=== PATIENT | female | born 1975 | race Caucasian/White ===

== ENCOUNTER 2017-09-03 23:42 | Emergency (ER) | payer BC, MEDICAID, OTHER ==
[2017-09-04] MEDS ORDERED: ACETAMINOPHEN 325 MG TABLET PO ONE (01:44)
[2017-09-04] MEDS ORDERED: CLINDAMYCIN HCL 150 MG CAPSULE PO ONE (01:44)
[2017-09-04] MEDS ORDERED: DEXAMETHASONE SOD PHOS INJ 10 MG/1 ML VIAL IV ONE (01:44)
--- NOTE | 2017-09-04 01:46 | ER Document Report ---
ED General - General Chief Complaint: Neck Swelling Stated Complaint: DIFFICULTY BREATHING Time Seen by Provider: 09/04/17 00:54 Notes: Patient is a 42-year-old female without chronic medical conditions who presents with complaints of 24 hours of neck pain and swelling. The patient reports redness and swelling to the right side of her face that has moved down into her neck. She notes a dull, throbbing, constant pain associated with the swelling. Nothing improves or worsens this discomfort. She denies a history of similar symptoms in the past. She states she believes it is coming from an infected upper posterior right molar. She denies any fever or constitutional symptoms. She states that all subjectively she feels she is having shortness of breath she admits that she has not had any labored breathing and has still been able to tolerate fluids and saliva. She has not seen her general doctor regarding today's concerns. - Related Data Allergies/Adverse Reactions: ethyl alcohol Allergy (Severe, Verified 09/03/17 23:48) Cephalosporins Allergy (Verified 09/03/17 23:48) ciprofloxacin [From Cipro] Allergy (Verified 09/03/17 23:48) fluticasone [From Flonase] Allergy (Verified 09/03/17 23:48) latex Allergy (Verified 09/03/17 23:48) Penicillins Allergy (Verified 09/03/17 23:48) Past Medical History - General Information source: Patient - Social History Smoking Status: Current Every Day Smoker Frequency of alcohol use: None Drug Abuse: None Lives with: Spouse/Significant other Family History: Reviewed & Not Pertinent Review of Systems - Review of Systems Notes: Constitutional: Negative for fever. HENT: Positive for facial pain and neck pain Eyes: Negative for visual changes. Cardiovascular: Negative for chest pain. Respiratory: Negative for shortness of breath. Gastrointestinal: Negative for abdominal pain, vomiting or diarrhea. Genitourinary: Negative for dysuria. Musculoskeletal: Negative for back pain. Skin: Negative for rash. Neurological: Negative for headaches, weakness or numbness. 10 point ROS negative except as marked above and in HPI. Physical Exam - Vital signs Vitals: Temp Pulse Resp BP Pulse Ox 98.9 F 92 22 H 145/87 H 100 09/03/17 23:46 09/03/17 23:46 09/03/17 23:46 09/03/17 23:46 09/03/17 23:46 Interpretation: Hypertensive Notes: PHYSICAL EXAMINATION: GENERAL: Well-appearing, well-nourished and in no acute distress. HEAD: Atraumatic, normocephalic. EYES: Pupils equal round and reactive to light, extraocular movements intact, sclera anicteric, conjunctiva are normal. ENT: nares patent, oropharynx clear without exudates. Moist mucous membranes. NECK: Normal range of motion, supple without lymphadenopathy LUNGS: Breath sounds clear to auscultation bilaterally and equal. No wheezes rales or rhonchi. HEART: Regular rate and rhythm without murmurs ABDOMEN: Soft, nontender, normoactive bowel sounds. No guarding, no rebound. No masses appreciated. EXTREMITIES: Normal range of motion, no pitting or edema. No cyanosis. NEUROLOGICAL: No focal neurological deficits. Moves all extremities spontaneously and on command. PSYCH: Normal mood, normal affect. SKIN: Warm, Dry, normal turgor, mild erythema over the right maxillary sinus region as well as over the right lower mandible Course - Re-evaluation Re-evalutation: 09/04/17 01:44 Patient presents with complaints of neck swelling with associated difficulty swallowing for the past 24 hours. The patient however appears in no distress, vitals within normal limits, quite loquacious on examination and without any apparent difficulty in speaking or breathing. Although the patient states she is having difficult to swallowing she is handling her oral secretions without any difficulty. He does have some mild redness over the right maxillary sinus as well as some mild swelling to the right side of the face. The patient reports that there is significant neck swelling although this appears to be more consistent with soft tissue subcutaneous fat. No stridor or wheezing on exam. History appears most consistent with a likely dental infection with associated facial cellulitis. However given the patient's reported symptoms will proceed with CT of the neck to further clarify. 09/04/17 04:28 CT abdomen soft tissue the neck unremarkable without any evidence of deep soft tissue infection or abscess. Patient has remained hemodynamically within normal limits. Had an anxiety reaction after receiving clindamycin stating that she believes she was having allergic reaction even though she only received the medication to minutes prior. The patient has no symptoms of an acute allergic reaction. She will be discharged home on clindamycin. At this time will discharge with return precautions and follow-up recommendations. Verbal discharge instructions given a the bedside and opportunity for questions given. Medication warnings reviewed. Patient is in agreement with this plan and has verbalized understanding of return precautions and the need for primary care follow-up in the next 24-72 hours. - Vital Signs Vital signs: Temp Pulse Resp BP Pulse Ox 98.9 F 92 12 123/78 97 09/03/17 23:46 09/03/17 23:46 09/04/17 03:40 09/04/17 03:40 09/04/17 03:40 - Laboratory Result Diagrams: 09/04/17 01:05 09/04/17 01:05 Laboratory results interpreted by me: 09/04/17 01:05 RDW 14.1 H - Diagnostic Test Radiology reviewed: Reports reviewed Discharge - Discharge Clinical Impression: Facial cellulitis, Neck discomfort Condition: Good Disposition: HOME, SELF-CARE Additional Instructions: The rash is likely due to infection of your skin. You need to take the antibiotics as prescribed. Do not stop even if the rash goes away until you have completed all the antibiotics. You should also return if you develop fevers with temperature greater than 101, persistent vomiting, worsening pain, or have any other symptoms that are concerning to you. The CT scan of your neck is normal and does not show any evidence of airway narrowing or a deep space infection. Prescriptions: Clindamycin HCl 300 mg PO TID #30 capsule
[2017-09-04 01:53] LABS: ABSOLUTE BASOPHILS # (AUTO) 0.1 10^3/uL (0.0-0.2); ABSOLUTE EOSINOPHILS # (AUTO) 0.4 10^3/uL (0.0-0.6); ABSOLUTE LYMPHOCYTES (AUTO) 2.5 10^3/uL (0.5-4.7); ABSOLUTE MONOCYTES (AUTO) 0.8 10^3/uL (0.1-1.4); ABSOLUTE NEUT (AUTO) 4.4 10^3/uL (1.7-8.2); BASOPHILS % (AUTO) 0.8 % (0-2); EOSINOPHILS % (AUTO) 5.3 % (0-6); HEMATOCRIT 37.4 % (36.0-47.0); HEMOGLOBIN 12.6 g/dL (12.0-15.5); LYMPHOCYTES % (AUTO) 30.8 % (13-45); MEAN CORPUSCULAR HEMOGLOBIN 30.3 pg (27.0-33.4); MEAN CORPUSCULAR HGB CONC 33.8 g/dL (32.0-36.0); MEAN CORPUSCULAR VOLUME 90 fl (80-97); MONOCYTES % (AUTO) 9.9 % (3-13); PLATELET COUNT 272 10^3/uL (150-450); RED BLOOD COUNT 4.17 10^6/uL (3.72-5.28); RED CELL DISTRIBUTION WIDTH 14.1 % (11.5-14.0); SEGMENTED NEUTROPHILS % (AUTO) 53.2 % (42-78); TOTAL CELLS COUNTED % (AUTO) 100 %; WHITE BLOOD COUNT 8.2 10^3/uL (4.0-10.5)
[2017-09-04 02:02] LABS: ANION GAP 13 (5-19); BLOOD UREA NITROGEN 11 mg/dL (7-20); CARBON DIOXIDE 25 mmol/L (22-30); CHLORIDE 106 mmol/L (98-107); GLUCOSE 88 mg/dL (75-110); POTASSIUM 4.1 mmol/L (3.6-5.0); SODIUM 143.5 mmol/L (137-145)
[2017-09-04] MEDS ORDERED: LORAZEPAM INJ 2 MG/1 ML VIAL IV ONE (02:27)
--- NOTE | 2017-09-04 04:18 | RADIOLOGY REPORT (SQ) ---
EXAM DESCRIPTION: CT NECK CHEST WITH IV CONTRAST COMPLETED DATE/TME: 09/04/2017 01:44 CLINICAL HISTORY: 42 years, Female, Evaluate neck swelling, difficulty swallowing COMPARISON: None. TECHNIQUE: Axial CT images of the neck were obtained after administration of IV contrast. Sagittal and coronal reformats were performed. DLP 606 Images stored on PACS. All CT scanners at this facility use dose modulation, iterative reconstruction, and/or weight based dosing when appropriate to reduce radiation dose to as low as reasonably achievable (ALARA). [facility]: Dose Right [facility]: CareDose [facility]: Dose Right [facility]: Teradose 4D [facility]: TrillTip LIMITATIONS: None. FINDINGS: There is no concerning asymmetry along the aerodigestive tract. No cervical lymphadenopathy. Glands: Thyroid: Unremarkable. Submandibular: Unremarkable. Parotid: Unremarkable. [place] tonsils: Unremarkable. Parapharyngeal fat: No displacement. Epiglottis: Unremarkable. Catering Chef space: Unremarkable. Prevertebral space: No edema. Vascular structures: Unremarkable. Bones: Unremarkable. IMPRESSION: Unremarkable CT of the neck TECHNICAL DOCUMENTATION: Quality ID # [id number]: Final reports with documentation of one or more dose reduction techniques (e.g., Automated exposure control, adjustment of the mA and/or kV according to patient size, use of iterative reconstruction technique) 2010 [employer]- All Rights Reserved
[2017-09-04 05:45] VITALS: BP 104/70
== END 2017-09-04 05:46 | disposition home or self-care (01) ==
LOC: EDBD → ER 23:42
DX: L03.211 Cellulitis of face (principal); M54.2 Cervicalgia; F17.200 Nicotine dependence, unspecified, uncomplicated; R13.10 Dysphagia, unspecified; F41.1 Generalized anxiety disorder; R03.0 Elevated blood-pressure reading, without diagnosis of hypertension
CPT/HCPCS: 99284; 96374; 36415; 85025; 80048; 70491; J2060

== ENCOUNTER 2017-09-05 01:56 | Emergency (ER) | payer SELFPAY ==
[2017-09-05] MEDS ORDERED: DIPHENHYDRAMINE HCL 50 MG CAPSULE PO ONE (03:25)
[2017-09-05] MEDS ORDERED: IBUPROFEN 600 MG TABLET PO ONE (03:25)
--- NOTE | 2017-09-05 03:38 | ER Document Report ---
ED General - General Chief Complaint: Allergic Reaction Stated Complaint: SWELLING IN THROAT Time Seen by Provider: 09/05/17 03:12 Notes: The patient is a 42-year-old female who presents with a scratchy throat. She was started on clindamycin for a mild facial cellulitis yesterday after she had a negative CAT scan for abscesses yesterday. She is also having some lymph node swelling. She denies difficulty swallowing, hives, nausea, vomiting or back pain or neck pain. TRAVEL OUTSIDE OF THE [place] IN LAST 30 DAYS: No - Related Data Allergies/Adverse Reactions: ethyl alcohol Allergy (Severe, Verified 09/03/17 23:48) Cephalosporins Allergy (Verified 09/03/17 23:48) ciprofloxacin [From Cipro] Allergy (Verified 09/03/17 23:48) fluticasone [From Flonase] Allergy (Verified 09/03/17 23:48) latex Allergy (Verified 09/03/17 23:48) Penicillins Allergy (Verified 09/03/17 23:48) Past Medical History - General Information source: Patient - Social History Smoking Status: Current Every Day Smoker Family History: Reviewed & Not Pertinent - Past Medical History Cardiac Medical History: Reports: Hx Heart Attack - 2010, Hx Hypertension Pulmonary Medical History: Reports: Hx COPD Neurological Medical History: Reports: Hx Migraine, Hx Seizures Renal/ Medical History: Denies: Hx Peritoneal Dialysis Past Surgical History: Reports: Hx Hysterectomy, Hx Nose Surgery, Hx Tubal Ligation Review of Systems - Review of Systems Notes: REVIEW OF SYSTEMS: CONSTITUTIONAL: -fevers, -chills EENT: -eye pain, -difficulty swallowing, -nasal congestion CARDIOVASCULAR: -chest pain, -syncope. RESPIRATORY: -cough, -SOB GASTROINTESTINAL: -abdominal pain, -nausea, -vomiting, -diarrhea GENITOURINARY: -dysuria, -hematuria MUSCULOSKELETAL: -back pain, -neck pain SKIN: -rash or skin lesions. HEMATOLOGIC: -easy bruising or bleeding. LYMPHATIC: -swollen, enlarged glands. NEUROLOGICAL: -altered mental status or loss of consciousness, -headache, - neurologic symptoms PSYCHIATRIC: -anxiety, -depression. ALL OTHER SYSTEMS REVIEWED AND NEGATIVE. Physical Exam - Vital signs Vitals: Temp Pulse Resp BP Pulse Ox 98.4 F 91 20 141/84 H 97 09/05/17 01:59 09/05/17 01:59 09/05/17 01:59 09/05/17 01:59 09/05/17 01:59 - Notes Notes: PHYSICAL EXAMINATION: GENERAL: Well-appearing, well-nourished and in no acute distress. HEAD: Atraumatic, normocephalic. EYES: Pupils equal round and reactive to light, extraocular movements intact, sclera anicteric, conjunctiva are normal. ENT: nares patent, oropharynx clear without exudates. Moist mucous membranes. NECK: Normal range of motion, supple with B/L anterior cervical lymphadenopathy LUNGS: Breath sounds clear to auscultation bilaterally and equal. No wheezes rales or rhonchi. HEART: Regular rate and rhythm without murmurs ABDOMEN: Soft, nontender, normoactive bowel sounds. No guarding, no rebound. No masses appreciated. EXTREMITIES: Normal range of motion, no pitting or edema. No cyanosis. NEUROLOGICAL: Cranial nerves grossly intact. Normal speech, normal gait. Normal sensory and motor exams. PSYCH: Normal mood, normal affect. SKIN: Warm, Dry, normal turgor, no rashes or lesions noted. Course - Re-evaluation Re-evalutation: Patient appears well and has absolutely no signs of airway involvement. She also has no signs of anaphylaxis at this time. Instructed her to continue her clindamycin, use Motrin for her lymphadenopathy and Benadryl for any itchiness. - Vital Signs Vital signs: Temp Pulse Resp BP Pulse Ox 97.7 F 86 16 126/83 H 97 09/05/17 05:02 09/05/17 05:02 09/05/17 05:02 09/05/17 05:02 09/05/17 05:02 Discharge - Discharge Clinical Impression: Lymphadenopathy of head and neck Condition: Stable Disposition: HOME, SELF-CARE Additional Instructions: Continue the clindamycin. You may take Motrin every 6 hours for any pain and Benadryl every 6 hours for any itchiness. Forms: Smoking Cessation Education, Elevated Blood Pressure
[2017-09-05 05:09] VITALS: BP 126/83
== END 2017-09-05 05:02 | disposition home or self-care (01) ==
LOC: ER 01:56
DX: L03.211 Cellulitis of face (principal); R59.0 Localized enlarged lymph nodes; R09.89 Other specified symptoms and signs involving the circulatory and respiratory systems; I10 Essential (primary) hypertension; J44.9 Chronic obstructive pulmonary disease, unspecified; F17.200 Nicotine dependence, unspecified, uncomplicated; Z88.1 Allergy status to other antibiotic agents; Z88.8 Allergy status to other drugs, medicaments and biological substances; Z91.040 Latex allergy status; Z88.0 Allergy status to penicillin
CPT/HCPCS: 99283

== ENCOUNTER 2017-10-05 22:00 | Emergency (ER) | payer SELFPAY ==
[2017-10-05] MEDS ORDERED: ASPIRIN 81 MG TABLET, CHEWABLE PO ONE (23:08)
--- NOTE | 2017-10-05 23:14 | ER Document Report ---
ED Medical Screen (RME) - General Chief Complaint: General Weakness Stated Complaint: SYNCOPE Time Seen by Provider: 10/05/17 23:06 Mode of Arrival: Medic Information source: Patient Notes: Patient is a 42-year-old female who presents with chief complaint of near syncope. Patient reports she was out shopping with her son when she felt very dizzy and nearly passed out. Patient reports she currently has shortness of breath, chest pain, dizziness and left arm pain/spasms. Patient reports that she had a negative treadmill stress test done last month at [facility], unknown if she had an echocardiogram done. Patient is alert, oriented and nontoxic in appearance. Skin is warm and dry, nondiaphoretic. Patient's vital signs are stable other than mild tachycardia noted on arrival, heart rate was 113. Patient reports history of hypertension. Patient also reports that over the last 6 weeks she has had a lot of GI issues , states she is being worked up by her primary care provider and is currently being treated for a urinary tract infection. I have greeted and performed a rapid initial assessment of this patient. A comprehensive ED assessment and evaluation of the patient, analysis of test results and completion of the medical decision making process will be conducted by additional ED providers. Dictation of this chart was performed using voice recognition software; therefore, there may be some unintended grammatical errors. TRAVEL OUTSIDE OF THE [place] IN LAST 30 DAYS: No - Related Data Allergies/Adverse Reactions: ethyl alcohol Allergy (Severe, Verified 09/03/17 23:48) Cephalosporins Allergy (Verified 09/03/17 23:48) ciprofloxacin [From Cipro] Allergy (Verified 09/03/17 23:48) fluticasone [From Flonase] Allergy (Verified 09/03/17 23:48) latex Allergy (Verified 09/03/17 23:48) Penicillins Allergy (Verified 09/03/17 23:48) Past Medical History - Past Medical History Cardiac Medical History: Reports: Hx Heart Attack - 2010, Hx Hypertension Pulmonary Medical History: Reports: Hx COPD Neurological Medical History: Reports: Hx Migraine, Hx Seizures Renal/ Medical History: Denies: Hx Peritoneal Dialysis Past Surgical History: Reports: Hx Hysterectomy, Hx Nose Surgery, Hx Tubal Ligation Physical Exam - Vital signs Vitals: Temp Pulse Resp BP Pulse Ox 98.5 F 113 H 18 132/81 H 99 10/05/17 22:11 10/05/17 22:11 10/05/17 22:11 10/05/17 22:11 10/05/17 22:11 Course - Vital Signs Vital signs: Temp Pulse Resp BP Pulse Ox 98.5 F 113 H 18 132/81 H 99 10/05/17 22:11 10/05/17 22:11 10/05/17 22:11 10/05/17 22:11 10/05/17 22:11
[2017-10-05 23:25] LABS: ABSOLUTE EOSINOPHILS # (AUTO) 0.3 10^3/uL (0.0-0.6); ABSOLUTE LYMPHOCYTES (AUTO) 3.9 10^3/uL (0.5-4.7); ABSOLUTE MONOCYTES (AUTO) 1.2 10^3/uL (0.1-1.4); ABSOLUTE NEUT (AUTO) 10.7 10^3/uL (1.7-8.2); BASOPHILS % (AUTO) 0.3 % (0-2); EOSINOPHILS % (AUTO) 2.1 % (0-6); HEMATOCRIT 41.5 % (36.0-47.0); LYMPHOCYTES % (AUTO) 23.9 % (13-45); MEAN CORPUSCULAR HGB CONC 33.7 g/dL (32.0-36.0); MEAN CORPUSCULAR VOLUME 89 fl (80-97); MONOCYTES % (AUTO) 7.5 % (3-13); PLATELET COUNT 294 10^3/uL (150-450); RED BLOOD COUNT 4.67 10^6/uL (3.72-5.28); RED CELL DISTRIBUTION WIDTH 14.2 % (11.5-14.0); SEGMENTED NEUTROPHILS % (AUTO) 66.2 % (42-78); TOTAL CELLS COUNTED % (AUTO) 100 %; WHITE BLOOD COUNT 16.2 10^3/uL (4.0-10.5)
[2017-10-05 23:36] LABS: ALANINE AMINOTRANSFERASE 23 U/L (9-52); ALBUMIN 4.6 g/dL (3.5-5.0); ALKALINE PHOSPHATASE 74 U/L (38-126); ANION GAP 14 (5-19); ASPARTATE AMINO TRANSFERASE 17 U/L (14-36); BILIRUBIN,DIRECT 0.2 mg/dL (0.0-0.4); BILIRUBIN,TOTAL 0.4 mg/dL (0.2-1.3); BLOOD UREA NITROGEN 9 mg/dL (7-20); CALCIUM 10.2 mg/dL (8.4-10.2); CARBON DIOXIDE 25 mmol/L (22-30); CHLORIDE 104 mmol/L (98-107); CREATINE KINASE 46 U/L (30-135); GLUCOSE 79 mg/dL (75-110); POTASSIUM 3.8 mmol/L (3.6-5.0); SODIUM 143.2 mmol/L (137-145); TOTAL PROTEIN 7.9 g/dL (6.3-8.2)
--- NOTE | 2017-10-05 23:36 | RADIOLOGY REPORT (SQ) ---
EXAM DESCRIPTION: XR CHEST 1 VIEW COMPLETED DATE/TME: 10/05/2017 23:08 CLINICAL HISTORY: chest pain COMPARISON: None. FINDINGS: Single frontal view of the chest. The cardiomediastinal silhouette has normal size and contour. No consolidation, pneumothorax, or pleural effusion. No displaced rib fractures identified. Upper abdominal soft tissues are unremarkable. IMPRESSION: 1. No acute pulmonary process identified.
[2017-10-05 23:49] LABS: CREATINE KINASE MB < 0.22 ng/mL (<4.55); TROPONIN I < 0.012 ng/mL
[2017-10-06] MEDS ORDERED: NORMAL SALINE 500 ML IV ONE (02:26)
--- NOTE | 2017-10-06 02:27 | ER Document Report ---
ED General - General Chief Complaint: General Weakness Stated Complaint: SYNCOPE Time Seen by Provider: 10/05/17 23:06 Mode of Arrival: Medic Notes: Patient is a 42-year-old female presents with complaint of a near syncopal episode. Patient said she had a very long day. She says that she was undergone allergy testing for Macrobid. She has multiple allergies and she was recently diagnosed with UTI and therefore they wanted to test her to make sure she was not allergic to Macrobid before starting her on it. Patient said she was exhausted from this but she had to take her son shopping therefore she took her son to the mall. They went into [employer]. She says she went back outside into the heat and humidity to smoke a cigarette and start feeling lightheaded and dizzy and therefore sat down in a chair. She did not pass out became near to passing out. No shortness of breath. No chest tightness. She did have a stress test in the last month. She also complains of intermittent crampy abdominal pain which she has had now for over a month. She is followed by her primary care doctor is referred to Dr. Hyman. She said the referral has not yet gone through. She says that she has not yet had a ultrasound of her gallbladder. Pain is worse when she eats. Pain seems to be helps some with Tums. She currently feels well after receiving IV fluids by the paramedics. Paramedics wrote no notes the patient was orthostatic when they arrived. No recent fevers. TRAVEL OUTSIDE OF THE [place] IN LAST 30 DAYS: No - Related Data Allergies/Adverse Reactions: ethyl alcohol Allergy (Severe, Verified 09/03/17 23:48) Cephalosporins Allergy (Verified 09/03/17 23:48) ciprofloxacin [From Cipro] Allergy (Verified 09/03/17 23:48) fluticasone [From Flonase] Allergy (Verified 09/03/17 23:48) latex Allergy (Verified 09/03/17 23:48) Penicillins Allergy (Verified 09/03/17 23:48) Past Medical History - General Information source: Patient - Social History Smoking Status: Unknown if Ever Smoked Frequency of alcohol use: None Drug Abuse: None Family History: Reviewed & Not Pertinent Patient has suicidal ideation: No Patient has homicidal ideation: No - Past Medical History Cardiac Medical History: Reports: Hx Heart Attack - 2010, Hx Hypertension Pulmonary Medical History: Reports: Hx COPD Neurological Medical History: Reports: Hx Migraine, Hx Seizures Renal/ Medical History: Denies: Hx Peritoneal Dialysis Past Surgical History: Reports: Hx Hysterectomy, Hx Nose Surgery, Hx Tubal Ligation Review of Systems - Review of Systems Notes: My Normal Review Basic REVIEW OF SYSTEMS: CONSTITUTIONAL : Denies fever, chills, or sweats. Denies recent illness. EENT: Denies eye, ear, throat, or mouth pain or symptoms. Denies nasal or sinus congestion. CARDIOVASCULAR: Mild chest tightness RESPIRATORY: Denies cough, cold, or chest congestion. Denies shortness of breath, difficulty breathing, or wheezing. GASTROINTESTINAL: Chronic intermittent crampy abdominal pain. Some nausea. No vomiting. GENITOURINARY: Denies difficulty urinating, painful urination, burning, frequency, or blood in urine. MUSCULOSKELETAL: Denies neck or back pain or joint pain or swelling. SKIN: Denies rash or skin lesions. NEUROLOGICAL: Denies altered mental status. Near syncope. Denies headache. Denies weakness or paralysis or loss of use of either side. Denies problems with gait or speech. Denies sensory or motor loss. ALL OTHER SYSTEMS REVIEWED AND NEGATIVE. Physical Exam - Vital signs Vitals: Temp Pulse Resp BP Pulse Ox 98.5 F 113 H 18 132/81 H 99 10/05/17 22:11 10/05/17 22:11 10/05/17 22:11 10/05/17 22:11 10/05/17 22:11 - Notes Notes: General Appearance: Well nourished, alert, cooperative, no acute distress, no obvious discomfort. Pain. Vitals: reviewed, See vital signs table. Head: no swelling or tenderness to the head Eyes: PERRL, EOMI, Conjuctiva clear Mouth: No decreasd moisture Throat: No tonsillar inflammation, No airway obstruction, No lymphadenopathy Neck: Supple, no neck tenderness, No thyromegaly Lungs: No wheezing, No rales, No rhonci, No accessory muscle use, good air exchange bilaterally. Heart: Normal rate, Regular rythm, No murmur, no rub Abdomen: Normal BS, soft, No rigidity, mild diffuse tenderness to palpation., No guarding, no rebound, no abdominal masses, no organomegaly Extremities: strength 5/5 in all extremities, good pulses in all extremities, no swelling or tenderness in the extremities, no edema. Skin: warm, dry, appropriate color, no rash Neuro: speech clear, oriented x 3, normal affect, responds appropriately to questions. Renal nerves II through XII are intact. Distal sensation intact. Patient moves all extremities without difficulty. Course - Re-evaluation Re-evalutation: 10/06/17 04:27 Patient looks very well on exam. Pressure is okay. Her heart rate is normal. She received IV fluids. Her abdominal exam is benign. I did obtain ultrasound she says it hurts every time she eats but her pain is been doing some better since she switched to a nonfatty non-fried food diet. Ultrasound showed some gallstones. There is no evidence of cholecystitis or inflammation of the gallbladder and therefore I do not think she needs surgical evaluation today however will refer her to the surgery clinic for further evaluation to determine whether or not removal of her gallbladder will help affect her recurring abdominal pain. Also given referral to Dr. Hope when she says the referral from her primary care doctor does not seem to be going through appropriately. Encourage her to drink lots of fluids. I told her she does not take the Macrobid as her urinalysis is negative. Return to ER if she has any further concerns, worsening abdominal pain, vomiting, fevers, or feels unwell. Dictation of this chart was performed using voice recognition software; therefore, there may be some unintended grammatical errors. - Vital Signs Vital signs: Temp Pulse Resp BP Pulse Ox 98.5 F 113 H 18 132/81 H 97 10/05/17 22:11 10/05/17 22:11 10/05/17 22:11 10/05/17 22:11 10/06/17 02:46 - Laboratory Result Diagrams: 10/05/17 21:45 10/05/17 21:45 Laboratory results interpreted by me: 10/05/17 10/06/17 21:45 02:50 WBC 16.2 H RDW 14.2 H Absolute Neutrophils 10.7 H Urine Protein 30 H - EKG Interpretation by Me Additional EKG results interpreted by me: 10/06/17 02:27 EKG is reviewed and interpreted by me. EKG shows sinus rhythm with rate of [address] segment elevation or depression. No ischemic T wave inversions. MT interval, QRS duration, QTc intervals are within normal range. No old EKG available for comparison. Discharge - Discharge Clinical Impression: Near syncope, Gallstones Abdominal pain Qualifiers: Abdominal location: generalized Qualified Code(s): R10.84 - Generalized abdominal pain Condition: Good Disposition: HOME, SELF-CARE Additional Instructions: Please call Dr. Hope's office and inform them that you were seen in the ER and are being referred there from the ER. Please take Tums as directed on the bottle. Please follow up with the surgery clinic (Dr. Vasquez) for evaluation of your gallstones as these could potentially be contributing to your recurrent abdominal pain. Please return to the ER immediately if you have recurrent passing out episodes, vomiting, fevers, or worsening pain. Forms: Return to Work Referrals: HERMINIA HOPE MD [ACTIVE STAFF] - Follow up in 3-5 days JASIEL VASQUEZ MD [ACTIVE STAFF] - Follow up in 3-5 days MANAN AGUILA MD [Primary Care Provider] - 10/08/17
[2017-10-06 03:14] LABS: APPEARANCE,URINE CLEAR; BILIRUBIN,URINE NEGATIVE (NEGATIVE); COLOR,URINE YELLOW; GLUCOSE, URINE NEGATIVE (NEGATIVE); KETONES,URINE NEGATIVE (NEGATIVE); LEUKOCYTE ESTERASE,URINE NEGATIVE (NEGATIVE); NITRITE,URINE NEGATIVE (NEGATIVE); PROTEIN,URINE 30 mg/dL (NEGATIVE); URINE SPECIFIC GRAVITY 1.004; UROBILINOGEN,URINE NEGATIVE mg/dL (<2.0)
--- NOTE | 2017-10-06 04:01 | RADIOLOGY REPORT (SQ) ---
CLINICAL DATA: 42-year-old female with right upper quadrant pain. TECHNICAL DATA: Limited sonographic imaging of the right upper quadrant was performed on 10/06/2017 at 3:07 AM. Comparison: None. FINDINGS: The liver is mildly enlarged and measures 18 cm in greatest sagittal dimension. The liver demonstrates normal echogenicity. No focal hepatic abnormalities are identified. Doppler imaging reveals patency of the portal vein and normal hepatopedal flow. The gallbladder is well distended and contains a large shadowing echogenic focus consistent with a gallstone. This measures approximately 4.2 x 2.9 x 1.5 cm. There are additional smaller echogenic foci within the gallbladder lumen. The gallbladder wall measures 2 to 3 mm in diameter. No sonographic Vásquez sign was detected by the technologist. There is no evidence of biliary ductal dilatation. The common bile duct measures 5 mm in diameter. The right kidney is normal in size, shape and echogenicity without hydronephrosis or definite nephrolithiasis. The right kidney measures 11.6 cm in length.. There is no evidence of free fluid in the abdomen. The pancreas is grossly normal in size, shape and echogenicity. The visualized aorta is normal in caliber and contour. The distal aorta is not well visualized on this examination. IMPRESSION: 1. Cholelithiasis without evidence of biliary ductal dilatation, gallbladder wall thickening or sonographic Vásquez sign. 2. Mild hepatomegaly.
[2017-10-06 04:25] VITALS: BP 100/66
--- NOTE | 2017-10-06 08:42 | EKG REPORT ---
SEVERITY:- NORMAL ECG - SINUS RHYTHM : Confirmed by: Tomasz Mir 06-Oct-2017 08:41:41
== END 2017-10-06 04:30 | disposition home or self-care (01) ==
LOC: ER 22:00
DX: K85.10 Biliary acute pancreatitis without necrosis or infection (principal); R10.84 Generalized abdominal pain; R53.1 Weakness; R55 Syncope and collapse; R42 Dizziness and giddiness; R07.9 Chest pain, unspecified; R11.0 Nausea; F17.210 Nicotine dependence, cigarettes, uncomplicated; I25.2 Old myocardial infarction; I10 Essential (primary) hypertension; J44.9 Chronic obstructive pulmonary disease, unspecified
CPT/HCPCS: 93005; 99284; 96360; 51701; 36415; 82553; 82550; 85025; 80053; 81001; 84484; 71045; 76705; 93976; 93010; J7040

== ENCOUNTER 2017-10-18 22:33 | Emergency (ER) | payer OTHER ==
[2017-10-18] MEDS ORDERED: ONDANSETRON HCL INJ/PF 4 MG/2 ML SDV IV ONE (23:20)
[2017-10-18] MEDS ORDERED: NORMAL SALINE 1000 ML 1,000 ML IV ONE (23:20)
--- NOTE | 2017-10-18 23:23 | ER Document Report ---
ED General - General Mode of Arrival: Ambulatory Information source: Patient TRAVEL OUTSIDE OF THE [place] IN LAST 30 DAYS: No <ANNAMARIE DE LA ROSA - Last Filed: 10/19/17 01:41> <SITA OLVERA - Last Filed: 10/19/17 02:31> - General Chief Complaint: Nausea Stated Complaint: DIZZINESS,NAUSEA Time Seen by Provider: 10/18/17 22:56 Notes: Patient is a 42 year old female with a history of [place] presenting to the emergency department complaining of a 2 month history of multiple symptoms including nausea, abdominal pain, abdominal swelling, constipation, headache, heart palpitations and dizziness. Patient states she was recently diagnosed with gallstones on 10/05/2017 and feels her abdominal pain and swelling are due to the gallstones. She describes her abdominal pain as a waxing and waning that is stabbing and increasing in severity. She mentions the pain is exacerbated with solids and liquids, further stating she feels some of the food she consumes will become stuck around her diaphragm. She states she feels she becomes dizzy after she has been standing for approximately 10 minutes and attributes this to her blood pressure dropping. She then states her heart rate would jump from 50 bpm to 125 bpm. Patient denies any fevers. Patient mentions completely changing her diet after since the onset of her abdominal pain onset approximately 2 months ago. She also mentions starting her menstrual cycle 2 days ago further stating she normally has lower abdominal pain with her periods due to endometriosis. She further mentions having a full cardiac workup including a negative cardiac stress test in August due to having similar symptoms. She also states she has a consult with Dr. Vasquez tomorrow morning. (ANNAMARIE DE LA ROSA) - Related Data Allergies/Adverse Reactions: ethyl alcohol Allergy (Severe, Verified 09/03/17 23:48) Cephalosporins Allergy (Verified 09/03/17 23:48) ciprofloxacin [From Cipro] Allergy (Verified 09/03/17 23:48) fluticasone [From Flonase] Allergy (Verified 09/03/17 23:48) latex Allergy (Verified 09/03/17 23:48) Penicillins Allergy (Verified 09/03/17 23:48) Past Medical History - General Information source: Patient - Social History Smoking Status: Current Every Day Smoker Cigarette use (# per day): Yes Chew tobacco use (# tins/day): No Smoking Education Provided: No Frequency of alcohol use: Occasional Family History: Reviewed & Not Pertinent Patient has suicidal ideation: No Patient has homicidal ideation: No - Past Medical History Cardiac Medical History: Reports: Hx Heart Attack - 2010, Hx Hypertension Pulmonary Medical History: Reports: Hx COPD Neurological Medical History: Reports: Hx Migraine, Hx Seizures Past Surgical History: Reports: Hx Gynecologic Surgery, Hx Hysterectomy, Hx Nose Surgery, Hx Tubal Ligation <ANNAMARIE DE LA ROSA - Last Filed: 10/19/17 01:41> Review of Systems - Review of Systems Constitutional: No symptoms reported EENT: No symptoms reported Cardiovascular: See HPI, Palpitations, Dizziness Respiratory: No symptoms reported Gastrointestinal: See HPI, Abdominal pain, Nausea, Constipation Genitourinary: No symptoms reported Female Genitourinary: See HPI, Last menstrual period Musculoskeletal: No symptoms reported Skin: No symptoms reported Hematologic/Lymphatic: No symptoms reported Neurological/Psychological: See HPI, Headaches -: Yes All other systems reviewed and negative <ANNAMARIE DE LA ROSA - Last Filed: 10/19/17 01:41> Physical Exam <ANNAMARIE DE LA ROSA - Last Filed: 10/19/17 01:41> <SITA OLVERA - Last Filed: 10/19/17 02:31> - Vital signs Vitals: Temp Pulse Resp BP Pulse Ox 97.8 F 92 17 129/98 H 97 10/18/17 22:38 10/18/17 22:38 10/18/17 22:38 10/18/17 22:38 10/18/17 22:38 - Notes Notes: GENERAL: Alert, interacts well. No acute distress. HEAD: Normocephalic, atraumatic. EYES: Pupils equal, round, and reactive to light. Extraocular movements intact. ENT: Oral mucosa moist, tongue midline. NECK: Full range of motion. Supple. Trachea midline. LUNGS: Clear to auscultation bilaterally, no wheezes, rales, or rhonchi. No respiratory distress. HEART: Mildly tachycardic. No murmurs, gallops, or rubs. ABDOMEN: Soft, tender to palpation to the RLQ and RUQ. Non-distended. Bowel sounds present in all 4 quadrants. EXTREMITIES: Moves all 4 extremities spontaneously. NEUROLOGICAL: Alert and oriented x3. Normal speech. PSYCH: Normal affect, normal mood. SKIN: Warm, dry, normal turgor. No rashes or lesions noted. (ANNAMARIE DE LA ROSA) Course - Laboratory Result Diagrams: 10/18/17 23:39 10/18/17 23:39 <ANNAMARIE DE LA ROSA - Last Filed: 10/19/17 01:41> - Laboratory Result Diagrams: 10/18/17 23:39 10/18/17 23:39 <SITA OLVERA - Last Filed: 10/19/17 02:31> - Re-evaluation Re-evalutation: 10/19/17 00:15 Abdominal exam was repeated after she urinated, patient has no further right lower quadrant tenderness to palpation. Doubt appendicitis given the fact that the pain resolved after urinating. 10/19/17 01:29 CBC unremarkable, CMP grossly unremarkable, lipase normal, test negative, urinalysis shows small blood and small leukocyte esterase but she has no urinary symptoms, patient is also on her menstrual period so I suspect this is contamination. Will be sent for culture. test is negative. Right upper quadrant limited ultrasound shows mildly enlarged liver, no ascites , large 4.2 cm shadowing gallstone, no gallbladder wall thickening or pericholecystic fluid, small amount of gallbladder sludge, no biliary ductal dilation, no evidence of acute cholecystitis. Patient is feeling better, patient had concerns that she was becoming tachycardic and bradycardic as well as hypotensive however she has been on the monitor through the majority of her stay and she has had no lability to her blood pressure or heart rate. Patient has been able to ambulate to the bathroom without difficulty. Patient has a follow-up appointment with Dr. Vasquez later today, she will be discharged to home. She was offered the possibility of consulting with surgery now for possible elective cholecystectomy in the morning. Patient states she would rather do outpatient follow-up. Patient will be discharged to home. States she already has some hydrocodone at home. (SITA OLVERA) - Vital Signs Vital signs: Temp Pulse Resp BP Pulse Ox 98.5 F 92 12 139/87 H 98 10/19/17 01:51 10/18/17 22:38 10/19/17 01:51 10/19/17 01:51 10/19/17 01:51 - Laboratory Laboratory results interpreted by me: 10/18/17 10/18/17 23:39 23:39 Calcium 10.6 H Urine Blood SMALL H Ur Leukocyte Esterase SMALL H Discharge <ANNAMARIE DE LA ROSA - Last Filed: 10/19/17 01:41> <SITA OLVERA - Last Filed: 10/19/17 02:31> - Discharge Clinical Impression: RUQ abdominal pain, Nausea Cholelithiasis Qualifiers: Cholelithiasis location: gallbladder Cholecystitis presence: without cholecystitis Biliary obstruction: without biliary obstruction Qualified Code(s) : K80.20 - Calculus of gallbladder without cholecystitis without obstruction Condition: Stable Disposition: HOME, SELF-CARE Additional Instructions: Today we found a large 4.2 cm gallstone. There is no evidence of blockage or infection. Please keep your follow-up appointment with Dr. Vasquez later today. Please return for vomiting, fever or any new or concerning symptoms. If you are having pain you may take one of your hydrocodone that you already have at home. Referrals: MANAN AGUILA MD [Primary Care Provider] - Follow up as needed JASIEL VASQUEZ MD [ACTIVE STAFF] - 10/19/17 Scribe Attestation: 10/19/17 01:50 I personally performed the services described in the documentation, reviewed and edited the documentation which was dictated to the scribe in my presence, and it accurately records my words and actions. (SITA OLVERA) Scribe Documentation - Scribe Written by Scribe:: Mita Palma, 10/18/2017 23:57 acting as scribe for :: Nitesh <ANNAMARIE DE LA ROSA - Last Filed: 10/19/17 01:41>
[2017-10-18 23:49] LABS: ABSOLUTE BASOPHILS # (AUTO) 0.1 10^3/uL (0.0-0.2); ABSOLUTE EOSINOPHILS # (AUTO) 0.5 10^3/uL (0.0-0.6); ABSOLUTE LYMPHOCYTES (AUTO) 3.1 10^3/uL (0.5-4.7); ABSOLUTE MONOCYTES (AUTO) 0.6 10^3/uL (0.1-1.4); ABSOLUTE NEUT (AUTO) 4.5 10^3/uL (1.7-8.2); BASOPHILS % (AUTO) 0.8 % (0-2); EOSINOPHILS % (AUTO) 5.7 % (0-6); HEMATOCRIT 41.6 % (36.0-47.0); HEMOGLOBIN 14.3 g/dL (12.0-15.5); LYMPHOCYTES % (AUTO) 35.2 % (13-45); MEAN CORPUSCULAR HEMOGLOBIN 30.2 pg (27.0-33.4); MEAN CORPUSCULAR HGB CONC 34.3 g/dL (32.0-36.0); MEAN CORPUSCULAR VOLUME 88 fl (80-97); MONOCYTES % (AUTO) 6.7 % (3-13); PLATELET COUNT 261 10^3/uL (150-450); RED BLOOD COUNT 4.74 10^6/uL (3.72-5.28); SEGMENTED NEUTROPHILS % (AUTO) 51.6 % (42-78); TOTAL CELLS COUNTED % (AUTO) 100 %; WHITE BLOOD COUNT 8.8 10^3/uL (4.0-10.5)
[2017-10-18 23:56] LABS: APPEARANCE,URINE CLEAR; BILIRUBIN,URINE NEGATIVE (NEGATIVE); COLOR,URINE COLORLESS; GLUCOSE, URINE NEGATIVE (NEGATIVE); KETONES,URINE NEGATIVE (NEGATIVE); LEUKOCYTE ESTERASE,URINE SMALL (NEGATIVE); NITRITE,URINE NEGATIVE (NEGATIVE); PROTEIN,URINE NEGATIVE (NEGATIVE); URINE SPECIFIC GRAVITY 1.002; UROBILINOGEN,URINE NEGATIVE mg/dL (<2.0)
[2017-10-19 00:11] LABS: ALANINE AMINOTRANSFERASE 23 U/L (9-52); ALBUMIN 4.6 g/dL (3.5-5.0); ALKALINE PHOSPHATASE 74 U/L (38-126); ANION GAP 12 (5-19); ASPARTATE AMINO TRANSFERASE 17 U/L (14-36); BILIRUBIN,DIRECT 0.3 mg/dL (0.0-0.4); BILIRUBIN,TOTAL 0.3 mg/dL (0.2-1.3); BLOOD UREA NITROGEN 7 mg/dL (7-20); CALCIUM 10.6 mg/dL (8.4-10.2); CARBON DIOXIDE 27 mmol/L (22-30); CHLORIDE 105 mmol/L (98-107); GLUCOSE 87 mg/dL (75-110); LIPASE 140.9 U/L (23-300); POTASSIUM 3.7 mmol/L (3.6-5.0); SODIUM 144.2 mmol/L (137-145); TOTAL PROTEIN 7.9 g/dL (6.3-8.2)
--- NOTE | 2017-10-19 00:47 | RADIOLOGY REPORT (SQ) ---
US ABDOMEN LIMITED HISTORY: RUQ pain, h/o gallstones COMPARISON: None. TECHNIQUE: Grayscale and color Doppler imaging of the right upper quadrant was performed. FINDINGS: Liver is mildly enlarged, measuring 17.7 cm. Normal liver echogenicity. No perihepatic ascites is seen. Large 4.2 cm shadowing gallstone. No gallbladder wall thickening or pericholecystic fluid. Small amount of gallbladder sludge. Common bile duct measures 3 mm. No intrahepatic biliary ductal dilatation. Visualized pancreas is unremarkable. Right kidney measures 11.4 cm in length, without hydronephrosis. Visualized portions of the IVC and aorta are patent. IMPRESSION: Cholelithiasis without evidence of acute cholecystitis.
[2017-10-19 01:54] VITALS: BP 139/87
== END 2017-10-19 01:54 | disposition home or self-care (01) ==
LOC: ER 22:33
DX: K80.20 Calculus of gallbladder without cholecystitis without obstruction (principal); R10.11 Right upper quadrant pain; R11.0 Nausea; R42 Dizziness and giddiness; I25.2 Old myocardial infarction; R19.00 Intra-abdominal and pelvic swelling, mass and lump, unspecified site; K59.00 Constipation, unspecified; R51 Headache; R00.2 Palpitations; F17.210 Nicotine dependence, cigarettes, uncomplicated; I10 Essential (primary) hypertension; J44.9 Chronic obstructive pulmonary disease, unspecified
CPT/HCPCS: 99284; 96360; 36415; 87086; 83690; 84703; 85025; 87088; 80053; 81001; 87186; 76705; J7030

== ENCOUNTER 2017-11-03 23:13 | Emergency (ER) | payer OTHER ==
--- NOTE | 2017-11-03 23:26 | ER Document Report ---
ED General - General Stated Complaint: ABDOMINAL PAIN Time Seen by Provider: 11/03/17 23:21 TRAVEL OUTSIDE OF THE [place] IN LAST 30 DAYS: No - HPI Notes: 42-year-old female with multiple complaints. Her chief complaint seems to be that her blood pressure shot up. She was noting she was having some headache and noted some knots on the back of her head. She noticed her blood pressure was increasing and she became increasingly worried and developed chest tightness some breathing difficulty diffuse numbness and tingling and dizziness. She also has been having problems with abdominal pain supposed to have her gallbladder out next week. She states this was a little bit worse today. No specific fever cough or cold symptoms. No visual change. She reports a history of myocardial infarction treated with 3 nitroglycerin and Ativan but never had to have a heart catheterization. Apparently she had a follow-up stress test that showed no significant abnormalities as well. She had been on metoprolol but stopped the metoprolol in the past as she did not like the way it made her feel. - Related Data Allergies/Adverse Reactions: Cephalosporins Allergy (Severe, Verified 11/03/17 23:34) RASH ciprofloxacin [From Cipro] Allergy (Severe, Verified 11/03/17 23:34) RASH ethyl alcohol Allergy (Severe, Verified 11/03/17 23:34) Shortness of Breath fluticasone [From Flonase] Allergy (Severe, Verified 11/03/17 23:34) Shortness of Breath latex Allergy (Severe, Verified 11/03/17 23:34) RASH Penicillins Allergy (Severe, Verified 11/03/17 23:34) Migraine pantoprazole [From Protonix] Allergy (Verified 11/03/17 23:34) IV dye Allergy (Uncoded 11/03/17 23:47) Past Medical History - Social History Smoking Status: Former Smoker Family History: Reviewed & Not Pertinent - Past Medical History Cardiac Medical History: Reports: Hx Heart Attack - 2010, Hx Hypertension - hx not current Denies: Hx Coronary Artery Disease Pulmonary Medical History: Reports: Hx Asthma, Hx COPD - INHALERS Denies: Hx Bronchitis, Hx Pneumonia Neurological Medical History: Reports: Hx Migraine, Hx Seizures - NO MEDS-LAST 2013-not current. Denies: Hx Cerebrovascular Accident Renal/ Medical History: Denies: Hx Peritoneal Dialysis Musculoskeletal Medical History: Denies Hx Arthritis Past Surgical History: Reports: Hx Gynecologic Surgery, Hx Hysterectomy, Hx Nose Surgery, Hx Tubal Ligation - Immunizations Hx Diphtheria, Pertussis, Tetanus Vaccination: No Review of Systems - Review of Systems -: Yes All other systems reviewed and negative Physical Exam - Vital signs Vitals: Pulse Ox 100 11/03/17 23:19 - Notes Notes: GENERAL: VS as per nursing doc. Well-appearing, well-nourished and in no acute distress. HEAD: Atraumatic, normocephalic. EYES: Pupils equal round and reactive to light, extraocular movements intact, sclera anicteric, no conjunctival injection or discharge. ENT: Nares patent, oropharynx clear without exudates, moist mucous membranes. Patient has a small palpable nodule that is erythematous in the right occipital region. There are a few occipital nodes otherwise appear nontender. I do not see any lesions in the hair region itself. NECK: Normal range of motion, supple without lymphadenopathy. LUNGS: Breath sounds clear to auscultation bilaterally and equal. No wheezes rales or rhonchi. HEART: Regular rate and rhythm without murmurs. ABDOMEN: Soft, generalized abdominal tenderness, normoactive bowel sounds. No guarding, no rebound. No masses appreciated. No [place] sign. BACK: No CVA tenderness. EXTREMITIES: Normal range of motion, no calf tenderness, no edema. NEUROLOGICAL: Cranial nerves grossly intact. Normal speech. Normal sensory and motor exams. No gross cerebellar abnormalities. PSYCH: Normal mood, normal affect. SKIN: Warm, dry, normal turgor, no lesions noted. Course - Re-evaluation Re-evalutation: 11/04/17 01:[address] 11/03/17 23:22 IMPRESSION: No acute intracranial abnormality. Chest X-Ray 11/03/17 23:23 IMPRESSION: No acute abnormality is identified. I reviewed findings with the patient. She just generally feels bad at this point complaining of more of her gallbladder pain than anything. She reports she can take Percocet so I will give her one while she is here as we wait for a repeat cardiac enzyme. Her prior [place] history is confusing as she never even had a heart catheterization. 11/04/17 02:48 The patient complained with multiple rotating complaints but none seemed more significant now. She was very appreciative of the Percocet because she said her gallbladder pain had flared up. She does have some Vicodin at home she states she will use and will talk to Dr. Vasquez tomorrow. Her blood pressure has improved and currently is 126/82. She states she can take clindamycin and is a full prescription at home but she has to take Benadryl with it. Due to her significant allergies I suggested she watched a small little area on the right posterior neck and watch and make sure she does not develop an abscess in that region. She is comfortable with discharge and will get follow-up. - Vital Signs Vital signs: Temp Pulse Resp BP Pulse Ox 98 F 20 135/90 H 100 11/03/17 23:20 11/03/17 23:30 11/03/17 23:20 11/03/17 23:20 - Laboratory Result Diagrams: 11/03/17 23:40 11/04/17 00:05 Laboratory results interpreted by me: 11/03/17 11/03/17 11/04/17 23:40 23:52 00:05 RDW 14.3 H Chloride 108 H Ur Leukocyte Esterase LARGE H - Diagnostic Test Radiology reviewed: Reports reviewed - EKG Interpretation by Me EKG shows normal: Sinus rhythm - First-degree AV block, normal ST segments. Normal QRS. Normal intervals. No clear ischemia. Discharge - Discharge Clinical Impression: Chest pain, Posterior cervical adenopathy, Paresthesia, Dysfunctional gallbladder, Abdominal pain Condition: Good Disposition: HOME, SELF-CARE Additional Instructions: Please follow-up with your primary care physician. Contact them tomorrow as well as Dr. Vasquez as you have been having the increasing abdominal discomfort. Return for emergency or concern. Referrals: MANAN AGUILA MD [Primary Care Provider] - Follow up as needed
[2017-11-03 23:45] VITALS: BP 135/90
[2017-11-03 23:57] LABS: ABSOLUTE BASOPHILS # (AUTO) 0.1 10^3/uL (0.0-0.2); ABSOLUTE EOSINOPHILS # (AUTO) 0.5 10^3/uL (0.0-0.6); ABSOLUTE LYMPHOCYTES (AUTO) 2.3 10^3/uL (0.5-4.7); ABSOLUTE MONOCYTES (AUTO) 0.7 10^3/uL (0.1-1.4); BASOPHILS % (AUTO) 0.7 % (0-2); EOSINOPHILS % (AUTO) 5.2 % (0-6); HEMATOCRIT 37.6 % (36.0-47.0); HEMOGLOBIN 12.8 g/dL (12.0-15.5); LYMPHOCYTES % (AUTO) 24.3 % (13-45); MEAN CORPUSCULAR HEMOGLOBIN 29.6 pg (27.0-33.4); MEAN CORPUSCULAR VOLUME 87 fl (80-97); PLATELET COUNT 276 10^3/uL (150-450); RED BLOOD COUNT 4.31 10^6/uL (3.72-5.28); RED CELL DISTRIBUTION WIDTH 14.3 % (11.5-14.0); SEGMENTED NEUTROPHILS % (AUTO) 62.8 % (42-78); TOTAL CELLS COUNTED % (AUTO) 100 %; WHITE BLOOD COUNT 9.5 10^3/uL (4.0-10.5)
--- NOTE | 2017-11-03 23:57 | RADIOLOGY REPORT (SQ) ---
EXAM DESCRIPTION: CT HEAD WITHOUT IV CONTRAST COMPLETED DATE/TME: 11/03/2017 23:22 CLINICAL HISTORY: 42 years, Female, [place] COMPARISON: None. TECHNIQUE: Images stored on PACS. All CT scanners at this facility use dose modulation, iterative reconstruction, and/or weight based dosing when appropriate to reduce radiation dose to as low as reasonably achievable (ALARA). [facility]: Dose Right [facility]: CareDose [facility]: Dose Right [facility]: Teradose 4D [facility]: Smart Technologies LIMITATIONS: None. FINDINGS: EXAM DESCRIPTION: CLINICAL HISTORY: [place] COMPARISON: None Available TECHNIQUE: Contiguous axial CT images of the head were obtained. Coronal and sagittal reconstructions were created from the axial data. This exam was performed according to our departmental dose-optimization program, which includes automated exposure control, adjustment of the mA and/or kV according to patient size and/or use of iterative reconstruction technique. FINDINGS: There is mild paranasal sinus mucosal thickening. There is no evidence of acute mass, mass effect, midline shift or hemorrhage. The ventricles and extra-axial CSF spaces are unremarkable. The brain parenchyma appears normal for the patient's age. No acute abnormalities of the bones is seen. IMPRESSION: No acute intracranial abnormality.
--- NOTE | 2017-11-04 00:03 | RADIOLOGY REPORT (SQ) ---
EXAM DESCRIPTION: Chest single view COMPLETED DATE/TME: 11/03/2017 23:23 CLINICAL HISTORY: 42 years Female [place] COMPARISON: None. FINDINGS: The cardiomediastinal silhouette appears unremarkable. No consolidating infiltrates or pleural effusions. No pneumothorax. IMPRESSION: No acute abnormality is identified.
[2017-11-04 00:20] LABS: APPEARANCE,URINE CLEAR; BILIRUBIN,URINE NEGATIVE (NEGATIVE); COLOR,URINE STRAW; GLUCOSE, URINE NEGATIVE (NEGATIVE); KETONES,URINE NEGATIVE (NEGATIVE); LEUKOCYTE ESTERASE,URINE LARGE (NEGATIVE); NITRITE,URINE NEGATIVE (NEGATIVE); PROTEIN,URINE NEGATIVE (NEGATIVE); URINE SPECIFIC GRAVITY 1.002; UROBILINOGEN,URINE NEGATIVE mg/dL (<2.0)
[2017-11-04 00:28] LABS: ALANINE AMINOTRANSFERASE 21 U/L (9-52); ALBUMIN 3.8 g/dL (3.5-5.0); ALKALINE PHOSPHATASE 64 U/L (38-126); ANION GAP 9 (5-19); ASPARTATE AMINO TRANSFERASE 15 U/L (14-36); BILIRUBIN,DIRECT 0.2 mg/dL (0.0-0.4); BILIRUBIN,TOTAL 0.2 mg/dL (0.2-1.3); BLOOD UREA NITROGEN 8 mg/dL (7-20); CALCIUM 10.2 mg/dL (8.4-10.2); CARBON DIOXIDE 23 mmol/L (22-30); CHLORIDE 108 mmol/L (98-107); GLUCOSE 110 mg/dL (75-110); LIPASE 115.3 U/L (23-300); POTASSIUM 3.9 mmol/L (3.6-5.0); SODIUM 140.4 mmol/L (137-145); TOTAL PROTEIN 6.6 g/dL (6.3-8.2)
[2017-11-04] MEDS ORDERED: OXYCODONE-ACETAMINOPHEN 5-325 MG TABLET PO ONE (01:09)
--- NOTE | 2017-11-04 13:48 | EKG REPORT ---
SEVERITY:- ABNORMAL ECG - SINUS RHYTHM FIRST DEGREE AV BLOCK : Confirmed by: Nicole Rodriguez MD 04-Nov-2017 13:46:46
== END 2017-11-04 03:12 | disposition home or self-care (01) ==
LOC: ER 23:13
DX: R07.9 Chest pain, unspecified (principal); R59.9 Enlarged lymph nodes, unspecified; R20.2 Paresthesia of skin; K82.8 Other specified diseases of gallbladder; R10.9 Unspecified abdominal pain; Z87.891 Personal history of nicotine dependence
CPT/HCPCS: 36415; 70450; 71045; 80053; 81001; 81025; 83690; 84484; 85025; 87086; 87088; 87186; 93005; 93010; 99285

== ENCOUNTER 2017-11-10 07:27 | Day surgery (SDC) | payer OTHER ==
[2017-11-05 09:34] LABS: HEMATOCRIT 39.6 % (36.0-47.0); HEMOGLOBIN 13.3 g/dL (12.0-15.5); MEAN CORPUSCULAR HEMOGLOBIN 29.6 pg (27.0-33.4); MEAN CORPUSCULAR HGB CONC 33.5 g/dL (32.0-36.0); MEAN CORPUSCULAR VOLUME 88 fl (80-97); PLATELET COUNT 253 10^3/uL (150-450); RED BLOOD COUNT 4.49 10^6/uL (3.72-5.28); WHITE BLOOD COUNT 8.9 10^3/uL (4.0-10.5)
[2017-11-05 09:54] LABS: ALANINE AMINOTRANSFERASE 25 U/L (9-52); ALBUMIN 4.4 g/dL (3.5-5.0); ALKALINE PHOSPHATASE 57 U/L (38-126); AMYLASE 47 U/L (30-110); ANION GAP 8 (5-19); ASPARTATE AMINO TRANSFERASE 16 U/L (14-36); BILIRUBIN,DIRECT 0.4 mg/dL (0.0-0.4); BILIRUBIN,TOTAL 0.5 mg/dL (0.2-1.3); BLOOD UREA NITROGEN 6 mg/dL (7-20); CALCIUM 10.2 mg/dL (8.4-10.2); CARBON DIOXIDE 26 mmol/L (22-30); CHLORIDE 106 mmol/L (98-107); GLUCOSE 94 mg/dL (75-110); POTASSIUM 4.5 mmol/L (3.6-5.0); SODIUM 139.7 mmol/L (137-145); TOTAL PROTEIN 7.6 g/dL (6.3-8.2)
--- NOTE | 2017-11-06 12:43 | EKG REPORT ---
SEVERITY:- OTHERWISE NORMAL ECG - SINUS RHYTHM ATRIAL PREMATURE COMPLEX : Confirmed by: Nicole Rodriguez MD 06-Nov-2017 12:42:01
[~2017-11-10 07:27] MED LIST: ACETAMINOPHEN 325 MG TABLET PO PRN; BUPIVACAINE HCL 0.5 % INJ/PF 30 ML SDV ONE; LACTATED RINGERS 1000 ML IV PRN
[2017-11-10] MEDS ORDERED: CLINDAMYCIN 600 MG/D5W RTU 600 MG/50 ML RTUPB IV ONE (09:02)
[2017-11-10] MEDS ORDERED: FENTANYL CITRATE INJ/PF 100 MCG/2 ML AMPUL ONE (09:31)
[2017-11-10] MEDS ORDERED: DEXAMETHASONE SOD PHOSPHATE INJ 4 MG/1 ML VIAL ONE (09:31)
[2017-11-10] MEDS ORDERED: ONDANSETRON HCL INJ/PF 4 MG/2 ML SDV ONE ×2 (09:31→11:31)
[2017-11-10] MEDS ORDERED: KETOROLAC TROMETHAMINE 60 MG/2 ML SDV ONE (09:31)
[2017-11-10] MEDS ORDERED: MIDAZOLAM 2 MG/2 ML INJ ONE (09:31)
[2017-11-10] MEDS ORDERED: PROPOFOL INJ 200 MG/20 ML VIAL IV ONE (09:32)
[2017-11-10] MEDS ORDERED: OXYCODONE-ACETAMINOPHEN 5-325 MG TABLET PO PRN ×2 (10:23)
[2017-11-10] MEDS ORDERED: PROMETHAZINE HCL INJ 25 MG/1 ML VIAL IV PRN ×2 (10:23)
[2017-11-10] MEDS ORDERED: FENTANYL CITRATE INJ/PF 100 MCG/2 ML AMPUL IV PRN ×3 (10:23)
[2017-11-10] MEDS ORDERED: ONDANSETRON HCL INJ/PF 4 MG/2 ML SDV IV PRN (10:23)
[2017-11-10] MEDS ORDERED: DIPHENHYDRAMINE HCL 50 MG/ML VIAL IV PRN (10:23)
[2017-11-10] MEDS ORDERED: MORPHINE SULFATE 10 MG/ML INJ IV PRN (10:23)
[2017-11-10] MEDS ORDERED: MEPERIDINE HCL/PF INJ 25 MG/1 ML DISP.SYRIN IV PRN (10:23)
[2017-11-10] MEDS ORDERED: HYDROMORPHONE HCL INJ/PF 2 MG/ML AMPULE ONE (10:32)
[2017-11-10] MEDS ORDERED: NEOSTIGMINE METHYLSULFATE 10 MG/10 ML VIAL ONE (10:38)
[2017-11-10] MEDS ORDERED: SUCCINYLCHOLINE CHLORIDE INJ 200 MG/10 ML VIAL ONE (10:38)
[2017-11-10] MEDS ORDERED: GLYCOPYRROLATE 1 MG/5 ML SYRINGE ONE (10:38)
--- NOTE | 2017-11-10 10:47 | Discharge Summary ---
Discharge Summary (SDC) - Discharge Final Diagnosis: acute cholecystitis with cholelithiasis Date of Surgery: 11/10/17 Discharge Date: 11/10/17 Condition: Stable Treatment or Instructions: [facility] [address] [place] [id number] Discharge Instructions: Laparoscopic Surgery 1. General Information: a. DO NOT DRIVE a car or operate dangerous machinery for 3-4 days or while taking narcotic pain pills. b. DO NOT consume alcohol, tranquilizers, sleeping medications or any non- prescribed medications for 24 hours unless approved by your doctor or as long as taking narcotic prescription medications. c. DO NOT make important decisions or sign any important papers for the first 24 hours after surgery. d. When discharged home the same day of surgery have a responsible person with you for the first night. 2. Activity Restrictions: 4 weeks. a. NO heavy lifting, straining abdominal muscles, bending over a lot, yard work, house work, or sports for [address] for 3-4 day. c. It is fine to go for walks, up and down steps, ride in a car. d. Elevate your head when sleeping/resting. 3. Treatment: a. You may shower 24 hours after surgery, no baths or swimming for 2 weeks. Remove band-aids or dressings before shower but leave paper strips (steri-strips ) on the skin to fall off on their own. If still on at postoperative visit they will be removed then. b. Drainage of fluid or blood is not unusual from an incision. If occurs, you can clean with peroxide and cotton ball daily and cover with dry gauze until the wound seals. c. If a lot of bleeding occurs, you can hold pressure with a gauze or cloth over the site for 10 minutes and it will usually stop. If bleeding continues you will need to call for possible evaluation in office or emergency room. 4. Medications: a. ___Toradol__ may be taken for pain as needed, one tablet every 6 hours. b. You should resume all normal medications unless a change is specified by your doctors. 5. Diet: Begin with clear liquids and may progress to your normal diet if not nauseated. No high fat, high protein foods the day of surgery. 6. The following may occur after laparoscopic surgery: a. Shoulder or upper back ache from retained gas that should resolve in 1-2 days b. Soreness and bruising at incision sites will resolve with time. c. Scrotal swelling (labia in women) and bruising is often seen after hernia surgery. d. Sore throat e. Fatigue may last days to weeks. f. Difficulty urinating may occur and may need to come into emergency room for urinary catheter placement. 7. Notify Physician If: a. Worsening or pain not improved with pain medication b. Persistent nausea and vomiting c. Fever above 101 d. Persistent bleeding or swelling at operative site e. Unable to urinate and uncomfortable bladder 6-8 hours after surgery 8..Follow Up Care: a. Schedule a follow up appointment with your doctor for 2 weeks. In the event of any postoperative problems or questions or you may call the office during business hours or the On-Call physician evenings and weekends at [facility]. [facility] I understand the instructions for my postoperative care as described above and a copy has been given to me. Patient/Significant Other Witness Date Prescriptions: Ketorolac Tromethamine [Toradol 10 mg Tablet] 10 mg PO Q6HP PRN #20 tablet PRN Reason: Referrals: SUDHAKAR GRIFFITH PA-C [Primary Care Provider] - Discharge Diet: Other (Comments) - small bland diets Discharge Activity: No Lifting Over 10 Pounds, No Lifting/Push/Pulling, Walk Frequently Report the Following to Your Physician Immediately: Nausea, Vomiting, Increase in Pain, Fever over 101 Degrees, Unusual Bleeding, Redness, Swelling, Warmth, Drainage-Foul Smelling
--- NOTE | 2017-11-10 10:50 | Operative Report ---
Operative Report DATE OF SURGERY: 11/10/17 PREOPERATIVE DIAGNOSIS: Symptomatic cholelithiasis with cholecystitis POSTOPERATIVE DIAGNOSIS: Same OPERATION: Laparoscopic cholecystectomy SURGEON: JASIEL LUQUE CURB BUILDER: ERIC CARL ANESTHESIA: GA TISSUE REMOVED OR ALTERED: 1 gallbladder with stone COMPLICATIONS: None ESTIMATED BLOOD LOSS: Scant INTRAOPERATIVE FINDINGS: See below PROCEDURE: After obtaining informed consent, the patient was taken to the operating room. General Anesthesia was induced; the arms were extended, and the abdomen was exposed, and prepped and draped in a sterile fashion. Instrumentation was set up for laparoscopic cholecystectomy. Surgical plan and surgical timeout were conducted. A vertical incision was made above the umbilicus, and a verres needle was inserted uneventfully into the peritoneal cavity. Pneumoperitoneum was established. The verres needle was removed and a 5 mm trocar was inserted and a 5 mm flexible laparoscope was inserted. Visualization of the peritoneal cavity confirmed safe uneventful entry. Under direct visualization 3 additional 5 mm ports were established, one in the subxiphoid position and second in the subcostal position. Visualization of the hepatobiliary anatomy revealed no anatomic variations. A grasper was placed on the fundus of the gallbladder and the gallbladder is elevated over the right surface of the liver; a second grasper was used to grasp the infundibulum of the gallbladder. The neck of the gallbladder and junction with the cystic duct was dissected out. The Cystic artery, along with the node of Calot was in its usual location medial and cephalad to the cystic duct. The cystic artery was surrounded with a right angle clamp, clipped twice proximally and divided with laparoscopic scissors. We now opened the triangle of Calot by dividing the peritoneal reflection on both the medial and lateral sides of the cystic duct infundibular junction. The critical view was obtained. We now milked the cystic duct of any possible stones, clipped the cystic duct approximately 2 times once distally and divided with scissors. The gallbladder was now removed from the undersurface of the liver using hook cautery dissection. Graspers were repositioned and the gallbladder was removed uneventfully from the abdominal cavity through the super umbilical port site incision after stretching the fascia to deliver the large gallstone in the gallbladder. The specimen was examined, then passed off to pathology for permanent analysis. We returned to the peritoneal cavity check for bleeding, and evidence of bile leak, and there was none. We Confirmed satisfactory placement of clips on cystic duct and cystic artery were secured . At this point we felt the operation was complete. The subcutaneous tissue was then anesthetized with quarter percent Marcaine Sponge and needle counts are correct. All ports removed under direct visualization pneumoperitoneum evacuated, and 5 mm port wounds closed with 3-0 Vicryl suture, and the supraumbilical fascial defect was closed with 0 Vicryl times 2 and 3-0 Vicryl, benzoin and Steri-Strips. The patient was extubated, and taken to the recovery room in stable condition. The physician intellectual property legal assistant, Ms. Rai, provided assistance during this case by: Assisting and port insertion, retracting tissue, instillation of local anesthesia and closure of skin incisions.
[2017-11-10] MEDS ORDERED: OXYCODONE-ACETAMINOPHEN 5-325 MG TABLET ONE (11:51)
[2017-11-10 13:51] VITALS: BP 126/79
[2017-11-11] MEDS ORDERED: DIPHENHYDRAMINE HCL 50 MG/ML VIAL ONE (06:43)
== END 2017-11-10 13:05 | disposition home or self-care (01) ==
LOC: OROUT 07:27
PROVIDERS: ATTEND Surgery
DX: K80.10 Calculus of gallbladder with chronic cholecystitis without obstruction (principal); J44.9 Chronic obstructive pulmonary disease, unspecified; F17.210 Nicotine dependence, cigarettes, uncomplicated; I25.2 Old myocardial infarction; Z88.0 Allergy status to penicillin; Z88.8 Allergy status to other drugs, medicaments and biological substances; Z88.1 Allergy status to other antibiotic agents; Z91.040 Latex allergy status; Z79.51 Long term (current) use of inhaled steroids; Z85.42 Personal history of malignant neoplasm of other parts of uterus; Z91.041 Radiographic dye allergy status
CPT/HCPCS: 93005; 36415; 82150; 85027; 81025; 80076; 80048; 88304 ×2; 93010; 47562; J2250; J3490 ×2; J1100; J1885; J3010; J1170; J0330; J2405; J2704; 790

== ENCOUNTER 2017-11-15 23:04 | Emergency (ER) | payer OTHER ==
[2017-11-16] MEDS ORDERED: NORMAL SALINE 1000 ML 1,000 ML IV ONE (03:31)
[2017-11-16] MEDS ORDERED: KETOROLAC TROMETHAMINE INJ/PF 30 MG/1 ML SDV IV ONE (03:31)
--- NOTE | 2017-11-16 03:33 | ER Document Report ---
ED GI/ - General Chief Complaint: Abdominal Pain Stated Complaint: POST SURGICAL PAIN Time Seen by Provider: 11/16/17 03:21 Notes: Patient is a 42-year-old female that comes to the emergency department for chief complaint of abdominal pain and swelling, she also complains of nausea. Patient is status post cholecystectomy by Dr. Vasquez on 11/10/2017, she states that she has been doing well except that she has not been moving her bowels well , she states her bowel movements have consisted of "malt ball candies" (hard and round) for the past 3 days. She denies fever or chills. She is able to eat but states that when she ate this evening she became nauseated and this prompted her to come to the emergency department. TRAVEL OUTSIDE OF THE [place] IN LAST 30 DAYS: No - Related Data Allergies/Adverse Reactions: Cephalosporins Allergy (Severe, Verified 11/10/17 08:04) Throat itching and swelling ciprofloxacin [From Cipro] Allergy (Severe, Verified 11/10/17 08:04) Blistering in mouth and throat ethyl alcohol Allergy (Severe, Verified 11/10/17 08:04) Shortness of Breath, cough, difficulty breathing fluticasone [From Flonase] Allergy (Severe, Verified 11/10/17 08:04) Migraine, nose bleed latex Allergy (Severe, Verified 11/10/17 08:04) RASH Penicillins Allergy (Severe, Verified 11/10/17 08:04) Throat swelling, difficulty breathing cephalexin [From Keflex] Allergy (Verified 11/10/17 08:04) Throat swelling, difficulty breathing pantoprazole [From Protonix] Allergy (Verified 11/10/17 08:04) Lymphedema in face and neck aspirin Adverse Reaction (Verified 11/10/17 08:04) N&V Sulfa (Sulfonamide Antibiotics) Adverse Reaction (Verified 11/10/17 08:04) See Comments IV dye Allergy (Uncoded 11/10/17 08:04) arrhythmia Past Medical History - General Information source: Patient - Social History Smoking Status: Current Every Day Smoker Chew tobacco use (# tins/day): No Frequency of alcohol use: Rare Drug Abuse: None Lives with: Family Family History: Reviewed & Not Pertinent Patient has suicidal ideation: No Patient has homicidal ideation: No - Past Medical History Cardiac Medical History: Reports: Hx Heart Attack - 2009, Hx Hypertension - HX OF Denies: Hx Coronary Artery Disease Pulmonary Medical History: Reports: Hx Asthma, Hx COPD - INHALERS Denies: Hx Bronchitis, Hx Pneumonia Neurological Medical History: Reports: Hx Migraine, Hx Seizures - NO MEDS - LAST 2013 - NOT CURRENT. Denies: Hx Cerebrovascular Accident Renal/ Medical History: Denies: Hx Peritoneal Dialysis Musculoskeletal Medical History: Denies Hx Arthritis Past Surgical History: Reports: Hx Gynecologic Surgery, Hx Hysterectomy, Hx Nose Surgery, Hx Tubal Ligation - Immunizations Hx Diphtheria, Pertussis, Tetanus Vaccination: No Review of Systems - Review of Systems Constitutional: No symptoms reported EENT: No symptoms reported Cardiovascular: No symptoms reported Respiratory: No symptoms reported Gastrointestinal: See HPI Genitourinary: No symptoms reported Female Genitourinary: No symptoms reported Musculoskeletal: No symptoms reported Skin: No symptoms reported Hematologic/Lymphatic: No symptoms reported Neurological/Psychological: No symptoms reported Physical Exam - Vital signs Vitals: Temp Pulse BP Pulse Ox 98.2 F 97 139/83 H 99 11/15/17 23:15 11/15/17 23:15 11/15/17 23:15 11/15/17 23:15 - Notes Notes: GENERAL: Alert, interacts well. No acute distress. HEAD: Normocephalic, atraumatic. EYES: Pupils equal, round, and reactive to light. Extraocular movements intact. ENT: Oral mucosa moist, tongue midline. NECK: Full range of motion. Supple. Trachea midline. LUNGS: Clear to auscultation bilaterally, no wheezes, rales, or rhonchi. No respiratory distress. HEART: Regular rate and rhythm. No murmur ABDOMEN: Soft abdomen, minimal tenderness, no guarding or rigidity, no overt distention. Abdominal wounds in the upper abdomen and at the umbilicus with good healing, no noted tenderness, or induration. Unremarkable otherwise. EXTREMITIES: Moves all 4 extremities spontaneously. No edema, normal radial and dorsalis pedis pulses bilaterally. No cyanosis. BACK: no cervical, thoracic, lumbar midline tenderness. No saddle anesthesia, normal distal neurovascular exam. NEUROLOGICAL: Alert and oriented x3. Normal speech. [cranial nerves II through XII grossly intact]. PSYCH: Normal affect, normal mood. SKIN: Warm, dry, normal turgor. No rashes or lesions noted. Course - Re-evaluation Re-evalutation: Patient is alert and well-appearing. Vital signs unremarkable. Abdominal postop wounds are normal and do not appear infected, abdomen is actually soft and benign. CBC, chemistry unremarkable. Urine indicates infection. Acute abdominal series indicates constipation without any acute findings. Called and spoke with Dr. Vasquez, patient's surgeon, discussed presentation, workup, evaluation. Patient will be treated for urinary tract infection, placed on stool softener, perform close follow-up, and will be given detailed return precautions. Dr. Vasquez voices agreement with this plan. I discussed this in detail with patient, she states satisfaction and agreement. Placed on doxycycline because of her many allergies, culture placed. - Vital Signs Vital signs: Temp Pulse Resp BP Pulse Ox 98 F 67 18 125/84 100 11/16/17 07:12 11/16/17 07:12 11/16/17 07:12 11/16/17 07:12 11/16/17 07:12 - Laboratory Result Diagrams: 11/16/17 03:55 11/16/17 03:55 Laboratory results interpreted by me: 11/16/17 11/16/17 11/16/17 03:55 03:55 03:55 RDW 14.9 H Calcium 10.4 H Direct Bilirubin 0.5 H Urine Blood MODERATE H Ur Leukocyte Esterase LARGE H Discharge - Discharge Clinical Impression: Post-op pain Abdominal pain Qualifiers: Abdominal location: generalized Qualified Code(s): R10.84 - Generalized abdominal pain Condition: Stable Disposition: HOME, SELF-CARE Additional Instructions: Your imaging shows retained stool (constipation), no other concerning a normality. Your laboratory workup is normal except for urinary tract infection. We are starting you on doxycycline antibiotic, also take the Colace stool softener, he can also take [id number] medications such as Metamucil or MiraLAX as a stool softener. I spoke with Dr. Vasquez, surgery flat ironer tonight. Follow-up closely with him in the office. Return if you worsen including vomiting, fever 100.4 or greater, severe abdominal pain or swelling, or any other concerning or worsening symptoms. Prescriptions: Docusate Sodium [Colace 100 mg Capsule] 100 mg PO ASDIR PRN #30 capsule PRN Reason: Doxycycline Hyclate 100 mg PO BID #14 capsule Referrals: SUDHAKAR GRIFFITH PA-C [Primary Care Provider] - Follow up as needed
[2017-11-16] MEDS ORDERED: ONDANSETRON HCL INJ/PF 4 MG/2 ML SDV IV ONE (03:59)
[2017-11-16 04:10] LABS: ABSOLUTE BASOPHILS # (AUTO) 0.1 10^3/uL (0.0-0.2); ABSOLUTE EOSINOPHILS # (AUTO) 0.5 10^3/uL (0.0-0.6); ABSOLUTE LYMPHOCYTES (AUTO) 3.2 10^3/uL (0.5-4.7); ABSOLUTE MONOCYTES (AUTO) 0.7 10^3/uL (0.1-1.4); ABSOLUTE NEUT (AUTO) 5.8 10^3/uL (1.7-8.2); EOSINOPHILS % (AUTO) 5.2 % (0-6); HEMATOCRIT 40.6 % (36.0-47.0); HEMOGLOBIN 13.8 g/dL (12.0-15.5); LYMPHOCYTES % (AUTO) 30.8 % (13-45); MEAN CORPUSCULAR HEMOGLOBIN 30.3 pg (27.0-33.4); MEAN CORPUSCULAR VOLUME 89 fl (80-97); MONOCYTES % (AUTO) 6.6 % (3-13); PLATELET COUNT 280 10^3/uL (150-450); RED BLOOD COUNT 4.56 10^6/uL (3.72-5.28); RED CELL DISTRIBUTION WIDTH 14.9 % (11.5-14.0); SEGMENTED NEUTROPHILS % (AUTO) 56.4 % (42-78); TOTAL CELLS COUNTED % (AUTO) 100 %; WHITE BLOOD COUNT 10.4 10^3/uL (4.0-10.5)
[2017-11-16 04:25] LABS: ALANINE AMINOTRANSFERASE 29 U/L (9-52); ALBUMIN 4.6 g/dL (3.5-5.0); ALKALINE PHOSPHATASE 74 U/L (38-126); ANION GAP 10 (5-19); ASPARTATE AMINO TRANSFERASE 19 U/L (14-36); BILIRUBIN,DIRECT 0.5 mg/dL (0.0-0.4); BILIRUBIN,TOTAL 0.6 mg/dL (0.2-1.3); BLOOD UREA NITROGEN 7 mg/dL (7-20); CALCIUM 10.4 mg/dL (8.4-10.2); CARBON DIOXIDE 26 mmol/L (22-30); CHLORIDE 105 mmol/L (98-107); GLUCOSE 81 mg/dL (75-110); POTASSIUM 4.3 mmol/L (3.6-5.0); SODIUM 140.8 mmol/L (137-145); TOTAL PROTEIN 7.8 g/dL (6.3-8.2)
[2017-11-16 04:57] LABS: APPEARANCE,URINE CLOUDY; BILIRUBIN,URINE NEGATIVE (NEGATIVE); COLOR,URINE YELLOW; GLUCOSE, URINE NEGATIVE (NEGATIVE); KETONES,URINE NEGATIVE (NEGATIVE); LEUKOCYTE ESTERASE,URINE LARGE (NEGATIVE); NITRITE,URINE NEGATIVE (NEGATIVE); PROTEIN,URINE NEGATIVE (NEGATIVE); URINE SPECIFIC GRAVITY 1.011; UROBILINOGEN,URINE NEGATIVE mg/dL (<2.0)
--- NOTE | 2017-11-16 05:40 | RADIOLOGY REPORT (SQ) ---
CLINICAL DATA: 42-year-old female TECHNICAL DATA: Three x-ray images of the chest and abdomen were performed including a PA radiograph of the chest as well as supine and upright views of the abdomen. Comparison: Prior chest x-ray performed on 11/03/2017. FINDINGS: The lungs are well expanded. The cardiac silhouette is within normal limits. There is no focal consolidation, pleural effusion or pneumothorax. The costophrenic sulci are clear. The bowel gas pattern is nonspecific and nonobstructive. There is no evidence of free air or significant air-fluid levels. No pathologic abdominal calcifications are identified. No focal soft tissue abnormalities are seen. There are surgical clips in the right upper quadrant. IMPRESSION: 1. No evidence of acute intrathoracic disease.. 2. Nonspecific nonobstructive bowel gas pattern.
[2017-11-16] MEDS ORDERED: DOXYCYCLINE HYCLATE 100 MG TABLET PO ONE (06:09)
[2017-11-16 07:13] VITALS: BP 125/84
== END 2017-11-16 07:13 | disposition home or self-care (01) ==
LOC: ER 23:04
DX: G89.18 Other acute postprocedural pain (principal); R10.84 Generalized abdominal pain; N39.0 Urinary tract infection, site not specified; R11.0 Nausea; R19.4 Change in bowel habit; F17.200 Nicotine dependence, unspecified, uncomplicated; I10 Essential (primary) hypertension; J44.9 Chronic obstructive pulmonary disease, unspecified; Z90.49 Acquired absence of other specified parts of digestive tract; Z88.1 Allergy status to other antibiotic agents; Z88.8 Allergy status to other drugs, medicaments and biological substances; Z91.040 Latex allergy status; Z88.0 Allergy status to penicillin; Z91.041 Radiographic dye allergy status
CPT/HCPCS: 99284; 96361; 96374; 96375; 36415; 87086; 83690; 85025; 81025; 87088; 80053; 81001; 87186; 74022; J1885; J2405

== ENCOUNTER 2017-11-18 20:48 | Emergency (ER) | payer OTHER ==
[2017-11-18 21:07] VITALS: BP 130/83
[2017-11-18] MEDS ORDERED: PROMETHAZINE HCL 25 MG TABLET PO ONE (21:45)
--- NOTE | 2017-11-18 21:46 | ER Document Report ---
ED Medical Screen (RME) - General Chief Complaint: Chest Pain Stated Complaint: BLOOD PRESSURE ISSUE Time Seen by Provider: 11/18/17 21:44 Notes: 42-year-old female with complaints of abdominal pain, bloating, nausea, belching , and constipation after surgery on 11/10/[address] Vasquez. Seen here by me , diagnosed with urinary tract infection and constipation, has already seen Dr. Vasquez in the office since that time and was continued on current medications , she does report that she is having hard bowel movements, denies vomiting, denies fever, denies chest pain. TRAVEL OUTSIDE OF THE [place] IN LAST 30 DAYS: No - Related Data Allergies/Adverse Reactions: Cephalosporins Allergy (Severe, Verified 11/10/17 08:04) Throat itching and swelling ciprofloxacin [From Cipro] Allergy (Severe, Verified 11/10/17 08:04) Blistering in mouth and throat ethyl alcohol Allergy (Severe, Verified 11/10/17 08:04) Shortness of Breath, cough, difficulty breathing fluticasone [From Flonase] Allergy (Severe, Verified 11/10/17 08:04) Migraine, nose bleed latex Allergy (Severe, Verified 11/10/17 08:04) RASH Penicillins Allergy (Severe, Verified 11/10/17 08:04) Throat swelling, difficulty breathing cephalexin [From Keflex] Allergy (Verified 11/10/17 08:04) Throat swelling, difficulty breathing pantoprazole [From Protonix] Allergy (Verified 11/10/17 08:04) Lymphedema in face and neck aspirin Adverse Reaction (Verified 11/10/17 08:04) N&V Sulfa (Sulfonamide Antibiotics) Adverse Reaction (Verified 11/10/17 08:04) See Comments IV dye Allergy (Uncoded 11/10/17 08:04) arrhythmia Past Medical History - Past Medical History Cardiac Medical History: Reports: Hx Heart Attack - 2009, Hx Hypertension - HX OF Denies: Hx Coronary Artery Disease Pulmonary Medical History: Reports: Hx Asthma, Hx COPD - INHALERS Denies: Hx Bronchitis, Hx Pneumonia Neurological Medical History: Reports: Hx Migraine, Hx Seizures - NO MEDS - LAST 2013 - NOT CURRENT. Denies: Hx Cerebrovascular Accident Renal/ Medical History: Denies: Hx Peritoneal Dialysis Musculoskeltal Medical History: Denies Hx Arthritis Past Surgical History: Reports: Hx Gynecologic Surgery, Hx Hysterectomy, Hx Nose Surgery, Hx Tubal Ligation - Immunizations Hx Diphtheria, Pertussis, Tetanus Vaccination: No History of Influenza Vaccine for 11/2016 - 04/2017 Season: No Physical Exam - Vital signs Vitals: Temp Pulse Resp BP Pulse Ox 98.4 F 93 16 130/83 H 98 11/18/17 21:05 11/18/17 21:05 11/18/17 21:05 11/18/17 21:05 11/18/17 21:05 - Abdominal Tenderness: Tender - Tenderness with wincing in the general upper abdomen, lower abdomen nontender, exam limited by sitting position Course - Vital Signs Vital signs: Temp Pulse Resp BP Pulse Ox 98.4 F 93 16 130/83 H 98 11/18/17 21:05 11/18/17 21:05 11/18/17 21:05 11/18/17 21:05 11/18/17 21:05 Doctor's Discharge - Discharge Referrals: SUDHAKAR GRIFFITH PA-C [Primary Care Provider] - Follow up as needed
[2017-11-18 22:24] LABS: APPEARANCE,URINE CLEAR; BILIRUBIN,URINE NEGATIVE (NEGATIVE); COLOR,URINE STRAW; GLUCOSE, URINE NEGATIVE (NEGATIVE); KETONES,URINE NEGATIVE (NEGATIVE); LEUKOCYTE ESTERASE,URINE MODERATE (NEGATIVE); NITRITE,URINE NEGATIVE (NEGATIVE); PROTEIN,URINE NEGATIVE (NEGATIVE); URINE SPECIFIC GRAVITY 1.002; UROBILINOGEN,URINE NEGATIVE mg/dL (<2.0)
[2017-11-18 22:30] LABS: ABSOLUTE BASOPHILS # (AUTO) 0.1 10^3/uL (0.0-0.2); ABSOLUTE EOSINOPHILS # (AUTO) 0.5 10^3/uL (0.0-0.6); ABSOLUTE LYMPHOCYTES (AUTO) 2.6 10^3/uL (0.5-4.7); ABSOLUTE MONOCYTES (AUTO) 0.6 10^3/uL (0.1-1.4); ABSOLUTE NEUT (AUTO) 5.4 10^3/uL (1.7-8.2); BASOPHILS % (AUTO) 0.9 % (0-2); EOSINOPHILS % (AUTO) 5.2 % (0-6); HEMATOCRIT 36.6 % (36.0-47.0); HEMOGLOBIN 12.5 g/dL (12.0-15.5); LYMPHOCYTES % (AUTO) 28.5 % (13-45); MEAN CORPUSCULAR VOLUME 88 fl (80-97); MONOCYTES % (AUTO) 6.6 % (3-13); PLATELET COUNT 287 10^3/uL (150-450); RED BLOOD COUNT 4.16 10^6/uL (3.72-5.28); RED CELL DISTRIBUTION WIDTH 14.4 % (11.5-14.0); SEGMENTED NEUTROPHILS % (AUTO) 58.8 % (42-78); TOTAL CELLS COUNTED % (AUTO) 100 %; WHITE BLOOD COUNT 9.3 10^3/uL (4.0-10.5)
[2017-11-18 23:01] LABS: ALANINE AMINOTRANSFERASE 21 U/L (9-52); ALBUMIN 4.2 g/dL (3.5-5.0); ALKALINE PHOSPHATASE 74 U/L (38-126); ANION GAP 11 (5-19); ASPARTATE AMINO TRANSFERASE 14 U/L (14-36); BILIRUBIN,DIRECT 0.4 mg/dL (0.0-0.4); BILIRUBIN,TOTAL 0.4 mg/dL (0.2-1.3); BLOOD UREA NITROGEN 4 mg/dL (7-20); CARBON DIOXIDE 21 mmol/L (22-30); CHLORIDE 109 mmol/L (98-107); GLUCOSE 86 mg/dL (75-110); LIPASE 106.8 U/L (23-300); POTASSIUM 4.3 mmol/L (3.6-5.0); SODIUM 140.5 mmol/L (137-145); TOTAL PROTEIN 7.2 g/dL (6.3-8.2)
--- NOTE | 2017-11-18 23:15 | ER Document Report ---
ED General - General Mode of Arrival: Medic Information source: Patient TRAVEL OUTSIDE OF THE [place] IN LAST 30 DAYS: No <ANNAMARIE DE LA ROSA - Last Filed: 11/18/17 23:39> <KRISHNABERE Dirk - Last Filed: 11/19/17 22:01> - General Chief Complaint: Chest Pain Stated Complaint: BLOOD PRESSURE ISSUE Time Seen by Provider: 11/18/17 21:44 Notes: Patient is a 42 year old female with a history of SD presents to the emergency department complaining of multiple symptoms including abdominal pain and bloating, constipation, irregular blood pressure, headache and chest pain. Patient states she had a cholecystectomy performed by Dr. Vasquez on 11/10/2017 and followed up with him today regarding her symptoms. She states she was told to continue her regular medications including Colace, MiraLAX and Toradol. Patient states she discontinued taking Toradol due to the way it was making her feel and took her first dose of Miralax today. She states taking the MiraLAX caused her some chest discomfort, headache and intermittent elevated blood pressure. She states she had 1 bowel movement today and describes her stool as "pellet" like. Patient presented to the emergency department on 11/16/2017 complaining of similar symptoms and was diagnosed with constipation and a UTI and subsequently prescribed Colace and Doxycycline. (ANNAMARIE DE LA ROSA) - Related Data Allergies/Adverse Reactions: Cephalosporins Allergy (Severe, Verified 11/10/17 08:04) Throat itching and swelling ciprofloxacin [From Cipro] Allergy (Severe, Verified 11/10/17 08:04) Blistering in mouth and throat ethyl alcohol Allergy (Severe, Verified 11/10/17 08:04) Shortness of Breath, cough, difficulty breathing fluticasone [From Flonase] Allergy (Severe, Verified 11/10/17 08:04) Migraine, nose bleed latex Allergy (Severe, Verified 11/10/17 08:04) RASH Penicillins Allergy (Severe, Verified 11/10/17 08:04) Throat swelling, difficulty breathing cephalexin [From Keflex] Allergy (Verified 11/10/17 08:04) Throat swelling, difficulty breathing pantoprazole [From Protonix] Allergy (Verified 11/10/17 08:04) Lymphedema in face and neck aspirin Adverse Reaction (Verified 11/10/17 08:04) N&V Sulfa (Sulfonamide Antibiotics) Adverse Reaction (Verified 11/10/17 08:04) See Comments IV dye Allergy (Uncoded 11/10/17 08:04) arrhythmia Past Medical History - General Information source: Patient - Social History Smoking Status: Current Every Day Smoker Frequency of alcohol use: None Family History: Reviewed & Not Pertinent Patient has suicidal ideation: No Patient has homicidal ideation: No - Past Medical History Cardiac Medical History: Reports: Hx Heart Attack - 2010, Hx Hypertension - HX OF Pulmonary Medical History: Reports: Hx Asthma, Hx COPD - INHALERS Neurological Medical History: Reports: Hx Migraine, Hx Seizures - NO MEDS - LAST 2013 - NOT CURRENT Past Surgical History: Reports: Hx Gynecologic Surgery, Hx Hysterectomy, Hx Nose Surgery, Hx Tubal Ligation - Immunizations Hx Diphtheria, Pertussis, Tetanus Vaccination: No <ANNAMARIE DE LA ROSA - Last Filed: 11/18/17 23:39> Review of Systems - Review of Systems Constitutional: No symptoms reported EENT: No symptoms reported Cardiovascular: See HPI, Chest pain Respiratory: No symptoms reported Gastrointestinal: See HPI, Abdominal pain, Constipation Genitourinary: No symptoms reported Female Genitourinary: No symptoms reported Musculoskeletal: No symptoms reported Skin: No symptoms reported Hematologic/Lymphatic: No symptoms reported Neurological/Psychological: See HPI, Headaches -: Yes All other systems reviewed and negative <ANNAMARIE DE LA ROSA - Last Filed: 11/18/17 23:39> Physical Exam <ANNAMARIE DE LA ROSA - Last Filed: 11/18/17 23:39> <BERE KELLER - Last Filed: 11/19/17 22:01> - Vital signs Vitals: Temp Pulse Resp BP Pulse Ox 98.4 F 93 16 130/83 H 98 11/18/17 21:05 11/18/17 21:05 11/18/17 21:05 11/18/17 21:05 11/18/17 21:05 - Notes Notes: GENERAL: Alert, pleasant, interacts well. No acute distress. HEAD: Normocephalic, atraumatic. EYES: Pupils equal, round, and reactive to light. Extraocular movements intact. ENT: Oral mucosa moist, tongue midline. NECK: Full range of motion. Supple. Trachea midline. LUNGS: Clear to auscultation bilaterally, no wheezes, rales, or rhonchi. No respiratory distress. HEART: Regular rate and rhythm. No murmurs, gallops, or rubs. ABDOMEN: Soft, mild diffuse tenderness to palpation. Non-distended. Bowel sounds present in all 4 quadrants. EXTREMITIES: Moves all 4 extremities spontaneously. No cyanosis. NEUROLOGICAL: Alert and oriented x3. Normal speech. PSYCH: Normal affect, normal mood. SKIN: Warm, dry, normal turgor. No rashes or lesions noted. (ANNAMARIE DE LA ROSA) Course - Laboratory Result Diagrams: 11/18/17 20:10 11/18/17 20:10 <ANNAMARIE DE LA ROSA - Last Filed: 11/18/17 23:39> - Laboratory Result Diagrams: 11/18/17 20:10 11/18/17 20:10 <BERE KELLER - Last Filed: 11/19/17 22:01> - Re-evaluation Re-evalutation: 11/18/17 23:45 Patient's labs within normal limits are nonsignificant resting comfortably in the emergency department blood pressure is normalized with no intervention. She states that she was concern for diastolic going to 111. Patient's primary complaint is constipation. She been taking narcotics after her gallbladder surgery She was here 2 days ago for similar complaints and states that she is only had 1 -2 bowel movements that are hard. Discussed continue use Colace and will add glycerin suppositories. Will also provide Reglan for nausea medications as this may help with her constipation as well. Advised to drink 7- 8 glasses of water a day 11/18/17 23:47 11/18/17 23:57 Time of discharge patient states she is allergic to multiple medications stool not provide Reglan prescription at this time due to her concern. (BERE KELLER) - Vital Signs Vital signs: Temp Pulse Resp BP Pulse Ox 97.6 F 93 16 130/83 H 98 11/19/17 00:00 11/18/17 21:05 11/18/17 21:05 11/18/17 21:05 11/18/17 21:05 - Laboratory Laboratory results interpreted by me: 11/18/17 11/18/17 11/18/17 20:10 20:10 21:50 RDW 14.4 H Chloride 109 H Carbon Dioxide 21 L BUN 4 L Ur Leukocyte Esterase MODERATE H Discharge <ANNAMARIE DE LA ROSA - Last Filed: 11/18/17 23:39> <BERE KELLER - Last Filed: 11/19/17 22:01> - Discharge Clinical Impression: Constipation Qualifiers: Constipation type: unspecified constipation type Qualified Code(s): K59.00 - Constipation, unspecified Condition: Good Disposition: HOME, SELF-CARE Instructions: Constipation ([facility]) Prescriptions: Glycerin 1 each RC DAILY PRN #7 supp.rect PRN Reason: Metoclopramide HCl [Reglan 10 mg Tablet] 1 tab PO ASDIR PRN #20 tablet PRN Reason: Referrals: SUDHAKAR GRIFFITH PA-C [Primary Care Provider] - Follow up as needed Scribe Attestation: 11/19/17 22:01 I personally performed the services described in the documentation, reviewed and edited the documentation which was dictated to the scribe in my presence, and it accurately records my words and actions. (BERE KELLER) Scribe Documentation - Scribe Written by Marye:: Mita Palma, 11/18/2017 23:42 acting as scribe for :: Krishna <ANNAMARIE DE LA ROSA - Last Filed: 11/18/17 23:39>
--- NOTE | 2017-11-19 10:13 | EKG REPORT ---
SEVERITY:- BORDERLINE ECG - SINUS RHYTHM ATRIAL PREMATURE COMPLEX BORDERLINE INFERIOR Q WAVES : Confirmed by: Tomasz Mir 19-Nov-2017 10:13:21
== END 2017-11-19 00:33 | disposition home or self-care (01) ==
LOC: ER 20:48
DX: K59.00 Constipation, unspecified (principal); R07.9 Chest pain, unspecified; F17.200 Nicotine dependence, unspecified, uncomplicated; I10 Essential (primary) hypertension; I25.2 Old myocardial infarction; Z90.710 Acquired absence of both cervix and uterus; Z91.040 Latex allergy status; Z88.0 Allergy status to penicillin; Z88.6 Allergy status to analgesic agent; Z88.2 Allergy status to sulfonamides; Z88.3 Allergy status to other anti-infective agents
CPT/HCPCS: 36415; 80053; 81001; 81025; 83690; 85025; 93005; 93010; 99284

== ENCOUNTER 2017-12-05 12:28 | Emergency (ER) | payer SELFPAY ==
[2017-12-05] MEDS ORDERED: DEXAMETHASONE SOD PHOS INJ 10 MG/1 ML VIAL IV ONE (12:48)
[2017-12-05] MEDS ORDERED: DIPHENHYDRAMINE HCL 50 MG/ML VIAL IV ONE (12:49)
--- NOTE | 2017-12-05 12:56 | ER Document Report ---
ED Medical Screen (RME) - General Chief Complaint: Shortness Of Breath Stated Complaint: SHORTNESS OF BREATH,THROAT SWELLING Time Seen by Provider: 12/05/17 12:36 Mode of Arrival: Ambulatory Information source: Patient TRAVEL OUTSIDE OF THE [place] IN LAST 30 DAYS: No - HPI Patient complains to provider of: Throat swelling Onset: Other - 42-year-old woman with a bizarre past medical history significant for goiter hypothyroidism among a myriad of other complaints who presents for evaluation of a sensation of her throat feeling tight. She is followed for her goiters in the outpatient setting and is due to have a visit in the coming days but felt as if her throat became more tight today. Has multiple allergies to many medications. Did not take anything new this morning. - Related Data Allergies/Adverse Reactions: Cephalosporins Allergy (Severe, Verified 11/10/17 08:04) Throat itching and swelling ciprofloxacin [From Cipro] Allergy (Severe, Verified 11/10/17 08:04) Blistering in mouth and throat ethyl alcohol Allergy (Severe, Verified 11/10/17 08:04) Shortness of Breath, cough, difficulty breathing fluticasone [From Flonase] Allergy (Severe, Verified 11/10/17 08:04) Migraine, nose bleed latex Allergy (Severe, Verified 11/10/17 08:04) RASH Penicillins Allergy (Severe, Verified 11/10/17 08:04) Throat swelling, difficulty breathing cephalexin [From Keflex] Allergy (Verified 11/10/17 08:04) Throat swelling, difficulty breathing pantoprazole [From Protonix] Allergy (Verified 11/10/17 08:04) Lymphedema in face and neck aspirin Adverse Reaction (Verified 11/10/17 08:04) N&V Sulfa (Sulfonamide Antibiotics) Adverse Reaction (Verified 11/10/17 08:04) See Comments IV dye Allergy (Uncoded 11/10/17 08:04) arrhythmia Past Medical History - Past Medical History Cardiac Medical History: Reports: Hx Heart Attack - 2010, Hx Hypertension - HX OF Denies: Hx Coronary Artery Disease Pulmonary Medical History: Reports: Hx Asthma, Hx COPD - INHALERS Denies: Hx Bronchitis, Hx Pneumonia Neurological Medical History: Reports: Hx Migraine, Hx Seizures - NO MEDS - LAST 2013 - NOT CURRENT. Denies: Hx Cerebrovascular Accident Renal/ Medical History: Denies: Hx Peritoneal Dialysis Musculoskeltal Medical History: Denies Hx Arthritis Past Surgical History: Reports: Hx Gynecologic Surgery, Hx Hysterectomy, Hx Nose Surgery, Hx Tubal Ligation - Immunizations Hx Diphtheria, Pertussis, Tetanus Vaccination: No History of Influenza Vaccine for 11/2016 - 04/2017 Season: No Physical Exam - Vital signs Vitals: Temp Pulse Resp BP Pulse Ox 98.2 F 86 20 133/83 H 99 12/05/17 12:32 12/05/17 12:32 12/05/17 12:32 12/05/17 12:32 12/05/17 12:32 Course - Re-evaluation Re-evalutation: 42-year-old with a complex and confusing past medical history. Says that her throat feels tight or she does have a history of a goiter. We will administer Decadron for possible throat swelling as well as diphenhydramine. We will obtain an x-ray of the neck. 12/05/17 13:52 I have greeted and performed a rapid initial assessment of this patient. A comprehensive ED assessment and evaluation of the patient, analysis of test results and completion of the medical decision making process will be conducted by additional ED providers - Vital Signs Vital signs: Temp Pulse Resp BP Pulse Ox 98.2 F 86 20 133/83 H 99 12/05/17 12:32 12/05/17 12:32 12/05/17 12:32 12/05/17 12:32 12/05/17 12:32 - Laboratory Result Diagrams: 12/05/17 12:57 12/05/17 12:57 Laboratory results interpreted by me: 12/05/17 12/05/17 12:57 12:57 RDW 14.7 H Chloride 108 H Doctor's Discharge - Discharge Referrals: SUDHAKAR GRIFFITH PA-C [Primary Care Provider] - Follow up as needed
[2017-12-05] MEDS ORDERED: DIPHENHYDRAMINE HCL 50 MG CAPSULE PO ONE (13:12)
[2017-12-05 13:23] LABS: ABSOLUTE BASOPHILS # (AUTO) 0.1 10^3/uL (0.0-0.2); ABSOLUTE EOSINOPHILS # (AUTO) 0.5 10^3/uL (0.0-0.6); ABSOLUTE LYMPHOCYTES (AUTO) 2.3 10^3/uL (0.5-4.7); ABSOLUTE MONOCYTES (AUTO) 0.5 10^3/uL (0.1-1.4); ABSOLUTE NEUT (AUTO) 7.1 10^3/uL (1.7-8.2); BASOPHILS % (AUTO) 0.9 % (0-2); HEMATOCRIT 40.4 % (36.0-47.0); HEMOGLOBIN 13.3 g/dL (12.0-15.5); LYMPHOCYTES % (AUTO) 22.2 % (13-45); MEAN CORPUSCULAR HEMOGLOBIN 29.1 pg (27.0-33.4); MEAN CORPUSCULAR VOLUME 88 fl (80-97); MONOCYTES % (AUTO) 4.4 % (3-13); PLATELET COUNT 257 10^3/uL (150-450); RED BLOOD COUNT 4.59 10^6/uL (3.72-5.28); RED CELL DISTRIBUTION WIDTH 14.7 % (11.5-14.0); SEGMENTED NEUTROPHILS % (AUTO) 67.5 % (42-78); TOTAL CELLS COUNTED % (AUTO) 100 %; WHITE BLOOD COUNT 10.5 10^3/uL (4.0-10.5)
[2017-12-05 13:42] LABS: ALANINE AMINOTRANSFERASE 13 U/L (9-52); ALBUMIN 4.5 g/dL (3.5-5.0); ALKALINE PHOSPHATASE 69 U/L (38-126); ANION GAP 9 (5-19); ASPARTATE AMINO TRANSFERASE 16 U/L (14-36); BILIRUBIN,DIRECT 0.3 mg/dL (0.0-0.4); BILIRUBIN,TOTAL 0.4 mg/dL (0.2-1.3); BLOOD UREA NITROGEN 7 mg/dL (7-20); CARBON DIOXIDE 23 mmol/L (22-30); CHLORIDE 108 mmol/L (98-107); GLUCOSE 91 mg/dL (75-110); POTASSIUM 4.4 mmol/L (3.6-5.0); SODIUM 140.4 mmol/L (137-145); TOTAL PROTEIN 7.6 g/dL (6.3-8.2)
--- NOTE | 2017-12-05 13:47 | ER Document Report ---
ED General - General Chief Complaint: Shortness Of Breath Stated Complaint: SHORTNESS OF BREATH,THROAT SWELLING Time Seen by Provider: 12/05/17 12:36 Mode of Arrival: Ambulatory Information source: Patient, [facility] Records Notes: 42-year-old female with COPD, hypertension, coronary artery disease, migraine headaches, recent diagnosis of thyroid goiter with multiple nodules presents with complaint of difficulty swallowing, shortness of breath that occurred just prior to arrival. TRAVEL OUTSIDE OF THE [place] IN LAST 30 DAYS: No - HPI Onset: Just prior to arrival Onset/Duration: Gradual, Worse Quality of pain: No pain Associated symptoms: Shortness of breath, Sore throat. denies: Chest pain, Nonproductive cough, Productive cough, Fever, Hoarseness, Hurts to breath, Nausea, Vomiting, Sweating Exacerbated by: Denies Relieved by: Denies Similar symptoms previously: No Recently seen / treated by doctor: Yes - Related Data Allergies/Adverse Reactions: Cephalosporins Allergy (Severe, Verified 11/10/17 08:04) Throat itching and swelling ciprofloxacin [From Cipro] Allergy (Severe, Verified 11/10/17 08:04) Blistering in mouth and throat ethyl alcohol Allergy (Severe, Verified 11/10/17 08:04) Shortness of Breath, cough, difficulty breathing fluticasone [From Flonase] Allergy (Severe, Verified 11/10/17 08:04) Migraine, nose bleed latex Allergy (Severe, Verified 11/10/17 08:04) RASH Penicillins Allergy (Severe, Verified 11/10/17 08:04) Throat swelling, difficulty breathing cephalexin [From Keflex] Allergy (Verified 11/10/17 08:04) Throat swelling, difficulty breathing pantoprazole [From Protonix] Allergy (Verified 11/10/17 08:04) Lymphedema in face and neck aspirin Adverse Reaction (Verified 11/10/17 08:04) N&V Sulfa (Sulfonamide Antibiotics) Adverse Reaction (Verified 11/10/17 08:04) See Comments IV dye Allergy (Uncoded 11/10/17 08:04) arrhythmia Past Medical History - General Information source: Patient - Social History Smoking Status: Current Every Day Smoker Cigarette use (# per day): Yes - 10 Smoking Education Provided: Yes - Smoking cessation counseling was provided for 4 minutes at the bedside Frequency of alcohol use: None Drug Abuse: None Lives with: Spouse/Significant other Family History: Reviewed & Not Pertinent Patient has suicidal ideation: No Patient has homicidal ideation: No - Past Medical History Cardiac Medical History: Reports: Hx Heart Attack - 2010, Hx Hypertension - HX OF Denies: Hx Coronary Artery Disease Pulmonary Medical History: Reports: Hx Asthma, Hx COPD - INHALERS Denies: Hx Bronchitis, Hx Pneumonia Neurological Medical History: Reports: Hx Migraine, Hx Seizures - NO MEDS - LAST 2013 - NOT CURRENT. Denies: Hx Cerebrovascular Accident Renal/ Medical History: Denies: Hx Peritoneal Dialysis Musculoskeletal Medical History: Denies Hx Arthritis Past Surgical History: Reports: Hx Gynecologic Surgery, Hx Hysterectomy, Hx Nose Surgery, Hx Tubal Ligation - Immunizations Hx Diphtheria, Pertussis, Tetanus Vaccination: No Review of Systems - Review of Systems Notes: REVIEW OF SYSTEMS: CONSTITUTIONAL : Denies fever, chills, or sweats. Denies recent illness. Denies weight loss, recent hospitalizations. EENT: Denies visual changes, eye pain. Denies oral lesions. CARDIOVASCULAR: Denies chest pain. Denies palpitations. Denies lower extremity edema. RESPIRATORY: Denies cough. wheezing. GASTROINTESTINAL: Denies abdominal pain or distention. Denies nausea, vomiting , or diarrhea. Denies blood in vomitus, stools, or per rectum. Denies black, tarry stools. Denies constipation. GENITOURINARY: Denies difficulty urinating, painful urination, frequency, blood in urine, or vaginal discharge. MUSCULOSKELETAL: Denies back or neck pain or stiffness. Denies joint pain or swelling. SKIN: Denies rash, lesions or sores. HEMATOLOGIC : Denies easy bruising or bleeding. LYMPHATIC: Denies swollen glands. NEUROLOGICAL: Denies confusion or altered mental status. Denies loss of consciousness. Denies dizziness or lightheadedness. Denies headache. Denies weakness or paralysis. Denies problems difficulty with ambulation, slurred speech. Denies sensory loss, numbness, or tingling. Denies seizures. PSYCHIATRIC: Denies anxiety or stress. Denies depression, suicidal ideation, or homicidal ideation. Denies visual or auditory hallucinations. Physical Exam - Vital signs Vitals: Temp Pulse Resp BP Pulse Ox 98.2 F 86 20 133/83 H 99 12/05/17 12:32 12/05/17 12:32 12/05/17 12:32 12/05/17 12:32 12/05/17 12:32 - Notes Notes: PHYSICAL EXAMINATION: GENERAL: Well-appearing, well-nourished and in no acute distress. HEAD: Atraumatic, normocephalic. EYES: Pupils equal round and reactive to light, extraocular movements intact, conjunctiva are normal. ENT: Nares patent, oropharynx clear without exudates. Moist mucous membranes. NECK: Normal range of motion, supple without lymphadenopathy enlarged thyroid. No stridor. Airway patent. Handling secretions. LUNGS: Breath sounds clear to auscultation bilaterally and equal. No wheezes rales or rhonchi. HEART: Regular rate and rhythm without murmurs ABDOMEN: Soft, nontender, nondistended abdomen. No guarding, no rebound. No masses appreciated. Female : deferred Musculoskeletal: Normal range of motion, no pitting or edema. No cyanosis. NEUROLOGICAL: Cranial nerves grossly intact. Normal speech, normal gait. Normal sensory, motor exams PSYCH: Normal mood, normal affect. SKIN: Warm, Dry, normal turgor, no rashes or lesions noted. Course - Re-evaluation Re-evalutation: Laboratory 12/05/17 12/05/17 12/05/17 12:57 12:57 12:57 WBC 10.5 RBC 4.59 Hgb 13.3 Hct 40.4 MCV 88 MCH 29.1 MCHC 33.0 RDW 14.7 H Plt Count 257 Seg Neutrophils % 67.5 Lymphocytes % 22.2 Monocytes % 4.4 Eosinophils % 5.0 Basophils % 0.9 Absolute Neutrophils 7.1 Absolute Lymphocytes 2.3 Absolute Monocytes 0.5 Absolute Eosinophils 0.5 Absolute Basophils 0.1 Sodium 140.4 Potassium 4.4 Chloride 108 H Carbon Dioxide 23 Anion Gap 9 BUN 7 Creatinine 0.67 Est GFR ( Amer) > 60 Est GFR (Non-Af Amer) > 60 Glucose 91 Calcium 10.0 Total Bilirubin 0.4 Direct Bilirubin 0.3 Neonat Total Bilirubin Not Reportable Neonat Direct Bilirubin Not Reportable Neonat Indirect Bili Not Reportable AST 16 ALT 13 Alkaline Phosphatase 69 Total Protein 7.6 Albumin 4.5 TSH 0.31 L Free T4 0.96 Soft Tissue Neck X-Ray 12/05/17 12:53 IMPRESSION: No radiographic evidence of airway compromise. 12/05/17 14:51 42-year-old female with recent diagnosis of goiter, thyroid nodule presents with sensation of inability to swallow, difficulty breathing. Upon exam patient has normal vital signs. She is tolerating fluids. She did receive Benadryl, dexamethasone and Ativan during her ED course. On reevaluation she is resting comfortably, patient was reassured that she had airway compromise CBC is without leukocytosis or anemia. CMP shows no remarkable electrolyte abnormalities. Normal LFTs. Free T4 within normal limits. TSH is mildly low. Patient is feeling better. She does have an upcoming appointment with her team leader regarding her recently diagnosed goiter with nodules. She does have a scheduled appointment with her surgeon Dr. Vasquez regarding biopsy, possible surgery. Patient is very anxious and has gone through multiple medical challenges recently. Patient was evaluated and treated as appropriate for the patient's presenting symptoms and complaint, with consideration of any critical or life threatening conditions that may be associated with their obtained history and exam as noted above. All results were discussed with patient. Patient provided the opportunity to ask questions, and express concerns. Patient was educated on treatments based on their presumed diagnosis as noted above. At this time we will discharge the patient with return precautions and follow-up recommendations. Verbal discharge instructions given a the bedside. Medication warnings reviewed. Patient is in agreement with this plan and has verbalized understanding of return precautions. After careful consideration I feel that that patient can be safely discharged from the emergency department, they were advised to followup with a primary care physician in 2-3 days. Dictation on this chart was performed using voice recognition software and may result in unintended grammatical, spelling, syntax or errors. 12/05/17 14:52 12/07/17 11:45 12/07/17 11:47 - Vital Signs Vital signs: Temp Pulse Resp BP Pulse Ox 98.0 F 72 16 114/72 96 12/05/17 15:10 12/05/17 15:10 12/05/17 15:10 12/05/17 15:10 12/05/17 15:10 - Laboratory Result Diagrams: 12/05/17 12:57 12/05/17 12:57 Laboratory results interpreted by me: 12/05/17 12/05/17 12/05/17 12:57 12:57 12:57 RDW 14.7 H Chloride 108 H TSH 0.31 L - Diagnostic Test Radiology reviewed: Image reviewed, Reports reviewed Discharge - Discharge Clinical Impression: Thyroid goiter, Anxiety about health, Elevated blood pressure reading, Globus pharyngeus Dysphagia Qualifiers: Dysphagia type: other dysphagia Qualified Code(s): R13.19 - Other dysphagia Condition: Good Disposition: HOME, SELF-CARE Instructions: Anxiety ([facility]), Dysphagia ([facility]) Additional Instructions: Your exam and imaging today did not show any evidence of airway compromise. Please keep your already scheduled appointment with your team leader. Please return to the emergency department with any concerns. Follow up with your [id number] hours for further care or return to the ED IMMEDIATELY if symptoms worsen or you have any concerns. If you cannot afford to follow up with your primary care physician a list of low cost clinics have been provided at the end of your discharge papers as well. Most prescribed medications have multiple side effects. The safest thing to do is when filling your prescription speak to your pharmacist regarding possible interactions with your normal home medications and over the counter medications such as Ibuprofen, Tylenol, Benadryl. If you experience any symptoms that cause you discomfort or concern you should discontinue the medication immediately and return to the emergency room or call your primary care physician. Prescriptions: Hydroxyzine Pamoate [Vistaril 25 mg Capsule] 25 mg PO Q8H #15 capsule Referrals: SUDHAKAR GRIFFITH PA-C [Primary Care Provider] - Follow up as needed
--- NOTE | 2017-12-05 13:47 | RADIOLOGY REPORT (SQ) ---
EXAM DESCRIPTION: SOFT TISSUE NECK COMPLETED DATE/TIME: 12/05/2017 1:29 pm REASON FOR STUDY: concern for narrowing from goiter COMPARISON: CT neck soft tissue 09/04/2017 NUMBER OF VIEWS: Two views. TECHNIQUE: AP and lateral radiographic image of the soft tissues of the neck. LIMITATIONS: None. FINDINGS: EPIGLOTTIS: Normal. Contour normal. Aryepiglottic folds normal. PREVERTEBRAL SOFT TISSUES: Normal. No soft tissue swelling. SUBGLOTTIC AREA: Normal. No narrowing. RETROPHARYNGEAL SPACE: Normal. No soft tissue masses. BONES: Mild degenerative changes are present. LUNG APICES: Normal. OTHER: No radiopaque foreign body. No other significant finding. IMPRESSION: No radiographic evidence of airway compromise. TECHNICAL DOCUMENTATION: JOB ID: [id number] [employer]- All Rights Reserved Reading location - IP/workstation name: [email or web address]
[2017-12-05 14:08] LABS: FREE T4 (FREE THYROXINE) 0.96 ng/dL (0.78-2.19)
[2017-12-05] MEDS ORDERED: LORAZEPAM INJ 2 MG/1 ML VIAL IV ONE (14:13)
[2017-12-05 14:22] LABS: THYROID STIMULATING HORMONE 0.31 uIU/mL (0.47-4.68)
[2017-12-05 15:10] VITALS: BP 114/72
== END 2017-12-05 15:10 | disposition home or self-care (01) ==
LOC: ER 12:28
DX: E04.9 Nontoxic goiter, unspecified (principal); F41.9 Anxiety disorder, unspecified; F45.8 Other somatoform disorders; R06.02 Shortness of breath; J02.9 Acute pharyngitis, unspecified; J44.9 Chronic obstructive pulmonary disease, unspecified; I10 Essential (primary) hypertension; I25.10 Atherosclerotic heart disease of native coronary artery without angina pectoris; R51 Headache; F17.210 Nicotine dependence, cigarettes, uncomplicated
CPT/HCPCS: 99285; 96374; 96375; 36415; 84439; 84443; 85025; 80053; 70360; J2060; J1100

== ENCOUNTER 2017-12-17 21:26 | Emergency (ER) | payer SELFPAY ==
[2017-12-17] MEDS ORDERED: DICYCLOMINE HCL INJ 20 MG/2 ML AMPULE IM ONE (23:45)
[2017-12-17] MEDS ORDERED: NORMAL SALINE 1000 ML 1,000 ML IV ONE (23:51)
--- NOTE | 2017-12-17 23:56 | ER Document Report ---
ED General - General Chief Complaint: Abdominal Pain Stated Complaint: ABDOMINAL PAIN Time Seen by Provider: 12/17/17 23:39 Notes: Patient is a 42-year-old female presents with complaint of abdominal pain. Some nausea. No vomiting. No fevers. Last bowel movement was on 3 PM today and was normal. After the bowel movements start having constant dull ache pain in center abdomen followed by intermittent sharp pains. As well she is brought to the ER. No blood in her stool. She had a cholecystectomy a few weeks ago. The only other abdominal surgery includes tubal ligation. She is allergic to multiple medications including Ibuprofen, multiple antibiotics, and aspirin. She says she is allergic to full dose aspirin but not baby aspirin. She says she is allergic to aspirin but she is allergic to sulfa medications" aspirin is a sulfa medication". She says she has Zofran prescribed to her. She says it makes her constipated so she did not take it again today. She says since her cholecystectomy she has been unable to pass gas even though she has had multiple bowel movements. TRAVEL OUTSIDE OF THE [place] IN LAST 30 DAYS: No - Related Data Allergies/Adverse Reactions: Cephalosporins Allergy (Severe, Verified 12/17/17 23:38) Throat itching and swelling ciprofloxacin [From Cipro] Allergy (Severe, Verified 12/17/17 23:38) Blistering in mouth and throat ethyl alcohol Allergy (Severe, Verified 12/17/17 23:38) Shortness of Breath, cough, difficulty breathing fluticasone [From Flonase] Allergy (Severe, Verified 12/17/17 23:38) Migraine, nose bleed latex Allergy (Severe, Verified 12/17/17 23:38) RASH Penicillins Allergy (Severe, Verified 12/17/17 23:38) Throat swelling, difficulty breathing cephalexin [From Keflex] Allergy (Verified 12/17/17 23:38) Throat swelling, difficulty breathing fluoxetine [From Prozac] Allergy (Verified 12/17/17 23:38) pantoprazole [From Protonix] Allergy (Verified 12/17/17 23:38) Lymphedema in face and neck aspirin Adverse Reaction (Verified 12/17/17 23:38) N&V Sulfa (Sulfonamide Antibiotics) Adverse Reaction (Verified 12/17/17 23:38) See Comments IV dye Allergy (Uncoded 12/17/17 23:38) arrhythmia Past Medical History - Social History Smoking Status: Never Smoker Frequency of alcohol use: None Drug Abuse: None Family History: Reviewed & Not Pertinent - Past Medical History Cardiac Medical History: Reports: Hx Heart Attack - 2010, Hx Hypertension - HX OF Denies: Hx Coronary Artery Disease Pulmonary Medical History: Reports: Hx Asthma, Hx COPD - INHALERS Denies: Hx Bronchitis, Hx Pneumonia Neurological Medical History: Reports: Hx Migraine, Hx Seizures - NO MEDS - LAST 2013 - NOT CURRENT. Denies: Hx Cerebrovascular Accident Renal/ Medical History: Denies: Hx Peritoneal Dialysis Musculoskeletal Medical History: Denies Hx Arthritis Past Surgical History: Reports: Hx Gynecologic Surgery, Hx Hysterectomy, Hx Nose Surgery, Hx Tubal Ligation - Immunizations Hx Diphtheria, Pertussis, Tetanus Vaccination: No Review of Systems - Review of Systems Notes: My Normal Review Basic REVIEW OF SYSTEMS: CONSTITUTIONAL : Denies fever, chills, or sweats. Denies recent illness. EENT: Denies eye, ear, throat, or mouth pain or symptoms. Denies nasal or sinus congestion. RESPIRATORY: Denies cough, cold, or chest congestion. Denies shortness of breath, difficulty breathing, or wheezing. GASTROINTESTINAL: Abdominal pain. GENITOURINARY: Denies difficulty urinating, painful urination, burning, frequency, or blood in urine. FEMALE GENITOURINARY: Denies vaginal bleeding, abnormal or irregular periods. MUSCULOSKELETAL: Denies neck or back pain or joint pain or swelling. SKIN: Denies rash or skin lesions. NEUROLOGICAL: Denies altered mental status or loss of consciousness. Denies headache. Denies weakness or paralysis or loss of use of either side. Denies problems with gait or speech. Denies sensory or motor loss. ALL OTHER SYSTEMS REVIEWED AND NEGATIVE. Physical Exam - Vital signs Vitals: Temp Pulse Resp BP Pulse Ox 98.2 F 112 H 16 135/87 H 98 12/17/17 21:35 12/17/17 21:35 12/17/17 21:35 12/17/17 21:35 12/17/17 21:35 - Notes Notes: General Appearance: Well nourished, alert, cooperative, no acute distress, no obvious discomfort. Vitals: reviewed, See vital signs table. Eyes: PERRL, EOMI, Conjuctiva clear Mouth: No decreasd moisture Lungs: No wheezing, No rales, No rhonci, No accessory muscle use, good air exchange bilaterally. Heart: Normal rate, Regular rythm, No murmur, no rub Abdomen: Normal BS, soft, No rigidity, mild diffuse abdominal tenderness to palpation notes worse over the periumbilical area and left side of the abdomen. Extremities: strength 5/5 in all extremities, good pulses in all extremities, no swelling or tenderness in the extremities, no edema. Skin: warm, dry, appropriate color, no rash Neuro: speech clear, oriented x 3, normal affect, responds appropriately to questions. Course - Re-evaluation Re-evalutation: 12/18/17 06:20 Urinalysis does show evidence of urinary tract infection. I suspect most patient's pain is probably related to her constipation. She has a large stool burden on x-ray. She is has a history of recurrent constipation and says his pain does feel similar to what she had the past. I did talk about MiraLAX with the patient that she does not like taking MiraLAX. She says usually does well fleets enemas and the Colace and therefore she will do this at home. I encouraged her return to ER if she has vomiting, worsening pain, fevers, or feels unwell. She is to follow-up with her doctor this coming week. Patient agrees with plan and will be discharged home. Dictation of this chart was performed using voice recognition software; therefore, there may be some unintended grammatical errors. - Vital Signs Vital signs: Temp Pulse Resp BP Pulse Ox 97.7 F 72 18 123/76 97 12/18/17 02:40 12/18/17 02:40 12/18/17 02:40 12/18/17 02:40 12/18/17 02:40 - Laboratory Result Diagrams: 12/18/17 00:00 12/18/17 00:00 Laboratory results interpreted by me: 12/18/17 12/18/17 12/18/17 00:00 00:00 00:00 WBC 13.2 H RDW 14.6 H Absolute Neutrophils 8.5 H Absolute Eosinophils 0.7 H BUN 5 L Calcium 10.5 H Urine Protein 30 H Urine Blood MODERATE H Ur Leukocyte Esterase LARGE H Discharge - Discharge Clinical Impression: Abdominal pain Qualifiers: Abdominal location: unspecified location Qualified Code(s): R10.9 - Unspecified abdominal pain UTI (urinary tract infection) Qualifiers: Urinary tract infection type: site unspecified Hematuria presence: without hematuria Qualified Code(s): N39.0 - Urinary tract infection, site not specified Condition: Good Disposition: HOME, SELF-CARE Additional Instructions: Please take your Colace and do the fleets enemas at home. Please take the antibiotic as prescribed. Please return to the ER immediately if you develop fevers, vomiting, or worsening pain. Follow up with your doctor on Wednesday for reevaluation. Prescriptions: Docusate Sodium [Colace 100 mg Capsule] 100 mg PO BID #20 capsule Nitrofurantoin Monohyd/M-Cryst [Macrobid 100 mg Capsule] 100 mg PO BID #10 capsule Referrals: SUDHAKAR GRIFFITH PA-C [Primary Care Provider] - 12/20/17
[2017-12-18 00:31] LABS: ABSOLUTE BASOPHILS # (AUTO) 0.1 10^3/uL (0.0-0.2); ABSOLUTE EOSINOPHILS # (AUTO) 0.7 10^3/uL (0.0-0.6); ABSOLUTE LYMPHOCYTES (AUTO) 3.2 10^3/uL (0.5-4.7); ABSOLUTE MONOCYTES (AUTO) 0.8 10^3/uL (0.1-1.4); ABSOLUTE NEUT (AUTO) 8.5 10^3/uL (1.7-8.2); BASOPHILS % (AUTO) 0.6 % (0-2); EOSINOPHILS % (AUTO) 4.9 % (0-6); HEMATOCRIT 40.3 % (36.0-47.0); HEMOGLOBIN 13.9 g/dL (12.0-15.5); LYMPHOCYTES % (AUTO) 24.2 % (13-45); MEAN CORPUSCULAR HEMOGLOBIN 30.4 pg (27.0-33.4); MEAN CORPUSCULAR HGB CONC 34.4 g/dL (32.0-36.0); MEAN CORPUSCULAR VOLUME 88 fl (80-97); MONOCYTES % (AUTO) 6.3 % (3-13); PLATELET COUNT 269 10^3/uL (150-450); RED BLOOD COUNT 4.57 10^6/uL (3.72-5.28); RED CELL DISTRIBUTION WIDTH 14.6 % (11.5-14.0); TOTAL CELLS COUNTED % (AUTO) 100 %; WHITE BLOOD COUNT 13.2 10^3/uL (4.0-10.5)
[2017-12-18 01:03] LABS: APPEARANCE,URINE SLIGHTLY-CLOUDY; BILIRUBIN,URINE NEGATIVE (NEGATIVE); COLOR,URINE STRAW; GLUCOSE, URINE NEGATIVE (NEGATIVE); KETONES,URINE NEGATIVE (NEGATIVE); LEUKOCYTE ESTERASE,URINE LARGE (NEGATIVE); NITRITE,URINE NEGATIVE (NEGATIVE); PROTEIN,URINE 30 mg/dL (NEGATIVE); URINE SPECIFIC GRAVITY 1.004; UROBILINOGEN,URINE NEGATIVE mg/dL (<2.0)
--- NOTE | 2017-12-18 01:25 | RADIOLOGY REPORT (SQ) ---
EXAM DESCRIPTION: XR ABDOMEN SUPINE AND ERECT WITH CHEST (ABD ACUTE SERIES) COMPLETED DATE/TME: 12/17/2017 23:49 CLINICAL HISTORY: 42 years, Female, abdominal pain COMPARISON: None. NUMBER OF VIEWS: 3 TECHNIQUE: Upright chest with supine and erect views of the abdomen LIMITATIONS: None. FINDINGS: The heart size is normal. Lungs are clear. No pneumothorax. No free air under the hemidiaphragms. The bowel gas pattern is nonspecific. Abundant stool in the colon. No free air. IMPRESSION: Negative chest. Abundant stool in the colon 2010 [employer]- All Rights Reserved
[2017-12-18 01:31] LABS: ALANINE AMINOTRANSFERASE 16 U/L (9-52); ALBUMIN 4.5 g/dL (3.5-5.0); ALKALINE PHOSPHATASE 84 U/L (38-126); ANION GAP 13 (5-19); ASPARTATE AMINO TRANSFERASE 24 U/L (14-36); BILIRUBIN,DIRECT 0.1 mg/dL (0.0-0.4); BILIRUBIN,TOTAL 0.5 mg/dL (0.2-1.3); BLOOD UREA NITROGEN 5 mg/dL (7-20); CALCIUM 10.5 mg/dL (8.4-10.2); CARBON DIOXIDE 27 mmol/L (22-30); CHLORIDE 102 mmol/L (98-107); GLUCOSE 96 mg/dL (75-110); POTASSIUM 3.9 mmol/L (3.6-5.0); SODIUM 141.6 mmol/L (137-145); TOTAL PROTEIN 7.9 g/dL (6.3-8.2)
[2017-12-18] MEDS ORDERED: NITROFURANTOIN MONOHYD/M-CRYST 100 MG CAPSULE PO ONE (02:17)
[2017-12-18 02:41] VITALS: BP 123/76
== END 2017-12-18 02:39 | disposition home or self-care (01) ==
LOC: ER 21:26
DX: N39.0 Urinary tract infection, site not specified (principal); R10.9 Unspecified abdominal pain; R11.0 Nausea; I10 Essential (primary) hypertension; J44.9 Chronic obstructive pulmonary disease, unspecified
CPT/HCPCS: 99284; 96372; 96360; 96361; 36415; 83690; 84703; 85025; 80053; 81001; 74022; J0500; J7030; J8499

== ENCOUNTER 2017-12-21 17:18 | Emergency (ER) | payer OTHER ==
--- NOTE | 2017-12-21 17:52 | ER Document Report ---
ED Medical Screen (RME) - General Chief Complaint: Breathing Difficulty Stated Complaint: CHEST TIGHTNESS,NAUSEA Time Seen by Provider: 12/21/17 17:44 Mode of Arrival: Ambulatory Information source: Patient Notes: 42-year-old female presents emergency department with complaints of chest pain and shortness of breath. She states that her symptoms started today. She describes her chest pain as a tight sensation across the anterior chest. She denies any alleviating or exacerbating factors. It has been constant since this morning. Patient states that she is also feeling shortness of breath. She states that she did have some wheezing earlier. Patient denies any history of DVT, PE. Patient states that she does have bilateral calf swelling and pain. Patient states that she had her gallbladder removed in October. Patient has had fever, chills, rhinorrhea, dry cough. I have greeted and performed a rapid initial assessment of this patient. A comprehensive ED assessment and evaluation of the patient, analysis of test results and completion of the medical decision making process will be conducted by additional ED providers. PHYSICAL EXAMINATION: GENERAL: Well-appearing, well-nourished and in no acute distress. HEAD: Atraumatic, normocephalic. EYES: Pupils equal round extraocular movements intact, conjunctiva are normal. ENT: Nares patent NECK: Normal range of motion LUNGS: No respiratory distress Musculoskeletal: Normal range of motion NEUROLOGICAL: Normal speech, normal gait. PSYCH: Normal mood, normal affect. SKIN: Warm, Dry, normal turgor, no rashes or lesions noted. TRAVEL OUTSIDE OF THE [place] IN LAST 30 DAYS: No - Related Data Allergies/Adverse Reactions: Cephalosporins Allergy (Severe, Verified 12/17/17 23:38) Throat itching and swelling ciprofloxacin [From Cipro] Allergy (Severe, Verified 12/17/17 23:38) Blistering in mouth and throat ethyl alcohol Allergy (Severe, Verified 12/17/17 23:38) Shortness of Breath, cough, difficulty breathing fluticasone [From Flonase] Allergy (Severe, Verified 12/17/17 23:38) Migraine, nose bleed latex Allergy (Severe, Verified 12/17/17 23:38) RASH Penicillins Allergy (Severe, Verified 12/17/17 23:38) Throat swelling, difficulty breathing cephalexin [From Keflex] Allergy (Verified 12/17/17 23:38) Throat swelling, difficulty breathing fluoxetine [From Prozac] Allergy (Verified 12/17/17 23:38) pantoprazole [From Protonix] Allergy (Verified 12/17/17 23:38) Lymphedema in face and neck aspirin Adverse Reaction (Verified 12/17/17 23:38) N&V Sulfa (Sulfonamide Antibiotics) Adverse Reaction (Verified 12/17/17 23:38) See Comments IV dye Allergy (Uncoded 12/17/17 23:38) arrhythmia Past Medical History - Past Medical History Cardiac Medical History: Reports: Hx Heart Attack - 2009, Hx Hypertension - HX OF Denies: Hx Coronary Artery Disease Pulmonary Medical History: Reports: Hx Asthma, Hx COPD - INHALERS Denies: Hx Bronchitis, Hx Pneumonia Neurological Medical History: Reports: Hx Migraine, Hx Seizures - NO MEDS - LAST 2013 - NOT CURRENT. Denies: Hx Cerebrovascular Accident Renal/ Medical History: Denies: Hx Peritoneal Dialysis Musculoskeltal Medical History: Denies Hx Arthritis Past Surgical History: Reports: Hx Cholecystectomy, Hx Gynecologic Surgery, Hx Hysterectomy, Hx Nose Surgery, Hx Tubal Ligation - Immunizations Hx Diphtheria, Pertussis, Tetanus Vaccination: No History of Influenza Vaccine for 11/2016 - 04/2017 Season: No Physical Exam - Vital signs Vitals: Temp Pulse Resp BP Pulse Ox 98.5 F 101 H 16 142/87 H 98 12/21/17 17:32 12/21/17 17:32 12/21/17 17:32 12/21/17 17:32 12/21/17 17:32 Course - Vital Signs Vital signs: Temp Pulse Resp BP Pulse Ox 98.5 F 101 H 16 142/87 H 98 12/21/17 17:32 12/21/17 17:32 12/21/17 17:32 12/21/17 17:32 12/21/17 17:32 Doctor's Discharge - Discharge Referrals: SUDHAKAR GRIFFITH PA-C [Primary Care Provider] - Follow up as needed
--- NOTE | 2017-12-21 18:17 | RADIOLOGY REPORT (SQ) ---
EXAM DESCRIPTION: CHEST SINGLE VIEW COMPLETED DATE/TIME: 12/21/2017 6:01 pm REASON FOR STUDY: chest pain COMPARISON: None. EXAM PARAMETERS: NUMBER OF VIEWS: One view. TECHNIQUE: Single frontal radiographic view of the chest acquired. RADIATION DOSE: NA LIMITATIONS: None. FINDINGS: LUNGS AND PLEURA: No opacities, masses or pneumothorax. No pleural effusion. MEDIASTINUM AND HILAR STRUCTURES: No masses. Contour normal. HEART AND VASCULAR STRUCTURES: Heart normal in size. Normal vasculature. BONES: No acute findings. HARDWARE: None in the chest. OTHER: No other significant finding. IMPRESSION: NO ACUTE RADIOGRAPHIC FINDING IN THE CHEST. TECHNICAL DOCUMENTATION: JOB ID: [id number] [employer]- All Rights Reserved Reading location - IP/workstation name: [email or web address]
[2017-12-21 18:38] LABS: ABSOLUTE BASOPHILS # (AUTO) 0.1 10^3/uL (0.0-0.2); ABSOLUTE EOSINOPHILS # (AUTO) 0.8 10^3/uL (0.0-0.6); ABSOLUTE LYMPHOCYTES (AUTO) 1.8 10^3/uL (0.5-4.7); ABSOLUTE MONOCYTES (AUTO) 0.7 10^3/uL (0.1-1.4); ABSOLUTE NEUT (AUTO) 6.6 10^3/uL (1.7-8.2); BASOPHILS % (AUTO) 0.7 % (0-2); EOSINOPHILS % (AUTO) 7.7 % (0-6); HEMATOCRIT 38.9 % (36.0-47.0); HEMOGLOBIN 13.3 g/dL (12.0-15.5); LYMPHOCYTES % (AUTO) 17.7 % (13-45); MEAN CORPUSCULAR HGB CONC 34.3 g/dL (32.0-36.0); MEAN CORPUSCULAR VOLUME 87 fl (80-97); MONOCYTES % (AUTO) 7.3 % (3-13); PLATELET COUNT 292 10^3/uL (150-450); RED BLOOD COUNT 4.45 10^6/uL (3.72-5.28); RED CELL DISTRIBUTION WIDTH 14.5 % (11.5-14.0); SEGMENTED NEUTROPHILS % (AUTO) 66.6 % (42-78); TOTAL CELLS COUNTED % (AUTO) 100 %
[2017-12-21 18:52] LABS: A TYPE INFLUENZA AG NEGATIVE (NEGATIVE); B INFLUENZA AG NEGATIVE (NEGATIVE)
[2017-12-21 18:58] LABS: ALANINE AMINOTRANSFERASE 14 U/L (9-52); ALBUMIN 4.4 g/dL (3.5-5.0); ALKALINE PHOSPHATASE 79 U/L (38-126); ANION GAP 14 (5-19); ASPARTATE AMINO TRANSFERASE 14 U/L (14-36); BILIRUBIN,DIRECT 0.2 mg/dL (0.0-0.4); BILIRUBIN,TOTAL 0.3 mg/dL (0.2-1.3); BLOOD UREA NITROGEN 8 mg/dL (7-20); CALCIUM 11.2 mg/dL (8.4-10.2); CARBON DIOXIDE 27 mmol/L (22-30); CHLORIDE 104 mmol/L (98-107); CREATINE KINASE 31 U/L (30-135); GLUCOSE 94 mg/dL (75-110); SODIUM 144.5 mmol/L (137-145); TOTAL PROTEIN 7.4 g/dL (6.3-8.2)
[2017-12-21 19:11] LABS: CREATINE KINASE MB < 0.22 ng/mL (<4.55); TROPONIN I < 0.012 ng/mL
[2017-12-21] MEDS ORDERED: DEXAMETHASONE 4 MG TABLET PO ONE ×3 (20:06→20:48)
--- NOTE | 2017-12-21 20:39 | RADIOLOGY REPORT (SQ) ---
EXAM DESCRIPTION: SOFT TISSUE NECK COMPLETED DATE/TIME: 12/21/2017 8:25 pm REASON FOR STUDY: sob COMPARISON: None. NUMBER OF VIEWS: Two views. TECHNIQUE: AP and lateral radiographic image of the soft tissues of the neck. LIMITATIONS: None. FINDINGS: EPIGLOTTIS: Normal. Contour normal. Aryepiglottic folds normal. PREVERTEBRAL SOFT TISSUES: Normal. No soft tissue swelling. SUBGLOTTIC AREA: Normal. No narrowing. RETROPHARYNGEAL SPACE: Normal. No soft tissue masses. BONES: No significant findings. LUNG APICES: Normal. OTHER: No radiopaque foreign body. No other significant finding. IMPRESSION: NEGATIVE STUDY OF THE SOFT TISSUES OF THE NECK. TECHNICAL DOCUMENTATION: JOB ID: [id number] [employer]- All Rights Reserved Reading location - IP/workstation name: [email or web address]
--- NOTE | 2017-12-21 23:13 | RADIOLOGY REPORT (SQ) ---
PROCEDURE: Ultrasound of the bilateral lower extremity deep venous system CLINICAL HISTORY and INDICATION: Bilateral calf pain COMPARISON: None. TECHNIQUE: COMPLETED DATE/TME: 12/21/2017 17:51 Spicer scale imaging with duplex interrogation of the bilateral lower extremity venous system was performed and multiple static images were obtained. FINDINGS: Utilizing compression and augmentation, there is no deep venous thrombus in the bilateral common femoral, superficial femoral or popliteal veins. The bilateral profunda femoris, posterior tibial and deep peroneal veins are patent and compressible. . The bilateral greater saphenous vein at the saphenofemoral junction is patent and compressible. There is no visualization of any subcutaneous fluid collections in either lower extremity. There is no visualization of any fluid collections in the right and left popliteal fossa. There is no evidence of reactive or pathological lymphadenopathy in the evaluated bilateral lower extremities. IMPRESSION: No deep venous thrombosis of the right and the left lower extremity. Location of Interpretation: [id number]
--- NOTE | 2017-12-21 23:31 | ER Document Report ---
ED General - General Chief Complaint: Breathing Difficulty Stated Complaint: CHEST TIGHTNESS,NAUSEA Time Seen by Provider: 12/21/17 17:44 Mode of Arrival: Ambulatory Notes: Patient is a 42-year-old female presenting to the emergency department complaining of shortness of breath and chest tightness intermittent for the last couple of days. Patient states she has a history of a thyroid goiter and at times feels as though her throat is very tight. Patient states she suffers from anxiety and feels very anxious about her upcoming visit with endocrinology and the phlebologist this . Patient states she was here a few days ago diagnosed with urinary tract infection and constipation and placed on Macrobid and Colace. Patient states she has been reading online that Macrobid and Tums and Colace together can affect your thyroid which also concerned her. Patient also states she is allergic to multiple medications and wants to make sure that Macrobid is the correct medication she should be taking for her urinary tract infection. Patient is also stating the bilateral lower extremities are "more swollen than normal." Past medical history: Hypothyroid, goiter, constipation Medications: Colace, Toradol, Zofran, Macrobid, [id number] Tums Allergies: IV contrast, penicillin, Keflex, latex, Cipro, erythromycin, pantoprazole Surgical history: Cholecystectomy 11/10/2017 Patient does admit to everyday cigarette smoking, denies illicit drug use, denies EtOH use. TRAVEL OUTSIDE OF THE [place] IN LAST 30 DAYS: No - Related Data Allergies/Adverse Reactions: Cephalosporins Allergy (Severe, Verified 12/17/17 23:38) Throat itching and swelling ciprofloxacin [From Cipro] Allergy (Severe, Verified 12/17/17 23:38) Blistering in mouth and throat ethyl alcohol Allergy (Severe, Verified 12/17/17 23:38) Shortness of Breath, cough, difficulty breathing fluticasone [From Flonase] Allergy (Severe, Verified 12/17/17 23:38) Migraine, nose bleed latex Allergy (Severe, Verified 12/17/17 23:38) RASH Penicillins Allergy (Severe, Verified 12/17/17 23:38) Throat swelling, difficulty breathing cephalexin [From Keflex] Allergy (Verified 12/17/17 23:38) Throat swelling, difficulty breathing fluoxetine [From Prozac] Allergy (Verified 12/17/17 23:38) pantoprazole [From Protonix] Allergy (Verified 12/17/17 23:38) Lymphedema in face and neck aspirin Adverse Reaction (Verified 12/17/17 23:38) N&V Sulfa (Sulfonamide Antibiotics) Adverse Reaction (Verified 12/17/17 23:38) See Comments IV dye Allergy (Uncoded 12/17/17 23:38) arrhythmia Past Medical History - General Information source: Patient - Social History Smoking Status: Current Every Day Smoker Chew tobacco use (# tins/day): No Frequency of alcohol use: None Drug Abuse: None Family History: Reviewed & Not Pertinent Patient has suicidal ideation: No Patient has homicidal ideation: No - Past Medical History Cardiac Medical History: Reports: Hx Heart Attack - 2009, Hx Hypertension - HX OF Denies: Hx Coronary Artery Disease Pulmonary Medical History: Reports: Hx Asthma, Hx COPD - INHALERS Denies: Hx Bronchitis, Hx Pneumonia Neurological Medical History: Reports: Hx Migraine, Hx Seizures - NO MEDS - LAST 2013 - NOT CURRENT. Denies: Hx Cerebrovascular Accident Renal/ Medical History: Denies: Hx Peritoneal Dialysis Musculoskeletal Medical History: Denies Hx Arthritis Past Surgical History: Reports: Hx Cholecystectomy, Hx Gynecologic Surgery, Hx Hysterectomy, Hx Nose Surgery, Hx Tubal Ligation - Immunizations Hx Diphtheria, Pertussis, Tetanus Vaccination: No Physical Exam - Vital signs Vitals: Temp Pulse Resp BP Pulse Ox 98.5 F 101 H 16 142/87 H 98 12/21/17 17:32 12/21/17 17:32 12/21/17 17:32 12/21/17 17:32 12/21/17 17:32 - Notes Notes: GENERAL: Alert, interacts well. No acute distress. HEAD: Normocephalic, atraumatic. EYES: Pupils equal, round, and reactive to light. Extraocular movements intact. ENT: Oral mucosa moist, tongue midline. No lymphadenopathy appreciated. Swelling noted to thyroid region, patient able to swallow and p.o. fluids with no issues. NECK: Full range of motion. Supple. Trachea midline. LUNGS: Clear to auscultation bilaterally, no wheezes, rales, or rhonchi. No respiratory distress. HEART: Regular rate and rhythm. No murmur ABDOMEN: Soft, non-tender. Non-distended. Bowel sounds present in all 4 quadrants. EXTREMITIES: Moves all 4 extremities spontaneously. Minor nonpitting edema bilateral lower extremities, normal radial and dorsalis pedis pulses bilaterally. No cyanosis. BACK: no cervical, thoracic, lumbar midline tenderness. No saddle anesthesia, normal distal neurovascular exam. NEUROLOGICAL: Alert and oriented x3. Normal speech. cranial nerves II through XII grossly intact. PSYCH: Normal affect, normal mood. SKIN: Warm, dry, normal turgor. No rashes or lesions noted. Course - Re-evaluation Re-evalutation: In reviewing past charts patient has been here previously for same complaints. Patient states that when we gave her dexamethasone the swelling in her throat felt better and she stated she overall felt better. Patient is requesting that we give her dexamethasone again this visit. Reviewed urine culture results that show Macrobid is susceptible discussed with the patient need to continue to take antibiotics as prescribed. 12/21/17 23:27 Venous Doppler revealed no signs of DVT. No signs of leukocytosis, no electrolyte abnormalities, repeat troponin negative. After medication administration in the emergency department patient states her throat no longer feels tight. Patient also denies any chest pain or shortness of breath. Patient states she has an appointment with her sales mgr on which she will make sure to keep the appointment. Close return per precautions discussed. 12/21/17 23:30 Patient's current heart rate 75, blood pressure 118/62 SPO2 is 97% room air. - Vital Signs Vital signs: Temp Pulse Resp BP Pulse Ox 98.5 F 101 H 19 118/62 98 12/21/17 17:32 12/21/17 17:32 12/21/17 23:01 12/21/17 23:01 12/21/17 23:01 - Laboratory Result Diagrams: 12/21/17 18:23 12/21/17 18:23 Laboratory results interpreted by me: 12/21/17 12/21/17 18:23 18:23 RDW 14.5 H Eosinophils % 7.7 H Absolute Eosinophils 0.8 H Calcium 11.2 H Discharge - Discharge Clinical Impression: Pain in throat and chest, Anxiety Chest pain Qualifiers: Chest pain type: unspecified Qualified Code(s): R07.9 - Chest pain, unspecified Condition: Stable Disposition: HOME, SELF-CARE Instructions: Anxiety ([facility]), Chest Pain of Unclear Cause ([facility]) Additional Instructions: You have been seen and treated in the emergency department for shortness of breath, anxiety, discomfort in your throat. You should continue to take prescription medications as prescribed. Please do not cancel your appointment with your sales mgr on . Please also follow-up with your primary care provider in the next 24-48 hours. Please return to the emergency room for any other concerning symptoms. Referrals: SUDHAKAR GRIFFITH PA-C [Primary Care Provider] - Follow up as needed
[2017-12-21 23:43] VITALS: BP 118/62
--- NOTE | 2017-12-22 07:55 | EKG REPORT ---
SEVERITY:- BORDERLINE ECG - SINUS RHYTHM BORDERLINE INFERIOR Q WAVES : Confirmed by: Sergio Mueller MD 22-Dec-2017 07:54:05
== END 2017-12-21 23:30 | disposition home or self-care (01) ==
LOC: ER 17:18
DX: R07.9 Chest pain, unspecified (principal); R07.0 Pain in throat; F41.9 Anxiety disorder, unspecified; R06.02 Shortness of breath; Z79.899 Other long term (current) drug therapy; F17.200 Nicotine dependence, unspecified, uncomplicated; I10 Essential (primary) hypertension; J44.9 Chronic obstructive pulmonary disease, unspecified
CPT/HCPCS: 36415; 70360; 71045; 80053; 82550; 82553; 84484; 85025; 87804; 93005; 93010; 93970; 99285

== ENCOUNTER 2018-01-02 20:32 | Emergency (ER) | payer OTHER ==
[2018-01-02 21:23] LABS: ABSOLUTE BASOPHILS # (AUTO) 0.1 10^3/uL (0.0-0.2); ABSOLUTE EOSINOPHILS # (AUTO) 0.6 10^3/uL (0.0-0.6); ABSOLUTE MONOCYTES (AUTO) 0.7 10^3/uL (0.1-1.4); ABSOLUTE NEUT (AUTO) 6.9 10^3/uL (1.7-8.2); BASOPHILS % (AUTO) 0.9 % (0-2); EOSINOPHILS % (AUTO) 4.9 % (0-6); HEMATOCRIT 38.2 % (36.0-47.0); HEMOGLOBIN 12.9 g/dL (12.0-15.5); LYMPHOCYTES % (AUTO) 26.7 % (13-45); MEAN CORPUSCULAR HEMOGLOBIN 29.7 pg (27.0-33.4); MEAN CORPUSCULAR HGB CONC 33.8 g/dL (32.0-36.0); MEAN CORPUSCULAR VOLUME 88 fl (80-97); MONOCYTES % (AUTO) 6.2 % (3-13); PLATELET COUNT 312 10^3/uL (150-450); RED BLOOD COUNT 4.34 10^6/uL (3.72-5.28); RED CELL DISTRIBUTION WIDTH 15.1 % (11.5-14.0); SEGMENTED NEUTROPHILS % (AUTO) 61.3 % (42-78); TOTAL CELLS COUNTED % (AUTO) 100 %; WHITE BLOOD COUNT 11.2 10^3/uL (4.0-10.5)
[2018-01-02 21:33] LABS: ALANINE AMINOTRANSFERASE 18 U/L (9-52); ALBUMIN 4.3 g/dL (3.5-5.0); ALKALINE PHOSPHATASE 78 U/L (38-126); ANION GAP 11 (5-19); ASPARTATE AMINO TRANSFERASE 14 U/L (14-36); BILIRUBIN,DIRECT 0.3 mg/dL (0.0-0.4); BILIRUBIN,TOTAL 0.3 mg/dL (0.2-1.3); BLOOD UREA NITROGEN 11 mg/dL (7-20); CALCIUM 9.6 mg/dL (8.4-10.2); CARBON DIOXIDE 24 mmol/L (22-30); CHLORIDE 107 mmol/L (98-107); CREATINE KINASE 62 U/L (30-135); GLUCOSE 94 mg/dL (75-110); POTASSIUM 4.2 mmol/L (3.6-5.0); SODIUM 142.2 mmol/L (137-145); TOTAL PROTEIN 7.2 g/dL (6.3-8.2)
[2018-01-02 21:46] LABS: CREATINE KINASE MB < 0.22 ng/mL (<4.55); TROPONIN I < 0.012 ng/mL
--- NOTE | 2018-01-02 21:46 | RADIOLOGY REPORT (SQ) ---
EXAM DESCRIPTION: XR CHEST 1 VIEW COMPLETED DATE/TME: 01/02/2018 21:07 CLINICAL HISTORY: 42 years, Female, chest pain COMPARISON: 12/21/2017 NUMBER OF VIEWS: One TECHNIQUE: AP LIMITATIONS: None. FINDINGS: Cardiomediastinal silhouette is within normal limits. No lung consolidate. No pleural effusion. No pneumothorax. No acute osseous finding. IMPRESSION: No acute chest finding. 2010 [employer]- All Rights Reserved
[2018-01-02] MEDS ORDERED: HALOPERIDOL 5 MG TABLET PO ONE (22:03)
[2018-01-02] MEDS ORDERED: DIAZEPAM INJ 10 MG/2 ML DISP.SYRIN IV ONE ×2 (23:03→23:05)
[2018-01-02] MEDS ORDERED: SERTRALINE HCL 50 MG TABLET PO ONE (23:29)
--- NOTE | 2018-01-02 23:37 | ER Document Report ---
ED General - General Chief Complaint: Chest Pain Stated Complaint: CHEST PAIN Time Seen by Provider: 01/02/18 21:16 Notes: Patient is a 42-year old female with a past medical history of depression and anxiety, prior cholecystectomy, who presents with a multitude of concerns. The patient is a very pleasant but difficult historian. During my assessment she relates concerns ranging from throat swelling to chest pain, shortness of breath , asking if we can obtain x-rays of her intestines to ensure that they are normal. She is also stating that she has a known diagnosis of hypothyroidism but is not on any medication for this diagnosis and has had normal thyroid studies as recently as November 2017. Her significant other at the bedside relates that the patient does have significant anxiety. Patient states that she does think about her health almost continuously all day every day and has done so for at least the past several months. She has continue to follow with multiple subspecialists as an outpatient including her primary care doctor and an cone winder. Nothing is necessary to do a different about her symptoms tonight that prompted a visit to the emergency department. Nothing seems to improve or worsen her symptoms. TRAVEL OUTSIDE OF THE [place] IN LAST 30 DAYS: No - Related Data Allergies/Adverse Reactions: Cephalosporins Allergy (Severe, Verified 12/17/17 23:38) Throat itching and swelling ciprofloxacin [From Cipro] Allergy (Severe, Verified 12/17/17 23:38) Blistering in mouth and throat ethyl alcohol Allergy (Severe, Verified 12/17/17 23:38) Shortness of Breath, cough, difficulty breathing fluticasone [From Flonase] Allergy (Severe, Verified 12/17/17 23:38) Migraine, nose bleed latex Allergy (Severe, Verified 12/17/17 23:38) RASH Penicillins Allergy (Severe, Verified 12/17/17 23:38) Throat swelling, difficulty breathing cephalexin [From Keflex] Allergy (Verified 12/17/17 23:38) Throat swelling, difficulty breathing fluoxetine [From Prozac] Allergy (Verified 12/17/17 23:38) pantoprazole [From Protonix] Allergy (Verified 12/17/17 23:38) Lymphedema in face and neck aspirin Adverse Reaction (Verified 12/17/17 23:38) N&V Sulfa (Sulfonamide Antibiotics) Adverse Reaction (Verified 12/17/17 23:38) See Comments IV dye Allergy (Uncoded 12/17/17 23:38) arrhythmia Past Medical History - General Information source: Patient - Social History Smoking Status: Current Every Day Smoker Chew tobacco use (# tins/day): No Frequency of alcohol use: None Drug Abuse: None Lives with: Spouse/Significant other Family History: Reviewed & Not Pertinent Patient has suicidal ideation: No Patient has homicidal ideation: No - Past Medical History Cardiac Medical History: Reports: Hx Heart Attack - 2010, Hx Hypertension - HX OF Denies: Hx Coronary Artery Disease Pulmonary Medical History: Reports: Hx Asthma, Hx COPD - INHALERS Denies: Hx Bronchitis, Hx Pneumonia Neurological Medical History: Reports: Hx Migraine, Hx Seizures - NO MEDS - LAST 2013 - NOT CURRENT. Denies: Hx Cerebrovascular Accident Renal/ Medical History: Denies: Hx Peritoneal Dialysis Musculoskeletal Medical History: Denies Hx Arthritis Past Surgical History: Reports: Hx Cholecystectomy, Hx Gynecologic Surgery, Hx Hysterectomy, Hx Nose Surgery, Hx Tubal Ligation - Immunizations Hx Diphtheria, Pertussis, Tetanus Vaccination: No Review of Systems - Review of Systems Notes: Constitutional: Negative for fever. HENT: Positive for throat tightness Eyes: Negative for visual changes. Cardiovascular: Positive for intermittent chest discomfort Respiratory: Negative for shortness of breath. Gastrointestinal: Positive for nausea Genitourinary: Negative for dysuria. Musculoskeletal: Negative for back pain. Skin: Negative for rash. Neurological: Negative for headaches, weakness or numbness. 10 point ROS negative except as marked above and in HPI. Physical Exam - Vital signs Vitals: Temp Pulse Resp BP Pulse Ox 97.5 F 105 H 20 132/80 H 100 01/02/18 21:09 01/02/18 21:09 01/02/18 21:09 01/02/18 21:09 01/02/18 21:09 Interpretation: Normal - Tachycardia resolved at the time of my assessment Notes: PHYSICAL EXAMINATION: GENERAL: Well-appearing, well-nourished and in no acute distress. HEAD: Atraumatic, normocephalic. EYES: Pupils equal round and reactive to light, extraocular movements intact, sclera anicteric, conjunctiva are normal. ENT: nares patent, oropharynx clear without exudates. Moist mucous membranes. NECK: Normal range of motion, supple without lymphadenopathy LUNGS: Breath sounds clear to auscultation bilaterally and equal. No wheezes rales or rhonchi. HEART: Regular rate and rhythm without murmurs ABDOMEN: Soft, nontender, normoactive bowel sounds. No guarding, no rebound. No masses appreciated. EXTREMITIES: Normal range of motion, no pitting or edema. No cyanosis. NEUROLOGICAL: No focal neurological deficits. Moves all extremities spontaneously and on command. PSYCH: Extremely anxious, tearful SKIN: Warm, Dry, normal turgor, no rashes or lesions noted. Course - Re-evaluation Re-evalutation: 01/02/18 23:29 Patient presents with multiple vague complaints that did not appear to be concerning for any acute life-threatening pathology. Vitals are within normal limits at triage and at time of discharge. Physical examination is unremarkable. Patient has tolerated oral intake without difficulty. Patient was not noted to be in distress at any point during their ER visit. At this time, based on the reassuring evaluation, I do not suspect an acute NM, pulmonary embolus, aortic dissection, acute intra-abdominal pathology, stroke, or sepsis.I have reviewed with the patient at length that she has been to the emergency department 11 times since the end of August for a multitude of physical complaints. She has had her gallbladder removed due to concerns that the gallbladder could related to her symptoms without any improvement. She is now fixated on her thyroid despite having repeatedly normal thyroid studies. She states that she would like to have her thyroid potentially removed and we have reviewed why this would be ill informed decision. I have emphasized to the patient that it appears that many of her symptoms are somatic in nature and require treatment 3 use of antidepressants and anxiolysis. Patient has been agreeable to being started on sertraline and we will give the first dose here as the patient is extremely concerned about having an allergic reaction to this medication. Will discharge with return precautions and follow-up recommendations. Verbal discharge instructions given a the bedside and opportunity for questions given. Medication warnings reviewed. Patient is in agreement with this plan and has verbalized understanding of return precautions and the need for primary care follow-up in the next 24-72 hours. - Vital Signs Vital signs: Temp Pulse Resp BP Pulse Ox 97.5 F 105 H 18 107/63 99 01/02/18 21:09 01/02/18 21:09 01/03/18 00:01 01/03/18 00:01 01/03/18 00:01 - Laboratory Result Diagrams: 01/02/18 21:10 01/02/18 21:10 Laboratory results interpreted by me: 01/02/18 21:10 WBC 11.2 H RDW 15.1 H - Diagnostic Test Radiology reviewed: Image reviewed, Reports reviewed Radiology results interpreted by me: 01/02/18 23:30 Chest x-ray: No acute infiltrate or pneumothorax Discharge - Discharge Clinical Impression: Multiple complaints, Palpitations, Choking sensation Condition: Good Disposition: HOME, SELF-CARE Additional Instructions: Your labs are normal today. Your EKG is likewise normal. Many of your symptoms appear to be related to severe underlying generalized anxiety. Your being started on sertraline 50 mg daily to help control your anxiety. This medication does generally take 6 weeks to take full effect. You may also use hydroxyzine as needed for untreated anxiety. Please return for any additional concerns you may have. Prescriptions: Sertraline HCl [Zoloft 50 mg Tablet] 50 mg PO DAILY #30 tablet Referrals: SUDHAKAR GRIFFITH PA-C [Primary Care Provider] - Follow up as needed
--- NOTE | 2018-01-03 00:42 | EKG REPORT ---
SEVERITY:- ABNORMAL ECG - SINUS RHYTHM FIRST DEGREE AV BLOCK : Confirmed by: Tomasz Mir 03-Jan-2018 00:41:32
[2018-01-03 01:20] VITALS: BP 107/63
== END 2018-01-03 01:22 | disposition home or self-care (01) ==
LOC: ER 20:32
DX: R09.89 Other specified symptoms and signs involving the circulatory and respiratory systems (principal); F41.9 Anxiety disorder, unspecified; R00.2 Palpitations; R07.9 Chest pain, unspecified; R06.02 Shortness of breath; R11.0 Nausea; F17.200 Nicotine dependence, unspecified, uncomplicated; I10 Essential (primary) hypertension; J44.9 Chronic obstructive pulmonary disease, unspecified; Z88.1 Allergy status to other antibiotic agents; Z88.8 Allergy status to other drugs, medicaments and biological substances; Z91.040 Latex allergy status; Z88.0 Allergy status to penicillin; Z91.041 Radiographic dye allergy status; Z90.49 Acquired absence of other specified parts of digestive tract
CPT/HCPCS: 93005; 99285; 96374; 36415; 82553; 82550; 85025; 80053; 84484; 71045; 93010; J3360

== ENCOUNTER → 2018-01-13 | Outpatient (CLI) | payer OTHER ==
--- NOTE | 2018-01-13 20:20 | XCELERA REPORT ---
[address] [address] Transthoracic Echocardiogram Report Name: BERYL JOHNSTON Age: 42 yrs Gender: Female : 1975 Patient Status: Outpatient Patient Location: [facility] Study Date: 01/13/2018 01:28 PM Height: 70 in Weight: 220 lb BSA: 2.2 m2 Reason For Study: TACHYCARDIA Ordering Physician: LEONARDO TAPIA Performed By: Jamie Morton Interpretation Summary Technically suboptimal study. Biplane LVEF not done, and no CHRISSY calculated. No tachycardia during this study, HR avg 78/min. No post nereyda. effusion. AV 3 cusps, No , no AR. Mild mitral annular calcification. No MS, no MR and no MVP, no LA enlargemnet. LVshowed mild concentric LVH (12mm) with subaortic hypertrophy(18mm) with no elev. LVOT gradient. Multiple segmental mild hypokinesis, see pictoral diagrams. LVEF normal but no LVEF calculated. no LV diastolic dysfunction E/E' is normal. No LV enlargement. RH poorly seen, not enlarged. Mild TR but no TR measured to derive RVSP.. MMode/2D Measurements & Calculations RVDd: 2.4 cm LVIDd: 4.1 cm FS: 43.5 % Ao root diam: 2.7 cm IVSd: 0.85 cm LVIDs: 2.3 cm EDV(Teich): 74.9 ml LVPWd: 0.92 cm ESV(Teich): 18.7 ml Ao root area: 5.7 cm2 LA dimension: 3.2 cm EF(Teich): 75.1 % Doppler Measurements & Calculations MV E max marine: MV P1/2t max marine: Ao V2 max: LV V1 max P.4 cm/sec 109.5 cm/sec 122.5 cm/sec 5.1 mmHg MV P1/2t: 50.8 msec Ao max P.0 mmHgLV V1 max: MVA(P1/2t): 4.3 cm2 112.5 cm/sec MV dec slope: 632.1 cm/sec2 MV dec time: 0.18 sec PA V2 max: PI end-d marine: MV P1/2t-pr_phl: 85.4 cm/sec 99.3 cm/sec 50.8 msec PA max P.9 mmHg Left Ventricle The left ventricle is normal in size, thickness and function. There is mild concentric left ventricular hypertrophy. Proximal septal thickening is noted. The left ventricular ejection fraction is normal. Biplane LVEF not done. Doppler measurements suggest normal left ventricular diastolic function. There are regional wall motion abnormalities as specified. There is no thrombus. Right Ventricle The right ventricle is normal in size, thickness and function. Atria The right atrium is normal. The left atrial size is normal. The interatrial septum is intact with no evidence for an atrial septal defect. Mitral Valve The mitral valve is normal in structure and function. There is mild mitral annular calcification. The mitral valve leaflets appear thickened, but open well. There is no evidence of mitral valve prolapse. There is no mitral valve stenosis. There is no mitral regurgitation noted. Aortic Valve The aortic valve is trileaflet. The aortic valve opens well. There is no aortic valvular vegetation. There is no aortic valve stenosis. No aortic regurgitation is present. Tricuspid Valve The tricuspid valve is not well visualized secondary to technical limitations. There is a mild amount of tricuspid regurgitation. Pulmonic Valve The pulmonic valve is not well visualized. There is a trace or physiologic amount of pulmonic regurgitation. Great Vessels The aortic root is normal size. Effusions There is no pericardial effusion. I WMSI = 1.63 % Normal = 38 Segments Size X - Cannot 2 - 4 - 1-2 small Interpret 1 - Normal Hypokinetic 3 - AkineticDyskinetic 3-5 moderate 5 - 6-14 large Aneurysmal 15-16 diffuse : LEONARDO TAPIA > Sergio Mueller
== END ==
LOC: SP 12:50
PROVIDERS: ATTEND Nurse Practitioner Adult Health
DX: R00.0 Tachycardia, unspecified (principal)
CPT/HCPCS: 93306

== ENCOUNTER 2018-01-28 22:15 | Emergency (ER) | payer OTHER ==
[2018-01-28] MEDS ORDERED: LORAZEPAM INJ 2 MG/1 ML VIAL IM ONE (22:59)
[2018-01-28] MEDS ORDERED: LIDOCAINE 2% INJ-PF (20 MG/ML) 10 ML AMPUL NEB ONE (23:00)
[2018-01-28] MEDS ORDERED: DEXAMETHASONE SOD PHOS INJ 10 MG/1 ML VIAL IM ONE (23:00)
--- NOTE | 2018-01-28 23:20 | ER Document Report ---
ED General - General Chief Complaint: Difficulty Swallowing Stated Complaint: THROAT PRESSURE Time Seen by Provider: 01/28/18 22:20 Notes: Patient is a 42-year-old female with history of anxiety, frequent visits for concerns of choking, presents with a sensation of throat swelling and choking. The patient has been evaluated in the emergency department on multiple occasions for this concern and states that it is getting bad again tonight. She describes it as a pressure-like sensation in her throat worsened by breathing or swallowing. Does admit that she is able to swallow but that it intermittently causes her pain to get worse. She does describe it as a pressure like sensation. Nothing seems to improve her symptoms although she notes in the past she has received Ativan dexamethasone which have provided improvement. She has not seen her primary care doctor regarding today's immediate concerns although was recently seen at [facility], diagnosed with strep pharyngitis and treated with a course of antibiotics. Denies any current fever or constitutional symptoms. TRAVEL OUTSIDE OF THE [place] IN LAST 30 DAYS: No - Related Data Allergies/Adverse Reactions: Cephalosporins Allergy (Severe, Verified 01/28/18 22:37) Throat itching and swelling ciprofloxacin [From Cipro] Allergy (Severe, Verified 01/28/18 22:37) Blistering in mouth and throat ethyl alcohol Allergy (Severe, Verified 01/28/18 22:37) Shortness of Breath, cough, difficulty breathing fluticasone [From Flonase] Allergy (Severe, Verified 01/28/18 22:37) Migraine, nose bleed latex Allergy (Severe, Verified 01/28/18 22:37) RASH Penicillins Allergy (Severe, Verified 01/28/18 22:37) Throat swelling, difficulty breathing cephalexin [From Keflex] Allergy (Verified 01/28/18 22:37) Throat swelling, difficulty breathing fluoxetine [From Prozac] Allergy (Verified 01/28/18 22:37) pantoprazole [From Protonix] Allergy (Verified 01/28/18 22:37) Lymphedema in face and neck aspirin Adverse Reaction (Verified 01/28/18 22:37) N&V Sulfa (Sulfonamide Antibiotics) Adverse Reaction (Verified 01/28/18 22:37) See Comments IV dye Allergy (Uncoded 01/28/18 22:37) arrhythmia Past Medical History - General Information source: Patient - Social History Smoking Status: Current Every Day Smoker Frequency of alcohol use: None Drug Abuse: None Lives with: Spouse/Significant other Family History: Reviewed & Not Pertinent Patient has suicidal ideation: No Patient has homicidal ideation: No - Past Medical History Cardiac Medical History: Reports: Hx Heart Attack - 2010, Hx Hypertension - HX OF Denies: Hx Coronary Artery Disease Pulmonary Medical History: Reports: Hx Asthma, Hx COPD - INHALERS Denies: Hx Bronchitis, Hx Pneumonia Neurological Medical History: Reports: Hx Migraine, Hx Seizures - NO MEDS - LAST 2013 - NOT CURRENT. Denies: Hx Cerebrovascular Accident Renal/ Medical History: Denies: Hx Peritoneal Dialysis Musculoskeletal Medical History: Denies Hx Arthritis Past Surgical History: Reports: Hx Cholecystectomy, Hx Gynecologic Surgery, Hx Hysterectomy, Hx Nose Surgery, Hx Tubal Ligation - Immunizations Hx Diphtheria, Pertussis, Tetanus Vaccination: No Review of Systems - Review of Systems Notes: Constitutional: Negative for fever. HENT: Positive for throat tightness Eyes: Negative for visual changes. Cardiovascular: Negative for chest pain. Respiratory: Negative for shortness of breath. Gastrointestinal: Negative for abdominal pain, vomiting or diarrhea. Genitourinary: Negative for dysuria. Musculoskeletal: Negative for back pain. Skin: Negative for rash. Neurological: Negative for headaches, weakness or numbness. 10 point ROS negative except as marked above and in HPI. Physical Exam - Vital signs Vitals: Temp Pulse Resp BP Pulse Ox 98.7 F 102 H 16 135/98 H 99 01/28/18 22:23 01/28/18 22:23 01/28/18 22:23 01/28/18 22:23 01/28/18 22:23 Interpretation: Tachycardic Notes: PHYSICAL EXAMINATION: GENERAL: Appears anxious but in no distress HEAD: Atraumatic, normocephalic. EYES: Pupils equal round and reactive to light, extraocular movements intact, sclera anicteric, conjunctiva are normal. ENT: nares patent, oropharynx clear without exudates. Moist mucous membranes. NECK: Normal range of motion, supple without lymphadenopathy, no stridor LUNGS: Breath sounds clear to auscultation bilaterally and equal. No wheezes rales or rhonchi. HEART: Regular rate and rhythm without murmurs ABDOMEN: Soft, nontender, normoactive bowel sounds. No guarding, no rebound. No masses appreciated. EXTREMITIES: Normal range of motion, no pitting or edema. No cyanosis. NEUROLOGICAL: No focal neurological deficits. Moves all extremities spontaneously and on command. PSYCH: Highly anxious. SKIN: Warm, Dry, normal turgor, no rashes or lesions noted. Course - Re-evaluation Re-evalutation: 01/28/18 23:19 Patient presents with multiple vague complaints that did not appear to be concerning for any acute life-threatening pathology. Vitals are within normal limits at triage and at time of discharge. Physical examination is unremarkable. Patient has tolerated oral intake without difficulty. Patient was not noted to be in distress at any point during their ER visit. The patient appears extremely anxious regarding concern for possible multiple medical conditions. She has had repeated visits to the emergency department for a sensation of throat swelling although I have seen her several times for this as her other providers with consistently documented normal physical examinations as well as multiple normal x-rays and a CT scan of the soft tissue neck. Patient is also been going to other hospitals for this issue, shows me x- ray reports from [facility] in which she had additional soft tissue neck x-rays done within the past 1 week which were also normal. I have advised the patient that I am concerned about continued iatrogenic radiation exposure and we have agreed to avoid repeat images of the neck today given the absence of any stridor, visible swelling of the neck, lymphadenopathy or any true difficulty swallowing. Patient also has no difficulty breathing. Will discharge with return precautions and follow-up recommendations. Verbal discharge instructions given a the bedside and opportunity for questions given. Medication warnings reviewed. Patient is in agreement with this plan and has verbalized understanding of return precautions and the need for primary care follow-up in the next 24-72 hours. - Vital Signs Vital signs: Temp Pulse Resp BP Pulse Ox 98.8 F 68 18 118/68 98 01/29/18 00:04 01/29/18 00:04 01/29/18 00:04 01/29/18 00:04 01/29/18 00:04 Discharge - Discharge Clinical Impression: Chronic throat pain, Anxiety about health, Multiple complaints Dysphagia Qualifiers: Dysphagia type: other dysphagia Qualified Code(s): R13.19 - Other dysphagia Condition: Good Disposition: HOME, SELF-CARE Additional Instructions: Your physical exam is normal. We have chosen to avoid doing additional images of your neck as you have already had several CT scans and xrays which have been normal for this issue. Please follow-up with your general doctor at your earliest ability regarding todays concerns. Return for difficulty breathing, persistent vomiting, passing out, or any other symptoms that are worrisome to you. Referrals: NARINDER BURDICK, EUGENE-C [Primary Care Provider] - Follow up as needed
[2018-01-29 00:05] VITALS: BP 118/68
== END 2018-01-29 00:04 | disposition home or self-care (01) ==
LOC: ER 22:15
DX: G89.29 Other chronic pain (principal); R13.19 Other dysphagia; R07.0 Pain in throat; F41.9 Anxiety disorder, unspecified; Z88.6 Allergy status to analgesic agent; Z88.2 Allergy status to sulfonamides; Z91.041 Radiographic dye allergy status; Z88.3 Allergy status to other anti-infective agents; Z91.040 Latex allergy status; Z88.0 Allergy status to penicillin
CPT/HCPCS: 94640; 99284; 96372; J2060; J3490; J1100

== ENCOUNTER 2018-02-07 22:31 | Emergency (ER) | payer OTHER ==
[2018-02-07] MEDS ORDERED: NORMAL SALINE 1000 ML 1,000 ML IV ONE (23:16)
--- NOTE | 2018-02-07 23:18 | ER Document Report ---
ED General - General Chief Complaint: Palpitations Stated Complaint: HEART PALPITATIONS Time Seen by Provider: 02/07/18 22:49 Notes: Patient is a 42-year-old female with thyroid disease that presents to the emergency department for chief complaint of painful swallowing and palpitations. Patient states that about an hour prior to ED arrival, she went to drink some water, and states that it felt like it did not go all the way down, and she s tarted gagging, and then felt palpitations, and pain in the chest, which she rated as a 4 out of 10 at that time. She is had symptoms like this in the past, where she has palpitations on a daily basis, but they seem to be exacerbated by this episode. 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 She is had more difficulty swallowing over the past few weeks as well. She denies having any pain at this time, states that the palpitations are resolved. She has been able to swallow her saliva without difficulty. She denies having any lightheadedness, dizziness, shortness of breath or difficulty breathing, denies any nausea or vomiting. Past Medical History: Thyroid disease, hypertension Past Surgical History: Hysterectomy, cholecystectomy Social History: Denies current tobacco, alcohol or drug use. Family History: Reviewed and noncontributory for presenting illness Allergies: Reviewed, see documented allergy list. REVIEW OF SYSTEMS: Other than noted above, the 12 point review of systems was reviewed with the patient and were negative, all pertinent findings are included in the HPI. PHYSICAL EXAMINATION: Vital signs reviewed, nursing noted reviewed. GENERAL: Well-appearing, well-nourished and in no acute distress. HEAD: Atraumatic, normocephalic. EYES: Eyes appear normal, extraocular movements intact, sclera anicteric, conjunctiva are normal. ENT: nares patent, oropharynx clear without exudates. Moist mucous membranes. NECK: Normal range of motion, supple without lymphadenopathy, thyromegaly present LUNGS: Breath sounds clear to auscultation bilaterally and equal. No wheezes rales or rhonchi. HEART: Heart rate tachycardic, regular rhythm. ABDOMEN: Soft, nontender, normoactive bowel sounds. No rebound, guarding, or rigidity. No masses appreciated. EXTREMITIES: Nontender, good range of motion, no pitting or edema. NEUROLOGICAL: No focal neurological deficits. Moves all extremities spontaneously Motor and sensory grossly intact on exam. PSYCH: Normal mood, normal affect. SKIN: Warm, Dry, normal turgor, no rashes or lesions noted on exposed skin TRAVEL OUTSIDE OF THE [place] IN LAST 30 DAYS: No - Related Data Allergies/Adverse Reactions: Cephalosporins Allergy (Severe, Verified 01/28/18 22:37) Throat itching and swelling ciprofloxacin [From Cipro] Allergy (Severe, Verified 01/28/18 22:37) Blistering in mouth and throat ethyl alcohol Allergy (Severe, Verified 01/28/18 22:37) Shortness of Breath, cough, difficulty breathing fluticasone [From Flonase] Allergy (Severe, Verified 01/28/18 22:37) Migraine, nose bleed latex Allergy (Severe, Verified 01/28/18 22:37) RASH Penicillins Allergy (Severe, Verified 01/28/18 22:37) Throat swelling, difficulty breathing cephalexin [From Keflex] Allergy (Verified 01/28/18 22:37) Throat swelling, difficulty breathing fluoxetine [From Prozac] Allergy (Verified 01/28/18 22:37) pantoprazole [From Protonix] Allergy (Verified 01/28/18 22:37) Lymphedema in face and neck aspirin Adverse Reaction (Verified 01/28/18 22:37) N&V Sulfa (Sulfonamide Antibiotics) Adverse Reaction (Verified 01/28/18 22:37) See Comments IV dye Allergy (Uncoded 01/28/18 22:37) arrhythmia Past Medical History - Social History Smoking Status: Never Smoker Family History: Reviewed & Not Pertinent - Past Medical History Cardiac Medical History: Reports: Hx Heart Attack - 2009, Hx Hypertension - HX OF Denies: Hx Coronary Artery Disease Pulmonary Medical History: Reports: Hx Asthma, Hx COPD - INHALERS Denies: Hx Bronchitis, Hx Pneumonia Neurological Medical History: Reports: Hx Migraine, Hx Seizures - NO MEDS - LAST 2013 - NOT CURRENT. Denies: Hx Cerebrovascular Accident Renal/ Medical History: Denies: Hx Peritoneal Dialysis Musculoskeletal Medical History: Denies Hx Arthritis Past Surgical History: Reports: Hx Cholecystectomy, Hx Gynecologic Surgery, Hx Hysterectomy, Hx Nose Surgery, Hx Tubal Ligation - Immunizations Hx Diphtheria, Pertussis, Tetanus Vaccination: No Physical Exam - Vital signs Vitals: Resp Pulse Ox 7 L 98 02/07/18 22:47 02/07/18 22:47 Course - Re-evaluation Re-evalutation: Patient seen and examined vital signs reviewed. Laboratory data and imaging were ordered as appropriate for the patient's presenting symptoms and complaint, with consideration of any critical or life threatening conditions that may be associated with their obtained history and exam as noted above. Patient was treated with IV fluids, and given potassium replacement, we did offer a GI cocktail, however patient stated that this would cause an allergic reaction, despite not being listed as an allergy, therefore this was withheld. Results were reviewed when available and demonstrated unremarkable blood work, and CT of the neck demonstrated right-sided thyromegaly and thyroid prominence, without impacting the airway or esophagus The patient was re-evaluated and was improved, heart rate was much improved as well, discussed results with the patient, advised follow-up with surgery, and her delivery and mail sorter, she will likely need a thyroidectomy, to improve the reshma ortega's overall symptoms. Evaluation was most consistent with palpitations, thyromegaly Results were discussed with the patient at this point, after careful consideration I feel that that patient can be discharged from the emergency department, the patient was educated treatments and reasons to return to the emergency department based on their presumed diagnosis as noted above, they were advised to followup with a primary care physician in 2-3 days. Patient was agreeable to plan of care. *Note is created using voice recognition software and may contain spelling, syntax or grammatical errors. Laboratory 02/07/18 02/07/18 02/07/18 23:31 23:31 23:31 WBC 9.4 RBC 4.11 Hgb 12.2 Hct 35.9 L MCV 87 MCH 29.8 MCHC 34.1 RDW 14.3 H Plt Count 266 Seg Neutrophils % 59.3 Lymphocytes % 27.1 Monocytes % 9.1 Eosinophils % 3.5 Basophils % 1.0 Absolute Neutrophils 5.6 Absolute Lymphocytes 2.5 Absolute Monocytes 0.9 Absolute Eosinophils 0.3 Absolute Basophils 0.1 Sodium 139.3 Potassium 3.3 L Chloride 106 Carbon Dioxide 28 Anion Gap 5 BUN 9 Creatinine 0.64 Est GFR ( Amer) > 60 Est GFR (Non-Af Amer) > 60 Glucose 127 H Calcium 9.6 Total Bilirubin 0.3 Direct Bilirubin 0.2 Neonat Total Bilirubin Not Reportable Neonat Direct Bilirubin Not Reportable Neonat Indirect Bili Not Reportable AST 23 ALT 21 Alkaline Phosphatase 59 Troponin I Total Protein 6.7 Albumin 3.8 TSH 0.61 Free T4 1.05 02/07/18 23:31 WBC RBC Hgb Hct MCV MCH MCHC RDW Plt Count Seg Neutrophils % Lymphocytes % Monocytes % Eosinophils % Basophils % Absolute Neutrophils Absolute Lymphocytes Absolute Monocytes Absolute Eosinophils Absolute Basophils Sodium Potassium Chloride Carbon Dioxide Anion Gap BUN Creatinine Est GFR ( Amer) Est GFR (Non-Af Amer) Glucose Calcium Total Bilirubin Direct Bilirubin Neonat Total Bilirubin Neonat Direct Bilirubin Neonat Indirect Bili AST ALT Alkaline Phosphatase Troponin I < 0.012 Total Protein Albumin TSH Free T4 Soft Tissue Neck CT 02/07/18 23:15 IMPRESSION: A somewhat enlarged appearance to the right lobe of the thyroid. Remainder is unremarkable. TECHNICAL DOCUMENTATION: Quality ID # [id number]: Final reports with documentation of one or more dose reduction techniques (e.g., Automated exposure control, adjustment of the mA and/or kV according to patient size, use of iterative reconstruction technique) copyright 2011 [employer]- All Rights Reserved - Vital Signs Vital signs: Temp Pulse Resp BP Pulse Ox 98.1 F 21 H 119/72 99 02/08/18 02:01 02/08/18 02:01 02/08/18 02:01 02/08/18 02:01 - Laboratory Result Diagrams: 02/07/18 23:31 02/07/18 23:31 Laboratory results interpreted by me: 02/07/18 02/07/18 23:31 23:31 Hct 35.9 L RDW 14.3 H Potassium 3.3 L Glucose 127 H - EKG Interpretation by Me Additional EKG results interpreted by me: EKG demonstrates sinus tachycardia with a ventricular rate of 111 bpm, normal axis, QTC 460 ms, no evidence of acute ischemia on this EKG. Discharge - Discharge Clinical Impression: Palpitations, Thyromegaly, Hypokalemia Condition: Stable Disposition: HOME, SELF-CARE Instructions: Palpitations (Irregular or Rapid Heartrate) (OM) Additional Instructions: Please keep your appointment with your delivery and mail sorter, to discuss possible thyroid surgery, to help with your symptoms. Your thyroid is not compressing on your esophagus, or your windpipe, however if you have worsening symptoms, or return, do not hesitate to return to the emergency department. Referrals: NARINDER BURDICK FNP-C [Primary Care Provider] - Follow up in 3-5 days JASIEL GU MD [ACTIVE STAFF] - Follow up in 3-5 days
--- NOTE | 2018-02-07 23:24 | EKG REPORT ---
SEVERITY:- ABNORMAL ECG - SINUS TACHYCARDIA PROBABLE INFERIOR INFARCT, AGE INDETERMINATE : Confirmed by: Tomasz Mir 07-Feb-2018 23:23:04
[2018-02-07 23:47] LABS: ABSOLUTE BASOPHILS # (AUTO) 0.1 10^3/uL (0.0-0.2); ABSOLUTE EOSINOPHILS # (AUTO) 0.3 10^3/uL (0.0-0.6); ABSOLUTE LYMPHOCYTES (AUTO) 2.5 10^3/uL (0.5-4.7); ABSOLUTE MONOCYTES (AUTO) 0.9 10^3/uL (0.1-1.4); ABSOLUTE NEUT (AUTO) 5.6 10^3/uL (1.7-8.2); EOSINOPHILS % (AUTO) 3.5 % (0-6); HEMATOCRIT 35.9 % (36.0-47.0); HEMOGLOBIN 12.2 g/dL (12.0-15.5); LYMPHOCYTES % (AUTO) 27.1 % (13-45); MEAN CORPUSCULAR HEMOGLOBIN 29.8 pg (27.0-33.4); MEAN CORPUSCULAR HGB CONC 34.1 g/dL (32.0-36.0); MEAN CORPUSCULAR VOLUME 87 fl (80-97); MONOCYTES % (AUTO) 9.1 % (3-13); PLATELET COUNT 266 10^3/uL (150-450); RED BLOOD COUNT 4.11 10^6/uL (3.72-5.28); RED CELL DISTRIBUTION WIDTH 14.3 % (11.5-14.0); SEGMENTED NEUTROPHILS % (AUTO) 59.3 % (42-78); TOTAL CELLS COUNTED % (AUTO) 100 %; WHITE BLOOD COUNT 9.4 10^3/uL (4.0-10.5)
[2018-02-07] MEDS ORDERED: LIDOCAINE 2% VISCOUS SOLN 20 ML UDCUP PO ONE (23:58)
[2018-02-07] MEDS ORDERED: MAG HYDROX/AL HYDROX/SIMETH SUSP 30 ML UDCUP PO ONE (23:58)
[2018-02-07] MEDS ORDERED: METOCLOPRAMIDE HCL ORAL SOLN 10 MG/10 ML UDCUP PO ONE (23:58)
[2018-02-08 00:03] LABS: ALANINE AMINOTRANSFERASE 21 U/L (9-52); ALBUMIN 3.8 g/dL (3.5-5.0); ALKALINE PHOSPHATASE 59 U/L (38-126); ANION GAP 5 (5-19); ASPARTATE AMINO TRANSFERASE 23 U/L (14-36); BILIRUBIN,DIRECT 0.2 mg/dL (0.0-0.4); BILIRUBIN,TOTAL 0.3 mg/dL (0.2-1.3); BLOOD UREA NITROGEN 9 mg/dL (7-20); CALCIUM 9.6 mg/dL (8.4-10.2); CARBON DIOXIDE 28 mmol/L (22-30); CHLORIDE 106 mmol/L (98-107); GLUCOSE 127 mg/dL (75-110); POTASSIUM 3.3 mmol/L (3.6-5.0); SODIUM 139.3 mmol/L (137-145); TOTAL PROTEIN 6.7 g/dL (6.3-8.2)
[2018-02-08 00:18] LABS: FREE T4 (FREE THYROXINE) 1.05 ng/dL (0.78-2.19)
[2018-02-08 00:31] LABS: THYROID STIMULATING HORMONE 0.61 uIU/mL (0.47-4.68)
[2018-02-08] MEDS ORDERED: POTASSIUM CHLORIDE 20 MEQ/15 ML UDCUP PO ONE (00:39)
--- NOTE | 2018-02-08 01:48 | RADIOLOGY REPORT (SQ) ---
EXAM DESCRIPTION: CT NECK CHEST WITHOUT IV CONTRAST COMPLETED DATE/TME: 02/07/2018 23:15 CLINICAL HISTORY: 42 years, Female, thyromegaly COMPARISON: 09/04/2017 CT TECHNIQUE: 252 Images stored on PACS. All CT scanners at this facility use dose modulation, iterative reconstruction, and/or weight based dosing when appropriate to reduce radiation dose to as low as reasonably achievable (ALARA). [facility]: Dose Right [facility]: CareDose [facility]: Dose Right [facility]: Teradose 4D [facility]: [employer] LIMITATIONS: None. FINDINGS: Limited evaluation of brain parenchyma is unremarkable. The epiglottis and aryepiglottic folds are normal. The prevertebral soft tissues are normal. The airway is widely patent. A somewhat enlarged appearance to the right lobe of the thyroid is noted. Correlate with thyroid function. Limited evaluation of the lung apices is unremarkable. No evidence for cervical chain adenopathy. The visualized parotid and submandibular glands are grossly unremarkable. IMPRESSION: A somewhat enlarged appearance to the right lobe of the thyroid. Remainder is unremarkable. TECHNICAL DOCUMENTATION: Quality ID # [id number]: Final reports with documentation of one or more dose reduction techniques (e.g., Automated exposure control, adjustment of the mA and/or kV according to patient size, use of iterative reconstruction technique) copyright 2011 [employer]- All Rights Reserved
[2018-02-08 02:10] VITALS: BP 119/72
== END 2018-02-08 02:10 | disposition home or self-care (01) ==
LOC: ER 22:31
DX: E01.0 Iodine-deficiency related diffuse (endemic) goiter (principal); R00.2 Palpitations; I10 Essential (primary) hypertension; E87.6 Hypokalemia; Z88.1 Allergy status to other antibiotic agents; Z88.0 Allergy status to penicillin; Z91.040 Latex allergy status; Z88.8 Allergy status to other drugs, medicaments and biological substances; Z91.048 Other nonmedicinal substance allergy status
CPT/HCPCS: 93005; 99285; 36415; 84439; 84443; 85025; 80053; 84484; 70490; 93010; J7030

== ENCOUNTER 2018-02-16 22:35 | Emergency (ER) | payer OTHER ==
[2018-02-16] MEDS ORDERED: ASPIRIN 81 MG TABLET, CHEWABLE PO ONE (22:40)
[2018-02-16 23:34] LABS: ABSOLUTE BASOPHILS # (AUTO) 0.1 10^3/uL (0.0-0.2); ABSOLUTE EOSINOPHILS # (AUTO) 0.4 10^3/uL (0.0-0.6); ABSOLUTE LYMPHOCYTES (AUTO) 3.3 10^3/uL (0.5-4.7); ABSOLUTE MONOCYTES (AUTO) 0.9 10^3/uL (0.1-1.4); ABSOLUTE NEUT (AUTO) 4.6 10^3/uL (1.7-8.2); BASOPHILS % (AUTO) 0.8 % (0-2); EOSINOPHILS % (AUTO) 3.8 % (0-6); HEMATOCRIT 39.6 % (36.0-47.0); HEMOGLOBIN 13.2 g/dL (12.0-15.5); MEAN CORPUSCULAR HEMOGLOBIN 29.6 pg (27.0-33.4); MEAN CORPUSCULAR HGB CONC 33.3 g/dL (32.0-36.0); MEAN CORPUSCULAR VOLUME 89 fl (80-97); MONOCYTES % (AUTO) 9.2 % (3-13); PLATELET COUNT 254 10^3/uL (150-450); RED BLOOD COUNT 4.45 10^6/uL (3.72-5.28); RED CELL DISTRIBUTION WIDTH 14.1 % (11.5-14.0); SEGMENTED NEUTROPHILS % (AUTO) 50.2 % (42-78); TOTAL CELLS COUNTED % (AUTO) 100 %; WHITE BLOOD COUNT 9.2 10^3/uL (4.0-10.5)
[2018-02-16 23:53] LABS: ALANINE AMINOTRANSFERASE 20 U/L (9-52); ALBUMIN 4.5 g/dL (3.5-5.0); ALKALINE PHOSPHATASE 69 U/L (38-126); ANION GAP 9 (5-19); ASPARTATE AMINO TRANSFERASE 16 U/L (14-36); BILIRUBIN,DIRECT 0.2 mg/dL (0.0-0.4); BILIRUBIN,TOTAL 0.3 mg/dL (0.2-1.3); BLOOD UREA NITROGEN 8 mg/dL (7-20); CARBON DIOXIDE 26 mmol/L (22-30); CHLORIDE 106 mmol/L (98-107); CREATINE KINASE 44 U/L (30-135); GLUCOSE 94 mg/dL (75-110); POTASSIUM 4.3 mmol/L (3.6-5.0); TOTAL PROTEIN 7.2 g/dL (6.3-8.2)
[2018-02-17 00:17] LABS: CREATINE KINASE MB < 0.22 ng/mL (<4.55); TROPONIN I < 0.012 ng/mL
--- NOTE | 2018-02-17 02:42 | ER Document Report ---
ED Cardiac - General Chief Complaint: Palpitations Stated Complaint: CHEST PAIN,HEART PALPITATIONS Time Seen by Provider: 02/17/18 02:41 Mode of Arrival: Ambulatory Information source: Patient, Relative Notes: Patient is a 42-year-old female with a long history of current palpitations who presents with recurrent chest pain and palpitations prior to arrival. Patient denies shortness of breath, no nausea or vomiting, no diaphoresis, no known sick contacts, no cough or congestion. Currently pain has nearly subsided. Patient has an upcoming appointment with cardiology for a Holter monitor placement. TRAVEL OUTSIDE OF THE [place] IN LAST 30 DAYS: No - HPI Patient complains to provider of: Chest pain, Palpitations Was the onset of pain: Sudden Is the pain a: Chronic problem Chest pain location: Substernal Quality of pain: Achy, Dull Chest pain radiation location: None Severity now: Mild Severity at worst: Moderate Pain level currently: 1 Cardiac risk factors: None Positive cardiac history: No Associated symptoms: None Exacerbated by: Denies Relieved by: Nothing Similar symptoms previously: No Recently seen / treated by doctor: No - Related Data Allergies/Adverse Reactions: Cephalosporins Allergy (Severe, Verified 01/28/18 22:37) Throat itching and swelling ciprofloxacin [From Cipro] Allergy (Severe, Verified 01/28/18 22:37) Blistering in mouth and throat ethyl alcohol Allergy (Severe, Verified 01/28/18 22:37) Shortness of Breath, cough, difficulty breathing fluticasone [From Flonase] Allergy (Severe, Verified 01/28/18 22:37) Migraine, nose bleed latex Allergy (Severe, Verified 01/28/18 22:37) RASH Penicillins Allergy (Severe, Verified 01/28/18 22:37) Throat swelling, difficulty breathing cephalexin [From Keflex] Allergy (Verified 01/28/18 22:37) Throat swelling, difficulty breathing fluoxetine [From Prozac] Allergy (Verified 01/28/18 22:37) pantoprazole [From Protonix] Allergy (Verified 01/28/18 22:37) Lymphedema in face and neck aspirin Adverse Reaction (Verified 01/28/18 22:37) N&V Sulfa (Sulfonamide Antibiotics) Adverse Reaction (Verified 01/28/18 22:37) See Comments IV dye Allergy (Uncoded 01/28/18 22:37) arrhythmia Past Medical History - General Information source: Patient, Relative - Social History Smoking Status: Unknown if Ever Smoked Frequency of alcohol use: None Drug Abuse: None Lives with: Family Family History: Reviewed & Not Pertinent Patient has suicidal ideation: No Patient has homicidal ideation: No - Past Medical History Cardiac Medical History: Reports: Hx Heart Attack - 2010, Hx Hypertension - HX OF Denies: Hx Coronary Artery Disease Pulmonary Medical History: Reports: Hx Asthma, Hx COPD - INHALERS Denies: Hx Bronchitis, Hx Pneumonia EENT Medical History: Reports: None Neurological Medical History: Reports: Hx Migraine, Hx Seizures - NO MEDS - LAST 2013 - NOT CURRENT. Denies: Hx Cerebrovascular Accident Endocrine Medical History: Reports: None Renal/ Medical History: Reports: None. Denies: Hx Peritoneal Dialysis Malignancy Medical History: Reports: None GI Medical History: Reports: None Musculoskeletal Medical History: Reports None, Denies Hx Arthritis Skin Medical History: Reports None Psychiatric Medical History: Reports: None Traumatic Medical History: Reports: None Infectious Medical History: Reports: None Past Surgical History: Reports: Hx Cholecystectomy, Hx Gynecologic Surgery, Hx Hysterectomy, Hx Nose Surgery, Hx Tubal Ligation - Immunizations Hx Diphtheria, Pertussis, Tetanus Vaccination: No Review of Systems - Review of Systems Constitutional: No symptoms reported EENT: No symptoms reported Cardiovascular: See HPI, Palpitations Respiratory: No symptoms reported Gastrointestinal: No symptoms reported Genitourinary: No symptoms reported Female Genitourinary: No symptoms reported Musculoskeletal: No symptoms reported Skin: No symptoms reported Hematologic/Lymphatic: No symptoms reported Neurological/Psychological: No symptoms reported Physical Exam - Vital signs Vitals: Temp Pulse Resp BP Pulse Ox 98.6 F 92 18 132/86 H 98 02/16/18 22:54 02/16/18 22:54 02/16/18 22:54 02/16/18 22:54 02/16/18 22:54 Interpretation: Normal - Notes Notes: Well-appearing in no acute distress - General General appearance: Appears well, Alert - HEENT Head: Normocephalic, Atraumatic Eyes: Normal Pupils: PERRL - Respiratory Respiratory status: No respiratory distress Chest status: Tender - Reproducible pain on palpation to the anterior chest wall. No: Ecchymosis Breath sounds: Normal Chest palpation: Normal - Cardiovascular Rhythm: Regular Heart sounds: Normal auscultation Murmur: No - Abdominal Inspection: Normal Distension: No distension Bowel sounds: Normal Tenderness: Nontender Organomegaly: No organomegaly - Rectal Notes: Deferred - Genitourinary Notes: Deferred - Back Back: Normal, Nontender - Extremities General upper extremity: Normal inspection, Nontender, Normal color, Normal ROM, Normal temperature General lower extremity: Normal inspection, Nontender, Normal color, Normal ROM, Normal temperature, Normal weight bearing. No: Keke's sign - Neurological Neuro grossly intact: Yes Cognition: Normal Orientation: AAOx4 [place] Coma Scale Eye Opening: Spontaneous [place] Coma Scale Verbal: Oriented [place] Coma Scale Motor: Obeys Commands [place] Coma Scale Total: 15 Speech: Normal Motor strength normal: LUE, RUE, LLE, RLE Sensory: Normal - Psychological Associated symptoms: Normal affect, Normal mood - Skin Skin Temperature: Warm Skin Moisture: Dry Skin Color: Normal Course - Re-evaluation Re-evalutation: 02/17/18 03:32 Patient appears consistent with noncardiac chest pain. Patient has two negative troponins, no EKG changes, normal chest x-ray, blood work otherwise unremarkable. Patient will be given oral pain medications and will be reassessed for discharge. 02/17/18 03:53 Patient will be discharged home with return precautions and follow-up with cardiology already scheduled. Patient voices both understanding and agreeing with the plan. - Vital Signs Vital signs: Temp Pulse Resp BP Pulse Ox 98.6 F 92 15 121/86 H 99 02/16/18 22:54 02/16/18 22:54 02/17/18 01:41 02/17/18 01:40 02/17/18 01:41 - Laboratory Result Diagrams: 02/16/18 23:15 02/16/18 23:15 Laboratory results interpreted by me: 02/16/18 23:15 RDW 14.1 H - Diagnostic Test Radiology reviewed: Reports reviewed - EKG Interpretation by Mn EKG shows normal: Sinus rhythm Rate: Normal Rhythm: NSR Voltage: No: Increased voltage, Consistant with LVH, Decreased voltage, Throughout, Limb leads Heart block present: No: 1st Degree, Mobitz 1, Mobitz 2, CHB (3rd degree block) When compared to previous EKG there are: No significant change Discharge - Discharge Clinical Impression: Heart palpitations Chest pain Qualifiers: Chest pain type: unspecified Qualified Code(s): R07.9 - Chest pain, unspecified Condition: Good Disposition: HOME, SELF-CARE Instructions: Palpitations (Irregular or Rapid Heartrate) ([facility]) Additional Instructions: Please follow-up with your inspector general as scheduled. Return to the emergency department if you experience worsening pain, difficulty breathing, uncontrollable heart rate, or have any other concerning symptom. Prescriptions: Tramadol HCl [Ultram 50 mg Tablet] 50 mg PO Q6HP PRN #28 tablet PRN Reason: Referrals: ARTI LAMBERT FNP-C [Primary Care Provider] - Follow up as needed Print Language: Azerbaijani
[2018-02-17] MEDS ORDERED: TRAMADOL HCL 50 MG TABLET PO ONE (03:24)
[2018-02-17 04:16] VITALS: BP 102/68
--- NOTE | 2018-02-17 13:40 | EKG REPORT ---
SEVERITY:- NORMAL ECG - SINUS RHYTHM : Confirmed by: Nicole Rodriguez MD 17-Feb-2018 13:39:19
== END 2018-02-17 04:17 | disposition home or self-care (01) ==
LOC: ER 22:35
DX: R00.2 Palpitations (principal); R07.9 Chest pain, unspecified; J44.9 Chronic obstructive pulmonary disease, unspecified
CPT/HCPCS: 36415; 80053; 82550; 82553; 84484; 85025; 93005; 93010; 99285

== ENCOUNTER 2018-02-21 21:26 | Emergency (ER) | payer OTHER ==
[2018-02-21 21:45] VITALS: BP 137/81
--- NOTE | 2018-02-22 07:16 | EKG REPORT ---
SEVERITY:- BORDERLINE ECG - SINUS TACHYCARDIA BORDERLINE INFERIOR Q WAVES : Confirmed by: Sergio Mueller MD 22-Feb-2018 07:15:31
== END 2018-02-21 22:45 | disposition left against medical advice (07) ==
LOC: ER 21:26
DX: Z53.21 Procedure and treatment not carried out due to patient leaving prior to being seen by health care provider (principal)
CPT/HCPCS: 93005; 93010

== ENCOUNTER 2018-02-23 19:22 | Emergency (ER) | payer OTHER ==
--- NOTE | 2018-02-23 19:58 | ER Document Report ---
ED General - General TRAVEL OUTSIDE OF THE [place] IN LAST 30 DAYS: No <CHICHO PAINTING - Last Filed: 02/24/18 06:02> <CARLOS CARRANZA - Last Filed: 02/26/18 08:32> - General Chief Complaint: Palpitations Stated Complaint: HEART PALPITATIONS Time Seen by Provider: 02/23/18 19:41 Notes: Patient is a 42-year-old female that comes to emergency department for chief complaint of palpitations. She states that she gets frequent palpitations, today she seemed slightly worse like she was having them more frequently, she also states that intermittently today she is been having a choking sensation in the sensation like her thyroid nodules are swollen. She has been diagnosed with 2 thyroid nodules reportedly, she states she has a scheduled on the for a preop appointment and then she is to have these removed. She states she was prescribed methimazole but she does not want to take it because she states her thyroid function tests have fluctuated and she is afraid she is hypothyroid at this time and she will have more problems if she takes it. She denies inability to swallow, she denies shortness of breath, she denies pain in her chest. She states she gets a discomfort generally when she gets the choking sensation. These have been going on for weeks. She states her ENT and oncologist told her that she will continue to have these until she gets the thyroid removed. She denies fever chills. Secondarily patient complains of some intermittent upper abdominal pain. Patient smokes, has past medical history of hypertension, hyperthyroidism from the nodules, hysterectomy, cholecystectomy. (CHICHO PAINTING) - Related Data Allergies/Adverse Reactions: Cephalosporins Allergy (Severe, Verified 01/28/18 22:37) Throat itching and swelling ciprofloxacin [From Cipro] Allergy (Severe, Verified 01/28/18 22:37) Blistering in mouth and throat ethyl alcohol Allergy (Severe, Verified 01/28/18 22:37) Shortness of Breath, cough, difficulty breathing fluticasone [From Flonase] Allergy (Severe, Verified 01/28/18 22:37) Migraine, nose bleed latex Allergy (Severe, Verified 01/28/18 22:37) RASH Penicillins Allergy (Severe, Verified 01/28/18 22:37) Throat swelling, difficulty breathing cephalexin [From Keflex] Allergy (Verified 01/28/18 22:37) Throat swelling, difficulty breathing fluoxetine [From Prozac] Allergy (Verified 01/28/18 22:37) pantoprazole [From Protonix] Allergy (Verified 01/28/18 22:37) Lymphedema in face and neck aspirin Adverse Reaction (Verified 01/28/18 22:37) N&V Sulfa (Sulfonamide Antibiotics) Adverse Reaction (Verified 01/28/18 22:37) See Comments IV dye Allergy (Uncoded 01/28/18 22:37) arrhythmia Past Medical History - General Information source: Patient - Social History Smoking Status: Current Some Day Smoker Smoking Education Provided: Yes - <3 min Drug Abuse: None Lives with: Family Family History: Reviewed & Not Pertinent - Past Medical History Cardiac Medical History: Reports: Hx Heart Attack - 2009, Hx Hypertension - HX OF Denies: Hx Coronary Artery Disease Pulmonary Medical History: Reports: Hx Asthma, Hx COPD - INHALERS Denies: Hx Bronchitis, Hx Pneumonia Neurological Medical History: Reports: Hx Migraine, Hx Seizures - NO MEDS - LAST 2013 - NOT CURRENT. Denies: Hx Cerebrovascular Accident Renal/ Medical History: Denies: Hx Peritoneal Dialysis Musculoskeletal Medical History: Denies Hx Arthritis Past Surgical History: Reports: Hx Cholecystectomy, Hx Gynecologic Surgery, Hx Hysterectomy, Hx Nose Surgery, Hx Tubal Ligation - Immunizations Hx Diphtheria, Pertussis, Tetanus Vaccination: No <CHICHO PAINTING - Last Filed: 02/24/18 06:02> Review of Systems - Review of Systems Constitutional: No symptoms reported EENT: See HPI Cardiovascular: See HPI Respiratory: See HPI Gastrointestinal: No symptoms reported Genitourinary: No symptoms reported Female Genitourinary: No symptoms reported Musculoskeletal: No symptoms reported Skin: No symptoms reported Hematologic/Lymphatic: No symptoms reported Neurological/Psychological: No symptoms reported <CHICHO PAINTING - Last Filed: 02/24/18 06:02> Physical Exam <CHICHO PAINTING - Last Filed: 02/24/18 06:02> - Vital signs Vitals: Resp Pulse Ox 11 L 98 02/23/18 19:54 02/23/18 19:54 - Notes Notes: GENERAL: Alert, interacts well. No acute distress. HEAD: Normocephalic, atraumatic. EYES: Pupils equal, round, and reactive to light. Extraocular movements intact. ENT: Oral mucosa moist, tongue midline. Oropharynx unremarkable. Airway patent. Nares patent, no nasal septal hematoma, TM's intact. NECK: Full range of motion. Supple. Trachea midline. There is a noticeable swelling on the right side of the neck consistent with thyroid nodule. LUNGS: Clear to auscultation bilaterally, no wheezes, rales, or rhonchi. No respiratory distress. HEART: Regular rate and rhythm. No murmur ABDOMEN: Soft, non-tender. Non-distended. Bowel sounds present in all 4 quadrants. GENITOURINARY: Deferred EXTREMITIES: Moves all 4 extremities spontaneously. No edema, normal radial and dorsalis pedis pulses bilaterally. No cyanosis. BACK: no cervical, thoracic, lumbar midline tenderness. No saddle anesthesia, normal distal neurovascular exam. NEUROLOGICAL: Alert and oriented x3. Normal speech. [cranial nerves II through XII grossly intact]. PSYCH: Very animated and talkative SKIN: Warm, dry, normal turgor. No rashes or lesions noted. (CHICHO PAINTING) Course - Laboratory Result Diagrams: 02/23/18 20:30 02/23/18 20:30 <CHICHO PAINTING - Last Filed: 02/24/18 06:02> - Laboratory Result Diagrams: 02/23/18 20:30 02/23/18 20:30 <CARLOS CARRANZA - Last Filed: 02/26/18 08:32> - Re-evaluation Re-evalutation: Patient is extremely talkative on evaluation. Patient already has scheduled dates for Holter monitor, scheduled dates for primary care follow-up, and scheduled dates for thyroidectomy. She feels the swelling is worse than previously, however I reviewed her recent scan on 02/07/2018, this shows thyroid nodule only with fully patent airway. Patient has no respiratory distress or respiratory symptoms on my evaluation, has no trouble handling secretions, drinks fluids without any difficulty. Vital signs are unremarkable. On telemetry monitoring I did not observe any concerning arrhythmias. EKG unremarkable. EKG does show borderline Q waves inferiorly and borderline prolonged CT interval, however this is not significantly changed from prior. Normal chest x- ray. Troponin negative despite ongoing symptoms, thyroid panel within normal ranges, CBC and chemistry unremarkable. I discussed with patient. Provided her with a copy of her thyroid panel, and her recent CAT scan imaging. She is very pleased with this. She states that she will follow-up with her provider with these results for additional management, requests discharge. Discussed return precautions with patient and significant other. They state understanding and agreement. (CHICHO PAINTING) - Vital Signs Vital signs: Temp Pulse Resp BP Pulse Ox 98.3 F 11 L 132/86 H 100 02/23/18 22:01 02/23/18 22:01 02/23/18 22:01 02/23/18 22:01 - Laboratory Laboratory results interpreted by me: 02/23/18 02/23/18 20:30 20:30 RDW 14.4 H Chloride 108 H - EKG Interpretation by Me Additional EKG results interpreted by me: EKG showing sinus tachycardia at a rate of 104, borderline prolonged CT interval, borderline inferior Q waves, no ST segment or T wave inversions in consecutive leads. No significant change from prior per my interpretation. (CHICHO PAINTING) Discharge <CHICHO PAINTING - Last Filed: 02/24/18 06:02> <CARLOS CARRANZA - Last Filed: 02/26/18 08:32> - Discharge Clinical Impression: Heart palpitations, Enlargement of thyroid Condition: Stable Disposition: HOME, SELF-CARE Additional Instructions: Take the report of the most recent scan of the soft tissues of your neck and of your most recent thyroid panel to your provider. Continue your follow-up appointments. Return if you worsen including racing heart, passing out, fevers, vomiting, or any other concerning or worsening symptoms. Referrals: ARTI LAMBERT, PALLIATIVE SENIOR NP-C [Primary Care Provider] - Follow up as needed Cosign for MLP Consult
[2018-02-23 20:47] LABS: ABSOLUTE BASOPHILS # (AUTO) 0.1 10^3/uL (0.0-0.2); ABSOLUTE EOSINOPHILS # (AUTO) 0.3 10^3/uL (0.0-0.6); ABSOLUTE LYMPHOCYTES (AUTO) 2.4 10^3/uL (0.5-4.7); ABSOLUTE MONOCYTES (AUTO) 0.7 10^3/uL (0.1-1.4); ABSOLUTE NEUT (AUTO) 5.1 10^3/uL (1.7-8.2); BASOPHILS % (AUTO) 0.7 % (0-2); EOSINOPHILS % (AUTO) 4.1 % (0-6); HEMOGLOBIN 12.9 g/dL (12.0-15.5); LYMPHOCYTES % (AUTO) 27.7 % (13-45); MEAN CORPUSCULAR HEMOGLOBIN 29.4 pg (27.0-33.4); MEAN CORPUSCULAR VOLUME 87 fl (80-97); MONOCYTES % (AUTO) 8.3 % (3-13); PLATELET COUNT 243 10^3/uL (150-450); RED CELL DISTRIBUTION WIDTH 14.4 % (11.5-14.0); SEGMENTED NEUTROPHILS % (AUTO) 59.2 % (42-78); TOTAL CELLS COUNTED % (AUTO) 100 %; WHITE BLOOD COUNT 8.6 10^3/uL (4.0-10.5)
--- NOTE | 2018-02-23 20:58 | RADIOLOGY REPORT (SQ) ---
EXAM DESCRIPTION: CHEST SINGLE VIEW COMPLETED DATE/TIME: 02/23/2018 8:10 pm REASON FOR STUDY: chest/throat discomfort COMPARISON: 2017. NUMBER OF VIEWS: One view. TECHNIQUE: Single frontal radiographic view of the chest acquired. LIMITATIONS: None. FINDINGS: LUNGS AND PLEURA: No opacities, masses or pneumothorax. No pleural effusion. MEDIASTINUM AND HILAR STRUCTURES: No masses. Contour normal. HEART AND VASCULAR STRUCTURES: Heart normal in size. Normal vasculature. BONES: No acute findings. HARDWARE: None in the chest. OTHER: No other significant finding. IMPRESSION: NO SIGNIFICANT RADIOGRAPHIC FINDING IN THE CHEST. TECHNICAL DOCUMENTATION: JOB ID: [id number] [employer]- All Rights Reserved Reading location - IP/workstation name: [email or web address]
[2018-02-23 21:09] LABS: ALANINE AMINOTRANSFERASE 18 U/L (9-52); ALBUMIN 4.2 g/dL (3.5-5.0); ALKALINE PHOSPHATASE 78 U/L (38-126); ANION GAP 6 (5-19); ASPARTATE AMINO TRANSFERASE 15 U/L (14-36); BILIRUBIN,DIRECT 0.2 mg/dL (0.0-0.4); BILIRUBIN,TOTAL 0.2 mg/dL (0.2-1.3); BLOOD UREA NITROGEN 12 mg/dL (7-20); CALCIUM 9.7 mg/dL (8.4-10.2); CARBON DIOXIDE 26 mmol/L (22-30); CHLORIDE 108 mmol/L (98-107); GLUCOSE 91 mg/dL (75-110); LIPASE 142.4 U/L (23-300); POTASSIUM 4.2 mmol/L (3.6-5.0); SODIUM 139.6 mmol/L (137-145); TOTAL PROTEIN 6.7 g/dL (6.3-8.2)
[2018-02-23] MEDS ORDERED: LIDOCAINE 2% VISCOUS SOLN 20 ML UDCUP PO ONE (21:13)
[2018-02-23] MEDS ORDERED: METOCLOPRAMIDE HCL ORAL SOLN 10 MG/10 ML UDCUP PO ONE (21:13)
[2018-02-23] MEDS ORDERED: MAG HYDROX/AL HYDROX/SIMETH SUSP 30 ML UDCUP PO ONE (21:13)
[2018-02-23 21:25] LABS: FREE T4 (FREE THYROXINE) 0.98 ng/dL (0.78-2.19)
[2018-02-23 21:38] LABS: THYROID STIMULATING HORMONE 0.57 uIU/mL (0.47-4.68)
[2018-02-23 22:19] VITALS: BP 132/86
--- NOTE | 2018-02-24 07:47 | EKG REPORT ---
SEVERITY:- ABNORMAL ECG - SINUS TACHYCARDIA FIRST DEGREE AV BLOCK PROBABLE INFERIOR INFARCT, OLD : Confirmed by: Sergio Mueller MD 24-Feb-2018 07:46:47
== END 2018-02-23 22:19 | disposition home or self-care (01) ==
LOC: ER 19:22
DX: R00.2 Palpitations (principal); E04.9 Nontoxic goiter, unspecified; T38.2X6A Underdosing of antithyroid drugs, initial encounter; Z91.128 Patient's intentional underdosing of medication regimen for other reason; Z91.14 Patient's other noncompliance with medication regimen; R09.89 Other specified symptoms and signs involving the circulatory and respiratory systems; R00.0 Tachycardia, unspecified; F17.200 Nicotine dependence, unspecified, uncomplicated; I10 Essential (primary) hypertension; J45.909 Unspecified asthma, uncomplicated; Z88.1 Allergy status to other antibiotic agents; Z88.8 Allergy status to other drugs, medicaments and biological substances; Z91.040 Latex allergy status; Z88.0 Allergy status to penicillin; Z88.6 Allergy status to analgesic agent; Z88.2 Allergy status to sulfonamides; Z91.041 Radiographic dye allergy status
CPT/HCPCS: 36415; 71045; 80053; 83690; 84439; 84443; 84484; 85025; 93005; 93010; 99285

== ENCOUNTER 2018-02-25 20:09 | Emergency (ER) | payer OTHER ==
[2018-02-25 21:31] LABS: HEMATOCRIT 38.6 % (36.0-47.0); MEAN CORPUSCULAR HEMOGLOBIN 29.4 pg (27.0-33.4); MEAN CORPUSCULAR HGB CONC 33.7 g/dL (32.0-36.0); MEAN CORPUSCULAR VOLUME 87 fl (80-97); PLATELET COUNT 271 10^3/uL (150-450); RED BLOOD COUNT 4.42 10^6/uL (3.72-5.28); RED CELL DISTRIBUTION WIDTH 13.9 % (11.5-14.0); WHITE BLOOD COUNT 9.7 10^3/uL (4.0-10.5)
[2018-02-25 21:42] LABS: ANION GAP 9 (5-19); BLOOD UREA NITROGEN 9 mg/dL (7-20); CARBON DIOXIDE 23 mmol/L (22-30); CHLORIDE 106 mmol/L (98-107); GLUCOSE 91 mg/dL (75-110); SODIUM 137.7 mmol/L (137-145)
[2018-02-25 21:50] LABS: POTASSIUM 3.9 mmol/L (3.6-5.0)
[2018-02-25] MEDS ORDERED: LORAZEPAM 1 MG TABLET PO ONE (22:59)
--- NOTE | 2018-02-25 23:00 | ER Document Report ---
ED General - General Chief Complaint: Palpitations Stated Complaint: PALPITATIONS Time Seen by Provider: 02/25/18 21:08 Notes: Patient is a 42-year-old female well-known to me with a long-standing history of somatization, this is her fourth visit to the emergency department since February 162018 for concerns of palpitations. Patient has had continuously reassuring workups, continues to focus intensively on concerns about thyroid issues, low vitamin D levels, and a multitude of additional concerns. Nothing is new or different regarding her symptoms tonight that resulted in a repeat emergency visit tonight. The patient describes it as a sensation of a racing heart although states that has resolved by the time she presented tonight. No clear trigger. Did resolve spontaneously. Denies any associated chest discomfort. No shortness of breath, nausea or vomiting. Currently asymptomatic. TRAVEL OUTSIDE OF THE [place] IN LAST 30 DAYS: No - Related Data Allergies/Adverse Reactions: Cephalosporins Allergy (Severe, Verified 01/28/18 22:37) Throat itching and swelling ciprofloxacin [From Cipro] Allergy (Severe, Verified 01/28/18 22:37) Blistering in mouth and throat ethyl alcohol Allergy (Severe, Verified 01/28/18 22:37) Shortness of Breath, cough, difficulty breathing fluticasone [From Flonase] Allergy (Severe, Verified 01/28/18 22:37) Migraine, nose bleed latex Allergy (Severe, Verified 01/28/18 22:37) RASH Penicillins Allergy (Severe, Verified 01/28/18 22:37) Throat swelling, difficulty breathing cephalexin [From Keflex] Allergy (Verified 01/28/18 22:37) Throat swelling, difficulty breathing fluoxetine [From Prozac] Allergy (Verified 01/28/18 22:37) pantoprazole [From Protonix] Allergy (Verified 01/28/18 22:37) Lymphedema in face and neck aspirin Adverse Reaction (Verified 01/28/18 22:37) N&V Sulfa (Sulfonamide Antibiotics) Adverse Reaction (Verified 01/28/18 22:37) See Comments IV dye Allergy (Uncoded 01/28/18 22:37) arrhythmia Past Medical History - General Information source: Patient - Social History Smoking Status: Never Smoker Frequency of alcohol use: None Drug Abuse: None Lives with: Spouse/Significant other Family History: Reviewed & Not Pertinent - Past Medical History Cardiac Medical History: Reports: Hx Heart Attack - 2010, Hx Hypertension - HX OF Denies: Hx Coronary Artery Disease Pulmonary Medical History: Reports: Hx Asthma, Hx COPD - INHALERS Denies: Hx Bronchitis, Hx Pneumonia Neurological Medical History: Reports: Hx Migraine, Hx Seizures - NO MEDS - LAST 2013 - NOT CURRENT. Denies: Hx Cerebrovascular Accident Renal/ Medical History: Denies: Hx Peritoneal Dialysis Musculoskeletal Medical History: Denies Hx Arthritis Past Surgical History: Reports: Hx Cholecystectomy, Hx Gynecologic Surgery, Hx Hysterectomy, Hx Nose Surgery, Hx Tubal Ligation - Immunizations Hx Diphtheria, Pertussis, Tetanus Vaccination: No Review of Systems - Review of Systems Notes: Constitutional: Negative for fever. HENT: Negative for sore throat. Eyes: Negative for visual changes. Cardiovascular: Negative for chest pain. Positive for palpitations Respiratory: Negative for shortness of breath. Gastrointestinal: Negative for abdominal pain, vomiting or diarrhea. Genitourinary: Negative for dysuria. Musculoskeletal: Negative for back pain. Skin: Negative for rash. Neurological: Negative for headaches, weakness or numbness. 10 point ROS negative except as marked above and in HPI. Physical Exam - Vital signs Vitals: Temp Pulse Resp BP Pulse Ox 98 F 108 H 18 132/96 H 99 02/25/18 20:19 02/25/18 20:19 02/25/18 20:19 02/25/18 20:19 02/25/18 20:19 Interpretation: Tachycardic - Resolved at the time of my assessment Notes: PHYSICAL EXAMINATION: GENERAL: Well-appearing, well-nourished and in no acute distress. HEAD: Atraumatic, normocephalic. EYES: Pupils equal round and reactive to light, extraocular movements intact, sclera anicteric, conjunctiva are normal. ENT: nares patent, oropharynx clear without exudates. Moist mucous membranes. NECK: Normal range of motion, supple without lymphadenopathy LUNGS: Breath sounds clear to auscultation bilaterally and equal. No wheezes rales or rhonchi. HEART: Regular rate and rhythm without murmurs ABDOMEN: Soft, nontender, normoactive bowel sounds. No guarding, no rebound. No masses appreciated. EXTREMITIES: Normal range of motion, no pitting or edema. No cyanosis. NEUROLOGICAL: No focal neurological deficits. Moves all extremities spontaneously and on command. PSYCH: Extremely anxious SKIN: Warm, Dry, normal turgor, no rashes or lesions noted. Course - Re-evaluation Re-evalutation: 02/25/18 22:58 Patient presents with palpitations but is in no acute distress. Vitals within normal limits at time of arrival. EKG unremarkable with a normal sinus rhythm. Laboratories are unremarkable. Patient denies any chest pain, shortness of breath, or vomiting. At this time based on exam and history do not suspect a new onset arrhythmia, ACS, acute pulmonary embolus, aortic dissection. Patient encouraged to follow-up with their primary care physician. Patient also has a multitude of additional complaints although she is well-known to me, does have an extensive history of multiple complaints on presentation and follows with an extensive number of various types of physicians regarding these issues. I have again emphasized the patient that I believe a large portion of her symptoms are psychiatric in nature, and encouraged her to follow with the appropriate providers as I remain extremely worried about her frequency of complaints and visits to the emergency department with repeatedly reassuring workups. At this time will discharge with return precautions and follow-up recommendations. Verbal discharge instructions given a the bedside and opportunity for questions given. Medication warnings reviewed. Patient is in agreement with this plan and has verbalized understanding of return precautions and the need for primary care follow-up in the next 24-72 hours. - Vital Signs Vital signs: Temp Pulse Resp BP Pulse Ox 98.2 F 108 H 17 110/77 100 02/25/18 23:01 02/25/18 20:19 02/25/18 23:01 02/25/18 23:01 02/25/18 23:01 - Laboratory Result Diagrams: 02/25/18 21:15 02/25/18 21:15 - EKG Interpretation by Me Additional EKG results interpreted by me: 02/25/18 22:59 Sinus rhythm, rate 92. No ST elevations or depressions. QTC is 436. Discharge - Discharge Clinical Impression: Palpitations Condition: Good Disposition: HOME, SELF-CARE Additional Instructions: Please follow-up with your primary care doctor or a engineering tech regarding your palpitations. Return if you develop chest pain, shortness of breath, pass out, or have any other symptoms that are worrisome to you. Referrals: ARTI LAMBERT, FOLDED CLOTH TAPER-C [Primary Care Provider] - Follow up as needed
[2018-02-25 23:28] VITALS: BP 110/77
--- NOTE | 2018-02-26 09:20 | EKG REPORT ---
SEVERITY:- ABNORMAL ECG - SINUS RHYTHM FIRST DEGREE AV BLOCK BORDERLINE INFERIOR Q WAVES : Confirmed by: Sergio Mueller MD 26-Feb-2018 09:19:06
== END 2018-02-25 23:27 | disposition home or self-care (01) ==
LOC: ER 20:09
DX: R00.2 Palpitations (principal); I10 Essential (primary) hypertension; J44.9 Chronic obstructive pulmonary disease, unspecified; Z88.3 Allergy status to other anti-infective agents; Z91.040 Latex allergy status; Z88.2 Allergy status to sulfonamides; Z91.041 Radiographic dye allergy status; I25.2 Old myocardial infarction
CPT/HCPCS: 36415; 80048; 84703; 85027; 93005; 93010; 99285

== ENCOUNTER 2018-02-26 10:35 | Emergency (ER) | payer OTHER ==
[2018-02-26] MEDS ORDERED: ACETAMINOPHEN 325 MG TABLET PO ONE (10:48)
[2018-02-26] MEDS ORDERED: LIDOCAINE 5% (700 MG) TRANSDERMAL ADH..PATCH TP ONE (10:48)
--- NOTE | 2018-02-26 11:04 | RADIOLOGY REPORT (SQ) ---
EXAM DESCRIPTION: CHEST SINGLE VIEW COMPLETED DATE/TIME: 02/26/2018 10:58 am REASON FOR STUDY: cp COMPARISON: 02/23/2018 EXAM PARAMETERS: NUMBER OF VIEWS: One view. TECHNIQUE: Single frontal radiographic view of the chest acquired. RADIATION DOSE: NA LIMITATIONS: None. FINDINGS: LUNGS AND PLEURA: No opacities, masses or pneumothorax. No pleural effusion. MEDIASTINUM AND HILAR STRUCTURES: No masses. Contour normal. HEART AND VASCULAR STRUCTURES: Heart normal in size. Normal vasculature. BONES: No acute findings. HARDWARE: None in the chest. OTHER: No other significant finding. IMPRESSION: NO ACUTE RADIOGRAPHIC FINDING IN THE CHEST. TECHNICAL DOCUMENTATION: JOB ID: [id number] [employer]- All Rights Reserved Reading location - IP/workstation name: [email or web address]
[2018-02-26 11:08] LABS: ABSOLUTE BASOPHILS # (AUTO) 0.1 10^3/uL (0.0-0.2); ABSOLUTE EOSINOPHILS # (AUTO) 0.3 10^3/uL (0.0-0.6); ABSOLUTE LYMPHOCYTES (AUTO) 1.7 10^3/uL (0.5-4.7); ABSOLUTE MONOCYTES (AUTO) 0.8 10^3/uL (0.1-1.4); ABSOLUTE NEUT (AUTO) 7.1 10^3/uL (1.7-8.2); BASOPHILS % (AUTO) 0.7 % (0-2); EOSINOPHILS % (AUTO) 2.7 % (0-6); HEMATOCRIT 36.7 % (36.0-47.0); HEMOGLOBIN 12.5 g/dL (12.0-15.5); LYMPHOCYTES % (AUTO) 17.4 % (13-45); MEAN CORPUSCULAR HEMOGLOBIN 29.7 pg (27.0-33.4); MEAN CORPUSCULAR VOLUME 87 fl (80-97); PLATELET COUNT 248 10^3/uL (150-450); RED BLOOD COUNT 4.21 10^6/uL (3.72-5.28); RED CELL DISTRIBUTION WIDTH 14.4 % (11.5-14.0); SEGMENTED NEUTROPHILS % (AUTO) 71.2 % (42-78); TOTAL CELLS COUNTED % (AUTO) 100 %
[2018-02-26 11:26] LABS: ALANINE AMINOTRANSFERASE 22 U/L (9-52); ALBUMIN 4.2 g/dL (3.5-5.0); ALKALINE PHOSPHATASE 65 U/L (38-126); ANION GAP 6 (5-19); ASPARTATE AMINO TRANSFERASE 14 U/L (14-36); BILIRUBIN,DIRECT 0.2 mg/dL (0.0-0.4); BILIRUBIN,TOTAL 0.2 mg/dL (0.2-1.3); BLOOD UREA NITROGEN 12 mg/dL (7-20); CALCIUM 9.6 mg/dL (8.4-10.2); CARBON DIOXIDE 26 mmol/L (22-30); CHLORIDE 110 mmol/L (98-107); CREATINE KINASE 71 U/L (30-135); GLUCOSE 101 mg/dL (75-110); POTASSIUM 4.4 mmol/L (3.6-5.0); SODIUM 141.8 mmol/L (137-145); TOTAL PROTEIN 6.6 g/dL (6.3-8.2)
[2018-02-26 11:39] LABS: CREATINE KINASE MB < 0.22 ng/mL (<4.55); TROPONIN I < 0.012 ng/mL
--- NOTE | 2018-02-26 12:12 | EKG REPORT ---
SEVERITY:- OTHERWISE NORMAL ECG - SINUS RHYTHM ATRIAL PREMATURE COMPLEX : Confirmed by: Sergio Mueller MD 26-Feb-2018 12:11:21
--- NOTE | 2018-02-26 13:32 | ER Document Report ---
ED General - General Chief Complaint: Chest Pain Stated Complaint: CHEST PAIN Time Seen by Provider: 02/26/18 10:46 TRAVEL OUTSIDE OF THE [place] IN LAST 30 DAYS: No - HPI Patient complains to provider of: Chest pain Notes: Patient with a possible past medical history for some eye sensation or fastidious disorder coming today for chest pain. Patient has been seen multiple times in the ER for palpitations and chest pains in the past. Patient was recently seen less than 24 hours ago patient states while at home developed right-sided chest pain called EMS for further evaluation. Chest pain is reproducible on examination by EMS and also hurts to move. Patient states no trauma no new physical activity. Patient denies any recent hospitalization patient otherwise resting comfortably upon my evaluation. - Related Data Allergies/Adverse Reactions: Cephalosporins Allergy (Severe, Verified 01/28/18 22:37) Throat itching and swelling ciprofloxacin [From Cipro] Allergy (Severe, Verified 01/28/18 22:37) Blistering in mouth and throat ethyl alcohol Allergy (Severe, Verified 01/28/18 22:37) Shortness of Breath, cough, difficulty breathing fluticasone [From Flonase] Allergy (Severe, Verified 01/28/18 22:37) Migraine, nose bleed latex Allergy (Severe, Verified 01/28/18 22:37) RASH Penicillins Allergy (Severe, Verified 01/28/18 22:37) Throat swelling, difficulty breathing cephalexin [From Keflex] Allergy (Verified 01/28/18 22:37) Throat swelling, difficulty breathing fluoxetine [From Prozac] Allergy (Verified 01/28/18 22:37) pantoprazole [From Protonix] Allergy (Verified 01/28/18 22:37) Lymphedema in face and neck aspirin Adverse Reaction (Verified 01/28/18 22:37) N&V Sulfa (Sulfonamide Antibiotics) Adverse Reaction (Verified 01/28/18 22:37) See Comments IV dye Allergy (Uncoded 01/28/18 22:37) arrhythmia Past Medical History - Social History Smoking Status: Current Every Day Smoker Family History: Reviewed & Not Pertinent Patient has suicidal ideation: No Patient has homicidal ideation: No - Past Medical History Cardiac Medical History: Reports: Hx Heart Attack - 2010, Hx Hypertension - HX OF Denies: Hx Coronary Artery Disease Pulmonary Medical History: Reports: Hx Asthma, Hx COPD - INHALERS Denies: Hx Bronchitis, Hx Pneumonia Neurological Medical History: Reports: Hx Migraine, Hx Seizures - NO MEDS - LAST 2013 - NOT CURRENT. Denies: Hx Cerebrovascular Accident Renal/ Medical History: Denies: Hx Peritoneal Dialysis Musculoskeletal Medical History: Denies Hx Arthritis Past Surgical History: Reports: Hx Cholecystectomy, Hx Gynecologic Surgery, Hx Hysterectomy, Hx Nose Surgery, Hx Tubal Ligation - Immunizations Hx Diphtheria, Pertussis, Tetanus Vaccination: No Review of Systems - Review of Systems Constitutional: No symptoms reported EENT: No symptoms reported Cardiovascular: Chest pain Respiratory: No symptoms reported Gastrointestinal: No symptoms reported Genitourinary: No symptoms reported Female Genitourinary: No symptoms reported Musculoskeletal: No symptoms reported Skin: No symptoms reported Hematologic/Lymphatic: No symptoms reported Neurological/Psychological: No symptoms reported -: Yes All other systems reviewed and negative Physical Exam - Vital signs Vitals: Pulse Ox 98 02/26/18 10:37 Interpretation: Normal - General General appearance: Appears well, Alert - HEENT Head: Normocephalic, Atraumatic Eyes: Normal Pupils: PERRL - Respiratory Respiratory status: No respiratory distress Chest status: Tender - Tenderness to palpation of the right sternal border also the coracoid process. Breath sounds: Normal Chest palpation: Normal - Cardiovascular Rhythm: Regular Heart sounds: Normal auscultation Murmur: No - Abdominal Inspection: Normal Distension: No distension Bowel sounds: Normal Tenderness: Nontender Organomegaly: No organomegaly - Back Back: Normal, Nontender - Extremities General upper extremity: Normal inspection, Nontender, Normal color, Normal ROM, Normal temperature General lower extremity: Normal inspection, Nontender, Normal color, Normal ROM, Normal temperature, Normal weight bearing. No: Keke's sign - Neurological Neuro grossly intact: Yes Cognition: Normal Orientation: AAOx4 [place] Coma Scale Eye Opening: Spontaneous [place] Coma Scale Verbal: Oriented [place] Coma Scale Motor: Obeys Commands [place] Coma Scale Total: 15 Speech: Normal Motor strength normal: LUE, RUE, LLE, RLE Sensory: Normal - Psychological Associated symptoms: Normal affect, Normal mood - Skin Skin Temperature: Warm Skin Moisture: Dry Skin Color: Normal Course - Re-evaluation Re-evalutation: 02/26/18 14:33 The patient has atypical chest pain as the patient's chest pain is not suggestive of pulmonary embolus, cardiac ischemia, aortic dissection, or other serious etiology. Given the extremely low risk of these diagnoses further te sting and evaluation for these possibilities does not appear to be indicated at this time. The patient has been instructed to return if the symptoms worsen or change in any way. Chest pain is very consistent with chest wall pain. No acute findings on the patient's laboratory studies. Patient upon reevaluation now stating that she cannot move her right arm or move her neck to the right I expanded the patient he seemed to be otherwise muscle skeletal issues that she can take Tylenol and anti-inflammatory medications for patient and begins to move her head and move her arm. - Vital Signs Vital signs: Temp Pulse Resp BP Pulse Ox 98.1 F 73 16 115/67 98 02/26/18 13:45 02/26/18 13:45 02/26/18 13:45 02/26/18 13:45 02/26/18 13:45 - Laboratory Result Diagrams: 02/26/18 11:00 02/26/18 11:00 Laboratory results interpreted by me: 02/26/18 02/26/18 11:00 11:00 RDW 14.4 H Chloride 110 H Discharge - Discharge Clinical Impression: Chest wall pain Condition: Good Disposition: HOME, SELF-CARE Instructions: Anti-Inflammatory Medication ([facility]), Chest Wall Pain ([facility]), Chest Pain of Unclear Cause ([facility]) Additional Instructions: Laboratory studies today are normal. Recent thyroid studies were also normal. There is no reason to repeat your thyroid studies today. Your d-dimer looking for signs of blood clots within your lungs causing your pain is also negative no signs of blood clots. Chest x-ray is negative for any signs of infectious pathology your EKG and troponin negative for any cardiac disease. I recommend he follow-up with your primary care team assistant for further evaluation of your chronic issues. Continue your home medications as previously prescribed you can take Tylenol and anti-inflammatory medications that she has taken in the past for pain control. Would recommend drinking plenty of fluids to stay well- hydrated. Referrals: ARTI LAMBERT, [employer] BUSINESS OBJECTS DEVELOPER-C [Primary Care Provider] - Follow up as needed
[2018-02-26 13:46] VITALS: BP 115/67
== END 2018-02-26 13:46 | disposition home or self-care (01) ==
LOC: ER 10:35
DX: R07.89 Other chest pain (principal); F17.200 Nicotine dependence, unspecified, uncomplicated; I10 Essential (primary) hypertension; J44.9 Chronic obstructive pulmonary disease, unspecified
CPT/HCPCS: 36415; 71045; 80053; 82550; 82553; 84484; 85025; 85379; 93005; 93010; 99285

== ENCOUNTER 2018-03-08 18:34 | Emergency (ER) | payer OTHER ==
[2018-03-08 20:31] VITALS: BP 121/83
--- NOTE | 2018-03-08 20:38 | ER Document Report ---
ED Medical Screen (RME) - General Chief Complaint: High Blood Pressure Stated Complaint: BURNING IN THROAT Time Seen by Provider: 03/08/18 20:02 Primary Care Provider: ATRI LAMBERT FNP-C [Primary Care Provider] - Follow up as needed Mode of Arrival: Ambulatory Information source: Patient Notes: This is a 42-year-old female that presents to the emergency room with throat burning. The patient does have a history of reflux, thyroid nodules, heart palpitations. She is scheduled for an EGD/colonoscopy this Wednesday with Dr. Hope. Patient is scheduled for a thyroidectomy at [facility] on April 14. Patient has had her gallbladder taken out and has been evaluated by the surgical service. She is followed by cardiology for palpitations. Patient also has a history of neuropathy. She has had throat burning related to reflux. She has stated that it is in been improved with Decadron in the past. She does state that she has had GI cocktails in the past which have not helped. She also reports that she is allergic to a number of medicines and has been told by her GI doctor that she should not take any further new medicines until after the GI workup that is scheduled for this week. TRAVEL OUTSIDE OF THE [place] IN LAST 30 DAYS: No - HPI Onset: Last week Onset/Duration: Gradual Quality of pain: Burning, Dull Severity: Mild Pain Level: 1 Associated Symptoms: denies: Chest pain, Headache, Shortness of breath Exacerbated by: Denies Relieved by: Denies Similar symptoms previously: No Recently seen / treated by doctor: No - Related Data Smoking: Non-smoker Frequency of alcohol use: None Drug Abuse: None Allergies/Adverse Reactions: Cephalosporins Allergy (Severe, Verified 03/08/18 18:36) Throat itching and swelling ciprofloxacin [From Cipro] Allergy (Severe, Verified 03/08/18 18:36) Blistering in mouth and throat ethyl alcohol Allergy (Severe, Verified 03/08/18 18:36) Shortness of Breath, cough, difficulty breathing fluticasone [From Flonase] Allergy (Severe, Verified 03/08/18 18:36) Migraine, nose bleed latex Allergy (Severe, Verified 03/08/18 18:36) RASH Penicillins Allergy (Severe, Verified 03/08/18 18:36) Throat swelling, difficulty breathing cephalexin [From Keflex] Allergy (Verified 03/08/18 18:36) Throat swelling, difficulty breathing fluoxetine [From Prozac] Allergy (Verified 03/08/18 18:36) pantoprazole [From Protonix] Allergy (Verified 03/08/18 18:36) Lymphedema in face and neck aspirin Adverse Reaction (Verified 03/08/18 18:36) N&V Sulfa (Sulfonamide Antibiotics) Adverse Reaction (Verified 03/08/18 18:36) See Comments IV dye Allergy (Uncoded 03/08/18 18:36) arrhythmia Past Medical History - General Information source: Patient - Social History Cigarette use (# per day): No Chew tobacco use (# tins/day): No Frequency of alcohol use: None Drug Abuse: None Lives with: Family Family history: None - Past Medical History Cardiac Medical History: Reports: Hx Heart Attack - 2009, Hx Hypertension - HX OF Denies: Hx Coronary Artery Disease Pulmonary Medical History: Reports: Hx Asthma, Hx COPD - INHALERS Denies: Hx Bronchitis, Hx Pneumonia Neurological Medical History: Reports: Hx Migraine, Hx Seizures - NO MEDS - LAST 2013 - NOT CURRENT. Denies: Hx Cerebrovascular Accident Renal/ Medical History: Denies: Hx Peritoneal Dialysis Musculoskeltal Medical History: Denies Hx Arthritis Past Surgical History: Reports: Hx Cholecystectomy, Hx Gynecologic Surgery, Hx Hysterectomy, Hx Nose Surgery, Hx Tubal Ligation - Immunizations Hx Diphtheria, Pertussis, Tetanus Vaccination: No History of Influenza Vaccine for 11/2016 - 04/2017 Season: No Review of Systems - Review of Systems Constitutional: denies: Chills, Fever EENT: Other - Throat burning. denies: Nose congestion, Nose discharge, Sinus pressure, Sinus discharge Cardiovascular: Palpitations. denies: Chest pain, Heart racing Respiratory: No symptoms reported Gastrointestinal: denies: Abdominal pain, Nausea, Vomiting Genitourinary: No symptoms reported Female Genitourinary: No symptoms reported Musculoskeletal: No symptoms reported Skin: No symptoms reported Hematologic/Lymphatic: No symptoms reported Neurological/Psychological: No symptoms reported Physical Exam - Vital signs Vitals: Temp Pulse Resp BP Pulse Ox 98.4 F 91 16 122/69 98 03/08/18 18:46 03/08/18 18:46 03/08/18 18:46 03/08/18 18:46 03/08/18 18:46 Notes: Physical exam: GENERAL: Patient is alert and oriented x3, no acute distress HEAD: Atraumatic, normocephalic. EYES: Pupils equal round and reactive to light, extraocular movements intact, sclera anicteric, conjunctiva are normal. ENT: TMs normal, nares patent, oropharynx mildly erythematous without exudates or swelling. Moist mucous membranes. NECK: Normal range of motion, supple. Does have an obvious enlarged thyroid. There is no stridor. LUNGS: Breath sounds clear to auscultation bilaterally and equal. No wheezes rales or rhonchi. HEART: Regular rate and rhythm without murmurs, rubs or gallops. ABDOMEN: Soft, normoactive bowel sounds. No tenderness to palpation. No guarding, no rebound. No masses appreciated. EXTREMITIES: Normal range of motion, no pitting or edema. No clubbing or cyanosis. NEUROLOGICAL: Cranial nerves II through XII grossly intact. Normal speech, moving all extremities. PSYCH: Normal mood, normal affect. SKIN: Warm, Dry, normal turgor, no rashes or lesions noted. Course - Re-evaluation Re-evalutation: 03/08/18 20:46 Overall patient looks quite good. There is no clinical evidence of obstructed airway. Patient has a lot going on medically and seems anxious. I spent a prolonged period of time talking with her about each of her medical ailments and the medicines and what she is taking. While she states that she is been helped for with Decadron in the past for the throat burning, I think this will only worsen her GERD symptoms. The patient does not have any acute swelling or stridor and her airway seems patent. Decadron does not seem appropriate at this time. The patient is on some pain medicine. She has had a number of reactions to other medicines. So the goal will be not to introduce any new medicines and allow the GI workup this week. After speaking with her in detail about each of her issues, she did seem more relaxed and responded well to the reassurance. I do not believe there is an acute medical issue at this time. The plan will be for the patient to follow-up with her GI doctor on Wednesday at which time she is going to get EGD and colonoscopy. - Vital Signs Vital signs: Temp Pulse Resp BP Pulse Ox 98.2 F 101 H 18 121/83 100 03/08/18 20:30 03/08/18 20:30 03/08/18 20:30 03/08/18 20:30 03/08/18 20:30 Doctor's Discharge - Discharge Clinical Impression: GERD Condition: Stable Disposition: HOME, SELF-CARE Additional Instructions: I want you to continue your current medicines. You are on the right plan: The EGD and colonoscopy this Wednesday. You could take tramadol and/or Percocet as you have been taken on. I do not see significant drops in blood pressure from either of these medicines and you do tolerate them. If you feel that your blood pressure is a little low, you could split the tramadol in half. Otherwise return to the emergency room for any worsening palpitations, chest pain or any concerns or getting worse. Referrals: ARTI LAMBERT, IMPORT SPECIALIST-C [Primary Care Provider] - Follow up as needed
== END 2018-03-08 20:36 | disposition home or self-care (01) ==
LOC: ER 18:34
DX: K21.9 Gastro-esophageal reflux disease without esophagitis (principal); R00.2 Palpitations; I10 Essential (primary) hypertension; J44.9 Chronic obstructive pulmonary disease, unspecified; Z90.49 Acquired absence of other specified parts of digestive tract; Z88.1 Allergy status to other antibiotic agents; Z88.8 Allergy status to other drugs, medicaments and biological substances; Z91.040 Latex allergy status; Z91.041 Radiographic dye allergy status; Z88.0 Allergy status to penicillin; Z91.048 Other nonmedicinal substance allergy status
CPT/HCPCS: 99283

== ENCOUNTER 2018-03-11 08:26 | Day surgery (SDC) | payer OTHER ==
[~2018-03-11 08:26] MED LIST changes: -ACETAMINOPHEN 325 MG TABLET PO PRN; -BUPIVACAINE HCL 0.5 % INJ/PF 30 ML SDV ONE; -LACTATED RINGERS 1000 ML IV PRN; +LIDOCAINE 2% INJ-PF (20 MG/ML) 10 ML AMPUL ONE; +MIDAZOLAM 2 MG/2 ML INJ ONE; +PROPOFOL INJ 200 MG/20 ML VIAL IV ONE
[2018-03-11] MEDS ORDERED: PROPOFOL INJ 200 MG/20 ML VIAL IV ONE ×2 (10:00→11:06)
[2018-03-11] MEDS ORDERED: DIPHENHYDRAMINE HCL 50 MG/ML VIAL IV PRN (10:26)
[2018-03-11] MEDS ORDERED: PROMETHAZINE HCL INJ 25 MG/1 ML VIAL IV PRN (10:26)
[2018-03-11] MEDS ORDERED: MEPERIDINE HCL/PF INJ 25 MG/1 ML DISP.SYRIN IV PRN (10:26)
[2018-03-11 11:34] VITALS: BP 115/73
--- NOTE | 2018-03-11 12:39 | Operative Report ---
Operative Report DATE OF SURGERY: 03/11/18 Operative Report: The risks, benefits and alternatives of the procedure including the risk of bleeding, perforation requiring surgery have been explained to the patient in detail and informed consent is obtained for the procedure. Anesthesia was performing separate consents for the sedation portion of this procedure. The patient was taken back to the operating room after anesthesia had seen the patient and they had to induce sedation with propofol. A rectal examination is done which did not reveal any masses, tears or fissures. An Olympus videoscope was introduced into the patient's rectum. The scope was then carefully advanced all the way to the cecum. The cecum was identified by the usual anatomical landmarks including the ileocecal valve as well as the appendiceal office. Photodocumentation is obtained. The scope was then sequentially pulled back via the various segments of the colon including the ascending colon, hepatic flexure, transverse colon, splenic flexure, descending colon and finally into the rectosigmoid portions of the colon. Retroflexion maneuver was performed. The risks benefits and alternatives of the procedure explained to the patient in detail and informed consent is obtained.A GIF Olympus video scope was inserted into the patient's mouth and hypopharynx, the esophagus is identified intubated and insufflated ,the scope was then advanced through the esophagus stomach and duodenum ,retroflexion maneuver is done ,the esophagus stomach and first and second portions of the duodenum examined. PREOPERATIVE DIAGNOSIS: Epigastric pain. Blood in stools POSTOPERATIVE DIAGNOSIS: Multiple polyps in the colon. Total of 16 polyps that were all removed via snare polypectomy. Extended procedure time greater than 1 hour for removal of all polyps. They were retrieved. No active bleeding noted. Gastritis biopsy rule out Helicobacter pylori OPERATION: Colonoscopy with snare polypectomy, extended procedure time as noted. EGD with biopsy SURGEON: HERMINIA BAKER ANESTHESIA: LMAC TISSUE REMOVED OR ALTERED: As noted above. COMPLICATIONS: None. ESTIMATED BLOOD LOSS: None. INTRAOPERATIVE FINDINGS: As noted above. PROCEDURE: Patient tolerated the procedure well. No immediate postprocedure complications are noted. Patient discharged in good condition. Discharge date 03/11/2018. Discharge diet: Regular. Discharge activity: Regular. 2-3-week follow-up to discuss findings. Patient is instructed to call the office or proceed to the emergency room should there be any further problems or questions. I will wait on the pathology. One year surveillance colonoscopy.
== END 2018-03-11 11:38 | disposition home or self-care (01) ==
LOC: OROUT 08:26
PROVIDERS: ATTEND Internal Medicine Gastroenterology
DX: K29.50 Unspecified chronic gastritis without bleeding (principal); K92.1 Melena; B96.81 Helicobacter pylori [H. pylori] as the cause of diseases classified elsewhere; D12.6 Benign neoplasm of colon, unspecified; K63.5 Polyp of colon; K44.9 Diaphragmatic hernia without obstruction or gangrene; E78.5 Hyperlipidemia, unspecified; J43.9 Emphysema, unspecified; I25.2 Old myocardial infarction; G40.909 Epilepsy, unspecified, not intractable, without status epilepticus; Z85.42 Personal history of malignant neoplasm of other parts of uterus; F17.210 Nicotine dependence, cigarettes, uncomplicated; Z79.899 Other long term (current) drug therapy; Z88.2 Allergy status to sulfonamides; Z91.040 Latex allergy status; Z88.1 Allergy status to other antibiotic agents; Z88.8 Allergy status to other drugs, medicaments and biological substances
CPT/HCPCS: 43239; 45385; 81025; 88342 ×2; 88305 ×2; J2704; 813; J2250; J3490

== ENCOUNTER 2018-03-22 19:31 | Emergency (ER) | payer OTHER ==
[2018-03-22 20:12] VITALS: BP 139/89
--- NOTE | 2018-03-22 21:05 | RADIOLOGY REPORT (SQ) ---
EXAM DESCRIPTION: XR CHEST 1 VIEW COMPLETED DATE/TME: 03/22/2018 20:35 CLINICAL HISTORY: 42 years, Female, CP COMPARISON: 02/26/2018 chest NUMBER OF VIEWS: 1 TECHNIQUE: Portable chest LIMITATIONS: None. FINDINGS: Heart size is normal. Lungs are clear. No pneumothorax IMPRESSION: Negative chest copyright 2010 [id number]- All Rights Reserved
--- NOTE | 2018-03-22 22:58 | ER Document Report ---
ED Medical Screen (RME) - General Chief Complaint: Chest Pain Stated Complaint: CHEST PAIN Time Seen by Provider: 03/22/18 22:57 Primary Care Provider: ARTI LAMBERT FNP-C [Primary Care Provider] - Follow up as needed Notes: Patient is a 42-year-old female who presents to the emergency department with a chief complaint of chest pain and abdominal pain. Her abdominal pain is just below her navel. She states that she was having abdominal pain and it radiated up to her chest. She had a colonoscopy, endoscopy, and polyps removed on the 11 of March. She states that she was helping her lift some objects and noticed she had some rectal bleeding. I have greeted and performed a rapid initial assessment of this patient. A comprehensive ED assessment and evaluation of the patient, analysis of test results and completion of medical decision making process will be conducted by an additional ED providers. TRAVEL OUTSIDE OF THE [place] IN LAST 30 DAYS: No - Related Data Allergies/Adverse Reactions: Cephalosporins Allergy (Severe, Verified 03/10/18 11:05) Throat itching and swelling ciprofloxacin [From Cipro] Allergy (Severe, Verified 03/10/18 11:05) Blistering in mouth and throat ethyl alcohol Allergy (Severe, Verified 03/10/18 11:05) Shortness of Breath, cough, difficulty breathing fluticasone [From Flonase] Allergy (Severe, Verified 03/10/18 11:05) Migraine, nose bleed latex Allergy (Severe, Verified 03/10/18 11:05) RASH Penicillins Allergy (Severe, Verified 03/10/18 11:05) Throat swelling, difficulty breathing cephalexin [From Keflex] Allergy (Verified 03/10/18 11:05) Throat swelling, difficulty breathing dexlansoprazole [From Dexilant] Allergy (Verified 03/22/18 19:38) erythromycin base [From Erythrocin] Allergy (Verified 03/10/18 11:05) Hives fluoxetine [From Prozac] Allergy (Verified 03/10/18 11:05) pantoprazole [From Protonix] Allergy (Verified 03/10/18 11:05) Lymphedema in face and neck prednisone Allergy (Verified 03/10/18 11:05) Tachycardia sertraline [From Zoloft] Allergy (Verified 03/10/18 11:05) aspirin Adverse Reaction (Verified 03/10/18 11:05) N&V Sulfa (Sulfonamide Antibiotics) Adverse Reaction (Verified 03/10/18 11:05) See Comments IV dye Allergy (Uncoded 03/10/18 11:05) arrhythmia Past Medical History - Social History Family history: None - Past Medical History Cardiac Medical History: Reports: Hx Heart Attack - 2009, Hx Hypertension - HX OF Denies: Hx Coronary Artery Disease Pulmonary Medical History: Reports: Hx Asthma, Hx COPD - INHALERS Denies: Hx Bronchitis, Hx Pneumonia Neurological Medical History: Reports: Hx Migraine, Hx Seizures - NO MEDS - LAST 2013 - NOT CURRENT. Denies: Hx Cerebrovascular Accident Renal/ Medical History: Denies: Hx Peritoneal Dialysis Musculoskeltal Medical History: Denies Hx Arthritis Past Surgical History: Reports: Hx Cholecystectomy, Hx Gynecologic Surgery, Hx Hysterectomy, Hx Nose Surgery, Hx Tubal Ligation - Immunizations Hx Diphtheria, Pertussis, Tetanus Vaccination: No History of Influenza Vaccine for 11/2016 - 04/2017 Season: No Physical Exam - Vital signs Vitals: Temp Pulse Resp BP Pulse Ox 99.3 F 89 16 139/89 H 98 03/22/18 20:09 03/22/18 20:09 03/22/18 20:09 03/22/18 20:09 03/22/18 20:09 - Cardiovascular Rhythm: Regular Heart sounds: Normal auscultation Pulses: Normal: Radial - Abdominal Tenderness: Tender - Mid abdomen Course - Vital Signs Vital signs: Temp Pulse Resp BP Pulse Ox 99.3 F 89 16 139/89 H 98 03/22/18 20:09 03/22/18 20:09 03/22/18 20:09 03/22/18 20:09 03/22/18 20:09 Doctor's Discharge - Discharge Referrals: ARTI LAMBERT, CERTIFIED ALCOHOL COUNSELOR-C [Primary Care Provider] - Follow up as needed
[2018-03-22 23:06] LABS: ABSOLUTE BASOPHILS # (AUTO) 0.1 10^3/uL (0.0-0.2); ABSOLUTE EOSINOPHILS # (AUTO) 0.4 10^3/uL (0.0-0.6); ABSOLUTE LYMPHOCYTES (AUTO) 2.7 10^3/uL (0.5-4.7); ABSOLUTE MONOCYTES (AUTO) 0.6 10^3/uL (0.1-1.4); ABSOLUTE NEUT (AUTO) 4.7 10^3/uL (1.7-8.2); BASOPHILS % (AUTO) 1.1 % (0-2); EOSINOPHILS % (AUTO) 4.2 % (0-6); HEMATOCRIT 38.7 % (36.0-47.0); LYMPHOCYTES % (AUTO) 31.9 % (13-45); MEAN CORPUSCULAR HEMOGLOBIN 29.2 pg (27.0-33.4); MEAN CORPUSCULAR HGB CONC 33.6 g/dL (32.0-36.0); MEAN CORPUSCULAR VOLUME 87 fl (80-97); MONOCYTES % (AUTO) 7.1 % (3-13); PLATELET COUNT 261 10^3/uL (150-450); RED BLOOD COUNT 4.45 10^6/uL (3.72-5.28); RED CELL DISTRIBUTION WIDTH 14.8 % (11.5-14.0); SEGMENTED NEUTROPHILS % (AUTO) 55.7 % (42-78); TOTAL CELLS COUNTED % (AUTO) 100 %; WHITE BLOOD COUNT 8.4 10^3/uL (4.0-10.5)
[2018-03-22 23:19] LABS: ALANINE AMINOTRANSFERASE 28 U/L (9-52); ALBUMIN 4.6 g/dL (3.5-5.0); ALKALINE PHOSPHATASE 75 U/L (38-126); ANION GAP 11 (5-19); ASPARTATE AMINO TRANSFERASE 19 U/L (14-36); BILIRUBIN,DIRECT 0.1 mg/dL (0.0-0.4); BILIRUBIN,TOTAL 0.3 mg/dL (0.2-1.3); BLOOD UREA NITROGEN 11 mg/dL (7-20); CALCIUM 9.9 mg/dL (8.4-10.2); CARBON DIOXIDE 25 mmol/L (22-30); CHLORIDE 105 mmol/L (98-107); CREATINE KINASE 88 U/L (30-135); GLUCOSE 86 mg/dL (75-110); POTASSIUM 4.2 mmol/L (3.6-5.0); SODIUM 140.8 mmol/L (137-145); TOTAL PROTEIN 7.2 g/dL (6.3-8.2)
[2018-03-22 23:33] LABS: CREATINE KINASE MB < 0.22 ng/mL (<4.55); TROPONIN I < 0.012 ng/mL
--- NOTE | 2018-03-23 01:39 | ER Document Report ---
ED Cardiac - General Chief Complaint: Chest Pain Stated Complaint: CHEST PAIN Time Seen by Provider: 03/22/18 22:57 Primary Care Provider: ARTI LAMBERT FNP-C [Primary Care Provider] - Follow up as needed Information source: Patient Notes: HISTORY OF PRESENT ILLNESS: Patient is a 42-year-old female with a past medical history of several significant chronic health conditions including coronary disease and thyroid/parathyroid "nodule" was scheduled for resection later this month who presents with pain and muscle spasms to the left side of the chest as well as the left side of the face that patient describes as "muscle jerking and contractions." Location: Left side of the jaw, left side of the shoulder Onset: Gradual Provocation: None Quality: Tremors Radiation: None Severity: Mild to moderate Timing: Intermittent Associated symptoms: Denies chest pain, shortness of breath, fevers, nausea or vomiting, diaphoresis, uncontrollable movements of the extremities REVIEW OF SYSTEMS: CONSTITUTIONAL : Denies fever or chills, no sweats. Denies recent illness. EENT: Denies eye, ear, throat, or mouth pain or symptoms. Denies nasal or sinus congestion. CARDIOVASCULAR: Denies chest pain. RESPIRATORY: Denies cough, cold, or chest congestion. Denies shortness of breath, difficulty breathing, or wheezing. GASTROINTESTINAL: Denies abdominal pain. Denies nausea, vomiting, or diarrhea. Denies constipation. GENITOURINARY: Denies difficulty urinating, painful urination, burning, frequency, or blood in urine. Denies vaginal bleeding, abnormal or irregular periods. MUSCULOSKELETAL: Positive for muscle contractions and tremors of the head and neck. SKIN: Denies rash or skin lesions. HEMATOLOGIC : Denies easy bruising or bleeding. LYMPHATIC: Denies swollen, enlarged glands. NEUROLOGICAL: Denies altered mental status or loss of consciousness. Denies headache. Denies weakness or paralysis or loss of use of either side. Denies problems with gait or speech. Denies sensory or motor loss. PSYCHIATRIC: Denies anxiety or stress or depression. All other systems reviewed and negative. PHYSICAL EXAMINATION: GENERAL: Well-appearing, well-nourished and in no acute distress. HEAD: Atraumatic, normocephalic. No scalp deformity, depression, or crepitance. EYES: Pupils are 3 mm and equal/round/reactive to light, extraocular movements intact, sclera anicteric, conjunctiva are normal. ENT: Nares patent bilaterally, oropharynx clear without exudates or palatal petechia. Moist mucous membranes. No tonsil hypertrophy. NECK: Normal range of motion, supple without lymphadenopathy. LUNGS: Breath sounds present, equal, and clear to auscultation bilaterally. No wheezes, rales, or rhonchi. HEART: Regular rate and rhythm without murmurs, rubs, or gallops. 2+ peripheral pulses. Normal capillary refill. ABDOMEN: Soft, nontender, nondistended. Normoactive bowel sounds. No guarding, no rebound. No masses appreciated. BACK: Normal contour, no midline tenderness. Rectal exam deferred. PELVC: Deferred. EXTREMITIES: Normal range of motion, no pitting or edema. No cyanosis. NEUROLOGICAL: No focal neurological deficits. Moves all extremities spontaneously and on command. Negative Trousseau or Chvostek sign. PSYCH: Normal mood, normal affect. No suicidal thoughts/ideations. No homocidal thoughts/ideations. No hallucinations. SKIN: Warm, dry, normal turgor, no rashes or lesions noted. ASSESSMENT AND PLAN: This patient is a 42-year-old female who presents with muscle tremors and tightness to the left side of the head, neck, and shoulder. Patient is adamant she did not have "that type of chest pain" and describes it almost every time as "muscle spasms." 1. Will obtain labs, cardiac enzymes, chest x-ray, and urinalysis. 2. Will give Toradol and reassess. TRAVEL OUTSIDE OF THE [place] IN LAST 30 DAYS: No - Related Data Allergies/Adverse Reactions: Cephalosporins Allergy (Severe, Verified 03/10/18 11:05) Throat itching and swelling ciprofloxacin [From Cipro] Allergy (Severe, Verified 03/10/18 11:05) Blistering in mouth and throat ethyl alcohol Allergy (Severe, Verified 03/10/18 11:05) Shortness of Breath, cough, difficulty breathing fluticasone [From Flonase] Allergy (Severe, Verified 03/10/18 11:05) Migraine, nose bleed latex Allergy (Severe, Verified 03/10/18 11:05) RASH Penicillins Allergy (Severe, Verified 03/10/18 11:05) Throat swelling, difficulty breathing cephalexin [From Keflex] Allergy (Verified 03/10/18 11:05) Throat swelling, difficulty breathing dexlansoprazole [From Dexilant] Allergy (Verified 03/22/18 19:38) erythromycin base [From Erythrocin] Allergy (Verified 03/10/18 11:05) Hives fluoxetine [From Prozac] Allergy (Verified 03/10/18 11:05) pantoprazole [From Protonix] Allergy (Verified 03/10/18 11:05) Lymphedema in face and neck prednisone Allergy (Verified 03/10/18 11:05) Tachycardia sertraline [From Zoloft] Allergy (Verified 03/10/18 11:05) aspirin Adverse Reaction (Verified 03/10/18 11:05) N&V Sulfa (Sulfonamide Antibiotics) Adverse Reaction (Verified 03/10/18 11:05) See Comments IV dye Allergy (Uncoded 03/10/18 11:05) arrhythmia Past Medical History - General Information source: Patient - Social History Smoking Status: Unknown if Ever Smoked Chew tobacco use (# tins/day): No Frequency of alcohol use: None Drug Abuse: None Lives with: Family Family History: Reviewed & Not Pertinent Patient has suicidal ideation: No Patient has homicidal ideation: No - Past Medical History Cardiac Medical History: Reports: Hx Heart Attack - 2009, Hx Hypertension - HX OF Denies: Hx Coronary Artery Disease Pulmonary Medical History: Reports: Hx Asthma, Hx COPD - INHALERS Denies: Hx Bronchitis, Hx Pneumonia EENT Medical History: Reports: None Neurological Medical History: Reports: Hx Migraine, Hx Seizures - NO MEDS - LAST 2013 - NOT CURRENT. Denies: Hx Cerebrovascular Accident Endocrine Medical History: Reports: None Renal/ Medical History: Reports: None. Denies: Hx Peritoneal Dialysis Malignancy Medical History: Reports: None GI Medical History: Reports: None Musculoskeletal Medical History: Reports None, Denies Hx Arthritis Skin Medical History: Reports None Psychiatric Medical History: Reports: None Traumatic Medical History: Reports: None Infectious Medical History: Reports: None Past Surgical History: Reports: Hx Cholecystectomy, Hx Gynecologic Surgery, Hx Hysterectomy, Hx Nose Surgery, Hx Tubal Ligation - Immunizations Immunizations up to date: Yes Hx Diphtheria, Pertussis, Tetanus Vaccination: No Physical Exam - Vital signs Vitals: Temp Pulse Resp BP Pulse Ox 99.3 F 89 16 139/89 H 98 03/22/18 20:09 03/22/18 20:09 03/22/18 20:09 03/22/18 20:09 03/22/18 20:09 Course - Vital Signs Vital signs: Temp Pulse Resp BP Pulse Ox 99.3 F 89 16 139/89 H 98 03/22/18 20:09 03/22/18 20:09 03/22/18 20:09 03/22/18 20:09 03/22/18 20:09 - Laboratory Result Diagrams: 03/22/18 22:54 03/22/18 22:54 Laboratory results interpreted by me: 03/22/18 22:54 RDW 14.8 H - Diagnostic Test Radiology reviewed: Image reviewed, Reports reviewed - EKG Interpretation by Me EKG shows normal: Sinus rhythm Rate: Normal Rhythm: NSR [place]/QRS: No: Right axis deviation, Left axis deviation, RBBB, LBBB, IVCD, LAHB/LAFB, LPHB/LPFB, Bifasicular block Voltage: No: Increased voltage, Consistant with LVH, Decreased voltage, Throughout, Limb leads P Waves: No: [place], LAE, Absent, AV Dissociation, Other Heart block present: No: 1st Degree, Mobitz 1, Mobitz 2, CHB (3rd degree block) When compared to previous EKG there are: No significant change Discharge - Discharge Clinical Impression: Muscle tremor Condition: Good Disposition: HOME, SELF-CARE Additional Instructions: You have been evaluated in the Emergency Department for painful muscle spasms to the left side of the face and neck. While here, all of your blood work was normal and you are safe to be discharged home. Please follow-up with your primary physician as instructed in 1-2 weeks to be rechecked. Return to the Emergency Department if you experience chest pressure, shortness of breath, difficulty walking, or any other concerning symptoms. Referrals: ARTI LAMBERT FNP-C [Primary Care Provider] - Follow up as needed Print Language: Kazakh
--- NOTE | 2018-03-23 23:06 | EKG REPORT ---
SEVERITY:- ABNORMAL ECG - SINUS ARRHYTHMIA, RATE 80-99 FIRST DEGREE AV BLOCK BORDERLINE INFERIOR Q WAVES : Confirmed by: Tomasz Mir 23-Mar-2018 23:05:26
== END 2018-03-23 05:12 | disposition home or self-care (01) ==
LOC: ER 19:31
DX: R25.1 Tremor, unspecified (principal); I10 Essential (primary) hypertension; I25.2 Old myocardial infarction; J44.9 Chronic obstructive pulmonary disease, unspecified; Z88.1 Allergy status to other antibiotic agents; Z88.8 Allergy status to other drugs, medicaments and biological substances; Z91.040 Latex allergy status; Z88.0 Allergy status to penicillin; Z88.6 Allergy status to analgesic agent; Z88.2 Allergy status to sulfonamides; Z91.041 Radiographic dye allergy status
CPT/HCPCS: 36415; 71045; 80053; 82550; 82553; 84484; 85025; 93005; 93010; 99284

== ENCOUNTER 2018-03-26 09:16 | Emergency (ER) | payer SELFPAY ==
[2018-03-26 09:33] VITALS: BP 124/93
--- NOTE | 2018-03-26 10:22 | ER Document Report ---
ED General - General Chief Complaint: Allergic Reaction Stated Complaint: POSSIBLE ALLERGIC REACTION Time Seen by Provider: 03/26/18 09:46 Primary Care Provider: ARTI LAMBERT FNP-C [NO LOCAL MD] - Follow up in 3-5 days Notes: Patient is a 42-year-old female that presents to the emergency department for chief complaint of possible allergic reaction. Patient thought that may be her neck was swelling, she just started taking tetracycline and doxycycline to treat H pylori, and she has had a history of allergic reactions to multiple antibiotics, and was concerned about this, however she does have a goiter, which is being surgically removed at the end of this month, and she thought maybe it just looked a little more swollen today, however she did not have any more difficulty swallowing, or painful swallowing. Denies having any throat tightness. She also denies noting any rash, nausea, vomiting or abdominal pain. She otherwise feels better now, she was just concerned, and anxious about the possibility of an allergic reaction to another antibiotic. No other complaints at this time. Past Medical History: Hypothyroidism, thyromegaly, GERD and H. pylori Past Surgical History: Reviewed and not pertinent for presentation Social History: Admits to smoking cigarettes daily, denies alcohol or drug use. Family History: Reviewed and noncontributory for presenting illness Allergies: Reviewed, see documented allergy list. REVIEW OF SYSTEMS: Other than noted above, the 12 point review of systems was reviewed with the patient and were negative, all pertinent findings are included in the HPI. PHYSICAL EXAMINATION: Vital signs reviewed, nursing noted reviewed. GENERAL: Well-appearing, well-nourished and in no acute distress. HEAD: Atraumatic, normocephalic. EYES: Eyes appear normal, sclera anicteric, conjunctiva are normal. ENT: Moist mucous membranes. Uvula midline, no angioedema appreciated. NECK: Normal range of motion, supple without lymphadenopathy, thyromegaly palpated, nontender LUNGS: Breath sounds clear to auscultation bilaterally and equal. No wheezes rales or rhonchi. HEART: Regular rate and rhythm without murmurs EXTREMITIES: Nontender, good range of motion, no pitting or edema. NEUROLOGICAL: No focal neurological deficits. Moves all extremities spontaneously Motor and sensory grossly intact on exam. PSYCH: Normal mood, normal affect. SKIN: Warm, Dry, normal turgor, no rashes or lesions noted on exposed skin TRAVEL OUTSIDE OF THE [place] IN LAST 30 DAYS: No - Related Data Allergies/Adverse Reactions: Cephalosporins Allergy (Severe, Verified 03/26/18 09:19) Throat itching and swelling ciprofloxacin [From Cipro] Allergy (Severe, Verified 03/26/18 09:19) Blistering in mouth and throat ethyl alcohol Allergy (Severe, Verified 03/26/18 09:19) Shortness of Breath, cough, difficulty breathing fluticasone [From Flonase] Allergy (Severe, Verified 03/26/18 09:19) Migraine, nose bleed latex Allergy (Severe, Verified 03/26/18 09:19) RASH Penicillins Allergy (Severe, Verified 03/26/18 09:19) Throat swelling, difficulty breathing cephalexin [From Keflex] Allergy (Verified 03/26/18 09:19) Throat swelling, difficulty breathing dexlansoprazole [From Dexilant] Allergy (Verified 03/26/18 09:19) erythromycin base [From Erythrocin] Allergy (Verified 03/26/18 09:19) Hives fluoxetine [From Prozac] Allergy (Verified 03/26/18 09:19) prednisone Allergy (Verified 03/26/18 09:19) Tachycardia sertraline [From Zoloft] Allergy (Verified 03/26/18 09:19) aspirin Adverse Reaction (Verified 03/26/18 09:19) N&V Sulfa (Sulfonamide Antibiotics) Adverse Reaction (Verified 03/26/18 09:19) See Comments IV dye Allergy (Uncoded 03/26/18 09:19) arrhythmia Past Medical History - Social History Smoking Status: Current Every Day Smoker Chew tobacco use (# tins/day): No Drug Abuse: None Family History: Reviewed & Not Pertinent Patient has suicidal ideation: No Patient has homicidal ideation: No - Past Medical History Cardiac Medical History: Reports: Hx Heart Attack - 2009, Hx Hypertension - HX OF Denies: Hx Coronary Artery Disease Pulmonary Medical History: Reports: Hx Asthma, Hx COPD - INHALERS Denies: Hx Bronchitis, Hx Pneumonia Neurological Medical History: Reports: Hx Migraine, Hx Seizures - NO MEDS - LAST 2013 - NOT CURRENT. Denies: Hx Cerebrovascular Accident Renal/ Medical History: Denies: Hx Peritoneal Dialysis Musculoskeletal Medical History: Denies Hx Arthritis Past Surgical History: Reports: Hx Cholecystectomy, Hx Gynecologic Surgery, Hx Hysterectomy, Hx Nose Surgery, Hx Tubal Ligation - Immunizations Immunizations up to date: Yes Hx Diphtheria, Pertussis, Tetanus Vaccination: No Physical Exam - Vital signs Vitals: Temp Pulse Resp BP Pulse Ox 98.4 F 84 20 124/93 H 99 03/26/18 09:31 03/26/18 09:31 03/26/18 09:03/26/18 09:03/26/18 09:31 Course - Re-evaluation Re-evalutation: Patient seen and examined vital signs reviewed. Patient appears well on exam, no acute or concerning findings for an allergic reaction, patient advised to continue monitoring for symptoms as she does have a history of multiple medical allergies, but at this time I do not feel she is having an adverse or allergic reaction, she is advised to follow-up with her primary care. Patient agreeable to this plan of care. - Vital Signs Vital signs: Temp Pulse Resp BP Pulse Ox 98.4 F 84 20 124/93 H 99 03/26/18 09:31 03/26/18 09:03/26/18 09:03/26/18 09:31 03/26/18 09:31 Discharge - Discharge Clinical Impression: Medication reaction Qualifiers: Encounter type: initial encounter Qualified Code(s): T50.905A - Adverse effect of unspecified drugs, medicaments and biological substances, initial encounter Condition: Stable Disposition: HOME, SELF-CARE Additional Instructions: If you develop worsening symptoms, do not hesitate to return to the emergency department. Please return to the emergency department if you have any worsening, or concern of your symptoms. Please return to the emergency department if you develop chest pain, difficulty breathing, severe abdominal pain, or ongoing vomiting. Please follow-up with your primary care physician in 2-3 days and any other recommended physicians. If prescribed, take all medications as directed. If you have any questions or concerns do not hesitate to return the emergency department for evaluation. Referrals: ARTI LAMBERT FNP-C [NO LOCAL MD] - Follow up in 3-5 days
== END 2018-03-26 10:38 | disposition home or self-care (01) ==
LOC: ER 09:16
DX: T50.905A Adverse effect of unspecified drugs, medicaments and biological substances, initial encounter (principal); Z79.899 Other long term (current) drug therapy; F17.210 Nicotine dependence, cigarettes, uncomplicated; J44.9 Chronic obstructive pulmonary disease, unspecified
CPT/HCPCS: 99283

== ENCOUNTER 2018-05-05 21:33 | Emergency (ER) | payer BC, OTHER ==
--- NOTE | 2018-05-05 22:58 | EKG REPORT ---
SEVERITY:- BORDERLINE ECG - SINUS RHYTHM BORDERLINE INFERIOR Q WAVES : Confirmed by: Tomasz Mir 05-May-2018 22:57:48
--- NOTE | 2018-05-06 01:04 | ER Document Report ---
ED General - General Chief Complaint: Palpitations Stated Complaint: RACING HEART Time Seen by Provider: 05/06/18 00:40 Primary Care Provider: SUDHAKAR GRIFFITH PA-C [Primary Care Provider] - Follow up as needed Notes: Patient is a 43-year-old female that comes emergency department for chief complaint of an episode of palpitations that lasted for a few minutes prior to arrival. She states that she was told that she could expect to have palpitations because her "thyroid function tests are off", she just had her medications adjusted, increased, she is to have a thyroid panel rechecked in a couple of weeks. She states she has had sweet tea and one drink but no other caffeine, denies stimulants or recreational drugs. She denies chest pain, shortness of breath, passing out. She has a long-standing history of the same symptoms. Past medical history of thyroidectomy, PUD, recently treated for H. pylori and on Pepcid. Denies medical history otherwise. TRAVEL OUTSIDE OF THE [place] IN LAST 30 DAYS: No - Related Data Allergies/Adverse Reactions: Cephalosporins Allergy (Severe, Verified 03/26/18 09:19) Throat itching and swelling ciprofloxacin [From Cipro] Allergy (Severe, Verified 03/26/18 09:19) Blistering in mouth and throat ethyl alcohol Allergy (Severe, Verified 03/26/18 09:19) Shortness of Breath, cough, difficulty breathing fluticasone [From Flonase] Allergy (Severe, Verified 03/26/18 09:19) Migraine, nose bleed latex Allergy (Severe, Verified 03/26/18 09:19) RASH Penicillins Allergy (Severe, Verified 03/26/18 09:19) Throat swelling, difficulty breathing cephalexin [From Keflex] Allergy (Verified 03/26/18 09:19) Throat swelling, difficulty breathing dexlansoprazole [From Dexilant] Allergy (Verified 03/26/18 09:19) erythromycin base [From Erythrocin] Allergy (Verified 03/26/18 09:19) Hives fluoxetine [From Prozac] Allergy (Verified 03/26/18 09:19) prednisone Allergy (Verified 03/26/18 09:19) Tachycardia sertraline [From Zoloft] Allergy (Verified 03/26/18 09:19) aspirin Adverse Reaction (Verified 03/26/18 09:19) N&V Sulfa (Sulfonamide Antibiotics) Adverse Reaction (Verified 03/26/18 09:19) See Comments IV dye Allergy (Uncoded 03/26/18 09:19) arrhythmia Past Medical History - General Information source: Patient - Social History Smoking Status: Never Smoker Frequency of alcohol use: None Drug Abuse: None Lives with: Family Family History: Reviewed & Not Pertinent - Past Medical History Cardiac Medical History: Reports: Hx Heart Attack - 2010, Hx Hypertension - HX OF Denies: Hx Coronary Artery Disease Pulmonary Medical History: Reports: Hx Asthma, Hx COPD - INHALERS Denies: Hx Bronchitis, Hx Pneumonia Neurological Medical History: Reports: Hx Migraine, Hx Seizures - NO MEDS - LAST 2013 - NOT CURRENT. Denies: Hx Cerebrovascular Accident Renal/ Medical History: Denies: Hx Peritoneal Dialysis Musculoskeletal Medical History: Denies Hx Arthritis Past Surgical History: Reports: Hx Cholecystectomy, Hx Gynecologic Surgery, Hx Hysterectomy, Hx Nose Surgery, Hx Tubal Ligation - Immunizations Immunizations up to date: Yes Hx Diphtheria, Pertussis, Tetanus Vaccination: No Review of Systems - Review of Systems Constitutional: No symptoms reported EENT: No symptoms reported Cardiovascular: See HPI Respiratory: No symptoms reported Gastrointestinal: No symptoms reported Genitourinary: No symptoms reported Female Genitourinary: No symptoms reported Musculoskeletal: No symptoms reported Skin: No symptoms reported Hematologic/Lymphatic: No symptoms reported Neurological/Psychological: No symptoms reported Physical Exam - Vital signs Vitals: Temp Pulse BP Pulse Ox 98.4 F 104 H 139/84 H 99 05/05/18 22:43 05/05/18 22:43 05/05/18 22:43 05/05/18 22:43 - Notes Notes: GENERAL: Alert, interacts well. No acute distress. HEAD: Normocephalic, atraumatic. EYES: Pupils equal, round, and reactive to light. Extraocular movements intact. ENT: Oral mucosa moist, tongue midline. Oropharynx unremarkable. Airway patent. Nares patent, no nasal septal hematoma, TM's intact. NECK: Full range of motion. Supple. Trachea midline. LUNGS: Clear to auscultation bilaterally, no wheezes, rales, or rhonchi. No respiratory distress. HEART: Regular rate and rhythm. No murmur ABDOMEN: Soft, non-tender. Non-distended. Bowel sounds present in all 4 quadrants. GENITOURINARY: Deferred EXTREMITIES: Moves all 4 extremities spontaneously. No edema, normal radial and dorsalis pedis pulses bilaterally. No cyanosis. BACK: no cervical, thoracic, lumbar midline tenderness. No saddle anesthesia, normal distal neurovascular exam. NEUROLOGICAL: Alert and oriented x3. Normal speech. [cranial nerves II through XII grossly intact]. PSYCH: Patient talks constantly and rapidly, excitedly SKIN: Warm, dry, normal turgor. No rashes or lesions noted. Course - Re-evaluation Re-evalutation: I have seen this patient before for the same complaint, she has had this same complaint many times in the past. No concerning change from prior. I have evaluated the patient EKG sinus rhythm with no T wave inversions or ST segment changes in consecutive leads, borderline Q waves inferiorly, this is unchanged from prior. Patient without chest pain, has no current palpitations. On monitoring she has no ectopic beats or concerning arrhythmias. Chemistry is unremarkable, CBC unremarkable, hCG is negative. Patient is very anxious to know her chemistry, specifically her calcium, she was very excited to see the normal range calcium. She is asking to leave. She asks for a report to be provided of her chemistry, this was given to her. 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 Discussed return precautions. Patient states satisfaction and agreement with plan. Stable at time of discharge. - Vital Signs Vital signs: Temp Pulse Resp BP Pulse Ox 97.7 F 97 18 131/92 H 99 05/06/18 02:30 05/06/18 02:30 05/06/18 02:30 05/06/18 02:30 05/06/18 02:30 - Laboratory Result Diagrams: 05/06/18 01:21 05/06/18 01:21 Laboratory results interpreted by me: 05/06/18 01:21 RDW 16.9 H Eosinophils % 6.9 H Discharge - Discharge Clinical Impression: Palpitations Condition: Stable Disposition: HOME, SELF-CARE Additional Instructions: Your monitoring and workup are reassuring and do not show any concerning abnormality at this time. Follow-up with your provider for continued management. Return if you worsen including chest pain, passing out, difficulty breathing, or any other concerning or worsening symptoms. Referrals: SUDHAKAR GRIFFITH PA-C [Primary Care Provider] - Follow up as needed
[2018-05-06 01:31] LABS: ABSOLUTE BASOPHILS # (AUTO) 0.2 10^3/uL (0.0-0.2); ABSOLUTE EOSINOPHILS # (AUTO) 0.6 10^3/uL (0.0-0.6); ABSOLUTE LYMPHOCYTES (AUTO) 2.5 10^3/uL (0.5-4.7); ABSOLUTE MONOCYTES (AUTO) 0.7 10^3/uL (0.1-1.4); ABSOLUTE NEUT (AUTO) 5.4 10^3/uL (1.7-8.2); BASOPHILS % (AUTO) 1.6 % (0-2); EOSINOPHILS % (AUTO) 6.9 % (0-6); HEMOGLOBIN 12.3 g/dL (12.0-15.5); LYMPHOCYTES % (AUTO) 26.3 % (13-45); MEAN CORPUSCULAR HEMOGLOBIN 28.9 pg (27.0-33.4); MEAN CORPUSCULAR HGB CONC 33.2 g/dL (32.0-36.0); MEAN CORPUSCULAR VOLUME 87 fl (80-97); MONOCYTES % (AUTO) 7.6 % (3-13); PLATELET COUNT 283 10^3/uL (150-450); RED BLOOD COUNT 4.25 10^6/uL (3.72-5.28); RED CELL DISTRIBUTION WIDTH 16.9 % (11.5-14.0); SEGMENTED NEUTROPHILS % (AUTO) 57.6 % (42-78); TOTAL CELLS COUNTED % (AUTO) 100 %; WHITE BLOOD COUNT 9.4 10^3/uL (4.0-10.5)
[2018-05-06 01:46] LABS: ANION GAP 9 (5-19); BLOOD UREA NITROGEN 10 mg/dL (7-20); CALCIUM 9.4 mg/dL (8.4-10.2); CARBON DIOXIDE 24 mmol/L (22-30); CHLORIDE 105 mmol/L (98-107); GLUCOSE 101 mg/dL (75-110); POTASSIUM 3.9 mmol/L (3.6-5.0); SODIUM 137.7 mmol/L (137-145)
[2018-05-06 02:31] VITALS: BP 131/92
== END 2018-05-06 02:30 | disposition home or self-care (01) ==
LOC: ER 21:33
DX: R00.2 Palpitations (principal); I10 Essential (primary) hypertension; Z88.3 Allergy status to other anti-infective agents; Z91.040 Latex allergy status; Z88.0 Allergy status to penicillin; Z88.6 Allergy status to analgesic agent; Z88.2 Allergy status to sulfonamides; Z90.49 Acquired absence of other specified parts of digestive tract; Z90.710 Acquired absence of both cervix and uterus; I25.2 Old myocardial infarction
CPT/HCPCS: 36415; 80048; 84703; 85025; 93005; 93010; 99285

== ENCOUNTER 2018-05-08 16:36 | Emergency (ER) | payer BC, OTHER ==
--- NOTE | 2018-05-08 17:09 | ER Document Report ---
ED Medical Screen (RME) - General Chief Complaint: Palpitations Stated Complaint: PALPITATIONS Time Seen by Provider: 05/08/18 17:09 Primary Care Provider: SUDHAKAR GRIFFITH PA-C [Primary Care Provider] - Follow up as needed TRAVEL OUTSIDE OF THE [place] IN LAST 30 DAYS: No - HPI Notes: 05/08/18 17:09 Palpitations - Related Data Allergies/Adverse Reactions: Cephalosporins Allergy (Severe, Verified 03/26/18 09:19) Throat itching and swelling ciprofloxacin [From Cipro] Allergy (Severe, Verified 03/26/18 09:19) Blistering in mouth and throat ethyl alcohol Allergy (Severe, Verified 03/26/18 09:19) Shortness of Breath, cough, difficulty breathing fluticasone [From Flonase] Allergy (Severe, Verified 03/26/18 09:19) Migraine, nose bleed latex Allergy (Severe, Verified 03/26/18 09:19) RASH Penicillins Allergy (Severe, Verified 03/26/18 09:19) Throat swelling, difficulty breathing cephalexin [From Keflex] Allergy (Verified 03/26/18 09:19) Throat swelling, difficulty breathing dexlansoprazole [From Dexilant] Allergy (Verified 03/26/18 09:19) erythromycin base [From Erythrocin] Allergy (Verified 03/26/18 09:19) Hives fluoxetine [From Prozac] Allergy (Verified 03/26/18 09:19) prednisone Allergy (Verified 03/26/18 09:19) Tachycardia sertraline [From Zoloft] Allergy (Verified 03/26/18 09:19) aspirin Adverse Reaction (Verified 03/26/18 09:19) N&V Sulfa (Sulfonamide Antibiotics) Adverse Reaction (Verified 03/26/18 09:19) See Comments IV dye Allergy (Uncoded 03/26/18 09:19) arrhythmia Past Medical History - Social History Chew tobacco use (# tins/day): No Frequency of alcohol use: None Drug Abuse: None Family history: None - Past Medical History Cardiac Medical History: Reports: Hx Heart Attack - 2010, Hx Hypertension - HX OF Denies: Hx Coronary Artery Disease Pulmonary Medical History: Reports: Hx Asthma, Hx COPD - INHALERS Denies: Hx Bronchitis, Hx Pneumonia Neurological Medical History: Reports: Hx Migraine, Hx Seizures - NO MEDS - LAST 2013 - NOT CURRENT. Denies: Hx Cerebrovascular Accident Renal/ Medical History: Denies: Hx Peritoneal Dialysis Musculoskeltal Medical History: Denies Hx Arthritis Past Surgical History: Reports: Hx Cholecystectomy, Hx Gynecologic Surgery, Hx Hysterectomy, Hx Nose Surgery, Hx Tubal Ligation - Immunizations Immunizations up to date: Yes Hx Diphtheria, Pertussis, Tetanus Vaccination: No History of Influenza Vaccine for 11/2016 - 04/2017 Season: No Physical Exam - Vital signs Vitals: Temp Pulse Resp BP Pulse Ox 98.1 F 110 H 18 140/103 H 100 05/08/18 16:39 05/08/18 16:39 05/08/18 16:39 05/08/18 16:39 05/08/18 16:39 Course - Vital Signs Vital signs: Temp Pulse Resp BP Pulse Ox 98.1 F 110 H 18 140/103 H 100 05/08/18 16:39 05/08/18 16:39 05/08/18 16:39 05/08/18 16:39 05/08/18 16:39 Doctor's Discharge - Discharge Referrals: SUDHAKAR GRIFFITH PA-C [Primary Care Provider] - Follow up as needed
[2018-05-08 18:10] LABS: ABSOLUTE BASOPHILS # (AUTO) 0.1 10^3/uL (0.0-0.2); ABSOLUTE EOSINOPHILS # (AUTO) 0.6 10^3/uL (0.0-0.6); ABSOLUTE MONOCYTES (AUTO) 0.6 10^3/uL (0.1-1.4); ABSOLUTE NEUT (AUTO) 5.4 10^3/uL (1.7-8.2); EOSINOPHILS % (AUTO) 7.3 % (0-6); HEMATOCRIT 38.6 % (36.0-47.0); HEMOGLOBIN 13.2 g/dL (12.0-15.5); LYMPHOCYTES % (AUTO) 23.5 % (13-45); MEAN CORPUSCULAR HEMOGLOBIN 29.8 pg (27.0-33.4); MEAN CORPUSCULAR HGB CONC 34.2 g/dL (32.0-36.0); MEAN CORPUSCULAR VOLUME 87 fl (80-97); MONOCYTES % (AUTO) 6.8 % (3-13); PLATELET COUNT 281 10^3/uL (150-450); RED BLOOD COUNT 4.42 10^6/uL (3.72-5.28); SEGMENTED NEUTROPHILS % (AUTO) 61.4 % (42-78); TOTAL CELLS COUNTED % (AUTO) 100 %; WHITE BLOOD COUNT 8.7 10^3/uL (4.0-10.5)
[2018-05-08 18:22] LABS: ALANINE AMINOTRANSFERASE 37 U/L (9-52); ALBUMIN 4.8 g/dL (3.5-5.0); ALKALINE PHOSPHATASE 91 U/L (38-126); ANION GAP 11 (5-19); ASPARTATE AMINO TRANSFERASE 24 U/L (14-36); BILIRUBIN,DIRECT 0.1 mg/dL (0.0-0.4); BILIRUBIN,TOTAL 0.3 mg/dL (0.2-1.3); BLOOD UREA NITROGEN 13 mg/dL (7-20); CALCIUM 10.1 mg/dL (8.4-10.2); CARBON DIOXIDE 24 mmol/L (22-30); CHLORIDE 105 mmol/L (98-107); CREATINE KINASE 170 U/L (30-135); GLUCOSE 93 mg/dL (75-110); POTASSIUM 4.3 mmol/L (3.6-5.0); SODIUM 139.8 mmol/L (137-145); TOTAL PROTEIN 8.2 g/dL (6.3-8.2)
--- NOTE | 2018-05-08 18:32 | RADIOLOGY REPORT (SQ) ---
EXAM DESCRIPTION: CHEST SINGLE VIEW COMPLETED DATE/TIME: 05/08/2018 6:11 pm REASON FOR STUDY: palp COMPARISON: 03/22/2018 EXAM PARAMETERS: NUMBER OF VIEWS: One view. TECHNIQUE: Single frontal radiographic view of the chest acquired. RADIATION DOSE: NA LIMITATIONS: None. FINDINGS: LUNGS AND PLEURA: No opacities, masses or pneumothorax. No pleural effusion. MEDIASTINUM AND HILAR STRUCTURES: No masses. Contour normal. HEART AND VASCULAR STRUCTURES: Heart normal in size. Normal vasculature. BONES: No acute findings. HARDWARE: None in the chest. OTHER: No other significant finding. IMPRESSION: NO ACUTE RADIOGRAPHIC FINDING IN THE CHEST. TECHNICAL DOCUMENTATION: JOB ID: [id number] [employer]- All Rights Reserved Reading location - IP/workstation name: [email or web address]
[2018-05-08 18:33] LABS: CREATINE KINASE MB 0.39 ng/mL (<4.55)
[2018-05-08 18:34] LABS: TROPONIN I < 0.012 ng/mL
[2018-05-08 18:38] LABS: FREE T3 4.11 pg/mL (2.77-5.27); FREE T4 (FREE THYROXINE) 1.63 ng/dL (0.78-2.19)
[2018-05-08 19:00] VITALS: BP 126/74
--- NOTE | 2018-05-08 21:45 | ER Document Report ---
Entered by ANNAMARIE DE LA ROSA SCRIBE 05/08/18 1822 Acting as scribe for:RAUL ELLIS MD ED General - General Chief Complaint: Palpitations Stated Complaint: PALPITATIONS Time Seen by Provider: 05/08/18 17:09 Primary Care Provider: SUDHAKAR GRIFFITH PA-C [Primary Care Provider] - Follow up as needed Mode of Arrival: Ambulatory Information source: Patient Notes: Patient is a 43-year-old female with a recent thyroidectomy, CAD, COPD and a history of an MA presents to the emergency department complaining of heart palpitations and numbness and tingling sensations onset 1hr prior to arrival. She describes her palpitations as her heart racing accompanied by chest pressure which lasts for approximately 45 minutes, after which causes her to feel tired and have some chest soreness. She describes her numbness and tingling sensations as "sticking ice in my fingers" and radiating up her bilateral arms and into her bilateral legs. She reports speaking with her financial supervisor who advised she come to the emergency department to have her calcium and thyroid levels checked. Patient reports she had a thyroidectomy and partial parathyroidectomy on 04/14/2018. She states she has a follow-up appointment on 05/04/2018. She reports her last stress test being in August 2017. TRAVEL OUTSIDE OF THE [place] IN LAST 30 DAYS: No - Related Data Allergies/Adverse Reactions: Cephalosporins Allergy (Severe, Verified 03/26/18 09:19) Throat itching and swelling ciprofloxacin [From Cipro] Allergy (Severe, Verified 03/26/18 09:19) Blistering in mouth and throat ethyl alcohol Allergy (Severe, Verified 03/26/18 09:19) Shortness of Breath, cough, difficulty breathing fluticasone [From Flonase] Allergy (Severe, Verified 03/26/18 09:19) Migraine, nose bleed latex Allergy (Severe, Verified 03/26/18 09:19) RASH Penicillins Allergy (Severe, Verified 03/26/18 09:19) Throat swelling, difficulty breathing cephalexin [From Keflex] Allergy (Verified 03/26/18 09:19) Throat swelling, difficulty breathing dexlansoprazole [From Dexilant] Allergy (Verified 03/26/18 09:19) erythromycin base [From Erythrocin] Allergy (Verified 03/26/18 09:19) Hives fluoxetine [From Prozac] Allergy (Verified 03/26/18 09:19) prednisone Allergy (Verified 03/26/18 09:19) Tachycardia sertraline [From Zoloft] Allergy (Verified 03/26/18 09:19) aspirin Adverse Reaction (Verified 03/26/18 09:19) N&V Sulfa (Sulfonamide Antibiotics) Adverse Reaction (Verified 03/26/18 09:19) See Comments IV dye Allergy (Uncoded 03/26/18 09:19) arrhythmia Past Medical History - General Information source: Patient - Social History Smoking Status: Current Every Day Smoker Chew tobacco use (# tins/day): No Frequency of alcohol use: None Drug Abuse: None Family History: Reviewed & Not Pertinent Patient has suicidal ideation: No Patient has homicidal ideation: No - Past Medical History Cardiac Medical History: Reports: Hx Heart Attack - 2009, Hx Hypertension - HX OF Pulmonary Medical History: Reports: Hx Asthma, Hx COPD - INHALERS Neurological Medical History: Reports: Hx Migraine, Hx Seizures - NO MEDS - LAST 2013 - NOT CURRENT. Denies: Hx Cerebrovascular Accident Renal/ Medical History: Denies: Hx Peritoneal Dialysis Musculoskeletal Medical History: Denies Hx Arthritis Past Surgical History: Reports: Hx Cholecystectomy, Hx Gynecologic Surgery, Hx Hysterectomy, Hx Nose Surgery, Hx Tubal Ligation - Immunizations Immunizations up to date: Yes Hx Diphtheria, Pertussis, Tetanus Vaccination: No Review of Systems - Review of Systems Constitutional: No symptoms reported EENT: No symptoms reported Cardiovascular: See HPI, Palpitations, Heart racing Respiratory: No symptoms reported Gastrointestinal: No symptoms reported Genitourinary: No symptoms reported Female Genitourinary: No symptoms reported Musculoskeletal: No symptoms reported Skin: No symptoms reported Hematologic/Lymphatic: No symptoms reported Neurological/Psychological: No symptoms reported -: Yes All other systems reviewed and negative Physical Exam - Vital signs Vitals: Temp Pulse Resp BP Pulse Ox 98.1 F 110 H 18 140/103 H 100 05/08/18 16:39 05/08/18 16:39 05/08/18 16:39 05/08/18 16:39 05/08/18 16:39 - Notes Notes: GENERAL: Alert, appears somewhat anxious, interacts well. No acute distress. HEAD: Normocephalic, atraumatic. EYES: Pupils equal, round, and reactive to light. Extraocular movements intact. ENT: Oral mucosa moist, tongue midline. NECK: Full range of motion. Supple. Trachea midline. LUNGS: Clear to auscultation bilaterally, no wheezes, rales, or rhonchi. No respiratory distress. HEART: Regular rate and rhythm. No murmurs, gallops, or rubs. ABDOMEN: Soft, obese non-tender. Non-distended. Bowel sounds present in all 4 quadrants. No guarding, rigidity, or rebound. EXTREMITIES: Moves all 4 extremities spontaneously. No edema, radial and dorsalis pedis pulses 2/4 bilaterally. No cyanosis. NEUROLOGICAL: Alert and oriented x3. Normal speech. PSYCH: Appears somewhat anxious. SKIN: Warm, dry, normal turgor. No rashes or lesions noted. Course - Vital Signs Vital signs: Temp Pulse Resp BP Pulse Ox 98.1 F 110 H 17 126/74 H 98 05/08/18 16:39 05/08/18 16:39 05/08/18 18:25 05/08/18 18:25 05/08/18 18:25 - Laboratory Result Diagrams: 05/08/18 17:55 05/08/18 17:55 Laboratory results interpreted by me: 05/08/18 05/08/18 17:55 17:55 RDW 17.0 H Eosinophils % 7.3 H Creatine Kinase 170 H - EKG Interpretation by Ut EKG shows normal: Sinus rhythm, [place], Intervals, ST-T Waves. abnormal: QRS Complexes - Borderline inferior Q waves Rate: Tachycardia - 107 Discharge - Discharge Clinical Impression: Heart palpitations, Paresthesias Condition: Stable Disposition: HOME, SELF-CARE Additional Instructions: Palpitations (Irregular/Rapid Heartrate) Irregular or rapid heartbeat is called "palpitation." To diagnose the cause of palpitation, we have to "catch it in the act" with an EKG. Sinus Tachycardia: This is a rapid (but NORMAL) rhythm that can be due to fever, pain, anxiety, lack of sleep, over-exertion, or drugs. Cold medications, caffeine, and diet pills are particularly likely to cause tachycardia. Usually, all that's required is rest, reassurance, and avoiding caffeine, alcohol, nicotine, and unnecessary medicines. Paroxysmal Atrial Tachycardia (PAT): This abnormally rapid heartbeat is caused by a "short circuit" in the electrical system of the heart. It is not dangerous, unless other heart disease is present. These attacks of PAT may occur occasionally for years. Medication is available for treatment. Paroxysmal Atrial Fibrillation or Atrial Flutter: This is irregular electrical activity in the upper heart chamber. These abnormal rhythms often occur with valve disease or in hearts damaged by hardening of the arteries. These rhythms usually require further testing, for example a cardiac echo. Premature Beats: Extra beats occur more commonly after caffeine, nicotine, alcohol, cold pills, diet pills. Emotional stress or fatigue also provoke them. Extra beats are only dangerous when heart disease is present. They usually need no treatment. If they're frequent, or if evidence of heart disease dev elops, medication can be given to suppress them. If we were unable to "catch" the palpitations on EKG, you should try to get an EKG immediately if the symptoms begin again. Contact the physician at once if you develop persistent lightheadedness, shortness of breath, chest pain, or swelling of the ankles. Your thyroid hormone levels, parathyroid hormone levels, and calcium levels were normal. Take copies of your lab work with you when you follow-up with your financial supervisor. Talk with your primary care provider or your financial supervisor about wearing a Holter monitor, if they think it may be of benefit. RETURN TO THE EMERGENCY ROOM IF ANY NEW OR WORSENING SYMPTOMS. Referrals: SUDHAKAR GRIFFITH PA-C [Primary Care Provider] - Follow up as needed Scribe Attestation: 05/08/18 18:51 I personally performed the services described in the documentation, reviewed and edited the documentation which was dictated to the scribe in my presence, and it accurately records my words and actions. I personally performed the services described in the documentation, reviewed and edited the documentation which was dictated to the scribe in my presence, and it accurately records my words and actions.
--- NOTE | 2018-05-09 00:14 | EKG REPORT ---
SEVERITY:- BORDERLINE ECG - SINUS TACHYCARDIA BORDERLINE INFERIOR Q WAVES : Confirmed by: Tomasz Mir 09-May-2018 00:14:05
== END 2018-05-08 19:12 | disposition home or self-care (01) ==
LOC: ER 16:36
DX: R00.2 Palpitations (principal); R20.0 Anesthesia of skin; R07.9 Chest pain, unspecified; I25.10 Atherosclerotic heart disease of native coronary artery without angina pectoris; J44.9 Chronic obstructive pulmonary disease, unspecified; I25.2 Old myocardial infarction; Z98.890 Other specified postprocedural states; F17.200 Nicotine dependence, unspecified, uncomplicated; I10 Essential (primary) hypertension
CPT/HCPCS: 36415; 71045; 80053; 82550; 82553; 83970; 84439; 84481; 84484; 85025; 93005; 93010; 99285

== ENCOUNTER 2018-05-11 12:11 | Emergency (ER) | payer BC ==
--- NOTE | 2018-05-11 13:02 | ER Document Report ---
ED Medical Screen (RME) - General Chief Complaint: Leg Pain Stated Complaint: RIGHT LEG NUMBNESS Time Seen by Provider: 05/11/18 12:44 Primary Care Provider: SUDHAKAR GRIFFITH PA-C [Primary Care Provider] - Follow up as needed Notes: Patient is a 43-year-old female with history of multiple medical issues that presents to the emergency department for chief complaint of pain and numbness in her right leg. Patient reports that this started last night, which felt sharp pain going down her leg to her toes, now she has numbness in her thigh, she is been able to walk, she was seen by advised to come to the ED today to have this evaluated denies any leg swelling, she recently did injure her ankle a few weeks ago. ROS: Other than noted above, the 12 point review of systems was reviewed with the patient and were negative, all pertinent findings are included in the HPI. PHYSICAL EXAMINATION: Vital signs reviewed. GENERAL: Well-appearing, well-nourished and in no acute distress. HEAD: Atraumatic, normocephalic. EYES: Pupils equal round extraocular movements intact, conjunctiva are normal. ENT: Nares patent NECK: Normal range of motion CV: Heart rate tachycardic, regular rhythm LUNGS: No respiratory distress Musculoskeletal: Normal range of motion, good range of motion of all extremities, complete muscular skeletal exam is difficult in triage, will defer to provider when patient is in the room NEUROLOGICAL: Normal speech PSYCH: Normal mood, normal affect. MDM: Patient seen and examined for rapid initial assessment. Vital signs reviewed. A comprehensive ED assessment and evaluation of the patient, analysis of test results and completion of the medical decision making process will be conducted by additional ED providers. *Note is created using voice recognition software and may contain spelling, syntax or grammatical errors. TRAVEL OUTSIDE OF THE [place] IN LAST 30 DAYS: No - Related Data Allergies/Adverse Reactions: Cephalosporins Allergy (Severe, Verified 05/11/18 12:56) Throat itching and swelling ciprofloxacin [From Cipro] Allergy (Severe, Verified 05/11/18 12:56) Blistering in mouth and throat ethyl alcohol Allergy (Severe, Verified 05/11/18 12:56) Shortness of Breath, cough, difficulty breathing fluticasone [From Flonase] Allergy (Severe, Verified 05/11/18 12:56) Migraine, nose bleed latex Allergy (Severe, Verified 05/11/18 12:56) RASH Penicillins Allergy (Severe, Verified 05/11/18 12:56) Throat swelling, difficulty breathing cephalexin [From Keflex] Allergy (Verified 05/11/18 12:56) Throat swelling, difficulty breathing dexlansoprazole [From Dexilant] Allergy (Verified 05/11/18 12:56) erythromycin base [From Erythrocin] Allergy (Verified 05/11/18 12:56) Hives fluoxetine [From Prozac] Allergy (Verified 05/11/18 12:56) prednisone Allergy (Verified 05/11/18 12:56) Tachycardia sertraline [From Zoloft] Allergy (Verified 05/11/18 12:56) aspirin Adverse Reaction (Verified 05/11/18 12:56) N&V Sulfa (Sulfonamide Antibiotics) Adverse Reaction (Verified 05/11/18 12:56) See Comments IV dye Allergy (Uncoded 05/11/18 12:56) arrhythmia Past Medical History - Social History Chew tobacco use (# tins/day): No Frequency of alcohol use: None Drug Abuse: None Family history: None - Past Medical History Cardiac Medical History: Reports: Hx Heart Attack - 2009, Hx Hypertension - HX OF Denies: Hx Coronary Artery Disease Pulmonary Medical History: Reports: Hx Asthma, Hx COPD - INHALERS Denies: Hx Bronchitis, Hx Pneumonia Neurological Medical History: Reports: Hx Migraine, Hx Seizures - NO MEDS - LAST 2013 - NOT CURRENT. Denies: Hx Cerebrovascular Accident Renal/ Medical History: Denies: Hx Peritoneal Dialysis Musculoskeltal Medical History: Denies Hx Arthritis Past Surgical History: Reports: Hx Cholecystectomy, Hx Gynecologic Surgery, Hx Hysterectomy, Hx Nose Surgery, Hx Thyroid Surgery, Hx Tubal Ligation - Immunizations Immunizations up to date: Yes Hx Diphtheria, Pertussis, Tetanus Vaccination: No History of Influenza Vaccine for 11/2016 - 04/2017 Season: No Physical Exam - Vital signs Vitals: Temp Pulse Resp BP Pulse Ox 97.6 F 111 H 18 169/95 H 100 05/11/18 12:16 05/11/18 12:16 05/11/18 12:16 05/11/18 12:16 05/11/18 12:16 Course - Vital Signs Vital signs: Temp Pulse Resp BP Pulse Ox 97.6 F 111 H 18 169/95 H 100 05/11/18 12:16 05/11/18 12:16 05/11/18 12:16 05/11/18 12:16 05/11/18 12:16 Doctor's Discharge - Discharge Referrals: SUDHAKAR GRIFFITH PA-C [Primary Care Provider] - Follow up as needed
[2018-05-11 13:49] LABS: ABSOLUTE EOSINOPHILS # (AUTO) 0.5 10^3/uL (0.0-0.6); ABSOLUTE MONOCYTES (AUTO) 0.5 10^3/uL (0.1-1.4); ABSOLUTE NEUT (AUTO) 5.3 10^3/uL (1.7-8.2); BASOPHILS % (AUTO) 0.6 % (0-2); EOSINOPHILS % (AUTO) 6.5 % (0-6); HEMATOCRIT 40.3 % (36.0-47.0); HEMOGLOBIN 13.8 g/dL (12.0-15.5); MEAN CORPUSCULAR HEMOGLOBIN 29.7 pg (27.0-33.4); MEAN CORPUSCULAR HGB CONC 34.4 g/dL (32.0-36.0); MEAN CORPUSCULAR VOLUME 87 fl (80-97); MONOCYTES % (AUTO) 5.7 % (3-13); PLATELET COUNT 232 10^3/uL (150-450); RED BLOOD COUNT 4.66 10^6/uL (3.72-5.28); RED CELL DISTRIBUTION WIDTH 16.8 % (11.5-14.0); SEGMENTED NEUTROPHILS % (AUTO) 63.2 % (42-78); TOTAL CELLS COUNTED % (AUTO) 100 %; WHITE BLOOD COUNT 8.3 10^3/uL (4.0-10.5)
[2018-05-11 13:53] LABS: APPEARANCE,URINE CLEAR; BILIRUBIN,URINE NEGATIVE (NEGATIVE); COLOR,URINE STRAW; GLUCOSE, URINE NEGATIVE (NEGATIVE); KETONES,URINE NEGATIVE (NEGATIVE); LEUKOCYTE ESTERASE,URINE TRACE (NEGATIVE); NITRITE,URINE NEGATIVE (NEGATIVE); PROTEIN,URINE NEGATIVE (NEGATIVE); URINE SPECIFIC GRAVITY 1.005; UROBILINOGEN,URINE NEGATIVE mg/dL (<2.0)
[2018-05-11 14:05] LABS: ALANINE AMINOTRANSFERASE 23 U/L (9-52); ALBUMIN 4.9 g/dL (3.5-5.0); ALKALINE PHOSPHATASE 80 U/L (38-126); ANION GAP 14 (5-19); ASPARTATE AMINO TRANSFERASE 20 U/L (14-36); BILIRUBIN,DIRECT 0.3 mg/dL (0.0-0.4); BILIRUBIN,TOTAL 0.5 mg/dL (0.2-1.3); BLOOD UREA NITROGEN 7 mg/dL (7-20); CARBON DIOXIDE 22 mmol/L (22-30); CHLORIDE 104 mmol/L (98-107); GLUCOSE 77 mg/dL (75-110); POTASSIUM 4.1 mmol/L (3.6-5.0); SODIUM 140.4 mmol/L (137-145); TOTAL PROTEIN 7.9 g/dL (6.3-8.2)
--- NOTE | 2018-05-11 15:33 | RADIOLOGY REPORT (SQ) ---
EXAM DESCRIPTION: CT LUMBAR SPINE WITHOUT COMPLETED DATE/TIME: 05/11/2018 3:18 pm REASON FOR STUDY: right radicular pain, numbness COMPARISON: None. TECHNIQUE: Axial images acquired through the lumbar spine without intravenous contrast. Images revi ewed with lung, soft tissue and bone windows. Reconstructed coronal and sagittal MPR images reviewed . All images stored on PACS. All CT scanners at this facility use dose modulation, iterative reconstruction, and/or weight based d osing when appropriate to reduce radiation dose to as low as reasonably achievable (ALARA). [facility]: Dose Right [facility]: CareDose [facility]: Dose Right [facility]: Teradose 4D [facility]: Shot Stats RADIATION DOSE: 21 mGy. LIMITATIONS: None. FINDINGS: SEGMENTATION: Normal. No transitional anatomy. ALIGNMENT: Minimal grade 1 anterolisthesis of L5 over S1 related to bilateral spondylolysis VERTEBRAL BODIES: No fractures. No dislocation. No acute findings. DISCS: The T12-L1, L1-2, L2-3, and L3-4 levels are unremarkable. At L4-5, there is minimal posterior disc bulging and very mild bilateral facet arthropathy without si gnificant central or foraminal stenosis. Bilateral L5 spondylolysis is present with bony sclerosis at the pars defects best shown on sagittal reconstructions 16 through 20, and 25 through 30. At L5-S1, minimal posterior disc bulging and mild bilateral facet and ligament hypertrophy is present without significant central or foraminal encroachment. PEDICLES, TRANSVERSE PROCESSES: Intact without fracture FACETS, POSTERIOR ELEMENTS: Bilateral L5 spondylolysis HARDWARE: None in the spine. SOFT TISSUES: No significant or acute finding in adjacent soft tissues. OTHER: No other significant finding. IMPRESSION: Minimal grade 1 anterolisthesis of L5 over S1 related to bilateral spondylolysis No significant central or foraminal stenosis. TECHNICAL DOCUMENTATION: JOB ID: [id number] Quality ID # [id number]: Final reports with documentation of one or more dose reduction techniques (e.g., Au tomated exposure control, adjustment of the mA and/or kV according to patient size, use of iterative reconstruction technique) 2010 [employer]- All Rights Reserved Reading location - IP/workstation name: [email or web address]
--- NOTE | 2018-05-11 16:26 | ER Document Report ---
ED Extremity Problem, Lower - General Chief Complaint: Leg Pain Stated Complaint: RIGHT LEG NUMBNESS Time Seen by Provider: 05/11/18 12:44 Primary Care Provider: SUDHAKAR GRIFFITH PA-C [Primary Care Provider] - Follow up as needed TRAVEL OUTSIDE OF THE [place] IN LAST 30 DAYS: No - HPI Notes: Patient is a 43-year-old female that presents to the emergency department for chief complaint of low back pain and right leg pain. Patient reports shooting pain from her low back down her right leg into her right foot. This all began today. She states she has some paresthesias over her lateral right thigh and the pain is currently not radiating past her knee. She denies any injury or trauma. She denies recent fever, chills, saddle anesthesia, bowel or bladder incontinence. She states she has had sciatica in the past as well as low back pain but has never had radiation down her leg before. She is able to ambulate. She does have muscle relaxers as well as Percocet at home but states she has not taken any of them recently. She states the symptoms were aggravated by movement and relieved some by holding still. Past Medical History: Hypothyroidism Past Surgical History: Cholecystectomy, hysterectomy, tubal ligation, thyroidectomy Social History: Denies drugs alcohol or tobacco Family History: Reviewed and noncontributory for presenting illness Allergies: Reviewed, see documented allergy list. REVIEW OF SYSTEMS: CONSTITUTIONAL : No fever No chills No diaphoresis No recent illness EENT: No vision changes No congestion No sore throat CARDIOVASCULAR: No chest pain No palpitations RESPIRATORY: No shortness of breath No cough No difficulty breathing GASTROINTESTINAL: No abdominal pain No nausea No vomiting No diarrhea GENITOURINARY: No dysuria No hematuria No difficulty urinating MUSCULOSKELETAL: back pain leg pain No arm pain SKIN: No rashes No lesions LYMPHATIC: No swollen, enlarged glands. NEUROLOGICAL: No lightheadedness No headache No weakness paresthesias PSYCHIATRIC: No anxiety No depression PHYSICAL EXAMINATION: Vital signs reviewed, nursing noted reviewed. GENERAL: Well-appearing, well-nourished and in no acute distress. HEAD: Atraumatic, normocephalic. EYES: Eyes appear normal, extraocular movements intact, sclera anicteric, conjunctiva are normal. ENT: nares patent, oropharynx clear without exudates. Moist mucous membranes. NECK: Normal range of motion, supple without lymphadenopathy LUNGS: Breath sounds clear to auscultation bilaterally and equal. No wheezes rales or rhonchi. HEART: Regular rate and rhythm without murmurs ABDOMEN: Soft, nontender, normoactive bowel sounds. No rebound, guarding, or rigidity. No masses appreciated. EXTREMITIES: Nontender, good range of motion, no pitting or edema. Back: Midline tenderness over L5 with no deformity, no paraspinal muscle tenderness NEUROLOGICAL: No focal neurological deficits. Moves all extremities spontaneously Motor and sensory grossly intact on exam. PSYCH: Normal mood, normal affect. SKIN: Warm, Dry, normal turgor, no rashes or lesions noted on exposed skin - Related Data Allergies/Adverse Reactions: Cephalosporins Allergy (Severe, Verified 05/11/18 12:56) Throat itching and swelling ciprofloxacin [From Cipro] Allergy (Severe, Verified 05/11/18 12:56) Blistering in mouth and throat ethyl alcohol Allergy (Severe, Verified 05/11/18 12:56) Shortness of Breath, cough, difficulty breathing fluticasone [From Flonase] Allergy (Severe, Verified 05/11/18 12:56) Migraine, nose bleed latex Allergy (Severe, Verified 05/11/18 12:56) RASH Penicillins Allergy (Severe, Verified 05/11/18 12:56) Throat swelling, difficulty breathing cephalexin [From Keflex] Allergy (Verified 05/11/18 12:56) Throat swelling, difficulty breathing dexlansoprazole [From Dexilant] Allergy (Verified 05/11/18 12:56) erythromycin base [From Erythrocin] Allergy (Verified 05/11/18 12:56) Hives fluoxetine [From Prozac] Allergy (Verified 05/11/18 12:56) prednisone Allergy (Verified 05/11/18 12:56) Tachycardia sertraline [From Zoloft] Allergy (Verified 05/11/18 12:56) aspirin Adverse Reaction (Verified 05/11/18 12:56) N&V Sulfa (Sulfonamide Antibiotics) Adverse Reaction (Verified 05/11/18 12:56) See Comments IV dye Allergy (Uncoded 05/11/18 12:56) arrhythmia Past Medical History - Social History Smoking Status: Current Every Day Smoker Chew tobacco use (# tins/day): No Frequency of alcohol use: None Drug Abuse: None Family History: Reviewed & Not Pertinent Patient has suicidal ideation: No Patient has homicidal ideation: No - Past Medical History Cardiac Medical History: Reports: Hx Heart Attack - 2010, Hx Hypertension - HX OF Denies: Hx Coronary Artery Disease Pulmonary Medical History: Reports: Hx Asthma, Hx COPD - INHALERS Denies: Hx Bronchitis, Hx Pneumonia Neurological Medical History: Reports: Hx Migraine, Hx Seizures - NO MEDS - LAST 2013 - NOT CURRENT. Denies: Hx Cerebrovascular Accident Renal/ Medical History: Denies: Hx Peritoneal Dialysis Musculoskeletal Medical History: Denies Hx Arthritis Past Surgical History: Reports: Hx Cholecystectomy, Hx Gynecologic Surgery, Hx Hysterectomy, Hx Nose Surgery, Hx Thyroid Surgery, Hx Tubal Ligation - Immunizations Immunizations up to date: Yes Hx Diphtheria, Pertussis, Tetanus Vaccination: No Physical Exam - Vital signs Vitals: Temp Pulse Resp BP Pulse Ox 97.6 F 111 H 18 169/95 H 100 05/11/18 12:16 05/11/18 12:16 05/11/18 12:16 05/11/18 12:16 05/11/18 12:16 Course - Re-evaluation Re-evalutation: 05/11/18 16:28 Vitals reviewed. Nursing notes reviewed. Patient is able to stand and ambulate. She has no focal neurologic deficits. She does have some midline tenderness over L5 and spondylolysis on CT scan. Patient symptoms are concerning for possible nerve impingement. She does not have any symptoms to suggest cauda equina or epidural abscess. Patient has muscle relaxer as well as Percocet at home which she was told to take as directed for symptomatic management. Patient has seen a neurosurgeon in the past for her back and will follow with her neurosurgeon if her symptoms are continuing. I did credit support counselor her on return precautions and she verbalized understanding. Stable at discharge. Lab work shows no electrolyte derangement. Laboratory 05/11/18 05/11/18 05/11/18 13:24 13:24 13:24 WBC 8.3 RBC 4.66 Hgb 13.8 Hct 40.3 MCV 87 MCH 29.7 MCHC 34.4 RDW 16.8 H Plt Count 232 Seg Neutrophils % 63.2 Lymphocytes % 24.0 Monocytes % 5.7 Eosinophils % 6.5 H Basophils % 0.6 Absolute Neutrophils 5.3 Absolute Lymphocytes 2.0 Absolute Monocytes 0.5 Absolute Eosinophils 0.5 Absolute Basophils 0.0 Sodium 140.4 Potassium 4.1 Chloride 104 Carbon Dioxide 22 Anion Gap 14 BUN 7 Creatinine 0.65 Est GFR ( Amer) > 60 Est GFR (Non-Af Amer) > 60 Glucose 77 Calcium 10.0 Total Bilirubin 0.5 Direct Bilirubin 0.3 Neonat Total Bilirubin Not Reportable Neonat Direct Bilirubin Not Reportable Neonat Indirect Bili Not Reportable AST 20 ALT 23 Alkaline Phosphatase 80 Total Protein 7.9 Albumin 4.9 Urine Color STRAW Urine Appearance CLEAR Urine pH 7.0 Ur Specific [place] 1.005 Urine Protein NEGATIVE Urine Glucose (UA) NEGATIVE Urine Ketones NEGATIVE Urine Blood NEGATIVE Urine Nitrite NEGATIVE Urine Bilirubin NEGATIVE Urine Urobilinogen NEGATIVE Ur Leukocyte Esterase TRACE H Urine WBC (Auto) 7 Urine RBC (Auto) 0 Squamous Epi Cells Auto 2 Urine Mucus (Auto) RARE Urine Ascorbic Acid NEGATIVE Lumbar Spine CT 05/11/18 13:01 IMPRESSION: Minimal grade 1 anterolisthesis of L5 over S1 related to bilateral spondylolysis No significant central or foraminal stenosis. - Vital Signs Vital signs: Temp Pulse Resp BP Pulse Ox 97.6 F 111 H 18 169/95 H 100 05/11/18 12:16 05/11/18 12:16 05/11/18 12:16 05/11/18 12:16 05/11/18 12:16 - Laboratory Result Diagrams: 05/11/18 13:24 05/11/18 13:24 Laboratory results interpreted by me: 05/11/18 05/11/18 13:24 13:24 RDW 16.8 H Eosinophils % 6.5 H Ur Leukocyte Esterase TRACE H Discharge - Discharge Clinical Impression: Right leg pain, Spondylolysis of lumbar region Condition: Stable Disposition: HOME, SELF-CARE Instructions: Low Back Pain ([facility]) Additional Instructions: Please return to the emergency department if you have any worsening, or concern of your symptoms. Please return to the emergency department if you develop chest pain, difficulty breathing, severe abdominal pain, or ongoing vomiting. Please follow-up with your primary care physician in 2-3 days and any other recommended physicians. If prescribed, take all medications as directed. If you have any questions or concerns do not hesitate to return the emergency department for evaluation. Referrals: SUDHAKAR GRIFFITH PA-C [Primary Care Provider] - Follow up in 3-5 days
[2018-05-11 16:50] VITALS: BP 125/81
== END 2018-05-11 16:56 | disposition home or self-care (01) ==
LOC: ER 12:11
DX: M47.9 Spondylosis, unspecified (principal); M54.5 Low back pain; M79.604 Pain in right leg; R20.0 Anesthesia of skin; I10 Essential (primary) hypertension; I25.2 Old myocardial infarction; J44.9 Chronic obstructive pulmonary disease, unspecified; Z88.1 Allergy status to other antibiotic agents; Z88.8 Allergy status to other drugs, medicaments and biological substances; Z91.040 Latex allergy status; Z88.0 Allergy status to penicillin; Z91.048 Other nonmedicinal substance allergy status; Z91.041 Radiographic dye allergy status
CPT/HCPCS: 36415; 72131; 80053; 81001; 85025; 99284

== ENCOUNTER 2018-07-01 13:04 | Emergency (ER) | payer BC ==
--- NOTE | 2018-07-01 13:31 | ER Document Report ---
ED Medical Screen (RME) - General Chief Complaint: Dizziness Stated Complaint: POSSIBLE ALLERGIC REACTION Time Seen by Provider: 07/01/18 13:21 Primary Care Provider: SUDHAKAR GRIFFITH PA-C [Primary Care Provider] - Follow up as needed Mode of Arrival: Ambulatory Information source: Patient Notes: 42-year-old female presented to ED for complaint of shortness of breath nausea dizziness lightheaded and rapid heartbeat. She states while at the doctor's office they gave her cures sulfate which she is never had before for her pernicious anemia. He states about a half an hour later her blood pressure went from 114/78 and 130/80 and a pulse increased a lot and she became very clammy. She states that the primary care doctor monitored her a while and she was okay so they discharged home said after she left she became nauseated lighthead and dizzy so she called the pharmacist and they said it could be a reaction to the ferrous sulfate so she came to the emergency room. She states she is has pain in her right shoulders pressures in her chest and she is feeling shaky. She states she has a history of anemia and back problems. Patient is alert and oriented respirations regular and unlabored lungs are clear to auscultation at this time. I have greeted and performed a rapid initial assessment of this patient. A comprehensive ED assessment and evaluation of the patient, analysis of test results and completion of medical decision making process will be conducted by an additional ED providers. Dictation of this chart was performed using voice recognition software; therefore, there may be some unintended grammatical errors. TRAVEL OUTSIDE OF THE [place] IN LAST 30 DAYS: No - Related Data Allergies/Adverse Reactions: Cephalosporins Allergy (Severe, Verified 07/01/18 13:05) Throat itching and swelling ciprofloxacin [From Cipro] Allergy (Severe, Verified 07/01/18 13:05) Blistering in mouth and throat ethyl alcohol Allergy (Severe, Verified 07/01/18 13:05) Shortness of Breath, cough, difficulty breathing fluticasone [From Flonase] Allergy (Severe, Verified 07/01/18 13:05) Migraine, nose bleed latex Allergy (Severe, Verified 07/01/18 13:05) RASH Penicillins Allergy (Severe, Verified 07/01/18 13:05) Throat swelling, difficulty breathing cephalexin [From Keflex] Allergy (Verified 07/01/18 13:05) Throat swelling, difficulty breathing dexlansoprazole [From Dexilant] Allergy (Verified 07/01/18 13:05) erythromycin base [From Erythrocin] Allergy (Verified 07/01/18 13:05) Hives fluoxetine [From Prozac] Allergy (Verified 07/01/18 13:05) prednisone Allergy (Verified 07/01/18 13:05) Tachycardia sertraline [From Zoloft] Allergy (Verified 07/01/18 13:05) aspirin Adverse Reaction (Verified 07/01/18 13:05) N&V Sulfa (Sulfonamide Antibiotics) Adverse Reaction (Verified 07/01/18 13:05) See Comments IV dye Allergy (Uncoded 07/01/18 13:05) arrhythmia Past Medical History - Social History Chew tobacco use (# tins/day): No Frequency of alcohol use: None Drug Abuse: None Family history: None - Past Medical History Cardiac Medical History: Reports: Hx Heart Attack - 2009, Hx Hypertension - HX OF Denies: Hx Coronary Artery Disease Pulmonary Medical History: Reports: Hx Asthma, Hx COPD - INHALERS Denies: Hx Bronchitis, Hx Pneumonia Neurological Medical History: Reports: Hx Migraine, Hx Seizures - NO MEDS - LAST 2013 - NOT CURRENT. Denies: Hx Cerebrovascular Accident Renal/ Medical History: Denies: Hx Peritoneal Dialysis Musculoskeltal Medical History: Denies Hx Arthritis Past Surgical History: Reports: Hx Cholecystectomy, Hx Gynecologic Surgery, Hx H ysterectomy, Hx Nose Surgery, Hx Thyroid Surgery, Hx Tubal Ligation - Immunizations Immunizations up to date: Yes Hx Diphtheria, Pertussis, Tetanus Vaccination: No History of Influenza Vaccine for 11/2016 - 04/2017 Season: No Physical Exam - Vital signs Vitals: Temp Pulse Resp BP Pulse Ox 97.5 F 93 16 144/87 H 98 07/01/18 13:09 07/01/18 13:09 07/01/18 13:09 07/01/18 13:09 07/01/18 13:09 Course - Vital Signs Vital signs: Temp Pulse Resp BP Pulse Ox 97.5 F 93 16 144/87 H 98 07/01/18 13:09 07/01/18 13:09 07/01/18 13:09 07/01/18 13:09 05/17/19 13:09 Doctor's Discharge - Discharge Referrals: SUDHAKAR GRIFFITH PA-C [Primary Care Provider] - Follow up as needed
[2018-07-01 13:52] LABS: ABSOLUTE BASOPHILS # (AUTO) 0.1 10^3/uL (0.0-0.2); ABSOLUTE EOSINOPHILS # (AUTO) 0.3 10^3/uL (0.0-0.6); ABSOLUTE MONOCYTES (AUTO) 0.5 10^3/uL (0.1-1.4); ABSOLUTE NEUT (AUTO) 6.5 10^3/uL (1.7-8.2); BASOPHILS % (AUTO) 0.7 % (0-2); HEMATOCRIT 40.1 % (36.0-47.0); HEMOGLOBIN 13.3 g/dL (12.0-15.5); LYMPHOCYTES % (AUTO) 21.4 % (13-45); MEAN CORPUSCULAR HEMOGLOBIN 28.1 pg (27.0-33.4); MEAN CORPUSCULAR HGB CONC 33.2 g/dL (32.0-36.0); MEAN CORPUSCULAR VOLUME 85 fl (80-97); MONOCYTES % (AUTO) 5.5 % (3-13); PLATELET COUNT 257 10^3/uL (150-450); RED BLOOD COUNT 4.73 10^6/uL (3.72-5.28); RED CELL DISTRIBUTION WIDTH 15.6 % (11.5-14.0); SEGMENTED NEUTROPHILS % (AUTO) 69.4 % (42-78); TOTAL CELLS COUNTED % (AUTO) 100 %; WHITE BLOOD COUNT 9.3 10^3/uL (4.0-10.5)
[2018-07-01 13:58] LABS: APPEARANCE,URINE CLEAR; BILIRUBIN,URINE NEGATIVE (NEGATIVE); COLOR,URINE STRAW; GLUCOSE, URINE NEGATIVE (NEGATIVE); KETONES,URINE NEGATIVE (NEGATIVE); LEUKOCYTE ESTERASE,URINE TRACE (NEGATIVE); NITRITE,URINE NEGATIVE (NEGATIVE); PROTEIN,URINE NEGATIVE (NEGATIVE); URINE SPECIFIC GRAVITY 1.005; UROBILINOGEN,URINE NEGATIVE mg/dL (<2.0)
[2018-07-01 14:36] LABS: ALANINE AMINOTRANSFERASE 19 U/L (9-52); ALBUMIN 4.5 g/dL (3.5-5.0); ALKALINE PHOSPHATASE 73 U/L (38-126); ANION GAP 12 (5-19); ASPARTATE AMINO TRANSFERASE 22 U/L (14-36); BILIRUBIN,DIRECT 0.3 mg/dL (0.0-0.4); BILIRUBIN,TOTAL 0.4 mg/dL (0.2-1.3); BLOOD UREA NITROGEN 10 mg/dL (7-20); CALCIUM 10.1 mg/dL (8.4-10.2); CARBON DIOXIDE 24 mmol/L (22-30); CHLORIDE 106 mmol/L (98-107); GLUCOSE 119 mg/dL (75-110); POTASSIUM 4.2 mmol/L (3.6-5.0); SODIUM 141.6 mmol/L (137-145); TOTAL PROTEIN 7.7 g/dL (6.3-8.2)
--- NOTE | 2018-07-01 15:04 | ER Document Report ---
ED General - General Chief Complaint: Dizziness Stated Complaint: POSSIBLE ALLERGIC REACTION Time Seen by Provider: 07/01/18 13:21 Primary Care Provider: SUDHAKAR GRIFFITH PA-C [Primary Care Provider] - Follow up as needed Mode of Arrival: Ambulatory Notes: 42-year-old female presented to ED for complaint of shortness of breath nausea dizziness lightheaded and rapid heartbeat. She states while at the doctor's office they gave her cures sulfate which she is never had before for her pernicious anemia. He states about a half an hour later her blood pressure went from 114/78 and 130/80 and a pulse increased a lot and she became very clammy. She states that the primary care doctor monitored her a while and she was okay so they discharged home said after she left she became nauseated lighthead and dizzy so she called the pharmacist and they said it could be a reaction to the ferrous sulfate so she came to the emergency room. She states she is has pain in her right shoulders pressures in her chest and she is feeling shaky. She states she has a history of anemia and back problems. Patient is alert and oriented respirations regular and unlabored lungs are clear to auscultation at t his time. TRAVEL OUTSIDE OF THE [place] IN LAST 30 DAYS: No - Related Data Allergies/Adverse Reactions: Cephalosporins Allergy (Severe, Verified 07/01/18 13:05) Throat itching and swelling ciprofloxacin [From Cipro] Allergy (Severe, Verified 07/01/18 13:05) Blistering in mouth and throat ethyl alcohol Allergy (Severe, Verified 07/01/18 13:05) Shortness of Breath, cough, difficulty breathing fluticasone [From Flonase] Allergy (Severe, Verified 07/01/18 13:05) Migraine, nose bleed latex Allergy (Severe, Verified 07/01/18 13:05) RASH Penicillins Allergy (Severe, Verified 07/01/18 13:05) Throat swelling, difficulty breathing cephalexin [From Keflex] Allergy (Verified 07/01/18 13:05) Throat swelling, difficulty breathing dexlansoprazole [From Dexilant] Allergy (Verified 07/01/18 13:05) erythromycin base [From Erythrocin] Allergy (Verified 07/01/18 13:05) Hives fluoxetine [From Prozac] Allergy (Verified 07/01/18 13:05) prednisone Allergy (Verified 07/01/18 13:05) Tachycardia sertraline [From Zoloft] Allergy (Verified 07/01/18 13:05) aspirin Adverse Reaction (Verified 07/01/18 13:05) N&V Sulfa (Sulfonamide Antibiotics) Adverse Reaction (Verified 07/01/18 13:05) See Comments IV dye Allergy (Uncoded 07/01/18 13:05) arrhythmia Past Medical History - General Information source: Patient - Social History Smoking Status: Current Every Day Smoker Chew tobacco use (# tins/day): No Frequency of alcohol use: None Drug Abuse: None Family History: Reviewed & Not Pertinent Patient has suicidal ideation: No Patient has homicidal ideation: No - Past Medical History Cardiac Medical History: Reports: Hx Heart Attack - 2009, Hx Hypertension - HX OF Denies: Hx Coronary Artery Disease Pulmonary Medical History: Reports: Hx Asthma, Hx COPD - INHALERS Denies: Hx Bronchitis, Hx Pneumonia Neurological Medical History: Reports: Hx Migraine, Hx Seizures - NO MEDS - LAST 2013 - NOT CURRENT. Denies: Hx Cerebrovascular Accident Renal/ Medical History: Denies: Hx Peritoneal Dialysis Musculoskeletal Medical History: Denies Hx Arthritis Past Surgical History: Reports: Hx Abdominal Surgery, Hx Cholecystectomy, Hx Gynecologic Surgery, Hx Hysterectomy, Hx Nose Surgery, Hx Thyroid Surgery, Hx Tu bal Ligation - Immunizations Immunizations up to date: Yes Hx Diphtheria, Pertussis, Tetanus Vaccination: No Review of Systems - Review of Systems Constitutional: denies: Chills, Fever Cardiovascular: See HPI, Palpitations, Heart racing, Dizziness Gastrointestinal: Nausea Neurological/Psychological: Anxiety -: Yes All other systems reviewed and negative Physical Exam - Vital signs Vitals: Temp Pulse Resp BP Pulse Ox 97.5 F 93 16 144/87 H 98 07/01/18 13:09 07/01/18 13:09 07/01/18 13:09 07/01/18 13:09 07/01/18 13:09 - Notes Notes: GENERAL_APPEARANCE: well_nourished, alert, cooperative, no_acute_distress, no_obvious_discomfort. VITALS: reviewed, see vital signs table. HEAD: no_swelling\tenderness on the head. EYES: PERRL, EOMI, conjunctiva_clear. NOSE: no_nasal_discharge. MOUTH: (-)decreased moisture. THROAT: no_tonsilar_inflammation, no_airway_obstruction. no_lymphadenopathy NECK: supple, no_neck_tenderness, (-)thyromegaly. BACK: no_back_tenderness. CHEST_WALL: no_chest_tenderness. LUNGS: no_wheezing, no_rales, no_rhonchi, (-)accessory muscle use, good air exchange bilateral. HEART: normal_rate, normal_rhythm, normal_S1, normal_S2, (-)S3, (-)S4, no_murmur, no_rub. ABDOMEN: normal_BS, soft, no_abd_tenderness, (-)guarding, (-)rebound, no_organomegaly, no_abd_masses. EXTREMITIES: good pulses in all_extremities, no_swelling\tenderness in the extremities, no_edema. SKIN: warm, dry, good_color, no_rash. MENTAL_STATUS: speech_clear, oriented_X_3, anxious_affect, responds_appropriately to questions. NEURO: Neg Motor or Sensory Deficits on exam, CN 2-12 intact, DTR 2+ symmetric x 4, No cerbellar signs Course - Re-evaluation Re-evalutation: 07/01/18 15:01 The patient was given some ferrous sulfate in the office. The patient has a history of chronic anemia. The patient stated she has a lot of allergies. She got a little bit of numbness and tingling and some symptoms. That had resolved she thought she was good but then it happened again. She decided to come in and get checked out. There is no rashes no drooling no stridor no wheezing. Nothing to suggest allergic reaction. Patient is extraordinarily anxious. She is very self involved with all her medical conditions. The patient looks good here. There is nothing to suggest an acute emergency medical condition. Laboratory work is reassuring she looks well. I will have her follow-up with her doctor about whether to take more of the iron I do not see anything that would be a life-threatening her at all. - Vital Signs Vital signs: Temp Pulse Resp BP Pulse Ox 97.5 F 93 16 144/87 H 98 07/01/18 13:09 07/01/18 13:09 07/01/18 13:09 07/01/18 13:09 07/01/18 13:09 - Laboratory Result Diagrams: 07/01/18 13:35 07/01/18 13:33 Laboratory results interpreted by me: 07/01/18 07/01/18 07/01/18 13:33 13:33 13:35 RDW 15.6 H Glucose 119 H Ur Leukocyte Esterase TRACE H - Diagnostic Test Radiology reviewed: Image reviewed Discharge - Discharge Clinical Impression: Medication side effect Condition: Good Disposition: HOME, SELF-CARE Instructions: Medication Side Effects ([facility]) Additional Instructions: Currently we do not see an emergency medical condition that was caused by the medications. Please follow-up with your doctor for further care. You may need to put more food on your stomach when you take the medication. Otherwise I feel that you are safe to go home. Please call your doctor in the morning to talk about the medicines before you take any additional. Referrals: SUDHAKAR GRIFFITH PA-C [Primary Care Provider] - Follow up as needed
[2018-07-01 15:34] VITALS: BP 125/84
--- NOTE | 2018-07-01 16:31 | EKG REPORT ---
SEVERITY:- ABNORMAL ECG - SINUS RHYTHM INFERIOR INFARCT, OLD : Confirmed by: Sergio Mueller MD 01-Jul-2018 16:31:04
== END 2018-07-01 15:34 | disposition home or self-care (01) ==
LOC: ER 13:04
DX: R06.02 Shortness of breath (principal); R42 Dizziness and giddiness; R11.0 Nausea; T45.4X5A Adverse effect of iron and its compounds, initial encounter; Y92.531 Health care provider office as the place of occurrence of the external cause; D64.9 Anemia, unspecified; Z88.3 Allergy status to other anti-infective agents; Z88.0 Allergy status to penicillin; Z91.040 Latex allergy status; Z90.49 Acquired absence of other specified parts of digestive tract; Z90.710 Acquired absence of both cervix and uterus
CPT/HCPCS: 36415; 80053; 81001; 82553; 83735; 84703; 85025; 93005; 93010; 99284

== ENCOUNTER 2018-07-13 23:08 | Emergency (ER) | payer BC ==
--- NOTE | 2018-07-13 23:36 | ER Document Report ---
ED Medical Screen (RME) - General Chief Complaint: Shortness Of Breath Stated Complaint: SHORTNESS OF BREATH Time Seen by Provider: 07/13/18 23:33 Primary Care Provider: SUDHAKAR GRIFFITH PA-C [Primary Care Provider] - Follow up as needed Notes: 43-year-old female coming in today chief complaint shortness of breath, weak, dizzy, feels like she is about to pass out. Patient states tightness in her chest and headache. States oxygen is dropping into the 80s. No history of lung pathology. I have treated and performed a rapid initial assessment of this patient. A comprehensive ED assessment and evaluation of the patient, analysis of test results and completion of medical decision making process will be conducted by additional ED providers. PHYSICAL EXAMINATION: GENERAL: Pale appearing. No acute distress. Toxic appearing LUNGS: Breath sounds clear to auscultation bilaterally and equal. No wheezes rales or rhonchi. Extremities: No cyanosis, clubbing, or edema b/l. NEUROLOGICAL: Normal speech, normal gait. PSYCH: Normal mood, normal affect. TRAVEL OUTSIDE OF THE [place] IN LAST 30 DAYS: No - Related Data Allergies/Adverse Reactions: Cephalosporins Allergy (Severe, Verified 07/01/18 13:05) Throat itching and swelling ciprofloxacin [From Cipro] Allergy (Severe, Verified 07/01/18 13:05) Blistering in mouth and throat ethyl alcohol Allergy (Severe, Verified 07/01/18 13:05) Shortness of Breath, cough, difficulty breathing fluticasone [From Flonase] Allergy (Severe, Verified 07/01/18 13:05) Migraine, nose bleed latex Allergy (Severe, Verified 07/01/18 13:05) RASH Penicillins Allergy (Severe, Verified 07/01/18 13:05) Throat swelling, difficulty breathing cephalexin [From Keflex] Allergy (Verified 07/01/18 13:05) Throat swelling, difficulty breathing dexlansoprazole [From Dexilant] Allergy (Verified 07/01/18 13:05) erythromycin base [From Erythrocin] Allergy (Verified 07/01/18 13:05) Hives fluoxetine [From Prozac] Allergy (Verified 07/01/18 13:05) prednisone Allergy (Verified 07/01/18 13:05) Tachycardia sertraline [From Zoloft] Allergy (Verified 07/01/18 13:05) aspirin Adverse Reaction (Verified 07/01/18 13:05) N&V Sulfa (Sulfonamide Antibiotics) Adverse Reaction (Verified 07/01/18 13:05) See Comments IV dye Allergy (Uncoded 07/01/18 13:05) arrhythmia Past Medical History - Social History Family history: None - Past Medical History Cardiac Medical History: Reports: Hx Heart Attack - 2009, Hx Hypertension - HX OF Denies: Hx Coronary Artery Disease Pulmonary Medical History: Reports: Hx Asthma, Hx COPD - INHALERS Denies: Hx Bronchitis, Hx Pneumonia Neurological Medical History: Reports: Hx Migraine, Hx Seizures - NO MEDS - LAST 2013 - NOT CURRENT. Denies: Hx Cerebrovascular Accident Renal/ Medical History: Denies: Hx Peritoneal Dialysis Musculoskeltal Medical History: Denies Hx Arthritis Past Surgical History: Reports: Hx Abdominal Surgery, Hx Cholecystectomy, Hx Gynecologic Surgery, Hx Hysterectomy, Hx Nose Surgery, Hx Thyroid Surgery, Hx Tubal Ligation - Immunizations Immunizations up to date: Yes Hx Diphtheria, Pertussis, Tetanus Vaccination: No History of Influenza Vaccine for 11/2016 - 04/2017 Season: No Doctor's Discharge - Discharge Referrals: SUDHAKAR GRIFFITH PA-C [Primary Care Provider] - Follow up as needed
--- NOTE | 2018-07-14 00:14 | RADIOLOGY REPORT (SQ) ---
EXAM DESCRIPTION: XR CHEST 2 VIEWS COMPLETED DATE/TME: 07/13/2018 23:34 CLINICAL HISTORY: 43 years, Female, chest pressure, sob COMPARISON: None. NUMBER OF VIEWS: 2 TECHNIQUE: 2 view chest LIMITATIONS: None. FINDINGS: Heart size normal. Lungs clear. No pneumothorax IMPRESSION: Negative chest copyright 2010 [employer]- All Rights Reserved
[2018-07-14 00:21] LABS: ABSOLUTE BASOPHILS # (AUTO) 0.1 10^3/uL (0.0-0.2); ABSOLUTE EOSINOPHILS # (AUTO) 0.3 10^3/uL (0.0-0.6); ABSOLUTE LYMPHOCYTES (AUTO) 2.5 10^3/uL (0.5-4.7); ABSOLUTE MONOCYTES (AUTO) 0.5 10^3/uL (0.1-1.4); ABSOLUTE NEUT (AUTO) 4.1 10^3/uL (1.7-8.2); BASOPHILS % (AUTO) 1.1 % (0-2); EOSINOPHILS % (AUTO) 3.5 % (0-6); HEMATOCRIT 38.6 % (36.0-47.0); HEMOGLOBIN 12.9 g/dL (12.0-15.5); LYMPHOCYTES % (AUTO) 33.5 % (13-45); MEAN CORPUSCULAR HEMOGLOBIN 28.3 pg (27.0-33.4); MEAN CORPUSCULAR HGB CONC 33.4 g/dL (32.0-36.0); MEAN CORPUSCULAR VOLUME 85 fl (80-97); PLATELET COUNT 257 10^3/uL (150-450); RED BLOOD COUNT 4.55 10^6/uL (3.72-5.28); RED CELL DISTRIBUTION WIDTH 15.6 % (11.5-14.0); SEGMENTED NEUTROPHILS % (AUTO) 54.9 % (42-78); TOTAL CELLS COUNTED % (AUTO) 100 %; WHITE BLOOD COUNT 7.6 10^3/uL (4.0-10.5)
[2018-07-14 01:13] LABS: APPEARANCE,URINE CLEAR; BILIRUBIN,URINE NEGATIVE (NEGATIVE); COLOR,URINE STRAW; GLUCOSE, URINE NEGATIVE (NEGATIVE); KETONES,URINE NEGATIVE (NEGATIVE); LEUKOCYTE ESTERASE,URINE SMALL (NEGATIVE); NITRITE,URINE NEGATIVE (NEGATIVE); PROTEIN,URINE NEGATIVE (NEGATIVE); URINE SPECIFIC GRAVITY 1.006; UROBILINOGEN,URINE NEGATIVE mg/dL (<2.0)
[2018-07-14 01:24] LABS: ALANINE AMINOTRANSFERASE 27 U/L (9-52); ALBUMIN 4.3 g/dL (3.5-5.0); ALKALINE PHOSPHATASE 87 U/L (38-126); ANION GAP 11 (5-19); ASPARTATE AMINO TRANSFERASE 18 U/L (14-36); BILIRUBIN,DIRECT 0.2 mg/dL (0.0-0.4); BILIRUBIN,TOTAL 0.2 mg/dL (0.2-1.3); BLOOD UREA NITROGEN 9 mg/dL (7-20); CALCIUM 9.8 mg/dL (8.4-10.2); CARBON DIOXIDE 22 mmol/L (22-30); CHLORIDE 106 mmol/L (98-107); GLUCOSE 112 mg/dL (75-110); POTASSIUM 3.9 mmol/L (3.6-5.0); SODIUM 139.4 mmol/L (137-145); TOTAL PROTEIN 7.3 g/dL (6.3-8.2)
--- NOTE | 2018-07-14 03:59 | ER Document Report ---
ED General - General Chief Complaint: Shortness Of Breath Stated Complaint: SHORTNESS OF BREATH Time Seen by Provider: 07/13/18 23:33 Primary Care Provider: SUDHAKAR GRIFFITH PA-C [Primary Care Provider] - 07/15/18 TRAVEL OUTSIDE OF THE [place] IN LAST 30 DAYS: No - HPI Notes: Patient is a 43-year-old female that presents to the emergency department for multiple vague complaints. Patient states throughout the day she has had a mild headache, nausea, chest tightness, shortness of breath, and sweaty palms. She describes the chest tightness as "somebody putting an Eber wrap around me and pulling it tight". She states this sensation lasts for about 30 minutes and then resolves. She is not currently having any chest tightness. She does report the shortness of breath was associated with the chest tightness. Patient has not taken any medication at home for her headache. She states "my doctors have been on me to take my Percocet more often, I do not like taking pain medicine". Patient denies any focal numbness or weakness. She does states she feels generally tired. She denies fevers and chills, cough, dysuria, hematuria, urinary frequency, and abdominal pain. She does also note that earlier this evening she called EMS for her symptoms and they told her her blood sugar was 60, after drinking pineapple juice it increased to 95. She does not have a history of diabetes but does have a family history of diabetes. EMS advised her to talk to her PCP about getting an A1c performed. She did not want transported to the ED at that time. Past Medical History: Hypothyroidism, hypertension Past Surgical History: Thyroidectomy, tubal ligation, hysterectomy, cholecys tectomy, Social History: Denies drugs alcohol and tobacco Family History: Reviewed and noncontributory for presenting illness Allergies: Reviewed, see documented allergy list. REVIEW OF SYSTEMS: CONSTITUTIONAL : No fever No chills diaphoresis No recent illness Fatigue EENT: No vision changes No congestion No sore throat CARDIOVASCULAR: chest pain No palpitations RESPIRATORY: shortness of breath No cough No difficulty breathing GASTROINTESTINAL: No abdominal pain nausea No vomiting No diarrhea GENITOURINARY: No dysuria No hematuria No difficulty urinating MUSCULOSKELETAL: No back pain No leg pain No arm pain SKIN: No rashes No lesions LYMPHATIC: No swollen, enlarged glands. NEUROLOGICAL: No lightheadedness No headache No weakness No paresthesias PSYCHIATRIC: No anxiety No depression PHYSICAL EXAMINATION: Vital signs reviewed, nursing noted reviewed. GENERAL: Well-appearing, well-nourished and in no acute distress. HEAD: Atraumatic, normocephalic. EYES: Eyes appear normal, extraocular movements intact, sclera anicteric, c onjunctiva are normal. ENT: nares patent, oropharynx clear without exudates. Moist mucous membranes. NECK: Normal range of motion, supple without lymphadenopathy LUNGS: Breath sounds clear to auscultation bilaterally and equal. No wheezes rales or rhonchi. HEART: Regular rate and rhythm without murmurs ABDOMEN: Soft, nontender, normoactive bowel sounds. No rebound, guarding, or rigidity. No masses appreciated. EXTREMITIES: Nontender, good range of motion, no pitting or edema. NEUROLOGICAL: No focal neurological deficits. Moves all extremities spontaneously Motor and sensory grossly intact on exam. PSYCH: Anxious, normal affect. SKIN: Warm, Dry, normal turgor, no rashes or lesions noted on exposed skin - Related Data Allergies/Adverse Reactions: Cephalosporins Allergy (Severe, Verified 07/01/18 13:05) Throat itching and swelling ciprofloxacin [From Cipro] Allergy (Severe, Verified 07/01/18 13:05) Blistering in mouth and throat ethyl alcohol Allergy (Severe, Verified 07/01/18 13:05) Shortness of Breath, cough, difficulty breathing fluticasone [From Flonase] Allergy (Severe, Verified 07/01/18 13:05) Migraine, nose bleed latex Allergy (Severe, Verified 07/01/18 13:05) RASH Penicillins Allergy (Severe, Verified 07/01/18 13:05) Throat swelling, difficulty breathing cephalexin [From Keflex] Allergy (Verified 07/01/18 13:05) Throat swelling, difficulty breathing dexlansoprazole [From Dexilant] Allergy (Verified 07/01/18 13:05) erythromycin base [From Erythrocin] Allergy (Verified 07/01/18 13:05) Hives fluoxetine [From Prozac] Allergy (Verified 07/01/18 13:05) prednisone Allergy (Verified 07/01/18 13:05) Tachycardia sertraline [From Zoloft] Allergy (Verified 07/01/18 13:05) aspirin Adverse Reaction (Verified 07/01/18 13:05) N&V Sulfa (Sulfonamide Antibiotics) Adverse Reaction (Verified 07/01/18 13:05) See Comments IV dye Allergy (Uncoded 07/01/18 13:05) arrhythmia Past Medical History - Social History Smoking Status: Current Some Day Smoker Chew tobacco use (# tins/day): No Frequency of alcohol use: Occasional Drug Abuse: None Family History: Reviewed & Not Pertinent Patient has suicidal ideation: No Patient has homicidal ideation: No - Past Medical History Cardiac Medical History: Reports: Hx Heart Attack - 2009, Hx Hypertension - HX O F Denies: Hx Coronary Artery Disease Pulmonary Medical History: Reports: Hx Asthma, Hx COPD - INHALERS Denies: Hx Bronchitis, Hx Pneumonia Neurological Medical History: Reports: Hx Migraine, Hx Seizures - NO MEDS - LAST 2013 - NOT CURRENT. Denies: Hx Cerebrovascular Accident Renal/ Medical History: Denies: Hx Peritoneal Dialysis Musculoskeletal Medical History: Denies Hx Arthritis Past Surgical History: Reports: Hx Abdominal Surgery, Hx Cholecystectomy, Hx Gynecologic Surgery, Hx Hysterectomy, Hx Nose Surgery, Hx Thyroid Surgery, Hx Tubal Ligation - Immunizations Immunizations up to date: Yes Hx Diphtheria, Pertussis, Tetanus Vaccination: No Physical Exam - Vital signs Vitals: Temp Pulse Resp BP Pulse Ox 97.9 F 89 16 142/91 H 100 07/13/18 23:37 07/13/18 23:37 07/13/18 23:37 07/13/18 23:37 07/13/18 23:37 Course - Re-evaluation Re-evalutation: 07/14/18 04:00 Vitals reviewed. Nursing notes reviewed. EKG shows no acute ischemic changes. Chest x-ray is negative. Patient has no wheezing to suggest COPD. Her initial troponin is normal. Patient's chest pain symptoms are atypical for ACS. Her heart score is 2 putting her at low risk for MACE. Patient's headache is generalized, mild and she has no focal neurologic deficits or fever to suggest intracranial hemorrhage, stroke or meningitis. I do not feel imaging of her brain is currently indicated. Patient was ordered Tylenol for her headache. Patient did report hypoglycemia with EMS earlier this evening. Her blood sugar currently stable. She is tolerating oral intake. Urinalysis shows borderline UTI however she has no current symptoms of UTI, urine culture will be sent and antibiotics will be held until culture is resulted. Currently awaiting second troponin. Laboratory 07/14/18 07/14/18 07/14/18 00:06 00:06 00:06 WBC 7.6 RBC 4.55 Hgb 12.9 Hct 38.6 MCV 85 MCH 28.3 MCHC 33.4 RDW 15.6 H Plt Count 257 Seg Neutrophils % 54.9 Lymphocytes % 33.5 Monocytes % 7.0 Eosinophils % 3.5 Basophils % 1.1 Absolute Neutrophils 4.1 Absolute Lymphocytes 2.5 Absolute Monocytes 0.5 Absolute Eosinophils 0.3 Absolute Basophils 0.1 Sodium 139.4 Potassium 3.9 Chloride 106 Carbon Dioxide 22 Anion Gap 11 BUN 9 Creatinine 0.65 Est GFR ( Amer) > 60 Est GFR (Non-Af Amer) > 60 Glucose 112 H Calcium 9.8 Total Bilirubin 0.2 Direct Bilirubin 0.2 Neonat Total Bilirubin Not Reportable Neonat Direct Bilirubin Not Reportable Neonat Indirect Bili Not Reportable AST 18 ALT 27 Alkaline Phosphatase 87 Troponin I < 0.012 Total Protein 7.3 Albumin 4.3 Urine Color Urine Appearance Urine pH Ur Specific Garber Urine Protein Urine Glucose (UA) Urine Ketones Urine Blood Urine Nitrite Urine Bilirubin Urine Urobilinogen Ur Leukocyte Esterase Urine WBC (Auto) Urine RBC (Auto) Squamous Epi Cells Auto Urine Ascorbic Acid Urine HCG, Qual 07/14/18 00:44 WBC RBC Hgb Hct MCV MCH MCHC RDW Plt Count Seg Neutrophils % Lymphocytes % Monocytes % Eosinophils % Basophils % Absolute Neutrophils Absolute Lymphocytes Absolute Monocytes Absolute Eosinophils Absolute Basophils Sodium Potassium Chloride Carbon Dioxide Anion Gap BUN Creatinine Est GFR ( Amer) Est GFR (Non-Af Amer) Glucose Calcium Total Bilirubin Direct Bilirubin Neonat Total Bilirubin Neonat Direct Bilirubin Neonat Indirect Bili AST ALT Alkaline Phosphatase Troponin I Total Protein Albumin Urine Color STRAW Urine Appearance CLEAR Urine pH 7.0 Ur Specific Garber 1.006 Urine Protein NEGATIVE Urine Glucose (UA) NEGATIVE Urine Ketones NEGATIVE Urine Blood NEGATIVE Urine Nitrite NEGATIVE Urine Bilirubin NEGATIVE Urine Urobilinogen NEGATIVE Ur Leukocyte Esterase SMALL H Urine WBC (Auto) 33 Urine RBC (Auto) 0 Squamous Epi Cells Auto 1 Urine Ascorbic Acid NEGATIVE Urine HCG, Qual NEGATIVE Chest X-Ray 07/13/18 23:34 IMPRESSION: Negative chest copyright 2011 [employer]- All Rights Reserved 07/14/18 04:39 Patient's delta troponin is negative. She has refused the Tylenol that I had ordered earlier. Patient has remained hemodynamically stable. I do not currently suspect ACS. She will follow with her primary care provider tomorrow as already scheduled. She will return for new or worsening symptoms. She is stable at discharge - Vital Signs Vital signs: Temp Pulse Resp BP Pulse Ox 97.9 F 89 16 122/87 H 99 07/13/18 23:37 07/13/18 23:37 07/13/18 23:37 07/14/18 04:01 07/14/18 04:01 - Laboratory Result Diagrams: 07/14/18 00:06 07/14/18 00:06 Laboratory results interpreted by me: 07/14/18 07/14/18 07/14/18 00:06 00:06 00:44 RDW 15.6 H Glucose 112 H Ur Leukocyte Esterase SMALL H - EKG Interpretation by Me Additional EKG results interpreted by me: 07/14/18 04:05 Interpreted by myself [id number]: Normal sinus rhythm, rate 82, normal axis, no ectopy, no STEMI Discharge - Discharge Clinical Impression: Chest pain Qualifiers: Chest pain type: unspecified Qualified Code(s): R07.9 - Chest pain, unspecified Headache Qualifiers: Headache type: unspecified Headache chronicity pattern: acute headache Intractability: not intractable Qualified Code(s): R51 - Headache Condition: Stable Disposition: HOME, SELF-CARE Instructions: Chest Pain of Unclear Cause ([facility]), Headache ([facility]) Additional Instructions: Please return to the emergency department if you have any worsening, or concern of your symptoms. Please return to the emergency department if you develop new chest pain, difficulty breathing, severe abdominal pain, or ongoing vomiting. Keep your appointment with your primary care physician on 07/15/18 for reevaluation If prescribed, take all medications as directed. If you have any questions or concerns do not hesitate to return the emergency department for evaluation. Referrals: SUDHAKAR GRIFFITH PA-C [Primary Care Provider] - 07/15/18
[2018-07-14] MEDS ORDERED: ACETAMINOPHEN 325 MG TABLET PO ONE (04:02)
[2018-07-14 04:48] VITALS: BP 121/75
--- NOTE | 2018-07-14 16:18 | EKG REPORT ---
SEVERITY:- NORMAL ECG - SINUS RHYTHM : Confirmed by: Nicole Rodriguez MD 14-Jul-2018 16:16:41
== END 2018-07-14 04:52 | disposition home or self-care (01) ==
LOC: ER 23:08
DX: R07.89 Other chest pain (principal); R51 Headache; R11.0 Nausea; J44.9 Chronic obstructive pulmonary disease, unspecified; R06.02 Shortness of breath; R53.83 Other fatigue; R61 Generalized hyperhidrosis; I10 Essential (primary) hypertension; I25.2 Old myocardial infarction; Z83.3 Family history of diabetes mellitus; Z88.1 Allergy status to other antibiotic agents; Z88.8 Allergy status to other drugs, medicaments and biological substances; Z91.040 Latex allergy status; Z91.018 Allergy to other foods; Z88.0 Allergy status to penicillin; Z91.041 Radiographic dye allergy status; F17.200 Nicotine dependence, unspecified, uncomplicated
CPT/HCPCS: 36415; 71046; 80053; 81001; 81025; 84484; 85025; 87086; 87088; 93005; 93010; 99285

== ENCOUNTER 2018-07-18 22:58 | Emergency (ER) | payer BC ==
[2018-07-18 23:50] LABS: APPEARANCE,URINE CLEAR; BILIRUBIN,URINE NEGATIVE (NEGATIVE); COLOR,URINE COLORLESS; GLUCOSE, URINE NEGATIVE (NEGATIVE); KETONES,URINE NEGATIVE (NEGATIVE); LEUKOCYTE ESTERASE,URINE TRACE (NEGATIVE); NITRITE,URINE NEGATIVE (NEGATIVE); PROTEIN,URINE NEGATIVE (NEGATIVE); URINE SPECIFIC GRAVITY 1.002; UROBILINOGEN,URINE NEGATIVE mg/dL (<2.0)
[2018-07-18 23:55] LABS: ALANINE AMINOTRANSFERASE 26 U/L (9-52); ALBUMIN 4.4 g/dL (3.5-5.0); ALKALINE PHOSPHATASE 72 U/L (38-126); ANION GAP 10 (5-19); ASPARTATE AMINO TRANSFERASE 26 U/L (14-36); BILIRUBIN,DIRECT 0.3 mg/dL (0.0-0.4); BILIRUBIN,TOTAL 0.3 mg/dL (0.2-1.3); BLOOD UREA NITROGEN 9 mg/dL (7-20); CALCIUM 10.1 mg/dL (8.4-10.2); CARBON DIOXIDE 24 mmol/L (22-30); CHLORIDE 106 mmol/L (98-107); CREATINE KINASE 87 U/L (30-135); GLUCOSE 81 mg/dL (75-110); POTASSIUM 4.3 mmol/L (3.6-5.0); SODIUM 139.6 mmol/L (137-145); TOTAL PROTEIN 7.4 g/dL (6.3-8.2)
[2018-07-19] LABS: ABSOLUTE BASOPHILS # (AUTO) 0.1 10^3/uL (0.0-0.2); ABSOLUTE EOSINOPHILS # (AUTO) 0.2 10^3/uL (0.0-0.6); ABSOLUTE LYMPHOCYTES (AUTO) 2.6 10^3/uL (0.5-4.7); ABSOLUTE MONOCYTES (AUTO) 0.6 10^3/uL (0.1-1.4); ABSOLUTE NEUT (AUTO) 4.4 10^3/uL (1.7-8.2); BASOPHILS % (AUTO) 0.9 % (0-2); EOSINOPHILS % (AUTO) 2.2 % (0-6); HEMATOCRIT 37.7 % (36.0-47.0); HEMOGLOBIN 12.4 g/dL (12.0-15.5); MEAN CORPUSCULAR HEMOGLOBIN 28.2 pg (27.0-33.4); MEAN CORPUSCULAR VOLUME 86 fl (80-97); MONOCYTES % (AUTO) 8.3 % (3-13); PLATELET COUNT 237 10^3/uL (150-450); RED BLOOD COUNT 4.41 10^6/uL (3.72-5.28); RED CELL DISTRIBUTION WIDTH 15.2 % (11.5-14.0); SEGMENTED NEUTROPHILS % (AUTO) 55.6 % (42-78); TOTAL CELLS COUNTED % (AUTO) 100 %; WHITE BLOOD COUNT 7.8 10^3/uL (4.0-10.5)
[2018-07-19 00:07] LABS: CREATINE KINASE MB 0.25 ng/mL (<4.55)
[2018-07-19 00:08] LABS: TROPONIN I < 0.012 ng/mL
--- NOTE | 2018-07-19 00:27 | RADIOLOGY REPORT (SQ) ---
CLINICAL HISTORY: CP COMPARISON: June 09, 2018. TECHNIQUE: XR CHEST 1 VIEW 07/18/2018 11:29 PM CDT FINDINGS: Cardiac silhouette is normal in size. Lungs are clear without consolidation, atelectasis, mass or edema. There is no pleural effusion. There is no pneumothorax. There are no acute osseous findings. IMPRESSION: Clear lungs.
--- NOTE | 2018-07-19 01:57 | ER Document Report ---
ED Medical Screen (RME) - General Chief Complaint: Chest Pain Stated Complaint: CHEST PAIN Time Seen by Provider: 07/19/18 01:50 Primary Care Provider: SUDHAKAR GRIFFITH PA-C [Primary Care Provider] - Follow up as needed Mode of Arrival: Medic Information source: Patient Notes: 43-year-old female presented to ED for complaint of chest pain now abdominal pain. She states she has a history of H. 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 She states that at home she had severe chest pain so she took her Zantac waited for a while and the blood pressure kept going up and down. She states she called 911 and came to the emergency room. She states that her pain is now mostly in her abdomen and her right flank but she still has chest pain also. She states that she might have a UTI because she has discomfort when she urinates. He states sometimes her urine is very dark and sometimes after she drinks a lot of water becomes light. She states she feels like she has a lot of swelling in her right kidney area. Patient is alert oriented respirations regular nonlabored speaking in full sentences. I have greeted and performed a rapid initial assessment of this patient. A comprehensive ED assessment and evaluation of the patient, analysis of test results and completion of medical decision making process will be conducted by an additional ED providers. Dictation of this chart was performed using voice recognition software; therefore, there may be some unintended grammatical errors. TRAVEL OUTSIDE OF THE [place] IN LAST 30 DAYS: No - Related Data Allergies/Adverse Reactions: Cephalosporins Allergy (Severe, Verified 07/01/18 13:05) Throat itching and swelling ciprofloxacin [From Cipro] Allergy (Severe, Verified 07/01/18 13:05) Blistering in mouth and throat ethyl alcohol Allergy (Severe, Verified 07/01/18 13:05) Shortness of Breath, cough, difficulty breathing fluticasone [From Flonase] Allergy (Severe, Verified 07/01/18 13:05) Migraine, nose bleed latex Allergy (Severe, Verified 07/01/18 13:05) RASH Penicillins Allergy (Severe, Verified 07/01/18 13:05) Throat swelling, difficulty breathing cephalexin [From Keflex] Allergy (Verified 07/01/18 13:05) Throat swelling, difficulty breathing dexlansoprazole [From Dexilant] Allergy (Verified 07/01/18 13:05) erythromycin base [From Erythrocin] Allergy (Verified 07/01/18 13:05) Hives fluoxetine [From Prozac] Allergy (Verified 07/01/18 13:05) prednisone Allergy (Verified 07/01/18 13:05) Tachycardia sertraline [From Zoloft] Allergy (Verified 07/01/18 13:05) aspirin Adverse Reaction (Verified 07/01/18 13:05) N&V Sulfa (Sulfonamide Antibiotics) Adverse Reaction (Verified 07/01/18 13:05) See Comments IV dye Allergy (Uncoded 07/01/18 13:05) arrhythmia Past Medical History - Social History Family history: None - Past Medical History Cardiac Medical History: Reports: Hx Heart Attack - 2009, Hx Hypertension - HX O F Denies: Hx Coronary Artery Disease Pulmonary Medical History: Reports: Hx Asthma, Hx COPD - INHALERS Denies: Hx Bronchitis, Hx Pneumonia Neurological Medical History: Reports: Hx Migraine, Hx Seizures - NO MEDS - LAST 2013 - NOT CURRENT. Denies: Hx Cerebrovascular Accident Renal/ Medical History: Denies: Hx Peritoneal Dialysis Musculoskeltal Medical History: Denies Hx Arthritis Past Surgical History: Reports: Hx Abdominal Surgery, Hx Cholecystectomy, Hx Gynecologic Surgery, Hx Hysterectomy, Hx Nose Surgery, Hx Thyroid Surgery, Hx Tubal Ligation - Immunizations Immunizations up to date: Yes Hx Diphtheria, Pertussis, Tetanus Vaccination: No History of Influenza Vaccine for 11/2016 - 04/2017 Season: No Physical Exam - Vital signs Vitals: Temp Pulse Resp BP Pulse Ox 97.8 F 101 H 20 135/97 H 98 07/18/18 23:27 07/18/18 23:27 07/18/18 23:27 07/18/18 23:27 07/18/18 23:27 Course - Vital Signs Vital signs: Temp Pulse Resp BP Pulse Ox 97.8 F 101 H 20 135/97 H 98 07/18/18 23:27 07/18/18 23:27 07/18/18 23:27 07/18/18 23:27 07/18/18 23:27 - Laboratory Result Diagrams: 07/18/18 23:20 07/18/18 23:20 Laboratory results interpreted by me: 07/18/18 07/18/18 23:20 23:20 RDW 15.2 H Ur Leukocyte Esterase TRACE H Doctor's Discharge - Discharge Referrals: SUDHAKAR GRIFFITH PA-C [Primary Care Provider] - Follow up as needed
--- NOTE | 2018-07-19 02:44 | RADIOLOGY REPORT (SQ) ---
EXAM DESCRIPTION: [facility]: US RETROPERITONEUM CLINICAL HISTORY: 43 years Female; right flank pain TECHNIQUE: Bilateral renal ultrasound was performed. COMPARISON: None. FINDINGS: Visualized portions of IVC and aorta are unremarkable. Right kidney: 12.3 x 6.4 x 4.2 cm. No hydronephrosis or shadowing calculi. Left kidney: 12.6 x 6 x 4.5 cm. No hydronephrosis or shadowing calculi. Bladder: Incompletely distended but grossly unremarkable. Jets not demonstrated. IMPRESSION: 1. Normal renal sonogram.
[2018-07-19] MEDS ORDERED: FAMOTIDINE 20 MG TABLET PO ONE (07:16)
[2018-07-19] MEDS ORDERED: OXYCODONE-ACETAMINOPHEN 5-325 MG TABLET PO ONE (07:16)
--- NOTE | 2018-07-19 07:19 | ER Document Report ---
ED General - General Chief Complaint: Chest Pain Stated Complaint: CHEST PAIN Time Seen by Provider: 07/19/18 01:50 Primary Care Provider: SUDHAKAR GRIFFITH PA-C [PHYSICIAN DOOR TO DOOR SALES REPRESENTATIVE] - Follow up as needed Mode of Arrival: Medic Notes: 43-year-old female to the emergency department chief complaint of right flank pain, chest pain, epigastric pain, body aches, abdominal pain, headaches, chronic pain, nausea, abdominal pain, possible ulcer, history of low iron, history of low potassium. Followed by multiple doctors as an outpatient. Has been waiting 6 hours to be seen. On chronic pain management as well. TRAVEL OUTSIDE OF THE [place] IN LAST 30 DAYS: No - HPI Onset/Duration: Gradual, Constant Quality of pain: Achy Severity: Moderate Pain Level: 4 - Related Data Allergies/Adverse Reactions: Cephalosporins Allergy (Severe, Verified 07/01/18 13:05) Throat itching and swelling ciprofloxacin [From Cipro] Allergy (Severe, Verified 07/01/18 13:05) Blistering in mouth and throat ethyl alcohol Allergy (Severe, Verified 07/01/18 13:05) Shortness of Breath, cough, difficulty breathing fluticasone [From Flonase] Allergy (Severe, Verified 07/01/18 13:05) Migraine, nose bleed latex Allergy (Severe, Verified 07/01/18 13:05) RASH Penicillins Allergy (Severe, Verified 07/01/18 13:05) Throat swelling, difficulty breathing cephalexin [From Keflex] Allergy (Verified 07/01/18 13:05) Throat swelling, difficulty breathing dexlansoprazole [From Dexilant] Allergy (Verified 07/01/18 13:05) erythromycin base [From Erythrocin] Allergy (Verified 07/01/18 13:05) Hives fluoxetine [From Prozac] Allergy (Verified 07/01/18 13:05) prednisone Allergy (Verified 07/01/18 13:05) Tachycardia sertraline [From Zoloft] Allergy (Verified 07/01/18 13:05) aspirin Adverse Reaction (Verified 07/01/18 13:05) N&V Sulfa (Sulfonamide Antibiotics) Adverse Reaction (Verified 07/01/18 13:05) See Comments IV dye Allergy (Uncoded 07/01/18 13:05) arrhythmia Past Medical History - General Information source: Patient - Social History Smoking Status: Current Every Day Smoker Cigarette use (# per day): Yes Frequency of alcohol use: None Drug Abuse: None Lives with: Spouse/Significant other Family History: Reviewed & Not Pertinent - Past Medical History Cardiac Medical History: Reports: Hx Heart Attack - 2010, Hx Hypertension - HX OF Denies: Hx Coronary Artery Disease Pulmonary Medical History: Reports: Hx Asthma, Hx COPD - INHALERS Denies: Hx Bronchitis, Hx Pneumonia Neurological Medical History: Reports: Hx Migraine, Hx Seizures - NO MEDS - LAST 2013 - NOT CURRENT. Denies: Hx Cerebrovascular Accident Renal/ Medical History: Denies: Hx Peritoneal Dialysis Musculoskeletal Medical History: Denies Hx Arthritis Past Surgical History: Reports: Hx Abdominal Surgery, Hx Cholecystectomy, Hx Gynecologic Surgery, Hx Hysterectomy, Hx Nose Surgery, Hx Thyroid Surgery, Hx Tubal Ligation - Immunizations Immunizations up to date: Yes Hx Diphtheria, Pertussis, Tetanus Vaccination: No Review of Systems - Review of Systems Notes: Constitutional: denies: Chills, Diaphoresis, Fever, Malaise, Weakness EENT: denies: Eye discharge, Blurred vision, Tearing, Double vision, Nose congestion, Nose discharge, Throat swelling, Mouth pain Cardiovascular: denies: Palpitations, Heart racing, Orthopnea, Dyspnea, Chest pain Respiratory: denies: Cough, Hurts to breathe, Wheezing, Shortness of breath Gastrointestinal: +Abdominal pain, -Diarrhea, +Nausea, =Vomiting, -Black stools,-bright red blood in stool Genitourinary: denies: Burning, Dysuria, Discharge, Frequency,+ Flank pain, - Hematuria Musculoskeletal: denies: Joint pain, Joint swelling, Muscle pain, Muscle stiffness, +back pain Hematologic/Lymphatic: denies: Anemia, Easy bleeding, Easy bruising, Blood clots Neurological/Psychological: denies: Confusion, Dementia, Depression, Loss of consciousness Skin: No lesions, no masses, no skin breakdown, no abscesses Physical Exam - Vital signs Vitals: Temp Pulse Resp BP Pulse Ox 97.8 F 101 H 20 135/97 H 98 07/18/18 23:27 07/18/18 23:27 07/18/18 23:27 07/18/18 23:27 07/18/18 23:27 Interpretation: Normal - General General appearance: Appears well, Alert - HEENT Head: Normocephalic, Atraumatic Eyes: Normal Pupils: PERRL - Respiratory Respiratory status: No respiratory distress Chest status: Nontender Breath sounds: Normal Chest palpation: Normal - Cardiovascular Rhythm: Regular Heart sounds: Normal auscultation Murmur: No - Abdominal Inspection: Normal Distension: No distension Bowel sounds: Normal Tenderness: Nontender Organomegaly: No organomegaly - Back Back: Normal, Nontender - Extremities General upper extremity: Normal inspection, Nontender, Normal color, Normal ROM, Normal temperature General lower extremity: Normal inspection, Nontender, Normal color, Normal ROM, Normal temperature, Normal weight bearing. No: Keke's sign - Neurological Neuro grossly intact: Yes Cognition: Normal Orientation: AAOx4 [place] Coma Scale Eye Opening: Spontaneous [place] Coma Scale Verbal: Oriented [place] Coma Scale Motor: Obeys Commands [place] Coma Scale Total: 15 Speech: Normal Motor strength normal: LUE, RUE, LLE, RLE Sensory: Normal - Psychological Associated symptoms: Normal affect, Normal mood - Skin Skin Temperature: Warm Skin Moisture: Dry Skin Color: Normal Course - Re-evaluation Re-evalutation: 07/19/18 08:50 Laboratory 07/18/18 07/18/18 07/18/18 23:20 23:20 23:20 WBC 7.8 RBC 4.41 Hgb 12.4 Hct 37.7 MCV 86 MCH 28.2 MCHC 33.0 RDW 15.2 H Plt Count 237 Seg Neutrophils % 55.6 Lymphocytes % 33.0 Monocytes % 8.3 Eosinophils % 2.2 Basophils % 0.9 Absolute Neutrophils 4.4 Absolute Lymphocytes 2.6 Absolute Monocytes 0.6 Absolute Eosinophils 0.2 Absolute Basophils 0.1 Sodium 139.6 Potassium 4.3 Chloride 106 Carbon Dioxide 24 Anion Gap 10 BUN 9 Creatinine 0.64 Est GFR ( Amer) > 60 Est GFR (Non-Af Amer) > 60 Glucose 81 Calcium 10.1 Total Bilirubin 0.3 Direct Bilirubin 0.3 Neonat Total Bilirubin Not Reportable Neonat Direct Bilirubin Not Reportable Neonat Indirect Bili Not Reportable AST 26 ALT 26 Alkaline Phosphatase 72 Creatine Kinase 87 CK-MB (CK-2) 0.25 Troponin I < 0.012 Total Protein 7.4 Albumin 4.4 Lipase Serum HCG, Qual Urine Color Urine Appearance Urine pH Ur Specific [place] Urine Protein Urine Glucose (UA) Urine Ketones Urine Blood Urine Nitrite Urine Bilirubin Urine Urobilinogen Ur Leukocyte Esterase Urine WBC (Auto) Urine RBC (Auto) Squamous Epi Cells Auto Urine Mucus (Auto) Urine Ascorbic Acid 07/18/18 07/18/18 07/19/18 23:20 23:20 05:00 WBC RBC Hgb Hct MCV MCH MCHC RDW Plt Count Seg Neutrophils % Lymphocytes % Monocytes % Eosinophils % Basophils % Absolute Neutrophils Absolute Lymphocytes Absolute Monocytes Absolute Eosinophils Absolute Basophils Sodium Potassium Chloride Carbon Dioxide Anion Gap BUN Creatinine Est GFR ( Amer) Est GFR (Non-Af Amer) Glucose Calcium Total Bilirubin Direct Bilirubin Neonat Total Bilirubin Neonat Direct Bilirubin Neonat Indirect Bili AST ALT Alkaline Phosphatase Creatine Kinase CK-MB (CK-2) Troponin I < 0.012 Total Protein Albumin Lipase Serum HCG, Qual NEGATIVE Urine Color COLORLESS Urine Appearance CLEAR Urine pH 9.0 Ur Specific [place] 1.002 Urine Protein NEGATIVE Urine Glucose (UA) NEGATIVE Urine Ketones NEGATIVE Urine Blood NEGATIVE Urine Nitrite NEGATIVE Urine Bilirubin NEGATIVE Urine Urobilinogen NEGATIVE Ur Leukocyte Esterase TRACE H Urine WBC (Auto) 5 Urine RBC (Auto) 1 Squamous Epi Cells Auto 2 Urine Mucus (Auto) RARE Urine Ascorbic Acid NEGATIVE 07/19/18 05:00 WBC RBC Hgb Hct MCV MCH MCHC RDW Plt Count Seg Neutrophils % Lymphocytes % Monocytes % Eosinophils % Basophils % Absolute Neutrophils Absolute Lymphocytes Absolute Monocytes Absolute Eosinophils Absolute Basophils Sodium Potassium Chloride Carbon Dioxide Anion Gap BUN Creatinine Est GFR ( Amer) Est GFR (Non-Af Amer) Glucose Calcium Total Bilirubin Direct Bilirubin Neonat Total Bilirubin Neonat Direct Bilirubin Neonat Indirect Bili AST ALT Alkaline Phosphatase Creatine Kinase CK-MB (CK-2) Troponin I Total Protein Albumin Lipase 108.7 Serum HCG, Qual Urine Color Urine Appearance Urine pH Ur Specific [place] Urine Protein Urine Glucose (UA) Urine Ketones Urine Blood Urine Nitrite Urine Bilirubin Urine Urobilinogen Ur Leukocyte Esterase Urine WBC (Auto) Urine RBC (Auto) Squamous Epi Cells Auto Urine Mucus (Auto) Urine Ascorbic Acid Chest X-Ray 07/18/18 23:29 IMPRESSION: Clear lungs. Renal Ultrasound 07/19/18 01:50 IMPRESSION: 1. Normal renal sonogram. Abdomen/Pelvis CT 07/19/18 07:18 IMPRESSION: 1. There is a punctuate nonobstructive calculus of the midportion of the right kidney. There are small calcifications in the pelvis, likely phleboliths, without evidence of ureteral calculus or hydronephrosis to explain flank pain. 2. Normal appendix. 3. Bilateral pars defects of L5. Patient has been here in the ER for almost 8 hours. Has had multiple cardiac labs which are negative. 2 EKGs which are unremarkable for acute OR. She has had a renal ultrasound which is normal followed by a CT scan which shows no significant pathology other than a mid kidney nonobstructing stone. At this time I do not understand why she is having the symptoms however I do believe that all of the major emergencies have been ruled out at this time. Patient is stable for outpatient follow-up. - Vital Signs Vital signs: Temp Pulse Resp BP Pulse Ox 97.8 F 101 H 11 L 130/89 H 97 07/18/18 23:27 07/18/18 23:27 07/19/18 07:31 07/19/18 07:31 07/19/18 07:31 - Laboratory Result Diagrams: 07/18/18 23:20 07/18/18 23:20 Laboratory results interpreted by me: 07/18/18 07/18/18 23:20 23:20 RDW 15.2 H Ur Leukocyte Esterase TRACE H - EKG Interpretation by Ok EKG shows normal: Sinus rhythm, [place], Intervals, QRS Complexes, ST-T Waves Discharge - Discharge Clinical Impression: Flank pain Abdominal pain Qualifiers: Abdominal location: generalized Qualified Code(s): R10.84 - Generalized abdominal pain Condition: Good Disposition: HOME, SELF-CARE Instructions: Abdominal Pain ([facility]), Chest Pain of Unclear Cause ([facility]), Kidney Stone ([facility]) Referrals: SUDHAKAR GRIFFITH PA-C [PHYSICIAN DOOR TO DOOR SALES REPRESENTATIVE] - Follow up in 3-5 days
[2018-07-19] MEDS: ONDANSETRON 4 MG TAB.RAPDIS PO ONE ×2 (07:41→07:44)
--- NOTE | 2018-07-19 08:05 | EKG REPORT ---
SEVERITY:- ABNORMAL ECG - SINUS RHYTHM FIRST DEGREE AV BLOCK : Confirmed by: Sergio Mueller MD 19-Jul-2018 08:03:51
--- NOTE | 2018-07-19 08:41 | RADIOLOGY REPORT (SQ) ---
EXAM DESCRIPTION: CT ABD/PELVIS NO ORAL OR IV COMPLETED DATE/TIME: 07/19/2018 8:22 am REASON FOR STUDY: epigastric, chest and right flank pain COMPARISON: None. TECHNIQUE: CT scan of the abdomen and pelvis performed without intravenous or oral contrast. Images reviewed with lung, soft tissue, and bone windows. Reconstructed coronal and sagittal MPR images revi ewed. All images stored on PACS. All CT scanners at this facility use dose modulation, iterative reconstruction, and/or weight based d osing when appropriate to reduce radiation dose to as low as reasonably achievable (ALARA). [facility]: Dose Right [facility]: CareDose [facility]: Dose Right [facility]: Teradose 4D [facility]: Smart Gov[employer] RADIATION DOSE: CT Rad equipment meets quality standard of care and radiation dose reduction techniq ues were employed. CTDIvol: 18.0 mGy. DLP: 1008 mGy-cm.mGy. LIMITATIONS: None. FINDINGS: LOWER CHEST: No significant findings. No nodules or infiltrates. NON-CONTRASTED LIVER, SPLEEN, ADRENALS: Evaluation limited by lack of IV contrast. No identified sign ificant masses. PANCREAS: No masses. No peripancreatic inflammatory changes. GALLBLADDER: Surgically absent. RIGHT KIDNEY AND URETER: No suspicious masses. Assessment limited by lack of IV contrast. There is a punctuate nonobstructive calculus of the midportion of the right kidney. No hydronephrosis or hyd roureter. LEFT KIDNEY AND URETER: No suspicious masses. Assessment limited by lack of IV contrast. No signifi cant calcifications. No hydronephrosis or hydroureter. AORTA AND RETROPERITONEUM: No aneurysm. No retroperitoneal masses or adenopathy. BOWEL AND PERITONEAL CAVITY: No obvious masses or inflammatory changes. No free fluid. APPENDIX: Normal. PELVIS, BLADDER, AND ABDOMINAL WALL:Multiple small rounded calcifications, likely phleboliths, in the pelvis. No abnormal masses. No free fluid. Bladder normal. BONES: Bilateral pars defects at L5. OTHER: No other significant finding. IMPRESSION: 1. There is a punctuate nonobstructive calculus of the midportion of the right kidney. There are small calcifications in the pelvis, likely phleboliths, without evidence of ureteral calcu maricel or hydronephrosis to explain flank pain. 2. Normal appendix. 3. Bilateral pars defects of L5. COMMENT: Quality ID # [id number]: Final reports with documentation of one or more dose reduction techniques (e.g., Automated exposure control, adjustment of the mA and/or kV according to patient size, use of iterative reconstruction technique) TECHNICAL DOCUMENTATION: JOB ID: [id number] [employer]- All Rights Reserved Reading location - IP/workstation name: [email or web address]
[2018-07-19 09:08] VITALS: BP 120/77
--- NOTE | 2018-07-19 13:57 | EKG REPORT ---
SEVERITY:- BORDERLINE ECG - SINUS RHYTHM BORDERLINE INFERIOR Q WAVES : Confirmed by: Sergio Mueller MD 19-Jul-2018 13:56:52
== END 2018-07-19 09:08 | disposition home or self-care (01) ==
LOC: ER 22:58
DX: N20.0 Calculus of kidney (principal); R10.84 Generalized abdominal pain; R07.9 Chest pain, unspecified; R51 Headache; R11.0 Nausea; G89.29 Other chronic pain; F17.210 Nicotine dependence, cigarettes, uncomplicated; I25.2 Old myocardial infarction; I10 Essential (primary) hypertension; J44.9 Chronic obstructive pulmonary disease, unspecified; Z88.1 Allergy status to other antibiotic agents; Z91.018 Allergy to other foods; Z88.8 Allergy status to other drugs, medicaments and biological substances; Z91.040 Latex allergy status; Z88.0 Allergy status to penicillin; Z91.041 Radiographic dye allergy status; Z90.49 Acquired absence of other specified parts of digestive tract; Z90.710 Acquired absence of both cervix and uterus; Z98.51 Tubal ligation status
CPT/HCPCS: 93005; 99284; 36415; 87086; 82553; 82550; 83690; 84703; 85025; 87088; 80053; 81001; 84484; 71045; 76770; 74176; 93010; S0119

== ENCOUNTER 2018-07-21 01:12 | Emergency (ER) | payer BC ==
--- NOTE | 2018-07-21 02:00 | ER Document Report ---
ED Medical Screen (RME) - General Chief Complaint: Low Blood Sugar Stated Complaint: BLOOD SUGAR ISSUE Time Seen by Provider: 07/21/18 01:52 Primary Care Provider: KRISTI KEEN MD [Primary Care Provider] - Follow up as needed Notes: 43-year-old female with chief complaint of hypoglycemia. She states after 2 hours after eating her blood sugar starts dropping. Denies history of the same. States low she took was 68. She is not on any medications for diabetes, denies fever/chills, denies chest pain, shortness of breath, nausea/vomiting. No current symptoms. TRAVEL OUTSIDE OF THE [place] IN LAST 30 DAYS: No - Related Data Allergies/Adverse Reactions: Cephalosporins Allergy (Severe, Verified 07/21/18:21) Throat itching and swelling ciprofloxacin [From Cipro] Allergy (Severe, Verified 07/21/18:21) Blistering in mouth and throat ethyl alcohol Allergy (Severe, Verified 07/21/18:21) Shortness of Breath, cough, difficulty breathing fluticasone [From Flonase] Allergy (Severe, Verified 07/21/18:21) Migraine, nose bleed latex Allergy (Severe, Verified 07/21/18 01:21) RASH Penicillins Allergy (Severe, Verified 07/21/18:21) Throat swelling, difficulty breathing cephalexin [From Keflex] Allergy (Verified 07/21/18:21) Throat swelling, difficulty breathing dexlansoprazole [From Dexilant] Allergy (Verified 07/21/18:21) erythromycin base [From Erythrocin] Allergy (Verified 07/21/18:21) Hives fluoxetine [From Prozac] Allergy (Verified 07/21/18:21) prednisone Allergy (Verified 07/21/18:21) Tachycardia sertraline [From Zoloft] Allergy (Verified 07/21/18:21) aspirin Adverse Reaction (Verified 07/21/18:21) N&V Sulfa (Sulfonamide Antibiotics) Adverse Reaction (Verified 07/21/18:21) See Comments IV dye Allergy (Uncoded 07/21/18:21) arrhythmia Past Medical History - Social History Family history: None - Past Medical History Cardiac Medical History: Reports: Hx Heart Attack - 2010, Hx Hypertension - HX OF Denies: Hx Coronary Artery Disease Pulmonary Medical History: Reports: Hx Asthma, Hx COPD - INHALERS Denies: Hx Bronchitis, Hx Pneumonia Neurological Medical History: Reports: Hx Migraine, Hx Seizures - NO MEDS - LAST 2013 - NOT CURRENT. Denies: Hx Cerebrovascular Accident Renal/ Medical History: Denies: Hx Peritoneal Dialysis Musculoskeltal Medical History: Denies Hx Arthritis Past Surgical History: Reports: Hx Abdominal Surgery, Hx Cholecystectomy, Hx Gynecologic Surgery, Hx Hysterectomy, Hx Nose Surgery, Hx Thyroid Surgery, Hx Tubal Ligation - Immunizations Immunizations up to date: Yes Hx Diphtheria, Pertussis, Tetanus Vaccination: No History of Influenza Vaccine for 11/2016 - 04/2017 Season: No Physical Exam - Vital signs Vitals: Temp Pulse Resp BP Pulse Ox 98.7 F 110 H 18 141/91 H 97 07/21/18 01:07/21/18 01:07/21/18 01:07/21/18 01:07/21/18 01:23 - General General appearance: Appears well In distress: None - Cardiovascular Rhythm: Regular. No: Tachycardia Heart sounds: Normal auscultation, S1 appreciated, S2 appreciated Course - Re-evaluation Re-evalutation: Blood glucose check in triage was greater than 100. Is symptomatic at this time. Not tachycardic on my auscultation. Work-up pending. I have greeted and performed a rapid initial assessment of this patient. A comprehensive ED assessment and evaluation of the patient, analysis of test results and completion of the medical decision making process will be conducted by additional ED providers. - Vital Signs Vital signs: Temp Pulse Resp BP Pulse Ox 98.7 F 110 H 18 141/91 H 97 07/21/18 01:07/21/18 01:07/21/18 01:07/21/18 01:07/21/18 01:23 Doctor's Discharge - Discharge Referrals: KRISTI KEEN MD [Primary Care Provider] - Follow up as needed
[2018-07-21 02:22] LABS: ABSOLUTE BASOPHILS # (AUTO) 0.1 10^3/uL (0.0-0.2); ABSOLUTE EOSINOPHILS # (AUTO) 0.2 10^3/uL (0.0-0.6); ABSOLUTE LYMPHOCYTES (AUTO) 1.9 10^3/uL (0.5-4.7); ABSOLUTE MONOCYTES (AUTO) 0.8 10^3/uL (0.1-1.4); ABSOLUTE NEUT (AUTO) 5.7 10^3/uL (1.7-8.2); BASOPHILS % (AUTO) 0.8 % (0-2); EOSINOPHILS % (AUTO) 2.7 % (0-6); HEMATOCRIT 36.9 % (36.0-47.0); HEMOGLOBIN 12.6 g/dL (12.0-15.5); LYMPHOCYTES % (AUTO) 21.7 % (13-45); MEAN CORPUSCULAR HEMOGLOBIN 28.8 pg (27.0-33.4); MEAN CORPUSCULAR HGB CONC 34.1 g/dL (32.0-36.0); MEAN CORPUSCULAR VOLUME 84 fl (80-97); PLATELET COUNT 268 10^3/uL (150-450); RED BLOOD COUNT 4.37 10^6/uL (3.72-5.28); RED CELL DISTRIBUTION WIDTH 15.5 % (11.5-14.0); SEGMENTED NEUTROPHILS % (AUTO) 65.8 % (42-78); TOTAL CELLS COUNTED % (AUTO) 100 %; WHITE BLOOD COUNT 8.7 10^3/uL (4.0-10.5)
[2018-07-21 02:47] LABS: ANION GAP 9 (5-19); BLOOD UREA NITROGEN 12 mg/dL (7-20); CALCIUM 9.6 mg/dL (8.4-10.2); CARBON DIOXIDE 26 mmol/L (22-30); CHLORIDE 106 mmol/L (98-107); GLUCOSE 106 mg/dL (75-110); POTASSIUM 4.5 mmol/L (3.6-5.0); SODIUM 141.2 mmol/L (137-145)
[2018-07-21 03:35] LABS: APPEARANCE,URINE CLEAR; BILIRUBIN,URINE NEGATIVE (NEGATIVE); COLOR,URINE STRAW; GLUCOSE, URINE NEGATIVE (NEGATIVE); KETONES,URINE NEGATIVE (NEGATIVE); LEUKOCYTE ESTERASE,URINE NEGATIVE (NEGATIVE); NITRITE,URINE NEGATIVE (NEGATIVE); PROTEIN,URINE NEGATIVE (NEGATIVE); URINE SPECIFIC GRAVITY 1.009; UROBILINOGEN,URINE NEGATIVE mg/dL (<2.0)
--- NOTE | 2018-07-21 03:59 | ER Document Report ---
ED Blood Sugar Problem - General Chief Complaint: Low Blood Sugar Stated Complaint: BLOOD SUGAR ISSUE Time Seen by Provider: 07/21/18 01:52 Primary Care Provider: KRISTI KEEN MD [Primary Care Provider] - Follow up as needed Notes: Patient is a 43-year-old female with chief complaint of hypoglycemia. She states after 2 hours after eating her blood sugar starts dropping. Denies history of the same. She states the lowest reading she took was 68. She reports she has been frequently checking her blood sugars throughout the week. She states she "got the idea from my fiancee" to do so. She states she went to her primary care provider and asked for an A1c yesterday and it is still pending. She is not on any medications for diabetes, denies fever/chills, denies chest pain, shortness of breath, nausea/vomiting. She denies drinking any alcohol. No current symptoms. TRAVEL OUTSIDE OF THE [place] IN LAST 30 DAYS: No - Related Data Allergies/Adverse Reactions: Cephalosporins Allergy (Severe, Verified 07/21/18 01:21) Throat itching and swelling ciprofloxacin [From Cipro] Allergy (Severe, Verified 07/21/18:21) Blistering in mouth and throat ethyl alcohol Allergy (Severe, Verified 07/21/18:21) Shortness of Breath, cough, difficulty breathing fluticasone [From Flonase] Allergy (Severe, Verified 07/21/18 01:21) Migraine, nose bleed latex Allergy (Severe, Verified 07/21/18 01:21) RASH Penicillins Allergy (Severe, Verified 07/21/18:21) Throat swelling, difficulty breathing cephalexin [From Keflex] Allergy (Verified 07/21/18 01:21) Throat swelling, difficulty breathing dexlansoprazole [From Dexilant] Allergy (Verified 07/21/18:21) erythromycin base [From Erythrocin] Allergy (Verified 07/21/18:21) Hives fluoxetine [From Prozac] Allergy (Verified 07/21/18:21) prednisone Allergy (Verified 07/21/18:21) Tachycardia sertraline [From Zoloft] Allergy (Verified 07/21/18:21) aspirin Adverse Reaction (Verified 07/21/18:21) N&V Sulfa (Sulfonamide Antibiotics) Adverse Reaction (Verified 07/21/18 01:21) See Comments IV dye Allergy (Uncoded 07/21/18 01:21) arrhythmia Past Medical History - General Information source: Patient - Social History Smoking Status: Never Smoker Chew tobacco use (# tins/day): No Frequency of alcohol use: None Drug Abuse: None Lives with: Family Family History: Reviewed & Not Pertinent Patient has suicidal ideation: No Patient has homicidal ideation: No - Past Medical History Cardiac Medical History: Reports: Hx Heart Attack - 2010, Hx Hypertension - HX OF Denies: Hx Coronary Artery Disease Pulmonary Medical History: Reports: Hx Asthma, Hx COPD - INHALERS Denies: Hx Bronchitis, Hx Pneumonia Neurological Medical History: Reports: Hx Migraine, Hx Seizures - NO MEDS - LAST 2013 - NOT CURRENT. Denies: Hx Cerebrovascular Accident Renal/ Medical History: Denies: Hx Peritoneal Dialysis Musculoskeletal Medical History: Denies Hx Arthritis Past Surgical History: Reports: Hx Abdominal Surgery, Hx Cholecystectomy, Hx Gynecologic Surgery, Hx Hysterectomy, Hx Nose Surgery, Hx Thyroid Surgery, Hx Tubal Ligation - Immunizations Immunizations up to date: Yes Hx Diphtheria, Pertussis, Tetanus Vaccination: No Review of Systems - Review of Systems Constitutional: No symptoms reported EENT: No symptoms reported Cardiovascular: No symptoms reported Respiratory: No symptoms reported Gastrointestinal: No symptoms reported Genitourinary: No symptoms reported Female Genitourinary: No symptoms reported Musculoskeletal: No symptoms reported Skin: No symptoms reported Hematologic/Lymphatic: No symptoms reported Neurological/Psychological: No symptoms reported Physical Exam - Vital signs Vitals: Temp Pulse Resp BP Pulse Ox 98.7 F 110 H 18 141/91 H 97 07/21/18 01:23 07/21/18 01:23 07/21/18 01:23 07/21/18 01:23 07/21/18 01:23 - Notes Notes: GENERAL: Alert, interacts well. No acute distress. HEAD: Normocephalic, atraumatic. EYES: Pupils equal, round, and reactive to light. Extraocular movements intact. ENT: Oral mucosa moist, tongue midline. Oropharynx unremarkable. Airway patent. NECK: Full range of motion. Supple. Trachea midline. LUNGS: Clear to auscultation bilaterally, no wheezes, rales, or rhonchi. No res piratory distress. HEART: Regular rate and rhythm. No murmur ABDOMEN: Soft, non-tender. Non-distended. Bowel sounds present in all 4 quadrants. GENITOURINARY: Deferred EXTREMITIES: Moves all 4 extremities spontaneously. No edema, normal radial and dorsalis pedis pulses bilaterally. No cyanosis. BACK: no cervical, thoracic, lumbar midline tenderness. No saddle anesthesia, normal distal neurovascular exam. Moves all extremities in full range of motion. NEUROLOGICAL: Alert and oriented x3. Normal speech. Cranial nerves II through XII grossly intact. PSYCH: Talks persistently and has to be redirected. Slightly tangential conversation. SKIN: Warm, dry, normal turgor. No rashes or lesions noted. Course - Re-evaluation Re-evalutation: Patient is not tachycardic on my evaluation. She is alert and well-appearing. She has a preoccupation with her blood glucose despite the fact that she is not a diabetic, not on medications for blood sugar, does not have a history of alcoholism or history of liver abnormality, and has never been told specifically to be concerned about this. She has taken this upon herself. Blood glucose initially and on recheck are unremarkable. Patient does not have chest pain, fever, evidence of sepsis, or any reason for me to be concerned that she might develop hypoglycemia with lack of response of her liver to return her glucose to normal levels. I did explain that she can eat more regular meals with smaller portions to keep her sugar more steady, however I also explained that I do not have any concern that she will become hypoglycemic upon discharge. Patient already has primary care follow-up with this, I did provide her with a copy of her reports from today and a few days ago including abnormal liver function test panel, patient states satisfaction with these instructions and findings, states she will follow-up and return for any concerning symptoms which were also discussed. - Vital Signs Vital signs: Temp Pulse Resp BP Pulse Ox 98.1 F 81 20 120/75 100 07/21/18 03:58 07/21/18 03:58 07/21/18 03:58 07/21/18 03:58 07/21/18 03:58 - Laboratory Result Diagrams: 07/21/18 02:07 07/21/18 02:07 Laboratory results interpreted by me: 07/21/18 02:07 RDW 15.5 H Discharge - Discharge Clinical Impression: Hypoglycemia Condition: Stable Disposition: HOME, SELF-CARE Additional Instructions: No concerning variances with your blood sugar are noted. No concerning underlying cause is noted at this time as well. There does not appear to be any concern that low blood glucose levels will be a problem going forward. Follow-up with your provider with your labs and with your records data from your blood sugar checks for additional management. Return for any concerning symptoms including passing out, chest pain, fever, vomiting, or any other concerning or worsening symptoms. Referrals: KRISTI KEEN MD [Primary Care Provider] - Follow up as needed
[2018-07-21 04:05] VITALS: BP 120/75
== END 2018-07-21 04:07 | disposition home or self-care (01) ==
LOC: ER 01:12
DX: E16.2 Hypoglycemia, unspecified (principal); Z88.3 Allergy status to other anti-infective agents; Z91.040 Latex allergy status; Z88.0 Allergy status to penicillin; Z88.2 Allergy status to sulfonamides; Z88.6 Allergy status to analgesic agent; Z90.49 Acquired absence of other specified parts of digestive tract; Z90.710 Acquired absence of both cervix and uterus; I25.2 Old myocardial infarction
CPT/HCPCS: 36415; 80048; 81001; 81025; 82962; 85025; 99283

== ENCOUNTER → 2018-07-22 | Outpatient (CLI) | payer BC ==
--- NOTE | 2018-07-22 15:33 | RADIOLOGY REPORT (SQ) ---
EXAM DESCRIPTION: MRI LUMBAR SPINE WITHOUT COMPLETED DATE/TIME: 07/22/2018 3:16 pm REASON FOR STUDY: M54.16 RADICULOPATHY M54.16 RADICULOPATHY, LUMBAR REGION COMPARISON: CT dated 05/11/2018. TECHNIQUE: Sagittal and Axial imaging includes T1, T2, STIR and gradient echo sequences. Coronal T2/ HASTE imaging. LIMITATIONS: None. FINDINGS: VISUALIZED UPPER ABDOMEN: Limited evaluation. No acute or suspicious findings suggested. SEGMENTATION: No transitional anatomy. The lowest well-developed disc space is labeled L5-S1. ALIGNMENT: Anatomic. VERTEBRAE: Intact. BONE MARROW: Normal. No marrow replacement or reactive changes. DISC SIGNAL: Normal. No significant abnormal signal or loss of height. POSTERIOR ELEMENTS: Generally intact. No pars defect evident. HARDWARE: None in the spine. CORD AND CONUS: Normal in size and signal intensity. Conus at the appropriate level. SOFT TISSUES: No aortic aneurysm seen. No bulky retroperitoneal adenopathy or mass. No paraspinal mas s or fluid. L1-L2: No significant spinal stenosis or exit foraminal stenosis. L2-L3: No significant spinal stenosis or exit foraminal stenosis. L3-L4: No significant spinal stenosis or exit foraminal stenosis. L4-L5: No significant spinal stenosis or exit foraminal stenosis. L5-S1: No significant spinal stenosis or exit foraminal stenosis. LOWER THORACIC: Incompletely imaged. No stenosis seen. SACRUM: Visualized upper sacrum intact. OTHER: No other significant findings. IMPRESSION: NORMAL MRI LUMBAR SPINE. TECHNICAL DOCUMENTATION: JOB ID: [id number] [employer]- All Rights Reserved Reading location - IP/workstation name: [email or web address]
--- NOTE | 2018-07-22 15:41 | RADIOLOGY REPORT (SQ) ---
EXAM DESCRIPTION: CERV SP 6 OR MORE COMPLETED DATE/TIME: 07/22/2018 3:32 pm REASON FOR STUDY: M54.16 RADICULOPATHY, LUMBAR REGION M54.16 RADICULOPATHY, LUMBAR REGION COMPARISON: None. NUMBER OF VIEWS: Seven views. TECHNIQUE: AP, lateral, obliques, flexion, extension, and odontoid radiographic images acquired of t he cervical spine. LIMITATIONS: None. FINDINGS: MINERALIZATION: Normal. ALIGNMENT: There is reversal of the normal cervical lordosis. FLEXION/EXTENSION: There is anterior translation the C4 on C5 in flexion. VERTEBRAE: Vertebral bodies of normal height. DISCS: No significant osteophytes or sclerosis. Disc height maintained. FORAMINA: No osteophytes or foraminal narrowing. LATERAL AND POSTERIOR ELEMENTS: Facets, lateral masses, and spinous processes without significant fin dings. HARDWARE: None in the spine. SOFT TISSUES: No masses or calcifications. Lung apices clear. OTHER: No other significant finding. IMPRESSION: Reversal of the normal cervical lordosis. Mild anterior translation of C4 on C5 in flexion. TECHNICAL DOCUMENTATION: JOB ID: [id number] [employer]- All Rights Reserved Reading location - IP/workstation name: [email or web address]
== END ==
LOC: RAD 14:28
PROVIDERS: ATTEND Neurological Surgery
DX: M54.16 Radiculopathy, lumbar region (principal)
CPT/HCPCS: 72052; 72148

== ENCOUNTER 2018-07-27 18:27 | Emergency (ER) | payer BC ==
--- NOTE | 2018-07-27 19:18 | ER Document Report ---
ED Medical Screen (RME) - General Chief Complaint: Chest Pain Stated Complaint: CHEST PAIN Time Seen by Provider: 07/27/18 19:09 Primary Care Provider: KRISTI KEEN MD [Primary Care Provider] - Follow up as needed Mode of Arrival: Ambulatory Information source: Patient Notes: 42-year-old female presented to ED for complaint of chest pain radiating to the left shoulder since 5 PM. 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 She also had left jaw pain that started about 530 but she thinks this is due to something else. She was seen at [facility] and they sent her to the emergency room for these complaints. Patient is alert oriented respirations regular and unlabored speaking in full sentences walks with even steady gait. She has an extensive medical and surgical history you need to review. I have greeted and performed a rapid initial assessment of this patient. A comprehensive ED assessment and evaluation of the patient, analysis of test results and completion of medical decision making process will be conducted by an additional ED providers. Dictation of this chart was performed using voice recognition software; therefore, there may be some unintended grammatical errors. TRAVEL OUTSIDE OF THE [place] IN LAST 30 DAYS: No - Related Data Allergies/Adverse Reactions: Cephalosporins Allergy (Severe, Verified 07/27/18 18:28) Throat itching and swelling ciprofloxacin [From Cipro] Allergy (Severe, Verified 07/27/18 18:28) Blistering in mouth and throat ethyl alcohol Allergy (Severe, Verified 07/27/18 18:28) Shortness of Breath, cough, difficulty breathing fluticasone [From Flonase] Allergy (Severe, Verified 07/27/18 18:28) Migraine, nose bleed latex Allergy (Severe, Verified 07/27/18 18:28) RASH Penicillins Allergy (Severe, Verified 07/27/18 18:28) Throat swelling, difficulty breathing cephalexin [From Keflex] Allergy (Verified 07/27/18 18:28) Throat swelling, difficulty breathing dexlansoprazole [From Dexilant] Allergy (Verified 07/27/18 18:28) erythromycin base [From Erythrocin] Allergy (Verified 07/27/18 18:28) Hives fluoxetine [From Prozac] Allergy (Verified 07/27/18 18:28) prednisone Allergy (Verified 07/27/18 18:28) Tachycardia sertraline [From Zoloft] Allergy (Verified 07/27/18 18:28) aspirin Adverse Reaction (Verified 07/27/18 18:28) N&V Sulfa (Sulfonamide Antibiotics) Adverse Reaction (Verified 07/27/18 18:28) See Comments IV dye Allergy (Uncoded 07/27/18 18:28) arrhythmia Past Medical History - Social History Family history: None - Past Medical History Cardiac Medical History: Reports: Hx Heart Attack - 2009, Hx Hypertension - HX OF Denies: Hx Coronary Artery Disease Pulmonary Medical History: Reports: Hx Asthma, Hx COPD - INHALERS Denies: Hx Bronchitis, Hx Pneumonia Neurological Medical History: Reports: Hx Migraine, Hx Seizures - NO MEDS - LAST 2013 - NOT CURRENT. Denies: Hx Cerebrovascular Accident Renal/ Medical History: Denies: Hx Peritoneal Dialysis Musculoskeltal Medical History: Denies Hx Arthritis Past Surgical History: Reports: Hx Abdominal Surgery, Hx Cholecystectomy, Hx Gynecologic Surgery, Hx Hysterectomy, Hx Nose Surgery, Hx Thyroid Surgery, Hx Tubal Ligation - Immunizations Immunizations up to date: Yes Hx Diphtheria, Pertussis, Tetanus Vaccination: No History of Influenza Vaccine for 11/2016 - 04/2017 Season: No Physical Exam - Vital signs Vitals: Temp Pulse Resp BP Pulse Ox 98.4 F 96 14 125/87 H 99 07/27/18 18:52 07/27/18 18:52 07/27/18 18:52 07/27/18 18:52 07/27/18 18:52 Course - Vital Signs Vital signs: Temp Pulse Resp BP Pulse Ox 98.4 F 96 14 125/87 H 99 07/27/18 18:52 07/27/18 18:52 07/27/18 18:52 07/27/18 18:52 07/27/18 18:52 Doctor's Discharge - Discharge Referrals: KRISTI KEEN MD [Primary Care Provider] - Follow up as needed
[2018-07-27] MEDS ORDERED: ASPIRIN 81 MG TABLET, CHEWABLE PO ONE (19:20)
--- NOTE | 2018-07-27 19:36 | RADIOLOGY REPORT (SQ) ---
EXAM DESCRIPTION: CHEST 2 VIEWS COMPLETED DATE/TIME: 07/27/2018 7:26 pm REASON FOR STUDY: chest pain COMPARISON: 07/19/2018 EXAM PARAMETERS: NUMBER OF VIEWS: two views TECHNIQUE: Digital Frontal and Lateral radiographic views of the chest acquired. RADIATION DOSE: NA LIMITATIONS: none FINDINGS: LUNGS AND PLEURA: No opacities, masses or pneumothorax. No pleural effusion. MEDIASTINUM AND HILAR STRUCTURES: No masses or contour abnormalities. HEART AND VASCULAR STRUCTURES: Heart normal size. No evidence for failure. BONES: No acute findings. HARDWARE: None in the chest. OTHER: No other significant finding. IMPRESSION: NO ACUTE RADIOGRAPHIC FINDING IN THE CHEST. TECHNICAL DOCUMENTATION: JOB ID: [id number] [employer]- All Rights Reserved Reading location - IP/workstation name: [email or web address]
[2018-07-27 20:07] LABS: ABSOLUTE BASOPHILS # (AUTO) 0.1 10^3/uL (0.0-0.2); ABSOLUTE EOSINOPHILS # (AUTO) 0.3 10^3/uL (0.0-0.6); ABSOLUTE LYMPHOCYTES (AUTO) 2.1 10^3/uL (0.5-4.7); ABSOLUTE MONOCYTES (AUTO) 0.6 10^3/uL (0.1-1.4); ABSOLUTE NEUT (AUTO) 5.9 10^3/uL (1.7-8.2); BASOPHILS % (AUTO) 0.8 % (0-2); EOSINOPHILS % (AUTO) 3.3 % (0-6); HEMATOCRIT 39.7 % (36.0-47.0); HEMOGLOBIN 13.4 g/dL (12.0-15.5); LYMPHOCYTES % (AUTO) 23.3 % (13-45); MEAN CORPUSCULAR HEMOGLOBIN 28.9 pg (27.0-33.4); MEAN CORPUSCULAR HGB CONC 33.7 g/dL (32.0-36.0); MEAN CORPUSCULAR VOLUME 86 fl (80-97); MONOCYTES % (AUTO) 6.9 % (3-13); PLATELET COUNT 280 10^3/uL (150-450); RED BLOOD COUNT 4.64 10^6/uL (3.72-5.28); RED CELL DISTRIBUTION WIDTH 15.9 % (11.5-14.0); SEGMENTED NEUTROPHILS % (AUTO) 65.7 % (42-78); TOTAL CELLS COUNTED % (AUTO) 100 %
[2018-07-27 20:10] LABS: APPEARANCE,URINE CLEAR; BILIRUBIN,URINE NEGATIVE (NEGATIVE); COLOR,URINE STRAW; GLUCOSE, URINE NEGATIVE (NEGATIVE); KETONES,URINE NEGATIVE (NEGATIVE); LEUKOCYTE ESTERASE,URINE SMALL (NEGATIVE); NITRITE,URINE NEGATIVE (NEGATIVE); PROTEIN,URINE NEGATIVE (NEGATIVE); URINE SPECIFIC GRAVITY 1.003; UROBILINOGEN,URINE NEGATIVE mg/dL (<2.0)
[2018-07-27 20:23] LABS: ALANINE AMINOTRANSFERASE 22 U/L (9-52); ALBUMIN 4.8 g/dL (3.5-5.0); ALKALINE PHOSPHATASE 78 U/L (38-126); ANION GAP 9 (5-19); ASPARTATE AMINO TRANSFERASE 20 U/L (14-36); BILIRUBIN,DIRECT 0.2 mg/dL (0.0-0.4); BILIRUBIN,TOTAL 0.3 mg/dL (0.2-1.3); BLOOD UREA NITROGEN 11 mg/dL (7-20); CALCIUM 10.4 mg/dL (8.4-10.2); CARBON DIOXIDE 27 mmol/L (22-30); CHLORIDE 104 mmol/L (98-107); GLUCOSE 98 mg/dL (75-110); LIPASE 149.3 U/L (23-300); POTASSIUM 4.3 mmol/L (3.6-5.0); SODIUM 140.4 mmol/L (137-145); TOTAL PROTEIN 7.9 g/dL (6.3-8.2)
[2018-07-27 20:35] LABS: CREATINE KINASE MB 0.44 ng/mL (<4.55)
[2018-07-27 20:36] LABS: TROPONIN I < 0.012 ng/mL
[2018-07-27] MEDS ORDERED: ACETAMINOPHEN 325 MG TABLET PO ONE (20:46)
[2018-07-27] MEDS ORDERED: ONDANSETRON 4 MG TAB.RAPDIS PO ONE (20:46)
--- NOTE | 2018-07-27 22:56 | ER Document Report ---
ED General - General Chief Complaint: Chest Pain Stated Complaint: CHEST PAIN Time Seen by Provider: 07/27/18 19:09 Primary Care Provider: KRISTI KEEN MD [COMMUNITY BASED STAFF] - 07/29/18 Mode of Arrival: Ambulatory Notes: Patient is a 43-year-old female presents with complaint of pain over the left upper chest. She went to her doctor who told her to come to the ER for further evaluation. No history of coronary disease. No fevers. She was recently diagnosed with diabetes but has not yet been started on diabetes medications and has a glucose monitor on. This is being performed by an regional retail sales manager. She denies any vomiting. No difficulty breathing. She says that she has had this pain in the past intermittently. She says she sometimes gets it when she gets hypoglycemic. Also says that she has neuropathy is unsure if it could be related to that. She says it is worse with certain movements. Is not pleuritic. Does have history of acid reflux and says that her pain could also be related to that. TRAVEL OUTSIDE OF THE [place] IN LAST 30 DAYS: No - Related Data Allergies/Adverse Reactions: Cephalosporins Allergy (Severe, Verified 07/27/18 18:28) Throat itching and swelling ciprofloxacin [From Cipro] Allergy (Severe, Verified 07/27/18 18:28) Blistering in mouth and throat ethyl alcohol Allergy (Severe, Verified 07/27/18 18:28) Shortness of Breath, cough, difficulty breathing fluticasone [From Flonase] Allergy (Severe, Verified 07/27/18 18:28) Migraine, nose bleed latex Allergy (Severe, Verified 07/27/18 18:28) RASH Penicillins Allergy (Severe, Verified 07/27/18 18:28) Throat swelling, difficulty breathing cephalexin [From Keflex] Allergy (Verified 07/27/18 18:28) Throat swelling, difficulty breathing dexlansoprazole [From Dexilant] Allergy (Verified 07/27/18 18:28) erythromycin base [From Erythrocin] Allergy (Verified 07/27/18 18:28) Hives fluoxetine [From Prozac] Allergy (Verified 07/27/18 18:28) prednisone Allergy (Verified 07/27/18 18:28) Tachycardia sertraline [From Zoloft] Allergy (Verified 07/27/18 18:28) aspirin Adverse Reaction (Verified 07/27/18 18:28) N&V Sulfa (Sulfonamide Antibiotics) Adverse Reaction (Verified 07/27/18 18:28) See Comments IV dye Allergy (Uncoded 07/27/18 18:28) arrhythmia Past Medical History - General Information source: Patient - Social History Smoking Status: Current Every Day Smoker Frequency of alcohol use: None Drug Abuse: None Family History: Reviewed & Not Pertinent Patient has suicidal ideation: No Patient has homicidal ideation: No - Past Medical History Cardiac Medical History: Reports: Hx Heart Attack - 2009, Hx Hypertension - HX OF Denies: Hx Coronary Artery Disease Pulmonary Medical History: Reports: Hx Asthma, Hx COPD - INHALERS Denies: Hx Bronchitis, Hx Pneumonia Neurological Medical History: Reports: Hx Migraine, Hx Seizures - NO MEDS - LAST 2013 - NOT CURRENT. Denies: Hx Cerebrovascular Accident Endocrine Medical History: Reports: Hx Diabetes Mellitus Type 2 Renal/ Medical History: Denies: Hx Peritoneal Dialysis Musculoskeletal Medical History: Denies Hx Arthritis Past Surgical History: Reports: Hx Abdominal Surgery, Hx Cholecystectomy, Hx Gynecologic Surgery, Hx Hysterectomy, Hx Nose Surgery, Hx Thyroid Surgery, Hx Tubal Ligation - Immunizations Immunizations up to date: Yes Hx Diphtheria, Pertussis, Tetanus Vaccination: No Review of Systems - Review of Systems Notes: My Normal Review Basic REVIEW OF SYSTEMS: CONSTITUTIONAL : Denies fever, chills, or sweats. Denies recent illness. EENT: Denies eye, ear, throat, or mouth pain or symptoms. Denies nasal or sinus congestion. CARDIOVASCULAR: Chest pain. RESPIRATORY: Denies cough, cold, or chest congestion. Denies shortness of breath, difficulty breathing, or wheezing. GASTROINTESTINAL: Denies abdominal pain. Denies nausea, vomiting, or diarrhea. MUSCULOSKELETAL: Denies neck or back pain or joint pain or swelling. SKIN: Denies rash or skin lesions.. NEUROLOGICAL: Denies altered mental status or loss of consciousness. Denies headache. Denies weakness or paralysis or loss of use of either side. Denies problems with gait or speech. Denies sensory or motor loss. ALL OTHER SYSTEMS REVIEWED AND NEGATIVE. Physical Exam - Vital signs Vitals: Temp Pulse Resp BP Pulse Ox 98.4 F 96 14 125/87 H 99 07/27/18 18:52 07/27/18 18:52 07/27/18 18:52 07/27/18 18:52 07/27/18 18:52 - Notes Notes: General Appearance: Well nourished, alert, cooperative, no acute distress, no obvious discomfort. Well appearing. Vitals: reviewed, See vital signs table. Eyes: PERRL, EOMI, Conjuctiva clear Chest wall: Pinpoint area of tenderness over the left upper chest wall that is very tender with even slight palpation over the area. Neck: Supple, no neck tenderness, No thyromegaly Lungs: No wheezing, No rales, No rhonci, No accessory muscle use, good air exchange bilaterally. Heart: Normal rate, Regular rythm, No murmur, no rub Abdomen: Normal BS, soft, No rigidity, No abdominal tenderness, No guarding, no rebound, no abdominal masses, no organomegaly Extremities: good pulses in all extremities, no swelling or tenderness in the extremities, no edema. Skin: warm, dry, appropriate color, no rash Neuro: speech clear, oriented x 3, normal affect, responds appropriately to questions. Course - Re-evaluation Re-evalutation: 07/27/18 23:51 Currently on exam patient has some chest pain over the left upper chest. She has the pain it is very tender over pinpoint area of her left chest. This is a pushed on the area she yells and pushes my hand away. Suggest as mostly musculoskeletal in nature. She does have some risk factors for heart disease and that she has a history of diabetes which was recently diagnosed. She is currently not on any medications for this and her blood sugar is 98. Feel patient is safe to be discharged home. She has a heart score of 2. I discussed the heart score with her and her risk modification based on this. I informed her that she should follow-up with her doctor later this week for reevaluation and potential outpatient stress testing. I encouraged her she should still have a low threshold to return to ER if she has recurrent worsening chest pain, difficulty breathing, diaphoresis, or she feels she is worsening in any way. Patient agrees with plan will be discharged home. Dictation of this chart was performed using voice recognition software; therefore, there may be some unintended grammatical errors. - Vital Signs Vital signs: Temp Pulse Resp BP Pulse Ox 98.5 F 92 16 121/80 99 07/28/18 00:04 07/28/18 00:04 07/28/18 00:04 07/28/18 00:04 07/28/18 00:04 - Laboratory Result Diagrams: 07/27/18 19:48 07/27/18 19:48 Laboratory results interpreted by me: 07/27/18 07/27/18 07/27/18 19:48 19:48 19:48 RDW 15.9 H Calcium 10.4 H Urine Blood SMALL H Ur Leukocyte Esterase SMALL H - EKG Interpretation by Me Additional EKG results interpreted by me: 07/27/18 22:55 EKG #1 is reviewed and interpreted by me. EKG shows sinus rhythm with a rate of [address] segment elevation or depression. No ischemic T wave inversions. NV interval is slightly prolonged. QRS duration and QT intervals are within normal range. No changes in comparison to old EKG from July 19, 2018. EKG #2 is reviewed and interpreted by me. EKG shows sinus rhythm with a rate of [address] segment elevation or depression. No ischemic T wave inversions. NV interval slightly prolonged. QRS duration and QT intervals are within normal range. Old EKG for comparison is from July 27, 2018. Discharge - Discharge Clinical Impression: Chest pain Qualifiers: Chest pain type: unspecified Qualified Code(s): R07.9 - Chest pain, unspecified Condition: Good Disposition: HOME, SELF-CARE Additional Instructions: Currently your work-up looking at your chest pain does not show any concerning findings. Your EKG and heart enzymes are normal. As discussed with you, you have a heart score below 3 and therefore is safe for you to be discharged home to follow-up outpatiently with your doctor for reevaluation and potential outpatient stress testing. You should still have a low threshold to return to the ER if you have worsening chest pain, difficulty breathing, sweating, or if you feel that your symptoms are worsening in any way. Referrals: KRISTI KEEN MD [COMMUNITY BASED STAFF] - 07/29/18
[2018-07-28 00:05] VITALS: BP 121/80
--- NOTE | 2018-07-28 08:18 | EKG REPORT ---
SEVERITY:- NORMAL ECG - SINUS RHYTHM : Confirmed by: Sergio Mueller MD 28-Jul-2018 08:17:50
--- NOTE | 2018-07-28 08:20 | EKG REPORT ---
SEVERITY:- ABNORMAL ECG - SINUS RHYTHM FIRST DEGREE AV BLOCK BORDERLINE INFERIOR Q WAVES : Confirmed by: Sergio Mueller MD 28-Jul-2018 08:18:55
== END 2018-07-28 00:03 | disposition home or self-care (01) ==
LOC: ER 18:27
DX: R07.9 Chest pain, unspecified (principal); E11.40 Type 2 diabetes mellitus with diabetic neuropathy, unspecified; I10 Essential (primary) hypertension; I25.2 Old myocardial infarction; J44.9 Chronic obstructive pulmonary disease, unspecified; F17.200 Nicotine dependence, unspecified, uncomplicated; Z87.19 Personal history of other diseases of the digestive system; Z88.1 Allergy status to other antibiotic agents; Z91.048 Other nonmedicinal substance allergy status; Z88.8 Allergy status to other drugs, medicaments and biological substances; Z91.040 Latex allergy status; Z88.0 Allergy status to penicillin; Z91.041 Radiographic dye allergy status
CPT/HCPCS: 93005; 99285; 36415; 82553; 83690; 85025; 80053; 81001; 84484; 71046; 93010; S0119

== ENCOUNTER 2018-07-31 12:01 | Emergency (ER) | payer BC ==
--- NOTE | 2018-07-31 12:23 | ER Document Report ---
ED Medical Screen (RME) - General Chief Complaint: Abdominal Pain Stated Complaint: ABDOMINAL PAIN,BLACK STOOLS Time Seen by Provider: 07/31/18 12:17 Mode of Arrival: Ambulatory Information source: Patient Notes: Patient presents to the emergency department with complaints of severe abdominal pain and black stools. Patient reports black stools for about a week. But she recently started taking iron. Patient also reports stomach with severe contraction-like feeling that radiates to her back just started approximately 2 hours ago. No vomiting no fever no diarrhea. When patient stands up she says her stomach bloats out and is very tight. Patient's abdomen is round patient complains of tenderness in left upper quad. Dictation of this chart was performed using voice recognition software; therefore, there may be some unintended grammatical errors. I have greeted and performed a rapid initial assessment of this patient. A comprehensive ED assessment and evaluation of the patient, analysis of test results and completion of the medical decision making process will be conducted by additional ED providers. TRAVEL OUTSIDE OF THE [place] IN LAST 30 DAYS: No - Related Data Allergies/Adverse Reactions: Cephalosporins Allergy (Severe, Verified 07/27/18 18:28) Throat itching and swelling ciprofloxacin [From Cipro] Allergy (Severe, Verified 07/27/18 18:28) Blistering in mouth and throat ethyl alcohol Allergy (Severe, Verified 07/27/18 18:28) Shortness of Breath, cough, difficulty breathing fluticasone [From Flonase] Allergy (Severe, Verified 07/27/18 18:28) Migraine, nose bleed latex Allergy (Severe, Verified 07/27/18 18:28) RASH Penicillins Allergy (Severe, Verified 07/27/18 18:28) Throat swelling, difficulty breathing cephalexin [From Keflex] Allergy (Verified 07/27/18 18:28) Throat swelling, difficulty breathing dexlansoprazole [From Dexilant] Allergy (Verified 07/27/18 18:28) erythromycin base [From Erythrocin] Allergy (Verified 07/27/18 18:28) Hives fluoxetine [From Prozac] Allergy (Verified 07/27/18 18:28) prednisone Allergy (Verified 07/27/18 18:28) Tachycardia sertraline [From Zoloft] Allergy (Verified 07/27/18 18:28) aspirin Adverse Reaction (Verified 07/27/18 18:28) N&V Sulfa (Sulfonamide Antibiotics) Adverse Reaction (Verified 07/27/18 18:28) See Comments IV dye Allergy (Uncoded 07/27/18 18:28) arrhythmia Past Medical History - Social History Family history: None - Past Medical History Cardiac Medical History: Reports: Hx Heart Attack - 2009, Hx Hypertension - HX OF Denies: Hx Coronary Artery Disease Pulmonary Medical History: Reports: Hx Asthma, Hx COPD - INHALERS Denies: Hx Bronchitis, Hx Pneumonia Neurological Medical History: Reports: Hx Migraine, Hx Seizures - NO MEDS - LAST 2013 - NOT CURRENT. Denies: Hx Cerebrovascular Accident Endocrine Medical History: Reports: Hx Diabetes Mellitus Type 2 Renal/ Medical History: Denies: Hx Peritoneal Dialysis Musculoskeltal Medical History: Denies Hx Arthritis Past Surgical History: Reports: Hx Abdominal Surgery, Hx Cholecystectomy, Hx Gynecologic Surgery, Hx Hysterectomy, Hx Nose Surgery, Hx Thyroid Surgery, Hx Tubal Ligation - Immunizations Immunizations up to date: Yes Hx Diphtheria, Pertussis, Tetanus Vaccination: No History of Influenza Vaccine for 11/2016 - 04/2017 Season: No Physical Exam - Vital signs Vitals: Temp Pulse Resp BP Pulse Ox 97.5 F 88 16 132/90 H 98 07/31/18 12:10 07/31/18 12:10 07/31/18 12:10 07/31/18 12:10 07/31/18 12:10 Course - Vital Signs Vital signs: Temp Pulse Resp BP Pulse Ox 97.5 F 88 16 132/90 H 98 07/31/18 12:10 07/31/18 12:10 07/31/18 12:10 07/31/18 12:10 07/31/18 12:10
[2018-07-31 12:46] LABS: ABSOLUTE BASOPHILS # (AUTO) 0.1 10^3/uL (0.0-0.2); ABSOLUTE EOSINOPHILS # (AUTO) 0.3 10^3/uL (0.0-0.6); ABSOLUTE LYMPHOCYTES (AUTO) 1.9 10^3/uL (0.5-4.7); ABSOLUTE MONOCYTES (AUTO) 0.7 10^3/uL (0.1-1.4); ABSOLUTE NEUT (AUTO) 8.8 10^3/uL (1.7-8.2); BASOPHILS % (AUTO) 0.4 % (0-2); EOSINOPHILS % (AUTO) 2.2 % (0-6); HEMATOCRIT 41.8 % (36.0-47.0); MEAN CORPUSCULAR HEMOGLOBIN 28.7 pg (27.0-33.4); MEAN CORPUSCULAR HGB CONC 33.4 g/dL (32.0-36.0); MEAN CORPUSCULAR VOLUME 86 fl (80-97); MONOCYTES % (AUTO) 6.2 % (3-13); PLATELET COUNT 287 10^3/uL (150-450); RED BLOOD COUNT 4.86 10^6/uL (3.72-5.28); SEGMENTED NEUTROPHILS % (AUTO) 75.2 % (42-78); TOTAL CELLS COUNTED % (AUTO) 100 %; WHITE BLOOD COUNT 11.7 10^3/uL (4.0-10.5)
[2018-07-31 13:11] LABS: ALANINE AMINOTRANSFERASE 31 U/L (9-52); ALBUMIN 4.9 g/dL (3.5-5.0); ALKALINE PHOSPHATASE 76 U/L (38-126); ANION GAP 11 (5-19); ASPARTATE AMINO TRANSFERASE 27 U/L (14-36); BILIRUBIN,DIRECT 0.2 mg/dL (0.0-0.4); BILIRUBIN,TOTAL 0.4 mg/dL (0.2-1.3); BLOOD UREA NITROGEN 12 mg/dL (7-20); CALCIUM 10.2 mg/dL (8.4-10.2); CARBON DIOXIDE 24 mmol/L (22-30); CHLORIDE 103 mmol/L (98-107); GLUCOSE 91 mg/dL (75-110); POTASSIUM 4.3 mmol/L (3.6-5.0); SODIUM 137.7 mmol/L (137-145); TOTAL PROTEIN 8.1 g/dL (6.3-8.2)
[2018-07-31 13:29] LABS: APPEARANCE,URINE CLEAR; BILIRUBIN,URINE NEGATIVE (NEGATIVE); COLOR,URINE STRAW; GLUCOSE, URINE NEGATIVE (NEGATIVE); KETONES,URINE 20 mg/dL (NEGATIVE); LEUKOCYTE ESTERASE,URINE NEGATIVE (NEGATIVE); NITRITE,URINE NEGATIVE (NEGATIVE); PROTEIN,URINE NEGATIVE (NEGATIVE); URINE SPECIFIC GRAVITY 1.002; UROBILINOGEN,URINE NEGATIVE mg/dL (<2.0)
--- NOTE | 2018-07-31 13:48 | ER Document Report ---
ED General - General Chief Complaint: Abdominal Pain Stated Complaint: ABDOMINAL PAIN,BLACK STOOLS Time Seen by Provider: 07/31/18 12:17 Mode of Arrival: Ambulatory TRAVEL OUTSIDE OF THE [place] IN LAST 30 DAYS: No - HPI Notes: Patient is a 43-year-old female that presents to the emergency department for chief complaint of abdominal pain and bloating. Patient reports about 10 AM this morning she started to have diffuse abdominal pain and cramping. She states it started on her right side and radiates over to the left. She describes it as an intermittent sharp cramping sensation. She denies any aggravating or relieving factors. Patient was started on iron supplements and reports black bowel movements for the last week. She denies any blood or melanotic stools. She denies any palpitations, lightheadedness and generalized weakness. She states that when she stands up her abdomen appears more distended and when she lays flat it appears more normal. She denies any diarrhea. She states she has had slight decrease in bowel movements but is going almost every day. She is on Colace 100 mg daily for constipation and has been compliant with that medication. She denies associated fever, chills, nausea and vomiting. Past Medical History: Hypothyroidism, hypertension Past Surgical History: Thyroidectomy, tubal ligation, hysterectomy, cholecystectomy, Social History: Denies drugs alcohol and tobacco Family History: Reviewed and noncontributory for presenting illness Allergies: Reviewed, see documented allergy list. REVIEW OF SYSTEMS: CONSTITUTIONAL : No fever No chills No diaphoresis No recent illness EENT: No vision changes No congestion No sore throat CARDIOVASCULAR: No chest pain No palpitations RESPIRATORY: No shortness of breath No cough No difficulty breathing GASTROINTESTINAL: abdominal pain No nausea No vomiting No diarrhea Black stools GENITOURINARY: No dysuria No hematuria No difficulty urinating MUSCULOSKELETAL: No back pain No leg pain No arm pain SKIN: No rashes No lesions LYMPHATIC: No swollen, enlarged glands. NEUROLOGICAL: No lightheadedness No headache No weakness No paresthesias PSYCHIATRIC: No anxiety No depression PHYSICAL EXAMINATION: Vital signs reviewed, nursing noted reviewed. GENERAL: Well-appearing, well-nourished and in no acute distress. HEAD: Atraumatic, normocephalic. EYES: Eyes appear normal, extraocular movements intact, sclera anicteric, conjunctiva are normal. ENT: nares patent, oropharynx clear without exudates. Moist mucous membranes. NECK: Normal range of motion, supple without lymphadenopathy LUNGS: Breath sounds clear to auscultation bilaterally and equal. No wheezes rales or rhonchi. HEART: Regular rate and rhythm without murmurs ABDOMEN: Soft, mild diffuse tenderness. No rebound, guarding, or rigidity. No masses appreciated. EXTREMITIES: Nontender, good range of motion, no pitting or edema. NEUROLOGICAL: No focal neurological deficits. Moves all extremities spontaneously Motor and sensory grossly intact on exam. PSYCH: Normal mood, normal affect. SKIN: Warm, Dry, normal turgor, no rashes or lesions noted on exposed skin - Related Data Allergies/Adverse Reactions: Cephalosporins Allergy (Severe, Verified 07/27/18 18:28) Throat itching and swelling ciprofloxacin [From Cipro] Allergy (Severe, Verified 07/27/18 18:28) Blistering in mouth and throat ethyl alcohol Allergy (Severe, Verified 07/27/18 18:28) Shortness of Breath, cough, difficulty breathing fluticasone [From Flonase] Allergy (Severe, Verified 07/27/18 18:28) Migraine, nose bleed latex Allergy (Severe, Verified 07/27/18 18:28) RASH Penicillins Allergy (Severe, Verified 07/27/18 18:28) Throat swelling, difficulty breathing cephalexin [From Keflex] Allergy (Verified 07/27/18 18:28) Throat swelling, difficulty breathing dexlansoprazole [From Dexilant] Allergy (Verified 07/27/18 18:28) erythromycin base [From Erythrocin] Allergy (Verified 07/27/18 18:28) Hives fluoxetine [From Prozac] Allergy (Verified 07/27/18 18:28) prednisone Allergy (Verified 07/27/18 18:28) Tachycardia sertraline [From Zoloft] Allergy (Verified 07/27/18 18:28) aspirin Adverse Reaction (Verified 07/27/18 18:28) N&V Sulfa (Sulfonamide Antibiotics) Adverse Reaction (Verified 07/27/18 18:28) See Comments IV dye Allergy (Uncoded 07/27/18 18:28) arrhythmia Past Medical History - General Information source: Patient - Social History Smoking Status: Current Every Day Smoker Chew tobacco use (# tins/day): No Frequency of alcohol use: None Drug Abuse: None Family History: Reviewed & Not Pertinent Patient has suicidal ideation: No Patient has homicidal ideation: No - Past Medical History Cardiac Medical History: Reports: Hx Heart Attack - 2010, Hx Hypertension - HX OF Denies: Hx Coronary Artery Disease Pulmonary Medical History: Reports: Hx Asthma, Hx COPD - INHALERS Denies: Hx Bronchitis, Hx Pneumonia Neurological Medical History: Reports: Hx Migraine, Hx Seizures - NO MEDS - LAST 2013 - NOT CURRENT. Denies: Hx Cerebrovascular Accident Endocrine Medical History: Reports: Hx Diabetes Mellitus Type 2 Renal/ Medical History: Denies: Hx Peritoneal Dialysis Musculoskeletal Medical History: Denies Hx Arthritis Past Surgical History: Reports: Hx Abdominal Surgery, Hx Cholecystectomy, Hx Gynecologic Surgery, Hx Hysterectomy, Hx Nose Surgery, Hx Thyroid Surgery, Hx Tubal Ligation - Immunizations Immunizations up to date: Yes Hx Diphtheria, Pertussis, Tetanus Vaccination: No Physical Exam - Vital signs Vitals: Temp Pulse Resp BP Pulse Ox 97.5 F 88 16 132/90 H 98 07/31/18 12:10 07/31/18 12:10 07/31/18 12:10 07/31/18 12:10 07/31/18 12:10 Course - Re-evaluation Re-evalutation: 07/31/18 13:56 Vitals reviewed. Nursing notes reviewed. Patient has a normal hemoglobin and does not appear acutely anemic. She is not tachycardic and has moist mucous membranes. Patient's abdominal exam is mildly tender to very light palpation and deep palpation in all quadrants. Patient did stand up to demonstrate how her abdomen appears more bloated when she is standing. She appeared to be pushing her abdominal wall out. When she laid down to relax her abdominal muscles. I do not appreciate any objective abdominal distention. She has had multiple CT scans on her abdomen previously and given her normal blood work today I do not feel there is a benefit to further radiation exposure. Patient has been eating and drinking normally. Her black stools are likely secondary to her iron and I do not suspect acute upper GI bleed given her stable vital signs and no anemia. Patient has a appointment with her primary care doctor in 2 days which she will keep. She will return to the emergency room for new or worsening symptoms. She will be given Bentyl for her abdominal cramping. She is stable for discharge. Laboratory 07/31/18 07/31/18 07/31/18 12:30 12:30 12:35 WBC 11.7 H RBC 4.86 Hgb 14.0 Hct 41.8 MCV 86 MCH 28.7 MCHC 33.4 RDW 16.0 H Plt Count 287 Seg Neutrophils % 75.2 Lymphocytes % 16.0 Monocytes % 6.2 Eosinophils % 2.2 Basophils % 0.4 Absolute Neutrophils 8.8 H Absolute Lymphocytes 1.9 Absolute Monocytes 0.7 Absolute Eosinophils 0.3 Absolute Basophils 0.1 Sodium 137.7 Potassium 4.3 Chloride 103 Carbon Dioxide 24 Anion Gap 11 BUN 12 Creatinine 0.68 Est GFR ( Amer) > 60 Est GFR (Non-Af Amer) > 60 Glucose 91 Calcium 10.2 Total Bilirubin 0.4 Direct Bilirubin 0.2 Neonat Total Bilirubin Not Reportable Neonat Direct Bilirubin Not Reportable Neonat Indirect Bili Not Reportable AST 27 ALT 31 Alkaline Phosphatase 76 Total Protein 8.1 Albumin 4.9 Urine Color STRAW Urine Appearance CLEAR Urine pH 6.0 Ur Specific [place] 1.002 Urine Protein NEGATIVE Urine Glucose (UA) NEGATIVE Urine Ketones 20 H Urine Blood SMALL H Urine Nitrite NEGATIVE Urine Bilirubin NEGATIVE Urine Urobilinogen NEGATIVE Ur Leukocyte Esterase NEGATIVE Urine WBC (Auto) 1 Urine RBC (Auto) 0 Squamous Epi Cells Auto <1 Urine Mucus (Auto) RARE Urine Ascorbic Acid NEGATIVE Urine HCG, Qual NEGATIVE - Vital Signs Vital signs: Temp Pulse Resp BP Pulse Ox 97.5 F 88 16 132/90 H 98 07/31/18 12:10 07/31/18 12:10 07/31/18 12:10 07/31/18 12:10 07/31/18 12:10 - Laboratory Result Diagrams: 07/31/18 12:30 07/31/18 12:30 Laboratory results interpreted by me: 07/31/18 07/31/18 12:30 12:35 WBC 11.7 H RDW 16.0 H Absolute Neutrophils 8.8 H Urine Ketones 20 H Urine Blood SMALL H Discharge - Discharge Clinical Impression: Abdominal pain Qualifiers: Abdominal location: generalized Qualified Code(s): R10.84 - Generalized abdominal pain Condition: Stable Disposition: HOME, SELF-CARE Instructions: Abdominal Pain ([facility]) Additional Instructions: Please return to the emergency department if you have any worsening, or concern of your symptoms. Please return to the emergency department if you develop chest pain, difficulty breathing, severe abdominal pain, or ongoing vomiting. Please follow-up with your primary care physician in 2-3 days and any other recommended physicians. If prescribed, take all medications as directed. If you have any questions or concerns do not hesitate to return the emergency department for evaluation. Prescriptions: Dicyclomine HCl [Bentyl 10 mg Capsule] 1 cap PO TID PRN #20 cap PRN Reason: Abdominal Cramping
[2018-07-31] MEDS ORDERED: DICYCLOMINE HCL 10 MG CAPSULE PO ONE (13:50)
[2018-07-31 14:40] VITALS: BP 116/83
== END 2018-07-31 14:40 | disposition home or self-care (01) ==
LOC: ER 12:01
DX: R10.84 Generalized abdominal pain (principal); E89.0 Postprocedural hypothyroidism; I10 Essential (primary) hypertension; Z98.51 Tubal ligation status; Z90.710 Acquired absence of both cervix and uterus; Z90.49 Acquired absence of other specified parts of digestive tract; Z88.0 Allergy status to penicillin; Z88.2 Allergy status to sulfonamides; Z88.8 Allergy status to other drugs, medicaments and biological substances; Z88.6 Allergy status to analgesic agent; Z88.1 Allergy status to other antibiotic agents; Z91.040 Latex allergy status
CPT/HCPCS: 99284; 36415; 85025; 81025; 80053; 81001; J3490

== ENCOUNTER 2018-08-29 19:16 | Emergency (ER) | payer BC ==
[2018-08-29 19:59] VITALS: BP 136/82
== END 2018-08-29 20:05 | disposition left against medical advice (07) ==
LOC: ER 19:16
DX: Z53.21 Procedure and treatment not carried out due to patient leaving prior to being seen by health care provider (principal)

== ENCOUNTER 2018-09-22 18:47 | Emergency (ER) | payer BC ==
--- NOTE | 2018-09-22 19:42 | ER Document Report ---
ED Medical Screen (RME) - General Chief Complaint: Chest Pressure Stated Complaint: FAST HEART RATE Time Seen by Provider: 09/22/18 19:39 Mode of Arrival: Ambulatory Information source: Patient Notes: 43-year-old female presented to ED for complaint of chest pain and pressure with a pulse fluctuating between 40 and 178. She states it feels like it might have settled down now to the 100s. She states she also gets very nauseated and dizzy. She states normally she has a headache but did not have a headache today. She states is been going on for about an hour or so. 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 She states she is been helpful while this time. She is alert oriented respirations regular and unlabored speaking in full sentences walking with a even steady gait. I have greeted and performed a rapid initial assessment of this patient. A comprehensive ED assessment and evaluation of the patient, analysis of test results and completion of medical decision making process will be conducted by an additional ED providers. Dictation of this chart was performed using voice recognition software; therefore, there may be some unintended grammatical errors. TRAVEL OUTSIDE OF THE [place] IN LAST 30 DAYS: No - Related Data Allergies/Adverse Reactions: Cephalosporins Allergy (Severe, Verified 09/22/18 18:48) Throat itching and swelling ciprofloxacin [From Cipro] Allergy (Severe, Verified 09/22/18 18:48) Blistering in mouth and throat ethyl alcohol Allergy (Severe, Verified 09/22/18 18:48) Shortness of Breath, cough, difficulty breathing fluticasone [From Flonase] Allergy (Severe, Verified 09/22/18 18:48) Migraine, nose bleed latex Allergy (Severe, Verified 09/22/18 18:48) RASH Penicillins Allergy (Severe, Verified 09/22/18 18:48) Throat swelling, difficulty breathing cephalexin [From Keflex] Allergy (Verified 09/22/18 18:48) Throat swelling, difficulty breathing dexlansoprazole [From Dexilant] Allergy (Verified 09/22/18 18:48) erythromycin base [From Erythrocin] Allergy (Verified 09/22/18 18:48) Hives fluoxetine [From Prozac] Allergy (Verified 09/22/18 18:48) prednisone Allergy (Verified 09/22/18 18:48) Tachycardia sertraline [From Zoloft] Allergy (Verified 09/22/18 18:48) aspirin Adverse Reaction (Verified 09/22/18 18:48) N&V Sulfa (Sulfonamide Antibiotics) Adverse Reaction (Verified 09/22/18 18:48) See Comments IV dye Allergy (Uncoded 09/22/18 18:48) arrhythmia Past Medical History - Social History Family history: None - Past Medical History Cardiac Medical History: Reports: Hx Heart Attack - 2009, Hx Hypertension - HX OF Denies: Hx Coronary Artery Disease Pulmonary Medical History: Reports: Hx Asthma, Hx COPD - INHALERS Denies: Hx Bronchitis, Hx Pneumonia Neurological Medical History: Reports: Hx Migraine, Hx Seizures - NO MEDS - LAST 2013 - NOT CURRENT. Denies: Hx Cerebrovascular Accident Endocrine Medical History: Reports: Hx Diabetes Mellitus Type 2 Renal/ Medical History: Denies: Hx Peritoneal Dialysis Musculoskeltal Medical History: Denies Hx Arthritis Past Surgical History: Reports: Hx Abdominal Surgery, Hx Cholecystectomy, Hx Gynecologic Surgery, Hx Hysterectomy, Hx Nose Surgery, Hx Thyroid Surgery, Hx Tubal Ligation - Immunizations Immunizations up to date: Yes Hx Diphtheria, Pertussis, Tetanus Vaccination: No History of Influenza Vaccine for 11/2016 - 04/2017 Season: No Physical Exam - Vital signs Vitals: Temp Pulse Resp BP Pulse Ox 98.7 F 95 18 125/90 H 98 09/22/18 19:07 09/22/18 19:07 09/22/18 19:07 09/22/18 19:07 09/22/18 19:07 Course - Vital Signs Vital signs: Temp Pulse Resp BP Pulse Ox 98.7 F 95 18 125/90 H 98 09/22/18 19:07 09/22/18 19:07 09/22/18 19:07 09/22/18 19:07 09/22/18 19:07
[2018-09-22 20:41] LABS: ABSOLUTE EOSINOPHILS # (AUTO) 0.3 10^3/uL (0.0-0.6); ABSOLUTE LYMPHOCYTES (AUTO) 1.8 10^3/uL (0.5-4.7); ABSOLUTE MONOCYTES (AUTO) 0.4 10^3/uL (0.1-1.4); ABSOLUTE NEUT (AUTO) 4.4 10^3/uL (1.7-8.2); BASOPHILS % (AUTO) 0.7 % (0-2); EOSINOPHILS % (AUTO) 4.2 % (0-6); HEMOGLOBIN 14.7 g/dL (12.0-15.5); LYMPHOCYTES % (AUTO) 25.8 % (13-45); MEAN CORPUSCULAR HEMOGLOBIN 29.6 pg (27.0-33.4); MEAN CORPUSCULAR HGB CONC 33.3 g/dL (32.0-36.0); MEAN CORPUSCULAR VOLUME 89 fl (80-97); MONOCYTES % (AUTO) 6.3 % (3-13); PLATELET COUNT 194 10^3/uL (150-450); RED BLOOD COUNT 4.96 10^6/uL (3.72-5.28); RED CELL DISTRIBUTION WIDTH 15.8 % (11.5-14.0); TOTAL CELLS COUNTED % (AUTO) 100 %
[2018-09-22 20:55] LABS: ALBUMIN 4.8 g/dL (3.5-5.0); ALKALINE PHOSPHATASE 88 U/L (38-126); ANION GAP 11 (5-19); ASPARTATE AMINO TRANSFERASE 21 U/L (14-36); BILIRUBIN,DIRECT 0.2 mg/dL (0.0-0.4); BILIRUBIN,TOTAL 0.3 mg/dL (0.2-1.3); BLOOD UREA NITROGEN 10 mg/dL (7-20); CALCIUM 10.5 mg/dL (8.4-10.2); CARBON DIOXIDE 25 mmol/L (22-30); CHLORIDE 102 mmol/L (98-107); CREATINE KINASE 54 U/L (30-135); GLUCOSE 87 mg/dL (75-110); POTASSIUM 4.4 mmol/L (3.6-5.0); TOTAL PROTEIN 7.6 g/dL (6.3-8.2)
[2018-09-22 21:08] LABS: CREATINE KINASE MB < 0.22 ng/mL (<4.55); TROPONIN I < 0.012 ng/mL
--- NOTE | 2018-09-22 22:54 | ER Document Report ---
ED General - General Chief Complaint: Chest Pressure Stated Complaint: FAST HEART RATE Time Seen by Provider: 09/22/18 19:39 Primary Care Provider: SUDHAKAR GRIFFITH PA-C [Primary Care Provider] - Follow up as needed Mode of Arrival: Ambulatory Notes: 43-year-old female presents emergency department complaining of fluctuating heart rate, palpitations, nausea, dizziness and lightheadedness and chest pressure as well as exhaustion after the episode. Patient states that she has a history of intermittent chest pressure as well as fluctuating heart rate. States that she is in the midst of a work-up for this with Dr. Rodriguez, states that she had a normal Holter and a normal echocardiogram, has a stress test scheduled for October 10 but was told to come to the emergency department should her palpitations or her chest pressure returned. Patient states that today it came on for a few minutes and then resolved, it has been intermittent but been more frequent in the past few weeks. Patient states that her chest pressure is fairly constant throughout the day due to her history of gastritis but it did worsen with an increased heart rate and then normalized. Patient denies any shortness of breath associated with this. States that it is not worse than it usually is. Patient does note that she has lost 32 pounds in the past 5 weeks by following a high-protein and low-carb diet. Patient states it is not to the keto diet as she eats even less sugar than the keto diet allows. Of significance this patient states that she had a heart attack back in 2009, states that was treated with nitroglycerin and Ativan and she never had to have stents or bypass surgery. TRAVEL OUTSIDE OF THE [place] IN LAST 30 DAYS: No - Related Data Allergies/Adverse Reactions: Cephalosporins Allergy (Severe, Verified 09/22/18 18:48) Throat itching and swelling ciprofloxacin [From Cipro] Allergy (Severe, Verified 09/22/18 18:48) Blistering in mouth and throat ethyl alcohol Allergy (Severe, Verified 09/22/18 18:48) Shortness of Breath, cough, difficulty breathing fluticasone [From Flonase] Allergy (Severe, Verified 09/22/18 18:48) Migraine, nose bleed latex Allergy (Severe, Verified 09/22/18 18:48) RASH Penicillins Allergy (Severe, Verified 09/22/18 18:48) Throat swelling, difficulty breathing cephalexin [From Keflex] Allergy (Verified 09/22/18 18:48) Throat swelling, difficulty breathing dexlansoprazole [From Dexilant] Allergy (Verified 09/22/18 18:48) erythromycin base [From Erythrocin] Allergy (Verified 09/22/18 18:48) Hives fluoxetine [From Prozac] Allergy (Verified 09/22/18 18:48) prednisone Allergy (Verified 09/22/18 18:48) Tachycardia sertraline [From Zoloft] Allergy (Verified 09/22/18 18:48) aspirin Adverse Reaction (Verified 09/22/18 18:48) N&V Sulfa (Sulfonamide Antibiotics) Adverse Reaction (Verified 09/22/18 18:48) See Comments IV dye Allergy (Uncoded 09/22/18 18:48) arrhythmia Past Medical History - General Information source: Patient - Social History Smoking Status: Current Every Day Smoker Chew tobacco use (# tins/day): No Frequency of alcohol use: None Drug Abuse: None Family History: Reviewed & Not Pertinent - Past Medical History Cardiac Medical History: Reports: Hx Heart Attack - 2009, Hx Hypertension - HX OF Denies: Hx Coronary Artery Disease Pulmonary Medical History: Reports: Hx Asthma, Hx COPD - INHALERS Denies: Hx Bronchitis, Hx Pneumonia Neurological Medical History: Reports: Hx Migraine, Hx Seizures - NO MEDS - LAST 2013 - NOT CURRENT. Denies: Hx Cerebrovascular Accident Endocrine Medical History: Reports: Hx Diabetes Mellitus Type 2 Renal/ Medical History: Denies: Hx Peritoneal Dialysis Musculoskeletal Medical History: Denies Hx Arthritis Past Surgical History: Reports: Hx Abdominal Surgery, Hx Cholecystectomy, Hx Gynecologic Surgery, Hx Hysterectomy, Hx Nose Surgery, Hx Thyroid Surgery, Hx Tubal Ligation - Immunizations Immunizations up to date: Yes Hx Diphtheria, Pertussis, Tetanus Vaccination: No Review of Systems - Review of Systems Constitutional: See HPI, Weakness EENT: No symptoms reported Cardiovascular: See HPI Respiratory: No symptoms reported Gastrointestinal: No symptoms reported -: Yes All other systems reviewed and negative Physical Exam - Vital signs Vitals: Temp Pulse Resp BP Pulse Ox 98.7 F 95 18 125/90 H 98 09/22/18 19:07 09/22/18 19:07 09/22/18 19:07 09/22/18 19:07 09/22/18 19:07 Interpretation: Normal - Notes Notes: GENERAL: Alert, interacts well. No acute distress. Slightly overweight HEAD: Normocephalic, atraumatic EYES: Pupils equal, round and reactive to light, extraocular movements intact. ENT: Oral mucosa moist, tongue midline. NECK: Full range of motion, supple, trachea midline. LUNGS: Clear to auscultation bilaterally, no wheezes, rales or rhonchi, no respiratory distress. HEART: Regular rate and rhythm, no murmurs, gallops, rubs. ABDOMEN: Soft, nontender, nondistended, bowel sounds present in all 4 quadrants. EXTREMITIES: Moves all 4 extremities spontaneously, no edema, radial and dorsalis pedis pulses 2/4 bilaterally. No cyanosis. Both ankles and braces. NEUROLOGICAL: Alert and oriented x3, normal speech. PSYCH: Normal mood, normal affect. SKIN: Warm, Dry, normal turgor, no rashes or lesions noted. Course - Re-evaluation Re-evalutation: 09/22/18 22:53 CBC unremarkable, CMP unremarkable with the exception of a slightly elevated calcium at 10.5. test is negative, initial set of cardiac enzymes are negative. EKG is nonischemic and does not show any ectopy. During my examination the patient is in a normal rhythm. Discussed with patient that I would like to set get a second set of cardiac enzymes 3 hours after the first. Patient states that if her troponin starts up negative but never rises. I did discuss [employer] guidelines for looking for a non-STEMI and further investigating unstable angina. Patient states that this is the same pain she always has with her gastritis and when her heart rate increases and then decreases. Patient states that if her troponin is initially normal it never increases. Patient declines to be observed for another 2 hours while we draw her repeat troponin and wait for it to results. Patient states she will return if her heart rate becomes abnormal again, she develops chest pain pressure or has any new or concerning symptoms. Patient will be discharged to home. Patient is aware that she is risking that we are missing a possible non-STEMI. Patient does have follow-up with cardiology for continuing work-up of this intermittent chest pain that has been going on for quite some time. - Vital Signs Vital signs: Temp Pulse Resp BP Pulse Ox 98.7 F 95 18 125/90 H 98 09/22/18 19:07 09/22/18 19:07 09/22/18 19:07 09/22/18 19:07 09/22/18 19:07 - Laboratory Result Diagrams: 09/22/18 20:17 09/22/18 20:17 Laboratory results interpreted by me: 09/22/18 09/22/18 20:17 20:17 RDW 15.8 H Calcium 10.5 H - EKG Interpretation by Me Additional EKG results interpreted by me: 09/22/18 22:54 EKG shows sinus rhythm at a rate of 95, normal axis, normal intervals, no ST segment elevations or depressions, no T wave inversions, there is T wave flattening in aVL, this is new T wave flattening since 07/27/2018, otherwise EKG is unchanged from prior EKG per my interpretation. Discharge - Discharge Clinical Impression: Palpitations, Chest pressure Condition: Stable Disposition: HOME, SELF-CARE Additional Instructions: You have declined to have a second set of cardiac enzymes drawn. If your chest pressure returns, if your fluctuating heart rate returns or if you develop any new or concerning symptoms or you simply change your mind please return to the emergency department at any point to complete your work-up. Please continue to follow-up with Dr. Rodriguez as an outpatient. Please also discuss your high-protein low-carb diet with your primary care providers. They may wish to recheck your cholesterol after you have been on this diet for 3 months. Referrals: SUDHAKAR GRIFFITH PA-C [Primary Care Provider] - Follow up as needed
[2018-09-22 23:28] VITALS: BP 130/93
--- NOTE | 2018-09-23 08:17 | EKG REPORT ---
SEVERITY:- BORDERLINE ECG - SINUS RHYTHM BORDERLINE INFERIOR Q WAVES : Confirmed by: Sergio Mueller MD 23-Sep-2018 08:17:29
== END 2018-09-22 23:28 | disposition home or self-care (01) ==
LOC: ER 18:47
DX: R07.9 Chest pain, unspecified (principal); R00.2 Palpitations; R11.0 Nausea; R42 Dizziness and giddiness; I25.2 Old myocardial infarction; F17.200 Nicotine dependence, unspecified, uncomplicated; I10 Essential (primary) hypertension; J44.9 Chronic obstructive pulmonary disease, unspecified; E11.9 Type 2 diabetes mellitus without complications
CPT/HCPCS: 36415; 80053; 82550; 82553; 84484; 84702; 85025; 93005; 93010; 99284

== ENCOUNTER 2018-09-29 15:16 | Emergency (ER) | payer BC ==
--- NOTE | 2018-09-29 16:43 | ER Document Report ---
ED Medical Screen (RME) - General Chief Complaint: Palpitations Stated Complaint: PALPITATIONS Time Seen by Provider: 09/29/18 16:34 Primary Care Provider: SUDHAKAR GRIFFITH PA-C [Primary Care Provider] - Follow up as needed Mode of Arrival: Ambulatory Information source: Patient Notes: Patient is a 43-year-old female with past medical history of thyroid removal presenting with complaints of palpitations and choking sensation in her throat. Patient reports she thinks her parathyroid glands are enlarged again. She reports recently having labs drawn and her PTH levels being significantly elevated. She reports she called her endocrinology team at [facility] and they told her to come to the emergency department. She is currently speaking in full complete sentences with no airway compromise noted. Exam: Heart sounds S1-S2 present with no ectopy noted. I have greeted and performed a rapid initial assessment of this patient. A comprehensive ED assessment and evaluation of the patient, analysis of test results and completion of the medical decision making process will be conducted by additional ED providers. I have specifically instructed the patient or family members with the patient to immediately return to any nursing staff should anything change in the patient's condition or with their chief complaint. This medical record was dictated with voice recognizing software. There may be grammatical, syntax errors that are unintended. TRAVEL OUTSIDE OF THE [place] IN LAST 30 DAYS: No - Related Data Allergies/Adverse Reactions: Cephalosporins Allergy (Severe, Verified 09/29/18 16:26) Throat itching and swelling ciprofloxacin [From Cipro] Allergy (Severe, Verified 09/29/18 16:26) Blistering in mouth and throat ethyl alcohol Allergy (Severe, Verified 09/29/18 16:26) Shortness of Breath, cough, difficulty breathing fluticasone [From Flonase] Allergy (Severe, Verified 09/29/18 16:26) Migraine, nose bleed latex Allergy (Severe, Verified 09/29/18 16:26) RASH Penicillins Allergy (Severe, Verified 09/29/18 16:26) Throat swelling, difficulty breathing cephalexin [From Keflex] Allergy (Verified 09/29/18 16:26) Throat swelling, difficulty breathing dexlansoprazole [From Dexilant] Allergy (Verified 09/29/18 16:26) erythromycin base [From Erythrocin] Allergy (Verified 09/29/18 16:26) Hives fluoxetine [From Prozac] Allergy (Verified 08/15/19 16:26) prednisone Allergy (Verified 09/29/18 16:26) Tachycardia sertraline [From Zoloft] Allergy (Verified 09/29/18 16:26) aspirin Adverse Reaction (Verified 09/29/18 16:26) N&V Sulfa (Sulfonamide Antibiotics) Adverse Reaction (Verified 09/29/18 16:26) See Comments IV dye Allergy (Uncoded 09/29/18 16:26) arrhythmia Past Medical History - Social History Family history: None - Past Medical History Cardiac Medical History: Reports: Hx Heart Attack - 2009, Hx Hypertension - HX OF Denies: Hx Coronary Artery Disease Pulmonary Medical History: Reports: Hx Asthma, Hx COPD - INHALERS Denies: Hx Bronchitis, Hx Pneumonia Neurological Medical History: Reports: Hx Migraine, Hx Seizures - NO MEDS - LAST 2013 - NOT CURRENT. Denies: Hx Cerebrovascular Accident Endocrine Medical History: Reports: Hx Diabetes Mellitus Type 2 Renal/ Medical History: Denies: Hx Peritoneal Dialysis Musculoskeltal Medical History: Denies Hx Arthritis Past Surgical History: Reports: Hx Abdominal Surgery, Hx Cholecystectomy, Hx Gynecologic Surgery, Hx Hysterectomy, Hx Nose Surgery, Hx Thyroid Surgery, Hx Tubal Ligation - Immunizations Immunizations up to date: Yes Hx Diphtheria, Pertussis, Tetanus Vaccination: No History of Influenza Vaccine for 11/2016 - 04/2017 Season: No Physical Exam - Vital signs Vitals: Temp Pulse Resp BP Pulse Ox 98.4 F 113 H 18 135/92 H 113 H 09/29/18 15:23 09/29/18 15:23 09/29/18 15:23 09/29/18 15:23 09/29/18 15:23 Course - Vital Signs Vital signs: Temp Pulse Resp BP Pulse Ox 98.4 F 113 H 18 135/92 H 113 H 09/29/18 15:23 09/29/18 15:23 09/29/18 15:23 09/29/18 15:23 09/29/18 15:23 Doctor's Discharge - Discharge Referrals: SUDHAKAR GRIFFITH PA-C [Primary Care Provider] - Follow up as needed
[2018-09-29 17:25] LABS: ABSOLUTE BASOPHILS # (AUTO) 0.1 10^3/uL (0.0-0.2); ABSOLUTE EOSINOPHILS # (AUTO) 0.2 10^3/uL (0.0-0.6); ABSOLUTE LYMPHOCYTES (AUTO) 1.8 10^3/uL (0.5-4.7); ABSOLUTE MONOCYTES (AUTO) 0.5 10^3/uL (0.1-1.4); ABSOLUTE NEUT (AUTO) 4.4 10^3/uL (1.7-8.2); BASOPHILS % (AUTO) 0.9 % (0-2); EOSINOPHILS % (AUTO) 3.4 % (0-6); HEMATOCRIT 45.8 % (36.0-47.0); HEMOGLOBIN 15.5 g/dL (12.0-15.5); LYMPHOCYTES % (AUTO) 25.8 % (13-45); MEAN CORPUSCULAR HEMOGLOBIN 29.9 pg (27.0-33.4); MEAN CORPUSCULAR HGB CONC 33.9 g/dL (32.0-36.0); MEAN CORPUSCULAR VOLUME 89 fl (80-97); MONOCYTES % (AUTO) 6.6 % (3-13); PLATELET COUNT 213 10^3/uL (150-450); RED BLOOD COUNT 5.18 10^6/uL (3.72-5.28); RED CELL DISTRIBUTION WIDTH 15.4 % (11.5-14.0); SEGMENTED NEUTROPHILS % (AUTO) 63.3 % (42-78); TOTAL CELLS COUNTED % (AUTO) 100 %
[2018-09-29 17:46] LABS: ALBUMIN 4.9 g/dL (3.5-5.0); ALKALINE PHOSPHATASE 73 U/L (38-126); ANION GAP 12 (5-19); ASPARTATE AMINO TRANSFERASE 26 U/L (14-36); BILIRUBIN,DIRECT 0.2 mg/dL (0.0-0.4); BILIRUBIN,TOTAL 0.3 mg/dL (0.2-1.3); BLOOD UREA NITROGEN 10 mg/dL (7-20); CALCIUM 9.9 mg/dL (8.4-10.2); CARBON DIOXIDE 27 mmol/L (22-30); CHLORIDE 102 mmol/L (98-107); GLUCOSE 88 mg/dL (75-110); POTASSIUM 3.7 mmol/L (3.6-5.0); TOTAL PROTEIN 7.8 g/dL (6.3-8.2)
[2018-09-29 18:02] LABS: FREE T3 3.54 pg/mL (2.77-5.27); FREE T4 (FREE THYROXINE) 1.76 ng/dL (0.78-2.19)
[2018-09-29 18:16] LABS: THYROID STIMULATING HORMONE 0.13 uIU/mL (0.47-4.68)
--- NOTE | 2018-09-29 20:48 | ER Document Report ---
ED General - General Chief Complaint: Palpitations Stated Complaint: PALPITATIONS Time Seen by Provider: 09/29/18 16:34 Primary Care Provider: SUDHAKAR GRIFFITH PA-C [Primary Care Provider] - Follow up as needed Mode of Arrival: Ambulatory Notes: 43-year-old female with past medical history of thyroidectomy, asthma presents with complaints of palpitations and choking sensation in her throat. Patient reports she thinks her parathyroid glands are enlarged again. She reports recently having labs drawn and her PTH levels being significantly elevated. She reports she called her endocrinology team at [place] and they told her to come to the emergency department. Patient denies any respiratory compromise, denies any stridor, denies any cervical motor agitation, denies any diaphoresis, does co mplain of palpitations. TRAVEL OUTSIDE OF THE [place] IN LAST 30 DAYS: No - Related Data Allergies/Adverse Reactions: Cephalosporins Allergy (Severe, Verified 09/29/18 16:26) Throat itching and swelling ciprofloxacin [From Cipro] Allergy (Severe, Verified 09/29/18 16:26) Blistering in mouth and throat ethyl alcohol Allergy (Severe, Verified 09/29/18 16:26) Shortness of Breath, cough, difficulty breathing fluticasone [From Flonase] Allergy (Severe, Verified 09/29/18 16:26) Migraine, nose bleed latex Allergy (Severe, Verified 09/29/18 16:26) RASH Penicillins Allergy (Severe, Verified 09/29/18 16:26) Throat swelling, difficulty breathing cephalexin [From Keflex] Allergy (Verified 09/29/18 16:26) Throat swelling, difficulty breathing dexlansoprazole [From Dexilant] Allergy (Verified 09/29/18 16:26) erythromycin base [From Erythrocin] Allergy (Verified 09/29/18 16:26) Hives fluoxetine [From Prozac] Allergy (Verified 09/29/18 16:26) metronidazole [From Flagyl] Allergy (Verified 09/29/18 16:43) Swelling of Throat prednisone Allergy (Verified 09/29/18 16:26) Tachycardia sertraline [From Zoloft] Allergy (Verified 09/29/18 16:26) aspirin Adverse Reaction (Verified 09/29/18 16:26) N&V Sulfa (Sulfonamide Antibiotics) Adverse Reaction (Verified 09/29/18 16:26) See Comments IV dye Allergy (Uncoded 09/29/18 16:26) arrhythmia Past Medical History - General Information source: Patient - Social History Smoking Status: Current Every Day Smoker Chew tobacco use (# tins/day): No Frequency of alcohol use: None Drug Abuse: None Family History: Reviewed & Not Pertinent Patient has suicidal ideation: No Patient has homicidal ideation: No - Past Medical History Cardiac Medical History: Reports: Hx Heart Attack - 2010, Hx Hypertension - HX OF Denies: Hx Coronary Artery Disease Pulmonary Medical History: Reports: Hx Asthma, Hx COPD - INHALERS Denies: Hx Bronchitis, Hx Pneumonia Neurological Medical History: Reports: Hx Migraine, Hx Seizures - NO MEDS - LAST 2013 - NOT CURRENT. Denies: Hx Cerebrovascular Accident Endocrine Medical History: Reports: Hx Diabetes Mellitus Type 2 Renal/ Medical History: Denies: Hx Peritoneal Dialysis Musculoskeletal Medical History: Denies Hx Arthritis Past Surgical History: Reports: Hx Abdominal Surgery, Hx Cholecystectomy, Hx Gynecologic Surgery, Hx Hysterectomy, Hx Nose Surgery, Hx Thyroid Surgery, Hx Tubal Ligation - Immunizations Immunizations up to date: Yes Hx Diphtheria, Pertussis, Tetanus Vaccination: No Review of Systems - Review of Systems Constitutional: See HPI EENT: No symptoms reported Cardiovascular: See HPI Respiratory: See HPI Gastrointestinal: No symptoms reported Genitourinary: No symptoms reported Female Genitourinary: No symptoms reported Musculoskeletal: No symptoms reported Skin: No symptoms reported Hematologic/Lymphatic: No symptoms reported Neurological/Psychological: See HPI Physical Exam - Vital signs Vitals: Temp Pulse Resp BP Pulse Ox 98.4 F 113 H 18 135/92 H 113 H 09/29/18 15:23 09/29/18 15:23 09/29/18 15:23 09/29/18 15:23 09/29/18 15:23 - Notes Notes: PHYSICAL EXAMINATION: Reviewed vital signs and charting by RN GENERAL: Alert, interacts well. No acute distress. HEAD: Normocephalic, atraumatic. EYES: Pupils equal and round. Extraocular movements intact. ENT: Oral mucosa moist, tongue midline. NECK: Full range of motion. Trachea midline. Bilateral soft tissue swelling in the lower aspect of the anterior neck LUNGS: Clear to auscultation bilaterally, no wheezes, rales, or rhonchi. No respiratory distress. HEART: Regular rate and rhythm. No murmur EXTREMITIES: Moves all 4 extremities spontaneously. No edema, No cyanosis. PSYCH: Normal affect, normal mood. SKIN: Warm, dry, normal turgor. No rashes or lesions noted. Course - Re-evaluation Re-evalutation: 09/29/18 20:47 Patient overall well-appearing a bit anxious. Labs show a TSH level of 0.13 with normal T3 free T4 levels. Patient showed me lab results from 2 days ago and her parathyroid level was 21. Plan is to get a soft tissue neck to ensure there is no mass-effect on the trachea 09/29/18 22:34 CT soft tissue neck showed no concerning tumors or any mass-effect on the trachea. Recommendation was for advanced imaging that would be conducted through her reinsurance analyst. I will relay the results to patient and she is stable for discharge. - Vital Signs Vital signs: Temp Pulse Resp BP Pulse Ox 98.4 F 113 H 18 135/92 H 113 H 09/29/18 15:23 09/29/18 15:23 09/29/18 15:23 09/29/18 15:23 09/29/18 15:23 - Laboratory Result Diagrams: 09/29/18 17:03 09/29/18 17:03 Laboratory results interpreted by me: 09/29/18 09/29/18 17:03 17:03 RDW 15.4 H TSH 0.13 L Discharge - Discharge Clinical Impression: Heart palpitations, Neck swelling Condition: Good Disposition: HOME, SELF-CARE Additional Instructions: You were seen in the emergency department this evening for heart palpitations and swelling in your neck. All of your lab work was reassuring and your CT scan did not show any major concerns. Recommendation would be to get some advanced imaging that would occur through your reinsurance analyst. At this time you are stable to go home. If you develop worsening airway problems and are unable to breathe, develop acute shortness of breath, develop significant chest pain, have a rapid heart rate that you cannot slow down doing vagal type maneuvers, or have any other concerning symptoms please immediately return to the emergency department for reevaluation. Referrals: SUDHAKAR GRIFFITH PA-C [Primary Care Provider] - Follow up as needed
--- NOTE | 2018-09-29 22:24 | RADIOLOGY REPORT (SQ) ---
EXAM DESCRIPTION: CT NECK WITH IV CONTRAST COMPLETED DATE/TME: 09/29/2018 20:44 CLINICAL HISTORY: 43 years, Female, hx thyroidectomy, ?parathyroid tumor COMPARISON: None. TECHNIQUE: Contrast enhanced CT of the neck was performed. Coronal and sagittal reformations were created. Images stored on PACS. All CT scanners at this facility use dose modulation, iterative reconstruction, and/or weight based dosing when appropriate to reduce radiation dose to as low as reasonably achievable (ALARA). [facility]: Dose Right [facility]: CareDose [facility]: Dose Right [facility]: Teradose 4D [facility]: [employer] LIMITATIONS: None. FINDINGS: Limited evaluation of the lungs reveals ill-defined centrilobular groundglass nodules about both upper lobes. Thyroid gland is absent. The hypopharynx, oropharynx, and nasopharynx show no suspicious finding. Bilateral parotid and submandibular glands appear normal. Visualized portions of the brain parenchyma reveal no suspicious finding. Globes and orbits show no acute abnormality. Minimal opacity is noted about the ethmoidal air cells. Minimal opacity is evident about the inferior aspect of the left maxillary antrum, indicating a mucous retention cyst or inflammatory polyp. Remaining paranasal sinuses and mastoid air cells are clear. The nasal septum is mildly deviated towards the right. No suspicious deep cervical lymphadenopathy is appreciated. Bone windows show reversal of the normal cervical lordosis, either related to positioning and/or muscle spasm. No additional suspicious osseous anomalies. IMPRESSION: Postoperative changes of thyroidectomy. Otherwise, no suspicious findings identified within the neck. If there is concern for a parathyroid tumor, consider further assessment with nuclear medicine parathyroid scan. TECHNICAL DOCUMENTATION: Quality ID # [id number]: Final reports with documentation of one or more dose reduction techniques (e.g., Automated exposure control, adjustment of the mA and/or kV according to patient size, use of iterative reconstruction technique) copyright 2010 [employer]- All Rights Reserved
[2018-09-29 23:12] VITALS: BP 130/86
--- NOTE | 2018-10-01 10:32 | EKG REPORT ---
SEVERITY:- ABNORMAL ECG - SINUS RHYTHM FIRST DEGREE AV BLOCK BORDERLINE INFERIOR Q WAVES : Confirmed by: Tomasz Mir 01-Oct-2018 10:31:01
== END 2018-09-29 23:12 | disposition home or self-care (01) ==
LOC: ER 15:16
DX: R00.2 Palpitations (principal); R22.1 Localized swelling, mass and lump, neck; R09.89 Other specified symptoms and signs involving the circulatory and respiratory systems; E89.0 Postprocedural hypothyroidism; J45.909 Unspecified asthma, uncomplicated; F17.200 Nicotine dependence, unspecified, uncomplicated; I10 Essential (primary) hypertension; I25.2 Old myocardial infarction; J44.9 Chronic obstructive pulmonary disease, unspecified; E11.9 Type 2 diabetes mellitus without complications; Z88.1 Allergy status to other antibiotic agents; Z88.8 Allergy status to other drugs, medicaments and biological substances; Z91.040 Latex allergy status; Z88.0 Allergy status to penicillin; Z91.018 Allergy to other foods; Z91.041 Radiographic dye allergy status
CPT/HCPCS: 36415; 70491; 80053; 83970; 84439; 84443; 84481; 85025; 93005; 93010; 99285

== ENCOUNTER 2018-10-03 10:55 | Emergency (ER) | payer BC ==
[2018-10-03 11:06] VITALS: BP 144/95
[2018-10-03 12:15] LABS: ALBUMIN 4.4 g/dL (3.5-5.0); ALKALINE PHOSPHATASE 67 U/L (38-126); ANION GAP 9 (5-19); ASPARTATE AMINO TRANSFERASE 22 U/L (14-36); BILIRUBIN,DIRECT 0.2 mg/dL (0.0-0.4); BILIRUBIN,TOTAL 0.3 mg/dL (0.2-1.3); BLOOD UREA NITROGEN 9 mg/dL (7-20); CALCIUM 9.9 mg/dL (8.4-10.2); CARBON DIOXIDE 25 mmol/L (22-30); CHLORIDE 106 mmol/L (98-107); GLUCOSE 94 mg/dL (75-110); POTASSIUM 4.2 mmol/L (3.6-5.0); TOTAL PROTEIN 6.9 g/dL (6.3-8.2)
--- NOTE | 2018-10-03 12:29 | ER Document Report ---
ED General - General Chief Complaint: Palpitations Stated Complaint: PALPITATIONS Time Seen by Provider: 10/03/18 11:49 Primary Care Provider: SUDHAKAR GRIFFITH PA-C [Primary Care Provider] - Follow up as needed Notes: 43-year-old female with past medical history of thyroidectomy, asthma presents with complaints of palpitations and concern about her TSH and PTH levels. I saw her here on 09/29/2018 and her PTH level was significantly elevated from previous lab draw couple of days prior. Patient states she has an endocrinology appointment in [place] at 1420 today. Patient denies any current palpitations, denies acute shortness of breath, denies dysphagia or throat swelling, patient denies any respiratory compromise, denies any stridor, denies any psychomotor agitation, denies any diaphoresis, does complain of palpitations. TRAVEL OUTSIDE OF THE [place] IN LAST 30 DAYS: No - Related Data Allergies/Adverse Reactions: Cephalosporins Allergy (Severe, Verified 09/29/18 16:26) Throat itching and swelling ciprofloxacin [From Cipro] Allergy (Severe, Verified 09/29/18 16:26) Blistering in mouth and throat ethyl alcohol Allergy (Severe, Verified 09/29/18 16:26) Shortness of Breath, cough, difficulty breathing fluticasone [From Flonase] Allergy (Severe, Verified 09/29/18 16:26) Migraine, nose bleed latex Allergy (Severe, Verified 09/29/18 16:26) RASH Penicillins Allergy (Severe, Verified 09/29/18 16:26) Throat swelling, difficulty breathing cephalexin [From Keflex] Allergy (Verified 09/29/18 16:26) Throat swelling, difficulty breathing dexlansoprazole [From Dexilant] Allergy (Verified 09/29/18 16:26) erythromycin base [From Erythrocin] Allergy (Verified 09/29/18 16:26) Hives fluoxetine [From Prozac] Allergy (Verified 09/29/18 16:26) metronidazole [From Flagyl] Allergy (Verified 09/29/18 16:43) Swelling of Throat prednisone Allergy (Verified 09/29/18 16:26) Tachycardia sertraline [From Zoloft] Allergy (Verified 09/29/18 16:26) aspirin Adverse Reaction (Verified 09/29/18 16:26) N&V Sulfa (Sulfonamide Antibiotics) Adverse Reaction (Verified 09/29/18 16:26) See Comments IV dye Allergy (Uncoded 09/29/18 16:26) arrhythmia Past Medical History - Social History Smoking Status: Unknown if Ever Smoked Family History: Reviewed & Not Pertinent - Past Medical History Cardiac Medical History: Reports: Hx Heart Attack - 2010, Hx Hypertension - HX OF Denies: Hx Coronary Artery Disease Pulmonary Medical History: Reports: Hx Asthma, Hx COPD - INHALERS Denies: Hx Bronchitis, Hx Pneumonia Neurological Medical History: Reports: Hx Migraine, Hx Seizures - NO MEDS - LAST 2013 - NOT CURRENT. Denies: Hx Cerebrovascular Accident Endocrine Medical History: Reports: Hx Diabetes Mellitus Type 2 Renal/ Medical History: Denies: Hx Peritoneal Dialysis Musculoskeletal Medical History: Denies Hx Arthritis Past Surgical History: Reports: Hx Abdominal Surgery, Hx Cholecystectomy, Hx Gynecologic Surgery, Hx Hysterectomy, Hx Nose Surgery, Hx Thyroid Surgery, Hx Tubal Ligation - Immunizations Immunizations up to date: Yes Hx Diphtheria, Pertussis, Tetanus Vaccination: No Review of Systems - Review of Systems Constitutional: See HPI EENT: No symptoms reported Cardiovascular: See HPI Respiratory: See HPI Gastrointestinal: No symptoms reported Genitourinary: No symptoms reported Female Genitourinary: No symptoms reported Musculoskeletal: No symptoms reported Skin: No symptoms reported Hematologic/Lymphatic: No symptoms reported Neurological/Psychological: See HPI Physical Exam - Vital signs Vitals: Temp Pulse Resp BP Pulse Ox 97.5 F 98 20 144/95 H 98 10/03/18 11:04 10/03/18 11:04 10/03/18 11:04 10/03/18 11:04 10/03/18 11:04 - Notes Notes: PHYSICAL EXAMINATION: Reviewed vital signs and charting by RN GENERAL: Alert, interacts well. No acute distress. HEAD: Normocephalic, atraumatic. EYES: Pupils equal and round. Extraocular movements intact. ENT: Oral mucosa moist, tongue midline. NECK: Full range of motion. Trachea midline. LUNGS: Clear to auscultation bilaterally, no wheezes, rales, or rhonchi. No respiratory distress. HEART: Regular rate and rhythm. No murmur ABDOMEN: soft, non-tender. No distention. Bowel sounds present EXTREMITIES: Moves all 4 extremities spontaneously. No edema, No cyanosis. PSYCH: Normal affect, normal mood. SKIN: Warm, dry, normal turgor. No rashes or lesions noted. Course - Re-evaluation Re-evalutation: 10/03/18 12:32 Patient presents back to the emergency department after I saw her 4 days ago. Patient states she was having palpitations but is currently asymptomatic and has been well in the emergency department. EKG showed normal sinus rhythm with no PVCs. Patient denies any symptoms at this time. I have ordered a PTH and TSH and will follow up with the patient with those results as she has an e ndocrinology appointment that she needs to go to at 1420. I feel because there is no emergent condition at this time patient's interests are best served promptly facilitating her to make the appointment. Stable for discharge 10/03/18 12:34 - Vital Signs Vital signs: Temp Pulse Resp BP Pulse Ox 97.5 F 98 20 144/95 H 98 10/03/18 11:04 10/03/18 11:04 10/03/18 11:04 10/03/18 11:04 10/03/18 11:04 - Laboratory Result Diagrams: 10/03/18 11:45 10/03/18 11:45 Discharge - Discharge Clinical Impression: Palpitations Condition: Good Disposition: HOME, SELF-CARE Additional Instructions: You were seen in the emergency department this morning for heart palpitations. Your EKG and. Of observation was all very reassuring and none were captured on EKG or the monitor. We will also check your TSH and PTH levels and I will follow-up and call you with those. There is nothing that we saw here in the emergency department that is concerning or dangerous. What is most important that you go to your endocrinology appointment with Dr. Wadsworth. If in between leaving here and going to the gas meter checker's office you to pass out, have a rapid sustained heart rate, severe intractable central chest pain, or you have any other concerning symptoms please immediately go directly to the nearest emergency department. Referrals: SUDHAKAR GRIFFITH PA-C [Primary Care Provider] - Follow up as needed
[2018-10-03 12:30] LABS: ABSOLUTE BASOPHILS # (AUTO) 0.1 10^3/uL (0.0-0.2); ABSOLUTE EOSINOPHILS # (AUTO) 0.2 10^3/uL (0.0-0.6); ABSOLUTE LYMPHOCYTES (AUTO) 1.3 10^3/uL (0.5-4.7); ABSOLUTE MONOCYTES (AUTO) 0.6 10^3/uL (0.1-1.4); ABSOLUTE NEUT (AUTO) 6.2 10^3/uL (1.7-8.2); BASOPHILS % (AUTO) 0.6 % (0-2); EOSINOPHILS % (AUTO) 2.1 % (0-6); HEMATOCRIT 42.2 % (36.0-47.0); HEMOGLOBIN 14.2 g/dL (12.0-15.5); LYMPHOCYTES % (AUTO) 15.6 % (13-45); MEAN CORPUSCULAR HEMOGLOBIN 30.3 pg (27.0-33.4); MEAN CORPUSCULAR HGB CONC 33.7 g/dL (32.0-36.0); MEAN CORPUSCULAR VOLUME 90 fl (80-97); MONOCYTES % (AUTO) 7.3 % (3-13); PLATELET COUNT 191 10^3/uL (150-450); RED CELL DISTRIBUTION WIDTH 15.2 % (11.5-14.0); SEGMENTED NEUTROPHILS % (AUTO) 74.4 % (42-78); TOTAL CELLS COUNTED % (AUTO) 100 %; WHITE BLOOD COUNT 8.4 10^3/uL (4.0-10.5)
--- NOTE | 2018-10-03 15:53 | EKG REPORT ---
SEVERITY:- NORMAL ECG - SINUS RHYTHM : Confirmed by: Nicole Rodriguez MD 03-Oct-2018 15:51:35
== END 2018-10-03 12:38 | disposition home or self-care (01) ==
LOC: ER 10:55
DX: R00.2 Palpitations (principal); Z88.3 Allergy status to other anti-infective agents; Z91.040 Latex allergy status; Z88.0 Allergy status to penicillin; Z88.2 Allergy status to sulfonamides; I25.2 Old myocardial infarction
CPT/HCPCS: 36415; 80053; 84443; 85025; 93005; 93010

== ENCOUNTER 2018-11-05 16:45 | Emergency (ER) | payer BC ==
--- NOTE | 2018-11-05 17:17 | ER Document Report ---
ED Medical Screen (RME) - General Chief Complaint: Palpitations Stated Complaint: PALPITATIONS Time Seen by Provider: 11/05/18 17:10 Primary Care Provider: SUDHAKAR GRIFFITH PA-C [Primary Care Provider] - Follow up as needed Mode of Arrival: Ambulatory Information source: Patient Notes: This 43-year-old female with history of PTH presents emergency department with complaints of fluctuating heart rate from 40 up to 188 with chest pressure back pain nausea. Patient reports history of PTH. Reports she feels short of breath., Reports nausea but also reports she denies his nausea. Also reports she is has chest muscular pressure is not sure if it is coming from her palpitations or from her usual muscular pressure. Patient's aircraft inspector is Dr. Rodriguez. I have greeted and performed a rapid initial assessment of this patient. A comprehensive ED assessment and evaluation of the patient, analysis of test results and completion of the medical decision making process will be conducted by additional ED providers. Dictation of this chart was performed using voice recognition software; therefore, there may be some unintended grammatical errors. TRAVEL OUTSIDE OF THE [place] IN LAST 30 DAYS: No - Related Data Allergies/Adverse Reactions: Cephalosporins Allergy (Severe, Verified 09/29/18 16:26) Throat itching and swelling ciprofloxacin [From Cipro] Allergy (Severe, Verified 09/29/18 16:26) Blistering in mouth and throat ethyl alcohol Allergy (Severe, Verified 09/29/18 16:26) Shortness of Breath, cough, difficulty breathing fluticasone [From Flonase] Allergy (Severe, Verified 09/29/18 16:26) Migraine, nose bleed latex Allergy (Severe, Verified 09/29/18 16:26) RASH Penicillins Allergy (Severe, Verified 09/29/18 16:26) Throat swelling, difficulty breathing cephalexin [From Keflex] Allergy (Verified 09/29/18 16:26) Throat swelling, difficulty breathing dexlansoprazole [From Dexilant] Allergy (Verified 09/29/18 16:26) erythromycin base [From Erythrocin] Allergy (Verified 09/29/18 16:26) Hives fluoxetine [From Prozac] Allergy (Verified 09/29/18 16:26) metronidazole [From Flagyl] Allergy (Verified 09/29/18 16:43) Swelling of Throat prednisone Allergy (Verified 09/29/18 16:26) Tachycardia sertraline [From Zoloft] Allergy (Verified 09/29/18 16:26) aspirin Adverse Reaction (Verified 09/29/18 16:26) N&V Sulfa (Sulfonamide Antibiotics) Adverse Reaction (Verified 09/29/18 16:26) See Comments IV dye Allergy (Uncoded 09/29/18 16:26) arrhythmia Past Medical History - Social History Family history: None - Past Medical History Cardiac Medical History: Reports: Hx Heart Attack - 2009, Hx Hypertension - HX OF Denies: Hx Coronary Artery Disease Pulmonary Medical History: Reports: Hx Asthma, Hx COPD - INHALERS Denies: Hx Bronchitis, Hx Pneumonia Neurological Medical History: Reports: Hx Migraine, Hx Seizures - NO MEDS - LAST 2013 - NOT CURRENT. Denies: Hx Cerebrovascular Accident Endocrine Medical History: Reports: Hx Diabetes Mellitus Type 2 Renal/ Medical History: Denies: Hx Peritoneal Dialysis Musculoskeltal Medical History: Denies Hx Arthritis Past Surgical History: Reports: Hx Abdominal Surgery, Hx Cholecystectomy, Hx Gynecologic Surgery, Hx Hysterectomy, Hx Nose Surgery, Hx Thyroid Surgery, Hx Tubal Ligation - Immunizations Immunizations up to date: Yes Hx Diphtheria, Pertussis, Tetanus Vaccination: No History of Influenza Vaccine for 11/2016 - 04/2017 Season: No Physical Exam - Vital signs Vitals: Temp Pulse Resp BP Pulse Ox 97.6 F 91 16 140/95 H 98 11/05/18 16:59 11/05/18 16:59 11/05/18 16:59 11/05/18 16:59 11/05/18 16:59 Course - Vital Signs Vital signs: Temp Pulse Resp BP Pulse Ox 97.6 F 91 16 140/95 H 98 11/05/18 16:59 11/05/18 16:59 11/05/18 16:59 11/05/18 16:59 11/05/18 16:59 Doctor's Discharge - Discharge Referrals: SUDHAKAR GRIFFITH PA-C [Primary Care Provider] - Follow up as needed
[2018-11-05 17:42] LABS: ABSOLUTE BASOPHILS # (AUTO) 0.1 10^3/uL (0.0-0.2); ABSOLUTE EOSINOPHILS # (AUTO) 0.2 10^3/uL (0.0-0.6); ABSOLUTE MONOCYTES (AUTO) 0.4 10^3/uL (0.1-1.4); ABSOLUTE NEUT (AUTO) 4.6 10^3/uL (1.7-8.2); BASOPHILS % (AUTO) 0.8 % (0-2); HEMATOCRIT 43.1 % (36.0-47.0); HEMOGLOBIN 14.5 g/dL (12.0-15.5); LYMPHOCYTES % (AUTO) 27.1 % (13-45); MEAN CORPUSCULAR HEMOGLOBIN 30.2 pg (27.0-33.4); MEAN CORPUSCULAR HGB CONC 33.6 g/dL (32.0-36.0); MEAN CORPUSCULAR VOLUME 90 fl (80-97); MONOCYTES % (AUTO) 6.1 % (3-13); PLATELET COUNT 198 10^3/uL (150-450); RED BLOOD COUNT 4.81 10^6/uL (3.72-5.28); RED CELL DISTRIBUTION WIDTH 13.9 % (11.5-14.0); TOTAL CELLS COUNTED % (AUTO) 100 %; WHITE BLOOD COUNT 7.3 10^3/uL (4.0-10.5)
[2018-11-05 18:00] LABS: ALBUMIN 4.5 g/dL (3.5-5.0); ALKALINE PHOSPHATASE 70 U/L (38-126); ANION GAP 11 (5-19); ASPARTATE AMINO TRANSFERASE 19 U/L (14-36); BILIRUBIN,DIRECT 0.1 mg/dL (0.0-0.4); BILIRUBIN,TOTAL 0.4 mg/dL (0.2-1.3); BLOOD UREA NITROGEN 8 mg/dL (7-20); CALCIUM 10.1 mg/dL (8.4-10.2); CARBON DIOXIDE 26 mmol/L (22-30); CHLORIDE 102 mmol/L (98-107); CREATINE KINASE 53 U/L (30-135); GLUCOSE 99 mg/dL (75-110); POTASSIUM 4.2 mmol/L (3.6-5.0); TOTAL PROTEIN 7.3 g/dL (6.3-8.2)
--- NOTE | 2018-11-05 18:00 | RADIOLOGY REPORT (SQ) ---
EXAM DESCRIPTION: CHEST 2 VIEWS COMPLETED DATE/TIME: 11/05/2018 5:37 pm REASON FOR STUDY: cp COMPARISON: 07/27/2018 TECHNIQUE: Frontal and lateral radiographic views of the chest acquired. NUMBER OF VIEWS: Two view. LIMITATIONS: None. FINDINGS: LUNGS AND PLEURA: No pneumothorax. No consolidation or pleural effusion. MEDIASTINUM AND HILAR STRUCTURES: Stable. HEART AND VASCULAR STRUCTURES: Stable. BONES: No acute findings. HARDWARE: None in the chest. OTHER: No other significant finding. IMPRESSION: NO ACUTE FINDINGS. TECHNICAL DOCUMENTATION: JOB ID: [id number] [place]-72 2010 [employer]- All Rights Reserved Reading location - IP/workstation name: [email or web address]
[2018-11-05 18:13] LABS: CREATINE KINASE MB < 0.22 ng/mL (<4.55); TROPONIN I < 0.012 ng/mL
--- NOTE | 2018-11-05 22:13 | EKG REPORT ---
SEVERITY:- BORDERLINE ECG - SINUS RHYTHM BORDERLINE INFERIOR Q WAVES : Confirmed by: Sergio Mueller MD 05-Nov-2018 22:13:15
[2018-11-05 22:20] VITALS: BP 122/81
--- NOTE | 2018-11-05 23:18 | ER Document Report ---
ED Cardiac - General Chief Complaint: Palpitations Stated Complaint: PALPITATIONS Time Seen by Provider: 11/05/18 17:10 Primary Care Provider: SUDHAKAR GRIFFITH PA-C [Primary Care Provider] - Follow up as needed Mode of Arrival: Ambulatory Information source: Patient, Relative Notes: Patient complains of palpitations. She also has chest wall pain. No shortness of breath. No rashes. She denies trauma. She has had work-up of hypoparathyroidism for the past year. She recently started on a ketogenic low- carb high fat diet and feels worse on this new diet. She is trying to prevent diabetes. No other complaints. She is a smoker. TRAVEL OUTSIDE OF THE [place] IN LAST 30 DAYS: No - Related Data Allergies/Adverse Reactions: Cephalosporins Allergy (Severe, Verified 09/29/18 16:26) Throat itching and swelling ciprofloxacin [From Cipro] Allergy (Severe, Verified 09/29/18 16:26) Blistering in mouth and throat ethyl alcohol Allergy (Severe, Verified 09/29/18 16:26) Shortness of Breath, cough, difficulty breathing fluticasone [From Flonase] Allergy (Severe, Verified 09/29/18 16:26) Migraine, nose bleed latex Allergy (Severe, Verified 09/29/18 16:26) RASH Penicillins Allergy (Severe, Verified 09/29/18 16:26) Throat swelling, difficulty breathing cephalexin [From Keflex] Allergy (Verified 09/29/18 16:26) Throat swelling, difficulty breathing dexlansoprazole [From Dexilant] Allergy (Verified 09/29/18 16:26) erythromycin base [From Erythrocin] Allergy (Verified 09/29/18 16:26) Hives fluoxetine [From Prozac] Allergy (Verified 09/29/18 16:26) metronidazole [From Flagyl] Allergy (Verified 09/29/18 16:43) Swelling of Throat prednisone Allergy (Verified 09/29/18 16:26) Tachycardia sertraline [From Zoloft] Allergy (Verified 09/29/18 16:26) aspirin Adverse Reaction (Verified 09/29/18 16:26) N&V Sulfa (Sulfonamide Antibiotics) Adverse Reaction (Verified 09/29/18 16:26) See Comments IV dye Allergy (Uncoded 09/29/18 16:26) arrhythmia Past Medical History - General Information source: Patient - Social History Smoking Status: Current Every Day Smoker Family History: Reviewed & Not Pertinent Patient has suicidal ideation: No Patient has homicidal ideation: No - Past Medical History Cardiac Medical History: Reports: Hx Heart Attack - 2010, Hx Hypertension - HX OF Denies: Hx Coronary Artery Disease Pulmonary Medical History: Reports: Hx Asthma, Hx COPD - INHALERS Denies: Hx Bronchitis, Hx Pneumonia Neurological Medical History: Reports: Hx Migraine, Hx Seizures - NO MEDS - LAST 2013 - NOT CURRENT. Denies: Hx Cerebrovascular Accident Endocrine Medical History: Reports: Hx Diabetes Mellitus Type 2 Renal/ Medical History: Denies: Hx Peritoneal Dialysis Musculoskeletal Medical History: Denies Hx Arthritis Past Surgical History: Reports: Hx Abdominal Surgery, Hx Cholecystectomy, Hx Gynecologic Surgery, Hx Hysterectomy, Hx Nose Surgery, Hx Thyroid Surgery, Hx Tubal Ligation - Immunizations Immunizations up to date: Yes Hx Diphtheria, Pertussis, Tetanus Vaccination: No Review of Systems - Review of Systems Constitutional: denies: Chills, Fever -: Yes All other systems reviewed and negative Physical Exam - Vital signs Vitals: Temp Pulse Resp BP Pulse Ox 97.6 F 91 16 140/95 H 98 11/05/18 16:59 11/05/18 16:59 11/05/18 16:59 11/05/18 16:59 11/05/18 16:59 - General General appearance: Appears well, Alert - HEENT Head: Normocephalic, Atraumatic Eyes: Normal Pupils: PERRL - Respiratory Respiratory status: No respiratory distress Chest status: Nontender Breath sounds: Normal Chest palpation: Normal - Cardiovascular Rhythm: Regular Heart sounds: Normal auscultation Murmur: No - Abdominal Inspection: Normal Distension: No distension Bowel sounds: Normal Tenderness: Nontender Organomegaly: No organomegaly - Back Back: Normal, Nontender - Extremities General upper extremity: Normal inspection, Nontender, Normal color, Normal ROM, Normal temperature General lower extremity: Normal inspection, Nontender, Normal color, Normal ROM, Normal temperature, Normal weight bearing. No: Keke's sign - Neurological Neuro grossly intact: Yes Cognition: Normal Orientation: AAOx4 [place] Coma Scale Eye Opening: Spontaneous [place] Coma Scale Verbal: Oriented [place] Coma Scale Motor: Obeys Commands [place] Coma Scale Total: 15 Speech: Normal Motor strength normal: LUE, RUE, LLE, RLE Sensory: Normal - Psychological Associated symptoms: Normal affect, Normal mood - Skin Skin Temperature: Warm Skin Moisture: Dry Skin Color: Normal Course - Re-evaluation Re-evalutation: 11/05/18 23:15 EKG per me normal sinus rhythm at a rate of 87 with artifact. Normal R wave axis. Normal R wave progression. 11/05/18 23:16 I have reviewed the labs and x-ray with the patient. Her palpitations have resolved. She will return at once if worse or new symptoms and follow-up with her doctor in the next couple days. - Vital Signs Vital signs: Temp Pulse Resp BP Pulse Ox 97.9 F 55 L 18 122/81 97 11/05/18 22:19 11/05/18 22:19 11/05/18 22:19 11/05/18 22:19 11/05/18 22:19 - Laboratory Result Diagrams: 11/05/18 17:23 11/05/18 17:23 - Diagnostic Test Radiology reviewed: Image reviewed, Reports reviewed Discharge - Discharge Clinical Impression: Palpitations Condition: Stable Disposition: HOME, SELF-CARE Instructions: Palpitations (Irregular or Rapid Heartrate) ([facility]) Additional Instructions: Return at once if worse or new symptoms. See your doctor in the next couple days for recheck. Referrals: SUDHAKAR GRIFFITH PA-C [Primary Care Provider] - Follow up as needed
== END 2018-11-05 23:30 | disposition home or self-care (01) ==
LOC: ER 16:45
DX: R00.2 Palpitations (principal); R07.89 Other chest pain; F17.200 Nicotine dependence, unspecified, uncomplicated; I10 Essential (primary) hypertension; I25.2 Old myocardial infarction; J44.9 Chronic obstructive pulmonary disease, unspecified; E11.9 Type 2 diabetes mellitus without complications; Z88.1 Allergy status to other antibiotic agents; Z91.018 Allergy to other foods; Z91.040 Latex allergy status; Z88.0 Allergy status to penicillin; Z88.8 Allergy status to other drugs, medicaments and biological substances; Z91.041 Radiographic dye allergy status
CPT/HCPCS: 36415; 71046; 80053; 82550; 82553; 84484; 85025; 93005; 93010; 99285

== ENCOUNTER 2018-11-14 18:16 | Emergency (ER) | payer BC ==
--- NOTE | 2018-11-14 19:49 | ER Document Report ---
ED Medical Screen (RME) - General Stated Complaint: CHEST PRESSURE/LEG PAIN Time Seen by Provider: 11/14/18 19:41 Primary Care Provider: SUDHAKAR GRIFFITH PA-C [Primary Care Provider] - Follow up as needed TRAVEL OUTSIDE OF THE [place] IN LAST 30 DAYS: No - HPI Notes: 11/14/18 19:47 Patient is a 43-year-old female with a history of thyroid and parathyroid health issues who presents complaining of right calf pain and feeling right chest pressure this afternoon. Patient states that she usually does have some pain to her legs, but this is a little different than usual. Pain does not radiate. Patient states that she did have surgery 4 days ago for septoplasty. No fever. + smoker. Denies previous DVT/PE. Denies [place], fever, URI, n/v/d, Abd pain, dysuria, back pain, or rash. I have treated and performed a rapid initial assessment of this patient. A comprehensive ED assessment and evaluation of the patient, analysis of test results and completion of medical decision making process will be conducted by additional ED providers. PHYSICAL EXAMINATION: GENERAL: Well-appearing, well-nourished and in no acute distress. A&Ox4. Answers questions appropriately. LUNGS: Breath sounds clear to auscultation bilaterally and equal. No wheezes rales or rhonchi. HEART: Regular rate and rhythm without murmurs, rubs, gallops. Extremities: No cyanosis, clubbing, or edema b/l. No lower extremity asy mmetry. + mild tenderness rt calf. NEUROLOGICAL: Normal speech, normal gait. PSYCH: Normal mood, normal affect. - Related Data Allergies/Adverse Reactions: Cephalosporins Allergy (Severe, Verified 09/29/18 16:26) Throat itching and swelling ciprofloxacin [From Cipro] Allergy (Severe, Verified 09/29/18 16:26) Blistering in mouth and throat ethyl alcohol Allergy (Severe, Verified 09/29/18 16:26) Shortness of Breath, cough, difficulty breathing fluticasone [From Flonase] Allergy (Severe, Verified 09/29/18 16:26) Migraine, nose bleed latex Allergy (Severe, Verified 09/29/18 16:26) RASH Penicillins Allergy (Severe, Verified 09/29/18 16:26) Throat swelling, difficulty breathing cephalexin [From Keflex] Allergy (Verified 08/15/19 16:26) Throat swelling, difficulty breathing dexlansoprazole [From Dexilant] Allergy (Verified 09/29/18 16:26) erythromycin base [From Erythrocin] Allergy (Verified 09/29/18 16:26) Hives fluoxetine [From Prozac] Allergy (Verified 09/29/18 16:26) metronidazole [From Flagyl] Allergy (Verified 09/29/18 16:43) Swelling of Throat prednisone Allergy (Verified 09/29/18 16:26) Tachycardia sertraline [From Zoloft] Allergy (Verified 09/29/18 16:26) aspirin Adverse Reaction (Verified 09/29/18 16:26) N&V Sulfa (Sulfonamide Antibiotics) Adverse Reaction (Verified 09/29/18 16:26) See Comments IV dye Allergy (Uncoded 09/29/18 16:26) arrhythmia Past Medical History - Social History Family history: None - Past Medical History Cardiac Medical History: Reports: Hx Heart Attack - 2009, Hx Hypertension - HX OF Denies: Hx Coronary Artery Disease Pulmonary Medical History: Reports: Hx Asthma, Hx COPD - INHALERS Denies: Hx Bronchitis, Hx Pneumonia Neurological Medical History: Reports: Hx Migraine, Hx Seizures - NO MEDS - LAST 2013 - NOT CURRENT. Denies: Hx Cerebrovascular Accident Endocrine Medical History: Reports: Hx Diabetes Mellitus Type 2 Renal/ Medical History: Denies: Hx Peritoneal Dialysis Musculoskeltal Medical History: Denies Hx Arthritis Past Surgical History: Reports: Hx Abdominal Surgery, Hx Cholecystectomy, Hx Gynecologic Surgery, Hx Hysterectomy, Hx Nose Surgery, Hx Thyroid Surgery, Hx Tubal Ligation - Immunizations Immunizations up to date: Yes Hx Diphtheria, Pertussis, Tetanus Vaccination: No History of Influenza Vaccine for 11/2016 - 04/2017 Season: No Doctor's Discharge - Discharge Referrals: SUDHAKAR GRIFFITH PA-C [Primary Care Provider] - Follow up as needed
[2018-11-14 20:30] LABS: ABSOLUTE BASOPHILS # (AUTO) 0.1 10^3/uL (0.0-0.2); ABSOLUTE EOSINOPHILS # (AUTO) 0.2 10^3/uL (0.0-0.6); ABSOLUTE MONOCYTES (AUTO) 0.5 10^3/uL (0.1-1.4); ABSOLUTE NEUT (AUTO) 4.8 10^3/uL (1.7-8.2); HEMATOCRIT 42.3 % (36.0-47.0); HEMOGLOBIN 14.3 g/dL (12.0-15.5); LYMPHOCYTES % (AUTO) 26.5 % (13-45); MEAN CORPUSCULAR HEMOGLOBIN 30.3 pg (27.0-33.4); MEAN CORPUSCULAR HGB CONC 33.7 g/dL (32.0-36.0); MEAN CORPUSCULAR VOLUME 90 fl (80-97); MONOCYTES % (AUTO) 6.2 % (3-13); PLATELET COUNT 172 10^3/uL (150-450); RED BLOOD COUNT 4.71 10^6/uL (3.72-5.28); RED CELL DISTRIBUTION WIDTH 13.9 % (11.5-14.0); SEGMENTED NEUTROPHILS % (AUTO) 63.3 % (42-78); TOTAL CELLS COUNTED % (AUTO) 100 %; WHITE BLOOD COUNT 7.6 10^3/uL (4.0-10.5)
[2018-11-14 20:38] LABS: INTERNATIONAL RATION (INR) 0.95; PROTHROMBIN TIME 12.7 SEC (11.4-15.4)
[2018-11-14 20:50] LABS: ALBUMIN 4.2 g/dL (3.5-5.0); ALKALINE PHOSPHATASE 79 U/L (38-126); ANION GAP 7 (5-19); ASPARTATE AMINO TRANSFERASE 17 U/L (14-36); BILIRUBIN,DIRECT 0.1 mg/dL (0.0-0.4); BILIRUBIN,TOTAL 0.3 mg/dL (0.2-1.3); BLOOD UREA NITROGEN 9 mg/dL (7-20); CARBON DIOXIDE 28 mmol/L (22-30); CHLORIDE 102 mmol/L (98-107); GLUCOSE 95 mg/dL (75-110); POTASSIUM 3.8 mmol/L (3.6-5.0); TOTAL PROTEIN 7.1 g/dL (6.3-8.2)
--- NOTE | 2018-11-14 21:00 | RADIOLOGY REPORT (SQ) ---
XR CHEST 2 VIEWS CLINICAL STATEMENT: chest pressure COMPARISON: 11/05/2018 FINDINGS: Cardiomediastinal silhouette is within normal limits. There is no focal lung consolidation or pleural effusion. No evidence of pulmonary edema or pneumothorax. IMPRESSION: No acute cardiopulmonary disease.
--- NOTE | 2018-11-14 21:58 | RADIOLOGY REPORT (SQ) ---
Right lower extremity duplex venous ultrasonography HISTORY: Right leg swelling, rule out DVT. Technique: Duplex venous ultrasonography including color and spectral flow Doppler imaging was performed in right lower extremity, focusing on the deep venous system. FINDINGS: There is no evidence of thrombosis in the right common femoral, superficial femoral and popliteal veins. The veins are compressible and demonstrate normal response to augmentation. IMPRESSION: No evidence of DVT in right lower extremity.
--- NOTE | 2018-11-14 23:29 | ER Document Report ---
ED Cardiac - General Chief Complaint: Chest Pressure Stated Complaint: CHEST PRESSURE/LEG PAIN Time Seen by Provider: 11/14/18 19:41 Primary Care Provider: SUDHAKAR GRIFFITH PA-C [Primary Care Provider] - Follow up as needed Mode of Arrival: Ambulatory Information source: Patient TRAVEL OUTSIDE OF THE [place] IN LAST 30 DAYS: No - HPI Notes: Patient complains of palpitations. She states that she recently had sinus surgery within the last week. She states today she was having some burning in the back of her right leg as well as some heart palpitations. She states she has had palpitations before and they have found some thyroid and parathyroid problems. She denies any chest pain. Has some mild shortness of breath. No cough cold or congestion. Patient does not know anything that makes symptoms better or worse. No radiation symptoms. They are intermittent and mild. No fevers. - Related Data Allergies/Adverse Reactions: Cephalosporins Allergy (Severe, Verified 11/14/18 19:49) Throat itching and swelling ciprofloxacin [From Cipro] Allergy (Severe, Verified 11/14/18 19:49) Blistering in mouth and throat ethyl alcohol Allergy (Severe, Verified 11/14/18 19:49) Shortness of Breath, cough, difficulty breathing fluticasone [From Flonase] Allergy (Severe, Verified 11/14/18 19:49) Migraine, nose bleed latex Allergy (Severe, Verified 11/14/18 19:49) RASH Penicillins Allergy (Severe, Verified 11/14/18 19:49) Throat swelling, difficulty breathing cephalexin [From Keflex] Allergy (Verified 11/14/18 19:49) Throat swelling, difficulty breathing dexlansoprazole [From Dexilant] Allergy (Verified 11/14/18 19:49) erythromycin base [From Erythrocin] Allergy (Verified 11/14/18 19:49) Hives fluoxetine [From Prozac] Allergy (Verified 11/14/18 19:49) metronidazole [From Flagyl] Allergy (Verified 11/14/18 19:49) Swelling of Throat prednisone Allergy (Verified 11/14/18 19:49) Tachycardia sertraline [From Zoloft] Allergy (Verified 11/14/18 19:49) aspirin Adverse Reaction (Verified 11/14/18 19:49) N&V Sulfa (Sulfonamide Antibiotics) Adverse Reaction (Verified 11/14/18 19:49) See Comments IV dye Allergy (Uncoded 11/14/18 19:49) arrhythmia Past Medical History - General Information source: Patient - Social History Smoking Status: Current Every Day Smoker Chew tobacco use (# tins/day): No Frequency of alcohol use: None Drug Abuse: None Family History: Reviewed & Not Pertinent Patient has suicidal ideation: No Patient has homicidal ideation: No - Past Medical History Cardiac Medical History: Reports: Hx Heart Attack - 2009, Hx Hypertension - HX OF Denies: Hx Coronary Artery Disease Pulmonary Medical History: Reports: Hx Asthma, Hx COPD - INHALERS Denies: Hx Bronchitis, Hx Pneumonia Neurological Medical History: Reports: Hx Migraine, Hx Seizures - NO MEDS - LAST 2013 - NOT CURRENT. Denies: Hx Cerebrovascular Accident Endocrine Medical History: Reports: Hx Diabetes Mellitus Type 2 Renal/ Medical History: Denies: Hx Peritoneal Dialysis Musculoskeletal Medical History: Denies Hx Arthritis Past Surgical History: Reports: Hx Abdominal Surgery, Hx Cholecystectomy, Hx Gynecologic Surgery, Hx Hysterectomy, Hx Nose Surgery, Hx Thyroid Surgery, Hx Tubal Ligation - Immunizations Immunizations up to date: Yes Hx Diphtheria, Pertussis, Tetanus Vaccination: No Review of Systems - Review of Systems Constitutional: denies: Chills, Fever Cardiovascular: Palpitations. denies: Chest pain Respiratory: Cough, Short of breath -: Yes All other systems reviewed and negative Physical Exam - Vital signs Vitals: Temp Pulse Resp BP Pulse Ox 97.9 F 87 18 152/91 H 99 11/14/18 19:39 11/14/18 19:39 11/14/18 19:39 11/14/18 19:39 11/14/18 19:39 Interpretation: Hypertensive - General General appearance: Appears well, Alert - HEENT Head: Normocephalic, Atraumatic Eyes: Normal Pupils: PERRL - Respiratory Respiratory status: No respiratory distress Chest status: Nontender Breath sounds: Normal Chest palpation: Normal - Cardiovascular Rhythm: Regular Heart sounds: Normal auscultation Murmur: No - Abdominal Inspection: Normal Distension: No distension Bowel sounds: Normal Tenderness: Nontender Organomegaly: No organomegaly - Back Back: Normal, Nontender - Extremities General upper extremity: Normal inspection, Nontender, Normal color, Normal ROM, Normal temperature General lower extremity: Normal inspection, Nontender, Normal color, Normal ROM, Normal temperature, Normal weight bearing. No: Keke's sign - Neurological Neuro grossly intact: Yes Cognition: Normal Orientation: AAOx4 [place] Coma Scale Eye Opening: Spontaneous [place] Coma Scale Verbal: Oriented [place] Coma Scale Motor: Obeys Commands [place] Coma Scale Total: 15 Speech: Normal Motor strength normal: LUE, RUE, LLE, RLE Sensory: Normal - Psychological Associated symptoms: Normal affect, Normal mood - Skin Skin Temperature: Warm Skin Moisture: Dry Skin Color: Normal Course - Re-evaluation Re-evalutation: 11/14/18 23:28 Patient presents with calf pain and palpitations after recent surgery. There is no evidence of DVT. No evidence of arrhythmia. EKG is unremarkable. As is chest x-ray. I feel patient is stable for discharge. - Vital Signs Vital signs: Temp Pulse Resp BP Pulse Ox 97.9 F 87 18 152/91 H 99 11/14/18 19:39 11/14/18 19:39 11/14/18 19:39 11/14/18 19:39 11/14/18 19:39 - Laboratory Result Diagrams: 11/14/18 20:17 11/14/18 20:17 - Diagnostic Test Radiology reviewed: Image reviewed, Reports reviewed - EKG Interpretation by Me EKG shows normal: Sinus rhythm Rate: Normal - 83 Rhythm: NSR [place]/QRS: No: Right axis deviation, Left axis deviation Discharge - Discharge Clinical Impression: Palpitations Condition: Stable Disposition: HOME, SELF-CARE Instructions: Palpitations (Irregular or Rapid Heartrate) ([facility]) Additional Instructions: Please call your family doctor first thing in the morning to arrange follow-up Referrals: SUDHAKAR GRIFFITH PA-C [Primary Care Provider] - Follow up tomorrow
[2018-11-14 23:54] VITALS: BP 131/79
--- NOTE | 2018-11-15 00:30 | EKG REPORT ---
SEVERITY:- NORMAL ECG - SINUS RHYTHM : Confirmed by: Nicole Rodriguez MD 15-Nov-2018 00:30:26
== END 2018-11-15 00:02 | disposition home or self-care (01) ==
LOC: ER 18:16
DX: R00.2 Palpitations (principal); M79.661 Pain in right lower leg; F17.200 Nicotine dependence, unspecified, uncomplicated; I10 Essential (primary) hypertension; E11.9 Type 2 diabetes mellitus without complications; Z88.0 Allergy status to penicillin; Z91.040 Latex allergy status; Z88.3 Allergy status to other anti-infective agents; Z88.2 Allergy status to sulfonamides; Z91.041 Radiographic dye allergy status; I25.2 Old myocardial infarction; Z90.710 Acquired absence of both cervix and uterus
CPT/HCPCS: 36415; 71046; 80053; 84484; 85025; 85610; 93005; 93010; 93971; 99285

== ENCOUNTER 2018-11-19 15:47 | Emergency (ER) | payer BC ==
--- NOTE | 2018-11-19 16:14 | ER Document Report ---
ED Medical Screen (RME) - General Chief Complaint: Palpitations Stated Complaint: HEART PALPITATIONS Primary Care Provider: SUDHAKAR GRIFFITH PA-C [Primary Care Provider] - Follow up as needed Mode of Arrival: Ambulatory Information source: Patient Notes: 43-year-old female presents to ED for complaint of chest palpitation intermittently. She stated that he started to left foot about 4 to 3months and had come back a couple times since then just after a few seconds each time. She states she is not having any chest pain at the mall. She does have multiple chronic problems. Is on multiple chronic medications. She also has a UTI she is to start Macrobid for. Please see her previous admission to the ER. She states she smokes up to a pack a day of cigarettes. Patient is alert oriented respirations regular and unlabored speaking in full sentences walks with a even steady gait. Patient states her thyroid and parathyroid levels have been all over the place and sometimes they cause her palpitations. I have greeted and performed a rapid initial assessment of this patient. A comprehensive ED assessment and evaluation of the patient, analysis of test results and completion of medical decision making process will be conducted by an additional ED providers. TRAVEL OUTSIDE OF THE [place] IN LAST 30 DAYS: No - Related Data Allergies/Adverse Reactions: Cephalosporins Allergy (Severe, Verified 11/14/18 19:49) Throat itching and swelling ciprofloxacin [From Cipro] Allergy (Severe, Verified 11/14/18 19:49) Blistering in mouth and throat ethyl alcohol Allergy (Severe, Verified 11/14/18 19:49) Shortness of Breath, cough, difficulty breathing fluticasone [From Flonase] Allergy (Severe, Verified 11/14/18 19:49) Migraine, nose bleed latex Allergy (Severe, Verified 11/14/18 19:49) RASH Penicillins Allergy (Severe, Verified 11/14/18 19:49) Throat swelling, difficulty breathing cephalexin [From Keflex] Allergy (Verified 11/14/18 19:49) Throat swelling, difficulty breathing dexlansoprazole [From Dexilant] Allergy (Verified 11/14/18 19:49) erythromycin base [From Erythrocin] Allergy (Verified 11/14/18 19:49) Hives fluoxetine [From Prozac] Allergy (Verified 11/14/18 19:49) metronidazole [From Flagyl] Allergy (Verified 11/14/18 19:49) Swelling of Throat prednisone Allergy (Verified 11/14/18 19:49) Tachycardia sertraline [From Zoloft] Allergy (Verified 11/14/18 19:49) aspirin Adverse Reaction (Verified 11/14/18 19:49) N&V Sulfa (Sulfonamide Antibiotics) Adverse Reaction (Verified 11/14/18 19:49) See Comments IV dye Allergy (Uncoded 11/14/18 19:49) arrhythmia Past Medical History - Social History Family history: None - Past Medical History Cardiac Medical History: Reports: Hx Heart Attack - 2009, Hx Hypertension - HX OF Denies: Hx Coronary Artery Disease Pulmonary Medical History: Reports: Hx Asthma, Hx COPD - INHALERS Denies: Hx Bronchitis, Hx Pneumonia Neurological Medical History: Reports: Hx Migraine, Hx Seizures - NO MEDS - LAST 2013 - NOT CURRENT. Denies: Hx Cerebrovascular Accident Endocrine Medical History: Reports: Hx Diabetes Mellitus Type 2 Renal/ Medical History: Denies: Hx Peritoneal Dialysis Musculoskeltal Medical History: Denies Hx Arthritis Past Surgical History: Reports: Hx Abdominal Surgery, Hx Cholecystectomy, Hx Gynecologic Surgery, Hx Hysterectomy, Hx Nose Surgery, Hx Thyroid Surgery, Hx Tubal Ligation - Immunizations Immunizations up to date: Yes Hx Diphtheria, Pertussis, Tetanus Vaccination: No Physical Exam - Vital signs Vitals: Temp Pulse Resp BP Pulse Ox 97.8 F 88 18 136/86 H 96 11/19/18 16:02 11/19/18 16:02 11/19/18 16:02 11/19/18 16:02 11/19/18 16:02 Course - Vital Signs Vital signs: Temp Pulse Resp BP Pulse Ox 97.8 F 88 18 136/86 H 96 11/19/18 16:02 11/19/18 16:02 11/19/18 16:02 11/19/18 16:02 11/19/18 16:02 Doctor's Discharge - Discharge Referrals: SUDHAKAR GRIFFITH PA-C [Primary Care Provider] - Follow up as needed
[2018-11-19 16:30] LABS: ABSOLUTE BASOPHILS # (AUTO) 0.1 10^3/uL (0.0-0.2); ABSOLUTE EOSINOPHILS # (AUTO) 0.2 10^3/uL (0.0-0.6); ABSOLUTE LYMPHOCYTES (AUTO) 1.6 10^3/uL (0.5-4.7); ABSOLUTE MONOCYTES (AUTO) 0.5 10^3/uL (0.1-1.4); ABSOLUTE NEUT (AUTO) 5.2 10^3/uL (1.7-8.2); BASOPHILS % (AUTO) 0.7 % (0-2); EOSINOPHILS % (AUTO) 2.6 % (0-6); HEMOGLOBIN 14.2 g/dL (12.0-15.5); LYMPHOCYTES % (AUTO) 20.8 % (13-45); MEAN CORPUSCULAR HEMOGLOBIN 30.3 pg (27.0-33.4); MEAN CORPUSCULAR HGB CONC 33.8 g/dL (32.0-36.0); MEAN CORPUSCULAR VOLUME 90 fl (80-97); MONOCYTES % (AUTO) 6.6 % (3-13); PLATELET COUNT 174 10^3/uL (150-450); RED BLOOD COUNT 4.68 10^6/uL (3.72-5.28); RED CELL DISTRIBUTION WIDTH 13.8 % (11.5-14.0); SEGMENTED NEUTROPHILS % (AUTO) 69.3 % (42-78); TOTAL CELLS COUNTED % (AUTO) 100 %; WHITE BLOOD COUNT 7.5 10^3/uL (4.0-10.5)
[2018-11-19 16:48] LABS: INTERNATIONAL RATION (INR) 1.03; PROTHROMBIN TIME 13.5 SEC (11.4-15.4)
--- NOTE | 2018-11-19 16:50 | RADIOLOGY REPORT (SQ) ---
EXAM DESCRIPTION: CHEST 2 VIEWS COMPLETED DATE/TIME: 11/19/2018 4:37 pm REASON FOR STUDY: palpitation COMPARISON: Chest x-ray 11/14/2018, 11/05/2018 EXAM PARAMETERS: NUMBER OF VIEWS: two views TECHNIQUE: Digital Frontal and Lateral radiographic views of the chest acquired. RADIATION DOSE: NA LIMITATIONS: none FINDINGS: LUNGS AND PLEURA: No consolidation, pneumothorax or pleural effusion. MEDIASTINUM AND HILAR STRUCTURES: No masses or contour abnormalities. HEART AND VASCULAR STRUCTURES: Heart normal size. No evidence for failure. BONES: No acute findings. HARDWARE: None in the chest. IMPRESSION: NO ACUTE RADIOGRAPHIC FINDING IN THE CHEST. TECHNICAL DOCUMENTATION: JOB ID: [id number] [employer] All Rights Reserved Reading location - IP/workstation name: [email or web address]
[2018-11-19 17:22] LABS: ALBUMIN 4.4 g/dL (3.5-5.0); ALKALINE PHOSPHATASE 74 U/L (38-126); ANION GAP 11 (5-19); ASPARTATE AMINO TRANSFERASE 18 U/L (14-36); BILIRUBIN,DIRECT 0.1 mg/dL (0.0-0.4); BILIRUBIN,TOTAL 0.3 mg/dL (0.2-1.3); BLOOD UREA NITROGEN 9 mg/dL (7-20); CALCIUM 9.8 mg/dL (8.4-10.2); CARBON DIOXIDE 25 mmol/L (22-30); CHLORIDE 102 mmol/L (98-107); CREATINE KINASE 43 U/L (30-135); GLUCOSE 93 mg/dL (75-110); TOTAL PROTEIN 7.3 g/dL (6.3-8.2)
[2018-11-19 17:30] LABS: NT PRO BNP 44 pg/mL (<125)
--- NOTE | 2018-11-19 17:40 | ER Document Report ---
ED General - General Chief Complaint: Palpitations Stated Complaint: HEART PALPITATIONS Time Seen by Provider: 11/19/18 17:09 Primary Care Provider: SUDHAKAR GRIFFITH PA-C [Primary Care Provider] - Follow up as needed Mode of Arrival: Ambulatory Notes: 43-year-old female with past medical history of thyroidectomy, asthma with a recent sinus surgery presents with complaints of palpitations and concern about her TSH and PTH levels. She has been seen here multiple times in the past 5 weeks. Patient denies any current palpitations, denies acute shortness of breath, denies dysphagia or throat swelling, patient denies any respiratory compromise, denies any stridor, denies any psychomotor agitation, denies any diaphoresis, does complain of palpitations but none were captured on the monitor while interviewing the patient.. TRAVEL OUTSIDE OF THE [place] IN LAST 30 DAYS: No - Related Data Allergies/Adverse Reactions: Cephalosporins Allergy (Severe, Verified 11/14/18 19:49) Throat itching and swelling ciprofloxacin [From Cipro] Allergy (Severe, Verified 11/14/18 19:49) Blistering in mouth and throat ethyl alcohol Allergy (Severe, Verified 11/14/18 19:49) Shortness of Breath, cough, difficulty breathing fluticasone [From Flonase] Allergy (Severe, Verified 11/14/18 19:49) Migraine, nose bleed latex Allergy (Severe, Verified 11/14/18 19:49) RASH Penicillins Allergy (Severe, Verified 11/14/18 19:49) Throat swelling, difficulty breathing cephalexin [From Keflex] Allergy (Verified 11/14/18 19:49) Throat swelling, difficulty breathing dexlansoprazole [From Dexilant] Allergy (Verified 11/14/18 19:49) erythromycin base [From Erythrocin] Allergy (Verified 11/14/18 19:49) Hives fluoxetine [From Prozac] Allergy (Verified 11/14/18 19:49) metronidazole [From Flagyl] Allergy (Verified 11/14/18 19:49) Swelling of Throat prednisone Allergy (Verified 11/14/18 19:49) Tachycardia sertraline [From Zoloft] Allergy (Verified 11/14/18 19:49) aspirin Adverse Reaction (Verified 11/14/18 19:49) N&V Sulfa (Sulfonamide Antibiotics) Adverse Reaction (Verified 11/14/18 19:49) See Comments IV dye Allergy (Uncoded 11/14/18 19:49) arrhythmia Past Medical History - General Information source: Patient - Social History Smoking Status: Current Every Day Smoker Frequency of alcohol use: None Drug Abuse: None Family History: Reviewed & Not Pertinent Patient has suicidal ideation: No Patient has homicidal ideation: No - Past Medical History Cardiac Medical History: Reports: Hx Heart Attack - 2010, Hx Hypertension - HX OF Denies: Hx Coronary Artery Disease Pulmonary Medical History: Reports: Hx Asthma, Hx COPD - INHALERS Denies: Hx Bronchitis, Hx Pneumonia Neurological Medical History: Reports: Hx Migraine, Hx Seizures - NO MEDS - LAST 2013 - NOT CURRENT. Denies: Hx Cerebrovascular Accident Endocrine Medical History: Reports: Hx Diabetes Mellitus Type 2 Renal/ Medical History: Denies: Hx Peritoneal Dialysis Musculoskeletal Medical History: Denies Hx Arthritis Past Surgical History: Reports: Hx Abdominal Surgery, Hx Cholecystectomy, Hx Gynecologic Surgery, Hx Hysterectomy, Hx Nose Surgery, Hx Thyroid Surgery, Hx Tubal Ligation - Immunizations Immunizations up to date: Yes Hx Diphtheria, Pertussis, Tetanus Vaccination: No Review of Systems - Review of Systems Constitutional: See HPI EENT: No symptoms reported Cardiovascular: See HPI Respiratory: See HPI Gastrointestinal: See HPI Genitourinary: No symptoms reported Female Genitourinary: No symptoms reported Musculoskeletal: No symptoms reported Skin: No symptoms reported Hematologic/Lymphatic: No symptoms reported Neurological/Psychological: See HPI Physical Exam - Vital signs Vitals: Temp Pulse Resp BP Pulse Ox 97.8 F 88 18 136/86 H 96 11/19/18 16:02 11/19/18 16:02 11/19/18 16:02 11/19/18 16:02 11/19/18 16:02 - Notes Notes: PHYSICAL EXAMINATION: Reviewed vital signs and charting by RN GENERAL: Alert, interacts well. No acute distress. HEAD: Normocephalic, atraumatic. EYES: Pupils equal and round. Extraocular movements intact. ENT: Oral mucosa moist, tongue midline. NECK: Full range of motion. Trachea midline. LUNGS: Clear to auscultation bilaterally, no wheezes, rales, or rhonchi. No respiratory distress. HEART: Regular rate and rhythm. No murmur ABDOMEN: soft, non-tender. No distention. Bowel sounds present EXTREMITIES: Moves all 4 extremities spontaneously. No edema, No cyanosis. PSYCH: Normal affect, normal mood. SKIN: Warm, dry, normal turgor. No rashes or lesions noted. Course - Re-evaluation Re-evalutation: 11/19/18 18:58 Patient presents with chief complaint of palpitations that she states were symptomatic for about 15 minutes earlier today. Patient seen here multiple times in the last 2 months for the same chief complaint. Patient completely asymptomatic and no PVCs were captured on the monitor for several minutes while I was talking with her in the room. Lab work all within normal limits. I explained all this to patient and she understands that she needs to follow-up with endocrinology and is stable for discharge. Strict return precautions given. - Vital Signs Vital signs: Temp Pulse Resp BP Pulse Ox 97.8 F 88 18 136/86 H 96 11/19/18 16:02 11/19/18 16:02 11/19/18 16:02 11/19/18 16:02 11/19/18 16:02 - Laboratory Result Diagrams: 11/19/18 16:15 11/19/18 16:15 Discharge - Discharge Clinical Impression: Palpitations Condition: Good Disposition: HOME, SELF-CARE Additional Instructions: You were seen here in the emergency department today for heart palpitations and dizziness earlier. Your work-up was normal TSH level was 1.72. No palpitations were captured on the monitor which is very reassuring. Please return to the emergency department if you have any other concerns to include symptomatic palpitations, you pass out, you have severe chest pain, or you have any other concerning symptoms. Referrals: SUDHAKAR GRIFFITH PA-C [Primary Care Provider] - Follow up as needed
[2018-11-19 17:41] LABS: CREATINE KINASE MB < 0.22 ng/mL (<4.55); TROPONIN I < 0.012 ng/mL
[2018-11-19 19:11] VITALS: BP 120/83
--- NOTE | 2018-11-19 19:25 | EKG REPORT ---
SEVERITY:- NORMAL ECG - SINUS RHYTHM : Confirmed by: Nicole Rodriguez MD 19-Nov-2018 19:24:15
== END 2018-11-19 19:11 | disposition home or self-care (01) ==
LOC: ER 15:47
DX: R00.2 Palpitations (principal); E89.0 Postprocedural hypothyroidism; J45.909 Unspecified asthma, uncomplicated; I10 Essential (primary) hypertension; I25.2 Old myocardial infarction; J44.9 Chronic obstructive pulmonary disease, unspecified; E11.9 Type 2 diabetes mellitus without complications; Z98.890 Other specified postprocedural states; Z88.1 Allergy status to other antibiotic agents; Z91.018 Allergy to other foods; Z88.8 Allergy status to other drugs, medicaments and biological substances; Z91.040 Latex allergy status; Z88.0 Allergy status to penicillin; Z91.041 Radiographic dye allergy status
CPT/HCPCS: 36415; 71046; 80053; 82550; 82553; 83735; 83880; 84443; 84484; 85025; 85610; 85730; 93005; 93010; 99285

== ENCOUNTER 2018-12-06 11:59 | Emergency (ER) | payer BC ==
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
[2018-12-06 13:36] VITALS: BP 120/90
== END 2018-12-06 13:45 | disposition home or self-care (01) ==
LOC: ER 11:59
DX: S60.221A Contusion of right hand, initial encounter (principal); M79.641 Pain in right hand; M25.531 Pain in right wrist; Y04.2XXA Assault by strike against or bumped into by another person, initial encounter; F17.200 Nicotine dependence, unspecified, uncomplicated; I10 Essential (primary) hypertension; J44.9 Chronic obstructive pulmonary disease, unspecified; E11.9 Type 2 diabetes mellitus without complications
CPT/HCPCS: 99283

== ENCOUNTER 2018-12-09 19:57 | Emergency (ER) | payer BC ==
--- NOTE | 2018-12-09 20:27 | ER Document Report ---
ED General - General Chief Complaint: Chest Pressure Stated Complaint: CHEST PRESSURE/HEADACHE Time Seen by Provider: 12/09/18 20:15 Primary Care Provider: SUDHAKAR GRIFFITH PA-C [Primary Care Provider] - Follow up as needed Notes: 43-year-old patient with a long history of thyroid issues palpitations and other medical problems including neuropathy, presents with headache resolved. Happened 2 hours ago her blood pressure went up to 160s at home. She keeps of moravian diarrhea every medication and food that she is eating all day and had new foods today including several salty food like pickles. Several hours later she began having a dull headache. Pressure was in the 160s 170s. She came here and now her pressure down her head feels better. TRAVEL OUTSIDE OF THE [place] IN LAST 30 DAYS: No - Related Data Allergies/Adverse Reactions: Cephalosporins Allergy (Severe, Verified 12/06/18 12:14) Throat itching and swelling ciprofloxacin [From Cipro] Allergy (Severe, Verified 12/06/18 12:14) Blistering in mouth and throat ethyl alcohol Allergy (Severe, Verified 12/06/18 12:14) Shortness of Breath, cough, difficulty breathing fluticasone [From Flonase] Allergy (Severe, Verified 12/06/18 12:14) Migraine, nose bleed latex Allergy (Severe, Verified 12/06/18 12:14) RASH Penicillins Allergy (Severe, Verified 12/06/18 12:14) Throat swelling, difficulty breathing cephalexin [From Keflex] Allergy (Verified 12/06/18 12:14) Throat swelling, difficulty breathing dexlansoprazole [From Dexilant] Allergy (Verified 12/06/18 12:14) erythromycin base [From Erythrocin] Allergy (Verified 12/06/18 12:14) Hives fluoxetine [From Prozac] Allergy (Verified 12/06/18 12:14) metronidazole [From Flagyl] Allergy (Verified 12/06/18 12:14) Swelling of Throat prednisone Allergy (Verified 12/06/18 12:14) Tachycardia sertraline [From Zoloft] Allergy (Verified 12/06/18 12:14) aspirin Adverse Reaction (Verified 12/06/18 12:14) N&V Sulfa (Sulfonamide Antibiotics) Adverse Reaction (Verified 12/06/18 12:14) See Comments IV dye Allergy (Uncoded 12/06/18 12:14) arrhythmia Past Medical History - Social History Smoking Status: Unknown if Ever Smoked Family History: Reviewed & Not Pertinent - Past Medical History Cardiac Medical History: Reports: Hx Heart Attack - 2010, Hx Hypertension - HX OF Denies: Hx Coronary Artery Disease Pulmonary Medical History: Reports: Hx Asthma, Hx COPD - INHALERS Denies: Hx Bronchitis, Hx Pneumonia Neurological Medical History: Reports: Hx Migraine, Hx Seizures - NO MEDS - LAST 2013 - NOT CURRENT. Denies: Hx Cerebrovascular Accident Endocrine Medical History: Reports: Hx Diabetes Mellitus Type 2 Renal/ Medical History: Denies: Hx Peritoneal Dialysis Musculoskeletal Medical History: Denies Hx Arthritis Past Surgical History: Reports: Hx Abdominal Surgery, Hx Cholecystectomy, Hx Gynecologic Surgery, Hx Hysterectomy, Hx Nose Surgery, Hx Thyroid Surgery, Hx Tubal Ligation - Immunizations Immunizations up to date: Yes Hx Diphtheria, Pertussis, Tetanus Vaccination: No Review of Systems - Review of Systems Notes: REVIEW OF SYSTEMS GEN: Denies fever, chills, weight loss ENT: Denies sore throat, nasal discharge, ear pain EYES: Denies blurry vision, eye pain, discharge CV: Denies chest pain, palpitations, edema RESP: Denies cough, shortness of breath, wheezing GI: Denies abdominal pain, nausea, vomiting, diarrhea MSK: Denies joint pain/swelling, edema, SKIN: Denies rash, skin lesions LYMPH: Denies swollen glands/lymph nodes NEURO:, Resolved, denies, focal weakness or numbness, dizziness PSYCH: Denies depression, suicidal or homicidal ideation PHYSICAL EXAMINATION General: No acute distress, well-nourished Head: Atraumatic, normocephalic ENT: Mouth normal, oropharynx moist, no exudates or tonsillar enlargement Eyes: Conjunctiva normal, pupils equal, lids normal Neck: No JVD, supple, no guarding CVS: Normal rate, regular rhythm, no murmurs Resp: No resp distress, equal and normal breath sounds bilaterally GI: Nondistended, soft, no tenderness to palpation, no rebound or guarding Ext: No deformities, no edema, normal range of motion in upper and lower ext Back: No CVA or midline TTP Skin: No rash, warm Lymphatic: No lymphadeopathy noted Neuro: Awake, alert. Face symmetric. GCS 15. Cranial nerves II through XII are intact. Speech is fluent no facial droop. Normal strength in all 4 extremities. No sensory deficits. Normal coordination. Physical Exam - Vital signs Vitals: Resp Pulse Ox 21 H 97 12/09/18 20:15 12/09/18 20:15 Course - Re-evaluation Re-evalutation: 12/09/18 23:28 Resolving headache with single episode of hypertension. History of low blood pressure and labile blood pressure also has neuropathycould be autonomic neuropathy. On antibiotics for apparent UTI although no signs of sepsis here. No lateralizing neuro deficits on history or physical no chest pain no sign of hypertensive emergency. Pressure is down ED. Do not believe we need to look for a cause at this time nor treat the pressure given that her symptoms are resolving and were minimally symptomatic initially - Vital Signs Vital signs: Temp Pulse Resp BP Pulse Ox 98.3 F 13 147/90 H 99 12/09/18 20:23 12/09/18 20:23 12/09/18 20:23 12/09/18 20:23 - Laboratory Result Diagrams: 12/09/18 20:22 12/09/18 20:22 Discharge - Discharge Clinical Impression: Hypertension Qualifiers: Hypertension type: essential hypertension Qualified Code(s): I10 - Essential (primary) hypertension Condition: Good Disposition: HOME, SELF-CARE Instructions: High Blood Pressure ([facility]) Referrals: SUDHAKAR GRIFFITH PA-C [Primary Care Provider] - Follow up as needed
[2018-12-09 20:31] VITALS: BP 147/90
[2018-12-09 20:38] LABS: ABSOLUTE BASOPHILS # (AUTO) 0.1 10^3/uL (0.0-0.2); ABSOLUTE EOSINOPHILS # (AUTO) 0.2 10^3/uL (0.0-0.6); ABSOLUTE LYMPHOCYTES (AUTO) 1.7 10^3/uL (0.5-4.7); ABSOLUTE MONOCYTES (AUTO) 0.4 10^3/uL (0.1-1.4); ABSOLUTE NEUT (AUTO) 3.4 10^3/uL (1.7-8.2); BASOPHILS % (AUTO) 1.1 % (0-2); EOSINOPHILS % (AUTO) 4.2 % (0-6); HEMATOCRIT 37.8 % (36.0-47.0); HEMOGLOBIN 12.8 g/dL (12.0-15.5); LYMPHOCYTES % (AUTO) 29.6 % (13-45); MEAN CORPUSCULAR HEMOGLOBIN 30.3 pg (27.0-33.4); MEAN CORPUSCULAR HGB CONC 33.9 g/dL (32.0-36.0); MEAN CORPUSCULAR VOLUME 89 fl (80-97); MONOCYTES % (AUTO) 6.1 % (3-13); PLATELET COUNT 195 10^3/uL (150-450); RED BLOOD COUNT 4.24 10^6/uL (3.72-5.28); RED CELL DISTRIBUTION WIDTH 13.6 % (11.5-14.0); TOTAL CELLS COUNTED % (AUTO) 100 %; WHITE BLOOD COUNT 5.8 10^3/uL (4.0-10.5)
[2018-12-09 20:52] LABS: ALBUMIN 3.8 g/dL (3.5-5.0); ALKALINE PHOSPHATASE 65 U/L (38-126); ANION GAP 7 (5-19); ASPARTATE AMINO TRANSFERASE 18 U/L (14-36); BILIRUBIN,DIRECT 0.1 mg/dL (0.0-0.4); BILIRUBIN,TOTAL 0.2 mg/dL (0.2-1.3); BLOOD UREA NITROGEN 7 mg/dL (7-20); CALCIUM 9.3 mg/dL (8.4-10.2); CARBON DIOXIDE 25 mmol/L (22-30); CHLORIDE 107 mmol/L (98-107); CREATINE KINASE 43 U/L (30-135); GLUCOSE 82 mg/dL (75-110); POTASSIUM 3.9 mmol/L (3.6-5.0); TOTAL PROTEIN 6.5 g/dL (6.3-8.2)
[2018-12-09 21:04] LABS: CREATINE KINASE MB 0.35 ng/mL (<4.55); TROPONIN I < 0.012 ng/mL
--- NOTE | 2018-12-09 21:05 | RADIOLOGY REPORT (SQ) ---
EXAM DESCRIPTION: XR CHEST 1 VIEW COMPLETED DATE/TME: 12/09/2018 20:04 CLINICAL HISTORY: 43 years, Female, cp COMPARISON: Prior study from 11/19/2018 NUMBER OF VIEWS: One TECHNIQUE: Single frontal view of the chest was obtained LIMITATIONS: None. FINDINGS: Cardiac and mediastinal contours are stable. Lungs are clear. No pleural effusion or pneumothorax. IMPRESSION: No acute disease. copyright 2010 [employer]- All Rights Reserved
--- NOTE | 2018-12-10 13:09 | EKG REPORT ---
SEVERITY:- NORMAL ECG - SINUS RHYTHM : Confirmed by: Nicole Rodriguez MD 10-Dec-2018 13:08:45
== END 2018-12-09 20:50 | disposition home or self-care (01) ==
LOC: ER 19:57
DX: I10 Essential (primary) hypertension (principal); E11.40 Type 2 diabetes mellitus with diabetic neuropathy, unspecified; I25.2 Old myocardial infarction; J44.9 Chronic obstructive pulmonary disease, unspecified; Z88.1 Allergy status to other antibiotic agents; Z88.8 Allergy status to other drugs, medicaments and biological substances; Z88.0 Allergy status to penicillin; Z91.040 Latex allergy status; Z91.041 Radiographic dye allergy status
CPT/HCPCS: 36415; 71045; 80053; 82550; 82553; 84484; 85025; 93005; 93010; 99284

== ENCOUNTER 2018-12-13 09:55 | Emergency (ER) | payer BC ==
[2018-12-13 10:58] LABS: ABSOLUTE BASOPHILS # (AUTO) 0.1 10^3/uL (0.0-0.2); ABSOLUTE EOSINOPHILS # (AUTO) 0.2 10^3/uL (0.0-0.6); ABSOLUTE LYMPHOCYTES (AUTO) 1.3 10^3/uL (0.5-4.7); ABSOLUTE MONOCYTES (AUTO) 0.4 10^3/uL (0.1-1.4); BASOPHILS % (AUTO) 1.1 % (0-2); HEMATOCRIT 38.7 % (36.0-47.0); HEMOGLOBIN 13.2 g/dL (12.0-15.5); MEAN CORPUSCULAR HEMOGLOBIN 30.5 pg (27.0-33.4); MEAN CORPUSCULAR HGB CONC 34.1 g/dL (32.0-36.0); MEAN CORPUSCULAR VOLUME 90 fl (80-97); PLATELET COUNT 171 10^3/uL (150-450); RED BLOOD COUNT 4.31 10^6/uL (3.72-5.28); RED CELL DISTRIBUTION WIDTH 13.3 % (11.5-14.0); SEGMENTED NEUTROPHILS % (AUTO) 66.9 % (42-78); TOTAL CELLS COUNTED % (AUTO) 100 %
[2018-12-13 11:19] LABS: ALBUMIN 3.8 g/dL (3.5-5.0); ALKALINE PHOSPHATASE 60 U/L (38-126); ANION GAP 9 (5-19); ASPARTATE AMINO TRANSFERASE 19 U/L (14-36); BILIRUBIN,DIRECT 0.2 mg/dL (0.0-0.4); BILIRUBIN,TOTAL 0.3 mg/dL (0.2-1.3); BLOOD UREA NITROGEN 10 mg/dL (7-20); CALCIUM 9.2 mg/dL (8.4-10.2); CARBON DIOXIDE 24 mmol/L (22-30); CHLORIDE 107 mmol/L (98-107); GLUCOSE 98 mg/dL (75-110); POTASSIUM 3.9 mmol/L (3.6-5.0); TOTAL PROTEIN 6.4 g/dL (6.3-8.2)
--- NOTE | 2018-12-13 12:19 | ER Document Report ---
ED Blood Pressure Problem - General Chief Complaint: Headache Stated Complaint: BLOOD PRESSURE Time Seen by Provider: 12/13/18 10:41 Primary Care Provider: SUDHAKAR GRIFFITH PA-C [Primary Care Provider] - Follow up as needed Mode of Arrival: Ambulatory Information source: Patient TRAVEL OUTSIDE OF THE [place] IN LAST 30 DAYS: No - HPI Notes: Patient presents with complaints of headache. She also states about 3:00 in the morning she had some jaw pain and sweating. She states she felt that her blood pressures been elevated as well. She states that her blood pressure was as high as 150 at home. She states she checks her blood pressure 4-5 times per day. She states that she called her assisted living manager office today and they told her to come to the emergency department. She states currently she has no pain or symptoms. No significant shortness of breath. No nausea vomiting diarrhea. No cough cold or congestion. No fever or chills. Nothing made the pain better or worse. It did not radiate. It was moderate in intensity. It was a burning sensation. - Related Data Allergies/Adverse Reactions: Cephalosporins Allergy (Severe, Verified 12/13/18 10:00) Throat itching and swelling ciprofloxacin [From Cipro] Allergy (Severe, Verified 12/13/18 10:00) Blistering in mouth and throat ethyl alcohol Allergy (Severe, Verified 12/13/18 10:00) Shortness of Breath, cough, difficulty breathing fluticasone [From Flonase] Allergy (Severe, Verified 12/13/18 10:00) Migraine, nose bleed latex Allergy (Severe, Verified 12/13/18 10:00) RASH Penicillins Allergy (Severe, Verified 12/13/18 10:00) Throat swelling, difficulty breathing cephalexin [From Keflex] Allergy (Verified 12/13/18 10:00) Throat swelling, difficulty breathing dexlansoprazole [From Dexilant] Allergy (Verified 12/13/18 10:00) erythromycin base [From Erythrocin] Allergy (Verified 12/13/18 10:00) Hives fluoxetine [From Prozac] Allergy (Verified 12/13/18 10:00) metronidazole [From Flagyl] Allergy (Verified 12/13/18 10:00) Swelling of Throat prednisone Allergy (Verified 12/13/18 10:00) Tachycardia sertraline [From Zoloft] Allergy (Verified 12/13/18 10:00) aspirin Adverse Reaction (Verified 12/06/18 12:14) N&V Sulfa (Sulfonamide Antibiotics) Adverse Reaction (Verified 12/13/18 10:00) See Comments IV dye Allergy (Uncoded 12/13/18 10:00) arrhythmia Past Medical History - General Information source: Patient - Social History Smoking Status: Current Every Day Smoker Chew tobacco use (# tins/day): No Frequency of alcohol use: None Drug Abuse: None Family History: Reviewed & Not Pertinent Patient has suicidal ideation: No Patient has homicidal ideation: No - Past Medical History Cardiac Medical History: Reports: Hx Heart Attack - 2009, no stent, Hx Hypertension - HX OF, no meds Denies: Hx Coronary Artery Disease Pulmonary Medical History: Reports: Hx Asthma, Hx COPD - INHALERS Denies: Hx Bronchitis, Hx Pneumonia Neurological Medical History: Reports: Hx Migraine, Hx Seizures - NO MEDS - LAST 2013 - NOT CURRENT. Denies: Hx Cerebrovascular Accident Endocrine Medical History: Reports: Hx Diabetes Mellitus Type 2 Renal/ Medical History: Denies: Hx Peritoneal Dialysis Musculoskeletal Medical History: Denies Hx Arthritis Past Surgical History: Reports: Hx Abdominal Surgery, Hx Cholecystectomy, Hx Gynecologic Surgery, Hx Hysterectomy, Hx Nose Surgery, Hx Thyroid Surgery, Hx Tubal Ligation - Immunizations Immunizations up to date: Yes Hx Diphtheria, Pertussis, Tetanus Vaccination: No Review of Systems - Review of Systems Constitutional: denies: Chills, Fever Cardiovascular: denies: Chest pain, Palpitations Respiratory: denies: Cough, Short of breath Gastrointestinal: denies: Abdominal pain, Diarrhea, Vomiting Neurological/Psychological: Headaches -: Yes All other systems reviewed and negative Physical Exam - Vital signs Vitals: Temp Pulse Resp BP Pulse Ox 98.0 F 86 15 157/95 H 99 12/13/18 09:58 12/13/18 09:58 12/13/18 09:58 12/13/18 09:58 12/13/18 09:58 Interpretation: Hypertensive - General General appearance: Appears well, Alert - HEENT Head: Normocephalic, Atraumatic Eyes: Normal Pupils: PERRL - Respiratory Respiratory status: No respiratory distress Chest status: Nontender Breath sounds: Normal Chest palpation: Normal - Cardiovascular Rhythm: Regular Heart sounds: Normal auscultation Murmur: No - Abdominal Inspection: Normal Distension: No distension Bowel sounds: Normal Tenderness: Nontender Organomegaly: No organomegaly - Back Back: Normal, Nontender - Extremities General upper extremity: Normal inspection, Nontender, Normal color, Normal ROM, Normal temperature General lower extremity: Normal inspection, Nontender, Normal color, Normal ROM, Normal temperature, Normal weight bearing. No: Keke's sign - Neurological Neuro grossly intact: Yes Cognition: Normal Orientation: AAOx4 [place] Coma Scale Eye Opening: Spontaneous [place] Coma Scale Verbal: Oriented [place] Coma Scale Motor: Obeys Commands [place] Coma Scale Total: 15 Speech: Normal Motor strength normal: LUE, RUE, LLE, RLE Sensory: Normal - Psychological Associated symptoms: Normal affect, Normal mood - Skin Skin Temperature: Warm Skin Moisture: Dry Skin Color: Normal Course - Re-evaluation Re-evalutation: 12/13/18 12:16 Patient presents with some jaw pain and high blood pressure. EKG is unremarkable. Laboratories are also unremarkable. I do not believe that patient's presentation is consistent with coronary artery disease. I think she is safe for discharge. I have spoke to her assisted living manager, Dr. Rodriguez, who said that I am to have the patient call his cell phone and he will see the patient later in the week. I believe this is a reasonable plan. Patient is in agreement. - Vital Signs Vital signs: Temp Pulse Resp BP Pulse Ox 98.0 F 86 11 L 110/79 93 12/13/18 09:58 12/13/18 09:58 12/13/18 10:28 12/13/18 10:28 12/13/18 10:28 - Laboratory Result Diagrams: 12/13/18 10:44 12/13/18 10:44 - EKG Interpretation by Ks EKG shows normal: Sinus rhythm Rate: Normal - 82 Rhythm: NSR [place]/QRS: No: Right axis deviation, Left axis deviation Discharge - Discharge Clinical Impression: Jaw pain Headache Qualifiers: Headache type: unspecified Headache chronicity pattern: acute headache Intractability: not intractable Qualified Code(s): R51 - Headache Condition: Stable Disposition: HOME, SELF-CARE Instructions: Headache ([facility]) Additional Instructions: Please call Dr. Rodriguez as soon as possible. He said to call him on his cell phone. He says he will see you later in the week. Referrals: SUDHAKAR GRIFFITH PA-C [Primary Care Provider] - Follow up as needed
[2018-12-13 12:38] VITALS: BP 124/82
--- NOTE | 2018-12-13 13:57 | EKG REPORT ---
SEVERITY:- NORMAL ECG - SINUS RHYTHM : Confirmed by: Sergio Mueller MD 13-Dec-2018 13:56:53
== END 2018-12-13 12:30 | disposition home or self-care (01) ==
LOC: ER 09:55
DX: R68.84 Jaw pain (principal); R51 Headache; R03.0 Elevated blood-pressure reading, without diagnosis of hypertension; I10 Essential (primary) hypertension; Z88.3 Allergy status to other anti-infective agents; Z91.040 Latex allergy status; Z88.0 Allergy status to penicillin; Z88.2 Allergy status to sulfonamides; Z88.6 Allergy status to analgesic agent; I25.2 Old myocardial infarction
CPT/HCPCS: 36415; 80053; 84484; 85025; 93005; 93010; 99283

== ENCOUNTER → 2018-12-31 | Outpatient (CLI) | payer BC ==
--- NOTE | 2019-01-01 08:13 | RADIOLOGY REPORT (SQ) ---
EXAM DESCRIPTION: MRI CERVICAL SPINE WITHOUT COMPLETED DATE/TIME: 12/31/2018 4:32 pm REASON FOR STUDY: (M54.12)RADICULOPATHY, CERVICAL REGION M54.12 RADICULOPATHY, CERVICAL REGION COMPARISON: Cervical spine five views 07/22/2018 TECHNIQUE: Sagittal and Axial imaging includes T1, T2, STIR and gradient echo sequences. LIMITATIONS: None. FINDINGS: ALIGNMENT: Straightening of cervical lordosis VERTEBRAE: Intact. BONE MARROW: Normal. No marrow replacement or reactive changes. DISCS: Diffuse decreased T2 weighted intervertebral disc signal. No disc space loss of height HARDWARE: None in the spine. CORD AND BASE OF BRAIN: Normal in size and signal intensity. SOFT TISSUES: No soft tissue masses. C1-C2: No significant spinal stenosis. C2-C3: No significant spinal stenosis or exit foraminal stenosis. C3-C4: Mild diffuse posterior disc bulging is present, with a small annular tear and central protrusi on. No central stenosis or significant foraminal narrowing. C4-C5: Mild diffuse posterior disc bulging is present without significant central or foraminal stenos is C5-C6: Broad diffuse posterior disc bulge and bony spurring is present, effacing the ventral thecal s ac and abutting the ventral cord with very mild leftward ventral cord flattening, but no abnormal int rinsic cord signal. This finding is best shown on axial T2 series 6, image 19/31. Mild central one[place] l narrowing. Elsewhere at C5-6, no foraminal narrowing is present. C6-C7: Mild diffuse posterior disc bulging partially effaces the ventral thecal sac without abutting the cord or causing cord flattening. Borderline central canal narrowing. No foraminal narrowing. C7-T1: No significant spinal stenosis or exit foraminal stenosis. UPPER THORACIC: Incompletely imaged. No significant spinal stenosis or exit foraminal stenosis. OTHER: No other significant finding. IMPRESSION: Degenerative changes most pronounced at C5-6 TECHNICAL DOCUMENTATION: JOB ID: [id number]- All Rights Reserved Reading location - IP/workstation name: [email or web address]
== END ==
LOC: RAD 15:47
PROVIDERS: ATTEND Neurological Surgery
DX: M50.123 Cervical disc disorder at C6-C7 level with radiculopathy (principal)
CPT/HCPCS: 72141

== ENCOUNTER 2019-02-17 16:54 | Emergency (ER) | payer BC ==
--- NOTE | 2019-02-17 18:10 | ER Document Report ---
ED Medical Screen (RME) - General Chief Complaint: Low Blood Sugar Stated Complaint: BLOOD SUGAR PROBLEMS Time Seen by Provider: 02/17/19 18:00 Primary Care Provider: KRISTI KEEN MD [Primary Care Provider] - Follow up as needed Notes: 43-year-old female with past medical history of thyroidectomy, asthma presents with complaints of "extreme fatigue" and hypoglycemia. Patient states that her blood sugar plummets every 3 hours if she does not eat and they are working her up for "brittle diabetes". No nausea or vomiting, no acute dizziness, does complain of fatigue and weakness. No abdominal pain. No urinary symptoms. Exam: Well-appearing no acute stress, regular cardiac rate and rhythm I have greeted and performed a rapid initial assessment of this patient. A comprehensive ED assessment and evaluation of the patient, analysis of test results and completion of medical decision making process will be conducted by an additional ED providers. TRAVEL OUTSIDE OF THE [place] IN LAST 30 DAYS: No - Related Data Allergies/Adverse Reactions: Cephalosporins Allergy (Severe, Verified 12/13/18 10:00) Throat itching and swelling ciprofloxacin [From Cipro] Allergy (Severe, Verified 12/13/18 10:00) Blistering in mouth and throat ethyl alcohol Allergy (Severe, Verified 12/13/18 10:00) Shortness of Breath, cough, difficulty breathing fluticasone [From Flonase] Allergy (Severe, Verified 12/13/18 10:00) Migraine, nose bleed latex Allergy (Severe, Verified 12/13/18 10:00) RASH Penicillins Allergy (Severe, Verified 12/13/18 10:00) Throat swelling, difficulty breathing cephalexin [From Keflex] Allergy (Verified 12/13/18 10:00) Throat swelling, difficulty breathing dexlansoprazole [From Dexilant] Allergy (Verified 12/13/18 10:00) erythromycin base [From Erythrocin] Allergy (Verified 12/13/18 10:00) Hives fluoxetine [From Prozac] Allergy (Verified 12/13/18 10:00) metronidazole [From Flagyl] Allergy (Verified 12/13/18 10:00) Swelling of Throat prednisone Allergy (Verified 12/13/18 10:00) Tachycardia sertraline [From Zoloft] Allergy (Verified 12/13/18 10:00) aspirin Adverse Reaction (Verified 12/06/18 12:14) N&V Sulfa (Sulfonamide Antibiotics) Adverse Reaction (Verified 12/13/18 10:00) See Comments IV dye Allergy (Uncoded 12/13/18 10:00) arrhythmia Past Medical History - Social History Family history: None - Past Medical History Cardiac Medical History: Reports: Hx Heart Attack - 2009, no stent, Hx Hypertension - HX OF, no meds Denies: Hx Coronary Artery Disease Pulmonary Medical History: Reports: Hx Asthma, Hx COPD - INHALERS Denies: Hx Bronchitis, Hx Pneumonia Neurological Medical History: Reports: Hx Migraine, Hx Seizures - NO MEDS - LAST 2013 - NOT CURRENT. Denies: Hx Cerebrovascular Accident Endocrine Medical History: Reports: Hx Diabetes Mellitus Type 2 Renal/ Medical History: Denies: Hx Peritoneal Dialysis Musculoskeltal Medical History: Denies Hx Arthritis Past Surgical History: Reports: Hx Abdominal Surgery, Hx Cholecystectomy, Hx Gynecologic Surgery, Hx Hysterectomy, Hx Nose Surgery, Hx Thyroid Surgery, Hx Tubal Ligation - Immunizations Immunizations up to date: Yes Hx Diphtheria, Pertussis, Tetanus Vaccination: No Physical Exam - Vital signs Vitals: Temp Pulse Resp BP Pulse Ox 99.0 F 84 18 141/93 H 98 02/17/19 17:17 02/17/19 17:17 02/17/19 17:17 02/17/19 17:17 02/17/19 17:17 Course - Vital Signs Vital signs: Temp Pulse Resp BP Pulse Ox 99.0 F 84 18 141/93 H 98 02/17/19 17:17 02/17/19 17:17 02/17/19 17:17 02/17/19 17:17 02/17/19 17:17 Doctor's Discharge - Discharge Referrals: KRISTI KEEN MD [Primary Care Provider] - Follow up as needed
[2019-02-17 22:17] LABS: ANION GAP 9 (5-19); BLOOD UREA NITROGEN 10 mg/dL (7-20); CARBON DIOXIDE 28 mmol/L (22-30); CHLORIDE 104 mmol/L (98-107); GLUCOSE 86 mg/dL (75-110); POTASSIUM 4.5 mmol/L (3.6-5.0)
[2019-02-17 22:42] LABS: ABSOLUTE BASOPHILS # (AUTO) 0.1 10^3/uL (0.0-0.2); ABSOLUTE EOSINOPHILS # (AUTO) 0.2 10^3/uL (0.0-0.6); ABSOLUTE LYMPHOCYTES (AUTO) 2.2 10^3/uL (0.5-4.7); ABSOLUTE MONOCYTES (AUTO) 0.3 10^3/uL (0.1-1.4); ABSOLUTE NEUT (AUTO) 3.4 10^3/uL (1.7-8.2); BASOPHILS % (AUTO) 1.2 % (0-2); EOSINOPHILS % (AUTO) 2.8 % (0-6); HEMATOCRIT 41.6 % (36.0-47.0); HEMOGLOBIN 13.9 g/dL (12.0-15.5); LYMPHOCYTES % (AUTO) 35.4 % (13-45); MEAN CORPUSCULAR HEMOGLOBIN 30.3 pg (27.0-33.4); MEAN CORPUSCULAR HGB CONC 33.5 g/dL (32.0-36.0); MEAN CORPUSCULAR VOLUME 91 fl (80-97); MONOCYTES % (AUTO) 5.5 % (3-13); PLATELET COUNT 217 10^3/uL (150-450); RED BLOOD COUNT 4.59 10^6/uL (3.72-5.28); RED CELL DISTRIBUTION WIDTH 14.1 % (11.5-14.0); SEGMENTED NEUTROPHILS % (AUTO) 55.1 % (42-78); TOTAL CELLS COUNTED % (AUTO) 100 %; WHITE BLOOD COUNT 6.2 10^3/uL (4.0-10.5)
--- NOTE | 2019-02-17 22:42 | ER Document Report ---
ED General - General Chief Complaint: Low Blood Sugar Stated Complaint: BLOOD SUGAR PROBLEMS Time Seen by Provider: 02/17/19 18:00 Primary Care Provider: KRISTI KEEN MD [Primary Care Provider] - Follow up as needed TRAVEL OUTSIDE OF THE [place] IN LAST 30 DAYS: No - Related Data Allergies/Adverse Reactions: Cephalosporins Allergy (Severe, Verified 12/13/18 10:00) Throat itching and swelling ciprofloxacin [From Cipro] Allergy (Severe, Verified 12/13/18 10:00) Blistering in mouth and throat ethyl alcohol Allergy (Severe, Verified 12/13/18 10:00) Shortness of Breath, cough, difficulty breathing fluticasone [From Flonase] Allergy (Severe, Verified 12/13/18 10:00) Migraine, nose bleed latex Allergy (Severe, Verified 12/13/18 10:00) RASH Penicillins Allergy (Severe, Verified 12/13/18 10:00) Throat swelling, difficulty breathing cephalexin [From Keflex] Allergy (Verified 12/13/18 10:00) Throat swelling, difficulty breathing dexlansoprazole [From Dexilant] Allergy (Verified 12/13/18 10:00) erythromycin base [From Erythrocin] Allergy (Verified 12/13/18 10:00) Hives fluoxetine [From Prozac] Allergy (Verified 12/13/18 10:00) metronidazole [From Flagyl] Allergy (Verified 12/13/18 10:00) Swelling of Throat prednisone Allergy (Verified 12/13/18 10:00) Tachycardia sertraline [From Zoloft] Allergy (Verified 12/13/18 10:00) aspirin Adverse Reaction (Verified 12/06/18 12:14) N&V Sulfa (Sulfonamide Antibiotics) Adverse Reaction (Verified 12/13/18 10:00) See Comments IV dye Allergy (Uncoded 12/13/18 10:00) arrhythmia Past Medical History - Social History Smoking Status: Never Smoker Family History: Reviewed & Not Pertinent Patient has suicidal ideation: No Patient has homicidal ideation: No - Past Medical History Cardiac Medical History: Reports: Hx Heart Attack - 2010, no stent, Hx Hypertension - HX OF, no meds Denies: Hx Coronary Artery Disease Pulmonary Medical History: Reports: Hx Asthma, Hx COPD - INHALERS Denies: Hx Bronchitis, Hx Pneumonia Neurological Medical History: Reports: Hx Migraine, Hx Seizures - NO MEDS - LAST 2013 - NOT CURRENT. Denies: Hx Cerebrovascular Accident Endocrine Medical History: Reports: Hx Diabetes Mellitus Type 2 Renal/ Medical History: Denies: Hx Peritoneal Dialysis Musculoskeletal Medical History: Denies Hx Arthritis Past Surgical History: Reports: Hx Abdominal Surgery, Hx Cholecystectomy, Hx Gynecologic Surgery, Hx Hysterectomy, Hx Nose Surgery, Hx Thyroid Surgery, Hx T ubal Ligation - Immunizations Immunizations up to date: Yes Hx Diphtheria, Pertussis, Tetanus Vaccination: No Physical Exam - Vital signs Vitals: Temp Pulse Resp BP Pulse Ox 99.0 F 84 18 141/93 H 98 02/17/19 17:17 02/17/19 17:17 02/17/19 17:17 02/17/19 17:17 02/17/19 17:17 - Notes Notes: Patient presents emergency department complaining of episodes of hypoglycemia has been going on for the past 2 weeks. She is been eating every couple hours but she misses a meal her sugar will drop. She does get symptomatic with gets lightheaded and diaphoretic. Is resolved when she eats something. She is her family doctor about 2 weeks ago laboratory studies were unremarkable and referred to an hematology nurse educator. She does have a history of diabetes in the past but lost weight has been off her medicines for a while. Patient also reports extreme fatigue today. She has been sleeping well denies any headaches neck pain chest pain shortness of breath nausea vomiting or abdominal pain no diarrhea. Reports that she had a thyroid functions tested January 31 at that time she was having palpitations. TSH was elevated I recommended changing her medicines but she did not. Her numbers were repeated again February 04 and they were back to normal as reports that her calcium levels been normal recently parathyroid hormone has chronically been low and unchanged Past medical history is hypertension seizure disorder but no seizures in years no medications. She reports she had an [facility] in 2009 was treated only with nitroglycerin discharged home catheterization also has a history of thyroidectomy Social history does not smoke or drink at all. She is on her period now Review of systems pertinent positives and negatives in HPI otherwise all the systems were reviewed and acutely negative PHYSICIAN EXAM -vital signs are noted triage note and note from triage reviewed GENERAL: Well-appearing, well-nourished and in _no acute distress HEAD: Atraumatic, normocephalic. EYES: Pupils equal round and reactive to light, extraocular movements intact, sclera anicteric, conjunctiva are normal. ENT: nares patent, oropharynx clear without exudates. Moist mucous membranes. NECK: supple without lymphadenopathy she has a minimal swelling the anterior neck which is chronic for her LUNGS: Breath sounds clear to auscultation bilaterally and equal. No wheezes rales or rhonchi. HEART: Regular rate and rhythm without murmurs ABDOMEN: Soft, nontender, normoactive bowel sounds. EXTREMITIES: No deformity, no edema. NEUROLOGICAL: Alert and oriented x4. Cranial nerves he has symmetrical smile facies and shoulder shrug. His motor strength is 5/5 bilaterally in the upper and lower extremities. Toes downgoing. Sensation is intact to light touch is a negative Romberg and normal gait PSYCH: Normal mood, normal affect. SKIN: Warm, Dry, normal turgor, no rashes or lesions noted. BACK-nontender in the midline Course - Re-evaluation Re-evalutation: 02/18/19 00:10 ED patient remained stable was given a snack thyroid studies were normal Medical decision making patient presents with episodes of hypoglycemia. Etiology is unclear at this time. There is no further work-up indicated at this time. I think she be discharged home strongly recommended that she drink heavy meals every 3 hours with large carbohydrates continue to follow her sugar contact her doctor on Wednesday regarding endocrine follow-up At this time there is no indication for admission. I have discussed the findings with patient/family with return precautions and follow-up recommendations. Verbal discharge instructions given at the bedside and opportunity for questions given. Medication warnings were given if indicated. Patient is in agreement with this plan and has verbalized understanding of return precautions and the need for primary care follow-up as directed.. - Vital Signs Vital signs: Temp Pulse Resp BP Pulse Ox 99.0 F 84 18 141/93 H 98 02/17/19 17:17 02/17/19 17:17 02/17/19 17:17 02/17/19 17:17 02/17/19 17:17 - Laboratory Result Diagrams: 02/17/19 18:53 02/17/19 18:53 Laboratory results interpreted by me: 02/17/19 02/17/19 18:53 18:53 RDW 14.1 H Free T3 pg/mL 2.18 L Discharge - Discharge Clinical Impression: Hypoglycemia Condition: Good Disposition: HOME, SELF-CARE Additional Instructions: Hypoglycemia You have suffered an episode of hypoglycemia (low blood sugar). Typical symptoms of hypoglycemia are shaking, sweating, headache, and confusion. When severe, unconsciousness or seizure may occur. Hypoglycemia occurs when a person taking insulin or diabetes pills has a change in the amount of blood sugar available -- due to exercise, decreased food intake, or alcohol. Should you feel symptoms of hypoglycemia again, immediately take some form of sugar such as sweetened juice. As the reaction subsides, eat a complex carbohydrate such as bread. If possible, check your blood sugar using a chemical strip. If episodes are occurring without obvious explanation, contact your physic marylin for further evaluation. You to eat large meals every 3 hours with carbohydrates Continue to follow your sugar closely Follow-up with your family doctor on Wednesday Referrals: KRISTI KEEN MD [Primary Care Provider] - Follow up as needed
[2019-02-17 23:04] LABS: FREE T3 2.18 pg/mL (2.77-5.27)
[2019-02-17 23:18] LABS: THYROID STIMULATING HORMONE 3.1 uIU/mL (0.47-4.68)
[2019-02-18 00:57] VITALS: BP 135/84
--- NOTE | 2019-02-18 08:41 | EKG REPORT ---
SEVERITY:- ABNORMAL ECG - SINUS RHYTHM FIRST DEGREE AV BLOCK BORDERLINE T ABNORMALITIES, ANT-LAT LEADS : Confirmed by: Sergio Mueller MD 18-Feb-2019 08:40:24
== END 2019-02-18 00:55 | disposition home or self-care (01) ==
LOC: ER 16:54
DX: E11.649 Type 2 diabetes mellitus with hypoglycemia without coma (principal); R53.83 Other fatigue; I25.2 Old myocardial infarction; I10 Essential (primary) hypertension; Z90.49 Acquired absence of other specified parts of digestive tract; Z90.710 Acquired absence of both cervix and uterus; Z88.6 Allergy status to analgesic agent; Z88.2 Allergy status to sulfonamides; Z91.041 Radiographic dye allergy status; Z88.3 Allergy status to other anti-infective agents
CPT/HCPCS: 36415; 80048; 82962; 84443; 84481; 85025; 93005; 93010; 99285

== ENCOUNTER 2019-02-22 19:14 | Emergency (ER) | payer BC ==
[2019-02-22 20:02] VITALS: BP 145/96
--- NOTE | 2019-02-22 20:02 | ER Document Report ---
ED Medical Screen (RME) - General Stated Complaint: FAST HEART PALPITATIONS Time Seen by Provider: 02/22/19 19:56 Primary Care Provider: KRISTI KEEN MD [Primary Care Provider] - Follow up as needed Mode of Arrival: Ambulatory Information source: Patient Notes: This patient presents emergency department with history of hypothyroidism with reports of palpitations with nausea. denies chest pain. She reports Dr. Downs told her anytime she had nausea with the palpitations she was come the emergency department. She [facility] at this time. Reports she just had her thyroid levels checked this past Wednesday. I have greeted and performed a rapid initial assessment of this patient. A comprehensive ED assessment and evaluation of the patient, analysis of test results and completion of the medical decision making process will be conducted by additional ED providers. TRAVEL OUTSIDE OF THE [place] IN LAST 30 DAYS: No - Related Data Allergies/Adverse Reactions: Cephalosporins Allergy (Severe, Verified 12/13/18 10:00) Throat itching and swelling ciprofloxacin [From Cipro] Allergy (Severe, Verified 12/13/18 10:00) Blistering in mouth and throat ethyl alcohol Allergy (Severe, Verified 12/13/18 10:00) Shortness of Breath, cough, difficulty breathing fluticasone [From Flonase] Allergy (Severe, Verified 12/13/18 10:00) Migraine, nose bleed latex Allergy (Severe, Verified 12/13/18 10:00) RASH Penicillins Allergy (Severe, Verified 12/13/18 10:00) Throat swelling, difficulty breathing cephalexin [From Keflex] Allergy (Verified 12/13/18 10:00) Throat swelling, difficulty breathing dexlansoprazole [From Dexilant] Allergy (Verified 12/13/18 10:00) erythromycin base [From Erythrocin] Allergy (Verified 12/13/18 10:00) Hives fluoxetine [From Prozac] Allergy (Verified 12/13/18 10:00) metronidazole [From Flagyl] Allergy (Verified 12/13/18 10:00) Swelling of Throat prednisone Allergy (Verified 12/13/18 10:00) Tachycardia sertraline [From Zoloft] Allergy (Verified 12/13/18 10:00) aspirin Adverse Reaction (Verified 12/06/18 12:14) N&V Sulfa (Sulfonamide Antibiotics) Adverse Reaction (Verified 12/13/18 10:00) See Comments IV dye Allergy (Uncoded 12/13/18 10:00) arrhythmia Past Medical History - Social History Family history: None - Past Medical History Cardiac Medical History: Reports: Hx Heart Attack - 2010, no stent, Hx Hypertension - HX OF, no meds Denies: Hx Coronary Artery Disease Pulmonary Medical History: Reports: Hx Asthma, Hx COPD - INHALERS Denies: Hx Bronchitis, Hx Pneumonia Neurological Medical History: Reports: Hx Migraine, Hx Seizures - NO MEDS - LAST 2013 - NOT CURRENT. Denies: Hx Cerebrovascular Accident Endocrine Medical History: Reports: Hx Diabetes Mellitus Type 2 Renal/ Medical History: Denies: Hx Peritoneal Dialysis Musculoskeltal Medical History: Denies Hx Arthritis Past Surgical History: Reports: Hx Abdominal Surgery, Hx Cholecystectomy, Hx Gynecologic Surgery, Hx Hysterectomy, Hx Nose Surgery, Hx Thyroid Surgery, Hx Tubal Ligation - Immunizations Immunizations up to date: Yes Hx Diphtheria, Pertussis, Tetanus Vaccination: No Physical Exam - Vital signs Vitals: Temp Pulse Resp BP Pulse Ox 98.8 F 100 16 145/96 H 98 02/22/19 19:36 02/22/19 19:36 02/22/19 19:36 02/22/19 19:36 02/22/19 19:36 Course - Vital Signs Vital signs: Temp Pulse Resp BP Pulse Ox 98.8 F 100 16 145/96 H 98 02/22/19 19:36 02/22/19 19:36 02/22/19 19:36 02/22/19 19:36 02/22/19 19:36 Doctor's Discharge - Discharge Referrals: KRISTI KEEN MD [Primary Care Provider] - Follow up as needed
--- NOTE | 2019-02-22 21:07 | RADIOLOGY REPORT (SQ) ---
EXAM DESCRIPTION: Chest x-ray PA lateral CLINICAL HISTORY: 43 years Female, cp COMPARISON: 11/19/2018. FINDINGS: Cardiomediastinal silhouette is not enlarged. No suspicious lung pleural bone abnormalities. IMPRESSION: Negative chest x-ray.
[2019-02-22 21:09] LABS: ABSOLUTE BASOPHILS # (AUTO) 0.1 10^3/uL (0.0-0.2); ABSOLUTE EOSINOPHILS # (AUTO) 0.3 10^3/uL (0.0-0.6); ABSOLUTE LYMPHOCYTES (AUTO) 2.6 10^3/uL (0.5-4.7); ABSOLUTE MONOCYTES (AUTO) 0.5 10^3/uL (0.1-1.4); ABSOLUTE NEUT (AUTO) 4.7 10^3/uL (1.7-8.2); BASOPHILS % (AUTO) 0.9 % (0-2); EOSINOPHILS % (AUTO) 3.3 % (0-6); HEMATOCRIT 41.5 % (36.0-47.0); HEMOGLOBIN 14.1 g/dL (12.0-15.5); MEAN CORPUSCULAR HEMOGLOBIN 30.6 pg (27.0-33.4); MEAN CORPUSCULAR HGB CONC 33.9 g/dL (32.0-36.0); MEAN CORPUSCULAR VOLUME 90 fl (80-97); MONOCYTES % (AUTO) 6.6 % (3-13); PLATELET COUNT 209 10^3/uL (150-450); SEGMENTED NEUTROPHILS % (AUTO) 57.2 % (42-78); TOTAL CELLS COUNTED % (AUTO) 100 %; WHITE BLOOD COUNT 8.3 10^3/uL (4.0-10.5)
[2019-02-22 21:16] LABS: ALBUMIN 4.2 g/dL (3.5-5.0); ALKALINE PHOSPHATASE 81 U/L (38-126); ANION GAP 10 (5-19); ASPARTATE AMINO TRANSFERASE 23 U/L (14-36); BILIRUBIN,DIRECT 0.3 mg/dL (0.0-0.4); BILIRUBIN,TOTAL 0.3 mg/dL (0.2-1.3); BLOOD UREA NITROGEN 8 mg/dL (7-20); CALCIUM 9.6 mg/dL (8.4-10.2); CARBON DIOXIDE 25 mmol/L (22-30); CHLORIDE 104 mmol/L (98-107); GLUCOSE 93 mg/dL (75-110); POTASSIUM 3.9 mmol/L (3.6-5.0); TOTAL PROTEIN 7.2 g/dL (6.3-8.2)
--- NOTE | 2019-02-23 22:02 | EKG REPORT ---
SEVERITY:- ABNORMAL ECG - SINUS RHYTHM FIRST DEGREE AV BLOCK : Confirmed by: Tomasz Mir 23-Feb-2019 22:01:48
== END 2019-02-22 23:58 | disposition left against medical advice (07) ==
LOC: ER 19:14
DX: R07.0 Pain in throat (principal); Z77.120 Contact with and (suspected) exposure to mold (toxic); R00.2 Palpitations; R05 Cough; F17.200 Nicotine dependence, unspecified, uncomplicated
CPT/HCPCS: 36415; 71046; 80053; 84484; 85025; 93005; 93010; 99281

== ENCOUNTER 2019-02-24 22:54 | Emergency (ER) | payer BC ==
[2019-02-25] MEDS ORDERED: DIPHENHYDRAMINE HCL 25 MG CAPSULE PO ONE (02:35)
[2019-02-25 02:36] VITALS: BP 116/75
[2019-02-25] MEDS ORDERED: FAMOTIDINE 20 MG TABLET PO ONE (02:36)
--- NOTE | 2019-02-25 02:41 | ER Document Report ---
HPI - HPI Time Seen by Provider: 02/25/19 02:17 Pain Level: 2 Context: Patient is a 43-year-old female that comes to the emergency department for chief complaint of concerns about symptoms and reaction is that she might be having secondary to consuming bread that she discovered had mold. She states that she has eaten several sandwiches with the mold since yesterday and did not realize until the last time she had around 5 PM today. She denies vomiting, diarrhea, shortness of breath. She states she had an itching tingling sensation in her throat earlier, became concerned that she was having allergic reaction and came in for evaluation. She does not take Benadryl or any other medications for this. - CONSTITUTIONAL Constitutional: DENIES: Fever, Chills - EENT EENT: REPORTS: Sore Throat - RESPIRATORY Respiratory: REPORTS: Coughing - REPRODUCTIVE Reproductive: DENIES: : Past Medical History - General Information source: Patient - Social History Smoking Status: Current Every Day Smoker Frequency of alcohol use: None Drug Abuse: None Lives with: Family Family History: Reviewed & Not Pertinent Patient has suicidal ideation: No Patient has homicidal ideation: No - Past Medical History Cardiac Medical History: Reports: Hx Heart Attack - 2009, no stent, Hx Hypertension - HX OF, no meds Denies: Hx Coronary Artery Disease Pulmonary Medical History: Reports: Hx Asthma, Hx COPD - INHALERS Denies: Hx Bronchitis, Hx Pneumonia Neurological Medical History: Reports: Hx Migraine, Hx Seizures - NO MEDS - LAST 2013 - NOT CURRENT. Denies: Hx Cerebrovascular Accident Endocrine Medical History: Reports: Hx Diabetes Mellitus Type 2 Renal/ Medical History: Denies: Hx Peritoneal Dialysis Musculoskeletal Medical History: Denies Hx Arthritis Past Surgical History: Reports: Hx Abdominal Surgery, Hx Cholecystectomy, Hx Gynecologic Surgery, Hx Hysterectomy, Hx Nose Surgery, Hx Thyroid Surgery, Hx Tubal Ligation - Immunizations Immunizations up to date: Yes Hx Diphtheria, Pertussis, Tetanus Vaccination: No Vertical Provider Document - CONSTITUTIONAL General Appearance: WD/WN, No Apparent Distress - INFECTION CONTROL TRAVEL OUTSIDE OF THE [place] IN LAST 30 DAYS: No - HEENT HEENT: Atraumatic, Normal ENT Exam - Patent airway, normal oropharyngeal exam without any erythema or swelling, patient does not speak with a hoarse voice. Normal nose, eyes, ears, Normocephalic - NECK Neck: Normal Inspection - RESPIRATORY Respiratory: Breath Sounds Normal, No Respiratory Distress. negative: Wheezing - CARDIOVASCULAR Cardiovascular: Regular Rate, Regular Rhythm - GI/ABDOMEN Gastrointestinal: Abdomen Soft, Abdomen Non-Tender. negative: Abdomen Tender - BACK Back: Normal Inspection - MUSCULOSKELETAL/EXTREMETIES Musculoskeletal/Extremeties: MAEW, FROM, Non-Tender - NEURO Level of Consciousness: Awake, Alert, Appropriate Motor/Sensory: No Motor Deficit, No Sensory Deficit - DERM Integumentary: Warm, Dry, No Rash Course - Re-evaluation Re-evalutation: Patient is well-known to me. Her physical exam is completely unremarkable with clear airway, normal oropharyngeal exam, soft abdomen, clear lungs, unremarkable vital signs. She is extremely talkative. She was very anxious about the mold she consumed but she has not had any vomiting, difficulty breathing, and I do not see any signs of allergic reaction. Because of her throat sensations she was offered IV Solu-Medrol, IV Benadryl, IV Pepcid but she declined. She states she will take Pepcid, Benadryl, and prescriptions, she is requesting discharge. I did discuss medications at home, follow-up, and I did discuss return precautions for any signs of a concerning allergic reaction. Patient states understanding and agreement. Well-appearing and stable at time of discharge. - Vital Signs Vital signs: Temp Pulse Resp BP Pulse Ox 98.1 F 78 20 116/75 100 02/25/19 02:35 02/25/19 02:35 02/25/19 02:35 02/25/19 02:35 02/25/19 02:35 Discharge - Discharge Clinical Impression: Throat symptom, Mold exposure Condition: Stable Disposition: HOME, SELF-CARE Additional Instructions: Your evaluation is reassuring, no signs of anaphylaxis are seen. Your symptoms also appear to be resolving. I do recommend the prescribed cetirizine and famotidine daily for 1 week. Follow-up with primary care for additional management. Return for any concerning symptoms including developing rash, swelling of the throat, difficulty breathing, vomiting, or any other concerning symptoms. Prescriptions: Cetirizine HCl [All Day Allergy] 10 mg PO DAILY #20 tablet Famotidine [Pepcid 20 mg Tablet] 20 mg PO DAILY #12 tablet Referrals: KRISTI KEEN MD [Primary Care Provider] - Follow up as needed
== END 2019-02-25 03:25 | disposition home or self-care (01) ==
LOC: ER 22:54
DX: Z77.120 Contact with and (suspected) exposure to mold (toxic) (principal); J02.9 Acute pharyngitis, unspecified; R09.89 Other specified symptoms and signs involving the circulatory and respiratory systems; R05 Cough; F17.200 Nicotine dependence, unspecified, uncomplicated; I10 Essential (primary) hypertension; J44.9 Chronic obstructive pulmonary disease, unspecified; E11.9 Type 2 diabetes mellitus without complications
CPT/HCPCS: 99283

== ENCOUNTER 2019-03-17 21:52 | Emergency (ER) | payer BC ==
--- NOTE | 2019-03-17 22:56 | ER Document Report ---
ED Medical Screen (RME) - General Chief Complaint: Chest Pain Stated Complaint: CHEST PAINS AND BLOOD PRESSURE ISSUES Time Seen by Provider: 03/17/19 22:31 Primary Care Provider: KRISTI KEEN MD [Primary Care Provider] - Follow up as needed Notes: Patient is a 43-year-old female who presents emergency department with a chief complaint of chest pain. Patient reports around 7:30 PM tonight she was at rest when she developed sharp intermittent episodes of right-sided chest pain. Patient reports that this will also intermittently develop on the left side. Patient reports afterwards she got some pressure and palpitations. Patient reports she does have a history of RI back in 2009 without stent placement. Patient reports he is also being worked up for liver disease and has increasing right upper quadrant and right rib pain. Patient denies fever. TRAVEL OUTSIDE OF THE [place] IN LAST 30 DAYS: No - Related Data Allergies/Adverse Reactions: Cephalosporins Allergy (Severe, Verified 12/13/18 10:00) Throat itching and swelling ciprofloxacin [From Cipro] Allergy (Severe, Verified 12/13/18 10:00) Blistering in mouth and throat ethyl alcohol Allergy (Severe, Verified 12/13/18 10:00) Shortness of Breath, cough, difficulty breathing fluticasone [From Flonase] Allergy (Severe, Verified 12/13/18 10:00) Migraine, nose bleed latex Allergy (Severe, Verified 12/13/18 10:00) RASH Penicillins Allergy (Severe, Verified 12/13/18 10:00) Throat swelling, difficulty breathing cephalexin [From Keflex] Allergy (Verified 12/13/18 10:00) Throat swelling, difficulty breathing dexlansoprazole [From Dexilant] Allergy (Verified 12/13/18 10:00) erythromycin base [From Erythrocin] Allergy (Verified 12/13/18 10:00) Hives fluoxetine [From Prozac] Allergy (Verified 12/13/18 10:00) metronidazole [From Flagyl] Allergy (Verified 12/13/18 10:00) Swelling of Throat prednisone Allergy (Verified 12/13/18 10:00) Tachycardia sertraline [From Zoloft] Allergy (Verified 12/13/18 10:00) aspirin Adverse Reaction (Verified 12/06/18 12:14) N&V Sulfa (Sulfonamide Antibiotics) Adverse Reaction (Verified 12/13/18 10:00) See Comments IV dye Allergy (Uncoded 12/13/18 10:00) arrhythmia Past Medical History - Social History Frequency of alcohol use: None Drug Abuse: None Family history: None - Past Medical History Cardiac Medical History: Reports: Hx Heart Attack - 2010, no stent, Hx Hypertension - HX OF, no meds Denies: Hx Coronary Artery Disease Pulmonary Medical History: Reports: Hx Asthma, Hx COPD - INHALERS Denies: Hx Bronchitis, Hx Pneumonia Neurological Medical History: Reports: Hx Migraine, Hx Seizures - NO MEDS - LAST 2013 - NOT CURRENT. Denies: Hx Cerebrovascular Accident Endocrine Medical History: Reports: Hx Diabetes Mellitus Type 2 Renal/ Medical History: Denies: Hx Peritoneal Dialysis Musculoskeltal Medical History: Denies Hx Arthritis Past Surgical History: Reports: Hx Abdominal Surgery, Hx Cholecystectomy, Hx Gynecologic Surgery, Hx Hysterectomy, Hx Nose Surgery, Hx Thyroid Surgery, Hx Tubal Ligation - Immunizations Immunizations up to date: Yes Hx Diphtheria, Pertussis, Tetanus Vaccination: No Physical Exam - Vital signs Vitals: Temp Pulse Resp BP Pulse Ox 97.9 F 80 18 122/86 H 100 03/17/19 22:34 03/17/19 22:34 03/17/19 22:34 03/17/19 22:34 03/17/19 22:34 - Respiratory Respiratory status: No respiratory distress Breath sounds: Normal Chest palpation: Normal Course - Re-evaluation Re-evalutation: 03/17/19 22:56 I have greeted and performed a rapid initial assessment of this patient. A com prehensive ED assessment and evaluation of the patient, analysis of test results and completion of the medical decision making process will be conducted by additional ED providers. - Vital Signs Vital signs: Temp Pulse Resp BP Pulse Ox 97.9 F 80 18 122/86 H 100 03/17/19 22:34 03/17/19 22:34 03/17/19 22:34 03/17/19 22:34 03/17/19 22:34 Doctor's Discharge - Discharge Referrals: KRISTI KEEN MD [Primary Care Provider] - Follow up as needed
--- NOTE | 2019-03-17 23:48 | RADIOLOGY REPORT (SQ) ---
US ABDOMEN DOPPLER EXAM DATE: 03/17/2019 10:54 PM [employer]LECT[employer]ICAL [employer] HELPER HISTORY: Right upper quadrant pain. COMPARISON: None. TECHNIQUE: Grayscale and color Doppler imaging of the abdomen was performed. FINDINGS: The liver has normal echotexture without focal lesion identified. The main portal vein has normal hepatopetal flow. There has been a prior cholecystectomy. The common bile duct is 2 mm in diameter. The pancreas is unremarkable. The spleen is normal in size. No hydronephrosis or shadowing renal stones are identified. The right kidney measures 11.2 cm and the left kidney measures 12.4 cm in length. The visualized portions of the IVC and aorta are patent. IMPRESSION: No acute findings.
--- NOTE | 2019-03-18 00:14 | RADIOLOGY REPORT (SQ) ---
EXAM DESCRIPTION: XR CHEST 2 VIEWS COMPLETED DATE/TME: 03/17/2019 22:54 CLINICAL HISTORY: 43 years, Female, chest pain COMPARISON: Prior study from 02/22/2019 NUMBER OF VIEWS: Two TECHNIQUE: Frontal and lateral radiographs were obtained LIMITATIONS: None. FINDINGS: Cardiac and mediastinal contours are stable. Lungs are clear. No pleural effusion or pneumothorax. IMPRESSION: No acute disease. copyright 2010 [employer]- All Rights Reserved
[2019-03-18 00:17] LABS: ABSOLUTE BASOPHILS # (AUTO) 0.1 10^3/uL (0.0-0.2); ABSOLUTE EOSINOPHILS # (AUTO) 0.2 10^3/uL (0.0-0.6); ABSOLUTE LYMPHOCYTES (AUTO) 2.6 10^3/uL (0.5-4.7); ABSOLUTE MONOCYTES (AUTO) 0.5 10^3/uL (0.1-1.4); ABSOLUTE NEUT (AUTO) 3.5 10^3/uL (1.7-8.2); BASOPHILS % (AUTO) 1.1 % (0-2); EOSINOPHILS % (AUTO) 2.8 % (0-6); HEMATOCRIT 39.9 % (36.0-47.0); HEMOGLOBIN 13.6 g/dL (12.0-15.5); LYMPHOCYTES % (AUTO) 38.4 % (13-45); MEAN CORPUSCULAR HEMOGLOBIN 30.4 pg (27.0-33.4); MEAN CORPUSCULAR HGB CONC 34.1 g/dL (32.0-36.0); MEAN CORPUSCULAR VOLUME 89 fl (80-97); MONOCYTES % (AUTO) 7.1 % (3-13); PLATELET COUNT 206 10^3/uL (150-450); RED BLOOD COUNT 4.47 10^6/uL (3.72-5.28); SEGMENTED NEUTROPHILS % (AUTO) 50.6 % (42-78); TOTAL CELLS COUNTED % (AUTO) 100 %; WHITE BLOOD COUNT 6.9 10^3/uL (4.0-10.5)
[2019-03-18 00:35] LABS: ALBUMIN 4.1 g/dL (3.5-5.0); ALKALINE PHOSPHATASE 62 U/L (38-126); ANION GAP 8 (5-19); ASPARTATE AMINO TRANSFERASE 19 U/L (14-36); BILIRUBIN,DIRECT 0.3 mg/dL (0.0-0.4); BILIRUBIN,TOTAL 0.3 mg/dL (0.2-1.3); BLOOD UREA NITROGEN 11 mg/dL (7-20); CALCIUM 9.3 mg/dL (8.4-10.2); CARBON DIOXIDE 27 mmol/L (22-30); CHLORIDE 104 mmol/L (98-107); GLUCOSE 89 mg/dL (75-110); POTASSIUM 4.1 mmol/L (3.6-5.0); TOTAL PROTEIN 7.1 g/dL (6.3-8.2)
--- NOTE | 2019-03-18 06:16 | ER Document Report ---
ED Cardiac - General Chief Complaint: Chest Pain Stated Complaint: CHEST PAINS AND BLOOD PRESSURE ISSUES Time Seen by Provider: 03/17/19 22:31 Primary Care Provider: KRISTI KEEN MD [COMMUNITY BASED STAFF] - Follow up as needed TRAVEL OUTSIDE OF THE [place] IN LAST 30 DAYS: No - Related Data Allergies/Adverse Reactions: Cephalosporins Allergy (Severe, Verified 12/13/18 10:00) Throat itching and swelling ciprofloxacin [From Cipro] Allergy (Severe, Verified 12/13/18 10:00) Blistering in mouth and throat ethyl alcohol Allergy (Severe, Verified 12/13/18 10:00) Shortness of Breath, cough, difficulty breathing fluticasone [From Flonase] Allergy (Severe, Verified 12/13/18 10:00) Migraine, nose bleed latex Allergy (Severe, Verified 12/13/18 10:00) RASH Penicillins Allergy (Severe, Verified 12/13/18 10:00) Throat swelling, difficulty breathing cephalexin [From Keflex] Allergy (Verified 12/13/18 10:00) Throat swelling, difficulty breathing dexlansoprazole [From Dexilant] Allergy (Verified 12/13/18 10:00) erythromycin base [From Erythrocin] Allergy (Verified 12/13/18 10:00) Hives fluoxetine [From Prozac] Allergy (Verified 12/13/18 10:00) metronidazole [From Flagyl] Allergy (Verified 12/13/18 10:00) Swelling of Throat prednisone Allergy (Verified 12/13/18 10:00) Tachycardia sertraline [From Zoloft] Allergy (Verified 12/13/18 10:00) aspirin Adverse Reaction (Verified 12/06/18 12:14) N&V Sulfa (Sulfonamide Antibiotics) Adverse Reaction (Verified 12/13/18 10:00) See Comments IV dye Allergy (Uncoded 12/13/18 10:00) arrhythmia Past Medical History - Social History Smoking Status: Current Every Day Smoker Frequency of alcohol use: None Drug Abuse: None Family History: Reviewed & Not Pertinent Patient has suicidal ideation: No Patient has homicidal ideation: No - Past Medical History Cardiac Medical History: Reports: Hx Heart Attack - 2010, no stent, Hx Hypertension - HX OF, no meds Denies: Hx Coronary Artery Disease Pulmonary Medical History: Reports: Hx Asthma, Hx COPD - INHALERS Denies: Hx Bronchitis, Hx Pneumonia Neurological Medical History: Reports: Hx Migraine, Hx Seizures - NO MEDS - LAST 2013 - NOT CURRENT. Denies: Hx Cerebrovascular Accident Endocrine Medical History: Reports: Hx Diabetes Mellitus Type 2 Renal/ Medical History: Denies: Hx Peritoneal Dialysis Musculoskeletal Medical History: Denies Hx Arthritis Past Surgical History: Reports: Hx Abdominal Surgery, Hx Cholecystectomy, Hx Gynecologic Surgery, Hx Hysterectomy, Hx Nose Surgery, Hx Thyroid Surgery, Hx Tubal Ligation - Immunizations Immunizations up to date: Yes Hx Diphtheria, Pertussis, Tetanus Vaccination: No Physical Exam - Vital signs Vitals: Temp Pulse Resp BP Pulse Ox 97.9 F 80 18 122/86 H 100 03/17/19 22:34 03/17/19 22:34 03/17/19 22:34 03/17/19 22:34 03/17/19 22:34 Course - Vital Signs Vital signs: Temp Pulse Resp BP Pulse Ox 97.8 F 74 18 107/63 98 03/18/19 05:03 03/18/19 05:03 03/18/19 05:03 03/18/19 05:03 03/18/19 05:03 - Laboratory Result Diagrams: 03/18/19 00:03 03/18/19 00:03 Laboratory results interpreted by me: 03/18/19 00:03 RDW 15.0 H Discharge - Discharge Referrals: KRISTI KEEN MD [COMMUNITY BASED STAFF] - Follow up as needed
[2019-03-18 07:41] VITALS: BP 109/72
--- NOTE | 2019-03-18 16:32 | ER Document Report ---
Entered by JIM THOMPSON SCRIBE 03/18/19 0647 Acting as scribe for:ARMANDO PARHAM MD ED General - General Chief Complaint: Chest Pain Stated Complaint: CHEST PAINS AND BLOOD PRESSURE ISSUES Time Seen by Provider: 03/17/19 22:31 Primary Care Provider: KRISTI KEEN MD [COMMUNITY BASED STAFF] - Follow up as needed Information source: Patient Notes: This 43 year old female patient presents to the emergency department today with complaints of right chest pain that comes and goes, she describes a pain that comes and lasts only for a second and then subsides. This chest pain is reproducible with certain movements. TRAVEL OUTSIDE OF THE [place] IN LAST 30 DAYS: No - Related Data Allergies/Adverse Reactions: Cephalosporins Allergy (Severe, Verified 12/13/18 10:00) Throat itching and swelling ciprofloxacin [From Cipro] Allergy (Severe, Verified 12/13/18 10:00) Blistering in mouth and throat ethyl alcohol Allergy (Severe, Verified 12/13/18 10:00) Shortness of Breath, cough, difficulty breathing fluticasone [From Flonase] Allergy (Severe, Verified 12/13/18 10:00) Migraine, nose bleed latex Allergy (Severe, Verified 12/13/18 10:00) RASH Penicillins Allergy (Severe, Verified 12/13/18 10:00) Throat swelling, difficulty breathing cephalexin [From Keflex] Allergy (Verified 12/13/18 10:00) Throat swelling, difficulty breathing dexlansoprazole [From Dexilant] Allergy (Verified 12/13/18 10:00) erythromycin base [From Erythrocin] Allergy (Verified 12/13/18 10:00) Hives fluoxetine [From Prozac] Allergy (Verified 12/13/18 10:00) metronidazole [From Flagyl] Allergy (Verified 12/13/18 10:00) Swelling of Throat prednisone Allergy (Verified 12/13/18 10:00) Tachycardia sertraline [From Zoloft] Allergy (Verified 12/13/18 10:00) aspirin Adverse Reaction (Verified 12/06/18 12:14) N&V Sulfa (Sulfonamide Antibiotics) Adverse Reaction (Verified 12/13/18 10:00) See Comments IV dye Allergy (Uncoded 12/13/18 10:00) arrhythmia Past Medical History - General Information source: Patient - Social History Smoking Status: Current Every Day Smoker Cigarette use (# per day): Yes Frequency of alcohol use: None Drug Abuse: None Family History: Reviewed & Not Pertinent Patient has suicidal ideation: No Patient has homicidal ideation: No - Past Medical History Cardiac Medical History: Reports: Hx Heart Attack - 2010, no stent, Hx Hypertension - HX OF, no meds Pulmonary Medical History: Reports: Hx Asthma, Hx COPD - INHALERS Neurological Medical History: Reports: Hx Migraine, Hx Seizures - NO MEDS - LAST 2013 - NOT CURRENT Endocrine Medical History: Reports: Hx Diabetes Mellitus Type 2 Past Surgical History: Reports: Hx Abdominal Surgery, Hx Cholecystectomy, Hx Gynecologic Surgery, Hx Hysterectomy, Hx Nose Surgery, Hx Thyroid Surgery, Hx Tubal Ligation - Immunizations Immunizations up to date: Yes Hx Diphtheria, Pertussis, Tetanus Vaccination: No Review of Systems - Review of Systems Constitutional: See HPI, Weight loss EENT: No symptoms reported Cardiovascular: See HPI, Chest pain Respiratory: No symptoms reported Gastrointestinal: No symptoms reported Genitourinary: No symptoms reported Female Genitourinary: No symptoms reported Musculoskeletal: See HPI, Ankle swelling Skin: No symptoms reported Hematologic/Lymphatic: No symptoms reported Neurological/Psychological: No symptoms reported -: Yes All other systems reviewed and negative Physical Exam - Vital signs Vitals: Temp Pulse Resp BP Pulse Ox 97.9 F 80 18 122/86 H 100 03/17/19 22:34 03/17/19 22:34 03/17/19 22:34 03/17/19 22:34 03/17/19 22:34 - General General appearance: Appears well, Alert - HEENT Head: Normocephalic, Atraumatic Eyes: Normal Pupils: PERRL Sinus: Normal - Respiratory Respiratory status: No respiratory distress Chest status: Other - pain with palpation of the chest wall, reproducible. Breath sounds: Normal - Cardiovascular Rhythm: Regular Heart sounds: Normal auscultation Murmur: No - Abdominal Inspection: Normal - Extremities General upper extremity: Normal inspection. No: Edema General lower extremity: Normal inspection. No: Edema - Neurological Neuro grossly intact: Yes Cognition: Normal Orientation: AAOx4 Speech: Normal - Psychological Associated symptoms: Normal affect, Normal mood - Skin Skin Temperature: Warm Skin Moisture: Dry Skin Color: Normal Course - Vital Signs Vital signs: Temp Pulse Resp BP Pulse Ox 97.7 F 74 13 109/72 99 03/18/19 07:37 03/18/19 07:37 03/18/19 07:37 03/18/19 07:37 03/18/19 07:37 - Laboratory Result Diagrams: 03/18/19 00:03 03/18/19 00:03 Laboratory results interpreted by me: 03/18/19 00:03 RDW 15.0 H - EKG Interpretation by Me Additional EKG results interpreted by me: 03/18/19 07:35 Twelve-lead EKG done on March 17, 2019 at 2158 shows a normal sinus rhythm rate of 86 first-degree AV block no acute ST-T wave changes. Discharge - Discharge Clinical Impression: Acute chest wall pain Condition: Stable Disposition: HOME, SELF-CARE Instructions: Chest Wall Pain ([facility]) Referrals: KRISTI KEEN MD [COMMUNITY BASED STAFF] - Follow up as needed I personally performed the services described in the documentation, reviewed and edited the documentation which was dictated to the scribe in my presence, and it accurately records my words and actions.
--- NOTE | 2019-03-18 23:48 | EKG REPORT ---
SEVERITY:- ABNORMAL ECG - SINUS RHYTHM FIRST DEGREE AV BLOCK : Confirmed by: Tomasz Mir 18-Mar-2019 23:46:59
== END 2019-03-18 07:46 | disposition home or self-care (01) ==
LOC: ER 21:52
DX: R07.89 Other chest pain (principal); R63.4 Abnormal weight loss; M25.473 Effusion, unspecified ankle; I44.0 Atrioventricular block, first degree; I10 Essential (primary) hypertension; I25.2 Old myocardial infarction; J44.9 Chronic obstructive pulmonary disease, unspecified; E11.9 Type 2 diabetes mellitus without complications; F17.210 Nicotine dependence, cigarettes, uncomplicated; Z88.1 Allergy status to other antibiotic agents; Z88.8 Allergy status to other drugs, medicaments and biological substances; Z91.040 Latex allergy status; Z88.0 Allergy status to penicillin; Z88.2 Allergy status to sulfonamides; Z91.041 Radiographic dye allergy status
CPT/HCPCS: 36415; 71046; 76700; 80053; 83690; 84484; 85025; 93005; 93010; 93976; 99285

== ENCOUNTER 2019-03-28 21:49 | Emergency (ER) | payer BC, OTHER ==
[2019-03-28 21:59] VITALS: BP 143/92
[2019-03-28] MEDS ORDERED: DIPHENHYDRAMINE HCL 50 MG CAPSULE PO ONE (22:11)
[2019-03-28] MEDS ORDERED: FAMOTIDINE 20 MG TABLET PO ONE (22:11)
--- NOTE | 2019-03-28 22:13 | ER Document Report ---
ED Medical Screen (RME) - General Chief Complaint: Allergic Reaction Stated Complaint: POSSIBLE ALLERGIC REACTION Time Seen by Provider: 03/28/19 22:08 Primary Care Provider: ELIZABETH SMALLS MD [Primary Care Provider] - Follow up as needed Notes: 43-year-old female presents with possible allergic reaction to either B12 1 or folic acid. Patient states she took both of them together for the first time tonight. Patient states about 30 minutes after she started having tingling on her tongue, nausea, mild dyspnea. No stridor. Lungs clear to auscultation bilaterally. No swelling to tongue, lips, throat seen. Patient speaks full sentences without any difficulty. I have greeted and performed a rapid initial assessment of this patient. A comprehensive ED assessment and evaluation of the patient, analysis of test re sults and completion of the medical decision making process with be conducted by additional ED providers. TRAVEL OUTSIDE OF THE [place] IN LAST 30 DAYS: No - Related Data Allergies/Adverse Reactions: Cephalosporins Allergy (Severe, Verified 12/13/18 10:00) Throat itching and swelling ciprofloxacin [From Cipro] Allergy (Severe, Verified 12/13/18 10:00) Blistering in mouth and throat ethyl alcohol Allergy (Severe, Verified 12/13/18 10:00) Shortness of Breath, cough, difficulty breathing fluticasone [From Flonase] Allergy (Severe, Verified 12/13/18 10:00) Migraine, nose bleed latex Allergy (Severe, Verified 12/13/18 10:00) RASH Penicillins Allergy (Severe, Verified 12/13/18 10:00) Throat swelling, difficulty breathing cephalexin [From Keflex] Allergy (Verified 12/13/18 10:00) Throat swelling, difficulty breathing dexlansoprazole [From Dexilant] Allergy (Verified 12/13/18 10:00) erythromycin base [From Erythrocin] Allergy (Verified 12/13/18 10:00) Hives fluoxetine [From Prozac] Allergy (Verified 12/13/18 10:00) metronidazole [From Flagyl] Allergy (Verified 12/13/18 10:00) Swelling of Throat prednisone Allergy (Verified 12/13/18 10:00) Tachycardia red dye Allergy (Verified 03/28/19 22:06) sertraline [From Zoloft] Allergy (Verified 12/13/18 10:00) sodium ferric gluconate complex [From Ferrlecit] Allergy (Verified 03/28/19 22:06) sucrose [From Ferrlecit] Allergy (Verified 03/28/19 22:06) aspirin Adverse Reaction (Verified 12/06/18 12:14) N&V Sulfa (Sulfonamide Antibiotics) Adverse Reaction (Verified 12/13/18 10:00) See Comments IV dye Allergy (Uncoded 12/13/18 10:00) arrhythmia Past Medical History - Social History Family history: None - Past Medical History Cardiac Medical History: Reports: Hx Heart Attack - 2009, no stent, Hx Hypertension - HX OF, no meds Denies: Hx Coronary Artery Disease Pulmonary Medical History: Reports: Hx Asthma, Hx COPD - INHALERS Denies: Hx Bronchitis, Hx Pneumonia Neurological Medical History: Reports: Hx Migraine, Hx Seizures - NO MEDS - LAST 2013 - NOT CURRENT. Denies: Hx Cerebrovascular Accident Endocrine Medical History: Reports: Hx Diabetes Mellitus Type 2 Renal/ Medical History: Denies: Hx Peritoneal Dialysis Musculoskeltal Medical History: Denies Hx Arthritis Past Surgical History: Reports: Hx Abdominal Surgery, Hx Cholecystectomy, Hx Gynecologic Surgery, Hx Hysterectomy, Hx Nose Surgery, Hx Thyroid Surgery, Hx Tubal Ligation - Immunizations Immunizations up to date: Yes Hx Diphtheria, Pertussis, Tetanus Vaccination: No Physical Exam - Vital signs Vitals: Temp Pulse Resp BP Pulse Ox 98.4 F 98 18 143/92 H 99 03/28/19 21:57 03/28/19 21:57 03/28/19 21:57 03/28/19 21:57 03/28/19 21:57 Course - Vital Signs Vital signs: Temp Pulse Resp BP Pulse Ox 98.4 F 98 18 143/92 H 99 03/28/19 21:57 03/28/19 21:57 03/28/19 21:57 03/28/19 21:57 03/28/19 21:57 Doctor's Discharge - Discharge Referrals: ELIZABETH SMALLS MD [Primary Care Provider] - Follow up as needed
== END 2019-03-29 01:47 | disposition left against medical advice (07) ==
LOC: ER 21:49
DX: R20.2 Paresthesia of skin (principal); R11.0 Nausea; R06.00 Dyspnea, unspecified; I10 Essential (primary) hypertension; J44.9 Chronic obstructive pulmonary disease, unspecified; E11.9 Type 2 diabetes mellitus without complications; Z88.1 Allergy status to other antibiotic agents; Z88.8 Allergy status to other drugs, medicaments and biological substances; Z91.040 Latex allergy status; Z88.0 Allergy status to penicillin; Z91.048 Other nonmedicinal substance allergy status; Z91.041 Radiographic dye allergy status; Z91.018 Allergy to other foods; Z53.20 Procedure and treatment not carried out because of patient's decision for unspecified reasons
CPT/HCPCS: 99281

== ENCOUNTER → 2019-04-05 | Outpatient (CLI) | payer BC, OTHER | LOC: RT 07:44 | PROVIDERS: ATTEND Physician Assistant | DX: J44.9 Chronic obstructive pulmonary disease, unspecified (principal) | CPT/HCPCS: 94010; 94727; 94729 ==

== ENCOUNTER 2019-04-11 11:21 | Emergency (ER) | payer BC ==
[2019-04-11 11:32] VITALS: BP 143/90
--- NOTE | 2019-04-11 12:03 | ER Document Report ---
ED Medical Screen (RME) - General Chief Complaint: Shoulder Pain Stated Complaint: RIB/SHOULDER PAIN Time Seen by Provider: 04/11/19 11:59 Primary Care Provider: ELIZABETH SMALLS MD [Primary Care Provider] - Follow up as needed Notes: HPI: 44-year-old female presenting to the emergency department complaining of left shoulder left rib pain from an injury that occurred 5 days ago. Patient states a friend of hers had a stroke and fell on top of her striking her in the ribs with the elbow. She also had to pick them up from the ground and states she injured her left shoulder. She went to her chiropractor today because she has chronic pain issues in the neck and back and they told her she needed to come to the emergency department for x-ray imaging. Complains of shortness of breath when she elevates the left arm. Denies abdominal pain I have greeted and performed a rapid initial assessment of this patient. A comprehensive ED assessment and evaluation of the patient, analysis of test results and completion of the medical decision making process will be conducted by additional ED providers PHYSICAL EXAMINATION: GENERAL: Well-appearing, well-nourished and in no acute distress. HEAD: Atraumatic, normocephalic. EYES: sclera anicteric, conjunctiva are normal. ENT: Moist mucous membranes. NECK: Normal range of motion LUNGS: Normal work of breathing, clear to auscultation HEART: 2+ radial pulses bilaterally, regular rate and rhythm, mild tenderness to the anterior and lateral chest wall on palpation ABD: limited by positioning for exam in triage. EXTREMITIES: no pitting or edema. No cyanosis. Mild tenderness on palpation around the left shoulder girdle NEUROLOGICAL: No focal neurological deficits. Moves all extremities spontaneously and on command. PSYCH: Normal mood, normal affect. SKIN: Warm, Dry, normal turgor, no rashes or lesions noted. TRAVEL OUTSIDE OF THE [place] IN LAST 30 DAYS: No - Related Data Allergies/Adverse Reactions: Cephalosporins Allergy (Severe, Verified 12/13/18 10:00) Throat itching and swelling ciprofloxacin [From Cipro] Allergy (Severe, Verified 12/13/18 10:00) Blistering in mouth and throat ethyl alcohol Allergy (Severe, Verified 12/13/18 10:00) Shortness of Breath, cough, difficulty breathing fluticasone [From Flonase] Allergy (Severe, Verified 12/13/18 10:00) Migraine, nose bleed latex Allergy (Severe, Verified 12/13/18 10:00) RASH Penicillins Allergy (Severe, Verified 12/13/18 10:00) Throat swelling, difficulty breathing cephalexin [From Keflex] Allergy (Verified 12/13/18 10:00) Throat swelling, difficulty breathing dexlansoprazole [From Dexilant] Allergy (Verified 12/13/18 10:00) erythromycin base [From Erythrocin] Allergy (Verified 12/13/18 10:00) Hives fluoxetine [From Prozac] Allergy (Verified 12/13/18 10:00) metronidazole [From Flagyl] Allergy (Verified 12/13/18 10:00) Swelling of Throat prednisone Allergy (Verified 12/13/18 10:00) Tachycardia red dye Allergy (Verified 03/28/19 22:06) sertraline [From Zoloft] Allergy (Verified 12/13/18 10:00) sodium ferric gluconate complex [From Ferrlecit] Allergy (Verified 03/28/19 22:06) sucrose [From Ferrlecit] Allergy (Verified 03/28/19 22:06) aspirin Adverse Reaction (Verified 12/06/18 12:14) N&V Sulfa (Sulfonamide Antibiotics) Adverse Reaction (Verified 12/13/18 10:00) See Comments IV dye Allergy (Uncoded 12/13/18 10:00) arrhythmia vitamin B1 Allergy (Uncoded 04/11/19 11:58) Past Medical History - Social History Family history: None - Past Medical History Cardiac Medical History: Reports: Hx Heart Attack - 2009, no stent, Hx Hypertension - HX OF, no meds Denies: Hx Coronary Artery Disease Pulmonary Medical History: Reports: Hx Asthma, Hx COPD - INHALERS Denies: Hx Bronchitis, Hx Pneumonia Neurological Medical History: Reports: Hx Migraine, Hx Seizures - NO MEDS - LAST 2013 - NOT CURRENT. Denies: Hx Cerebrovascular Accident Endocrine Medical History: Reports: Hx Diabetes Mellitus Type 2 Renal/ Medical History: Denies: Hx Peritoneal Dialysis Musculoskeltal Medical History: Denies Hx Arthritis Past Surgical History: Reports: Hx Abdominal Surgery, Hx Cholecystectomy, Hx Gynecologic Surgery, Hx Hysterectomy, Hx Nose Surgery, Hx Thyroid Surgery, Hx Tubal Ligation - Immunizations Immunizations up to date: Yes Hx Diphtheria, Pertussis, Tetanus Vaccination: No Physical Exam - Vital signs Vitals: Temp Pulse Resp BP Pulse Ox 98.3 F 86 18 143/90 H 98 04/11/19 11:31 04/11/19 11:31 04/11/19 11:31 04/11/19 11:31 04/11/19 11:31 Course - Vital Signs Vital signs: Temp Pulse Resp BP Pulse Ox 98.3 F 86 18 143/90 H 98 04/11/19 11:31 04/11/19 11:31 04/11/19 11:31 04/11/19 11:31 04/11/19 11:31 Doctor's Discharge - Discharge Referrals: ELIZABETH SMALLS MD [Primary Care Provider] - Follow up as needed
--- NOTE | 2019-04-11 12:56 | RADIOLOGY REPORT (SQ) ---
EXAM DESCRIPTION: SHOULDER LEFT 2 OR MORE VIEWS COMPLETED DATE/TIME: 04/11/2019 12:35 pm REASON FOR STUDY: injury COMPARISON: None. NUMBER OF VIEWS: Three views. TECHNIQUE: Internal rotation, external rotation, and Y view images acquired of the left shoulder. LIMITATIONS: None. FINDINGS: MINERALIZATION: Normal. BONES: No acute fracture. No worrisome bone lesions. JOINTS: No dislocation. VISUALIZED LUNGS AND RIBS: No pneumothorax. No rib fracture. SOFT TISSUES: No radiopaque foreign body. OTHER: No other significant finding. IMPRESSION: NEGATIVE STUDY OF THE LEFT SHOULDER. NO RADIOGRAPHIC EVIDENCE OF ACUTE INJURY. TECHNICAL DOCUMENTATION: JOB ID: [id number] 2010 [email or web address] / [employer]- All Rights Reserved Reading location - IP/workstation name: [facility]
--- NOTE | 2019-04-11 12:59 | RADIOLOGY REPORT (SQ) ---
EXAM DESCRIPTION: RIBS LEFT W/PA CHEST COMPLETED DATE/TIME: 04/11/2019 12:35 pm REASON FOR STUDY: injury COMPARISON: None. TECHNIQUE: Frontal view of the chest and additional views of the left ribs acquired. NUMBER OF VIEWS: Four view. LIMITATIONS: None. FINDINGS: FRONTAL CXR: No pneumothorax. No pleural effusion. No atelectasis or infiltrates. RIBS: Subtle irregularity of the distal end of the 10th and 11th ribs. No lytic or blastic bony lesi ons. OTHER: No other significant finding. IMPRESSION: POSSIBLE MINIMALLY DISPLACED FRACTURES OF THE DISTAL LEFT 10TH AND 11TH RIBS. COMMENT: SITE OF TRAUMA/COMPLAINT MARKED/STAMP COMPLETED: YES. TECHNICAL DOCUMENTATION: JOB ID: [id number] 2010 [employer]- All Rights Reserved Reading location - IP/workstation name: [email or web address]
--- NOTE | 2019-04-11 14:00 | ER Document Report ---
ED General - General Chief Complaint: Shoulder Pain Stated Complaint: RIB/SHOULDER PAIN Time Seen by Provider: 04/11/19 11:59 Primary Care Provider: ELIZABETH SMALLS MD [Primary Care Provider] - Follow up as needed TRAVEL OUTSIDE OF THE [place] IN LAST 30 DAYS: No - HPI Notes: Patient is a 44-year-old female who presents to the emergency department for evaluation of left shoulder and left chest wall injury. She states that she has a history of fractures and there is ribs in the past. The patient states that the last week her friend had a stroke. He fell on her, she had trouble lifting him into the car. She states he has pain in her left trapezius area as well as her left inferior ribs. She states he went to her chiropractor for an adjustment and she was told that she would need an x-ray before any adjustments could be made. She denies any shortness of breath. No fevers or chills. No coughing. Her pain is worsened by deep breath and movement of any sort. She denies any numbness or tingling. No other injuries. - Related Data Allergies/Adverse Reactions: Cephalosporins Allergy (Severe, Verified 12/13/18 10:00) Throat itching and swelling ciprofloxacin [From Cipro] Allergy (Severe, Verified 12/13/18 10:00) Blistering in mouth and throat ethyl alcohol Allergy (Severe, Verified 12/13/18 10:00) Shortness of Breath, cough, difficulty breathing fluticasone [From Flonase] Allergy (Severe, Verified 12/13/18 10:00) Migraine, nose bleed latex Allergy (Severe, Verified 12/13/18 10:00) RASH Penicillins Allergy (Severe, Verified 12/13/18 10:00) Throat swelling, difficulty breathing cephalexin [From Keflex] Allergy (Verified 12/13/18 10:00) Throat swelling, difficulty breathing dexlansoprazole [From Dexilant] Allergy (Verified 12/13/18 10:00) erythromycin base [From Erythrocin] Allergy (Verified 12/13/18 10:00) Hives fluoxetine [From Prozac] Allergy (Verified 12/13/18 10:00) metronidazole [From Flagyl] Allergy (Verified 12/13/18 10:00) Swelling of Throat prednisone Allergy (Verified 12/13/18 10:00) Tachycardia red dye Allergy (Verified 03/28/19 22:06) sertraline [From Zoloft] Allergy (Verified 12/13/18 10:00) sodium ferric gluconate complex [From Ferrlecit] Allergy (Verified 03/28/19 22:06) sucrose [From Ferrlecit] Allergy (Verified 03/28/19 22:06) aspirin Adverse Reaction (Verified 12/06/18 12:14) N&V Sulfa (Sulfonamide Antibiotics) Adverse Reaction (Verified 12/13/18 10:00) See Comments IV dye Allergy (Uncoded 12/13/18 10:00) arrhythmia vitamin B1 Allergy (Uncoded 04/11/19 11:58) Home Medications: Levothyroxin. Omeprazole. Vitamin D. Tums Ultra. Folic Acid Past Medical History - General Information source: Patient - Social History Smoking Status: Current Every Day Smoker Frequency of alcohol use: None Drug Abuse: None Family History: Reviewed & Not Pertinent, Malignancy Patient has suicidal ideation: No Patient has homicidal ideation: No - Past Medical History Cardiac Medical History: Reports: Hx Heart Attack - 2009, no stent, Hx Hypertension - HX OF, no meds Denies: Hx Coronary Artery Disease Pulmonary Medical History: Reports: Hx Asthma, Hx COPD - INHALERS Denies: Hx Bronchitis, Hx Pneumonia Neurological Medical History: Reports: Hx Migraine, Hx Seizures - NO MEDS - LAST 2013 - NOT CURRENT. Denies: Hx Cerebrovascular Accident Endocrine Medical History: Reports: Hx Diabetes Mellitus Type 2 Renal/ Medical History: Denies: Hx Peritoneal Dialysis Musculoskeletal Medical History: Denies Hx Arthritis Past Surgical History: Reports: Hx Abdominal Surgery, Hx Cholecystectomy, Hx Gynecologic Surgery, Hx Hysterectomy, Hx Nose Surgery, Hx Thyroid Surgery, Hx Tubal Ligation - Immunizations Immunizations up to date: Yes Hx Diphtheria, Pertussis, Tetanus Vaccination: No Review of Systems - Review of Systems Musculoskeletal: See HPI -: Yes All other systems reviewed and negative Physical Exam - Vital signs Vitals: Temp Pulse Resp BP Pulse Ox 98.3 F 86 18 143/90 H 98 04/11/19 11:31 04/11/19 11:31 04/11/19 11:31 04/11/19 11:31 04/11/19 11:31 - Notes Notes: Is a 44-year-old female who appears her stated age in no acute distress. Head is normocephalic and atraumatic, oral mucosa is moist. Heart is regular rate and rhythm, lungs are clear station bilaterally. Examination of the chest wall yields no obvious signs of injury or deformity. She has no crepitance. Chest wall excursion is equal bilaterally. Patient is tender to palpation from the mid clavicular line to the anterior axillary line over the 10th and 11th ribs on the left. Patient has full active and passive range of motion of the shoulder. She is tender to palpation over the left trapezius, the anterior humeral head. She is full range of motion at the elbow, wrist, fingers, thumb. Radial pulse 2+, capillary refill is brisk, sensation is intact. Course - Re-evaluation Re-evalutation: 04/11/19 13:58 Patient presents to the emergency department for evaluation. She was seen through triage. The patient had x-rays of the left shoulder and left ribs. A possible 10th and 11th rib fracture was noted, this certainly coincides with the area of the patient's pain on exam. She has multiple allergies, states she did tolerate Reading in the past. I will write her a prescription for a small amount of Reading. More concerning, however, as her likelihood of getting pneumonia giv en her status is a smoker. She is urged to quit smoking. She is given incentive spirometry. She is told to follow-up with her primary care provider next week. If develops worsening or new concerning symptoms of any sort she should of course return immediately to the emergency department for evaluation. - Vital Signs Vital signs: Temp Pulse Resp BP Pulse Ox 98.3 F 86 18 143/90 H 98 04/11/19 11:31 04/11/19 11:31 04/11/19 11:31 04/11/19 11:31 04/11/19 11:31 - Diagnostic Test Radiology reviewed: Reports reviewed Radiology results interpreted by me: 04/11/19 13:59 Ribs w/Chest X-Ray 04/11/19 12:01 IMPRESSION: POSSIBLE MINIMALLY DISPLACED FRACTURES OF THE DISTAL LEFT 10TH AND 11TH RIBS. Shoulder X-Ray 04/11/19 12:02 IMPRESSION: NEGATIVE STUDY OF THE LEFT SHOULDER. NO RADIOGRAPHIC EVIDENCE OF ACUTE INJURY. Discharge - Discharge Clinical Impression: Rib fractures Qualifiers: Encounter type: initial encounter Rib fracture type: multiple ribs Fracture type: closed Laterality: left Qualified Code(s): S22.42XA - Multiple fractures of ribs, left side, initial encounter for closed fracture Left shoulder strain Qualifiers: Encounter type: initial encounter Qualified Code(s): S46.912A - Strain of unspecified muscle, fascia and tendon at shoulder and upper arm level, left arm, initial encounter Condition: Stable Disposition: HOME, SELF-CARE Instructions: Rib Injuries and Fractures ([facility]), Shoulder Injury ([facility]) Additional Instructions: Moist heat to the painful area on your shoulder. Practice incentive spirometry as discussed and shown here in the emergency department. Take Reading as needed for severe pain. Please watch for dizziness, drowsiness, constipation with this medication. Try to quit smoking. Follow-up with your primary care doctor next week. Return to the emergency department with worsening or new concerning symptoms of any sort. Referrals: ELIZABETH SMALLS MD [Primary Care Provider] - Follow up as needed
== END 2019-04-11 14:17 | disposition home or self-care (01) ==
LOC: ER 11:21
DX: S22.42XA Multiple fractures of ribs, left side, initial encounter for closed fracture (principal); S46.912A Strain of unspecified muscle, fascia and tendon at shoulder and upper arm level, left arm, initial encounter; R07.81 Pleurodynia; M25.512 Pain in left shoulder; W51.XXXA Accidental striking against or bumped into by another person, initial encounter; Z88.8 Allergy status to other drugs, medicaments and biological substances; Z88.0 Allergy status to penicillin; Z88.1 Allergy status to other antibiotic agents; F17.200 Nicotine dependence, unspecified, uncomplicated; I25.2 Old myocardial infarction; I10 Essential (primary) hypertension; J44.9 Chronic obstructive pulmonary disease, unspecified; Z79.899 Other long term (current) drug therapy; E11.9 Type 2 diabetes mellitus without complications
CPT/HCPCS: 99283

== ENCOUNTER 2019-05-09 21:37 | Emergency (ER) | payer BC, OTHER ==
[2019-05-09 21:43] VITALS: BP 122/86
--- NOTE | 2019-05-09 21:50 | ER Document Report ---
ED Medical Screen (RME) - General Chief Complaint: Numbness Stated Complaint: LEFT SIDE NUMBNESS,HEADACHE ON THE LEFT SIDE Time Seen by Provider: 05/09/19 21:44 Primary Care Provider: ELIZABETH SMALLS MD [Primary Care Provider] - Follow up as needed Mode of Arrival: Wheelchair Information source: Patient Notes: Patient presents complaining of left-sided facial numbness and left-sided headache pain that started 2 hours prior to arrival. Patient also complains of neck pain for the past 3 days after being khushbu. Patient does complain of left upper extremity numbness as well. Patient reports a history of dyslipidemia, anemia, hypoglycemia. I have greeted and performed a rapid initial assessment of this patient. A comprehensive ED assessment and evaluation of the patient, analysis of test results and completion of the medical decision making process will be conducted by additional ED providers. TRAVEL OUTSIDE OF THE [place] IN LAST 30 DAYS: No - Related Data Allergies/Adverse Reactions: Cephalosporins Allergy (Severe, Verified 12/13/18 10:00) Throat itching and swelling ciprofloxacin [From Cipro] Allergy (Severe, Verified 12/13/18 10:00) Blistering in mouth and throat ethyl alcohol Allergy (Severe, Verified 12/13/18 10:00) Shortness of Breath, cough, difficulty breathing fluticasone [From Flonase] Allergy (Severe, Verified 12/13/18 10:00) Migraine, nose bleed latex Allergy (Severe, Verified 12/13/18 10:00) RASH Penicillins Allergy (Severe, Verified 12/13/18 10:00) Throat swelling, difficulty breathing cephalexin [From Keflex] Allergy (Verified 12/13/18 10:00) Throat swelling, difficulty breathing dexlansoprazole [From Dexilant] Allergy (Verified 12/13/18 10:00) erythromycin base [From Erythrocin] Allergy (Verified 12/13/18 10:00) Hives fluoxetine [From Prozac] Allergy (Verified 12/13/18 10:00) metronidazole [From Flagyl] Allergy (Verified 12/13/18 10:00) Swelling of Throat prednisone Allergy (Verified 12/13/18 10:00) Tachycardia red dye Allergy (Verified 03/28/19 22:06) sertraline [From Zoloft] Allergy (Verified 12/13/18 10:00) sodium ferric gluconate complex [From Ferrlecit] Allergy (Verified 03/28/19 22:06) sucrose [From Ferrlecit] Allergy (Verified 03/28/19 22:06) aspirin Adverse Reaction (Verified 12/06/18 12:14) N&V Sulfa (Sulfonamide Antibiotics) Adverse Reaction (Verified 12/13/18 10:00) See Comments IV dye Allergy (Uncoded 12/13/18 10:00) arrhythmia vitamin B1 Allergy (Uncoded 04/11/19 11:58) Past Medical History - Social History Family history: None - Past Medical History Cardiac Medical History: Reports: Hx Heart Attack - 2009, no stent, Hx Hypertension - HX OF, no meds Denies: Hx Coronary Artery Disease Pulmonary Medical History: Reports: Hx Asthma, Hx COPD - INHALERS Denies: Hx Bronchitis, Hx Pneumonia Neurological Medical History: Reports: Hx Migraine, Hx Seizures - NO MEDS - LAST 2013 - NOT CURRENT. Denies: Hx Cerebrovascular Accident Endocrine Medical History: Reports: Hx Diabetes Mellitus Type 2 Renal/ Medical History: Denies: Hx Peritoneal Dialysis Musculoskeltal Medical History: Denies Hx Arthritis Past Surgical History: Reports: Hx Abdominal Surgery, Hx Cholecystectomy, Hx Gynecologic Surgery, Hx Hysterectomy, Hx Nose Surgery, Hx Thyroid Surgery, Hx Tubal Ligation - Immunizations Immunizations up to date: Yes Hx Diphtheria, Pertussis, Tetanus Vaccination: No Physical Exam - Vital signs Vitals: Temp Pulse Resp BP Pulse Ox 98.2 F 96 16 122/86 H 99 05/09/19 21:42 05/09/19 21:42 05/09/19 21:42 05/09/19 21:42 05/09/19 21:42 - General General appearance: Appears well, Alert Notes: Normal strength to bilateral upper extremities, no facial palsy, speech clear Course - Vital Signs Vital signs: Temp Pulse Resp BP Pulse Ox 98.2 F 96 16 122/86 H 99 05/09/19 21:42 05/09/19 21:42 05/09/19 21:42 05/09/19 21:42 05/09/19 21:42 Doctor's Discharge - Discharge Referrals: ELIZABETH SMALLS MD [Primary Care Provider] - Follow up as needed
--- NOTE | 2019-05-09 22:16 | RADIOLOGY REPORT (SQ) ---
CLINICAL INDICATION: [place], facial numbness, LUE numbness. TECHNIQUE: A single portable AP view was obtained of the chest at 2215 hours. COMPARISON: April 11, 2019. FINDINGS: The cardiomediastinal silhouette is normal. The lungs are grossly clear. No evidence of effusion or pneumothorax. The visualized bones are unremarkable. Mild chronic change IMPRESSION: No evidence of active intrathoracic disease. No adverse change
--- NOTE | 2019-05-09 22:18 | RADIOLOGY REPORT (SQ) ---
EXAM DESCRIPTION: Noncontrast CT head CLINICAL HISTORY: 44 years Female [place], facial numbness, LUE numbness TECHNIQUE: Noncontrast CT head. All CT scans at this facility use dose modulation, iterative reconstruction, and/or weight based dosing when appropriate to reduce radiation dose to as low as reasonably achievable. COMPARISON: None. FINDINGS: Spicer matter, white matter, ventricles, and cisterns are within normal limits. No acute hemorrhage or mass effect. Visualized portions of paranasal sinuses demonstrate scattered ethmoid sinus disease. The mastoids are clear. Visualized portions of the calvarium are within normal limits. IMPRESSION: 1. No acute intracranial findings. If there is clinical concern for acute stroke, consider MRI brain as a more sensitive evaluation.
[2019-05-09] MEDS ORDERED: METHOCARBAMOL INJ/PF 1000 MG/10 ML SDV IV ONE (22:44)
[2019-05-09 22:46] LABS: ABSOLUTE BASOPHILS # (AUTO) 0.1 10^3/uL (0.0-0.2); ABSOLUTE EOSINOPHILS # (AUTO) 0.2 10^3/uL (0.0-0.6); ABSOLUTE LYMPHOCYTES (AUTO) 2.9 10^3/uL (0.5-4.7); ABSOLUTE MONOCYTES (AUTO) 0.5 10^3/uL (0.1-1.4); ABSOLUTE NEUT (AUTO) 4.9 10^3/uL (1.7-8.2); BASOPHILS % (AUTO) 0.8 % (0-2); EOSINOPHILS % (AUTO) 2.7 % (0-6); HEMOGLOBIN 13.4 g/dL (12.0-15.5); LYMPHOCYTES % (AUTO) 33.7 % (13-45); MEAN CORPUSCULAR HEMOGLOBIN 31.2 pg (27.0-33.4); MEAN CORPUSCULAR HGB CONC 34.3 g/dL (32.0-36.0); MEAN CORPUSCULAR VOLUME 91 fl (80-97); PLATELET COUNT 201 10^3/uL (150-450); RED BLOOD COUNT 4.29 10^6/uL (3.72-5.28); RED CELL DISTRIBUTION WIDTH 14.4 % (11.5-14.0); SEGMENTED NEUTROPHILS % (AUTO) 56.8 % (42-78); TOTAL CELLS COUNTED % (AUTO) 100 %; WHITE BLOOD COUNT 8.6 10^3/uL (4.0-10.5)
[2019-05-09 22:49] LABS: INTERNATIONAL RATION (INR) 0.89; PARTIAL THROMBOPLASTIN TIME 25.1 SEC (23.5-35.8)
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
[2019-05-09 23:04] LABS: ALBUMIN 4.2 g/dL (3.5-5.0); ALKALINE PHOSPHATASE 60 U/L (38-126); ANION GAP 6 (5-19); ASPARTATE AMINO TRANSFERASE 18 U/L (14-36); BILIRUBIN,DIRECT 0.3 mg/dL (0.0-0.4); BILIRUBIN,TOTAL 0.3 mg/dL (0.2-1.3); BLOOD UREA NITROGEN 13 mg/dL (7-20); CALCIUM 9.7 mg/dL (8.4-10.2); CARBON DIOXIDE 27 mmol/L (22-30); CHLORIDE 104 mmol/L (98-107); CREATINE KINASE 44 U/L (30-135); GLUCOSE 95 mg/dL (75-110); POTASSIUM 3.7 mmol/L (3.6-5.0); TOTAL PROTEIN 7.1 g/dL (6.3-8.2)
[2019-05-09 23:16] LABS: CREATINE KINASE MB < 0.22 ng/mL (<4.55); TROPONIN I < 0.012 ng/mL
--- NOTE | 2019-05-09 23:16 | RADIOLOGY REPORT (SQ) ---
INDICATION: left arm numbness, ulnar distribution. COMPARISON: None CORRELATION: None TECHNIQUE: Noncontrast spiral axial CT images were obtained through the cervical spine with multiplanar reconstructions. This exam was performed according to our departmental dose-optimization program, which includes automated exposure control, adjustment of the mA and/or kV according to patient size and/or use of iterative reconstruction techniques. FINDINGS: No acute displaced fracture is identified of the cervical spine. Alignment is anatomic. No focal alignment abnormality is identified. The uncovertebral joints and facets are within normal limits, for age. Surrounding soft tissues of the neck are unremarkable. The pharynx appears symmetric. Thyroid appears be surgically absent. Please correlate with history. The lung apices are grossly clear. IMPRESSION: No acute bony injury is seen to the cervical spine.
[2019-05-10] MEDS ORDERED: DIPHENHYDRAMINE HCL 50 MG/ML VIAL IV ONE (00:18)
[2019-05-10] MEDS ORDERED: PROCHLORPERAZINE EDISYLATE INJ 10 MG/2 ML VIAL IV ONE (00:18)
--- NOTE | 2019-05-10 11:24 | EKG REPORT ---
SEVERITY:- ABNORMAL ECG - SINUS RHYTHM FIRST DEGREE AV BLOCK : Confirmed by: Sergio Mueller MD 10-May-2019 11:23:28
== END 2019-05-10 04:27 | disposition home or self-care (01) ==
LOC: ER 21:37
DX: R20.0 Anesthesia of skin (principal); R51 Headache; M50.30 Other cervical disc degeneration, unspecified cervical region; Z88.8 Allergy status to other drugs, medicaments and biological substances; F17.200 Nicotine dependence, unspecified, uncomplicated; Z88.2 Allergy status to sulfonamides; Z88.0 Allergy status to penicillin; Z88.1 Allergy status to other antibiotic agents; I10 Essential (primary) hypertension; J44.9 Chronic obstructive pulmonary disease, unspecified; E11.9 Type 2 diabetes mellitus without complications
CPT/HCPCS: 93005; 36415; 82553; 82550; 84703; 85025; 85610; 85730; 80053; 84484; 71045; 70450; 72125; 93010; J1200; J2800; J0780; 96365; 96375; 99284

== ENCOUNTER 2019-06-30 15:15 | Emergency (ER) | payer BC ==
[2019-06-30 16:06] LABS: ABSOLUTE BASOPHILS # (AUTO) 0.1 10^3/uL (0.0-0.2); ABSOLUTE EOSINOPHILS # (AUTO) 0.3 10^3/uL (0.0-0.6); ABSOLUTE LYMPHOCYTES (AUTO) 2.3 10^3/uL (0.5-4.7); ABSOLUTE MONOCYTES (AUTO) 0.4 10^3/uL (0.1-1.4); ABSOLUTE NEUT (AUTO) 5.3 10^3/uL (1.7-8.2); BASOPHILS % (AUTO) 1.1 % (0-2); EOSINOPHILS % (AUTO) 3.3 % (0-6); HEMATOCRIT 39.2 % (36.0-47.0); HEMOGLOBIN 13.6 g/dL (12.0-15.5); LYMPHOCYTES % (AUTO) 26.9 % (13-45); MEAN CORPUSCULAR HEMOGLOBIN 31.2 pg (27.0-33.4); MEAN CORPUSCULAR HGB CONC 34.8 g/dL (32.0-36.0); MEAN CORPUSCULAR VOLUME 90 fl (80-97); MONOCYTES % (AUTO) 5.1 % (3-13); PLATELET COUNT 206 10^3/uL (150-450); RED BLOOD COUNT 4.38 10^6/uL (3.72-5.28); RED CELL DISTRIBUTION WIDTH 14.2 % (11.5-14.0); SEGMENTED NEUTROPHILS % (AUTO) 63.6 % (42-78); TOTAL CELLS COUNTED % (AUTO) 100 %; WHITE BLOOD COUNT 8.4 10^3/uL (4.0-10.5)
[2019-06-30 16:24] LABS: ALBUMIN 4.3 g/dL (3.5-5.0); ALKALINE PHOSPHATASE 58 U/L (38-126); ANION GAP 8 (5-19); ASPARTATE AMINO TRANSFERASE 18 U/L (14-36); BILIRUBIN,TOTAL 0.4 mg/dL (0.2-1.3); BLOOD UREA NITROGEN 10 mg/dL (7-20); CALCIUM 9.3 mg/dL (8.4-10.2); CARBON DIOXIDE 22 mmol/L (22-30); CHLORIDE 107 mmol/L (98-107); CREATINE KINASE 70 U/L (30-135); GLUCOSE 92 mg/dL (75-110); POTASSIUM 4.2 mmol/L (3.6-5.0); TOTAL PROTEIN 7.2 g/dL (6.3-8.2)
[2019-06-30 16:37] LABS: CREATINE KINASE MB < 0.22 ng/mL (<4.55); TROPONIN I < 0.012 ng/mL
--- NOTE | 2019-06-30 16:50 | RADIOLOGY REPORT (SQ) ---
EXAM DESCRIPTION: CHEST 2 VIEWS IMAGES COMPLETED DATE/TIME: 06/30/2019 4:27 pm REASON FOR STUDY: chest pain COMPARISON: 05/09/2019 EXAM PARAMETERS: NUMBER OF VIEWS: two views TECHNIQUE: Digital Frontal and Lateral radiographic views of the chest acquired. RADIATION DOSE: NA LIMITATIONS: none FINDINGS: LUNGS AND PLEURA: No opacities, masses or pneumothorax. No pleural effusion. MEDIASTINUM AND HILAR STRUCTURES: No masses or contour abnormalities. HEART AND VASCULAR STRUCTURES: Heart normal size. No evidence for failure. BONES: No acute findings. HARDWARE: None in the chest. OTHER: No other significant finding. IMPRESSION: NO ACUTE RADIOGRAPHIC FINDING IN THE CHEST. TECHNICAL DOCUMENTATION: JOB ID: [id number] 2010 [email or web address]- All Rights Reserved Reading location - IP/workstation name: [email or web address]
--- NOTE | 2019-06-30 18:18 | ER Document Report ---
ED General - General Chief Complaint: Chest Pain Stated Complaint: CHEST PAIN Time Seen by Provider: 06/30/19 16:13 Primary Care Provider: ELIZABETH SMALLS MD [Primary Care Provider] - Follow up as needed Mode of Arrival: Ambulatory Information source: Patient Notes: 44-year-old female presented to ED for chest leg pain to the right and left chest on and off. She states she has this all the time but today she has had this sharp almost like a rubber band snapping pain earlier today that is much better now. She is alert oriented respirations regular nonlabored speaking in full sentences. She does have a history of high cholesterol high blood pressure but she does not take meds for either 1. She states she has had a history of asthma and stroke but continues to smoke a half to a pack a day. She does have a history of a stroke but they did not give her any reason for the stroke. TRAVEL OUTSIDE OF THE [place] IN LAST 30 DAYS: No - HPI Onset: This afternoon Onset/Duration: Intermittent Quality of pain: Sharp Associated symptoms: Chest pain Exacerbated by: Denies Relieved by: Denies Similar symptoms previously: Yes Recently seen / treated by doctor: No - Related Data Allergies/Adverse Reactions: Cephalosporins Allergy (Severe, Verified 12/13/18 10:00) Throat itching and swelling ciprofloxacin [From Cipro] Allergy (Severe, Verified 12/13/18 10:00) Blistering in mouth and throat ethyl alcohol Allergy (Severe, Verified 12/13/18 10:00) Shortness of Breath, cough, difficulty breathing fluticasone [From Flonase] Allergy (Severe, Verified 12/13/18 10:00) Migraine, nose bleed latex Allergy (Severe, Verified 12/13/18 10:00) RASH Penicillins Allergy (Severe, Verified 12/13/18 10:00) Throat swelling, difficulty breathing cephalexin [From Keflex] Allergy (Verified 12/13/18 10:00) Throat swelling, difficulty breathing dexlansoprazole [From Dexilant] Allergy (Verified 12/13/18 10:00) erythromycin base [From Erythrocin] Allergy (Verified 12/13/18 10:00) Hives fluoxetine [From Prozac] Allergy (Verified 12/13/18 10:00) metronidazole [From Flagyl] Allergy (Verified 12/13/18 10:00) Swelling of Throat prednisone Allergy (Verified 12/13/18 10:00) Tachycardia red dye Allergy (Verified 03/28/19 22:06) sertraline [From Zoloft] Allergy (Verified 12/13/18 10:00) sodium ferric gluconate complex [From Ferrlecit] Allergy (Verified 03/28/19 22:06) sucrose [From Ferrlecit] Allergy (Verified 03/28/19 22:06) aspirin Adverse Reaction (Verified 12/06/18 12:14) N&V Sulfa (Sulfonamide Antibiotics) Adverse Reaction (Verified 12/13/18 10:00) See Comments IV dye Allergy (Uncoded 12/13/18 10:00) arrhythmia vitamin B1 Allergy (Uncoded 04/11/19 11:58) Past Medical History - General Information source: Patient - Social History Smoking Status: Current Every Day Smoker Cigarette use (# per day): Yes - 1/2 to 1 pack/day Smoking Education Provided: Yes - 4 minutes Lives with: Family Family History: Malignancy - Past Medical History Cardiac Medical History: Reports: Hx Heart Attack - 2009, no stent, Hx Hypercholesterolemia, Hx Hypertension - HX OF, no meds Pulmonary Medical History: Reports: Hx Asthma, Hx COPD - INHALERS EENT Medical History: Reports: None Neurological Medical History: Reports: Hx Migraine, Hx Seizures - NO MEDS - LAST 2013 - NOT CURRENT Endocrine Medical History: Reports: Hx Diabetes Mellitus Type 2 Renal/ Medical History: Reports: None Malignancy Medical History: Reports: None GI Medical History: Reports: None Musculoskeletal Medical History: Reports None Skin Medical History: Reports None Psychiatric Medical History: Reports: Hx Depression Traumatic Medical History: Reports: None Infectious Medical History: Reports: None Past Surgical History: Reports: Hx Abdominal Surgery, Hx Cholecystectomy, Hx Gynecologic Surgery, Hx Hysterectomy, Hx Nose Surgery, Hx Thyroid Surgery, Hx Tubal Ligation - Immunizations Immunizations up to date: Yes Hx Diphtheria, Pertussis, Tetanus Vaccination: No Review of Systems - Review of Systems Constitutional: No symptoms reported EENT: No symptoms reported Cardiovascular: Chest pain Respiratory: No symptoms reported Gastrointestinal: No symptoms reported Genitourinary: No symptoms reported Female Genitourinary: No symptoms reported Musculoskeletal: No symptoms reported Skin: No symptoms reported Hematologic/Lymphatic: No symptoms reported Neurological/Psychological: No symptoms reported Physical Exam - Vital signs Vitals: Temp Pulse Resp BP Pulse Ox 97.4 F 87 16 124/77 98 06/30/19 15:29 06/30/19 15:29 06/30/19 15:29 06/30/19 15:29 06/30/19 15:29 Interpretation: Normal - General General appearance: Appears well, Alert - HEENT Head: Normocephalic, Atraumatic Eyes: Normal Pupils: PERRL - Respiratory Respiratory status: No respiratory distress Chest status: Nontender Breath sounds: Normal Chest palpation: Normal - Cardiovascular Rhythm: Regular Heart sounds: Normal auscultation Murmur: No - Abdominal Inspection: Normal Distension: No distension Bowel sounds: Normal Tenderness: Nontender Organomegaly: No organomegaly - Back Back: Normal, Nontender - Extremities General upper extremity: Normal inspection, Nontender, Normal color, Normal ROM, Normal temperature General lower extremity: Normal inspection, Nontender, Normal color, Normal ROM, Normal temperature, Normal weight bearing. No: Keke's sign - Neurological Neuro grossly intact: Yes Cognition: Normal Orientation: AAOx4 Heber Coma Scale Eye Opening: Spontaneous Pedrito Coma Scale Verbal: Oriented Heber Coma Scale Motor: Obeys Commands Pedrito Coma Scale Total: 15 Speech: Normal Motor strength normal: LUE, RUE, LLE, RLE Sensory: Normal - Psychological Associated symptoms: Normal affect, Normal mood - Skin Skin Temperature: Warm Skin Moisture: Dry Skin Color: Normal Course - Re-evaluation Re-evalutation: 06/30/19 23:53 Discussed x-ray and labs with patient. I did try to get the patient to stay till the lab work was completed but she refused to stay and have her work-up completed. She states that she was getting very antsy and if her could not come in and eat his food with her that she was not going to stay and she was can go home. She did verbalize understanding that it was not advisable to go home without a complete work-up when she was complaining of chest pain. I did instruct her that complications could be anything from increased pain all the way up to . Patient did verbalize understanding of this and she did leave. - Vital Signs Vital signs: Temp Pulse Resp BP Pulse Ox 97.4 F 87 16 98/61 L 100 06/30/19 16:00 06/30/19 15:29 06/30/19 18:01 06/30/19 18:01 06/30/19 18:01 - Laboratory Result Diagrams: 06/30/19 16:00 06/30/19 16:00 Laboratory results interpreted by me: 06/30/19 06/30/19 16:00 16:00 RDW 14.2 H Sodium 136.5 L - Diagnostic Test Radiology reviewed: Image reviewed, Reports reviewed Discharge - Discharge Clinical Impression: Chest pain Qualifiers: Chest pain type: unspecified Qualified Code(s): R07.9 - Chest pain, unspecified Disposition: AGAINST MEDICAL ADVICE Referrals: ELIZABETH SMALLS MD [Primary Care Provider] - Follow up as needed
[2019-06-30 20:06] VITALS: BP 98/61
--- NOTE | 2019-07-02 10:51 | EKG REPORT ---
SEVERITY:- BORDERLINE ECG - SINUS RHYTHM BORDERLINE INFERIOR Q WAVES : Confirmed by: Tomasz Mir 02-Jul-2019 10:51:05
== END 2019-06-30 19:00 | disposition left against medical advice (07) ==
LOC: ER 15:15
DX: R07.9 Chest pain, unspecified (principal); F17.210 Nicotine dependence, cigarettes, uncomplicated; E78.00 Pure hypercholesterolemia, unspecified; I10 Essential (primary) hypertension; E11.9 Type 2 diabetes mellitus without complications; Z90.49 Acquired absence of other specified parts of digestive tract; Z88.6 Allergy status to analgesic agent; Z88.2 Allergy status to sulfonamides; Z88.3 Allergy status to other anti-infective agents; Z91.040 Latex allergy status; I25.2 Old myocardial infarction
CPT/HCPCS: 36415; 71046; 80053; 82550; 82553; 83690; 84484; 85025; 93005; 93010; 99285; 99406

== ENCOUNTER 2019-08-11 21:59 | Emergency (ER) | payer BC ==
[2019-08-11] MEDS ORDERED: ONDANSETRON 4 MG TAB.RAPDIS PO ONE (23:59)
--- NOTE | 2019-08-12 00:01 | ER Document Report ---
ED Medical Screen (RME) - General Chief Complaint: Abdominal Cramping Stated Complaint: HIGH BLOOD PRESSURE, NECK PAIN Primary Care Provider: ELIZABETH SMALLS MD [Primary Care Provider] - Follow up as needed Notes: Patient is a 44-year-old white female with a history of chronic pain, hypothyroidism, "uterine mass" who presents the emergency department with chief complaint of lower abdominal pain. She states she is at the end of her normal menstrual cycle and is having some light spotting as expected. She states that she is scheduled for an ablation of the uterine mass in the near future with her [employer]. She states recently she has had some fluctuations in her baseline temperatures and some alterations in her baseline blood pressures. She states today she started to have the lower pelvic/lower abdominal pain accompanied by these other findings, was concerned and came for evaluation. I have treated and performed a rapid initial assessment of this patient. A comprehensive ED assessment and evaluation of the patient, analysis of test results and completion of medical decision making process will be conducted by additional ED providers. PHYSICAL EXAMINATION: GENERAL: Well-appearing, well-nourished and in no acute distress. A&Ox4. Answers questions appropriately. TRAVEL OUTSIDE OF THE [place] IN LAST 30 DAYS: No - Related Data Allergies/Adverse Reactions: Cephalosporins Allergy (Severe, Verified 12/13/18 10:00) Throat itching and swelling ciprofloxacin [From Cipro] Allergy (Severe, Verified 12/13/18 10:00) Blistering in mouth and throat ethyl alcohol Allergy (Severe, Verified 12/13/18 10:00) Shortness of Breath, cough, difficulty breathing fluticasone [From Flonase] Allergy (Severe, Verified 12/13/18 10:00) Migraine, nose bleed latex Allergy (Severe, Verified 12/13/18 10:00) RASH Penicillins Allergy (Severe, Verified 12/13/18 10:00) Throat swelling, difficulty breathing cephalexin [From Keflex] Allergy (Verified 12/13/18 10:00) Throat swelling, difficulty breathing dexlansoprazole [From Dexilant] Allergy (Verified 12/13/18 10:00) erythromycin base [From Erythrocin] Allergy (Verified 12/13/18 10:00) Hives fluoxetine [From Prozac] Allergy (Verified 12/13/18 10:00) metronidazole [From Flagyl] Allergy (Verified 12/13/18 10:00) Swelling of Throat prednisone Allergy (Verified 12/13/18 10:00) Tachycardia red dye Allergy (Verified 03/28/19 22:06) sertraline [From Zoloft] Allergy (Verified 12/13/18 10:00) sodium ferric gluconate complex [From Ferrlecit] Allergy (Verified 03/28/19 22:06) sucrose [From Ferrlecit] Allergy (Verified 03/28/19 22:06) aspirin Adverse Reaction (Verified 12/06/18 12:14) N&V Sulfa (Sulfonamide Antibiotics) Adverse Reaction (Verified 12/13/18 10:00) See Comments IV dye Allergy (Uncoded 12/13/18 10:00) arrhythmia vitamin B1 Allergy (Uncoded 04/11/19 11:58) Past Medical History - Social History Family history: None - Past Medical History Cardiac Medical History: Reports: Hx Heart Attack - 2009, no stent, Hx Hypercholesterolemia, Hx Hypertension - HX OF, no meds Denies: Hx Coronary Artery Disease Pulmonary Medical History: Reports: Hx Asthma, Hx COPD - INHALERS Denies: Hx Bronchitis, Hx Pneumonia Neurological Medical History: Reports: Hx Migraine, Hx Seizures - NO MEDS - LAST 2013 - NOT CURRENT. Denies: Hx Cerebrovascular Accident Endocrine Medical History: Reports: Hx Diabetes Mellitus Type 2 Renal/ Medical History: Denies: Hx Peritoneal Dialysis Musculoskeltal Medical History: Denies Hx Arthritis Psychiatric Medical History: Reports: Hx Depression Past Surgical History: Reports: Hx Abdominal Surgery, Hx Cholecystectomy, Hx Gynecologic Surgery, Hx Hysterectomy, Hx Nose Surgery, Hx Thyroid Surgery, Hx Tubal Ligation - Immunizations Immunizations up to date: Yes Hx Diphtheria, Pertussis, Tetanus Vaccination: No Physical Exam - Vital signs Vitals: Temp 98.7 F 08/11/19 23:53 Course - Vital Signs Vital signs: Temp Pulse Resp BP Pulse Ox 98.7 F 08/11/19 23:53 Doctor's Discharge - Discharge Referrals: ELIZABETH SMALLS MD [Primary Care Provider] - Follow up as needed
--- NOTE | 2019-08-12 01:08 | RADIOLOGY REPORT (SQ) ---
EXAM: US Pelvis Transvaginal CLINICAL DATA: 44-year-old female with pelvic pain and history of uterine mass TECHNICAL DATA: Ultrasound imaging of the pelvis was performed transabdominally and endovaginally on 08/12/2019 at 12:20 AM. COMPARISONS: CT abdomen and pelvis performed on 07/19/2018 FINDINGS: The uterus is normal in size, shape and echogenicity and measures 8.6 x 4.4 x 6.7 cm. The endometrial complex measures 0.6 cm in thickness. There is no endometrial fluid. No definite uterine mass lesion is identified. The cervix measures approximately 2.5 cm in length. There does appear to be a small cervical nabothian cyst. The right ovary measures 2.6 x 1.5 x 1.9 cm. The right ovary is normal in size, shape and echogenicity. Doppler imaging demonstrates normal pulsed and color Doppler flow. The left ovary measures 3.9 x 1.7 x 3.0 cm. The left ovary contains normal follicles. Doppler imaging demonstrates normal pulsed and color Doppler flow. There is no free fluid in the pelvis. IMPRESSION: Normal pelvic ultrasound.
[2019-08-12 01:20] LABS: APPEARANCE,URINE CLEAR; BILIRUBIN,URINE NEGATIVE (NEGATIVE); COLOR,URINE STRAW; GLUCOSE, URINE NEGATIVE (NEGATIVE); KETONES,URINE NEGATIVE (NEGATIVE); PROTEIN,URINE NEGATIVE (NEGATIVE); URINE SPECIFIC GRAVITY 1.006; UROBILINOGEN,URINE NEGATIVE mg/dL (<2.0)
[2019-08-12 01:21] LABS: ABSOLUTE BASOPHILS # (AUTO) 0.1 10^3/uL (0.0-0.2); ABSOLUTE EOSINOPHILS # (AUTO) 0.2 10^3/uL (0.0-0.6); ABSOLUTE LYMPHOCYTES (AUTO) 2.4 10^3/uL (0.5-4.7); ABSOLUTE MONOCYTES (AUTO) 0.4 10^3/uL (0.1-1.4); ABSOLUTE NEUT (AUTO) 3.6 10^3/uL (1.7-8.2); EOSINOPHILS % (AUTO) 3.7 % (0-6); HEMATOCRIT 43.6 % (36.0-47.0); HEMOGLOBIN 15.1 g/dL (12.0-15.5); LYMPHOCYTES % (AUTO) 35.7 % (13-45); MEAN CORPUSCULAR HEMOGLOBIN 32.7 pg (27.0-33.4); MEAN CORPUSCULAR HGB CONC 34.7 g/dL (32.0-36.0); MEAN CORPUSCULAR VOLUME 94 fl (80-97); MONOCYTES % (AUTO) 5.4 % (3-13); PLATELET COUNT 203 10^3/uL (150-450); RED BLOOD COUNT 4.62 10^6/uL (3.72-5.28); RED CELL DISTRIBUTION WIDTH 15.6 % (11.5-14.0); SEGMENTED NEUTROPHILS % (AUTO) 54.2 % (42-78); TOTAL CELLS COUNTED % (AUTO) 100 %; WHITE BLOOD COUNT 6.7 10^3/uL (4.0-10.5)
[2019-08-12 01:40] LABS: ALBUMIN 4.7 g/dL (3.5-5.0); ALKALINE PHOSPHATASE 51 U/L (38-126); ANION GAP 7 (5-19); ASPARTATE AMINO TRANSFERASE 21 U/L (14-36); BILIRUBIN,TOTAL 0.4 mg/dL (0.2-1.3); BLOOD UREA NITROGEN 13 mg/dL (7-20); CALCIUM 9.9 mg/dL (8.4-10.2); CARBON DIOXIDE 27 mmol/L (22-30); CHLORIDE 106 mmol/L (98-107); GLUCOSE 96 mg/dL (75-110); POTASSIUM 4.2 mmol/L (3.6-5.0); TOTAL PROTEIN 7.5 g/dL (6.3-8.2)
--- NOTE | 2019-08-12 11:22 | ER Document Report ---
ED General - General Chief Complaint: Abdominal Cramping Stated Complaint: HIGH BLOOD PRESSURE, NECK PAIN Time Seen by Provider: 08/12/19 11:19 Primary Care Provider: ELIZABETH SMALLS MD [Primary Care Provider] - Follow up as needed Mode of Arrival: Ambulatory Notes: triage note 08/11/19 23:49 - Nursing Note by ERIC LADD [facility] Num: [id number] : 1975 Patient Age: 44 PT ARRIVES TO THE ED FOR ABDOMINAL PAIN THAT STARTED AROUND THE 08/06/19 PT HAS A MASS ON HER OVARY AND IS SCHEDULED FOR A OBLATION. PT STATED THAT OVER THE PAST HR SHE HAS NOTICED SWELLING IN HER ABDOMEN AND FEELS LIKE HER SKIN IS BURNING ON THE INSIDE. PT IN OBVIOUS DISCOMFORT DURING TRIAGE. Allan GUTIERREZ notes Patient is a 44-year-old white female with a history of chronic pain, hypothyroi dism, "uterine mass" who presents the emergency department with chief complaint of lower abdominal pain. She states she is at the end of her normal menstrual cycle and is having some light spotting as expected. She states that she is scheduled for an ablation of the uterine mass in the near future with her N[employer]RO MAN. She states recently she has had some fluctuations in her baseline temperatures and some alterations in her baseline blood pressures. She states today she started to have the lower pelvic/lower abdominal pain accompanied by these other findings, was concerned and came for evaluation. my notes 44-year-old female who arrives at this hospital around 2100 last night complains of diffuse abdominal swelling and fevers up to 99. Patient says she usually runs in 96 temperature and runs a blood pressure 110/72. She is followed by Dr. Reyna who is going to perform an endometrial ablation soon. The patient's ultrasound is read as normal by radiologist with a 8.6 x 4.4 x 6.7 cm normal shaped uterus. The patient's TSH is 14 and she reports she has been alternating between every other day 150 to 175 mcg of Synthroid. I saw this patient at 1120 and she is ready to go home. TRAVEL OUTSIDE OF THE [place] IN LAST 30 DAYS: No - Related Data Allergies/Adverse Reactions: Cephalosporins Allergy (Severe, Verified 08/12/19 08:12) Throat itching and swelling ciprofloxacin [From Cipro] Allergy (Severe, Verified 08/12/19 08:12) Blistering in mouth and throat ethyl alcohol Allergy (Severe, Verified 08/12/19 08:12) Shortness of Breath, cough, difficulty breathing fluticasone [From Flonase] Allergy (Severe, Verified 08/12/19 08:12) Migraine, nose bleed latex Allergy (Severe, Verified 08/12/19 08:12) RASH Penicillins Allergy (Severe, Verified 08/12/19 08:12) Throat swelling, difficulty breathing cephalexin [From Keflex] Allergy (Verified 08/12/19 08:12) Throat swelling, difficulty breathing dexlansoprazole [From Dexilant] Allergy (Verified 08/12/19 08:12) erythromycin base [From Erythrocin] Allergy (Verified 08/12/19 08:12) Hives fluoxetine [From Prozac] Allergy (Verified 08/12/19 08:12) metronidazole [From Flagyl] Allergy (Verified 08/12/19 08:12) Swelling of Throat prednisone Allergy (Verified 08/12/19 08:12) Tachycardia red dye Allergy (Verified 08/12/19 08:12) sertraline [From Zoloft] Allergy (Verified 08/12/19 08:12) sodium ferric gluconate complex [From Ferrlecit] Allergy (Verified 08/12/19 08:12) sucrose [From Ferrlecit] Allergy (Verified 08/12/19 08:12) aspirin Adverse Reaction (Verified 08/12/19 08:12) N&V Sulfa (Sulfonamide Antibiotics) Adverse Reaction (Verified 08/12/19 08:12) See Comments IV dye Allergy (Uncoded 08/12/19 08:12) arrhythmia vitamin B1 Allergy (Uncoded 08/12/19 08:12) Past Medical History - General Information source: Patient - Social History Smoking Status: Current Every Day Smoker Cigarette use (# per day): Yes Chew tobacco use (# tins/day): No Smoking Education Provided: Yes Frequency of alcohol use: None Drug Abuse: None Lives with: Family Family History: Reviewed & Not Pertinent, Malignancy Patient has suicidal ideation: No Patient has homicidal ideation: No - Past Medical History Cardiac Medical History: Reports: Hx Heart Attack - 2010, no stent, Hx Hypercholesterolemia, Hx Hypertension - HX OF, no meds Denies: Hx Coronary Artery Disease Pulmonary Medical History: Reports: Hx Asthma, Hx COPD - INHALERS Denies: Hx Bronchitis, Hx Pneumonia Neurological Medical History: Reports: Hx Migraine, Hx Seizures - NO MEDS - LAST 2013 - NOT CURRENT. Denies: Hx Cerebrovascular Accident Endocrine Medical History: Reports: Hx Diabetes Mellitus Type 2 Renal/ Medical History: Denies: Hx Peritoneal Dialysis GI Medical History: Reports: Hx Gastroesophageal Reflux Disease Musculoskeletal Medical History: Denies Hx Arthritis Psychiatric Medical History: Reports: Hx Depression Past Surgical History: Reports: Hx Abdominal Surgery, Hx Cholecystectomy, Hx Gynecologic Surgery, Hx Hysterectomy, Hx Nose Surgery, Hx Thyroid Surgery, Hx Tubal Ligation - Immunizations Immunizations up to date: Yes Hx Diphtheria, Pertussis, Tetanus Vaccination: No Review of Systems - Review of Systems Constitutional: See HPI, Fever, Weakness EENT: No symptoms reported Cardiovascular: No symptoms reported Respiratory: No symptoms reported Gastrointestinal: See HPI, Abdomen distended Genitourinary: No symptoms reported Female Genitourinary: See HPI Musculoskeletal: No symptoms reported Skin: No symptoms reported Hematologic/Lymphatic: No symptoms reported Neurological/Psychological: No symptoms reported Physical Exam - Vital signs Vitals: Temp Pulse BP Pulse Ox 98.7 F 75 137/84 H 100 08/11/19 22:53 08/11/19 22:53 08/11/19 22:53 08/11/19 22:53 Interpretation: Normal - General General appearance: Appears well - HEENT Head: Normocephalic, Atraumatic Eyes: Normal Pupils: PERRL Pharynx: Normal Neck: Normal - Respiratory Respiratory status: No respiratory distress Chest status: Nontender Breath sounds: Normal Chest palpation: Normal - Cardiovascular Rhythm: Regular Heart sounds: Normal auscultation Murmur: No - Abdominal Inspection: Normal Distension: No distension Bowel sounds: Normal Tenderness: Tender - Suprapubic Organomegaly: No organomegaly - Rectal Hemorrhoids: Other - deferred - Genitourinary Speculum exam: Other - deferred - Back Back: Normal - Extremities General upper extremity: Normal inspection, Nontender, Normal color, Normal ROM, Normal temperature General lower extremity: Normal inspection, Nontender, Normal color, Normal ROM, Normal temperature, Normal weight bearing. No: Keke's sign - Neurological Neuro grossly intact: Yes Cognition: Normal Orientation: AAOx4 [place] Coma Scale Eye Opening: Spontaneous [place] Coma Scale Verbal: Oriented [place] Coma Scale Motor: Obeys Commands [place] Coma Scale Total: 15 Speech: Normal Motor strength normal: LUE, RUE, LLE, RLE Sensory: Normal - Psychological Associated symptoms: Normal affect - Skin Skin Temperature: Warm Skin Moisture: Dry Course - Vital Signs Vital signs: Temp Pulse Resp BP Pulse Ox 97.9 F 71 16 101/71 98 08/12/19 11:24 08/12/19 11:24 08/12/19 11:24 08/12/19 11:24 08/12/19 11:24 - Laboratory Result Diagrams: 08/12/19 00:58 08/12/19 00:58 Laboratory results interpreted by me: 08/12/19 08/12/19 00:58 00:58 RDW 15.6 H TSH 12.00 H - Diagnostic Test Radiology reviewed: Reports reviewed Critical Care Note - Critical Care Note Total time excluding time spent on procedures (mins): 60 Discharge - Discharge Clinical Impression: TSH elevation Abdominal pain Qualifiers: Abdominal location: unspecified location Qualified Code(s): R10.9 - Unspecified abdominal pain Condition: Good Disposition: HOME, SELF-CARE Additional Instructions: Follow-up with Dr. Reyna return to ER for true emergencies ; take your Synthroid medicines as directed ;take Tylenol for fever and for pain as needed Referrals: ELIZABETH SMALLS MD [Primary Care Provider] - Follow up as needed
[2019-08-12 11:26] VITALS: BP 101/71
== END 2019-08-12 11:45 | disposition home or self-care (01) ==
LOC: ER 21:59
DX: R94.6 Abnormal results of thyroid function studies (principal); R10.9 Unspecified abdominal pain; M54.2 Cervicalgia; G89.29 Other chronic pain; R10.30 Lower abdominal pain, unspecified; R10.2 Pelvic and perineal pain; R19.00 Intra-abdominal and pelvic swelling, mass and lump, unspecified site; R50.9 Fever, unspecified; R53.1 Weakness; Z88.2 Allergy status to sulfonamides; Z88.8 Allergy status to other drugs, medicaments and biological substances; F17.210 Nicotine dependence, cigarettes, uncomplicated; I25.2 Old myocardial infarction; I10 Essential (primary) hypertension; J44.9 Chronic obstructive pulmonary disease, unspecified; E03.9 Hypothyroidism, unspecified; Z79.51 Long term (current) use of inhaled steroids
CPT/HCPCS: 36415; 76830; 80053; 81001; 83690; 84443; 84703; 85025; 93976; 99285

== ENCOUNTER 2019-08-14 15:15 | Emergency (ER) | payer BC ==
[2019-08-14 15:36] VITALS: BP 120/83
--- NOTE | 2019-08-14 16:30 | ER Document Report ---
HPI - HPI Time Seen by Provider: 08/14/19 16:18 Pain Level: 3 Notes: 44-year-old female patient presenting to the emergency department with complaints of sore throat. She states she was seen at the urgent care earlier where they did a throat swab that was negative for strep. She states they started her on antibiotics and told her that a throat culture was pending. Patient reports that she wants to get a second opinion to see if she should start the antibiotics. She is concerned because she takes Tums multiple times daily and she states that these can interact with the antibiotics according to the pharmacist. - REPRODUCTIVE Reproductive: DENIES: : Past Medical History - General Information source: Patient - Social History Smoking Status: Current Every Day Smoker Chew tobacco use (# tins/day): No Frequency of alcohol use: None Drug Abuse: None Family History: Reviewed & Not Pertinent, Malignancy Patient has homicidal ideation: No - Past Medical History Cardiac Medical History: Reports: Hx Heart Attack - 2009, no stent, Hx Hypercholesterolemia, Hx Hypertension - HX OF, no meds Denies: Hx Coronary Artery Disease Pulmonary Medical History: Reports: Hx Asthma, Hx COPD - INHALERS Denies: Hx Bronchitis, Hx Pneumonia Neurological Medical History: Reports: Hx Migraine, Hx Seizures - NO MEDS - LAST 2013 - NOT CURRENT. Denies: Hx Cerebrovascular Accident Endocrine Medical History: Reports: Hx Diabetes Mellitus Type 2 Renal/ Medical History: Denies: Hx Peritoneal Dialysis GI Medical History: Reports: Hx Gastroesophageal Reflux Disease Musculoskeletal Medical History: Denies Hx Arthritis Psychiatric Medical History: Reports: Hx Depression Past Surgical History: Reports: Hx Abdominal Surgery, Hx Cholecystectomy, Hx Gynecologic Surgery, Hx Hysterectomy, Hx Nose Surgery, Hx Thyroid Surgery, Hx Tubal Ligation - Immunizations Immunizations up to date: Yes Hx Diphtheria, Pertussis, Tetanus Vaccination: No Vertical Provider Document - CONSTITUTIONAL Notes: PHYSICAL EXAMINATION: GENERAL: Well-appearing, well-nourished and in no acute distress. HEAD: Atraumatic, normocephalic. EYES: Pupils equal round extraocular movements intact, conjunctiva are normal. ENT: Nares patent, oropharynx clear, nonerythematous, no exudates noted, no tonsillar swelling noted. NECK: Normal range of motion LUNGS: No respiratory distress Musculoskeletal: Normal range of motion NEUROLOGICAL: Normal speech, normal gait. PSYCH: Normal mood, normal affect. SKIN: Warm, Dry, normal turgor, no rashes or lesions noted. - INFECTION CONTROL TRAVEL OUTSIDE OF THE [place] IN LAST 30 DAYS: No Course - Re-evaluation Re-evalutation: Patient appears well, nontoxic, patient reassured to please follow the advice of the pharmacist. I did offer to swab patient's throat for strep, patient declines this. Patient discharged home at this time. - Vital Signs Vital signs: Temp Pulse Resp BP Pulse Ox 98.6 F 89 14 120/83 100 08/14/19 15:35 08/14/19 15:35 08/14/19 15:35 08/14/19 15:35 08/14/19 15:35 Discharge - Discharge Clinical Impression: Sore throat Condition: Stable Disposition: HOME, SELF-CARE Additional Instructions: Please take medications as prescribed by the provider at the urgent care. Please also follow the pharmacist's recommendations regarding your antibiotics and your Tums. Return to the emergency department for any new or life- threatening concerns. Referrals: ELIZABETH SMALLS MD [Primary Care Provider] - Follow up as needed
== END 2019-08-14 16:31 | disposition home or self-care (01) ==
LOC: ER 15:15
DX: J02.9 Acute pharyngitis, unspecified (principal); F17.200 Nicotine dependence, unspecified, uncomplicated; I10 Essential (primary) hypertension; J44.9 Chronic obstructive pulmonary disease, unspecified; E11.9 Type 2 diabetes mellitus without complications; K21.9 Gastro-esophageal reflux disease without esophagitis; Z79.899 Other long term (current) drug therapy
CPT/HCPCS: 99282

== ENCOUNTER 2019-08-15 19:59 | Emergency (ER) | payer BC ==
--- NOTE | 2019-08-15 21:08 | ER Document Report ---
ED Medical Screen (RME) - General Chief Complaint: Palpitations Stated Complaint: CHEST PRESSURE/HEART PALPITATIONS Time Seen by Provider: 08/15/19 21:01 Primary Care Provider: ELIZABETH SMALLS MD [Primary Care Provider] - Follow up as needed Mode of Arrival: Ambulatory Information source: Patient Notes: Patient presents complaining of palpitations today. Patient states that she has had problems with her stomach and gas. Patient states when she has gas discomfort it makes her short of breath. Patient states that she has had some mild nausea. Patient states that her temperature fluctuates from 96-99 when she has a rapid temperature fluctuations and makes her feel lightheaded. Patient states that she has been on omeprazole which is caused her TSH to increase to 12. Patient states that she recently had her levothyroxine adjusted in which she is alternating between 150 and 175 mcg a day. Patient reports chest pain only when she is having gas discomfort. I have greeted and performed a rapid initial assessment of this patient. A comprehensive ED assessment and evaluation of the patient, analysis of test results and completion of the medical decision making process will be conducted by additional ED providers. TRAVEL OUTSIDE OF THE [place] IN LAST 30 DAYS: No - Related Data Allergies/Adverse Reactions: Cephalosporins Allergy (Severe, Verified 08/12/19 08:12) Throat itching and swelling ciprofloxacin [From Cipro] Allergy (Severe, Verified 08/12/19 08:12) Blistering in mouth and throat ethyl alcohol Allergy (Severe, Verified 08/12/19 08:12) Shortness of Breath, cough, difficulty breathing fluticasone [From Flonase] Allergy (Severe, Verified 08/12/19 08:12) Migraine, nose bleed latex Allergy (Severe, Verified 08/12/19 08:12) RASH Penicillins Allergy (Severe, Verified 08/12/19 08:12) Throat swelling, difficulty breathing cephalexin [From Keflex] Allergy (Verified 08/12/19 08:12) Throat swelling, difficulty breathing dexlansoprazole [From Dexilant] Allergy (Verified 08/12/19 08:12) erythromycin base [From Erythrocin] Allergy (Verified 08/12/19 08:12) Hives fluoxetine [From Prozac] Allergy (Verified 08/12/19 08:12) metronidazole [From Flagyl] Allergy (Verified 08/12/19 08:12) Swelling of Throat prednisone Allergy (Verified 08/12/19 08:12) Tachycardia red dye Allergy (Verified 08/12/19 08:12) sertraline [From Zoloft] Allergy (Verified 08/12/19 08:12) sodium ferric gluconate complex [From Ferrlecit] Allergy (Verified 08/12/19 08:12) sucrose [From Ferrlecit] Allergy (Verified 08/12/19 08:12) aspirin Adverse Reaction (Verified 08/12/19 08:12) N&V Sulfa (Sulfonamide Antibiotics) Adverse Reaction (Verified 08/12/19 08:12) See Comments IV dye Allergy (Uncoded 08/12/19 08:12) arrhythmia vitamin B1 Allergy (Uncoded 08/12/19 08:12) Home Medications: Synthroid. Omeprozole. B-1 liquid. D-3 5,000u. Folate 100mg. Tums 7tabs/day. Colace Past Medical History - Social History Frequency of alcohol use: None Drug Abuse: None Family history: None - Past Medical History Cardiac Medical History: Reports: Hx Heart Attack - 2009, no stent, Hx Hypercholesterolemia, Hx Hypertension - HX OF, no meds Denies: Hx Coronary Artery Disease Pulmonary Medical History: Reports: Hx Asthma, Hx COPD - INHALERS Denies: Hx Bronchitis, Hx Pneumonia Neurological Medical History: Reports: Hx Migraine, Hx Seizures - NO MEDS - LAST 2013 - NOT CURRENT. Denies: Hx Cerebrovascular Accident Endocrine Medical History: Reports: Hx Diabetes Mellitus Type 2 Renal/ Medical History: Denies: Hx Peritoneal Dialysis GI Medical History: Reports: Hx Gastroesophageal Reflux Disease Musculoskeltal Medical History: Denies Hx Arthritis Psychiatric Medical History: Reports: Hx Depression Past Surgical History: Reports: Hx Abdominal Surgery, Hx Cholecystectomy, Hx Gynecologic Surgery, Hx Hysterectomy, Hx Nose Surgery, Hx Thyroid Surgery, Hx Tubal Ligation - Immunizations Immunizations up to date: Yes Hx Diphtheria, Pertussis, Tetanus Vaccination: No Physical Exam - Vital signs Vitals: Temp Pulse Resp BP Pulse Ox 97.5 F 85 20 141/95 H 100 08/15/19 20:10 08/15/19 20:10 08/15/19 20:10 08/15/19 20:10 08/15/19 20:10 - Respiratory Respiratory status: No respiratory distress Breath sounds: Normal - Cardiovascular Rhythm: Regular Heart sounds: S1 appreciated, S2 appreciated Murmur: No Course - Vital Signs Vital signs: Temp Pulse Resp BP Pulse Ox 97.5 F 85 20 141/95 H 100 08/15/19 20:10 08/15/19 20:10 08/15/19 20:10 08/15/19 20:10 08/15/19 20:10 Doctor's Discharge - Discharge Referrals: ELIZABETH SMALLS MD [Primary Care Provider] - Follow up as needed
--- NOTE | 2019-08-15 21:42 | RADIOLOGY REPORT (SQ) ---
EXAM DESCRIPTION: XR CHEST 1 VIEW COMPLETED DATE/TME: 08/15/2019 21:06 CLINICAL INDICATION: 44-year-old female with palpitations. TECHNIQUE: Single view, AP portable chest was obtained. COMPARISON: 05/09/2019. FINDINGS: Unremarkable cardiac and mediastinal silhouette. Heart size is normal. Lungs are clear without focal opacity, pneumothorax or pleural effusions. The visualized bones are within normal limits. IMPRESSION: No acute cardiopulmonary abnormalities.
[2019-08-16 00:04] LABS: ABSOLUTE BASOPHILS # (AUTO) 0.1 10^3/uL (0.0-0.2); ABSOLUTE EOSINOPHILS # (AUTO) 0.3 10^3/uL (0.0-0.6); ABSOLUTE LYMPHOCYTES (AUTO) 3.5 10^3/uL (0.5-4.7); ABSOLUTE MONOCYTES (AUTO) 0.6 10^3/uL (0.1-1.4); ABSOLUTE NEUT (AUTO) 3.8 10^3/uL (1.7-8.2); BASOPHILS % (AUTO) 0.9 % (0-2); EOSINOPHILS % (AUTO) 3.5 % (0-6); HEMATOCRIT 44.1 % (36.0-47.0); HEMOGLOBIN 15.3 g/dL (12.0-15.5); LYMPHOCYTES % (AUTO) 42.1 % (13-45); MEAN CORPUSCULAR HEMOGLOBIN 32.6 pg (27.0-33.4); MEAN CORPUSCULAR HGB CONC 34.7 g/dL (32.0-36.0); MEAN CORPUSCULAR VOLUME 94 fl (80-97); MONOCYTES % (AUTO) 7.4 % (3-13); PLATELET COUNT 206 10^3/uL (150-450); RED BLOOD COUNT 4.69 10^6/uL (3.72-5.28); RED CELL DISTRIBUTION WIDTH 15.4 % (11.5-14.0); SEGMENTED NEUTROPHILS % (AUTO) 46.1 % (42-78); TOTAL CELLS COUNTED % (AUTO) 100 %; WHITE BLOOD COUNT 8.2 10^3/uL (4.0-10.5)
[2019-08-16 00:14] LABS: ALBUMIN 4.9 g/dL (3.5-5.0); ALKALINE PHOSPHATASE 56 U/L (38-126); ANION GAP 7 (5-19); ASPARTATE AMINO TRANSFERASE 18 U/L (14-36); BILIRUBIN,TOTAL 0.3 mg/dL (0.2-1.3); BLOOD UREA NITROGEN 10 mg/dL (7-20); CALCIUM 10.3 mg/dL (8.4-10.2); CARBON DIOXIDE 28 mmol/L (22-30); CHLORIDE 103 mmol/L (98-107); GLUCOSE 98 mg/dL (75-110); POTASSIUM 4.1 mmol/L (3.6-5.0); TOTAL PROTEIN 7.8 g/dL (6.3-8.2)
[2019-08-16 00:31] LABS: FREE T3 2.4 pg/mL (2.77-5.27); FREE T4 (FREE THYROXINE) 1.38 ng/dL (0.78-2.19)
[2019-08-16 00:44] LABS: THYROID STIMULATING HORMONE 9.79 uIU/mL (0.47-4.68)
--- NOTE | 2019-08-16 02:28 | EKG REPORT ---
SEVERITY:- ABNORMAL ECG - SINUS RHYTHM FIRST DEGREE AV BLOCK : Confirmed by: Nicole Rodriguez MD 16-Aug-2019 02:27:26
--- NOTE | 2019-08-16 03:34 | ER Document Report ---
ED Cardiac - General Chief Complaint: Palpitations Stated Complaint: CHEST PRESSURE/HEART PALPITATIONS Time Seen by Provider: 08/15/19 21:01 Primary Care Provider: ELIZABETH SMALLS MD [Primary Care Provider] - 08/16/19 Mode of Arrival: Ambulatory Information source: Patient Notes: 44-year-old female presented to ED for complaint of palpitations earlier in the day. She states she has a problem with gas and stomach pain. She states when she gets to gas she gets very short of breath. Patient stated that her temperature fluctuates up and down and this makes her palpitations worse. She states her TSH has been been up to 12 and is on levothyroxine but takes her GERD medicine and this affects her TSH levels. Patient was seen in triage and labs x-ray and cardiac work-up was ordered. TRAVEL OUTSIDE OF THE [place] IN LAST 30 DAYS: No - HPI Patient complains to provider of: Palpitations Is the pain a: Chronic problem - GERD, thyroid problems, Quality of pain: Other - GERD palpitations thyroid problems Chest pain radiation location: None Severity now: None Pain level currently: Denies Cardiac risk factors: Hypertension, Smoker, Dyslipidemia, Hx ND Positive cardiac history: No Associated symptoms: Heartburn - GERD thyroid problems Exacerbated by: Other - Thyroid levels the way she was taking her medications reflux Relieved by: Antacids Similar symptoms previously: Yes Recently seen / treated by doctor: Yes - Related Data Allergies/Adverse Reactions: Cephalosporins Allergy (Severe, Verified 08/12/19 08:12) Throat itching and swelling ciprofloxacin [From Cipro] Allergy (Severe, Verified 08/12/19 08:12) Blistering in mouth and throat ethyl alcohol Allergy (Severe, Verified 08/12/19 08:12) Shortness of Breath, cough, difficulty breathing fluticasone [From Flonase] Allergy (Severe, Verified 08/12/19 08:12) Migraine, nose bleed latex Allergy (Severe, Verified 08/12/19 08:12) RASH Penicillins Allergy (Severe, Verified 08/12/19 08:12) Throat swelling, difficulty breathing cephalexin [From Keflex] Allergy (Verified 08/12/19 08:12) Throat swelling, difficulty breathing dexlansoprazole [From Dexilant] Allergy (Verified 08/12/19 08:12) erythromycin base [From Erythrocin] Allergy (Verified 08/12/19 08:12) Hives fluoxetine [From Prozac] Allergy (Verified 08/12/19 08:12) metronidazole [From Flagyl] Allergy (Verified 08/12/19 08:12) Swelling of Throat prednisone Allergy (Verified 08/12/19 08:12) Tachycardia red dye Allergy (Verified 08/12/19 08:12) sertraline [From Zoloft] Allergy (Verified 08/12/19 08:12) sodium ferric gluconate complex [From Ferrlecit] Allergy (Verified 08/12/19 08:12) sucrose [From Ferrlecit] Allergy (Verified 08/12/19 08:12) aspirin Adverse Reaction (Verified 08/12/19 08:12) N&V Sulfa (Sulfonamide Antibiotics) Adverse Reaction (Verified 08/12/19 08:12) See Comments IV dye Allergy (Uncoded 08/12/19 08:12) arrhythmia vitamin B1 Allergy (Uncoded 08/12/19 08:12) Home Medications: Synthroid. Omeprozole. B-1 liquid. D-3 5,000u. Folate 100mg. Tums 7tabs/day. Colace Past Medical History - General Information source: Patient - Social History Smoking Status: Current Every Day Smoker Frequency of alcohol use: None Drug Abuse: None Lives with: Family Family History: Reviewed & Not Pertinent, Malignancy - Past Medical History Cardiac Medical History: Reports: Hx Heart Attack - 2009, no stent, Hx Hypercholesterolemia, Hx Hypertension - HX OF, no meds Pulmonary Medical History: Reports: Hx Asthma, Hx COPD - INHALERS Denies: Hx Bronchitis, Hx Pneumonia Neurological Medical History: Reports: Hx Migraine, Hx Seizures - NO MEDS - LAST 2013 - NOT CURRENT. Denies: Hx Cerebrovascular Accident Endocrine Medical History: Reports: Hx Diabetes Mellitus Type 2 Renal/ Medical History: Denies: Hx Peritoneal Dialysis GI Medical History: Reports: Hx Gastroesophageal Reflux Disease Musculoskeletal Medical History: Denies Hx Arthritis Psychiatric Medical History: Reports: Hx Depression Past Surgical History: Reports: Hx Abdominal Surgery, Hx Cholecystectomy, Hx Gynecologic Surgery, Hx Hysterectomy, Hx Nose Surgery, Hx Thyroid Surgery, Hx Tubal Ligation - Immunizations Immunizations up to date: Yes Hx Diphtheria, Pertussis, Tetanus Vaccination: No Review of Systems - Review of Systems Constitutional: No symptoms reported EENT: No symptoms reported Cardiovascular: Palpitations, Other - States she has reflux and the pain is the reflux going up her chest. She states that her thyroid levels make her heart race. When she states she checks her pulse when it feels like her heart is racing and is usually in the 70s and 80s. denies: Chest pain Respiratory: No symptoms reported Gastrointestinal: Abdominal pain - Epigastric pain Genitourinary: No symptoms reported Female Genitourinary: No symptoms reported Musculoskeletal: No symptoms reported Skin: No symptoms reported Hematologic/Lymphatic: No symptoms reported Neurological/Psychological: No symptoms reported -: Yes All other systems reviewed and negative Physical Exam - Vital signs Vitals: Temp Pulse Resp BP Pulse Ox 97.5 F 85 20 141/95 H 100 08/15/19 20:10 08/15/19 20:10 08/15/19 20:10 08/15/19 20:10 08/15/19 20:10 Interpretation: Normal - General General appearance: Appears well, Alert - HEENT Head: Normocephalic, Atraumatic Eyes: Normal Pupils: PERRL - Respiratory Respiratory status: No respiratory distress Chest status: Nontender Breath sounds: Normal Chest palpation: Normal - Cardiovascular Rhythm: Regular Heart sounds: Normal auscultation Murmur: No - Abdominal Inspection: Normal Distension: No distension Bowel sounds: Normal Tenderness: Nontender Organomegaly: No organomegaly - Back Back: Normal, Nontender - Extremities General upper extremity: Normal inspection, Nontender, Normal color, Normal ROM, Normal temperature General lower extremity: Normal inspection, Nontender, Normal color, Normal ROM, Normal temperature, Normal weight bearing. No: Keke's sign - Neurological Neuro grossly intact: Yes Cognition: Normal Orientation: AAOx4 [place] Coma Scale Eye Opening: Spontaneous [place] Coma Scale Verbal: Oriented [place] Coma Scale Motor: Obeys Commands [place] Coma Scale Total: 15 Speech: Normal Motor strength normal: LUE, RUE, LLE, RLE Sensory: Normal - Psychological Associated symptoms: Normal affect, Normal mood - Skin Skin Temperature: Warm Skin Moisture: Dry Skin Color: Normal Course - Re-evaluation Re-evalutation: 08/16/19 10:00 Discussed labs and x-ray with patient. Patient stated that as long as her thyroid levels were going down and she was using her gas medicines as prescribed her pain was much less. She states the pain is already much less by the time I had seen the patient. She states mostly is just feels like there is fluttering in her chest and she gets very gassy and that is the gas pain that is in her chest not cardiac pain. Reviewed labs with patient and instructed her to follow-up with her primary care and resident care assistant as well as to follow-up with gastroenterology and possibly get an endoscopy if she continued to have this problem. - Vital Signs Vital signs: Temp Pulse Resp BP Pulse Ox 97.6 F 70 11 L 122/87 H 98 08/15/19 23:07 08/15/19 23:07 08/16/19 04:01 08/16/19 04:01 08/16/19 04:01 - Laboratory Result Diagrams: 08/15/19 23:51 08/15/19 23:51 Laboratory results interpreted by me: 08/15/19 08/15/19 08/15/19 23:51 23:51 23:51 RDW 15.4 H Calcium 10.3 H Magnesium 2.4 H TSH 9.79 H Free T3 pg/mL 2.40 L - Diagnostic Test Radiology reviewed: Image reviewed, Reports reviewed - EKG Interpretation by Me Additional EKG results interpreted by me: 08/16/19 10:00 EKG had already been read by cardiology by the time I saw the patient Discharge - Discharge Clinical Impression: Palpitations, TSH elevation Condition: Stable Disposition: HOME, SELF-CARE Additional Instructions: Palpitations (Irregular/Rapid Heartrate) Irregular or rapid heartbeat is called "palpitation." To diagnose the cause of palpitation, we have to "catch it in the act" with an EKG. Sinus Tachycardia: This is a rapid (but NORMAL) rhythm that can be due to fever, pain, anxiety, lack of sleep, over-exertion, or drugs. Cold medications, caffeine, and diet pills are particularly likely to cause tachycardia. Usually, all that's required is rest, reassurance, and avoiding caffeine, alcohol, nicotine, and unnecessary medicines. Paroxysmal Atrial Tachycardia (PAT): This abnormally rapid heartbeat is caused by a "short circuit" in the electrical system of the heart. It is not dangerous, unless other heart disease is present. These attacks of PAT may occur occasionally for years. Medication is available for treatment. Paroxysmal Atrial Fibrillation or Atrial Flutter: This is irregular electrical activity in the upper heart chamber. These abnormal rhythms often occur with valve disease or in hearts damaged by hardening of the arteries. These rhythms usually require further testing, for example a cardiac echo. Premature Beats: Extra beats occur more commonly after caffeine, nicotine, alcohol, cold pills, diet pills. Emotional stress or fatigue also provoke them. Extra beats are only dangerous when heart disease is present. They usually need no treatment. If they're frequent, or if evidence of heart disease develops, medication can be given to suppress them. If we were unable to "catch" the palpitations on EKG, you should try to get an EKG immediately if the symptoms begin again. Contact the physician at once if you develop persistent lightheadedness, shortness of breath, chest pain, or swelling of the ankles. Discussed your labs x-ray and exams with you. Please take all the labs with you to your multiple appointments today so that they can all see the results from today's labs. Please take your medications as they are prescribed. Please eat the diet that your provider has provided for you. FOLLOW-UP CARE: If you have been referred to a physician for follow-up care, call the [facility] office for an appointment as you were instructed or within the next two days. If you experience worsening or a significant change in your symptoms, notify the physician immediately or return to the Emergency Department at any time for re-evaluation. Referrals: ELIZABETH SMALLS MD [Primary Care Provider] - 08/16/19
[2019-08-16 04:21] VITALS: BP 122/87
== END 2019-08-16 04:22 | disposition home or self-care (01) ==
LOC: ER 19:59
DX: R00.2 Palpitations (principal); K21.9 Gastro-esophageal reflux disease without esophagitis; R79.89 Other specified abnormal findings of blood chemistry; R14.1 Gas pain; R10.13 Epigastric pain; R14.3 Flatulence; I10 Essential (primary) hypertension; I25.2 Old myocardial infarction; J44.9 Chronic obstructive pulmonary disease, unspecified; R06.02 Shortness of breath; E11.9 Type 2 diabetes mellitus without complications; F17.200 Nicotine dependence, unspecified, uncomplicated; Z79.899 Other long term (current) drug therapy; Z88.1 Allergy status to other antibiotic agents; Z88.8 Allergy status to other drugs, medicaments and biological substances; Z91.040 Latex allergy status; Z91.048 Other nonmedicinal substance allergy status; Z91.018 Allergy to other foods; Z91.041 Radiographic dye allergy status
CPT/HCPCS: 36415; 71045; 80053; 83735; 84439; 84443; 84481; 84484; 85025; 93005; 93010; 99285

== ENCOUNTER 2019-08-19 02:25 | Emergency (ER) | payer BC ==
--- NOTE | 2019-08-19 05:11 | RADIOLOGY REPORT (SQ) ---
Chest 2 view on 08/19/2019 at 4:32 AM CLINICAL INDICATION: Chest pain COMPARISON: 08/15/2019 FINDINGS: The lungs are clear. Cardiac, hilar and mediastinal contours are within normal limits. Pulmonary vascularity is within normal limits. No bony abnormality is noted. IMPRESSION: No active disease.
[2019-08-19 05:41] LABS: ABSOLUTE BASOPHILS # (AUTO) 0.1 10^3/uL (0.0-0.2); ABSOLUTE EOSINOPHILS # (AUTO) 0.2 10^3/uL (0.0-0.6); ABSOLUTE LYMPHOCYTES (AUTO) 2.8 10^3/uL (0.5-4.7); ABSOLUTE MONOCYTES (AUTO) 0.5 10^3/uL (0.1-1.4); ABSOLUTE NEUT (AUTO) 3.2 10^3/uL (1.7-8.2); BASOPHILS % (AUTO) 1.1 % (0-2); EOSINOPHILS % (AUTO) 3.5 % (0-6); HEMATOCRIT 39.3 % (36.0-47.0); HEMOGLOBIN 13.7 g/dL (12.0-15.5); MEAN CORPUSCULAR HEMOGLOBIN 32.4 pg (27.0-33.4); MEAN CORPUSCULAR HGB CONC 34.9 g/dL (32.0-36.0); MEAN CORPUSCULAR VOLUME 93 fl (80-97); MONOCYTES % (AUTO) 7.5 % (3-13); PLATELET COUNT 171 10^3/uL (150-450); RED BLOOD COUNT 4.23 10^6/uL (3.72-5.28); RED CELL DISTRIBUTION WIDTH 15.1 % (11.5-14.0); SEGMENTED NEUTROPHILS % (AUTO) 46.9 % (42-78); TOTAL CELLS COUNTED % (AUTO) 100 %; WHITE BLOOD COUNT 6.8 10^3/uL (4.0-10.5)
[2019-08-19 06:03] LABS: ALKALINE PHOSPHATASE 52 U/L (38-126); ANION GAP 5 (5-19); ASPARTATE AMINO TRANSFERASE 15 U/L (14-36); BILIRUBIN,TOTAL 0.2 mg/dL (0.2-1.3); BLOOD UREA NITROGEN 14 mg/dL (7-20); CARBON DIOXIDE 27 mmol/L (22-30); CHLORIDE 105 mmol/L (98-107); CREATINE KINASE 72 U/L (30-135); GLUCOSE 94 mg/dL (75-110); POTASSIUM 3.6 mmol/L (3.6-5.0); TOTAL PROTEIN 6.4 g/dL (6.3-8.2)
[2019-08-19 06:20] LABS: CREATINE KINASE MB 0.33 ng/mL (<4.55); TROPONIN I < 0.012 ng/mL
--- NOTE | 2019-08-19 06:54 | ER Document Report ---
Entered by JIM THOMPSON SCRIBE 08/19/19 0637 Acting as scribe for:ARMANDO PARHAM MD ED General - General Chief Complaint: Chest Pressure Stated Complaint: HEADACHE/CHEST PAIN/DIZZY Time Seen by Provider: 08/19/19 06:10 Primary Care Provider: ELIZABETH SMALLS MD [Primary Care Provider] - Follow up as needed Information source: Patient Notes: This 44 year old female patient presents to the emergency department today with complaints of pressure in her chest. Patient states she is used to feeling pressure in her chest, but it has been present more than usual lately. Patient reports her blood pressure has been higher. Patient states she visited the ED x4 days ago for a sore throat and went to her Physician after, finding out she has tonsil stones that are not infected. Patient states she also found out she has hyperthyroidism x1.5 weeks ago. Patient reports nausea and denies vomiting or diarrhea. TRAVEL OUTSIDE OF THE [place] IN LAST 30 DAYS: No - Related Data Allergies/Adverse Reactions: Cephalosporins Allergy (Severe, Verified 08/12/19 08:12) Throat itching and swelling ciprofloxacin [From Cipro] Allergy (Severe, Verified 08/12/19 08:12) Blistering in mouth and throat ethyl alcohol Allergy (Severe, Verified 08/12/19 08:12) Shortness of Breath, cough, difficulty breathing fluticasone [From Flonase] Allergy (Severe, Verified 08/12/19 08:12) Migraine, nose bleed latex Allergy (Severe, Verified 08/12/19 08:12) RASH Penicillins Allergy (Severe, Verified 08/12/19 08:12) Throat swelling, difficulty breathing cephalexin [From Keflex] Allergy (Verified 08/12/19 08:12) Throat swelling, difficulty breathing dexlansoprazole [From Dexilant] Allergy (Verified 08/12/19 08:12) erythromycin base [From Erythrocin] Allergy (Verified 08/12/19 08:12) Hives fluoxetine [From Prozac] Allergy (Verified 08/12/19 08:12) metronidazole [From Flagyl] Allergy (Verified 08/12/19 08:12) Swelling of Throat prednisone Allergy (Verified 08/12/19 08:12) Tachycardia red dye Allergy (Verified 08/12/19 08:12) sertraline [From Zoloft] Allergy (Verified 08/12/19 08:12) sodium ferric gluconate complex [From Ferrlecit] Allergy (Verified 08/12/19 08:12) sucrose [From Ferrlecit] Allergy (Verified 08/12/19 08:12) aspirin Adverse Reaction (Verified 08/12/19 08:12) N&V Sulfa (Sulfonamide Antibiotics) Adverse Reaction (Verified 08/12/19 08:12) See Comments IV dye Allergy (Uncoded 08/12/19 08:12) arrhythmia vitamin B1 Allergy (Uncoded 08/12/19 08:12) Home Medications: levothyroxine, omeprazole, tums, voitamin d, folaate, vitalin b1, Past Medical History - General Information source: Patient - Social History Smoking Status: Current Every Day Smoker Cigarette use (# per day): Yes Family History: Reviewed & Not Pertinent, Malignancy Patient has homicidal ideation: No - Past Medical History Cardiac Medical History: Reports: Hx Heart Attack - 2009, no stent, Hx Hypercholesterolemia, Hx Hypertension - HX OF, no meds Pulmonary Medical History: Reports: Hx Asthma, Hx COPD - INHALERS Neurological Medical History: Reports: Hx Migraine, Hx Seizures - NO MEDS - LAST 2013 - NOT CURRENT Endocrine Medical History: Reports: Hx Diabetes Mellitus Type 2, Hx Hyperthyroidism GI Medical History: Reports: Hx Gastroesophageal Reflux Disease Psychiatric Medical History: Reports: Hx Depression Past Surgical History: Reports: Hx Abdominal Surgery, Hx Cholecystectomy, Hx Gynecologic Surgery, Hx Hysterectomy, Hx Nose Surgery, Hx Thyroid Surgery, Hx Tubal Ligation - Immunizations Immunizations up to date: Yes Hx Diphtheria, Pertussis, Tetanus Vaccination: No Review of Systems - Review of Systems Constitutional: No symptoms reported EENT: See HPI Cardiovascular: See HPI, Other - Chest Pressure Respiratory: No symptoms reported Gastrointestinal: See HPI, Nausea. denies: Diarrhea, Vomiting Genitourinary: No symptoms reported Female Genitourinary: No symptoms reported Musculoskeletal: No symptoms reported Skin: No symptoms reported Hematologic/Lymphatic: No symptoms reported Neurological/Psychological: No symptoms reported -: Yes All other systems reviewed and negative Physical Exam - Vital signs Vitals: Temp Pulse Resp BP Pulse Ox 97.7 F 71 16 139/88 H 100 08/19/19 02:36 08/19/19 02:36 08/19/19 02:36 08/19/19 02:36 08/19/19 02:36 - General General appearance: Appears well, Alert - HEENT Head: Normocephalic, Atraumatic Eyes: Normal Pupils: PERRL - Respiratory Respiratory status: No respiratory distress Chest status: Nontender Breath sounds: Normal Chest palpation: Normal - Cardiovascular Rhythm: Regular Heart sounds: Normal auscultation Murmur: No - Abdominal Inspection: Normal Distension: No distension Bowel sounds: Normal Tenderness: Nontender - Extremities General upper extremity: Normal inspection. No: Edema General lower extremity: Normal inspection. No: Edema - Neurological Neuro grossly intact: Yes Cognition: Normal Orientation: AAOx4 Speech: Normal - Psychological Associated symptoms: Normal affect, Normal mood - Skin Skin Temperature: Warm Skin Moisture: Dry Skin Color: Normal Course - Re-evaluation Re-evalutation: 08/19/19 06:50 Patient resting comfortably. Patient requests an answer for why she is having chest pain and could it be her acid reflux. I described the patient that her EKG has been normal and no change since the previous EKG of 3 days ago. Also explained the patient she has normal elect electrolytes as well as normal tropo rod which is been consistently normal in the past several visits that she has had to the emergency department. At this time I have no indication the patient is having an acute coronary syndrome or having any signs of an acute MD. Most likely patient's problems is related to her her acid reflux which she takes Tums. Patient also has been on omeprazole but states she is backed off taking it because of malabsorption numbers levothyroxine. - Vital Signs Vital signs: Temp Pulse Resp BP Pulse Ox 97.7 F 71 14 116/73 98 08/19/19 02:36 08/19/19 02:36 08/19/19 06:01 08/19/19 06:01 08/19/19 06:01 08/19/19 06:51 Vital signs stable - Laboratory Result Diagrams: 08/19/19 04:57 08/19/19 04:57 Laboratory results interpreted by me: 08/19/19 04:57 RDW 15.1 H - Diagnostic Test Radiology reviewed: Image reviewed - Chest x-ray read by radiology shows no acute process., Reports reviewed Radiology results interpreted by me: 08/19/19 06:51 Chest x-ray no acute process. - EKG Interpretation by Me Additional EKG results interpreted by me: 08/19/19 06:51 Twelve-lead EKG shows normal sinus rhythm rate of 72 first-degree AV block no acute changes. Discharge - Discharge Clinical Impression: Chest pain due to GERD Condition: Stable Disposition: HOME, SELF-CARE Instructions: Reflux Disease (GERD) ([facility]) Additional Instructions: Reflux Disease (GERD) Gastro-Esophageal Reflux Disease (GERD) is caused by stomach acid refluxing back up into the esophagus. The valve at the end of the esophagus may be weak. This is common in persons with a hiatal hernia. GERD symptoms can include indigestion, chest pain, heartburn, or food "sticking." Certain foods, alcohol, and aspirin can make GERD worse. Treatment depends on the severity. Usually, antacids or acid-suppressing me dicines are used. When the esophagus is acutely inflamed, the physician will often prescribe membrane-protective drugs such as Carafate. Some patients benefit from medication such as Reglan that tightens the valve at the top of the stomach. Avoid those foods that bring on your symptoms. For many people, these foods are coffee, chocolate, onions, garlic, and carbonated drinks. Don't use alcohol, aspirin, caffeine, or tobacco. Don't eat late at night -- within 4 hours of bedtime. Don't over-eat. If necessary, elevate the head of your bed about 4 inches so that stomach acid will not roll up into your esophagus. Call the doctor if you develop severe chest pain, inability to swallow fl uids, fever, or worsening symptoms. Continue to take your Tums as you are taking. And whenever possible and you get your thyroid metabolism in order you may consider restarting your omeprazole. Follow-up with your Dr. Sargent regarding when to restart taking omeprazole. Referrals: ELIZABETH SMALLS MD [Primary Care Provider] - Follow up as needed I personally performed the services described in the documentation, reviewed and edited the documentation which was dictated to the scribe in my presence, and it accurately records my words and actions.
[2019-08-19 07:10] VITALS: BP 123/85
--- NOTE | 2019-08-19 12:06 | EKG REPORT ---
SEVERITY:- ABNORMAL ECG - SINUS RHYTHM FIRST DEGREE AV BLOCK : Confirmed by: Nicole Rodriguez MD 19-Aug-2019 12:05:40
== END 2019-08-19 07:12 | disposition home or self-care (01) ==
LOC: ER 02:25
DX: K21.9 Gastro-esophageal reflux disease without esophagitis (principal); I44.0 Atrioventricular block, first degree; F17.210 Nicotine dependence, cigarettes, uncomplicated; E05.90 Thyrotoxicosis, unspecified without thyrotoxic crisis or storm; R11.0 Nausea; J44.9 Chronic obstructive pulmonary disease, unspecified; I25.2 Old myocardial infarction; Z79.899 Other long term (current) drug therapy; Z86.79 Personal history of other diseases of the circulatory system; Z90.49 Acquired absence of other specified parts of digestive tract; Z98.51 Tubal ligation status; Z90.710 Acquired absence of both cervix and uterus; K90.9 Intestinal malabsorption, unspecified
CPT/HCPCS: 36415; 71046; 80053; 82550; 82553; 84484; 85025; 93005; 93010; 99284

== ENCOUNTER 2019-08-23 12:46 | Emergency (ER) | payer BC ==
--- NOTE | 2019-08-23 13:37 | ER Document Report ---
ED Medical Screen (RME) - General Chief Complaint: Other Stated Complaint: LEFT SIDE PAIN/BURNING FACE Time Seen by Provider: 08/23/19 13:22 Primary Care Provider: ELIZABETH SMALLS MD [Primary Care Provider] - Follow up as needed TRAVEL OUTSIDE OF THE [place] IN LAST 30 DAYS: No - HPI Notes: 08/23/19 13:33 44-year-old female with a history of GERD, hypothyroidism, sciatica, previous NE in 2009 presents to the emergency with left-sided burning sensation down her left arm, neck, scapula and face that started last night, has been constant. Patient does have Dr. 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 Vuong, neurologist for her sciatica and peripheral neuropathies in her lower back and in her cervical spine, she states that these sensations are different. Patient is a pack a day smoker over the last 30 years. Patient states sometimes she gets a burning sensation when her thyroid levels are off. I have greeted and performed a rapid initial assessment of this patient. A comprehensive ED assessment and evaluation of the patient, analysis of test results and completion of the medical decision making process will be conducted by additional ED providers. PHYSICAL EXAMINATION: GENERAL: Well-appearing, well-nourished and in no acute distress. HEAD: Atraumatic, normocephalic. EYES: Pupils equal round extraocular movements intact, conjunctiva are normal. NECK: Normal range of motion CV: s1, s2 regular LUNGS: No respiratory distress NEUROLOGICAL: Normal speech, normal gait. +2 to bilateral upper extremities equally 08/23/19 13:35 - Related Data Allergies/Adverse Reactions: Cephalosporins Allergy (Severe, Verified 08/12/19 08:12) Throat itching and swelling ciprofloxacin [From Cipro] Allergy (Severe, Verified 08/12/19 08:12) Blistering in mouth and throat ethyl alcohol Allergy (Severe, Verified 08/12/19 08:12) Shortness of Breath, cough, difficulty breathing fluticasone [From Flonase] Allergy (Severe, Verified 08/12/19 08:12) Migraine, nose bleed latex Allergy (Severe, Verified 08/12/19 08:12) RASH Penicillins Allergy (Severe, Verified 08/12/19 08:12) Throat swelling, difficulty breathing cephalexin [From Keflex] Allergy (Verified 08/12/19 08:12) Throat swelling, difficulty breathing dexlansoprazole [From Dexilant] Allergy (Verified 08/12/19 08:12) erythromycin base [From Erythrocin] Allergy (Verified 08/12/19 08:12) Hives fluoxetine [From Prozac] Allergy (Verified 08/12/19 08:12) metronidazole [From Flagyl] Allergy (Verified 08/12/19 08:12) Swelling of Throat prednisone Allergy (Verified 08/12/19 08:12) Tachycardia red dye Allergy (Verified 08/12/19 08:12) sertraline [From Zoloft] Allergy (Verified 08/12/19 08:12) sodium ferric gluconate complex [From Ferrlecit] Allergy (Verified 08/12/19 08:12) sucrose [From Ferrlecit] Allergy (Verified 08/12/19 08:12) aspirin Adverse Reaction (Verified 08/12/19 08:12) N&V Sulfa (Sulfonamide Antibiotics) Adverse Reaction (Verified 08/12/19 08:12) See Comments IV dye Allergy (Uncoded 08/12/19 08:12) arrhythmia vitamin B1 Allergy (Uncoded 08/12/19 08:12) Past Medical History - Social History Frequency of alcohol use: None Drug Abuse: None Family history: None - Past Medical History Cardiac Medical History: Reports: Hx Heart Attack - 2009, no stent, Hx Hypercholesterolemia, Hx Hypertension - HX OF, no meds Denies: Hx Coronary Artery Disease Pulmonary Medical History: Reports: Hx Asthma, Hx COPD - INHALERS Denies: Hx Bronchitis, Hx Pneumonia Neurological Medical History: Reports: Hx Migraine, Hx Seizures - NO MEDS - LAST 2013 - NOT CURRENT. Denies: Hx Cerebrovascular Accident Endocrine Medical History: Reports: Hx Diabetes Mellitus Type 2, Hx Hyperthyroidism Renal/ Medical History: Denies: Hx Peritoneal Dialysis GI Medical History: Reports: Hx Gastroesophageal Reflux Disease Musculoskeltal Medical History: Denies Hx Arthritis Psychiatric Medical History: Reports: Hx Depression Past Surgical History: Reports: Hx Abdominal Surgery, Hx Cholecystectomy, Hx Gynecologic Surgery, Hx Hysterectomy, Hx Nose Surgery, Hx Thyroid Surgery, Hx Tubal Ligation - Immunizations Immunizations up to date: Yes Hx Diphtheria, Pertussis, Tetanus Vaccination: No Physical Exam - Vital signs Vitals: Temp Pulse Resp BP 97.6 F 85 18 128/82 H 07/08/20 12:59 08/23/19 12:59 08/23/19 12:59 08/23/19 12:59 Course - Vital Signs Vital signs: Temp Pulse Resp BP Pulse Ox 97.6 F 85 18 128/82 H 08/23/19 12:59 08/23/19 12:59 08/23/19 12:59 08/23/19 12:59 Doctor's Discharge - Discharge Referrals: ELIZABETH SMALLS MD [Primary Care Provider] - Follow up as needed
[2019-08-23 14:26] LABS: ABSOLUTE EOSINOPHILS # (AUTO) 0.3 10^3/uL (0.0-0.6); ABSOLUTE MONOCYTES (AUTO) 0.4 10^3/uL (0.1-1.4); ABSOLUTE NEUT (AUTO) 3.7 10^3/uL (1.7-8.2); BASOPHILS % (AUTO) 0.7 % (0-2); EOSINOPHILS % (AUTO) 3.9 % (0-6); HEMATOCRIT 43.7 % (36.0-47.0); HEMOGLOBIN 15.7 g/dL (12.0-15.5); LYMPHOCYTES % (AUTO) 31.1 % (13-45); MEAN CORPUSCULAR HEMOGLOBIN 33.4 pg (27.0-33.4); MEAN CORPUSCULAR HGB CONC 35.8 g/dL (32.0-36.0); MEAN CORPUSCULAR VOLUME 93 fl (80-97); MONOCYTES % (AUTO) 5.7 % (3-13); PLATELET COUNT 168 10^3/uL (150-450); RED CELL DISTRIBUTION WIDTH 14.9 % (11.5-14.0); SEGMENTED NEUTROPHILS % (AUTO) 58.6 % (42-78); TOTAL CELLS COUNTED % (AUTO) 100 %; WHITE BLOOD COUNT 6.3 10^3/uL (4.0-10.5)
--- NOTE | 2019-08-23 14:35 | RADIOLOGY REPORT (SQ) ---
EXAM DESCRIPTION: CHEST SINGLE VIEW IMAGES COMPLETED DATE/TIME: 08/23/2019 2:18 pm REASON FOR STUDY: left arm burning pain COMPARISON: 08/19/2019 EXAM PARAMETERS: NUMBER OF VIEWS: One view. TECHNIQUE: Single frontal radiographic view of the chest acquired. RADIATION DOSE: NA LIMITATIONS: None. FINDINGS: LUNGS AND PLEURA: No opacities, masses or pneumothorax. No pleural effusion. MEDIASTINUM AND HILAR STRUCTURES: No masses. Contour normal. HEART AND VASCULAR STRUCTURES: Heart normal in size. Normal vasculature. BONES: No acute findings. HARDWARE: Cholecystectomy clips. OTHER: No other significant finding. IMPRESSION: NO ACUTE RADIOGRAPHIC FINDING IN THE CHEST. TECHNICAL DOCUMENTATION: JOB ID: [id number] 2010 [employer]- All Rights Reserved Reading location - IP/workstation name: [email or web address]
[2019-08-23 14:52] LABS: ALBUMIN 4.7 g/dL (3.5-5.0); ALKALINE PHOSPHATASE 52 U/L (38-126); ASPARTATE AMINO TRANSFERASE 18 U/L (14-36); BILIRUBIN,TOTAL 0.4 mg/dL (0.2-1.3); BLOOD UREA NITROGEN 11 mg/dL (7-20); CALCIUM 9.7 mg/dL (8.4-10.2); CARBON DIOXIDE 29 mmol/L (22-30); CREATINE KINASE 58 U/L (30-135); GLUCOSE 97 mg/dL (75-110); POTASSIUM 4.5 mmol/L (3.6-5.0); TOTAL PROTEIN 7.5 g/dL (6.3-8.2)
[2019-08-23 14:57] LABS: ANION GAP 5 (5-19); CHLORIDE 105 mmol/L (98-107)
[2019-08-23 15:05] LABS: CREATINE KINASE MB 0.25 ng/mL (<4.55)
[2019-08-23 15:07] LABS: TROPONIN I < 0.012 ng/mL
[2019-08-23 15:11] LABS: FREE T3 3.17 pg/mL (2.77-5.27)
[2019-08-23 15:25] LABS: THYROID STIMULATING HORMONE 2.36 uIU/mL (0.47-4.68)
--- NOTE | 2019-08-23 16:00 | ER Document Report ---
ED General - General Chief Complaint: Other Stated Complaint: LEFT SIDE PAIN/BURNING FACE Time Seen by Provider: 08/23/19 13:22 Primary Care Provider: ELIZABETH SMALLS MD [Primary Care Provider] - Follow up as needed Notes: 44-year-old female with past medical history of GERD, hypothyroidism, sciatica, cervical disc herniation and lumbar disc herniation and a previous [place] presents with left-sided arm burning and worsening facial tingling and burning. This has gotten worse in the last 2 days. Patient denies any chest pain or shortness of breath. Has concerns that it is her thyroid. She had a history of thyroid mass. Her last echo was 6 months ago[address] Dr. Downs. Smokes a pack a day. She is extremely hypervigilant about her symptoms. States that she normally has numbness and tingling on that side but has gotten worse in intensity and is spread more across to her her face. Also notes tingling of her tongue. States this developed last night. She did have an allergic reaction to Cristy 2 days ago. She has trigger point injections scheduled for her cervicalgia scheduled next week. But she came into the ER because her left arm burning pain was worse and spread across her face. She has Percocet at home which she does not take it she also has taken Ativan previously to help her symptoms. She is very cautious about taking medications together. States that her neurologist did not want to start her any nerve medication as they were uncertain as to how much her thyroid was playing into her symptoms. Most of her symptoms are along her back along the trapezius. She has good sensation on her face with the worsening tingling. TRAVEL OUTSIDE OF THE [place] IN LAST 30 DAYS: No - Related Data Allergies/Adverse Reactions: Cephalosporins Allergy (Severe, Verified 08/12/19 08:12) Throat itching and swelling ciprofloxacin [From Cipro] Allergy (Severe, Verified 08/12/19 08:12) Blistering in mouth and throat ethyl alcohol Allergy (Severe, Verified 08/12/19 08:12) Shortness of Breath, cough, difficulty breathing fluticasone [From Flonase] Allergy (Severe, Verified 08/12/19 08:12) Migraine, nose bleed latex Allergy (Severe, Verified 08/12/19 08:12) RASH Penicillins Allergy (Severe, Verified 08/12/19 08:12) Throat swelling, difficulty breathing cephalexin [From Keflex] Allergy (Verified 08/12/19 08:12) Throat swelling, difficulty breathing dexlansoprazole [From Dexilant] Allergy (Verified 08/12/19 08:12) erythromycin base [From Erythrocin] Allergy (Verified 08/12/19 08:12) Hives fluoxetine [From Prozac] Allergy (Verified 08/12/19 08:12) metronidazole [From Flagyl] Allergy (Verified 08/12/19 08:12) Swelling of Throat prednisone Allergy (Verified 08/12/19 08:12) Tachycardia red dye Allergy (Verified 08/12/19 08:12) sertraline [From Zoloft] Allergy (Verified 08/12/19 08:12) sodium ferric gluconate complex [From Ferrlecit] Allergy (Verified 08/12/19 08:12) sucrose [From Ferrlecit] Allergy (Verified 08/12/19 08:12) aspirin Adverse Reaction (Verified 08/12/19 08:12) N&V Sulfa (Sulfonamide Antibiotics) Adverse Reaction (Verified 08/12/19 08:12) See Comments IV dye Allergy (Uncoded 08/12/19 08:12) arrhythmia vitamin B1 Allergy (Uncoded 08/12/19 08:12) Past Medical History - Social History Smoking Status: Current Every Day Smoker Frequency of alcohol use: None Drug Abuse: None Family History: Reviewed & Not Pertinent, Malignancy - Past Medical History Cardiac Medical History: Reports: Hx Heart Attack - 2009, no stent, Hx Hypercholesterolemia, Hx Hypertension - HX OF, no meds Denies: Hx Coronary Artery Disease Pulmonary Medical History: Reports: Hx Asthma, Hx COPD - INHALERS Denies: Hx Bronchitis, Hx Pneumonia Neurological Medical History: Reports: Hx Migraine, Hx Seizures - NO MEDS - LAST 2013 - NOT CURRENT. Denies: Hx Cerebrovascular Accident Endocrine Medical History: Reports: Hx Diabetes Mellitus Type 2, Hx H yperthyroidism Renal/ Medical History: Denies: Hx Peritoneal Dialysis GI Medical History: Reports: Hx Gastroesophageal Reflux Disease Musculoskeletal Medical History: Denies Hx Arthritis Psychiatric Medical History: Reports: Hx Depression Past Surgical History: Reports: Hx Abdominal Surgery, Hx Cholecystectomy, Hx Gynecologic Surgery, Hx Hysterectomy, Hx Nose Surgery, Hx Thyroid Surgery, Hx Tubal Ligation - Immunizations Immunizations up to date: Yes Hx Diphtheria, Pertussis, Tetanus Vaccination: No Review of Systems - Review of Systems Constitutional: See HPI EENT: No symptoms reported Cardiovascular: No symptoms reported Respiratory: No symptoms reported Gastrointestinal: No symptoms reported Genitourinary: No symptoms reported Neurological/Psychological: See HPI Physical Exam - Vital signs Vitals: Temp Pulse Resp BP 97.6 F 85 18 128/82 H 08/23/19 12:59 08/23/19 12:59 08/23/19 12:59 08/23/19 12:59 Interpretation: Normal - Notes Notes: Adult General: GENERAL: Alert, interacts well. No acute distress HEAD: Normocephalic, atraumatic EYES: Pupils equal, round and reactive to light. Extraocular movements intact. ENT: Airway patent. Nares patent. NECK: Full range of motion. Supple. Trachea midline. No lymphadenopathy. LUNGS: Clear to auscultation bilaterally, no wheezes, rales, or rhonchi. No respiratory distress. Nontender chest wall. HEART: Regular rate and rhythm. No murmurs, rubs or gallops. ABDOMEN: Soft, nontender. Nondistended. GENITOURINARY: Deferred EXTREMITIES: Moves all 4 extremities spontaneously. BACK: Tender to palpation along left cervical spine. Tender along left trapezius. No saddle anesthesia, normal distal neurovascular exam. Moves all extremities with full range of motion. NEUROLOGICAL: Alert and oriented x3. Normal speech. Decreased sensation along lateral face. Left lower extremity 4/5 strenght. Other extremities 5/5 strength. PSYCH: Normal affect, normal mood. SKIN: Warm, dry, normal turgor. No rashes or lesions noted. Course - Re-evaluation Re-evalutation: 08/23/19 16:00 Suspect that her symptoms are just worsening due to her cervical disc compression of her neck and her lumbar spine. She does have an appointment scheduled for trigger point injections next week. Discussed with her medicati ons for nerve pain to include gabapentin. She states initially her neurologist was concerned about starting her on any nerve medication due to concern that he hypothyrodism was causing her symptoms. Her TSH is 2.36 today. I discussed this result with the patient. Her CT scan is negative. I discussed that I recommend she have the rest of labs I ordered drawn to include Magnesium and the second troponin but patient does not desire to have these drawn. Continues to state she feels like her symptoms are more due to a worsening in her neuropathy. With her labs, imaging and physical exam being unremarkable, I suspect that this is an acute exacerbation of her current nerve pain. I recommend that she follows up with her primary care provider as soon as possible. I attempted to order gabapentin for the patient but it shows a sucrose drug allergy and patient has many allergies and there is concern that this preservative is in gabapentin. I discussed this with the patient who states she does not desire nerve medication if there is a concern of possible allergic reaction. She does state that she doesnt believe she has any allergy to the sucrose additive but she does report an anaphylactic reaction to all the allergies listed. 08/23/19 16:01 Thyroid is 2.36. Her EKG is normal sinus rhythm at 68, and her chest x-ray shows no acute findings. Her initial troponin is negative. 08/23/19 23:37 - Vital Signs Vital signs: Temp Pulse Resp BP Pulse Ox 98.1 F 76 18 112/83 98 08/23/19 17:40 08/23/19 17:40 08/23/19 17:40 08/23/19 17:40 08/23/19 17:40 - Laboratory Result Diagrams: 08/23/19 14:00 08/23/19 14:00 Laboratory results interpreted by me: 08/23/19 14:00 Hgb 15.7 H RDW 14.9 H Discharge - Discharge Clinical Impression: Radiculopathy Qualifiers: Spinal region: cervical Qualified Code(s): M54.12 - Radiculopathy, cervical region Sciatica Qualifiers: Laterality: left Qualified Code(s): M54.32 - Sciatica, left side Condition: Stable Disposition: HOME, SELF-CARE Instructions: Radiculopathy ([facility]), Sciatica ([facility]) Additional Instructions: Please follow-up with your primary care provider and your neurologist. Your TSH today was 2.3. Suspect her symptoms are worsening of her cervical radiculopathy. Your CT scan showed no abnormal findings. You may return to the emergency department if you have worsening symptoms or development of new symptoms. Referrals: ELIZABETH SMALLS MD [Primary Care Provider] - Follow up as needed
--- NOTE | 2019-08-23 16:25 | RADIOLOGY REPORT (SQ) ---
EXAM DESCRIPTION: CT HEAD WITHOUT IMAGES COMPLETED DATE/TIME: 08/23/2019 4:13 pm REASON FOR STUDY: facial tingling COMPARISON: 05/09/2019 TECHNIQUE: Axial images acquired through the brain without intravenous contrast. Images reviewed wi th bone, brain and subdural windows. Additional sagittal and coronal reconstructions were generated. Images stored on PACS. All CT scanners at this facility use dose modulation, iterative reconstruction, and/or weight based d osing when appropriate to reduce radiation dose to as low as reasonably achievable (ALARA). [facility]: Dose Right [facility]: CareDose [facility]: Dose Right [facility]: Teradose 4D [facility]: [facility] RADIATION DOSE: CT Rad equipment meets quality standard of care and radiation dose reduction techniq ues were employed. CTDIvol: 53.2 mGy. DLP: 1017 mGy-cm. mGy. LIMITATIONS: None. FINDINGS: VENTRICLES: Normal size and contour. CEREBRUM: No masses. No hemorrhage. No midline shift. No evidence for acute infarction. Normal gra y/white matter differentiation. No areas of low density in the white matter. CEREBELLUM: No masses. No hemorrhage. No alteration of density. No evidence for acute infarction. EXTRAAXIAL SPACES: No fluid collections. No masses. ORBITS AND GLOBE: No intra- or extraconal masses. Normal contour of globe without masses. CALVARIUM: No fracture. PARANASAL SINUSES: Minimal mucosal thickening within the ethmoid air cells. Remaining sinuses are cl ear. SOFT TISSUES: No mass or hematoma. OTHER: No other significant finding. IMPRESSION: NO ACUTE INTRACRANIAL IMAGING FINDINGS. EVIDENCE OF ACUTE STROKE: NO. COMMENT: Quality ID # [id number]: Final reports with documentation of one or more dose reduction techniques (e.g., Automated exposure control, adjustment of the mA and/or kV according to patient size, use of iterative reconstruction technique) TECHNICAL DOCUMENTATION: JOB ID: [id number] 2010 [employer]- All Rights Reserved Reading location - IP/workstation name: [email or web address]
--- NOTE | 2019-08-23 16:27 | EKG REPORT ---
SEVERITY:- NORMAL ECG - SINUS RHYTHM : Confirmed by: Sergio Mueller MD 23-Aug-2019 16:25:55
[2019-08-23 17:41] VITALS: BP 112/83
== END 2019-08-23 17:30 | disposition home or self-care (01) ==
LOC: ER 12:46
DX: M54.12 Radiculopathy, cervical region (principal); M54.32 Sciatica, left side; R20.0 Anesthesia of skin; I25.2 Old myocardial infarction; M79.602 Pain in left arm; F17.200 Nicotine dependence, unspecified, uncomplicated; Z79.899 Other long term (current) drug therapy; Z88.1 Allergy status to other antibiotic agents; Z88.8 Allergy status to other drugs, medicaments and biological substances; Z88.0 Allergy status to penicillin; Z88.2 Allergy status to sulfonamides; J44.9 Chronic obstructive pulmonary disease, unspecified; E11.9 Type 2 diabetes mellitus without complications
CPT/HCPCS: 36415; 70450; 71045; 80053; 82550; 82553; 83735; 84443; 84481; 84484; 85025; 93005; 93010; 99284

== ENCOUNTER 2019-08-27 22:59 | Emergency (ER) | payer BC ==
--- NOTE | 2019-08-27 23:56 | ER Document Report ---
ED Medical Screen (RME) - General Chief Complaint: High Blood Pressure Stated Complaint: DIZZINESS HEADACHE BP 180/100 AT HOME Primary Care Provider: ELIZABETH SMALLS MD [Primary Care Provider] - Follow up as needed Notes: Patient is a 44-year-old female with a history of diabetes and hypoglycemia who presents to the emergency department chief complaint of chest pain, left arm tingling, headache and elevated blood pressure. She called her primary yesterday with the same complaint and he told her to take 2 Tylenol and that should bring down her blood pressure. She states she been feeling bad since yesterday. Called EMS today who did a twelve-lead which was normal sinus, she declined transport and had her family bring her. I have treated and performed a rapid initial assessment of this patient. A comprehensive ED assessment and evaluation of the patient, analysis of test results and completion of medical decision making process will be conducted by additional ED providers. PHYSICAL EXAMINATION: GENERAL: Well-appearing, well-nourished and in no acute distress. A&Ox4. Answers questions appropriately. TRAVEL OUTSIDE OF THE [place] IN LAST 30 DAYS: No - Related Data Allergies/Adverse Reactions: Cephalosporins Allergy (Severe, Verified 08/12/19 08:12) Throat itching and swelling ciprofloxacin [From Cipro] Allergy (Severe, Verified 08/12/19 08:12) Blistering in mouth and throat ethyl alcohol Allergy (Severe, Verified 08/12/19 08:12) Shortness of Breath, cough, difficulty breathing fluticasone [From Flonase] Allergy (Severe, Verified 08/12/19 08:12) Migraine, nose bleed latex Allergy (Severe, Verified 08/12/19 08:12) RASH Penicillins Allergy (Severe, Verified 08/12/19 08:12) Throat swelling, difficulty breathing cephalexin [From Keflex] Allergy (Verified 08/12/19 08:12) Throat swelling, difficulty breathing dexlansoprazole [From Dexilant] Allergy (Verified 08/12/19 08:12) erythromycin base [From Erythrocin] Allergy (Verified 08/12/19 08:12) Hives fluoxetine [From Prozac] Allergy (Verified 08/12/19 08:12) metronidazole [From Flagyl] Allergy (Verified 08/12/19 08:12) Swelling of Throat prednisone Allergy (Verified 08/12/19 08:12) Tachycardia red dye Allergy (Verified 08/12/19 08:12) sertraline [From Zoloft] Allergy (Verified 08/12/19 08:12) sodium ferric gluconate complex [From Ferrlecit] Allergy (Verified 08/12/19 08:12) sucrose [From Ferrlecit] Allergy (Verified 08/12/19 08:12) aspirin Adverse Reaction (Verified 08/12/19 08:12) N&V Sulfa (Sulfonamide Antibiotics) Adverse Reaction (Verified 08/12/19 08:12) See Comments IV dye Allergy (Uncoded 08/12/19 08:12) arrhythmia vitamin B1 Allergy (Uncoded 08/12/19 08:12) Home Medications: levothyroxine Past Medical History - Social History Family history: None - Past Medical History Cardiac Medical History: Reports: Hx Heart Attack - 2009, no stent, Hx Hypercholesterolemia, Hx Hypertension - HX OF, no meds Denies: Hx Coronary Artery Disease Pulmonary Medical History: Reports: Hx Asthma, Hx COPD - INHALERS Denies: Hx Bronchitis, Hx Pneumonia Neurological Medical History: Reports: Hx Migraine, Hx Seizures - NO MEDS - LAST 2013 - NOT CURRENT. Denies: Hx Cerebrovascular Accident Endocrine Medical History: Reports: Hx Diabetes Mellitus Type 2, Hx Hyperthyroidism Renal/ Medical History: Denies: Hx Peritoneal Dialysis GI Medical History: Reports: Hx Gastroesophageal Reflux Disease Musculoskeltal Medical History: Denies Hx Arthritis Psychiatric Medical History: Reports: Hx Depression Past Surgical History: Reports: Hx Abdominal Surgery, Hx Cholecystectomy, Hx Gynecologic Surgery, Hx Hysterectomy, Hx Nose Surgery, Hx Thyroid Surgery, Hx Tubal Ligation - Immunizations Immunizations up to date: Yes Hx Diphtheria, Pertussis, Tetanus Vaccination: No Physical Exam - Vital signs Vitals: Temp Pulse Resp BP Pulse Ox 98.2 F 74 18 134/87 H 98 08/27/19 23:09 08/27/19 23:09 08/27/19 23:09 08/27/19 23:09 08/27/19 23:09 Course - Vital Signs Vital signs: Temp Pulse Resp BP Pulse Ox 98.2 F 74 18 134/87 H 98 08/27/19 23:09 08/27/19 23:09 08/27/19 23:09 08/27/19 23:09 08/27/19 23:09 Doctor's Discharge - Discharge Referrals: ELIZABETH SMALLS MD [Primary Care Provider] - Follow up as needed
[2019-08-28 00:30] LABS: ABSOLUTE BASOPHILS # (AUTO) 0.1 10^3/uL (0.0-0.2); ABSOLUTE EOSINOPHILS # (AUTO) 0.3 10^3/uL (0.0-0.6); ABSOLUTE LYMPHOCYTES (AUTO) 2.7 10^3/uL (0.5-4.7); ABSOLUTE MONOCYTES (AUTO) 0.4 10^3/uL (0.1-1.4); ABSOLUTE NEUT (AUTO) 2.6 10^3/uL (1.7-8.2); BASOPHILS % (AUTO) 0.9 % (0-2); EOSINOPHILS % (AUTO) 4.6 % (0-6); HEMATOCRIT 41.8 % (36.0-47.0); HEMOGLOBIN 14.7 g/dL (12.0-15.5); LYMPHOCYTES % (AUTO) 44.4 % (13-45); MEAN CORPUSCULAR HEMOGLOBIN 32.7 pg (27.0-33.4); MEAN CORPUSCULAR HGB CONC 35.2 g/dL (32.0-36.0); MEAN CORPUSCULAR VOLUME 93 fl (80-97); MONOCYTES % (AUTO) 7.4 % (3-13); PLATELET COUNT 174 10^3/uL (150-450); RED BLOOD COUNT 4.49 10^6/uL (3.72-5.28); RED CELL DISTRIBUTION WIDTH 14.6 % (11.5-14.0); SEGMENTED NEUTROPHILS % (AUTO) 42.7 % (42-78); TOTAL CELLS COUNTED % (AUTO) 100 %
[2019-08-28 00:35] LABS: INTERNATIONAL RATION (INR) 0.97; PROTHROMBIN TIME 12.9 SEC (11.4-15.4)
[2019-08-28 00:36] LABS: PARTIAL THROMBOPLASTIN TIME 27.2 SEC (23.5-35.8)
--- NOTE | 2019-08-28 01:25 | RADIOLOGY REPORT (SQ) ---
EXAM DESCRIPTION: CT HEAD WITHOUT IV CONTRAST COMPLETED DATE/TME: 08/27/2019 23:49 CLINICAL HISTORY: dizzy, [place] cp COMPARISON: 08/23/2019 TECHNIQUE: Axial CT of the head obtained from the skull apex to the skull base without contrast. FINDINGS: No acute intracranial hemorrhage identified. No mass, mass effect, shift of the midline, abnormal extra-axial fluid collection or CT evidence of acute ischemic change identified. The ventricular system is unremarkable. No acute abnormalities of the supratentorial white matter, basal ganglia, cerebellum, or brainstem. The visualized paranasal sinuses and the mastoids are relatively well aerated. No skull fracture identified. Visualized orbits and globes are unremarkable. IMPRESSION: 1. No acute intracranial abnormality identified. This exam was performed according to our departmental dose-optimization program, which includes automated exposure control, adjustment of the mA and/or kV according to patient size and/or use of iterative reconstruction technique.
--- NOTE | 2019-08-28 01:31 | RADIOLOGY REPORT (SQ) ---
EXAM DESCRIPTION: XR CHEST 1 VIEW COMPLETED DATE/TME: 08/27/2019 23:49 CLINICAL HISTORY: 44 years, Female, dizzy, [place] cp COMPARISON: 08/23/2019 chest NUMBER OF VIEWS: 1 TECHNIQUE: Portable chest LIMITATIONS: None. FINDINGS: The heart size is normal. Lungs are clear. No pneumothorax IMPRESSION: Negative chest copyright 2010 [employer]- All Rights Reserved
[2019-08-28 02:00] LABS: ALBUMIN 4.4 g/dL (3.5-5.0); ALKALINE PHOSPHATASE 52 U/L (38-126); ANION GAP 7 (5-19); ASPARTATE AMINO TRANSFERASE 19 U/L (14-36); BILIRUBIN,TOTAL 0.3 mg/dL (0.2-1.3); BLOOD UREA NITROGEN 7 mg/dL (7-20); CALCIUM 9.9 mg/dL (8.4-10.2); CARBON DIOXIDE 25 mmol/L (22-30); CHLORIDE 105 mmol/L (98-107); CREATINE KINASE 62 U/L (30-135); GLUCOSE 97 mg/dL (75-110); POTASSIUM 3.6 mmol/L (3.6-5.0); TOTAL PROTEIN 7.1 g/dL (6.3-8.2)
--- NOTE | 2019-08-28 02:02 | ER Document Report ---
Entered by KAREN DAVIS SCRIBE 08/28/19 0040 Acting as scribe for:SOPHIA MCKENNA IV, MD ED General - General Chief Complaint: High Blood Pressure Stated Complaint: DIZZINESS HEADACHE BP 180/100 AT HOME Time Seen by Provider: 08/28/19 00:26 Primary Care Provider: ELIZABETH SMALLS MD [Primary Care Provider] - Follow up as needed Mode of Arrival: Wheelchair Information source: Patient Notes: This 44 year old female patient with a history of hypertension presents to the ED today with complaints of elevated blood pressure readings. Patient states that her blood pressure has been steadily climbing since x2 days ago and that she talked to Dr. Downs who advised her to take x2 Tylenol tablets q6hr to lower her BP. She states that it worked initially the first night, but yesterday it was still high so she called EMS. EMS got a BP of 180/100 and did a 12-lead which showed normal sinus rhythm. Patient declined transport at that time and had her family bring her to the ED. She is now complaining of right-sided chest pressure and "neuropathy symptoms" on the left side. She states that she has an appointment with Dr. Downs this afternoon. TRAVEL OUTSIDE OF THE [place] IN LAST 30 DAYS: No - Related Data Allergies/Adverse Reactions: Cephalosporins Allergy (Severe, Verified 08/12/19 08:12) Throat itching and swelling ciprofloxacin [From Cipro] Allergy (Severe, Verified 08/12/19 08:12) Blistering in mouth and throat ethyl alcohol Allergy (Severe, Verified 08/12/19 08:12) Shortness of Breath, cough, difficulty breathing fluticasone [From Flonase] Allergy (Severe, Verified 08/12/19 08:12) Migraine, nose bleed latex Allergy (Severe, Verified 08/12/19 08:12) RASH Penicillins Allergy (Severe, Verified 08/12/19 08:12) Throat swelling, difficulty breathing cephalexin [From Keflex] Allergy (Verified 08/12/19 08:12) Throat swelling, difficulty breathing dexlansoprazole [From Dexilant] Allergy (Verified 08/12/19 08:12) erythromycin base [From Erythrocin] Allergy (Verified 08/12/19 08:12) Hives fluoxetine [From Prozac] Allergy (Verified 08/12/19 08:12) metronidazole [From Flagyl] Allergy (Verified 08/12/19 08:12) Swelling of Throat prednisone Allergy (Verified 08/12/19 08:12) Tachycardia red dye Allergy (Verified 08/12/19 08:12) sertraline [From Zoloft] Allergy (Verified 08/12/19 08:12) sodium ferric gluconate complex [From Ferrlecit] Allergy (Verified 08/12/19 08:12) sucrose [From Ferrlecit] Allergy (Verified 08/12/19 08:12) aspirin Adverse Reaction (Verified 08/12/19 08:12) N&V Sulfa (Sulfonamide Antibiotics) Adverse Reaction (Verified 08/12/19 08:12) See Comments IV dye Allergy (Uncoded 08/12/19 08:12) arrhythmia vitamin B1 Allergy (Uncoded 08/12/19 08:12) Home Medications: levothyroxine Past Medical History - General Information source: Patient, [facility] Records - Social History Smoking Status: Unknown if Ever Smoked Cigarette use (# per day): No Chew tobacco use (# tins/day): No Smoking Education Provided: No Family History: Reviewed & Not Pertinent, Malignancy Patient has suicidal ideation: No Patient has homicidal ideation: No - Past Medical History Cardiac Medical History: Reports: Hx Heart Attack - 2009, no stent, Hx Hypercholesterolemia, Hx Hypertension - HX OF, no meds Pulmonary Medical History: Reports: Hx Asthma, Hx COPD - INHALERS Neurological Medical History: Reports: Hx Migraine, Hx Seizures - NO MEDS - LAST 2013 - NOT CURRENT Endocrine Medical History: Reports: Hx Diabetes Mellitus Type 2, Hx Hyperthyroidism GI Medical History: Reports: Hx Gastroesophageal Reflux Disease Psychiatric Medical History: Reports: Hx Depression Past Surgical History: Reports: Hx Abdominal Surgery, Hx Cholecystectomy, Hx Gynecologic Surgery, Hx Hysterectomy, Hx Nose Surgery, Hx Thyroid Surgery, Hx Tubal Ligation - Immunizations Immunizations up to date: Yes Hx Diphtheria, Pertussis, Tetanus Vaccination: No Review of Systems - Review of Systems Constitutional: See HPI, Other - Elevated blood pressure EENT: No symptoms reported Cardiovascular: See HPI, Other - chest pressure Respiratory: No symptoms reported Gastrointestinal: No symptoms reported Genitourinary: No symptoms reported Female Genitourinary: No symptoms reported Musculoskeletal: No symptoms reported Skin: No symptoms reported Hematologic/Lymphatic: No symptoms reported Neurological/Psychological: See HPI, Other - "neuropathy symptoms" -: Yes All other systems reviewed and negative Physical Exam - Vital signs Vitals: Temp Pulse Resp BP Pulse Ox 98.2 F 74 18 134/87 H 98 08/27/19 23:09 08/27/19 23:09 08/27/19 23:09 08/27/19 23:09 08/27/19 23:09 - General General appearance: Alert In distress: None - HEENT Head: Normocephalic, Atraumatic Eyes: Normal Pupils: PERRL - Respiratory Respiratory status: No respiratory distress Chest status: Nontender Breath sounds: Normal Chest palpation: Normal - Cardiovascular Rhythm: Regular Heart sounds: Normal auscultation Murmur: No Friction rub: No Gallop: None auscultated - Abdominal Inspection: Normal Distension: No distension Bowel sounds: Normal Tenderness: Nontender - Abdomen soft Organomegaly: No organomegaly - Back Back: Normal, Nontender - Extremities General upper extremity: Normal inspection General lower extremity: Normal inspection - Neurological Neuro grossly intact: Yes Orientation: AAOx4 Spalding Coma Scale Eye Opening: Spontaneous [place] Coma Scale Verbal: Oriented [place] Coma Scale Motor: Obeys Commands Spalding Coma Scale Total: 15 - Psychological Associated symptoms: Normal affect, Normal mood - Skin Skin Temperature: Warm Skin Moisture: Dry Skin Color: Normal Course - Re-evaluation Re-evalutation: 08/28/19 01:01 Patient states that she was going to start taking her Buspar for anxiety during this visit. This MD informed her that it was not advisable, as she is here seeking evaluation for her hypertension. 08/28/19 03:27 Patient is laying in bed in no acute distress. Blood pressure is 112/81, heart rate 59 O2 sats 96% on room air. Results of ED MSE discussed with patient. All questions were answered prior to discharge. Emergency signs and symptoms, reasons to return to the emergency department discussed with patient. - Vital Signs Vital signs: Temp Pulse Resp BP Pulse Ox 98.2 F 74 14 124/79 99 08/27/19 23:09 08/27/19 23:09 08/28/19 00:19 08/28/19 00:19 08/28/19 00:19 - Laboratory Result Diagrams: 08/28/19 00:13 08/28/19 00:13 Laboratory results interpreted by me: 08/28/19 00:13 RDW 14.6 H - EKG Interpretation by Me Additional EKG results interpreted by me: 08/28/19 03:29 EKG obtained on 08/28/2019 at 00 45 hours was interpreted by this MD. Findings bradycardia, rate 53, first-degree AV block is present, QRS complexes appear narrow, there are no obvious patterns of ST segment elevation or depression present to suggest acute myocardial ischemia or infarction. Impression: Bradycardia with first-degree AV block and nonspecific ST segments. Discharge - Discharge Clinical Impression: Elevated blood pressure reading Condition: Stable Disposition: HOME, SELF-CARE Additional Instructions: Return to the Emergency Department without delay if any worse. HOME CARE INSTRUCTIONS & INFORMATION: Thank you for choosing us for your medical needs. We hope you're satisfied with the care you received. After you leave, you must properly care for your problem and, at the same time, observe its progress. Any condition can change. Some illnesses can change rapidly over hours or days. If your condition worsens, return to the Emergency Department or see your physician promptly. ABOUT YOUR X-RAYS AND EKG'S: If you had an EKG or X-rays taken, they have been read by the Emergency Physician. The X-rays and EKG's will also be read by a Radiologist or Ceramic Saw Tender within 24 hours. If discrepancies are noted, you will be notified by telephone. Please be certain the ED has a correct telephone number & address where you can be reached. Also, realize that some fractures or abnormalities do not show up on initial X-rays. If your symptoms continue, see your physician. ABOUT YOUR LABORATORY TEST: If you had laboratory tests, the results have been reviewed by the Emergency Physician. Some test results (for example cultures) may not be available for several days. You will be contacted if any test result shows you need additional treatment. Please be certain the ED has a correct telephone number and address where you can be reached. ABOUT YOUR MEDICATIONS: You will receive instructions on how to take your medicine on the prescription label you receive. Additional information may be provided by the Pharmacy. If you have questions afterwards, call the ED for clarification or further instructions. Some prescribed medications may cause drowsiness. Do not perform tasks such as driving a car or operating machinery without consulting your Pharmacist. If you feel you need a refill of pain medication, your condition will need re-evaluation. Please do not call for a refill of any medication. ABOUT YOUR SIGNATURE: Signature of this document acknowledges to followin. Understanding that you received emergency treatment and that you may be released before al medical problems are known or treated. Please be certain the ED has a correct phone number & address where you can be reached. 2. Acknowledgement that you will arrange for follow-up care as recommended. 3. Authorization for the Emergency Physician to provide information to your follow-up Physician in order to maximize your care. AT ANY TIME, IF YOUR SYMPTOMS CHANGE SIGNIFICANTLY OR WORSEN OR YOU DEVELOP NEW SYMPTOMS, RETURN TO THE EMERGENCY DEPARTMENT IMMEDIATELY FOR RE-EVALUATION. OUR GOAL IS TO PROVIDE EXCELLENT MEDICAL CARE! WE HOPE THAT WE HAVE MET YOUR EXPECTATIONS DURING YOUR EMERGENCY DEPARTMENT VISIT AND THAT YOU FEEL YOU HAVE RECEIVED EXCELLENT CARE! Referrals: ELIZABETH SMALLS MD [Primary Care Provider] - Follow up as needed I personally performed the services described in the documentation, reviewed and edited the documentation which was dictated to the scribe in my presence, and it accurately records my words and actions.
[2019-08-28 03:47] VITALS: BP 115/86
[2019-08-28 04:40] LABS: FREE T3 2.71 pg/mL (2.77-5.27); FREE T4 (FREE THYROXINE) 1.52 ng/dL (0.78-2.19)
[2019-08-28 04:54] LABS: THYROID STIMULATING HORMONE 4.3 uIU/mL (0.47-4.68)
--- NOTE | 2019-08-28 06:23 | EKG REPORT ---
SEVERITY:- DEFECTIVE ECG - ALL 12 LEADS ARE MISSING : Confirmed by: Sergio Mueller MD 28-Aug-2019 06:23:16
--- NOTE | 2019-08-28 06:23 | EKG REPORT ---
SEVERITY:- ABNORMAL ECG - SINUS RHYTHM FIRST DEGREE AV BLOCK BORDERLINE INFERIOR Q WAVES : Confirmed by: Sergio Mueller MD 28-Aug-2019 06:22:53
== END 2019-08-28 03:46 | disposition home or self-care (01) ==
LOC: ER 22:59
DX: R03.0 Elevated blood-pressure reading, without diagnosis of hypertension (principal); R42 Dizziness and giddiness; R51 Headache; R00.1 Bradycardia, unspecified; I44.30 Unspecified atrioventricular block; E78.00 Pure hypercholesterolemia, unspecified; Z88.3 Allergy status to other anti-infective agents; Z91.040 Latex allergy status; I25.2 Old myocardial infarction
CPT/HCPCS: 36415; 70450; 71045; 80053; 82550; 84439; 84443; 84481; 84484; 85025; 85610; 85730; 93005; 93010; 99284

== ENCOUNTER 2019-09-01 23:19 | Emergency (ER) | payer BC ==
[2019-09-02] MEDS ORDERED: HYDROCODONE/ACETAMINOPHEN 5-325 MG (6 TAB/ER DISP) PO PRN (04:04)
[2019-09-02 04:24] VITALS: BP 127/89
--- NOTE | 2019-09-02 06:13 | ER Document Report ---
Entered by KAREN DAVIS SCRIBE 09/02/19 0402 Acting as scribe for:SOPHIA MCKENNA IV, MD ED Extremity Problem, Lower - General Chief Complaint: Ankle Swelling Stated Complaint: SWELLING ANKLES Time Seen by Provider: 09/02/19 03:19 Primary Care Provider: ELIZABETH SMALLS MD [Primary Care Provider] - Follow up as needed Mode of Arrival: Ambulatory Information source: Patient Notes: This 44 year old female patient presents to the ED today with complaints of bilateral ankle swelling that started prior to arrival. Patient states that she feels a burning sensation in both feet and that it radiates up her LLE. She notes that her PCP is doing a rheumatoid arthritis workup on 09/20/2019. Denies any other complaints. TRAVEL OUTSIDE OF THE [place] IN LAST 30 DAYS: No - Related Data Allergies/Adverse Reactions: Cephalosporins Allergy (Severe, Verified 08/12/19 08:12) Throat itching and swelling ciprofloxacin [From Cipro] Allergy (Severe, Verified 08/12/19 08:12) Blistering in mouth and throat ethyl alcohol Allergy (Severe, Verified 08/12/19 08:12) Shortness of Breath, cough, difficulty breathing fluticasone [From Flonase] Allergy (Severe, Verified 08/12/19 08:12) Migraine, nose bleed latex Allergy (Severe, Verified 08/12/19 08:12) RASH Penicillins Allergy (Severe, Verified 08/12/19 08:12) Throat swelling, difficulty breathing cephalexin [From Keflex] Allergy (Verified 08/12/19 08:12) Throat swelling, difficulty breathing dexlansoprazole [From Dexilant] Allergy (Verified 08/12/19 08:12) erythromycin base [From Erythrocin] Allergy (Verified 08/12/19 08:12) Hives fluoxetine [From Prozac] Allergy (Verified 08/12/19 08:12) metronidazole [From Flagyl] Allergy (Verified 08/12/19 08:12) Swelling of Throat prednisone Allergy (Verified 08/12/19 08:12) Tachycardia red dye Allergy (Verified 08/12/19 08:12) sertraline [From Zoloft] Allergy (Verified 08/12/19 08:12) sodium ferric gluconate complex [From Ferrlecit] Allergy (Verified 08/12/19 08:12) sucrose [From Ferrlecit] Allergy (Verified 08/12/19 08:12) aspirin Adverse Reaction (Verified 08/12/19 08:12) N&V Sulfa (Sulfonamide Antibiotics) Adverse Reaction (Verified 08/12/19 08:12) See Comments IV dye Allergy (Uncoded 08/12/19 08:12) arrhythmia vitamin B1 Allergy (Uncoded 08/12/19 08:12) Past Medical History - General Information source: Patient, [facility] Records - Social History Smoking Status: Current Every Day Smoker Cigarette use (# per day): Yes Chew tobacco use (# tins/day): No Smoking Education Provided: No Frequency of alcohol use: None Drug Abuse: None Family History: Reviewed & Not Pertinent, Malignancy Patient has homicidal ideation: No - Past Medical History Cardiac Medical History: Reports: Hx Heart Attack - 2009, no stent, Hx Hypercholesterolemia, Hx Hypertension - HX OF, no meds Pulmonary Medical History: Reports: Hx Asthma, Hx COPD - INHALERS Neurological Medical History: Reports: Hx Migraine, Hx Seizures - NO MEDS - LAST 2013 - NOT CURRENT Endocrine Medical History: Reports: Hx Diabetes Mellitus Type 2, Hx Hyperthyroidism GI Medical History: Reports: Hx Gastroesophageal Reflux Disease Psychiatric Medical History: Reports: Hx Depression Past Surgical History: Reports: Hx Abdominal Surgery, Hx Cholecystectomy, Hx Gynecologic Surgery, Hx Hysterectomy, Hx Nose Surgery, Hx Thyroid Surgery, Hx Tubal Ligation - Immunizations Immunizations up to date: Yes Hx Diphtheria, Pertussis, Tetanus Vaccination: No Review of Systems - Review of Systems Constitutional: No symptoms reported EENT: No symptoms reported Cardiovascular: No symptoms reported Respiratory: No symptoms reported Gastrointestinal: No symptoms reported Genitourinary: No symptoms reported Female Genitourinary: No symptoms reported Musculoskeletal: See HPI, Ankle swelling Skin: No symptoms reported Hematologic/Lymphatic: No symptoms reported Neurological/Psychological: No symptoms reported -: Yes All other systems reviewed and negative Physical Exam - Vital signs Vitals: Temp Pulse Resp BP Pulse Ox 97.9 F 85 16 131/83 H 100 09/01/19 23:34 09/01/19 23:34 09/01/19 23:34 09/01/19 23:34 09/01/19 23:34 - General General appearance: Alert In distress: None - HEENT Head: Normocephalic, Atraumatic Eyes: Normal Pupils: PERRL - Respiratory Respiratory status: No respiratory distress Chest status: Nontender Breath sounds: Normal Chest palpation: Normal - Cardiovascular Rhythm: Regular Heart sounds: Normal auscultation Murmur: No Friction rub: No Gallop: None auscultated - Abdominal Inspection: Normal Distension: No distension Bowel sounds: Normal Tenderness: Nontender - Abdomen soft Organomegaly: No organomegaly - Back Back: Normal, Nontender - Extremities General upper extremity: Normal inspection General lower extremity: Normal inspection. No: Edema Ankle: No: Edema - Neurological Neuro grossly intact: Yes Orientation: AAOx4 [place] Coma Scale Eye Opening: Spontaneous [place] Coma Scale Verbal: Oriented B[place] Coma Scale Motor: Obeys Commands [place] Coma Scale Total: 15 - Psychological Associated symptoms: Normal affect, Normal mood - Skin Skin Temperature: Warm Skin Moisture: Dry Skin Color: Normal Course - Vital Signs Vital signs: Temp Pulse Resp BP Pulse Ox 97.9 F 85 16 131/83 H 100 09/02/19 00:29 09/01/19 23:34 09/01/19 23:34 09/01/19 23:34 09/01/19 23:34 Discharge - Discharge Clinical Impression: Bilateral ankle pain Qualifiers: Chronicity: acute Qualified Code(s): M25.571 - Pain in right ankle and joints of right foot; M25.572 - Pain in left ankle and joints of left foot Condition: Stable Disposition: HOME, SELF-CARE Additional Instructions: Return to the Emergency Department without delay if any worse. HOME CARE INSTRUCTIONS & INFORMATION: Thank you for choosing us for your medical needs. We hope you're satisfied with the care you received. After you leave, you must properly care for your problem and, at the same time, observe i ts progress. Any condition can change. Some illnesses can change rapidly over hours or days. If your condition worsens, return to the Emergency Department or see your physician promptly. ABOUT YOUR X-RAYS AND EKG'S: If you had an EKG or X-rays taken, they have been read by the Emergency Physician. The X-rays and EKG's will also be read by a Radiologist or Security Systems Administrator within 24 hours. If discrepancies are noted, you will be notified by telephone. Please be certain the ED has a correct telephone number & address where you can be reached. Also, realize that some fractures or abnormalities do not show up on initial X-rays. If your symptoms continue, see your physician. ABOUT YOUR LABORATORY TEST: If you had laboratory tests, the results have been reviewed by the Emergency Physician. Some test results (for example cultures) may not be available for several days. You will be contacted if any test result shows you need additional treatment. Please be certain the ED has a correct telephone number and address where you can be reached. ABOUT YOUR MEDICATIONS: You will receive instructions on how to take your medicine on the prescription label you receive. Additional information may be provided by the Pharmacy. If you have questions afterwards, call the ED for clarification or further instructions. Some prescribed medications may cause drowsiness. Do not perform tasks such as driving a car or operating machinery without consulting your Pharmacist. If you feel you need a refill of pain medication, your condition will need re-evaluation. Please do not call for a refill of any medication. ABOUT YOUR SIGNATURE: Signature of this document acknowledges to followin. Understanding that you received emergency treatment and that you may be released before al medical problems are known or treated. Please be certain the ED has a correct phone number & address where you can be reached. 2. Acknowledgement that you will arrange for follow-up care as recommended. 3. Authorization for the Emergency Physician to provide information to your follow-up Physician in order to maximize your care. AT ANY TIME, IF YOUR SYMPTOMS CHANGE SIGNIFICANTLY OR WORSEN OR YOU DEVELOP NEW SYMPTOMS, RETURN TO THE EMERGENCY DEPARTMENT IMMEDIATELY FOR RE-EVALUATION. OUR GOAL IS TO PROVIDE EXCELLENT MEDICAL CARE! WE HOPE THAT WE HAVE MET YOUR EXPECTATIONS DURING YOUR EMERGENCY DEPARTMENT VISIT AND THAT YOU FEEL YOU HAVE RECEIVED EXCELLENT CARE! Referrals: ELIZABETH SMALLS MD [Primary Care Provider] - Follow up as needed I personally performed the services described in the documentation, reviewed and edited the documentation which was dictated to the scribe in my presence, and it accurately records my words and actions.
== END 2019-09-02 04:24 | disposition home or self-care (01) ==
LOC: ER 23:19
DX: M25.472 Effusion, left ankle (principal); M25.471 Effusion, right ankle; F17.210 Nicotine dependence, cigarettes, uncomplicated; E78.00 Pure hypercholesterolemia, unspecified; E11.9 Type 2 diabetes mellitus without complications; I25.2 Old myocardial infarction
CPT/HCPCS: 99283

== ENCOUNTER 2019-09-06 17:05 | Emergency (ER) | payer BC ==
--- NOTE | 2019-09-06 17:12 | ER Document Report ---
ED Medical Screen (RME) - General Chief Complaint: Syncope Stated Complaint: SYNCOPE Time Seen by Provider: 09/06/19 17:05 Primary Care Provider: ELIZABETH SMALLS MD [Primary Care Provider] - Follow up as needed Mode of Arrival: Ambulatory Information source: Patient TRAVEL OUTSIDE OF THE [place] IN LAST 30 DAYS: No - HPI Notes: 09/06/19 17:06 44 yr old female was in the lobby and had an unwitnessed fall where she hit her head. Provider was asked to come out stat to evaluate patient. Patient was lying on the floor, conscious and states that she felt dizzy felt her heart racing and then she fell. Patient was put in a c-collar put on a flat board brought back to her room. Patient states that she did have a seizure 6 years ago that was stressed related. Denies being on any blood thinners. Reports when originally prior to the emergency room was urinary retention. Patient was brought back to the main in room 3, she will be seen by 1 of the main side providers. C-collar is in place. CT of head and cervical spine has been ordered and CT made aware due to trauma. 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 Patient reports she is having a headache at this time. Charge nurse made aware at 1705 the patient had a syncopal event as well as means that providers at 1705 I have greeted and performed a rapid initial assessment of this patient. A comprehensive ED assessment and evaluation of the patient, analysis of test results and completion of the medical decision making process will be conducted by additional ED providers. PHYSICAL EXAMINATION: HEAD: Atraumatic, normocephalic. No open wounds, hematomas noted. EYES: Pupils equal round extraocular movements intact, conjunctiva are normal. NECK: Normal range of motion CV: S1-S2 regular - Related Data Allergies/Adverse Reactions: Cephalosporins Allergy (Severe, Verified 08/12/19 08:12) Throat itching and swelling ciprofloxacin [From Cipro] Allergy (Severe, Verified 08/12/19 08:12) Blistering in mouth and throat ethyl alcohol Allergy (Severe, Verified 08/12/19 08:12) Shortness of Breath, cough, difficulty breathing fluticasone [From Flonase] Allergy (Severe, Verified 08/12/19 08:12) Migraine, nose bleed latex Allergy (Severe, Verified 08/12/19 08:12) RASH Penicillins Allergy (Severe, Verified 08/12/19 08:12) Throat swelling, difficulty breathing cephalexin [From Keflex] Allergy (Verified 08/12/19 08:12) Throat swelling, difficulty breathing dexlansoprazole [From Dexilant] Allergy (Verified 08/12/19 08:12) erythromycin base [From Erythrocin] Allergy (Verified 08/12/19 08:12) Hives fluoxetine [From Prozac] Allergy (Verified 08/12/19 08:12) metronidazole [From Flagyl] Allergy (Verified 08/12/19 08:12) Swelling of Throat prednisone Allergy (Verified 08/12/19 08:12) Tachycardia red dye Allergy (Verified 08/12/19 08:12) sertraline [From Zoloft] Allergy (Verified 08/12/19 08:12) sodium ferric gluconate complex [From Ferrlecit] Allergy (Verified 08/12/19 08:12) sucrose [From Ferrlecit] Allergy (Verified 08/12/19 08:12) aspirin Adverse Reaction (Verified 08/12/19 08:12) N&V Sulfa (Sulfonamide Antibiotics) Adverse Reaction (Verified 08/12/19 08:12) See Comments IV dye Allergy (Uncoded 08/12/19 08:12) arrhythmia vitamin B1 Allergy (Uncoded 08/12/19 08:12) Past Medical History - Social History Family history: None - Past Medical History Cardiac Medical History: Reports: Hx Heart Attack - 2009, no stent, Hx Hypercholesterolemia, Hx Hypertension - HX OF, no meds Denies: Hx Coronary Artery Disease Pulmonary Medical History: Reports: Hx Asthma, Hx COPD - INHALERS Denies: Hx Bronchitis, Hx Pneumonia Neurological Medical History: Reports: Hx Migraine, Hx Seizures - NO MEDS - LAST 2013 - NOT CURRENT. Denies: Hx Cerebrovascular Accident Endocrine Medical History: Reports: Hx Diabetes Mellitus Type 2, Hx Hyperthyroidism Renal/ Medical History: Denies: Hx Peritoneal Dialysis GI Medical History: Reports: Hx Gastroesophageal Reflux Disease Musculoskeltal Medical History: Denies Hx Arthritis Psychiatric Medical History: Reports: Hx Depression Past Surgical History: Reports: Hx Abdominal Surgery, Hx Cholecystectomy, Hx Gynecologic Surgery, Hx Hysterectomy, Hx Nose Surgery, Hx Thyroid Surgery, Hx Tubal Ligation - Immunizations Immunizations up to date: Yes Hx Diphtheria, Pertussis, Tetanus Vaccination: No Doctor's Discharge - Discharge Referrals: ELIZABETH SMALLS MD [Primary Care Provider] - Follow up as needed
--- NOTE | 2019-09-06 17:38 | RADIOLOGY REPORT (SQ) ---
EXAM DESCRIPTION: CT HEAD WITHOUT IMAGES COMPLETED DATE/TIME: 09/06/2019 5:25 pm REASON FOR STUDY: syncopal event, dizziness, unwitnessed COMPARISON: 08/28/2019 TECHNIQUE: Axial images acquired through the brain without intravenous contrast. Images reviewed wi th bone, brain and subdural windows. Additional sagittal and coronal reconstructions were generated. Images stored on PACS. All CT scanners at this facility use dose modulation, iterative reconstruction, and/or weight based d osing when appropriate to reduce radiation dose to as low as reasonably achievable (ALARA). [facility]: Dose Right [facility]: CareDose [facility]: Dose Right [facility]: Teradose 4D [facility]: Smart [employer] RADIATION DOSE: mGy. LIMITATIONS: None. FINDINGS: VENTRICLES: Normal size and contour. CEREBRUM: No masses. No hemorrhage. No midline shift. No evidence for acute infarction. Normal gra y/white matter differentiation. No areas of low density in the white matter. CEREBELLUM: No masses. No hemorrhage. No alteration of density. No evidence for acute infarction. EXTRAAXIAL SPACES: No fluid collections. No masses. ORBITS AND GLOBE: No intra- or extraconal masses. Normal contour of globe without masses. CALVARIUM: No fracture. PARANASAL SINUSES: No fluid or mucosal thickening. SOFT TISSUES: No mass or hematoma. OTHER: No other significant finding. IMPRESSION: NO ACUTE INTRACRANIAL IMAGING FINDINGS. EVIDENCE OF ACUTE STROKE: NO. COMMENT: Quality ID # [id number]: Final reports with documentation of one or more dose reduction techniques (e.g., Automated exposure control, adjustment of the mA and/or kV according to patient size, use of iterative reconstruction technique) TECHNICAL DOCUMENTATION: JOB ID: [id number] [employer]- All Rights Reserved Reading location - IP/workstation name: [email or web address]
--- NOTE | 2019-09-06 17:52 | RADIOLOGY REPORT (SQ) ---
EXAM DESCRIPTION: CT CERVICAL SPINE WITHOUT IMAGES COMPLETED DATE/TIME: 09/06/2019 5:25 pm REASON FOR STUDY: syncopal event, dizziness, unwitnessed COMPARISON: 05/09/2019 TECHNIQUE: Axial images acquired through the cervical spine without intravenous contrast. Images re viewed with lung, soft tissue and bone windows. Reconstructed coronal and sagittal MPR images review ed. Images stored on PACS. All CT scanners at this facility use dose modulation, iterative reconstruction, and/or weight based d osing when appropriate to reduce radiation dose to as low as reasonably achievable (ALARA). [facility]: Dose Right [facility]: CareDose [facility]: Dose Right [facility]: Teradose 4D [facility]: Smart [employer] RADIATION DOSE: CT Rad equipment meets quality standard of care and radiation dose reduction techniq ues were employed. CTDIvol: 18.4 - 53.2 mGy. DLP: 1352 mGy-cm. mGy. LIMITATIONS: None. FINDINGS: ALIGNMENT: Anatomic. MINERALIZATION: Normal. VERTEBRAL BODIES: No fractures or dislocation. DISCS: There is mild disc narrowing at C5-6 with small marginal osteophytes. FACETS, LATERAL MASSES, POSTERIOR ELEMENTS: No fractures. No dislocation. No acute findings. HARDWARE: None in the spine. VISUALIZED RIBS: No fractures. LUNG APICES AND SOFT TISSUES: No significant or acute findings. OTHER: No other significant finding. IMPRESSION: Degenerative disc disease and spondylosis. No acute finding. TECHNICAL DOCUMENTATION: JOB ID: [id number] Quality ID # [id number]: Final reports with documentation of one or more dose reduction techniques (e.g., Au tomated exposure control, adjustment of the mA and/or kV according to patient size, use of iterative reconstruction technique) 2010 [employer]- All Rights Reserved Reading location - IP/workstation name: [email or web address]
[2019-09-06 17:56] LABS: ABSOLUTE BASOPHILS # (AUTO) 0.1 10^3/uL (0.0-0.2); ABSOLUTE EOSINOPHILS # (AUTO) 0.3 10^3/uL (0.0-0.6); ABSOLUTE LYMPHOCYTES (AUTO) 2.2 10^3/uL (0.5-4.7); ABSOLUTE MONOCYTES (AUTO) 0.4 10^3/uL (0.1-1.4); ABSOLUTE NEUT (AUTO) 4.1 10^3/uL (1.7-8.2); EOSINOPHILS % (AUTO) 3.7 % (0-6); HEMATOCRIT 41.2 % (36.0-47.0); HEMOGLOBIN 14.8 g/dL (12.0-15.5); LYMPHOCYTES % (AUTO) 30.6 % (13-45); MEAN CORPUSCULAR HEMOGLOBIN 33.1 pg (27.0-33.4); MEAN CORPUSCULAR HGB CONC 35.9 g/dL (32.0-36.0); MEAN CORPUSCULAR VOLUME 92 fl (80-97); PLATELET COUNT 166 10^3/uL (150-450); RED BLOOD COUNT 4.46 10^6/uL (3.72-5.28); RED CELL DISTRIBUTION WIDTH 14.3 % (11.5-14.0); SEGMENTED NEUTROPHILS % (AUTO) 58.7 % (42-78); TOTAL CELLS COUNTED % (AUTO) 100 %
[2019-09-06 18:29] LABS: ALKALINE PHOSPHATASE 59 U/L (38-126); ANION GAP 5 (5-19); ASPARTATE AMINO TRANSFERASE 17 U/L (14-36); BILIRUBIN,TOTAL 0.3 mg/dL (0.2-1.3); BLOOD UREA NITROGEN 14 mg/dL (7-20); CALCIUM 9.8 mg/dL (8.4-10.2); CARBON DIOXIDE 25 mmol/L (22-30); CHLORIDE 108 mmol/L (98-107); GLUCOSE 110 mg/dL (75-110); POTASSIUM 3.6 mmol/L (3.6-5.0); TOTAL PROTEIN 6.5 g/dL (6.3-8.2)
[2019-09-06] MEDS ORDERED: OXYCODONE HCL IR 5 MG TABLET PO ONE (18:56)
--- NOTE | 2019-09-06 19:34 | RADIOLOGY REPORT (SQ) ---
EXAM DESCRIPTION: KNEE LEFT 3 VIEWS IMAGES COMPLETED DATE/TIME: 09/06/2019 7:17 pm REASON FOR STUDY: fal/ pain COMPARISON: None. NUMBER OF VIEWS: Three views. TECHNIQUE: AP, lateral, and sunrise patella radiographic images acquired of the left knee. LIMITATIONS: None. FINDINGS: MINERALIZATION: Normal. BONES: No acute fracture or dislocation. No worrisome bone lesions. JOINT: No effusion. SOFT TISSUES: No soft tissue swelling. No radio-opaque foreign body. OTHER: No other significant finding. IMPRESSION: NEGATIVE STUDY OF THE LEFT KNEE. NO RADIOGRAPHIC EVIDENCE OF ACUTE INJURY. TECHNICAL DOCUMENTATION: JOB ID: [id number] 2010 [employer]- All Rights Reserved Reading location - IP/workstation name: [email or web address]
[2019-09-06 19:37] LABS: APPEARANCE,URINE CLEAR; BILIRUBIN,URINE NEGATIVE (NEGATIVE); COLOR,URINE STRAW; GLUCOSE, URINE NEGATIVE (NEGATIVE); KETONES,URINE NEGATIVE (NEGATIVE); PROTEIN,URINE NEGATIVE (NEGATIVE); URINE SPECIFIC GRAVITY 1.008; UROBILINOGEN,URINE NEGATIVE mg/dL (<2.0)
--- NOTE | 2019-09-06 20:15 | ER Document Report ---
Entered by JIM THOMPSON SCRIBE 09/06/19 [id number] Acting as scribe for:LUIS JONES DO ED General - General Chief Complaint: Dizziness Stated Complaint: SYNCOPE Time Seen by Provider: 09/06/19 17:05 Primary Care Provider: ELIZABETH SMALLS MD [Primary Care Provider] - 09/07/19 Mode of Arrival: Ambulatory Information source: Patient Notes: This 44 year old female patient presents to the emergency department today with a unwitnessed fall. Patient states this morning she was visiting her Doctor's office for urinary retention and pain when urinating. Patient states she drove herself to the ED after her appointment and was standing in line waiting to check in when she began to feel dizzy. Patient reports she fell and states she has left knee pain and pain in the back of her neck. Patient states her last menstrual period was x1 month ago. TRAVEL OUTSIDE OF THE [place] IN LAST 30 DAYS: No - Related Data Allergies/Adverse Reactions: Cephalosporins Allergy (Severe, Verified 08/12/19 08:12) Throat itching and swelling ciprofloxacin [From Cipro] Allergy (Severe, Verified 08/12/19 08:12) Blistering in mouth and throat ethyl alcohol Allergy (Severe, Verified 08/12/19 08:12) Shortness of Breath, cough, difficulty breathing fluticasone [From Flonase] Allergy (Severe, Verified 08/12/19 08:12) Migraine, nose bleed latex Allergy (Severe, Verified 08/12/19 08:12) RASH Penicillins Allergy (Severe, Verified 08/12/19 08:12) Throat swelling, difficulty breathing cephalexin [From Keflex] Allergy (Verified 08/12/19 08:12) Throat swelling, difficulty breathing dexlansoprazole [From Dexilant] Allergy (Verified 08/12/19 08:12) erythromycin base [From Erythrocin] Allergy (Verified 08/12/19 08:12) Hives fluoxetine [From Prozac] Allergy (Verified 08/12/19 08:12) metronidazole [From Flagyl] Allergy (Verified 08/12/19 08:12) Swelling of Throat prednisone Allergy (Verified 08/12/19 08:12) Tachycardia red dye Allergy (Verified 08/12/19 08:12) sertraline [From Zoloft] Allergy (Verified 08/12/19 08:12) sodium ferric gluconate complex [From Ferrlecit] Allergy (Verified 08/12/19 08:12) sucrose [From Ferrlecit] Allergy (Verified 08/12/19 08:12) aspirin Adverse Reaction (Verified 08/12/19 08:12) N&V Sulfa (Sulfonamide Antibiotics) Adverse Reaction (Verified 08/12/19 08:12) See Comments IV dye Allergy (Uncoded 08/12/19 08:12) arrhythmia vitamin B1 Allergy (Uncoded 08/12/19 08:12) Past Medical History - General Information source: Patient - Social History Smoking Status: Current Every Day Smoker Cigarette use (# per day): Yes Family History: Reviewed & Not Pertinent, Malignancy - Past Medical History Cardiac Medical History: Reports: Hx Heart Attack - 2009, no stent, Hx Hypercholesterolemia, Hx Hypertension - HX OF, no meds Pulmonary Medical History: Reports: Hx Asthma, Hx COPD - INHALERS Neurological Medical History: Reports: Hx Migraine, Hx Seizures - NO MEDS - LAST 2013 - NOT CURRENT Endocrine Medical History: Reports: Hx Diabetes Mellitus Type 2, Hx Hyperthyroidism GI Medical History: Reports: Hx Gastroesophageal Reflux Disease Psychiatric Medical History: Reports: Hx Depression Past Surgical History: Reports: Hx Abdominal Surgery, Hx Cholecystectomy, Hx Gynecologic Surgery, Hx Hysterectomy, Hx Nose Surgery, Hx Thyroid Surgery, Hx Tubal Ligation - Immunizations Immunizations up to date: Yes Hx Diphtheria, Pertussis, Tetanus Vaccination: No Review of Systems - Review of Systems Constitutional: No symptoms reported EENT: No symptoms reported Cardiovascular: See HPI, Dizziness Respiratory: No symptoms reported Gastrointestinal: No symptoms reported Genitourinary: See HPI, Pain, Retention Female Genitourinary: See HPI, Last menstrual period - x1 month ago Musculoskeletal: See HPI, Neck pain, Other - left knee pain Skin: No symptoms reported Hematologic/Lymphatic: No symptoms reported Neurological/Psychological: No symptoms reported -: Yes All other systems reviewed and negative Physical Exam - Vital signs Vitals: Resp Pulse Ox 14 100 09/06/19 17:28 09/06/19 17:28 - General General appearance: Appears well, Alert - HEENT Head: Normocephalic, Atraumatic Eyes: Normal Pupils: PERRL Notes: Tenderness with palpation to the paraspinal neck. - Respiratory Respiratory status: No respiratory distress Chest status: Nontender Breath sounds: Normal Chest palpation: Normal - Cardiovascular Rhythm: Regular Heart sounds: Normal auscultation Murmur: No - Abdominal Inspection: Normal - Soft Distension: No distension Bowel sounds: Normal Tenderness: Nontender - Extremities General upper extremity: Normal inspection. No: Edema Notes: Abrasion below the left anterior knee. No deformity appreciated. - Neurological Neuro grossly intact: Yes Cognition: Normal Orientation: AAOx4 Speech: Normal - Psychological Associated symptoms: Normal affect, Anxious - mild - Skin Skin Temperature: Warm Skin Moisture: Dry Skin Color: Normal Course - Re-evaluation Re-evalutation: 09/06/19 20:06 MDM 44 year old female arrives after having difficulty with urination earlier - she had come here to be seen for that. After arriving and having been out in the heat at her pcp this am she "passed out." Abrasion to left knee and neck pain. Currently undergoing extensive workup for ? metabolic reason for her ailments. - Vital Signs Vital signs: Temp Pulse Resp BP Pulse Ox 97.7 F 17 118/74 100 09/06/19 19:51 09/06/19 19:01 09/06/19 19:01 09/06/19 19:01 - Laboratory Result Diagrams: 09/06/19 17:41 09/06/19 17:41 Laboratory results interpreted by me: 09/06/19 09/06/19 17:41 17:41 RDW 14.3 H Chloride 108 H - Diagnostic Test Radiology reviewed: Image reviewed, Reports reviewed - EKG Interpretation by Me EKG shows normal: Sinus rhythm Rate: Normal Rhythm: NSR - NSR NL [place] [address] elevation or depression my interpretation. Discharge - Discharge Clinical Impression: Syncope and collapse, Abrasion, left knee, initial encounter, Cervical spine pain Condition: Stable Disposition: HOME, SELF-CARE Instructions: Dizziness ([facility]), Near Syncopal Episode ([facility]), Syncopal Episode ([facility]) Additional Instructions: See your doctor in follow up. Rest, ice and elevate the left knee. Please see your doctor in follow up. Call them in the am. Return here for chest pain, shortness of breath, increasing pain or other concerns. Forms: Smoking Cessation Education Referrals: ELIZABETH SMALLS MD [Primary Care Provider] - 09/07/19 I personally performed the services described in the documentation, reviewed and edited the documentation which was dictated to the scribe in my presence, and it accurately records my words and actions.
[2019-09-06 20:45] VITALS: BP 143/91
--- NOTE | 2019-09-07 09:31 | EKG REPORT ---
SEVERITY:- ABNORMAL ECG - SINUS RHYTHM FIRST DEGREE AV BLOCK : Confirmed by: Tomasz Mir 07-Sep-2019 09:30:23
== END 2019-09-06 20:45 | disposition home or self-care (01) ==
LOC: ER 17:05
DX: S80.212A Abrasion, left knee, initial encounter (principal); M25.562 Pain in left knee; W18.30XA Fall on same level, unspecified, initial encounter; Y93.89 Activity, other specified; Y92.238 Other place in hospital as the place of occurrence of the external cause; M50.30 Other cervical disc degeneration, unspecified cervical region; M47.812 Spondylosis without myelopathy or radiculopathy, cervical region; R55 Syncope and collapse; R42 Dizziness and giddiness; R33.9 Retention of urine, unspecified; F17.210 Nicotine dependence, cigarettes, uncomplicated; I10 Essential (primary) hypertension; I25.2 Old myocardial infarction; J44.9 Chronic obstructive pulmonary disease, unspecified; E11.9 Type 2 diabetes mellitus without complications; Z88.1 Allergy status to other antibiotic agents; Z91.018 Allergy to other foods; Z88.8 Allergy status to other drugs, medicaments and biological substances; Z91.040 Latex allergy status; Z88.0 Allergy status to penicillin; Z91.048 Other nonmedicinal substance allergy status; Z91.041 Radiographic dye allergy status
CPT/HCPCS: 36415; 70450; 72125; 80053; 81001; 83690; 83735; 84484; 85025; 87086; 93005; 93010; 99284

== ENCOUNTER → 2019-09-29 | Outpatient (CLI) | payer BC ==
--- NOTE | 2019-09-30 09:01 | WOMENS IMAGING REPORT ---
EXAM DESCRIPTION: BILAT SCREENING MAMMO W/CAD IMAGES COMPLETED DATE/TIME: 09/29/2019 9:45 am REASON FOR STUDY: Z12.31 ENCNTR SCREEN MAMMOGRAM FOR MALIGNANT NEOPLASM OF BREAST Z12.31 ENCNTR SCR EEN MAMMOGRAM FOR MALIGNANT NEOPLASM OF [place] COMPARISON: Baseline study EXAM PARAMETERS: Standard craniocaudal and mediolateral oblique views of each breast recorded using digital acquisition. Read with the assistance of CAD. .[facility] - Data Elite Arrt Technologist Version 9.2 LIMITATIONS: None. FINDINGS: Findings present which are benign by mammographic criteria. No suspicious masses, calcifi cations or architectural distortion. Pertinent benign findings: Benign bilateral breast parenchymal calcifications. Benign bilateral well -circumscribed low-density mammographic masses. Benign mammographic findings may include one or more of the following: Smooth masses, popcorn/rim/co arse calcifications, asymmetries, post-procedure changes, and lesions with long-standing stability. IMPRESSION: BENIGN MAMMOGRAPHIC FINDINGS. BIRADS 2 BREAST DENSITY: b. There are scattered areas of fibroglandular density. BIRAD: ASSESSMENT: 2 BENIGN FINDING(S) RECOMMENDATION: ROUTINE SCREENING Please continue yearly bilateral screening mammography/tomosynthesis in September 2020. COMMENT: The patient has been notified of the results by letter per [place] requirements. Additional no tification policies are in place for contacting patient with suspicious or incomplete findings. Quality ID #[id number]: The [employer] recommends an annual screening mammogram for women aged 40 years or over. This facility utilizes a reminder system to ensure that all patients receive reminder letters, and/or direct phone calls for appointments. This includes reminders for routine scr eening mammograms, diagnostic mammograms, or other Breast Imaging Interventions when appropriate. Th is patient will be placed in the appropriate reminder system. TECHNICAL DOCUMENTATION: FINDING NUMBER: (1) ASSESSMENT: (1) JOB ID: [id number] 2010 [employer]- All Rights Reserved Reading location - IP/workstation name: [id number]
== END ==
LOC: WI 11:04
PROVIDERS: ATTEND Specialist
DX: Z12.31 Encounter for screening mammogram for malignant neoplasm of breast (principal)
CPT/HCPCS: 77067

== ENCOUNTER 2019-10-05 16:17 | Emergency (ER) | payer BC ==
--- NOTE | 2019-10-05 17:14 | ER Document Report ---
ED Medical Screen (RME) - General Chief Complaint: Neck Problem Stated Complaint: NECK PAIN Time Seen by Provider: 10/05/19 17:07 Primary Care Provider: ZAHIDA ALEX MD [Primary Care Provider] - Follow up as needed Mode of Arrival: Ambulatory Information source: Patient Notes: HPI; 44-year-old female past medical history significant for tonsil stones, thyroidectomy and parathyroidectomy presents to the emergency room complaining of swelling at the base of the throat that started yesterday. Patient states her ENT wanted to seen in the ER to have a CT to rule out abscess versus inflamed tonsils. Patient states it hurts to swallow but she is able to swallow. Denies any fevers. PE: Alert and oriented x3. No pharyngeal erythema. Mild swelling noted to the anterior neck. Positive anterior cervical lymphadenopathy. Negative for nuchal rigidity. lungs: Clear to auscultation without rales, rhonchi, wheezes. Heart: Regular rate and rhythm without murmurs, rubs, gallops.. I have greeted and performed a rapid initial assessment of this patient. A comprehensive ED assessment and evaluation of the patient, analysis of test results and completion of the medical decision making process will be conducted by additional ED providers. I have specifically instructed the patient or family members with the patient to immediately return to any nursing staff should anything change in the patient's condition or with their chief complaint. TRAVEL OUTSIDE OF THE [place] IN LAST 30 DAYS: No - Related Data Allergies/Adverse Reactions: Cephalosporins Allergy (Severe, Verified 08/12/19 08:12) Throat itching and swelling ciprofloxacin [From Cipro] Allergy (Severe, Verified 08/12/19 08:12) Blistering in mouth and throat ethyl alcohol Allergy (Severe, Verified 08/12/19 08:12) Shortness of Breath, cough, difficulty breathing fluticasone [From Flonase] Allergy (Severe, Verified 08/12/19 08:12) Migraine, nose bleed latex Allergy (Severe, Verified 08/12/19 08:12) RASH Penicillins Allergy (Severe, Verified 08/12/19 08:12) Throat swelling, difficulty breathing cephalexin [From Keflex] Allergy (Verified 08/12/19 08:12) Throat swelling, difficulty breathing dexlansoprazole [From Dexilant] Allergy (Verified 08/12/19 08:12) erythromycin base [From Erythrocin] Allergy (Verified 08/12/19 08:12) Hives fluoxetine [From Prozac] Allergy (Verified 08/12/19 08:12) metronidazole [From Flagyl] Allergy (Verified 08/12/19 08:12) Swelling of Throat prednisone Allergy (Verified 08/12/19 08:12) Tachycardia red dye Allergy (Verified 08/12/19 08:12) sertraline [From Zoloft] Allergy (Verified 08/12/19 08:12) sodium ferric gluconate complex [From Ferrlecit] Allergy (Verified 08/12/19 08:12) sucrose [From Ferrlecit] Allergy (Verified 08/12/19 08:12) aspirin Adverse Reaction (Verified 08/12/19 08:12) N&V Sulfa (Sulfonamide Antibiotics) Adverse Reaction (Verified 08/12/19 08:12) See Comments IV dye Allergy (Uncoded 08/12/19 08:12) arrhythmia vitamin B1 Allergy (Uncoded 08/12/19 08:12) Past Medical History - Social History Chew tobacco use (# tins/day): No Frequency of alcohol use: None Drug Abuse: None Family history: None - Past Medical History Cardiac Medical History: Reports: Hx Heart Attack - 2009, no stent, Hx Hypercholesterolemia, Hx Hypertension - HX OF, no meds Denies: Hx Coronary Artery Disease Pulmonary Medical History: Reports: Hx Asthma, Hx COPD - INHALERS Denies: Hx Bronchitis, Hx Pneumonia Neurological Medical History: Reports: Hx Migraine, Hx Seizures - NO MEDS - LAST 2013 - NOT CURRENT. Denies: Hx Cerebrovascular Accident Endocrine Medical History: Reports: Hx Diabetes Mellitus Type 2, Hx Hyperthyroidism Renal/ Medical History: Denies: Hx Peritoneal Dialysis GI Medical History: Reports: Hx Gastroesophageal Reflux Disease Musculoskeltal Medical History: Denies Hx Arthritis Psychiatric Medical History: Reports: Hx Depression Past Surgical History: Reports: Hx Abdominal Surgery, Hx Cholecystectomy, Hx Gynecologic Surgery, Hx Hysterectomy, Hx Nose Surgery, Hx Thyroid Surgery, Hx Tubal Ligation - Immunizations Immunizations up to date: Yes Hx Diphtheria, Pertussis, Tetanus Vaccination: No Physical Exam - Vital signs Vitals: Temp 98.7 F 10/05/19 16:17 Course - Vital Signs Vital signs: Temp Pulse Resp BP Pulse Ox 98.7 F 95 16 138/86 H 98 10/05/19 16:23 10/05/19 16:23 10/05/19 16:23 10/05/19 16:23 10/05/19 16:23 Doctor's Discharge - Discharge Referrals: ZAHIDA ALEX MD [Primary Care Provider] - Follow up as needed
[2019-10-05 17:42] LABS: ABSOLUTE EOSINOPHILS # (AUTO) 0.3 10^3/uL (0.0-0.6); ABSOLUTE LYMPHOCYTES (AUTO) 2.2 10^3/uL (0.5-4.7); ABSOLUTE MONOCYTES (AUTO) 0.6 10^3/uL (0.1-1.4); ABSOLUTE NEUT (AUTO) 5.3 10^3/uL (1.7-8.2); BASOPHILS % (AUTO) 0.5 % (0-2); EOSINOPHILS % (AUTO) 3.1 % (0-6); HEMATOCRIT 46.4 % (36.0-47.0); HEMOGLOBIN 16.1 g/dL (12.0-15.5); LYMPHOCYTES % (AUTO) 25.9 % (13-45); MEAN CORPUSCULAR HEMOGLOBIN 32.9 pg (27.0-33.4); MEAN CORPUSCULAR HGB CONC 34.8 g/dL (32.0-36.0); MEAN CORPUSCULAR VOLUME 95 fl (80-97); MONOCYTES % (AUTO) 6.8 % (3-13); PLATELET COUNT 181 10^3/uL (150-450); RED CELL DISTRIBUTION WIDTH 13.7 % (11.5-14.0); SEGMENTED NEUTROPHILS % (AUTO) 63.7 % (42-78); TOTAL CELLS COUNTED % (AUTO) 100 %; WHITE BLOOD COUNT 8.4 10^3/uL (4.0-10.5)
[2019-10-05 17:57] LABS: ALBUMIN 4.6 g/dL (3.5-5.0); ALKALINE PHOSPHATASE 53 U/L (38-126); ANION GAP 7 (5-19); ASPARTATE AMINO TRANSFERASE 18 U/L (14-36); BILIRUBIN,TOTAL 0.3 mg/dL (0.2-1.3); BLOOD UREA NITROGEN 10 mg/dL (7-20); CALCIUM 9.8 mg/dL (8.4-10.2); CARBON DIOXIDE 29 mmol/L (22-30); CHLORIDE 103 mmol/L (98-107); GLUCOSE 87 mg/dL (75-110); POTASSIUM 3.9 mmol/L (3.6-5.0); TOTAL PROTEIN 7.6 g/dL (6.3-8.2)
--- NOTE | 2019-10-05 20:46 | RADIOLOGY REPORT (SQ) ---
EXAM DESCRIPTION: RadLex: CT NECK WITHOUT IV CONTRAST CLINICAL HISTORY: 44 years Female; Dysphasia; TECHNIQUE: CT soft tissue neck without contrast All CT scans at this facility use dose modulation, iterative reconstruction, and/or weight based dosing when appropriate to reduce radiation dose to as low as reasonably achievable. COMPARISON: None. FINDINGS: No acute soft tissue edema. Epiglottis is normal. Larynx is unremarkable for noncontrast exam. No airway compromise. No prevertebral edema. No cervical adenopathy. Thyroid is surgically absent. Mild degenerative changes in the lower cervical spine. No acute bone findings. Visualized paranasal sinuses and mastoid air cells are clear. Lung apices are clear. IMPRESSION: 1. No acute findings 2. Previous thyroidectomy 3. No cervical adenopathy
--- NOTE | 2019-10-05 23:01 | ER Document Report ---
ED General - General Chief Complaint: Neck Problem Stated Complaint: NECK PAIN Time Seen by Provider: 10/05/19 17:07 Primary Care Provider: ZAHIDA ALEX MD [Primary Care Provider] - Follow up as needed Mode of Arrival: Ambulatory TRAVEL OUTSIDE OF THE [place] IN LAST 30 DAYS: No - HPI Notes: Patient is a 44-year-old female, status post thyroidectomy, parathyroidectomy, with a history of tonsilloliths, who presents to the ER for evaluation of swelli ng of the base of her throat. She states she always has some swelling and difficulty swallowing, but it seems to have worsened over the last 24 hours. Her ENT wanted to make sure that she did not have any tonsillar enlargement or abscess, so sent her to the ER for evaluation with a possible CT scan. The patient's had no fevers or chills. No nausea or vomiting. She has been taking medications as prescribed. She states that her difficulty swallowing is no different than normal. She is breathing without difficulty. - Related Data Allergies/Adverse Reactions: Cephalosporins Allergy (Severe, Verified 08/12/19 08:12) Throat itching and swelling ciprofloxacin [From Cipro] Allergy (Severe, Verified 08/12/19 08:12) Blistering in mouth and throat ethyl alcohol Allergy (Severe, Verified 08/12/19 08:12) Shortness of Breath, cough, difficulty breathing fluticasone [From Flonase] Allergy (Severe, Verified 08/12/19 08:12) Migraine, nose bleed latex Allergy (Severe, Verified 08/12/19 08:12) RASH Penicillins Allergy (Severe, Verified 08/12/19 08:12) Throat swelling, difficulty breathing cephalexin [From Keflex] Allergy (Verified 08/12/19 08:12) Throat swelling, difficulty breathing dexlansoprazole [From Dexilant] Allergy (Verified 08/12/19 08:12) erythromycin base [From Erythrocin] Allergy (Verified 08/12/19 08:12) Hives fluoxetine [From Prozac] Allergy (Verified 08/12/19 08:12) metronidazole [From Flagyl] Allergy (Verified 08/12/19 08:12) Swelling of Throat prednisone Allergy (Verified 08/12/19 08:12) Tachycardia red dye Allergy (Verified 08/12/19 08:12) sertraline [From Zoloft] Allergy (Verified 08/12/19 08:12) sodium ferric gluconate complex [From Ferrlecit] Allergy (Verified 08/12/19 08:12) sucrose [From Ferrlecit] Allergy (Verified 08/12/19 08:12) aspirin Adverse Reaction (Verified 08/12/19 08:12) N&V Sulfa (Sulfonamide Antibiotics) Adverse Reaction (Verified 08/12/19 08:12) See Comments IV dye Allergy (Uncoded 08/12/19 08:12) arrhythmia vitamin B1 Allergy (Uncoded 08/12/19 08:12) Home Medications: List reviewed with patient at bedside Past Medical History - General Information source: Patient - Social History Smoking Status: Current Every Day Smoker Chew tobacco use (# tins/day): No Frequency of alcohol use: None Drug Abuse: None Family History: Reviewed & Not Pertinent, Malignancy Patient has homicidal ideation: No - Past Medical History Cardiac Medical History: Reports: Hx Heart Attack - 2009, no stent, Hx Hypercholesterolemia, Hx Hypertension - HX OF, no meds Denies: Hx Coronary Artery Disease Pulmonary Medical History: Reports: Hx Asthma, Hx COPD - INHALERS Denies: Hx Bronchitis, Hx Pneumonia Neurological Medical History: Reports: Hx Migraine, Hx Seizures - NO MEDS - LAST 2013 - NOT CURRENT. Denies: Hx Cerebrovascular Accident Endocrine Medical History: Reports: Hx Diabetes Mellitus Type 2, Hx Hyperthyroi dism Renal/ Medical History: Denies: Hx Peritoneal Dialysis GI Medical History: Reports: Hx Gastroesophageal Reflux Disease Musculoskeletal Medical History: Denies Hx Arthritis Psychiatric Medical History: Reports: Hx Depression Past Surgical History: Reports: Hx Abdominal Surgery, Hx Cholecystectomy, Hx Gynecologic Surgery, Hx Hysterectomy, Hx Nose Surgery, Hx Thyroid Surgery, Hx Tubal Ligation - Immunizations Immunizations up to date: Yes Hx Diphtheria, Pertussis, Tetanus Vaccination: No Physical Exam - Vital signs Vitals: Temp 98.7 F 10/05/19 16:17 Course - Vital Signs Vital signs: Temp Pulse Resp BP Pulse Ox 98.7 F 95 16 138/86 H 98 10/05/19 16:23 10/05/19 16:23 10/05/19 16:23 10/05/19 16:23 10/05/19 16:23 - Laboratory Result Diagrams: 10/05/19 17:25 10/05/19 17:25 Laboratory results interpreted by me: 10/05/19 17:25 Hgb 16.1 H Discharge - Discharge Clinical Impression: Pharyngeal swelling Condition: Stable Disposition: HOME, SELF-CARE Additional Instructions: No clear cause for your symptoms was identified today. Follow up with your primary care provider and ENT providers next week. Return to the ER with worsening or new concerning symptoms. Referrals: ZAHIDA ALEX MD [Primary Care Provider] - Follow up as needed
[2019-10-05 23:17] VITALS: BP 124/74
== END 2019-10-05 23:17 | disposition home or self-care (01) ==
LOC: ER 16:17
DX: R09.89 Other specified symptoms and signs involving the circulatory and respiratory systems (principal); R13.10 Dysphagia, unspecified; E89.0 Postprocedural hypothyroidism; E89.2 Postprocedural hypoparathyroidism; I10 Essential (primary) hypertension; J44.9 Chronic obstructive pulmonary disease, unspecified; E11.9 Type 2 diabetes mellitus without complications; F17.200 Nicotine dependence, unspecified, uncomplicated; Z88.1 Allergy status to other antibiotic agents; Z91.018 Allergy to other foods; Z88.8 Allergy status to other drugs, medicaments and biological substances; Z91.040 Latex allergy status; Z88.0 Allergy status to penicillin; Z91.048 Other nonmedicinal substance allergy status; Z91.041 Radiographic dye allergy status
CPT/HCPCS: 36415; 70490; 80053; 84703; 85025; 99284

== ENCOUNTER 2019-10-29 20:32 | Emergency (ER) | payer BC ==
[2019-10-29 20:40] VITALS: BP 131/80
--- NOTE | 2019-10-29 21:08 | ER Document Report ---
ED Medical Screen (RME) - General Chief Complaint: Sinus Pain Stated Complaint: SINUS PROBLEM Time Seen by Provider: 10/29/19 20:55 Primary Care Provider: ZAHIDA ALEX MD [Primary Care Provider] - Follow up as needed Notes: Patient is a 44-year-old female who presents to the emergency department with a chief complaint of low oxygen saturation and sinus congestion. Patient states that she sees Dr. Hernandez from ENT at [facility] for her chronic sinus conditions. Patient states that she developed sinus pressure about an hour prior to arrival. Patient states that she put her pulse ox on her oxygen satu ration was 88% for a few minutes and then it went back up. She was told by her ENT to be evaluated if her oxygen saturation go down. Patient also reports white discharge. She has multiple allergies. Denies any fever. Exam: Tenderness to left maxillary sinus. I have greeted and performed a rapid initial assessment of this patient. A comprehensive ED assessment and evaluation of the patient, analysis of test results and completion of medical decision making process will be conducted by an additional ED providers. TRAVEL OUTSIDE OF THE [place] IN LAST 30 DAYS: No - Related Data Allergies/Adverse Reactions: Cephalosporins Allergy (Severe, Verified 08/12/19 08:12) Throat itching and swelling ciprofloxacin [From Cipro] Allergy (Severe, Verified 08/12/19 08:12) Blistering in mouth and throat ethyl alcohol Allergy (Severe, Verified 08/12/19 08:12) Shortness of Breath, cough, difficulty breathing fluticasone [From Flonase] Allergy (Severe, Verified 08/12/19 08:12) Migraine, nose bleed latex Allergy (Severe, Verified 08/12/19 08:12) RASH Penicillins Allergy (Severe, Verified 08/12/19 08:12) Throat swelling, difficulty breathing cephalexin [From Keflex] Allergy (Verified 08/12/19 08:12) Throat swelling, difficulty breathing dexlansoprazole [From Dexilant] Allergy (Verified 08/12/19 08:12) erythromycin base [From Erythrocin] Allergy (Verified 08/12/19 08:12) Hives fluoxetine [From Prozac] Allergy (Verified 08/12/19 08:12) metronidazole [From Flagyl] Allergy (Verified 08/12/19 08:12) Swelling of Throat prednisone Allergy (Verified 08/12/19 08:12) Tachycardia red dye Allergy (Verified 08/12/19 08:12) sertraline [From Zoloft] Allergy (Verified 08/12/19 08:12) sodium ferric gluconate complex [From Ferrlecit] Allergy (Verified 08/12/19 08:12) sucrose [From Ferrlecit] Allergy (Verified 08/12/19 08:12) aspirin Adverse Reaction (Verified 08/12/19 08:12) N&V Sulfa (Sulfonamide Antibiotics) Adverse Reaction (Verified 08/12/19 08:12) See Comments IV dye Allergy (Uncoded 08/12/19 08:12) arrhythmia vitamin B1 Allergy (Uncoded 08/12/19 08:12) Past Medical History - Social History Family history: None - Past Medical History Cardiac Medical History: Reports: Hx Heart Attack - 2009, no stent, Hx Hypercholesterolemia, Hx Hypertension - HX OF, no meds Denies: Hx Coronary Artery Disease Pulmonary Medical History: Reports: Hx Asthma, Hx COPD - INHALERS Denies: Hx Bronchitis, Hx Pneumonia Neurological Medical History: Reports: Hx Migraine, Hx Seizures - NO MEDS - LAST 2013 - NOT CURRENT. Denies: Hx Cerebrovascular Accident Endocrine Medical History: Reports: Hx Diabetes Mellitus Type 2, Hx Hyperthyroidism Renal/ Medical History: Denies: Hx Peritoneal Dialysis GI Medical History: Reports: Hx Gastroesophageal Reflux Disease Musculoskeltal Medical History: Denies Hx Arthritis Psychiatric Medical History: Reports: Hx Depression Past Surgical History: Reports: Hx Abdominal Surgery, Hx Cholecystectomy, Hx Gynecologic Surgery, Hx Hysterectomy, Hx Nose Surgery, Hx Thyroid Surgery, Hx Tubal Ligation - Immunizations Immunizations up to date: Yes Hx Diphtheria, Pertussis, Tetanus Vaccination: No Physical Exam - Vital signs Vitals: Temp Pulse Resp BP Pulse Ox 98.5 F 87 17 131/80 H 98 10/29/19 20:39 10/29/19 20:39 10/29/19 20:39 10/29/19 20:39 10/29/19 20:39 Course - Vital Signs Vital signs: Temp Pulse Resp BP Pulse Ox 98.5 F 87 17 131/80 H 98 10/29/19 20:39 10/29/19 20:39 10/29/19 20:39 10/29/19 20:39 10/29/19 20:39 Doctor's Discharge - Discharge Referrals: ZAHIDA ALEX MD [Primary Care Provider] - Follow up as needed
== END 2019-10-29 21:26 | disposition left against medical advice (07) ==
LOC: ER 20:32
DX: J34.89 Other specified disorders of nose and nasal sinuses (principal)
CPT/HCPCS: 99281

== ENCOUNTER 2019-10-31 19:57 | Emergency (ER) | payer BC ==
--- NOTE | 2019-10-31 20:42 | ER Document Report ---
ED Medical Screen (RME) - General Chief Complaint: Vaginal Bleeding Stated Complaint: VAGINAL BLEEDING Time Seen by Provider: 10/31/19 20:32 Primary Care Provider: ZAHIDA ALEX MD [Primary Care Provider] - Follow up as needed TRAVEL OUTSIDE OF THE [place] IN LAST 30 DAYS: No - HPI Notes: 10/31/19 20:39 44-year-old female with a complicated medical history presents to the emergency room for vaginal bleeding that started 4 days ago. Reports she started with light spotting, and as the days progressed she started to pass large clots and states today she had a clot the size of her fist that she passed. She states that the blood clot was so large that the toilet would not flush. Patient was supposed to have a cervical ablation done 3 or 6 months ago for vaginal bleeding however her menstrual cycle did stop for 3 months. Reports last month she did have a cycle that lasted about 8 days long which she was not concerned about since she had not had a menstrual cycle for 3 months. Then she started with a vaginal bleeding and slight abdominal cramping 4 days ago. Has not tried any [id number] medications. Patient states she is going through one tampon and 1 overnight pad every 1-2 hours today. I have greeted and performed a rapid initial assessment of this patient. A comprehensive ED assessment and evaluation of the patient, analysis of test results and completion of the medical decision making process will be conducted by additional ED providers. PHYSICAL EXAMINATION: GENERAL: Well-appearing, well-nourished and in no acute distress. NECK: Normal range of motion CV: s1, s2 regular LUNGS: No respiratory distress abd: suprapubic pain Musculoskeletal: Normal range of motion NEUROLOGICAL: Normal speech, normal gait. SKIN: Warm, Dry, normal turgor, no rashes or lesions noted. - Related Data Allergies/Adverse Reactions: Cephalosporins Allergy (Severe, Verified 08/12/19 08:12) Throat itching and swelling ciprofloxacin [From Cipro] Allergy (Severe, Verified 08/12/19 08:12) Blistering in mouth and throat ethyl alcohol Allergy (Severe, Verified 08/12/19 08:12) Shortness of Breath, cough, difficulty breathing fluticasone [From Flonase] Allergy (Severe, Verified 08/12/19 08:12) Migraine, nose bleed latex Allergy (Severe, Verified 08/12/19 08:12) RASH Penicillins Allergy (Severe, Verified 08/12/19 08:12) Throat swelling, difficulty breathing cephalexin [From Keflex] Allergy (Verified 08/12/19 08:12) Throat swelling, difficulty breathing dexlansoprazole [From Dexilant] Allergy (Verified 08/12/19 08:12) erythromycin base [From Erythrocin] Allergy (Verified 08/12/19 08:12) Hives fluoxetine [From Prozac] Allergy (Verified 08/12/19 08:12) metronidazole [From Flagyl] Allergy (Verified 08/12/19 08:12) Swelling of Throat prednisone Allergy (Verified 08/12/19 08:12) Tachycardia red dye Allergy (Verified 08/12/19 08:12) sertraline [From Zoloft] Allergy (Verified 08/12/19 08:12) sodium ferric gluconate complex [From Ferrlecit] Allergy (Verified 08/12/19 08:12) sucrose [From Ferrlecit] Allergy (Verified 08/12/19 08:12) aspirin Adverse Reaction (Verified 08/12/19 08:12) N&V Sulfa (Sulfonamide Antibiotics) Adverse Reaction (Verified 08/12/19 08:12) See Comments IV dye Allergy (Uncoded 08/12/19 08:12) arrhythmia vitamin B1 Allergy (Uncoded 08/12/19 08:12) Past Medical History - Social History Family history: None - Past Medical History Cardiac Medical History: Reports: Hx Heart Attack - 2009, no stent, Hx Hypercholesterolemia, Hx Hypertension - HX OF, no meds Denies: Hx Coronary Artery Disease Pulmonary Medical History: Reports: Hx Asthma, Hx COPD - INHALERS Denies: Hx Bronchitis, Hx Pneumonia Neurological Medical History: Reports: Hx Migraine, Hx Seizures - NO MEDS - LAST 2013 - NOT CURRENT. Denies: Hx Cerebrovascular Accident Endocrine Medical History: Reports: Hx Diabetes Mellitus Type 2, Hx Hyperthyroidism Renal/ Medical History: Denies: Hx Peritoneal Dialysis GI Medical History: Reports: Hx Gastroesophageal Reflux Disease Musculoskeltal Medical History: Denies Hx Arthritis Psychiatric Medical History: Reports: Hx Depression Past Surgical History: Reports: Hx Abdominal Surgery, Hx Cholecystectomy, Hx Gynecologic Surgery, Hx Hysterectomy, Hx Nose Surgery, Hx Thyroid Surgery, Hx Tubal Ligation - Immunizations Immunizations up to date: Yes Hx Diphtheria, Pertussis, Tetanus Vaccination: No Physical Exam - Vital signs Vitals: Temp Pulse Resp BP Pulse Ox 98.6 F 86 16 131/84 H 98 10/31/19 20:02 10/31/19 20:02 10/31/19 20:02 10/31/19 20:02 10/31/19 20:02 Course - Vital Signs Vital signs: Temp Pulse Resp BP Pulse Ox 98.6 F 86 16 131/84 H 98 10/31/19 20:02 10/31/19 20:02 10/31/19 20:02 10/31/19 20:02 10/31/19 20:02 Doctor's Discharge - Discharge Referrals: ZAHIDA ALEX MD [Primary Care Provider] - Follow up as needed
[2019-10-31 21:45] LABS: APPEARANCE,URINE SLIGHTLY-CLOUDY; BILIRUBIN,URINE NEGATIVE (NEGATIVE); COLOR,URINE YELLOW; GLUCOSE, URINE NEGATIVE (NEGATIVE); KETONES,URINE NEGATIVE (NEGATIVE); LEUKOCYTE ESTERASE,URINE MODERATE (NEGATIVE); NITRITE,URINE NEGATIVE (NEGATIVE); PROTEIN,URINE NEGATIVE (NEGATIVE); URINE SPECIFIC GRAVITY 1.017
[2019-10-31 21:48] LABS: ABSOLUTE BASOPHILS # (AUTO) 0.1 10^3/uL (0.0-0.2); ABSOLUTE EOSINOPHILS # (AUTO) 0.3 10^3/uL (0.0-0.6); ABSOLUTE LYMPHOCYTES (AUTO) 2.4 10^3/uL (0.5-4.7); ABSOLUTE MONOCYTES (AUTO) 0.6 10^3/uL (0.1-1.4); ABSOLUTE NEUT (AUTO) 5.4 10^3/uL (1.7-8.2); BASOPHILS % (AUTO) 0.6 % (0-2); EOSINOPHILS % (AUTO) 3.2 % (0-6); HEMATOCRIT 43.7 % (36.0-47.0); HEMOGLOBIN 15.2 g/dL (12.0-15.5); LYMPHOCYTES % (AUTO) 27.3 % (13-45); MEAN CORPUSCULAR HEMOGLOBIN 33.6 pg (27.0-33.4); MEAN CORPUSCULAR HGB CONC 34.9 g/dL (32.0-36.0); MEAN CORPUSCULAR VOLUME 96 fl (80-97); MONOCYTES % (AUTO) 7.4 % (3-13); PLATELET COUNT 205 10^3/uL (150-450); RED BLOOD COUNT 4.53 10^6/uL (3.72-5.28); RED CELL DISTRIBUTION WIDTH 12.8 % (11.5-14.0); SEGMENTED NEUTROPHILS % (AUTO) 61.5 % (42-78); TOTAL CELLS COUNTED % (AUTO) 100 %; WHITE BLOOD COUNT 8.7 10^3/uL (4.0-10.5)
[2019-10-31 21:57] LABS: ALBUMIN 4.8 g/dL (3.5-5.0); ALKALINE PHOSPHATASE 58 U/L (38-126); ANION GAP 7 (5-19); ASPARTATE AMINO TRANSFERASE 20 U/L (14-36); BILIRUBIN,DIRECT 0.2 mg/dL (0.0-0.4); BILIRUBIN,TOTAL 0.4 mg/dL (0.2-1.3); BLOOD UREA NITROGEN 9 mg/dL (7-20); CALCIUM 9.9 mg/dL (8.4-10.2); CARBON DIOXIDE 29 mmol/L (22-30); CHLORIDE 103 mmol/L (98-107); GLUCOSE 100 mg/dL (75-110); POTASSIUM 3.9 mmol/L (3.6-5.0); TOTAL PROTEIN 7.5 g/dL (6.3-8.2)
--- NOTE | 2019-10-31 21:58 | RADIOLOGY REPORT (SQ) ---
US PELVIS TRANSVAGINAL HISTORY: 44 years Female vaginal bleeding. Pelvic pain. COMPARISON: No relevant studies are available for comparison. Technique: Transabdominal and endovaginal Imaging of the pelvis was performed. Color and spectral imaging was performed. Uterus: The uterus is anteverted. It measures 9.8 x 6.1 x 4.8 cm. There is a small nabothian cysts in the cervix. The cervix is closed and measures 2.6 cm. The endometrium is normal and measures 7 mm. Right Ovary: The ovary measures 3.1 x 1.9 x 1.9 cm. Morphology is normal.. Normal color and spectral doppler waveforms Left Ovary: The ovary measures 2.3 x 1.6 x 1.5 cm. Morphology is normal. Normal color and spectral doppler waveforms Other: No adnexal mass. No free fluid. IMPRESSION: Unremarkable pelvic ultrasound. No acute process.
[2019-11-01 00:17] VITALS: BP 125/81
--- NOTE | 2019-11-01 01:04 | ER Document Report ---
ED GI/ - General Chief Complaint: Vaginal Bleeding Stated Complaint: VAGINAL BLEEDING Time Seen by Provider: 10/31/19 20:32 Primary Care Provider: ZAHIDA REYNA MD [Primary Care Provider] - Follow up as needed Notes: 44-year-old female patient presenting to the emergency department with intermittent abnormal vaginal bleeding. She states she is pending a uterine ablation. Over the last few days she states she has passed a few large clots. She reports her bleeding has now stopped. She reports that she is unable to take any hormone-based treatment for her bleeding due to cardiac issues. She denies any fever, chills, nausea, vomiting or episodes of syncope. TRAVEL OUTSIDE OF THE [place] IN LAST 30 DAYS: No - Related Data Allergies/Adverse Reactions: Cephalosporins Allergy (Severe, Verified 08/12/19 08:12) Throat itching and swelling ciprofloxacin [From Cipro] Allergy (Severe, Verified 08/12/19 08:12) Blistering in mouth and throat ethyl alcohol Allergy (Severe, Verified 08/12/19 08:12) Shortness of Breath, cough, difficulty breathing fluticasone [From Flonase] Allergy (Severe, Verified 08/12/19 08:12) Migraine, nose bleed latex Allergy (Severe, Verified 08/12/19 08:12) RASH Penicillins Allergy (Severe, Verified 08/12/19 08:12) Throat swelling, difficulty breathing cephalexin [From Keflex] Allergy (Verified 08/12/19 08:12) Throat swelling, difficulty breathing dexlansoprazole [From Dexilant] Allergy (Verified 08/12/19 08:12) erythromycin base [From Erythrocin] Allergy (Verified 08/12/19 08:12) Hives fluoxetine [From Prozac] Allergy (Verified 08/12/19 08:12) metronidazole [From Flagyl] Allergy (Verified 08/12/19 08:12) Swelling of Throat prednisone Allergy (Verified 08/12/19 08:12) Tachycardia red dye Allergy (Verified 08/12/19 08:12) sertraline [From Zoloft] Allergy (Verified 08/12/19 08:12) sodium ferric gluconate complex [From Ferrlecit] Allergy (Verified 08/12/19 08:12) sucrose [From Ferrlecit] Allergy (Verified 08/12/19 08:12) aspirin Adverse Reaction (Verified 08/12/19 08:12) N&V Sulfa (Sulfonamide Antibiotics) Adverse Reaction (Verified 08/12/19 08:12) See Comments IV dye Allergy (Uncoded 08/12/19 08:12) arrhythmia vitamin B1 Allergy (Uncoded 08/12/19 08:12) Home Medications: tums, omeprsazole, levothyroxine, vit b1, vit d, folate, colace-prn. Past Medical History - General Information source: Patient - Social History Smoking Status: Current Every Day Smoker Family History: Reviewed & Not Pertinent, Malignancy - Past Medical History Cardiac Medical History: Reports: Hx Heart Attack - 2009, no stent, Hx Hypercholesterolemia, Hx Hypertension - HX OF, no meds Denies: Hx Coronary Artery Disease Pulmonary Medical History: Reports: Hx Asthma, Hx COPD - INHALERS Denies: Hx Bronchitis, Hx Pneumonia Neurological Medical History: Reports: Hx Migraine, Hx Seizures - NO MEDS - LAST 2013 - NOT CURRENT. Denies: Hx Cerebrovascular Accident Endocrine Medical History: Reports: Hx Diabetes Mellitus Type 2, Hx Hyperthyroidism Renal/ Medical History: Denies: Hx Peritoneal Dialysis GI Medical History: Reports: Hx Gastroesophageal Reflux Disease Musculoskeletal Medical History: Denies Hx Arthritis Psychiatric Medical History: Reports: Hx Depression Past Surgical History: Reports: Hx Abdominal Surgery, Hx Cholecystectomy, Hx Gynecologic Surgery, Hx Hysterectomy, Hx Nose Surgery, Hx Thyroid Surgery, Hx Tubal Ligation - Immunizations Immunizations up to date: Yes Hx Diphtheria, Pertussis, Tetanus Vaccination: No Review of Systems - Review of Systems Constitutional: No symptoms reported EENT: No symptoms reported Cardiovascular: No symptoms reported Respiratory: No symptoms reported Gastrointestinal: No symptoms reported Genitourinary: No symptoms reported Female Genitourinary: Irregular period, Vaginal bleeding Musculoskeletal: No symptoms reported Skin: No symptoms reported Hematologic/Lymphatic: No symptoms reported Neurological/Psychological: No symptoms reported Physical Exam - Vital signs Vitals: Temp Pulse Resp BP Pulse Ox 98.6 F 86 16 131/84 H 98 10/31/19 20:02 10/31/19 20:02 10/31/19 20:02 10/31/19 20:02 10/31/19 20:02 - Notes Notes: PHYSICAL EXAMINATION: GENERAL: Well-appearing, well-nourished and in no acute distress. HEAD: Atraumatic, normocephalic. EYES: Pupils equal round and reactive to light, extraocular movements intact, conjunctiva are normal. ENT: Nares patent, oropharynx clear without exudates. Moist mucous membranes. NECK: Normal range of motion, supple without lymphadenopathy LUNGS: Breath sounds clear to auscultation bilaterally and equal. No wheezes rales or rhonchi. HEART: Regular rate and rhythm without murmurs ABDOMEN: Soft, nontender, nondistended abdomen. No guarding, no rebound. No masses appreciated. Female : deferred Musculoskeletal: Normal range of motion, no pitting or edema. No cyanosis. NEUROLOGICAL: Cranial nerves grossly intact. Normal speech, normal gait. Normal sensory, motor exams PSYCH: Normal mood, normal affect. SKIN: Warm, Dry, normal turgor, no rashes or lesions noted. Course - Re-evaluation Re-evalutation: 11/01/19 01:04 Laboratory 10/31/19 10/31/19 10/31/19 21:23 21:23 21:23 WBC 8.7 RBC 4.53 Hgb 15.2 Hct 43.7 MCV 96 MCH 33.6 H MCHC 34.9 RDW 12.8 Plt Count 205 Lymph % (Auto) 27.3 Dupage % (Auto) 7.4 Eos % (Auto) 3.2 Baso % (Auto) 0.6 Absolute Neuts (auto) 5.4 Absolute Lymphs (auto) 2.4 Absolute Monos (auto) 0.6 Absolute Eos (auto) 0.3 Absolute Basos (auto) 0.1 Seg Neutrophils % 61.5 Sodium 139.4 Potassium 3.9 Chloride 103 Carbon Dioxide 29 Anion Gap 7 BUN 9 Creatinine 0.85 Est GFR ( Amer) > 60 Est GFR (MDRD) Non-Af > 60 Glucose 100 Calcium 9.9 Total Bilirubin 0.4 Direct Bilirubin 0.2 Neonat Total Bilirubin Not Reportable Neonat Direct Bilirubin Not Reportable Neonat Indirect Bili Not Reportable AST 20 ALT 14 Alkaline Phosphatase 58 Total Protein 7.5 Albumin 4.8 Urine Color YELLOW Urine Appearance SLIGHTLY-CLOUDY Urine pH 6.0 Ur Specific Barnard 1.017 Urine Protein NEGATIVE Urine Glucose (UA) NEGATIVE Urine Ketones NEGATIVE Urine Blood MODERATE H Urine Nitrite NEGATIVE Urine Bilirubin NEGATIVE Urine Urobilinogen 2.0 H Ur Leukocyte Esterase MODERATE H Urine WBC (Auto) 33 Urine RBC (Auto) 5 Squamous Epi Cells Auto 1 Urine Mucus (Auto) OCC Urine Ascorbic Acid NEGATIVE Urine HCG, Qual NEGATIVE Transvaginal US 10/31/19 20:38 IMPRESSION: Unremarkable pelvic ultrasound. No acute process. Patient appears well, nontoxic, vital signs within normal limits. Hemoglobin and hematocrit are within acceptable ranges. Patient reports she is not bleeding at this time. We will not do a pelvic exam due to that reason. Transvaginal ultrasound shows no acute processes. Patient is pending encouraged her to follow-up with him. - Vital Signs Vital signs: Temp Pulse Resp BP Pulse Ox 98.1 F 78 20 125/81 100 11/01/19 00:16 11/01/19 02:01 11/01/19 02:01 11/01/19 00:16 11/01/19 02:01 - Laboratory Result Diagrams: 10/31/19 21:23 10/31/19 21:23 Laboratory results interpreted by me: 10/31/19 10/31/19 21:23 21:23 MCH 33.6 H Urine Blood MODERATE H Urine Urobilinogen 2.0 H Ur Leukocyte Esterase MODERATE H Discharge - Discharge Clinical Impression: Vaginal bleeding Condition: Stable Disposition: HOME, SELF-CARE Additional Instructions: As discussed your work-up today was reassuring. Please call Dr. Reyna's office and schedule a follow-up. Return if worsening. Referrals: ZAHIDA REYNA MD [Primary Care Provider] - Follow up as needed
== END 2019-11-01 02:02 | disposition home or self-care (01) ==
LOC: ER 19:57
DX: N93.8 Other specified abnormal uterine and vaginal bleeding (principal); F17.200 Nicotine dependence, unspecified, uncomplicated; E78.00 Pure hypercholesterolemia, unspecified; E11.9 Type 2 diabetes mellitus without complications; I10 Essential (primary) hypertension; I25.2 Old myocardial infarction; Z88.2 Allergy status to sulfonamides
CPT/HCPCS: 36415; 76830; 80053; 81001; 81025; 85025; 99284

== ENCOUNTER 2019-11-01 14:26 | Emergency (ER) | payer BC ==
--- NOTE | 2019-11-01 14:56 | ER Document Report ---
ED Medical Screen (RME) - General Chief Complaint: Chest Pain > 30 Stated Complaint: CHEST PAIN Time Seen by Provider: 11/01/19 14:49 Primary Care Provider: ZAHIDA ALEX MD [Primary Care Provider] - Follow up as needed Mode of Arrival: Ambulatory Information source: Patient Notes: 44-year-old female presented to ED for complaint of chest pain and low blood pressure at home. She states her blood pressure was 89/69 at home. I did recheck it while I was talking to her and her blood pressure was 107/68. She is alert oriented respirations regular nonlabored speaking in full sentences. She states her blood pressure was better when she got it checked foot. She states she was also here last night for passing a large blood clot. She states she did not have her menstrual cycle for 3 months and then a month ago she had spotting and then her cycle started on the she had spotting for 4 days then got heavier than yesterday she had a big blood clot would not flush down the commode so she became very concerned. States she is anemic. 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 She states a lot of her hormones are all off. She states her thyroid levels have been completely off. Patient is alert oriented respirations regular nonlabored speaking in full sentences I have greeted and performed a rapid initial assessment of this patient. A comprehensive ED assessment and evaluation of the patient, analysis of test results and completion of medical decision making process will be conducted by an additional ED providers. TRAVEL OUTSIDE OF THE [place] IN LAST 30 DAYS: No - Related Data Allergies/Adverse Reactions: Cephalosporins Allergy (Severe, Verified 08/12/19 08:12) Throat itching and swelling ciprofloxacin [From Cipro] Allergy (Severe, Verified 08/12/19 08:12) Blistering in mouth and throat ethyl alcohol Allergy (Severe, Verified 08/12/19 08:12) Shortness of Breath, cough, difficulty breathing fluticasone [From Flonase] Allergy (Severe, Verified 08/12/19 08:12) Migraine, nose bleed latex Allergy (Severe, Verified 08/12/19 08:12) RASH Penicillins Allergy (Severe, Verified 08/12/19 08:12) Throat swelling, difficulty breathing cephalexin [From Keflex] Allergy (Verified 08/12/19 08:12) Throat swelling, difficulty breathing dexlansoprazole [From Dexilant] Allergy (Verified 08/12/19 08:12) erythromycin base [From Erythrocin] Allergy (Verified 08/12/19 08:12) Hives fluoxetine [From Prozac] Allergy (Verified 08/12/19 08:12) metronidazole [From Flagyl] Allergy (Verified 08/12/19 08:12) Swelling of Throat prednisone Allergy (Verified 08/12/19 08:12) Tachycardia red dye Allergy (Verified 08/12/19 08:12) sertraline [From Zoloft] Allergy (Verified 08/12/19 08:12) sodium ferric gluconate complex [From Ferrlecit] Allergy (Verified 08/12/19 08:12) sucrose [From Ferrlecit] Allergy (Verified 08/12/19 08:12) aspirin Adverse Reaction (Verified 08/12/19 08:12) N&V Sulfa (Sulfonamide Antibiotics) Adverse Reaction (Verified 08/12/19 08:12) See Comments IV dye Allergy (Uncoded 08/12/19 08:12) arrhythmia vitamin B1 Allergy (Uncoded 08/12/19 08:12) Past Medical History - Social History Family history: None - Past Medical History Cardiac Medical History: Reports: Hx Heart Attack - 2009, no stent, Hx Hypercholesterolemia, Hx Hypertension - HX OF, no meds Denies: Hx Coronary Artery Disease Pulmonary Medical History: Reports: Hx Asthma, Hx COPD - INHALERS Denies: Hx Bronchitis, Hx Pneumonia Neurological Medical History: Reports: Hx Migraine, Hx Seizures - NO MEDS - LAST 2013 - NOT CURRENT. Denies: Hx Cerebrovascular Accident Endocrine Medical History: Reports: Hx Diabetes Mellitus Type 2, Hx Hyperthyroidism Renal/ Medical History: Denies: Hx Peritoneal Dialysis GI Medical History: Reports: Hx Gastroesophageal Reflux Disease Musculoskeltal Medical History: Denies Hx Arthritis Psychiatric Medical History: Reports: Hx Depression Past Surgical History: Reports: Hx Abdominal Surgery, Hx Cholecystectomy, Hx Gynecologic Surgery, Hx Hysterectomy, Hx Nose Surgery, Hx Thyroid Surgery, Hx Tubal Ligation - Immunizations Immunizations up to date: Yes Hx Diphtheria, Pertussis, Tetanus Vaccination: No Physical Exam - Vital signs Vitals: Temp Pulse Resp BP Pulse Ox 98.9 F 80 20 121/78 97 11/01/19 14:35 11/01/19 14:35 11/01/19 14:35 11/01/19 14:35 11/01/19 14:35 Course - Vital Signs Vital signs: Temp Pulse Resp BP Pulse Ox 98.9 F 80 20 121/78 97 11/01/19 14:35 11/01/19 14:35 11/01/19 14:35 11/01/19 14:35 11/01/19 14:35 Doctor's Discharge - Discharge Referrals: ZAHIDA ALEX MD [Primary Care Provider] - Follow up as needed
--- NOTE | 2019-11-01 15:13 | RADIOLOGY REPORT (SQ) ---
EXAM DESCRIPTION: CHEST 2 VIEWS IMAGES COMPLETED DATE/TIME: 11/01/2019 3:06 pm REASON FOR STUDY: chest pain COMPARISON: 08/28/2019 EXAM PARAMETERS: NUMBER OF VIEWS: two views TECHNIQUE: Digital Frontal and Lateral radiographic views of the chest acquired. RADIATION DOSE: NA LIMITATIONS: none FINDINGS: LUNGS AND PLEURA: No opacities, masses or pneumothorax. No pleural effusion. MEDIASTINUM AND HILAR STRUCTURES: No masses or contour abnormalities. HEART AND VASCULAR STRUCTURES: Heart normal size. No evidence for failure. BONES: No acute findings. HARDWARE: None in the chest. OTHER: No other significant finding. IMPRESSION: NO ACUTE RADIOGRAPHIC FINDING IN THE CHEST. TECHNICAL DOCUMENTATION: JOB ID: [id number] 2010 [employer]- All Rights Reserved Reading location - IP/workstation name: [email or web address]
[2019-11-01 15:56] LABS: ABSOLUTE BASOPHILS # (AUTO) 0.1 10^3/uL (0.0-0.2); ABSOLUTE EOSINOPHILS # (AUTO) 0.3 10^3/uL (0.0-0.6); ABSOLUTE LYMPHOCYTES (AUTO) 1.8 10^3/uL (0.5-4.7); ABSOLUTE MONOCYTES (AUTO) 0.5 10^3/uL (0.1-1.4); ABSOLUTE NEUT (AUTO) 5.2 10^3/uL (1.7-8.2); BASOPHILS % (AUTO) 0.7 % (0-2); EOSINOPHILS % (AUTO) 3.8 % (0-6); HEMATOCRIT 42.9 % (36.0-47.0); HEMOGLOBIN 15.2 g/dL (12.0-15.5); LYMPHOCYTES % (AUTO) 23.4 % (13-45); MEAN CORPUSCULAR HEMOGLOBIN 34.1 pg (27.0-33.4); MEAN CORPUSCULAR HGB CONC 35.5 g/dL (32.0-36.0); MEAN CORPUSCULAR VOLUME 96 fl (80-97); MONOCYTES % (AUTO) 5.8 % (3-13); PLATELET COUNT 188 10^3/uL (150-450); RED BLOOD COUNT 4.45 10^6/uL (3.72-5.28); RED CELL DISTRIBUTION WIDTH 13.1 % (11.5-14.0); SEGMENTED NEUTROPHILS % (AUTO) 66.3 % (42-78); TOTAL CELLS COUNTED % (AUTO) 100 %; WHITE BLOOD COUNT 7.9 10^3/uL (4.0-10.5)
[2019-11-01 16:03] LABS: ALBUMIN 4.6 g/dL (3.5-5.0); ALKALINE PHOSPHATASE 67 U/L (38-126); ANION GAP 9 (5-19); ASPARTATE AMINO TRANSFERASE 21 U/L (14-36); BILIRUBIN,DIRECT 0.3 mg/dL (0.0-0.4); BILIRUBIN,TOTAL 0.5 mg/dL (0.2-1.3); BLOOD UREA NITROGEN 11 mg/dL (7-20); CALCIUM 9.7 mg/dL (8.4-10.2); CARBON DIOXIDE 27 mmol/L (22-30); CHLORIDE 104 mmol/L (98-107); GLUCOSE 99 mg/dL (75-110); POTASSIUM 4.3 mmol/L (3.6-5.0); TOTAL PROTEIN 7.2 g/dL (6.3-8.2)
[2019-11-01 16:18] LABS: FREE T3 2.56 pg/mL (2.77-5.27); FREE T4 (FREE THYROXINE) 1.38 ng/dL (0.78-2.19)
[2019-11-01 16:32] LABS: THYROID STIMULATING HORMONE 5.68 uIU/mL (0.47-4.68)
--- NOTE | 2019-11-01 18:04 | ER Document Report ---
ED Cardiac - General Chief Complaint: Chest Pain > 30 Stated Complaint: CHEST PAIN Time Seen by Provider: 11/01/19 14:49 Primary Care Provider: ZAHIDA ALEX MD [EMERITUS] - Follow up in 3-5 days Mode of Arrival: Ambulatory TRAVEL OUTSIDE OF THE [place] IN LAST 30 DAYS: No - HPI Patient complains to provider of: Chest pain. denies: Shortness of breath Chest pain location: Substernal. No: Pleuritic Quality of pain: None Chest pain radiation location: None Severity now: None Cardiac risk factors: Diabetes, Hypertension, Hx WV Associated symptoms: Fatigue, Hypotension, Lightheaded. denies: Abdominal pain, Jaw pain, Shortness of breath, Syncope Exacerbated by: denies: Deep breaths Relieved by: Rest Similar symptoms previously: Yes Recently seen / treated by doctor: Yes Notes: Patient is a 44-year-old female with a complicated medical history including MTHFR mutation, hypothyroidism status post thyroid resection who presents with an episode of hypotension and chest discomfort. Patient states that she was in the ER yesterday for passing a blood clot vaginally. She had a normal work-up and was discharged home. Patient states that she had an ENT appointment today and a GI appointment in the office. She did not have a scope done recently. She came home and had an episode of chest pressure. She states she has had this before. She took her blood pressure 3 times at home and the lowest measurement was 89 systolic which prompted her to come to the ED. Patient states she has been fatigued but this is attributable to her deficiencies from the MTHFR. She states she is due to have her methyl folate delivered to her house. Her and her PCP expect that this will help her symptoms and vitamin deficiencies. She has been very closely working with the PCP. She also has follow-up with cardiology as she states she has had a small WV in the past. She has had a stress test and echo recently. Patient is aware that her TSH has been high. She states it was 7.11 previously. Her and her PCP are also working with her levothyroxine in regards to this. Patient states that her chest pain has resolved. She has chronic discomfort due to neuropathy but this is not new. She states she still feels fatigued but this is not new either. She also has chronic abdominal pain and neck pain which is not new. - Related Data Allergies/Adverse Reactions: Cephalosporins Allergy (Severe, Verified 08/12/19 08:12) Throat itching and swelling ciprofloxacin [From Cipro] Allergy (Severe, Verified 08/12/19 08:12) Blistering in mouth and throat ethyl alcohol Allergy (Severe, Verified 08/12/19 08:12) Shortness of Breath, cough, difficulty breathing fluticasone [From Flonase] Allergy (Severe, Verified 08/12/19 08:12) Migraine, nose bleed latex Allergy (Severe, Verified 08/12/19 08:12) RASH Penicillins Allergy (Severe, Verified 08/12/19 08:12) Throat swelling, difficulty breathing cephalexin [From Keflex] Allergy (Verified 08/12/19 08:12) Throat swelling, difficulty breathing dexlansoprazole [From Dexilant] Allergy (Verified 08/12/19 08:12) erythromycin base [From Erythrocin] Allergy (Verified 08/12/19 08:12) Hives fluoxetine [From Prozac] Allergy (Verified 08/12/19 08:12) metronidazole [From Flagyl] Allergy (Verified 08/12/19 08:12) Swelling of Throat prednisone Allergy (Verified 08/12/19 08:12) Tachycardia red dye Allergy (Verified 08/12/19 08:12) sertraline [From Zoloft] Allergy (Verified 08/12/19 08:12) sodium ferric gluconate complex [From Ferrlecit] Allergy (Verified 08/12/19 08:12) sucrose [From Ferrlecit] Allergy (Verified 08/12/19 08:12) aspirin Adverse Reaction (Verified 08/12/19 08:12) N&V Sulfa (Sulfonamide Antibiotics) Adverse Reaction (Verified 08/12/19 08:12) See Comments IV dye Allergy (Uncoded 08/12/19 08:12) arrhythmia vitamin B1 Allergy (Uncoded 08/12/19 08:12) Past Medical History - General Information source: Patient - Social History Smoking Status: Unknown if Ever Smoked Family History: Reviewed & Not Pertinent, Malignancy - Past Medical History Cardiac Medical History: Reports: Hx Heart Attack - 2010, no stent, Hx Hypercholesterolemia, Hx Hypertension - HX OF, no meds Denies: Hx Coronary Artery Disease Pulmonary Medical History: Reports: Hx Asthma, Hx COPD - INHALERS Denies: Hx Bronchitis, Hx Pneumonia Neurological Medical History: Reports: Hx Migraine, Hx Seizures - NO MEDS - LAST 2013 - NOT CURRENT. Denies: Hx Cerebrovascular Accident Endocrine Medical History: Reports: Hx Diabetes Mellitus Type 2, Hx Hyperthyroidism Renal/ Medical History: Denies: Hx Peritoneal Dialysis GI Medical History: Reports: Hx Gastroesophageal Reflux Disease Musculoskeletal Medical History: Denies Hx Arthritis Psychiatric Medical History: Reports: Hx Depression Past Surgical History: Reports: Hx Abdominal Surgery, Hx Cholecystectomy, Hx Gynecologic Surgery, Hx Hysterectomy, Hx Nose Surgery, Hx Thyroid Surgery, Hx Tubal Ligation - Immunizations Immunizations up to date: Yes Hx Diphtheria, Pertussis, Tetanus Vaccination: No Review of Systems - Review of Systems Notes: CONSTITUTIONAL: No fever. Positive for chronic fatigue. SKIN: No rash. HENT: No congestion, ear pain, or sore throat. EYES: No recent vision problems or eye pain. ENDOCRINE: Positive for hypothyroidism. No polyuria or polydipsia. CARDIOVASCULAR: Positive for chest pain. No pleuritic pain. RESPIRATORY: No cough, shortness of breath, congestion, or wheezing. GASTROINTESTINAL: Chronic abdominal pain. No nausea, vomiting, bloody stools or diarrhea. GENITOURINARY: No dysuria. MUSCULOSKELETAL: No joint pain or swelling. LYMPHATIC: No swollen glands. NEUROLOGIC: No seizures. No headache, focal weakness or sensory changes. HEMATOLOGIC: No unusual bruising or bleeding. PSYCHIATRIC: No depression or anxiety. Physical Exam - Vital signs Vitals: Temp Pulse Resp BP Pulse Ox 98.9 F 80 20 121/78 97 11/01/19 14:35 11/01/19 14:35 11/01/19 14:35 11/01/19 14:35 11/01/19 14:35 Notes: VITAL SIGNS: Within normal limits. GENERAL: No acute distress, non-toxic appearance. Resting comfortably. HEAD: Normal with no signs of head trauma. EYES: EOMI, conjunctiva normal, no discharge. EARS: Hearing grossly intact. NOSE: Normal. NECK: Normal range of motion, no tenderness, supple, no lymphadenopathy, No adenopathy, no JVD. CHEST: Clear breath sounds bilaterally. No wheezes, rales, or rhonchi. CARDIAC: Regular rate and rhythm. S1 and S2, without murmurs, gallops, or rubs. VASCULAR: No Edema. ABDOMEN: Normal and soft with no tenderness. GENITOURINARY: Normal, No tenderness LYMPATHTIC: No lymphadenopathy noted. MUSCULOSKELETAL: Good range of motion of all major joints. Extremities without clubbing, cyanosis or edema. NEUROLOGICAL: Alert and oriented x 3. No focal sensory or strength deficits. Speech normal. Follows commands appropriately. PSYCHIATRIC: Normal Affect, judgement and mood. SKIN: Normal appearance with no rashes or lesions. Course - Re-evaluation Re-evalutation: 11/01/19 18:18 Patient's heart score is 2. She states the pain she had is resolved. I do not believe this is a PE. She has no pleuritic pain or shortness of breath. I did offer patient to stay for a second troponin but she would like to go home. Patient states she will follow-up with her PCP. I did inform her that her TSH and free T3 are high. Patient is aware of this. She has been working with her family doctor on this. Patient's blood pressure has been normal throughout her ER stay. I did offer her fluids but she states that she will drink water at home. Patient states she would like to be discharged. I believe this is reasonable. I did give her strict return precautions including return of pain hypotension, or any other symptoms. Patient verbalized understanding. She will call her PCP. 11/01/19 18:44 - Vital Signs Vital signs: Temp Pulse Resp BP Pulse Ox 98.9 F 80 20 121/78 97 11/01/19 14:35 11/01/19 14:35 11/01/19 14:35 11/01/19 14:35 11/01/19 14:35 - Laboratory Result Diagrams: 11/01/19 15:20 11/01/19 15:20 Laboratory results interpreted by me: 11/01/19 11/01/19 11/01/19 15:20 15:20 15:20 MCH 34.1 H Magnesium 2.4 H TSH 5.68 H Free T3 pg/mL 2.56 L - EKG Interpretation by Me EKG shows normal: Sinus rhythm Rate: Normal Heart block present: 1st Degree When compared to previous EKG there are: No significant change Additional EKG results interpreted by me: 11/01/19 18:20 EKG interpreted by me. Sinus rhythm at a rate of 82. QTc 449. First-degree AV block. No acute ST changes. EKG is similar to previous EKG. Discharge - Discharge Clinical Impression: Elevated TSH Chest pain Qualifiers: Chest pain type: unspecified Qualified Code(s): R07.9 - Chest pain, unspecified Disposition: HOME, SELF-CARE Instructions: Chest Pain of Unclear Cause ([facility]) Additional Instructions: Make sure you are staying hydrated and drinking fluids. Please return for any recurrence of symptoms. Please follow-up with your PCP and your scouts. Referrals: ZAHIDA ALEX MD [EMERITUS] - Follow up in 3-5 days
--- NOTE | 2019-11-01 19:14 | EKG REPORT ---
SEVERITY:- ABNORMAL ECG - SINUS RHYTHM FIRST DEGREE AV BLOCK BORDERLINE INFERIOR Q WAVES : Confirmed by: Tomasz Mir 01-Nov-2019 19:13:10
[2019-11-01 19:38] VITALS: BP 107/71
== END 2019-11-01 19:38 | disposition home or self-care (01) ==
LOC: ER 14:26
DX: R07.89 Other chest pain (principal); E89.0 Postprocedural hypothyroidism; E72.12 Methylenetetrahydrofolate reductase deficiency; I95.9 Hypotension, unspecified; I44.0 Atrioventricular block, first degree; R53.83 Other fatigue; R42 Dizziness and giddiness; E11.40 Type 2 diabetes mellitus with diabetic neuropathy, unspecified; E56.9 Vitamin deficiency, unspecified; J44.9 Chronic obstructive pulmonary disease, unspecified; I25.2 Old myocardial infarction; I10 Essential (primary) hypertension; R10.9 Unspecified abdominal pain; M54.2 Cervicalgia; G89.29 Other chronic pain; Z79.899 Other long term (current) drug therapy; Z88.1 Allergy status to other antibiotic agents; Z91.048 Other nonmedicinal substance allergy status; Z88.8 Allergy status to other drugs, medicaments and biological substances; Z91.040 Latex allergy status; Z88.0 Allergy status to penicillin; Z88.2 Allergy status to sulfonamides; Z91.041 Radiographic dye allergy status
CPT/HCPCS: 36415; 71046; 80053; 83735; 84439; 84443; 84481; 84484; 85025; 93005; 93010; 99285

== ENCOUNTER → 2019-11-12 | Outpatient (CLI) | payer BC ==
--- NOTE | 2019-11-12 12:33 | RADIOLOGY REPORT (SQ) ---
EXAM DESCRIPTION: MRI THORACIC SPINE WITHOUT IMAGES COMPLETED DATE/TIME: 11/12/2019 11:20 am REASON FOR STUDY: M54.14 THORACIC RADICULOPATHY M54.14 RADICULOPATHY, THORACIC REGION COMPARISON: None. TECHNIQUE: Sagittal and Axial imaging includes T1, T2, STIR and gradient echo sequences. LIMITATIONS: None. FINDINGS: LOCALIZER: No worrisome findings. ALIGNMENT: Normal. VERTEBRAE: Intact. BONE MARROW: T6 and T8 vertebral body hemangiomas. Considered incidental findings. No worrisome les ion. No fracture. No marrow replacement process. HARDWARE: None in the spine. CORD: Normal in size and signal intensity. SOFT TISSUES: No soft tissue masses. THORACIC DISCS T1-T12: Disc height loss at T10-11 and T11-12 particularly. No large bulges or hernia s. Small left paracentral T8-9 disc protrusion without cord compression. No high-grade central sten osis. LOWER CERVICAL: Limited evaluation. Cervical spondylosis is suggested. UPPER LUMBAR: Limited evaluation. Only T12-L1 assessed, normal. OTHER: No other significant finding. IMPRESSION: 1. Thoracic spondylosis without cord compression or high-grade stenosis. TECHNICAL DOCUMENTATION: JOB ID: [id number] 2010 [employer]- All Rights Reserved Reading location - IP/workstation name: [email or web address]
== END ==
LOC: RAD 10:21
PROVIDERS: ATTEND Physician Assistant
DX: M54.14 Radiculopathy, thoracic region (principal)
CPT/HCPCS: 72146

== ENCOUNTER 2019-11-30 11:55 | Emergency (ER) | payer BC ==
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
--- NOTE | 2019-11-30 14:08 | RADIOLOGY REPORT (SQ) ---
EXAM DESCRIPTION: CERV SP 4 OR 5 VIEWS IMAGES COMPLETED DATE/TIME: 11/30/2019 1:53 pm REASON FOR STUDY: neck pain COMPARISON: 07/22/2018. NUMBER OF VIEWS: Five views. TECHNIQUE: AP, lateral, obliques and odontoid radiographic images acquired of the cervical spine. LIMITATIONS: None. FINDINGS: MINERALIZATION: Normal. ALIGNMENT: Anatomic. VERTEBRAE: Vertebral bodies of normal height. DISCS: Mild disc space narrowing with small osteophytes in the lower cervical spine. FORAMINA: No osteophytes or foraminal narrowing. LATERAL AND POSTERIOR ELEMENTS: Facets, lateral masses and spinous processes without significant find ings. HARDWARE: None in the spine. SOFT TISSUES: No masses or calcifications. Lung apices clear. OTHER: No other significant finding. IMPRESSION: MILD DEGENERATIVE DISC DISEASE. NO ACUTE RADIOGRAPHIC FINDING IN THE CERVICAL SPINE. TECHNICAL DOCUMENTATION: JOB ID: [id number] 2010 [employer]- All Rights Reserved Reading location - IP/workstation name: [email or web address]
[2019-11-30 15:44] VITALS: BP 120/76
== END 2019-11-30 15:53 | disposition home or self-care (01) ==
LOC: ER 11:55
DX: M54.6 Pain in thoracic spine (principal); M25.522 Pain in left elbow; M25.532 Pain in left wrist; W22.8XXA Striking against or struck by other objects, initial encounter; Y93.89 Activity, other specified; Y92.810 Car as the place of occurrence of the external cause; M50.30 Other cervical disc degeneration, unspecified cervical region; G89.29 Other chronic pain; Z79.891 Long term (current) use of opiate analgesic; Z79.899 Other long term (current) drug therapy; F17.200 Nicotine dependence, unspecified, uncomplicated; I10 Essential (primary) hypertension; J44.9 Chronic obstructive pulmonary disease, unspecified; E11.9 Type 2 diabetes mellitus without complications
CPT/HCPCS: 72050; 72070; 99284

== ENCOUNTER 2019-12-08 21:51 | Emergency (ER) | payer BC ==
--- NOTE | 2019-12-08 22:10 | ER Document Report ---
ED Medical Screen (RME) - General Chief Complaint: Chest Pain > 30 Stated Complaint: CHEST PAIN/HEADACHE Time Seen by Provider: 12/08/19 22:04 Primary Care Provider: ELIZABETH SMALLS MD [Primary Care Provider] - Follow up as needed Mode of Arrival: Ambulatory Information source: Patient Notes: HPI; 44-year-old female presents to the emergency room complaining of sudden ons et of right-sided chest pain that she describes as a burning sensation that radiates to her shoulder and back. She denies any trauma or injury. Denies any shortness of breath, and denies any difficulty breathing. Patient is right- handed. PE: Alert and oriented x3. Mild distress noted. Lungs: Clear to auscultation without rales, rhonchi, wheezes. Heart: Regular rate and rhythm without murmur s, rubs, gallops. I have greeted and performed a rapid initial assessment of this patient. A comprehensive ED assessment and evaluation of the patient, analysis of test results and completion of the medical decision making process will be conducted by additional ED providers. I have specifically instructed the patient or family members with the patient to immediately return to any nursing staff should anything change in the patient's condition or with their chief complaint. TRAVEL OUTSIDE OF THE [place] IN LAST 30 DAYS: No - Related Data Allergies/Adverse Reactions: Cephalosporins Allergy (Severe, Verified 11/30/19 13:07) Throat itching and swelling ciprofloxacin [From Cipro] Allergy (Severe, Verified 11/30/19 13:07) Blistering in mouth and throat ethyl alcohol Allergy (Severe, Verified 11/30/19 13:07) Shortness of Breath, cough, difficulty breathing fluticasone [From Flonase] Allergy (Severe, Verified 11/30/19 13:07) Migraine, nose bleed latex Allergy (Severe, Verified 11/30/19 13:07) RASH Penicillins Allergy (Severe, Verified 11/30/19 13:07) Throat swelling, difficulty breathing cephalexin [From Keflex] Allergy (Verified 11/30/19 13:07) Throat swelling, difficulty breathing dexlansoprazole [From Dexilant] Allergy (Verified 11/30/19 13:07) erythromycin base [From Erythrocin] Allergy (Verified 11/30/19 13:07) Hives fluoxetine [From Prozac] Allergy (Verified 11/30/19 13:07) metronidazole [From Flagyl] Allergy (Verified 11/30/19 13:07) Swelling of Throat prednisone Allergy (Verified 11/30/19 13:07) Tachycardia red dye Allergy (Verified 11/30/19 13:07) sertraline [From Zoloft] Allergy (Verified 11/30/19 13:07) sodium ferric gluconate complex [From Ferrlecit] Allergy (Verified 11/30/19 13: 07) sucrose [From Ferrlecit] Allergy (Verified 11/30/19 13:07) aspirin Adverse Reaction (Verified 11/30/19 13:07) N&V Sulfa (Sulfonamide Antibiotics) Adverse Reaction (Verified 11/30/19 13:07) See Comments IV dye Allergy (Uncoded 11/30/19 13:07) arrhythmia vitamin B1 Allergy (Uncoded 11/30/19 13:07) Past Medical History - Social History Chew tobacco use (# tins/day): No Frequency of alcohol use: None Drug Abuse: None Family history: None - Past Medical History Cardiac Medical History: Reports: Hx Heart Attack - 2009, no stent, Hx Hypercholesterolemia, Hx Hypertension - HX OF, no meds Denies: Hx Coronary Artery Disease Pulmonary Medical History: Reports: Hx Asthma, Hx COPD - INHALERS Denies: Hx Bronchitis, Hx Pneumonia Neurological Medical History: Reports: Hx Migraine, Hx Seizures - NO MEDS - LAST 2013 - NOT CURRENT. Denies: Hx Cerebrovascular Accident Endocrine Medical History: Reports: Hx Diabetes Mellitus Type 2, Hx Hyperthyroidism Renal/ Medical History: Denies: Hx Peritoneal Dialysis GI Medical History: Reports: Hx Gastroesophageal Reflux Disease Musculoskeltal Medical History: Denies Hx Arthritis Psychiatric Medical History: Reports: Hx Depression Past Surgical History: Reports: Hx Abdominal Surgery, Hx Cholecystectomy, Hx Gynecologic Surgery, Hx Hysterectomy, Hx Nose Surgery, Hx Thyroid Surgery, Hx Tubal Ligation - Immunizations Immunizations up to date: Yes Hx Diphtheria, Pertussis, Tetanus Vaccination: No Physical Exam - Vital signs Vitals: Temp Pulse Resp BP Pulse Ox 97.3 F 77 18 147/89 H 94 12/08/19 22:00 12/08/19 22:00 12/08/19 22:00 12/08/19 22:00 12/08/19 22:00 Course - Vital Signs Vital signs: Temp Pulse Resp BP Pulse Ox 97.3 F 77 18 147/89 H 94 12/08/19 22:00 12/08/19 22:00 12/08/19 22:00 12/08/19 22:00 12/08/19 22:00 Doctor's Discharge - Discharge Referrals: ELIZABETH SMALLS MD [Primary Care Provider] - Follow up as needed
--- NOTE | 2019-12-08 23:12 | RADIOLOGY REPORT (SQ) ---
EXAM DESCRIPTION: XR CHEST 1 VIEW COMPLETED DATE/TME: 12/08/2019 22:08 CLINICAL INDICATION: 44-year-old female with chest pain. TECHNIQUE: Single view, AP portable chest was obtained. COMPARISON: 11/01/2019. FINDINGS: Unremarkable cardiac and mediastinal silhouette. Heart size is normal. Lungs are clear without focal opacity, pneumothorax or pleural effusions. The visualized bones are within normal limits. IMPRESSION: No acute cardiopulmonary abnormalities.
[2019-12-09 02:05] LABS: ABSOLUTE EOSINOPHILS # (AUTO) 0.2 10^3/uL (0.0-0.6); ABSOLUTE LYMPHOCYTES (AUTO) 2.7 10^3/uL (0.5-4.7); ABSOLUTE MONOCYTES (AUTO) 0.4 10^3/uL (0.1-1.4); ABSOLUTE NEUT (AUTO) 3.3 10^3/uL (1.7-8.2); BASOPHILS % (AUTO) 0.7 % (0-2); EOSINOPHILS % (AUTO) 3.3 % (0-6); HEMATOCRIT 41.1 % (36.0-47.0); HEMOGLOBIN 14.7 g/dL (12.0-15.5); MEAN CORPUSCULAR HEMOGLOBIN 33.9 pg (27.0-33.4); MEAN CORPUSCULAR HGB CONC 35.8 g/dL (32.0-36.0); MEAN CORPUSCULAR VOLUME 95 fl (80-97); MONOCYTES % (AUTO) 6.4 % (3-13); PLATELET COUNT 172 10^3/uL (150-450); RED BLOOD COUNT 4.34 10^6/uL (3.72-5.28); RED CELL DISTRIBUTION WIDTH 12.7 % (11.5-14.0); SEGMENTED NEUTROPHILS % (AUTO) 49.6 % (42-78); TOTAL CELLS COUNTED % (AUTO) 100 %; WHITE BLOOD COUNT 6.7 10^3/uL (4.0-10.5)
[2019-12-09 02:18] LABS: ALBUMIN 3.9 g/dL (3.5-5.0); ALKALINE PHOSPHATASE 46 U/L (38-126); ANION GAP 6 (5-19); ASPARTATE AMINO TRANSFERASE 19 U/L (14-36); BILIRUBIN,DIRECT 0.3 mg/dL (0.0-0.4); BILIRUBIN,TOTAL 0.5 mg/dL (0.2-1.3); BLOOD UREA NITROGEN 9 mg/dL (7-20); CALCIUM 9.3 mg/dL (8.4-10.2); CARBON DIOXIDE 27 mmol/L (22-30); CHLORIDE 105 mmol/L (98-107); GLUCOSE 92 mg/dL (75-110); POTASSIUM 3.7 mmol/L (3.6-5.0); TOTAL PROTEIN 6.2 g/dL (6.3-8.2)
--- NOTE | 2019-12-09 02:44 | ER Document Report ---
ED Cardiac - General Chief Complaint: Chest Pain > 30 Stated Complaint: CHEST PAIN/HEADACHE Time Seen by Provider: 12/08/19 22:04 Primary Care Provider: ELIZABETH SMALLS MD [Primary Care Provider] - Follow up as needed Mode of Arrival: Ambulatory Notes: CHIEF COMPLAINT: Chest pain HPI: 44-year-old female with history of neuropathic pain chronically presenting for right-sided chest discomfort that began around 8 PM. No shortness of breath. Pain does reproduce to palpation or movement. Described as a pressure sensation that a burning sensation. Denies abdominal pain nausea vomiting. Denies fever or recent illness. States the pain is on the right side anteriorly and posteriorly ROS: See HPI - all other systems were reviewed and are otherwise negative Constitutional: no fever Eyes: no drainage, no blurred vision ENT: no runny nose, no sore throat Cardiovascular: + chest pain Resp: no SOB, no cough GI: no vomiting, no diarrhea, no abdominal pain : no dysuria Integumentary: no rash Allergy: no hives Musculoskeletal: no extremity pain or swelling Neurological: no numbness/tingling, no weakness MEDICATIONS: I agree with the patient medications as charted by the RN. ALLERGIES: I agree with the allergies as charted by the RN. PAST MEDICAL HISTORY/PAST SURGICAL HISTORY: Reviewed and agree as charted by RN. SOCIAL HISTORY: Reviewed and agree as charted by RN. FAMILY HISTORY: No significant familial comorbid conditions directly related to patient complaint EXAM: I did wake the patient from sleep for her exam Reviewed vital signs as charted by RN. CONSTITUTIONAL: Alert and oriented and responds appropriately to questions. Well-appearing; well-nourished HEAD: Normocephalic; atraumatic EYES: PERRL; Conjunctivae clear, sclerae non-icteric ENT: normal nose; no rhinorrhea; moist mucous membranes; pharynx without lesions noted, no uvula edema or deviation, no tonsillar hypertrophy, phonation normal NECK: Supple without meningismus; non-tender; no cervical lymphadenopathy, no masses CARD: RRR; no murmurs, no clicks, no rubs, no gallops; symmetric distal pulses RESP: Normal chest excursion without splinting or tachypnea; breath sounds clear and equal bilaterally; no wheezes, no rhonchi, no rales, pulse oximetry 98% on room air not hypoxic. There is mild tenderness on palpation of the anterior right chest wall as well as the posterior thoracic chest wall ABD/GI: Normal bowel sounds; non-distended; soft, non-tender, no rebound, no guarding; no palpable organomegaly or masses. BACK: The back appears normal and is non-tender to palpation, there is no CVA t enderness EXT: Normal ROM in all joints; non-tender to palpation; no cyanosis, no effusions, no edema SKIN: Normal color for age and race; warm; dry; good turgor; no acute lesions noted NEURO: Moves all extremities equally; Motor and sensory function intact PSYCH: The patient's mood and manner are appropriate. Grooming and personal hygiene are appropriate. MDM: 44-year-old female who sees cardiology already presenting for chest discomfort and burning sensation that is completely reproducible to palpation and movement that began around 8 PM tonight. EKG normal sinus rhythm with a ventricular rate of 69. ND 220. QT 408, QTc 437. There is a first-degree AV block noted but otherwise no other ectopy. Abnormal EKG. Interpreted by emergency department physician. Patient's initial screening lab work that was done shows no abnormalities. Troponin was normal. I discussed this at length with the patient. Her chest x-ray was also normal. Patient states she has had these kinds of work-ups multiple times and does not want to stay for a second troponin aware that we cannot rule out a progressive cardiac event but patient states that she would prefer to go home and call her wastewater operator for follow-up. Patient is aware that she may return at any time. We again reiterated and dis cussed that we cannot definitively rule out a cardiac problem without further work-up and evaluation which patient declines at this time stating she wishes to go home TRAVEL OUTSIDE OF THE [place] IN LAST 30 DAYS: No - Related Data Allergies/Adverse Reactions: Cephalosporins Allergy (Severe, Verified 11/30/19 13:07) Throat itching and swelling ciprofloxacin [From Cipro] Allergy (Severe, Verified 11/30/19 13:07) Blistering in mouth and throat ethyl alcohol Allergy (Severe, Verified 11/30/19 13:07) Shortness of Breath, cough, difficulty breathing fluticasone [From Flonase] Allergy (Severe, Verified 11/30/19 13:07) Migraine, nose bleed latex Allergy (Severe, Verified 11/30/19 13:07) RASH Penicillins Allergy (Severe, Verified 11/30/19 13:07) Throat swelling, difficulty breathing cephalexin [From Keflex] Allergy (Verified 11/30/19 13:07) Throat swelling, difficulty breathing dexlansoprazole [From Dexilant] Allergy (Verified 11/30/19 13:07) erythromycin base [From Erythrocin] Allergy (Verified 11/30/19 13:07) Hives fluoxetine [From Prozac] Allergy (Verified 11/30/19 13:07) metronidazole [From Flagyl] Allergy (Verified 11/30/19 13:07) Swelling of Throat prednisone Allergy (Verified 11/30/19 13:07) Tachycardia red dye Allergy (Verified 11/30/19 13:07) sertraline [From Zoloft] Allergy (Verified 11/30/19 13:07) sodium ferric gluconate complex [From Ferrlecit] Allergy (Verified 11/30/19 13:07) sucrose [From Ferrlecit] Allergy (Verified 11/30/19 13:07) aspirin Adverse Reaction (Verified 11/30/19 13:07) N&V Sulfa (Sulfonamide Antibiotics) Adverse Reaction (Verified 11/30/19 13:07) See Comments IV dye Allergy (Uncoded 11/30/19 13:07) arrhythmia vitamin B1 Allergy (Uncoded 11/30/19 13:07) Past Medical History - General Information source: Patient - Social History Smoking Status: Current Every Day Smoker Chew tobacco use (# tins/day): No Frequency of alcohol use: None Drug Abuse: None Family History: Reviewed & Not Pertinent, Malignancy Patient has homicidal ideation: No - Past Medical History Cardiac Medical History: Reports: Hx Heart Attack - 2009, no stent, Hx Hypercholesterolemia, Hx Hypertension - HX OF, no meds Denies: Hx Coronary Artery Disease Pulmonary Medical History: Reports: Hx Asthma, Hx COPD - INHALERS Denies: Hx Bronchitis, Hx Pneumonia Neurological Medical History: Reports: Hx Migraine, Hx Seizures - NO MEDS - LAST 2013 - NOT CURRENT. Denies: Hx Cerebrovascular Accident Endocrine Medical History: Reports: Hx Diabetes Mellitus Type 2, Hx Hyperthyroidism Renal/ Medical History: Denies: Hx Peritoneal Dialysis GI Medical History: Reports: Hx Gastroesophageal Reflux Disease Musculoskeletal Medical History: Denies Hx Arthritis Psychiatric Medical History: Reports: Hx Depression Past Surgical History: Reports: Hx Abdominal Surgery, Hx Cholecystectomy, Hx Gynecologic Surgery, Hx Hysterectomy, Hx Nose Surgery, Hx Thyroid Surgery, Hx Tubal Ligation - Immunizations Immunizations up to date: Yes Hx Diphtheria, Pertussis, Tetanus Vaccination: No Physical Exam - Vital signs Vitals: Temp Pulse Resp BP Pulse Ox 97.3 F 77 18 147/89 H 94 12/08/19 22:00 12/08/19 22:00 12/08/19 22:00 12/08/19 22:00 12/08/19 22:00 Course - Vital Signs Vital signs: Temp Pulse Resp BP Pulse Ox 97.3 F 77 18 147/89 H 94 12/08/19 22:00 12/08/19 22:00 12/08/19 22:00 12/08/19 22:00 12/08/19 22:00 - Laboratory Result Diagrams: 12/09/19 01:46 12/09/19 01:46 Laboratory results interpreted by me: 12/09/19 12/09/19 01:46 01:46 MCH 33.9 H Total Protein 6.2 L Discharge - Discharge Clinical Impression: Chest pain Qualifiers: Chest pain type: unspecified Qualified Code(s): R07.9 - Chest pain, unspecified Condition: Stable Disposition: HOME, SELF-CARE Additional Instructions: Follow-up with your wastewater operator for further evaluation of your chest pain. You declined to have second troponin or further evaluation tonight of this discomfort that you have. If it worsens please return for further evaluation as discussed Referrals: ELIZABETH SMALLS MD [Primary Care Provider] - Follow up as needed TRUDY GILL MD [ACTIVE STAFF] - Follow up as needed
[2019-12-09 03:36] VITALS: BP 108/70
== END 2019-12-09 02:53 | disposition home or self-care (01) ==
LOC: ER 21:51
DX: R07.9 Chest pain, unspecified (principal); R51.9 Headache, unspecified; I44.0 Atrioventricular block, first degree; Z88.8 Allergy status to other drugs, medicaments and biological substances; Z88.0 Allergy status to penicillin; Z88.2 Allergy status to sulfonamides; F17.200 Nicotine dependence, unspecified, uncomplicated; I25.2 Old myocardial infarction; J44.9 Chronic obstructive pulmonary disease, unspecified; E11.9 Type 2 diabetes mellitus without complications
CPT/HCPCS: 36415; 71045; 80053; 84484; 85025; 99284

== ENCOUNTER 2019-12-22 18:13 | Emergency (ER) | payer BC ==
--- NOTE | 2019-12-22 19:28 | ER Document Report ---
ED Medical Screen (RME) - General Chief Complaint: Arm Problem Stated Complaint: LEFT ARM NUMBNESS,LEG NUMBNESS Time Seen by Provider: 12/22/19 19:13 Primary Care Provider: ELIZABETH SMALLS MD [Primary Care Provider] - Follow up as needed Mode of Arrival: Ambulatory Information source: Patient Notes: 44-year-old female with the cervical spinal ablation coming in today with pain in her left shoulder muscle with spasticity and also having paresthesias down her left arm. She is not having any weakness but is having intermittent numbness in several of her fingers of her left hand. She told me that she did not follow her instructions from her doctor telling her not to do any intense labor but she started cleaning her house and working above her head. TRAVEL OUTSIDE OF THE [place] IN LAST 30 DAYS: No - Related Data Allergies/Adverse Reactions: Cephalosporins Allergy (Severe, Verified 11/30/19 13:07) Throat itching and swelling ciprofloxacin [From Cipro] Allergy (Severe, Verified 11/30/19 13:07) Blistering in mouth and throat ethyl alcohol Allergy (Severe, Verified 11/30/19 13:07) Shortness of Breath, cough, difficulty breathing fluticasone [From Flonase] Allergy (Severe, Verified 11/30/19 13:07) Migraine, nose bleed latex Allergy (Severe, Verified 11/30/19 13:07) RASH Penicillins Allergy (Severe, Verified 11/30/19 13:07) Throat swelling, difficulty breathing cephalexin [From Keflex] Allergy (Verified 11/30/19 13:07) Throat swelling, difficulty breathing dexlansoprazole [From Dexilant] Allergy (Verified 11/30/19 13:07) erythromycin base [From Erythrocin] Allergy (Verified 11/30/19 13:07) Hives fluoxetine [From Prozac] Allergy (Verified 11/30/19 13:07) metronidazole [From Flagyl] Allergy (Verified 11/30/19 13:07) Swelling of Throat prednisone Allergy (Verified 11/30/19 13:07) Tachycardia red dye Allergy (Verified 11/30/19 13:07) sertraline [From Zoloft] Allergy (Verified 11/30/19 13:07) sodium ferric gluconate complex [From Ferrlecit] Allergy (Verified 11/30/19 13:07) sucrose [From Ferrlecit] Allergy (Verified 11/30/19 13:07) aspirin Adverse Reaction (Verified 11/30/19 13:07) N&V Sulfa (Sulfonamide Antibiotics) Adverse Reaction (Verified 11/30/19 13:07) See Comments IV dye Allergy (Uncoded 11/30/19 13:07) arrhythmia vitamin B1 Allergy (Uncoded 11/30/19 13:07) Past Medical History - Social History Chew tobacco use (# tins/day): No Frequency of alcohol use: None Drug Abuse: None Family history: None - Past Medical History Cardiac Medical History: Reports: Hx Heart Attack - 2009, no stent, Hx Hypercholesterolemia, Hx Hypertension - HX OF, no meds Denies: Hx Coronary Artery Disease Pulmonary Medical History: Reports: Hx Asthma, Hx COPD - INHALERS Denies: Hx Bronchitis, Hx Pneumonia Neurological Medical History: Reports: Hx Migraine, Hx Seizures - NO MEDS - LAST 2013 - NOT CURRENT. Denies: Hx Cerebrovascular Accident Endocrine Medical History: Reports: Hx Diabetes Mellitus Type 2, Hx Hyperthyroidism Renal/ Medical History: Denies: Hx Peritoneal Dialysis GI Medical History: Reports: Hx Gastroesophageal Reflux Disease Musculoskeltal Medical History: Denies Hx Arthritis Psychiatric Medical History: Reports: Hx Depression Past Surgical History: Reports: Hx Abdominal Surgery, Hx Cholecystectomy, Hx Gynecologic Surgery, Hx Hysterectomy, Hx Nose Surgery, Hx Thyroid Surgery, Hx Tubal Ligation - Immunizations Immunizations up to date: Yes Hx Diphtheria, Pertussis, Tetanus Vaccination: No Physical Exam - Vital signs Vitals: Temp Pulse Resp BP Pulse Ox 98.7 F 100 16 136/80 H 99 12/22/19 18:18 12/22/19 18:18 12/22/19 18:18 12/22/19 18:18 12/22/19 18:18 Course - Vital Signs Vital signs: Temp Pulse Resp BP Pulse Ox 98.7 F 100 16 136/80 H 99 12/22/19 18:18 12/22/19 18:18 12/22/19 18:18 12/22/19 18:18 12/22/19 18:18 Doctor's Discharge - Discharge Referrals: ELIZABETH SMALLS MD [Primary Care Provider] - Follow up as needed
--- NOTE | 2019-12-23 00:08 | ER Document Report ---
ED General - General Chief Complaint: Arm Problem Stated Complaint: LEFT ARM NUMBNESS,LEG NUMBNESS Time Seen by Provider: 12/22/19 19:13 Primary Care Provider: ELIZABETH SMALLS MD [Primary Care Provider] - Follow up as needed Mode of Arrival: Ambulatory TRAVEL OUTSIDE OF THE [place] IN LAST 30 DAYS: No - HPI Notes: 44-year-old female presents with pain to her left shoulder along with numbness to her left arm and now resolved left leg numbness. Patient had a radiofrequency ablation done to 4 cervical nerves on the left side yesterday. She states that she did not follow the postprocedure instructions. Today she has been sweeping the floors, reaching for a plate above her head, and reaching with her left arm into her nightstand. Since she reached over her head to grab a plate, she has been having pain to the left shoulder, described as spasticity. She states that she has had some left arm numbness and tingling, burning sensation, states that when she makes a fist she can feel swelling increase in her left shoulder. She states that overall the alteration in sensation of her left arm has mostly improved, mostly complains of the soreness to her left shoulder. Additionally at one point today was not able to turn her head to the left, however this is now resolved. Patient states that she has a 5 mg Norcos which she was instructed to take on a scheduled basis, however due to her blood pressure being 96/65 she did not take the [place] because she was afraid it would drop her blood pressure. Patient gives a long and detailed history of longst anding blood pressure fluctuations, states her normal blood pressure is 100-114. She has not tried any other medications yet. She states that she is supposed to start Lyrica, however she has been told not to start until she can have 2 to 3 days where she is not driving. She is not on any muscle relaxer. - Related Data Allergies/Adverse Reactions: Cephalosporins Allergy (Severe, Verified 11/30/19 13:07) Throat itching and swelling ciprofloxacin [From Cipro] Allergy (Severe, Verified 11/30/19 13:07) Blistering in mouth and throat ethyl alcohol Allergy (Severe, Verified 11/30/19 13:07) Shortness of Breath, cough, difficulty breathing fluticasone [From Flonase] Allergy (Severe, Verified 11/30/19 13:07) Migraine, nose bleed latex Allergy (Severe, Verified 11/30/19 13:07) RASH Penicillins Allergy (Severe, Verified 11/30/19 13:07) Throat swelling, difficulty breathing cephalexin [From Keflex] Allergy (Verified 11/30/19 13:07) Throat swelling, difficulty breathing dexlansoprazole [From Dexilant] Allergy (Verified 11/30/19 13:07) erythromycin base [From Erythrocin] Allergy (Verified 11/30/19 13:07) Hives fluoxetine [From Prozac] Allergy (Verified 11/30/19 13:07) metronidazole [From Flagyl] Allergy (Verified 11/30/19 13:07) Swelling of Throat prednisone Allergy (Verified 11/30/19 13:07) Tachycardia red dye Allergy (Verified 11/30/19 13:07) sertraline [From Zoloft] Allergy (Verified 11/30/19 13:07) sodium ferric gluconate complex [From Ferrlecit] Allergy (Verified 11/30/19 13:07) sucrose [From Ferrlecit] Allergy (Verified 11/30/19 13:07) aspirin Adverse Reaction (Verified 11/30/19 13:07) N&V Sulfa (Sulfonamide Antibiotics) Adverse Reaction (Verified 11/30/19 13:07) See Comments IV dye Allergy (Uncoded 11/30/19 13:07) arrhythmia vitamin B1 Allergy (Uncoded 11/30/19 13:07) Past Medical History - General Information source: Patient - Social History Smoking Status: Current Every Day Smoker Chew tobacco use (# tins/day): No Frequency of alcohol use: None Drug Abuse: None Family History: Reviewed & Not Pertinent, Malignancy - Past Medical History Cardiac Medical History: Reports: Hx Heart Attack - 2009, no stent, Hx Hypercholesterolemia, Hx Hypertension - HX OF, no meds Denies: Hx Coronary Artery Disease Pulmonary Medical History: Reports: Hx Asthma, Hx COPD - INHALERS Denies: Hx Bronchitis, Hx Pneumonia Neurological Medical History: Reports: Hx Migraine, Hx Seizures - NO MEDS - LAST 2013 - NOT CURRENT. Denies: Hx Cerebrovascular Accident Endocrine Medical History: Reports: Hx Diabetes Mellitus Type 2, Hx Hyperthyroidism Renal/ Medical History: Denies: Hx Peritoneal Dialysis GI Medical History: Reports: Hx Gastroesophageal Reflux Disease Musculoskeletal Medical History: Denies Hx Arthritis Psychiatric Medical History: Reports: Hx Depression Past Surgical History: Reports: Hx Abdominal Surgery, Hx Cholecystectomy, Hx Gynecologic Surgery, Hx Hysterectomy, Hx Nose Surgery, Hx Thyroid Surgery, Hx Tubal Ligation - Immunizations Immunizations up to date: Yes Hx Diphtheria, Pertussis, Tetanus Vaccination: No Review of Systems - Review of Systems Constitutional: No symptoms reported EENT: No symptoms reported Cardiovascular: No symptoms reported Respiratory: No symptoms reported Gastrointestinal: No symptoms reported Genitourinary: No symptoms reported Female Genitourinary: No symptoms reported Musculoskeletal: See HPI Skin: No symptoms reported Hematologic/Lymphatic: No symptoms reported Neurological/Psychological: See HPI Physical Exam - Vital signs Vitals: Temp Pulse Resp BP Pulse Ox 98.7 F 100 16 136/80 H 99 12/22/19 18:18 12/22/19 18:18 12/22/19 18:18 12/22/19 18:18 12/22/19 18:18 - General General appearance: Appears well, Alert In distress: None - HEENT Head: Normocephalic, Atraumatic Extraocular movements intact: Yes Pupils: PERRL Notes: For pinpoint scabs to left lateral neck. Patient has preserved range of motion of neck, no midline tenderness. Tenderness to left trapezius area - Respiratory Respiratory status: No respiratory distress - Cardiovascular Rhythm: Regular Pulses: Normal: Radial Normal capillary refill: Yes - Abdominal Inspection: No: Obese - Extremities General upper extremity: Normal color, Normal ROM General lower extremity: Normal ROM - Neurological Neuro grossly intact: Yes Cognition: Normal Orientation: AAOx4 Notes: Strength is 5/5 in right upper extremity, 5/5 in left upper extremity, sensation is intact to both upper extremities - Psychological Associated symptoms: Normal affect - Skin Skin Temperature: Warm Course - Re-evaluation Re-evalutation: 44-year-old female with pain following radiofrequency ablation to for cervical nerves, additionally with arm numbness/tingling sensation. On exam patient is well-appearing, she has preserved motion and sensation to her left arm, no neuro deficits. She does have some tenderness over the left trapezius area. Patient spends a good amount of time discussing taking [place] although her blood pressure was low once at home, I offered reassurance on this topic. Patient does have tenderness and palpable muscle spasms, I offered her several medications. Patient denied lidocaine patch citing she has a skin allergy. Patient denied Flexeril saying that it does not work. Patient denied Robaxin stating that she was previously prescribed this but had "red flags" due to her other allergies. Patient denied Toradol or ibuprofen citing GI issues and additional allergy to aspirin. Patient denied topical anti-inflammatory as well. She did not want to take a dose of [place] here, stating that she will take it when she gets home. I also advised the use of ice. I discussed with patient importance to follow the post procedure instructions that she received. Return precautions given, patient stable at time of discharge. - Vital Signs Vital signs: Temp Pulse Resp BP Pulse Ox 98.7 F 100 16 136/80 H 99 12/22/19 18:18 12/22/19 18:18 12/22/19 18:18 12/22/19 18:18 12/22/19 18:18 Discharge - Discharge Clinical Impression: Muscle spasm Disposition: HOME, SELF-CARE Additional Instructions: Please touch base with the physician group that performed the ablation. Continue all recommended post procedure instructions. Return to the emergency department for any concerning worsening symptoms. Referrals: ELIZABETH SMALLS MD [Primary Care Provider] - Follow up as needed
[2019-12-23 01:22] VITALS: BP 119/73
== END 2019-12-23 01:25 | disposition home or self-care (01) ==
LOC: ER 18:13
DX: M62.838 Other muscle spasm (principal); R20.0 Anesthesia of skin; F17.200 Nicotine dependence, unspecified, uncomplicated; E78.00 Pure hypercholesterolemia, unspecified; I10 Essential (primary) hypertension; E11.9 Type 2 diabetes mellitus without complications; Z98.890 Other specified postprocedural states; Z88.3 Allergy status to other anti-infective agents; I25.2 Old myocardial infarction
CPT/HCPCS: 99282

== ENCOUNTER 2020-01-18 21:52 | Emergency (ER) | payer BC ==
--- NOTE | 2020-01-18 22:24 | ER Document Report ---
ED Medical Screen (RME) - General Chief Complaint: Blood Pressure Problem Stated Complaint: HIGH BLOOD PRESSURE, HEADACHE, UNBALANCED Time Seen by Provider: 01/18/20 22:12 Primary Care Provider: ELIZABETH SMALLS MD [Primary Care Provider] - Follow up as needed TRAVEL OUTSIDE OF THE [place] IN LAST 30 DAYS: No - HPI Notes: 01/18/20 22:22 44-year-old female to the emergency department with complaints of acute onset of labile blood pressure, chest pressure that radiates from her chest up into her right neck and into her head and back down into the chest that began this evening. She has a pertinent past medical history for a heart attack at age 34. 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 She sees Dr. Downs because she has had some difficulty with palpitations in the past. She called Dr. Downs, cardiology, ramandeep and he asked her to come to the emergency department for cardiac work-up given her past medical history. She also reports dizziness and feels like she is swaying like she is on a boat or pendulum. She denies any headache, nausea, diaphoresis. This does not feel like the same as when she had her heart attack at age 34. On brief medical screening exam, patient has clear lungs to auscultation and no murmurs rubs or gallop. I performed a brief medical screening exam on the patient determined that the patient needs further evaluation and management by main side provider. I have placed initial orders to help expedite care. - Related Data Allergies/Adverse Reactions: Cephalosporins Allergy (Severe, Verified 11/30/19 13:07) Throat itching and swelling ciprofloxacin [From Cipro] Allergy (Severe, Verified 11/30/19 13:07) Blistering in mouth and throat ethyl alcohol Allergy (Severe, Verified 11/30/19 13:07) Shortness of Breath, cough, difficulty breathing fluticasone [From Flonase] Allergy (Severe, Verified 11/30/19 13:07) Migraine, nose bleed latex Allergy (Severe, Verified 11/30/19 13:07) RASH Penicillins Allergy (Severe, Verified 11/30/19 13:07) Throat swelling, difficulty breathing cephalexin [From Keflex] Allergy (Verified 11/30/19 13:07) Throat swelling, difficulty breathing dexlansoprazole [From Dexilant] Allergy (Verified 11/30/19 13:07) erythromycin base [From Erythrocin] Allergy (Verified 11/30/19 13:07) Hives fluoxetine [From Prozac] Allergy (Verified 11/30/19 13:07) metronidazole [From Flagyl] Allergy (Verified 11/30/19 13:07) Swelling of Throat prednisone Allergy (Verified 11/30/19 13:07) Tachycardia red dye Allergy (Verified 11/30/19 13:07) sertraline [From Zoloft] Allergy (Verified 11/30/19 13:07) sodium ferric gluconate complex [From Ferrlecit] Allergy (Verified 11/30/19 13:07) sucrose [From Ferrlecit] Allergy (Verified 11/30/19 13:07) aspirin Adverse Reaction (Verified 11/30/19 13:07) N&V Sulfa (Sulfonamide Antibiotics) Adverse Reaction (Verified 11/30/19 13:07) See Comments IV dye Allergy (Uncoded 11/30/19 13:07) arrhythmia vitamin B1 Allergy (Uncoded 11/30/19 13:07) Home Medications: levothroxyzine. colace. percocet. omeprazole. lyrica. b1 liquid. vit D Past Medical History - Social History Chew tobacco use (# tins/day): No Frequency of alcohol use: None Drug Abuse: None Family history: None - Past Medical History Cardiac Medical History: Reports: Hx Heart Attack - 2009, no stent, Hx Hypercholesterolemia, Hx Hypertension - HX OF, no meds Denies: Hx Coronary Artery Disease Pulmonary Medical History: Reports: Hx Asthma, Hx COPD - INHALERS Denies: Hx Bronchitis, Hx Pneumonia Neurological Medical History: Reports: Hx Migraine, Hx Seizures - NO MEDS - LAST 2013 - NOT CURRENT. Denies: Hx Cerebrovascular Accident Endocrine Medical History: Reports: Hx Diabetes Mellitus Type 2, Hx Hyperthyroidism Renal/ Medical History: Denies: Hx Peritoneal Dialysis GI Medical History: Reports: Hx Gastroesophageal Reflux Disease Musculoskeltal Medical History: Denies Hx Arthritis Psychiatric Medical History: Reports: Hx Depression Past Surgical History: Reports: Hx Abdominal Surgery, Hx Cholecystectomy, Hx Gynecologic Surgery, Hx Hysterectomy, Hx Nose Surgery, Hx Thyroid Surgery, Hx Tubal Ligation - Immunizations Immunizations up to date: Yes Hx Diphtheria, Pertussis, Tetanus Vaccination: No Physical Exam - Vital signs Vitals: Temp Pulse Resp BP Pulse Ox 98.2 F 85 16 129/79 H 98 01/18/20 22:00 01/18/20 22:00 01/18/20 22:00 01/18/20 22:00 01/18/20 22:00 Course - Vital Signs Vital signs: Temp Pulse Resp BP Pulse Ox 98.2 F 85 16 129/79 H 98 01/18/20 22:00 01/18/20 22:00 01/18/20 22:00 01/18/20 22:00 01/18/20 22:00 Doctor's Discharge - Discharge Referrals: ELIZABETH SMALLS MD [Primary Care Provider] - Follow up as needed
[2020-01-18 22:40] LABS: ABSOLUTE BASOPHILS # (AUTO) 0.1 10^3/uL (0.0-0.2); ABSOLUTE EOSINOPHILS # (AUTO) 0.3 10^3/uL (0.0-0.6); ABSOLUTE LYMPHOCYTES (AUTO) 2.7 10^3/uL (0.5-4.7); ABSOLUTE MONOCYTES (AUTO) 0.6 10^3/uL (0.1-1.4); ABSOLUTE NEUT (AUTO) 4.1 10^3/uL (1.7-8.2); BASOPHILS % (AUTO) 1.1 % (0-2); EOSINOPHILS % (AUTO) 3.8 % (0-6); HEMATOCRIT 41.9 % (36.0-47.0); HEMOGLOBIN 14.7 g/dL (12.0-15.5); MEAN CORPUSCULAR HEMOGLOBIN 33.5 pg (27.0-33.4); MEAN CORPUSCULAR HGB CONC 35.2 g/dL (32.0-36.0); MEAN CORPUSCULAR VOLUME 95 fl (80-97); MONOCYTES % (AUTO) 7.2 % (3-13); PLATELET COUNT 179 10^3/uL (150-450); RED BLOOD COUNT 4.41 10^6/uL (3.72-5.28); RED CELL DISTRIBUTION WIDTH 12.2 % (11.5-14.0); SEGMENTED NEUTROPHILS % (AUTO) 52.9 % (42-78); TOTAL CELLS COUNTED % (AUTO) 100 %; WHITE BLOOD COUNT 7.7 10^3/uL (4.0-10.5)
[2020-01-18 22:58] LABS: ALBUMIN 4.5 g/dL (3.5-5.0); ALKALINE PHOSPHATASE 57 U/L (38-126); ANION GAP 5 (5-19); ASPARTATE AMINO TRANSFERASE 19 U/L (14-36); BILIRUBIN,DIRECT 0.1 mg/dL (0.0-0.4); BILIRUBIN,TOTAL 0.3 mg/dL (0.2-1.3); BLOOD UREA NITROGEN 13 mg/dL (7-20); CALCIUM 10.1 mg/dL (8.4-10.2); CARBON DIOXIDE 28 mmol/L (22-30); CHLORIDE 104 mmol/L (98-107); GLUCOSE 97 mg/dL (75-110); POTASSIUM 3.9 mmol/L (3.6-5.0); TOTAL PROTEIN 7.3 g/dL (6.3-8.2)
--- NOTE | 2020-01-18 23:31 | RADIOLOGY REPORT (SQ) ---
EXAM DESCRIPTION: XR CHEST 2 VIEWS COMPLETED DATE/TME: 01/18/2020 22:49 CLINICAL INDICATION: 12/08/2019 TECHNIQUE: Two-view, PA and lateral projections of the chest were obtained. COMPARISON: None. FINDINGS: Unremarkable cardiac and mediastinal silhouette. Heart size is normal. Lungs are clear without focal opacity, pneumothorax or pleural effusions. The visualized bones are within normal limits. IMPRESSION: No acute cardiopulmonary abnormalities.
[2020-01-19 00:55] LABS: FREE T3 2.56 pg/mL (2.77-5.27); FREE T4 (FREE THYROXINE) 1.37 ng/dL (0.78-2.19)
--- NOTE | 2020-01-19 01:07 | ER Document Report ---
ED Cardiac - General Chief Complaint: Blood Pressure Problem Stated Complaint: HIGH BLOOD PRESSURE, HEADACHE, UNBALANCED Time Seen by Provider: 01/19/20 00:15 Primary Care Provider: TRUDY GILL MD [ACTIVE STAFF] - Follow up as needed ELIZABETH SMALLS MD [Primary Care Provider] - Follow up as needed Mode of Arrival: Ambulatory Information source: Patient Notes: Patient presents complaining of right upper chest pain that radiates to her right shoulder and dizziness that she describes as feeling off balance that started around 830 this evening. Patient denies any cough or cold symptoms. Patient denies any headache or nausea. Patient denies any episodes of ej phoresis. Patient states that her blood pressure was 147/97 which is elevated for her. Patient states she has a history of NH in the past and when she contacted her agricultural real estate agent he advised her to come here to get checked out. Patient also acknowledges that she has a history of thoracic back pain that her doctor told her could cause her to have pain radiating around to the chest area. TRAVEL OUTSIDE OF THE [place] IN LAST 30 DAYS: No - HPI Patient complains to provider of: Chest pain Chest pain location: Other - Right upper anterior chest Quality of pain: Pressure Chest pain radiation location: Right shoulder Pain level currently: 2 Chest pain precipitating factors: At Rest Cardiac risk factors: Smoker. denies: Hypertension Associated symptoms: Back pain, Dizziness. denies: Abdominal pain, Diaphoresis, Neck pain, Shortness of breath Exacerbated by: Denies Relieved by: Nothing Similar symptoms previously: Yes Recently seen / treated by doctor: No - Related Data Allergies/Adverse Reactions: Cephalosporins Allergy (Severe, Verified 11/30/19 13:07) Throat itching and swelling ciprofloxacin [From Cipro] Allergy (Severe, Verified 11/30/19 13:07) Blistering in mouth and throat ethyl alcohol Allergy (Severe, Verified 11/30/19 13:07) Shortness of Breath, cough, difficulty breathing fluticasone [From Flonase] Allergy (Severe, Verified 11/30/19 13:07) Migraine, nose bleed latex Allergy (Severe, Verified 11/30/19 13:07) RASH Penicillins Allergy (Severe, Verified 11/30/19 13:07) Throat swelling, difficulty breathing cephalexin [From Keflex] Allergy (Verified 11/30/19 13:07) Throat swelling, difficulty breathing dexlansoprazole [From Dexilant] Allergy (Verified 11/30/19 13:07) erythromycin base [From Erythrocin] Allergy (Verified 11/30/19 13:07) Hives fluoxetine [From Prozac] Allergy (Verified 11/30/19 13:07) metronidazole [From Flagyl] Allergy (Verified 11/30/19 13:07) Swelling of Throat prednisone Allergy (Verified 11/30/19 13:07) Tachycardia red dye Allergy (Verified 11/30/19 13:07) sertraline [From Zoloft] Allergy (Verified 11/30/19 13:07) sodium ferric gluconate complex [From Ferrlecit] Allergy (Verified 11/30/19 13:07) sucrose [From Ferrlecit] Allergy (Verified 11/30/19 13:07) aspirin Adverse Reaction (Verified 11/30/19 13:07) N&V Sulfa (Sulfonamide Antibiotics) Adverse Reaction (Verified 11/30/19 13:07) See Comments IV dye Allergy (Uncoded 11/30/19 13:07) arrhythmia vitamin B1 Allergy (Uncoded 11/30/19 13:07) Home Medications: levothroxyzine. colace. percocet. omeprazole. lyrica. b1 liquid. vit D Past Medical History - General Information source: Patient - Social History Smoking Status: Never Smoker Chew tobacco use (# tins/day): No Frequency of alcohol use: None Drug Abuse: None Lives with: Spouse/Significant other Family History: Reviewed & Not Pertinent, Malignancy - Past Medical History Cardiac Medical History: Reports: Hx Heart Attack - 2009, no stent, Hx Hypercholesterolemia, Hx Hypertension - HX OF, no meds Denies: Hx Coronary Artery Disease Pulmonary Medical History: Reports: Hx Asthma, Hx COPD - INHALERS Denies: Hx Bronchitis, Hx Pneumonia Neurological Medical History: Reports: Hx Migraine, Hx Seizures - NO MEDS - LAST 2013 - NOT CURRENT. Denies: Hx Cerebrovascular Accident Endocrine Medical History: Reports: Hx Diabetes Mellitus Type 2, Hx Hyperth yroidism Renal/ Medical History: Denies: Hx Peritoneal Dialysis GI Medical History: Reports: Hx Gastroesophageal Reflux Disease Musculoskeletal Medical History: Denies Hx Arthritis Psychiatric Medical History: Reports: Hx Depression Past Surgical History: Reports: Hx Abdominal Surgery, Hx Cholecystectomy, Hx Gynecologic Surgery, Hx Hysterectomy, Hx Nose Surgery, Hx Orthopedic Surgery - Spinal Ablation, Hx Thyroid Surgery, Hx Tubal Ligation - Immunizations Immunizations up to date: Yes Hx Diphtheria, Pertussis, Tetanus Vaccination: No Review of Systems - Review of Systems Constitutional: No symptoms reported. denies: Diaphoresis, Fever, Recent illness EENT: No symptoms reported Cardiovascular: Chest pain, Dizziness. denies: Syncope, Lightheaded Respiratory: No symptoms reported. denies: Cough, Short of breath Gastrointestinal: No symptoms reported. denies: Abdominal pain, Vomiting Genitourinary: No symptoms reported Female Genitourinary: No symptoms reported Musculoskeletal: Back pain Skin: No symptoms reported Hematologic/Lymphatic: No symptoms reported Neurological/Psychological: No symptoms reported Physical Exam - Vital signs Vitals: Temp Pulse Resp BP Pulse Ox 98.2 F 85 16 129/79 H 98 01/18/20 22:00 01/18/20 22:00 01/18/20 22:00 01/18/20 22:00 01/18/20 22:00 - Notes Notes: PHYSICAL EXAMINATION: GENERAL: Well-appearing and in no acute distress. HEAD: Atraumatic, normocephalic. EYES: sclera anicteric, conjunctiva are normal. ENT: nares patent. Moist mucous membranes. NECK: Normal range of motion, supple without lymphadenopathy LUNGS: CTAB and equal. No wheezes rales or rhonchi. Right anterior chest wall tender with palpation HEART: Regular rate and rhythm without murmurs ABDOMEN: Soft, nontender, normal bowel sounds, no guarding. EXTREMITIES: Normal range of motion, no pitting edema. No cyanosis. BACK: Thoracic paraspinal tenderness NEUROLOGICAL: Cranial nerves grossly intact. Normal speech. PSYCH: Normal mood, normal affect. SKIN: Warm, Dry, normal turgor, no rashes or lesions noted Course - Re-evaluation Re-evalutation: 01/19/20 03:06 Patient denies any symptoms at this time. Patient reports chest discomfort with some improved. Patient with stable vital signs and no tachycardia or hypoxia. Patient does have elevated TSH and was advised of this finding. Patient plans to follow-up with her physics technician for further management. Presentation of chest pain in an otherwise well appearing patient. Low clinical suspicion for ACS given clinical history, exam, EKG without ST elevations or depressions, and negative initial troponin. HEART score less than or equal to 3. PE also seems unlikely given clinical history, absence of tachycardia or dyspnea. Patient is PERC criteria negative. CXR without evidence of pneumothorax or pneumonia. No widened mediastinum. Chest pain in a patient without evidence of cardiac or other serious etiology on workup today. I discussed with patient that, based on their age, risk factors and emergency department testing today, the likelihood that their symptoms are related to a heart attack is very low. The patient demonstrates decision making capacity and has verbalized an understanding of these risks to me. Based on this, the patient has chosen to follow-up as an outpatient. Usual chest pain return precautions reviewed. The patient states understanding and agreement with this plan. - Vital Signs Vital signs: Temp Pulse Resp BP Pulse Ox 98.2 F 85 18 107/71 94 01/18/20 22:00 01/18/20 22:00 01/19/20 03:01 01/19/20 03:01 01/19/20 03:01 - Laboratory Result Diagrams: 01/18/20 22:30 01/18/20 22:30 Laboratory results interpreted by me: 01/18/20 01/18/20 01/18/20 22:30 22:30 22:30 MCH 33.5 H Sodium 136.9 L TSH 8.48 H Free T3 pg/mL 01/18/20 22:30 MCH Sodium TSH Free T3 pg/mL 2.56 L 01/19/20 03:05 Labs- All tests 24 hr 01/18/20 01/18/20 01/18/20 22:30 22:30 22:30 WBC 7.7 RBC 4.41 Hgb 14.7 Hct 41.9 MCV 95 MCH 33.5 H MCHC 35.2 RDW 12.2 Plt Count 179 Lymph % (Auto) 35.0 Wilcox % (Auto) 7.2 Eos % (Auto) 3.8 Baso % (Auto) 1.1 Absolute Neuts (auto) 4.1 Absolute Lymphs (auto) 2.7 Absolute Monos (auto) 0.6 Absolute Eos (auto) 0.3 Absolute Basos (auto) 0.1 Seg Neutrophils % 52.9 Sodium 136.9 L Potassium 3.9 Chloride 104 Carbon Dioxide 28 Anion Gap 5 BUN 13 Creatinine 0.70 Est GFR ( Amer) > 60 Est GFR (MDRD) Non-Af > 60 Glucose 97 Calcium 10.1 Magnesium 2.3 Total Bilirubin 0.3 Direct Bilirubin 0.1 Neonat Total Bilirubin Not Reportable Neonat Direct Bilirubin Not Reportable Neonat Indirect Bili Not Reportable AST 19 ALT 11 Alkaline Phosphatase 57 Troponin I < 0.012 Total Protein 7.3 Albumin 4.5 TSH Free T4 Free T3 pg/mL 01/18/20 01/18/20 01/19/20 22:30 22:30 01:22 WBC RBC Hgb Hct MCV MCH MCHC RDW Plt Count Lymph % (Auto) Wilcox % (Auto) Eos % (Auto) Baso % (Auto) Absolute Neuts (auto) Absolute Lymphs (auto) Absolute Monos (auto) Absolute Eos (auto) Absolute Basos (auto) Seg Neutrophils % Sodium Potassium Chloride Carbon Dioxide Anion Gap BUN Creatinine Est GFR ( Amer) Est GFR (MDRD) Non-Af Glucose Calcium Magnesium Total Bilirubin Direct Bilirubin Neonat Total Bilirubin Neonat Direct Bilirubin Neonat Indirect Bili AST ALT Alkaline Phosphatase Troponin I < 0.012 Total Protein Albumin TSH 8.48 H Free T4 1.37 Free T3 pg/mL 2.56 L - Diagnostic Test Radiology reviewed: Reports reviewed - EKG Interpretation by Me EKG shows normal: Sinus rhythm Rate: Normal Heart block present: 1st Degree Additional EKG results interpreted by me: 01/19/20 02:59 Sinus rhythm with a rate of 73, QTC 432, no acute ischemic changes Discharge - Discharge Clinical Impression: Elevated TSH, Dizziness Chest pain Qualifiers: Chest pain type: unspecified Qualified Code(s): R07.9 - Chest pain, unspecified Condition: Stable Disposition: HOME, SELF-CARE Instructions: Chest Pain of Unclear Cause ([facility]) Additional Instructions: Return immediately for any new or worsening symptoms: Chest pain, difficulty breathing, shortness of breath or any concerning new symptoms Followup with your primary care provider, call tomorrow to make a followup appointment Follow-up with your physics technician for further management Follow-up with your agricultural real estate agent for recheck, call tomorrow for an appointment Referrals: ELIZABETH SMALLS MD [Primary Care Provider] - Follow up as needed TRUDY GILL MD [ACTIVE STAFF] - Follow up as needed
[2020-01-19 03:24] VITALS: BP 107/71
--- NOTE | 2020-01-19 09:02 | EKG REPORT ---
SEVERITY:- ABNORMAL ECG - SINUS RHYTHM FIRST DEGREE AV BLOCK : Confirmed by: Bernardo Moise MD 19-Jan-2020 09:01:40
== END 2020-01-19 03:24 | disposition home or self-care (01) ==
LOC: ER 21:52
DX: R07.9 Chest pain, unspecified (principal); R94.6 Abnormal results of thyroid function studies; I10 Essential (primary) hypertension; R51.9 Headache, unspecified; M25.511 Pain in right shoulder; R42 Dizziness and giddiness; M54.6 Pain in thoracic spine; I25.2 Old myocardial infarction; E11.9 Type 2 diabetes mellitus without complications; Z88.8 Allergy status to other drugs, medicaments and biological substances; Z88.1 Allergy status to other antibiotic agents; Z88.2 Allergy status to sulfonamides; Z79.899 Other long term (current) drug therapy; J44.9 Chronic obstructive pulmonary disease, unspecified
CPT/HCPCS: 36415; 71046; 80053; 83735; 84439; 84443; 84481; 84484; 85025; 93005; 93010; 99285

== ENCOUNTER 2020-01-21 20:32 | Emergency (ER) | payer BC ==
--- NOTE | 2020-01-21 21:25 | ER Document Report ---
ED Medical Screen (RME) - General Stated Complaint: SORE THROAT/DIFFICULTY IN SWALLOWING Time Seen by Provider: 01/21/20 21:11 Primary Care Provider: ELIZABETH SMALLS MD [Primary Care Provider] - Follow up as needed Mode of Arrival: Ambulatory Information source: Patient Notes: HPI; 44-year-old female presents to the emergency room complaining of worsening neck pain, difficulty swallowing and swelling to the left side of her neck tonight. Patient was seen here 3 days ago for chest pain and states that she did mention to the provider that she was having swelling in her neck. States they checked a TSH and her numbers were elevated. States she is on thyroxine and has been taking it as directed. States the swelling was worse tonight. States she choked when trying to drink water. She denies any fevers. No ill contacts. Also states she has a history of tonsil stones but denies sore throat. No COVID-19 exposure. PE: Alert and oriented x3. Lungs: Clear to auscultation without rales, rhonchi, wheezes. Heart: Regular rate rhythm without murmurs, rubs, gallops. No pharyngeal erythema or obvious peritonsillar abscess is noted. There is some swelling noted to the left anterior neck. It is tender to palpation. There is no palpable lymphadenopathy noted. Patient is speaking in full sentences. She is handling her own secretions. I have greeted and performed a rapid initial assessment of this patient. A comprehensive ED assessment and evaluation of the patient, analysis of test results and completion of the medical decision making process will be conducted by additional ED providers. I have specifically instructed the patient or family members with the patient to immediately return to any nursing staff should anything change in the patient's condition or with their chief complaint. TRAVEL OUTSIDE OF THE [place] IN LAST 30 DAYS: No - Related Data Allergies/Adverse Reactions: Cephalosporins Allergy (Severe, Verified 11/30/19 13:07) Throat itching and swelling ciprofloxacin [From Cipro] Allergy (Severe, Verified 11/30/19 13:07) Blistering in mouth and throat ethyl alcohol Allergy (Severe, Verified 11/30/19 13:07) Shortness of Breath, cough, difficulty breathing fluticasone [From Flonase] Allergy (Severe, Verified 11/30/19 13:07) Migraine, nose bleed latex Allergy (Severe, Verified 11/30/19 13:07) RASH Penicillins Allergy (Severe, Verified 11/30/19 13:07) Throat swelling, difficulty breathing cephalexin [From Keflex] Allergy (Verified 11/30/19 13:07) Throat swelling, difficulty breathing dexlansoprazole [From Dexilant] Allergy (Verified 11/30/19 13:07) erythromycin base [From Erythrocin] Allergy (Verified 11/30/19 13:07) Hives fluoxetine [From Prozac] Allergy (Verified 11/30/19 13:07) metronidazole [From Flagyl] Allergy (Verified 11/30/19 13:07) Swelling of Throat prednisone Allergy (Verified 11/30/19 13:07) Tachycardia red dye Allergy (Verified 11/30/19 13:07) sertraline [From Zoloft] Allergy (Verified 11/30/19 13:07) sodium ferric gluconate complex [From Ferrlecit] Allergy (Verified 11/30/19 13:07) sucrose [From Ferrlecit] Allergy (Verified 11/30/19 13:07) aspirin Adverse Reaction (Verified 11/30/19 13:07) N&V Sulfa (Sulfonamide Antibiotics) Adverse Reaction (Verified 11/30/19 13:07) See Comments IV dye Allergy (Uncoded 11/30/19 13:07) arrhythmia vitamin B1 Allergy (Uncoded 11/30/19 13:07) Past Medical History - Social History Family history: None - Past Medical History Cardiac Medical History: Reports: Hx Heart Attack - 2009, no stent, Hx Hypercholesterolemia, Hx Hypertension - HX OF, no meds Denies: Hx Coronary Artery Disease Pulmonary Medical History: Reports: Hx Asthma, Hx COPD - INHALERS Denies: Hx Bronchitis, Hx Pneumonia Neurological Medical History: Reports: Hx Migraine, Hx Seizures - NO MEDS - LAST 2013 - NOT CURRENT. Denies: Hx Cerebrovascular Accident Endocrine Medical History: Reports: Hx Diabetes Mellitus Type 2, Hx Hyperthyroidism Renal/ Medical History: Denies: Hx Peritoneal Dialysis GI Medical History: Reports: Hx Gastroesophageal Reflux Disease Musculoskeltal Medical History: Denies Hx Arthritis Psychiatric Medical History: Reports: Hx Depression Past Surgical History: Reports: Hx Abdominal Surgery, Hx Cholecystectomy, Hx Gynecologic Surgery, Hx Hysterectomy, Hx Nose Surgery, Hx Orthopedic Surgery - Spinal Ablation, Hx Thyroid Surgery, Hx Tubal Ligation - Immunizations Immunizations up to date: Yes Hx Diphtheria, Pertussis, Tetanus Vaccination: No Physical Exam - Vital signs Vitals: Temp Pulse Resp BP Pulse Ox 98.1 F 79 17 149/102 H 96 01/21/20 20:41 01/21/20 20:41 01/21/20 20:41 01/21/20 20:41 01/21/20 20:41 Course - Vital Signs Vital signs: Temp Pulse Resp BP Pulse Ox 98.1 F 79 17 149/102 H 96 01/21/20 20:41 01/21/20 20:41 01/21/20 20:41 01/21/20 20:41 01/21/20 20:41 Doctor's Discharge - Discharge Referrals: ELIZABETH SMALLS MD [Primary Care Provider] - Follow up as needed
[2020-01-21 21:46] LABS: ABSOLUTE BASOPHILS # (AUTO) 0.1 10^3/uL (0.0-0.2); ABSOLUTE EOSINOPHILS # (AUTO) 0.3 10^3/uL (0.0-0.6); ABSOLUTE MONOCYTES (AUTO) 0.5 10^3/uL (0.1-1.4); ABSOLUTE NEUT (AUTO) 3.4 10^3/uL (1.7-8.2); BASOPHILS % (AUTO) 0.9 % (0-2); EOSINOPHILS % (AUTO) 4.3 % (0-6); HEMOGLOBIN 14.7 g/dL (12.0-15.5); LYMPHOCYTES % (AUTO) 40.5 % (13-45); MEAN CORPUSCULAR HEMOGLOBIN 33.3 pg (27.0-33.4); MEAN CORPUSCULAR HGB CONC 34.9 g/dL (32.0-36.0); MEAN CORPUSCULAR VOLUME 96 fl (80-97); MONOCYTES % (AUTO) 7.1 % (3-13); PLATELET COUNT 198 10^3/uL (150-450); RED CELL DISTRIBUTION WIDTH 12.5 % (11.5-14.0); SEGMENTED NEUTROPHILS % (AUTO) 47.2 % (42-78); TOTAL CELLS COUNTED % (AUTO) 100 %; WHITE BLOOD COUNT 7.3 10^3/uL (4.0-10.5)
[2020-01-21 22:05] LABS: ALBUMIN 4.8 g/dL (3.5-5.0); ALKALINE PHOSPHATASE 48 U/L (38-126); ANION GAP 5 (5-19); ASPARTATE AMINO TRANSFERASE 19 U/L (14-36); BILIRUBIN,DIRECT 0.1 mg/dL (0.0-0.4); BILIRUBIN,TOTAL 0.3 mg/dL (0.2-1.3); BLOOD UREA NITROGEN 11 mg/dL (7-20); CALCIUM 9.9 mg/dL (8.4-10.2); CARBON DIOXIDE 31 mmol/L (22-30); CHLORIDE 103 mmol/L (98-107); GLUCOSE 91 mg/dL (75-110); POTASSIUM 3.8 mmol/L (3.6-5.0); TOTAL PROTEIN 7.7 g/dL (6.3-8.2)
--- NOTE | 2020-01-21 23:59 | ER Document Report ---
ED ENT - General Chief Complaint: Difficulty Swallowing Stated Complaint: SORE THROAT/DIFFICULTY IN SWALLOWING Time Seen by Provider: 01/21/20 21:11 Primary Care Provider: ELIZABETH SMALLS MD [Primary Care Provider] - Follow up as needed Mode of Arrival: Ambulatory Notes: Patient presents complaining of left-sided neck pain with swelling. Patient reports some throat discomfort. Patient states that she did choke earlier today but has been able to manage her oral secretions. Patient denies any vomiting. Patient denies any fever. Patient denies any injury. Patient states she does have a history of hypothyroidism and her TSH has been elevated recently. TRAVEL OUTSIDE OF THE [place] IN LAST 30 DAYS: No - HPI Patient complains to provider of: Throat problem Onset: This afternoon Onset/Duration: Gradual Pain Level: 4 Location of pain: Neck, Throat Associated symptoms: Neck pain, Sore throat. denies: Cough, Swollen glands Similar symptoms previously: No Recently seen / treated by doctor: Yes - Related Data Allergies/Adverse Reactions: Cephalosporins Allergy (Severe, Verified 11/30/19 13:07) Throat itching and swelling ciprofloxacin [From Cipro] Allergy (Severe, Verified 11/30/19 13:07) Blistering in mouth and throat ethyl alcohol Allergy (Severe, Verified 11/30/19 13:07) Shortness of Breath, cough, difficulty breathing fluticasone [From Flonase] Allergy (Severe, Verified 11/30/19 13:07) Migraine, nose bleed latex Allergy (Severe, Verified 11/30/19 13:07) RASH Penicillins Allergy (Severe, Verified 11/30/19 13:07) Throat swelling, difficulty breathing cephalexin [From Keflex] Allergy (Verified 11/30/19 13:07) Throat swelling, difficulty breathing dexlansoprazole [From Dexilant] Allergy (Verified 11/30/19 13:07) erythromycin base [From Erythrocin] Allergy (Verified 11/30/19 13:07) Hives fluoxetine [From Prozac] Allergy (Verified 11/30/19 13:07) metronidazole [From Flagyl] Allergy (Verified 11/30/19 13:07) Swelling of Throat prednisone Allergy (Verified 11/30/19 13:07) Tachycardia red dye Allergy (Verified 11/30/19 13:07) sertraline [From Zoloft] Allergy (Verified 11/30/19 13:07) sodium ferric gluconate complex [From Ferrlecit] Allergy (Verified 11/30/19 13:07) sucrose [From Ferrlecit] Allergy (Verified 11/30/19 13:07) aspirin Adverse Reaction (Verified 11/30/19 13:07) N&V Sulfa (Sulfonamide Antibiotics) Adverse Reaction (Verified 11/30/19 13:07) See Comments IV dye Allergy (Uncoded 11/30/19 13:07) arrhythmia vitamin B1 Allergy (Uncoded 11/30/19 13:07) Past Medical History - General Information source: Patient - Social History Smoking Status: Current Every Day Smoker Chew tobacco use (# tins/day): No Frequency of alcohol use: None Drug Abuse: None Lives with: Family Family History: Reviewed & Not Pertinent, Malignancy Patient has homicidal ideation: No - Past Medical History Cardiac Medical History: Reports: Hx Heart Attack - 2009, no stent, Hx Hyperc holesterolemia, Hx Hypertension - HX OF, no meds Denies: Hx Coronary Artery Disease Pulmonary Medical History: Reports: Hx Asthma, Hx COPD - INHALERS Neurological Medical History: Reports: Hx Migraine, Hx Seizures - NO MEDS - LAST 2013 - NOT CURRENT Endocrine Medical History: Reports: Hx Diabetes Mellitus Type 2, Hx Hypert hyroidism Renal/ Medical History: Denies: Hx Peritoneal Dialysis GI Medical History: Reports: Hx Gastroesophageal Reflux Disease Musculoskeletal Medical History: Denies Hx Arthritis Psychiatric Medical History: Reports: Hx Depression Past Surgical History: Reports: Hx Abdominal Surgery, Hx Cholecystectomy, Hx Gynecologic Surgery, Hx Hysterectomy, Hx Nose Surgery, Hx Orthopedic Surgery - Spinal Ablation, Hx Thyroid Surgery, Hx Tubal Ligation - Immunizations Immunizations up to date: Yes Hx Diphtheria, Pertussis, Tetanus Vaccination: No Review of Systems - Review of Systems Constitutional: No symptoms reported. denies: Fever, Recent illness EENT: Throat pain Cardiovascular: No symptoms reported Respiratory: No symptoms reported. denies: Short of breath Gastrointestinal: denies: No symptoms reported, Vomiting Genitourinary: No symptoms reported. denies: Dysuria Female Genitourinary: No symptoms reported Musculoskeletal: Muscle stiffness, Neck pain. denies: Back pain Skin: No symptoms reported. denies: Rash Hematologic/Lymphatic: No symptoms reported Neurological/Psychological: No symptoms reported Physical Exam - Vital signs Vitals: Temp Pulse Resp BP Pulse Ox 98.1 F 79 17 149/102 H 96 01/21/20 20:41 01/21/20 20:41 01/21/20 20:41 01/21/20 20:41 01/21/20 20:41 - General General appearance: Appears well, Alert In distress: None - HEENT Head: Normocephalic, Atraumatic Eyes: Normal Ears: Normal External canal: Normal Tympanic membrane: Normal Nasal: Normal Mouth/Lips: Normal Mucous membranes: Normal Pharynx: Normal. No: Erythema, Exudate, Retropharyngeal abscess, Tonsillar hypertrophy, Potential airway comprom. Neck: Other - Left sternocleidomastoid muscle tenderness with spasm. No: Lymphadenopathy, Meningismus, Neck mass - Respiratory Respiratory status: No respiratory distress Chest status: Nontender Breath sounds: Normal. No: Rales, Rhonchi, Stridor, Wheezing Chest palpation: Normal - Cardiovascular Rhythm: Regular Heart sounds: S1 appreciated, S2 appreciated - Back Back: Normal, Nontender - Extremities General upper extremity: Normal inspection, Normal ROM General lower extremity: Normal inspection, Normal ROM - Neurological Neuro grossly intact: Yes Cognition: Normal [place] Coma Scale Eye Opening: Spontaneous [place] Coma Scale Verbal: Oriented [place] Coma Scale Motor: Obeys Commands [place] Coma Scale Total: 15 - Psychological Associated symptoms: Normal affect, Normal mood - Skin Skin Temperature: Warm Skin Moisture: Dry Skin Color: Normal Course - Re-evaluation Re-evalutation: 01/22/20 00:33 Review of patient's noncontrasted CT scan demonstrates disc bulge in the cervical spine. Patient does have a history of chronic neck pain and recently had a radiofrequency ablation to help manage her pain symptoms. Patient with left lateral neck tenderness over the sternocleidomastoid muscle, pain is reproduced with palpation of this muscle. 01/22/20 01:23 Patient states that she sees neuro spine surgeon tomorrow for follow-up appointment. Patient has longstanding history of neck issues for which she sees pain management as well. Patient with negative rapid strep test. Patient advised of CT report findings as well as negative strep test and acute findings on her blood test here today. Offered patient dose of pain medication to help manage her pain symptoms. Patient encouraged to take her usual pain medication at home and to see her neurosurgeon as planned. - Vital Signs Vital signs: Temp Pulse Resp BP Pulse Ox 98.1 F 67 18 124/79 100 01/22/20 01:36 01/22/20 01:36 01/22/20 01:36 01/22/20 01:36 01/22/20 01:36 - Laboratory Result Diagrams: 01/21/20 21:37 01/21/20 21:37 Laboratory results interpreted by me: 01/21/20 21:37 Carbon Dioxide 31 H 01/22/20 01:23 Labs- All tests 24 hr 01/21/20 01/21/20 01/21/20 21:37 21:37 21:37 WBC 7.3 RBC 4.40 Hgb 14.7 Hct 42.0 MCV 96 MCH 33.3 MCHC 34.9 RDW 12.5 Plt Count 198 Lymph % (Auto) 40.5 [place] % (Auto) 7.1 Eos % (Auto) 4.3 Baso % (Auto) 0.9 Absolute Neuts (auto) 3.4 Absolute Lymphs (auto) 3.0 Absolute Monos (auto) 0.5 Absolute Eos (auto) 0.3 Absolute Basos (auto) 0.1 Seg Neutrophils % 47.2 Sodium 139.2 Potassium 3.8 Chloride 103 Carbon Dioxide 31 H Anion Gap 5 BUN 11 Creatinine 0.73 Est GFR ( Amer) > 60 Est GFR (MDRD) Non-Af > 60 Glucose 91 Calcium 9.9 Total Bilirubin 0.3 Direct Bilirubin 0.1 Neonat Total Bilirubin Not Reportable Neonat Direct Bilirubin Not Reportable Neonat Indirect Bili Not Reportable AST 19 ALT 13 Alkaline Phosphatase 48 Total Protein 7.7 Albumin 4.8 Serum HCG, Qual NEGATIVE Group A Strep Rapid 01/21/20 23:50 WBC RBC Hgb Hct MCV MCH MCHC RDW Plt Count Lymph % (Auto) [place] % (Auto) Eos % (Auto) Baso % (Auto) Absolute Neuts (auto) Absolute Lymphs (auto) Absolute Monos (auto) Absolute Eos (auto) Absolute Basos (auto) Seg Neutrophils % Sodium Potassium Chloride Carbon Dioxide Anion Gap BUN Creatinine Est GFR ( Amer) Est GFR (MDRD) Non-Af Glucose Calcium Total Bilirubin Direct Bilirubin Neonat Total Bilirubin Neonat Direct Bilirubin Neonat Indirect Bili AST ALT Alkaline Phosphatase Total Protein Albumin Serum HCG, Qual Group A Strep Rapid NEGATIVE - Diagnostic Test Radiology reviewed: Reports reviewed Discharge - Discharge Clinical Impression: Sternocleidomastoid muscle tenderness, Sore throat Condition: Stable Disposition: HOME, SELF-CARE Instructions: Muscle Strain ([facility]), Sore Throat ([facility]), Warm Packs ([facility]) Additional Instructions: Return immediately for any new or worsening symptoms Followup with your primary care provider, call tomorrow to make a followup appointment Follow-up with your neurosurgeon as planned Throat culture is pending, we will call if you need any different treatment Referrals: ELIZABETH SMALLS MD [Primary Care Provider] - Follow up as needed
--- NOTE | 2020-01-22 | RADIOLOGY REPORT (SQ) ---
EXAM DESCRIPTION: CT SOFT TISSUE NECK WITHOUT CLINICAL HISTORY: Neck swelling, pain, technologist notes recent spinal ablation. TECHNIQUE: Multiple-row detector helical CT examination of the neck without IV contrast. This exam was performed according to our departmental dose optimization program, and includes the following measures where applicable: automated exposure control, adjustment of the mAs and/or kVp according to patient size and/or exam, and an iterative reconstruction algorithm. COMPARISON: CT Neck October 05, 2019. FINDINGS: There are no pathologically enlarged, necrotic, or otherwise abnormal lymph nodes. The thyroid gland is surgically absent. The aerodigestive structures demonstrate no masses. The parotid and submandibular glands appear within normal limits. Evaluation of the visualized portions of brain parenchyma and orbits demonstrates no abnormality. The visible paranasal sinuses and tympanomastoid cavities are predominantly clear. Limited evaluation of the lung apices demonstrates no abnormality. Exam is not optimized for evaluation of the cervical spine. However, there is evidence of mild multilevel degenerative changes most prominently affecting the C5-6 level. There is suggestion of underlying diffuse disc bulge at this level. IMPRESSION: Technically limited noncontrast technique. No discrete soft tissue abnormality is noted. Exam is not optimized for evaluation of the cervical spine. However, there is suggestion of a diffuse disc bulge at the C5-6 level. Consider MRI for further evaluation if clinically indicated.
[2020-01-22] MEDS ORDERED: OXYCODONE-ACETAMINOPHEN 5-325 MG TABLET PO ONE (01:23)
[2020-01-22 01:38] VITALS: BP 124/79
== END 2020-01-22 01:36 | disposition home or self-care (01) ==
LOC: ER 20:32
DX: J02.9 Acute pharyngitis, unspecified (principal); M62.838 Other muscle spasm; M50.80 Other cervical disc disorders, unspecified cervical region; I10 Essential (primary) hypertension; J44.9 Chronic obstructive pulmonary disease, unspecified; F17.200 Nicotine dependence, unspecified, uncomplicated; Z79.899 Other long term (current) drug therapy; Z88.1 Allergy status to other antibiotic agents; Z88.8 Allergy status to other drugs, medicaments and biological substances; Z91.018 Allergy to other foods; Z91.040 Latex allergy status; Z88.0 Allergy status to penicillin; Z91.048 Other nonmedicinal substance allergy status; Z88.2 Allergy status to sulfonamides; Z91.041 Radiographic dye allergy status
CPT/HCPCS: 36415; 70490; 80053; 84703; 85025; 87070; 87880; 99284

== ENCOUNTER 2020-02-21 16:09 | Emergency (ER) | payer BC | END 2020-02-21 17:00 | disposition left against medical advice (07) | LOC: ER 16:09 | DX: Z53.21 Procedure and treatment not carried out due to patient leaving prior to being seen by health care provider (principal) ==

== ENCOUNTER 2020-02-22 12:22 | Emergency (ER) | payer BC ==
--- NOTE | 2020-02-22 13:40 | ER Document Report ---
ED Medical Screen (RME) - General Chief Complaint: Back Pain Stated Complaint: LOW BACK SWELLING Time Seen by Provider: 02/22/20 13:30 Primary Care Provider: ELIZABETH SMALLS MD [Primary Care Provider] - Follow up as needed Mode of Arrival: Ambulatory Information source: Patient Notes: HPI; 44-year-old female presents to the emergency room complaining of swelling and pain to her lower back for the past 2 days. Patient states she does have a history of lower lumbar herniated disks as well as spondylosis. States she had a spinal ablation approximately 2 months ago. History of chronic back pain. States she did do a lot of heavy lifting last week but denies any acute trauma. Some dysuria, denies loss control of her bowels or bladder. No saddle anesthesia. No red flags. States she has Percocet for chronic pain but has not taken any for her pain this time. Patient drove self to the emergency room. LMP 6 weeks ago. PE: Alert and oriented x3. Lungs: Clear to auscultation, without rales, rhonchi, wheezes. Heart: Regular rate rhythm without murmurs, rubs, gallops. Tenderness to the lower lumbar region from L4-S1. There is tenderness over the right sciatic notch. There is mild swelling noted in the lower lumbar region. Negative straight leg raising bilaterally. Ambulatory with steady gait. Neurovascularly intact. I have greeted and performed a rapid initial assessment of this patient. A comprehensive ED assessment and evaluation of the patient, analysis of test results and completion of the medical decision making process will be conducted by additional ED providers. I have specifically instructed the patient or family members with the patient to immediately return to any nursing staff should anything change in the patient's condition or with their chief complaint. TRAVEL OUTSIDE OF THE [place] IN LAST 30 DAYS: No - Related Data Allergies/Adverse Reactions: Cephalosporins Allergy (Severe, Verified 02/22/20 13:29) Throat itching and swelling ciprofloxacin [From Cipro] Allergy (Severe, Verified 02/22/20 13:29) Blistering in mouth and throat ethyl alcohol Allergy (Severe, Verified 02/22/20 13:29) Shortness of Breath, cough, difficulty breathing fluticasone [From Flonase] Allergy (Severe, Verified 02/22/20 13:29) Migraine, nose bleed latex Allergy (Severe, Verified 02/22/20 13:29) RASH Penicillins Allergy (Severe, Verified 02/22/20 13:29) Throat swelling, difficulty breathing cephalexin [From Keflex] Allergy (Verified 02/22/20 13:29) Throat swelling, difficulty breathing dexlansoprazole [From Dexilant] Allergy (Verified 02/22/20 13:29) erythromycin base [From Erythrocin] Allergy (Verified 02/22/20 13:29) Hives fluoxetine [From Prozac] Allergy (Verified 02/22/20 13:29) metronidazole [From Flagyl] Allergy (Verified 02/22/20 13:29) Swelling of Throat prednisone Allergy (Verified 02/22/20 13:29) Tachycardia red dye Allergy (Verified 02/22/20 13:29) sertraline [From Zoloft] Allergy (Verified 02/22/20 13:29) sodium ferric gluconate complex [From Ferrlecit] Allergy (Verified 02/22/20 13:29) sucrose [From Ferrlecit] Allergy (Verified 02/22/20 13:29) aspirin Adverse Reaction (Verified 02/22/20 13:29) N&V Sulfa (Sulfonamide Antibiotics) Adverse Reaction (Verified 02/22/20 13:29) See Comments IV dye Allergy (Uncoded 02/22/20 13:29) arrhythmia vitamin B1 Allergy (Uncoded 02/22/20 13:29) Past Medical History - Social History Family history: None - Past Medical History Cardiac Medical History: Reports: Hx Heart Attack - 2009, no stent, Hx Hypercholesterolemia, Hx Hypertension - HX OF, no meds Denies: Hx Coronary Artery Disease Pulmonary Medical History: Reports: Hx Asthma, Hx COPD - INHALERS Denies: Hx Bronchitis, Hx Pneumonia Neurological Medical History: Reports: Hx Migraine, Hx Seizures - NO MEDS - LAST 2013 - NOT CURRENT. Denies: Hx Cerebrovascular Accident Endocrine Medical History: Reports: Hx Diabetes Mellitus Type 2, Hx Hype rthyroidism Renal/ Medical History: Denies: Hx Peritoneal Dialysis GI Medical History: Reports: Hx Gastroesophageal Reflux Disease Musculoskeltal Medical History: Denies Hx Arthritis Psychiatric Medical History: Reports: Hx Depression Past Surgical History: Reports: Hx Abdominal Surgery, Hx Cholecystectomy, Hx Gynecologic Surgery, Hx Hysterectomy, Hx Nose Surgery, Hx Orthopedic Surgery - Spinal Ablation, Hx Thyroid Surgery, Hx Tubal Ligation - Immunizations Immunizations up to date: Yes Hx Diphtheria, Pertussis, Tetanus Vaccination: No Physical Exam - Vital signs Vitals: Temp Pulse Resp BP Pulse Ox 97.7 F 96 14 130/86 H 98 02/22/20 12:25 02/22/20 12:25 02/22/20 12:25 02/22/20 12:25 02/22/20 12:25 Course - Vital Signs Vital signs: Temp Pulse Resp BP Pulse Ox 97.7 F 96 14 130/86 H 98 02/22/20 12:25 02/22/20 12:25 02/22/20 12:25 02/22/20 12:25 02/22/20 12:25 Doctor's Discharge - Discharge Referrals: ELIZABETH SMALLS MD [Primary Care Provider] - Follow up as needed
[2020-02-22 14:34] LABS: ABSOLUTE BASOPHILS # (AUTO) 0.1 10^3/uL (0.0-0.2); ABSOLUTE EOSINOPHILS # (AUTO) 0.2 10^3/uL (0.0-0.6); ABSOLUTE LYMPHOCYTES (AUTO) 1.8 10^3/uL (0.5-4.7); ABSOLUTE MONOCYTES (AUTO) 0.5 10^3/uL (0.1-1.4); ABSOLUTE NEUT (AUTO) 5.3 10^3/uL (1.7-8.2); BASOPHILS % (AUTO) 0.8 % (0-2); EOSINOPHILS % (AUTO) 2.9 % (0-6); HEMATOCRIT 44.9 % (36.0-47.0); HEMOGLOBIN 15.5 g/dL (12.0-15.5); LYMPHOCYTES % (AUTO) 22.8 % (13-45); MEAN CORPUSCULAR HEMOGLOBIN 33.1 pg (27.0-33.4); MEAN CORPUSCULAR HGB CONC 34.5 g/dL (32.0-36.0); MEAN CORPUSCULAR VOLUME 96 fl (80-97); MONOCYTES % (AUTO) 6.5 % (3-13); PLATELET COUNT 166 10^3/uL (150-450); RED BLOOD COUNT 4.68 10^6/uL (3.72-5.28); RED CELL DISTRIBUTION WIDTH 12.7 % (11.5-14.0); TOTAL CELLS COUNTED % (AUTO) 100 %
[2020-02-22 14:51] LABS: APPEARANCE,URINE CLEAR; BILIRUBIN,URINE NEGATIVE (NEGATIVE); COLOR,URINE YELLOW; GLUCOSE, URINE NEGATIVE (NEGATIVE); KETONES,URINE NEGATIVE (NEGATIVE); LEUKOCYTE ESTERASE,URINE MODERATE (NEGATIVE); NITRITE,URINE NEGATIVE (NEGATIVE); PROTEIN,URINE NEGATIVE (NEGATIVE); URINE SPECIFIC GRAVITY 1.014; UROBILINOGEN,URINE NEGATIVE mg/dL (<2.0)
[2020-02-22 14:55] LABS: ALBUMIN 4.3 g/dL (3.5-5.0); ALKALINE PHOSPHATASE 54 U/L (38-126); ANION GAP 8 (5-19); ASPARTATE AMINO TRANSFERASE 25 U/L (14-36); BILIRUBIN,DIRECT 0.3 mg/dL (0.0-0.4); BILIRUBIN,TOTAL 0.4 mg/dL (0.2-1.3); BLOOD UREA NITROGEN 16 mg/dL (7-20); CALCIUM 9.5 mg/dL (8.4-10.2); CARBON DIOXIDE 26 mmol/L (22-30); CHLORIDE 105 mmol/L (98-107); GLUCOSE 80 mg/dL (75-110); POTASSIUM 4.7 mmol/L (3.6-5.0); TOTAL PROTEIN 7.2 g/dL (6.3-8.2)
--- NOTE | 2020-02-22 17:08 | RADIOLOGY REPORT (SQ) ---
EXAM DESCRIPTION: CT LUMBAR SPINE WITHOUT IMAGES COMPLETED DATE/TIME: 02/22/2020 4:47 pm REASON FOR STUDY: back pain/swelling COMPARISON: None. TECHNIQUE: Axial images acquired through the lumbar spine without intravenous contrast. Images revi ewed with lung, soft tissue and bone windows. Reconstructed coronal and sagittal MPR images reviewed . All images stored on PACS. All CT scanners at this facility use dose modulation, iterative reconstruction, and/or weight based d osing when appropriate to reduce radiation dose to as low as reasonably achievable (ALARA). [facility]: Dose Right [facility]: CareDose [facility]: Dose Right [facility]: Teradose 4D [facility]: Cap That RADIATION DOSE: mGy. LIMITATIONS: None. FINDINGS: SEGMENTATION: Normal. No transitional anatomy. ALIGNMENT: Normal. VERTEBRAL BODIES: No fractures. No dislocation. No acute findings. DISCS: No significant protrusions. Study limited by lack of intrathecal contrast. PEDICLES, TRANSVERSE PROCESSES: No fractures. No dislocation. No acute findings. FACETS, POSTERIOR ELEMENTS: There are bilateral pars defects at L5. HARDWARE: None in the spine. VISUALIZED RIBS: No fractures. SOFT TISSUES: No significant or acute finding in adjacent soft tissues. OTHER: No other significant finding. IMPRESSION: Bilateral spondylolysis at L5. No other significant findings in the lumbosacral spine. TECHNICAL DOCUMENTATION: JOB ID: [id number] Quality ID # [id number]: Final reports with documentation of one or more dose reduction techniques (e.g., Au tomated exposure control, adjustment of the mA and/or kV according to patient size, use of iterative reconstruction technique) 2010 [employer]- All Rights Reserved Reading location - IP/workstation name: [email or web address]
--- NOTE | 2020-02-22 17:11 | ER Document Report ---
ED Neck/Back Problem - General Chief Complaint: Back Pain Stated Complaint: LOW BACK SWELLING Time Seen by Provider: 02/22/20 13:30 Primary Care Provider: ELIZABETH SMALLS MD [Primary Care Provider] - Follow up as needed Mode of Arrival: Ambulatory Notes: CHIEF COMPLAINT: Low back pain for 3 days HPI: 44-year-old female with history of chronic back problems presenting for low back pain with questionable bulging of soft tissue in the low back over the last 3 days. She did lift something improperly a week ago and had some back discomfort at the time which seem to get better before getting worse over the last 3 days. No incontinence of urine or bowel. Pain is worse with movement. She has pain medication at home but did not take any because she states she does not like to take medicines for pain. Denies new weakness numbness or tingling in the lower extremities. ROS: See HPI - all other systems were reviewed and are otherwise negative Constitutional: no fever Eyes: no drainage, no blurred vision ENT: no runny nose, no sore throat Cardiovascular: no chest pain Resp: no SOB, no cough GI: no vomiting, no diarrhea, no abdominal pain : no dysuria Integumentary: no rash Allergy: no hives Musculoskeletal: no extremity pain or swelling, positive back pain Neurological: no numbness/tingling, no weakness MEDICATIONS: I agree with the patient medications as charted by the RN. ALLERGIES: I agree with the allergies as charted by the RN. PAST MEDICAL HISTORY/PAST SURGICAL HISTORY: Reviewed and agree as charted by RN. SOCIAL HISTORY: Reviewed and agree as charted by RN. FAMILY HISTORY: No significant familial comorbid conditions directly related to patient complaint EXAM: Reviewed vital signs as charted by RN. CONSTITUTIONAL: Alert and oriented and responds appropriately to questions. Well-appearing; well-nourished HEAD: Normocephalic; atraumatic EYES: Conjunctivae clear, sclerae non-icteric ENT: normal nose; no rhinorrhea; moist mucous membranes NECK: Supple without meningismuss CARD: symmetric distal pulses RESP: Normal chest excursion without splinting or tachypnea ABD/GI: Normal bowel sounds; non-distended; soft, non-tender, no rebound, no guarding; no palpable organomegaly or masses. BACK: The back appears normal and is mildly tender to palpation with no visible significant soft tissue swelling noted, there is no CVA tenderness EXT: Normal ROM in all joints; non-tender to palpation; no cyanosis, no effusions, no edema SKIN: Normal color for age and race; warm; dry; good turgor; no acute lesions noted NEURO: Moves all extremities equally; Motor and sensory function intact. Strength equal 5/5 bilateral lower extremities. Sensation intact and equal bilateral lower extremities. Straight leg raise is negative. No saddle anesthesia on exam. DTRs 2+ intact and equal bilateral lower extremities. PSYCH: The patient's mood and manner are appropriate. Grooming and personal hygiene are appropriate. MDM: 44-year-old female with multiple allergies with low back pain over the last 3 days. Possible injury a week ago. She does have pain management and a primary who follows her for her back issues. She has pain medicine at home. Initial screening labs obtained in the triage process show probable UTI she states she cannot take Macrobid for UTIs. Awaiting results of lumbar spine CT. eatment and testing was consistent with current guidelines for patients who present with complaints or symptoms that may be related to COVID-19 TRAVEL OUTSIDE OF THE [place] IN LAST 30 DAYS: No - Related Data Allergies/Adverse Reactions: Cephalosporins Allergy (Severe, Verified 02/22/20 13:29) Throat itching and swelling ciprofloxacin [From Cipro] Allergy (Severe, Verified 02/22/20 13:29) Blistering in mouth and throat ethyl alcohol Allergy (Severe, Verified 02/22/20 13:29) Shortness of Breath, cough, difficulty breathing fluticasone [From Flonase] Allergy (Severe, Verified 02/22/20 13:29) Migraine, nose bleed latex Allergy (Severe, Verified 02/22/20 13:29) RASH Penicillins Allergy (Severe, Verified 02/22/20 13:29) Throat swelling, difficulty breathing cephalexin [From Keflex] Allergy (Verified 02/22/20 13:29) Throat swelling, difficulty breathing dexlansoprazole [From Dexilant] Allergy (Verified 02/22/20 13:29) erythromycin base [From Erythrocin] Allergy (Verified 02/22/20 13:29) Hives fluoxetine [From Prozac] Allergy (Verified 02/22/20 13:29) metronidazole [From Flagyl] Allergy (Verified 02/22/20 13:29) Swelling of Throat prednisone Allergy (Verified 02/22/20 13:29) Tachycardia red dye Allergy (Verified 02/22/20 13:29) sertraline [From Zoloft] Allergy (Verified 02/22/20 13:29) sodium ferric gluconate complex [From Ferrlecit] Allergy (Verified 02/22/20 13:29) sucrose [From Ferrlecit] Allergy (Verified 02/22/20 13:29) aspirin Adverse Reaction (Verified 02/22/20 13:29) N&V Sulfa (Sulfonamide Antibiotics) Adverse Reaction (Verified 02/22/20 13:29) See Comments IV dye Allergy (Uncoded 02/22/20 13:29) arrhythmia vitamin B1 Allergy (Uncoded 02/22/20 13:29) Past Medical History - General Information source: Patient - Social History Smoking Status: Current Every Day Smoker Family History: Reviewed & Not Pertinent, Malignancy - Past Medical History Cardiac Medical History: Reports: Hx Heart Attack - 2009, no stent, Hx Hypercholesterolemia, Hx Hypertension - HX OF, no meds Denies: Hx Coronary Artery Disease Pulmonary Medical History: Reports: Hx Asthma, Hx COPD - INHALERS Denies: Hx Bronchitis, Hx Pneumonia Neurological Medical History: Reports: Hx Migraine, Hx Seizures - NO MEDS - LAST 2013 - NOT CURRENT. Denies: Hx Cerebrovascular Accident Endocrine Medical History: Reports: Hx Diabetes Mellitus Type 2, Hx Hyperthyroidism Renal/ Medical History: Denies: Hx Peritoneal Dialysis GI Medical History: Reports: Hx Gastroesophageal Reflux Disease Musculoskeletal Medical History: Denies Hx Arthritis Psychiatric Medical History: Reports: Hx Depression Past Surgical History: Reports: Hx Abdominal Surgery, Hx Cholecystectomy, Hx Gynecologic Surgery, Hx Hysterectomy, Hx Nose Surgery, Hx Orthopedic Surgery - Spinal Ablation, Hx Thyroid Surgery, Hx Tubal Ligation - Immunizations Immunizations up to date: Yes Hx Diphtheria, Pertussis, Tetanus Vaccination: No Physical Exam - Vital signs Vitals: Temp Pulse Resp BP Pulse Ox 97.7 F 96 14 130/86 H 98 02/22/20 12:25 02/22/20 12:25 02/22/20 12:25 02/22/20 12:25 02/22/20 12:25 Course - Re-evaluation Re-evalutation: 02/22/20 17:[address] does not show acute findings. Will treat UTI with Macrobid, states that she has been recommended to take Robaxin before we will prescribe this for her she will follow up with her PCP - Vital Signs Vital signs: Temp Pulse Resp BP Pulse Ox 97.7 F 96 14 130/86 H 98 02/22/20 12:25 02/22/20 12:25 02/22/20 12:25 02/22/20 12:25 02/22/20 12:25 - Laboratory Results Result Diagrams: 02/22/20 13:55 02/22/20 13:55 Laboratory Results Interpreted: 02/22/20 13:55 Ur Leukocyte Esterase MODERATE H Critical Laboratory Results Reviewed: No Critical Results - Radiology Results Critical Radiology Results Reviewed: No Critical Results Discharge - Discharge Clinical Impression: Acute exacerbation of chronic low back pain UTI (urinary tract infection) Qualifiers: Urinary tract infection type: acute cystitis Hematuria presence: with hematuria Qualified Code(s): N30.01 - Acute cystitis with hematuria Condition: Stable Disposition: HOME, SELF-CARE Additional Instructions: Take the Macrobid to treat the urinary infection. Take the Robaxin for the back spasm. Follow-up with your primary care provider for reevaluation of symptoms call for appointment. Prescriptions: Nitrofurantoin Monohyd/M-Cryst [Macrobid 100 mg Capsule] 100 mg PO BID #14 cap Methocarbamol [Robaxin 750 mg Tablet] 750 mg PO ASDIR PRN #40 tablet PRN Reason: Referrals: ELIZABETH SMALLS MD [Primary Care Provider] - Follow up as needed
[2020-02-22] MEDS ORDERED: NITROFURANTOIN MONOHYD/M-CRYST 100 MG CAPSULE PO ONE (17:53)
[2020-02-22 18:11] VITALS: BP 136/94
== END 2020-02-22 18:18 | disposition home or self-care (01) ==
LOC: ER 12:22
DX: M47.816 Spondylosis without myelopathy or radiculopathy, lumbar region (principal); N30.01 Acute cystitis with hematuria; I10 Essential (primary) hypertension; J44.9 Chronic obstructive pulmonary disease, unspecified; E11.9 Type 2 diabetes mellitus without complications; F17.200 Nicotine dependence, unspecified, uncomplicated; Z88.1 Allergy status to other antibiotic agents; Z91.018 Allergy to other foods; Z88.8 Allergy status to other drugs, medicaments and biological substances; Z91.040 Latex allergy status; Z88.0 Allergy status to penicillin; Z91.048 Other nonmedicinal substance allergy status; Z88.2 Allergy status to sulfonamides; Z91.041 Radiographic dye allergy status
CPT/HCPCS: 99284; 36415; 84703; 85025; 80053; 81001; 72131; J8499

== ENCOUNTER 2020-02-23 10:18 | Emergency (ER) | payer BC ==
--- NOTE | 2020-02-23 11:04 | ER Document Report ---
ED Medical Screen (RME) - General Chief Complaint: Facial Swelling Stated Complaint: FACIAL SWELLING,HEART RACING Time Seen by Provider: 02/23/20 10:55 Primary Care Provider: ELIZABETH SMALLS MD [Primary Care Provider] - Follow up as needed Mode of Arrival: Ambulatory Information source: Patient Notes: HPI; 44-year-old female presents the emergency room with burning in her chest that started last night that has persisted today. Patient states around 930 this morning she started with left-sided jaw pain and swelling. No trauma or injury. Was started on Macrobid last night for UTI states she is taken Macrobid in the past without any side effects. Was given a prescription for Robaxin but she was at the pharmacy picking it up when the swelling started. Burning in her chest is persistent but she also states she had a burrito last night. Denies any nausea, vomiting, no diaphoresis. No shortness of breath, no difficulty breathing. PE: Alert and oriented x3. Lungs: Clear to auscultation without rales, rhonchi, wheezes. Heart: Tachycardic without murmurs, rubs, gallops. Tenderness and swelling to the left jaw, no erythema. No rash. No lymphadenopathy noted. I have greeted and performed a rapid initial assessment of this patient. A comprehensive ED assessment and evaluation of the patient, analysis of test results and completion of the medical decision making process will be conducted by additional ED providers. I have specifically instructed the patient or family members with the patient to immediately return to any nursing staff should anything change in the patient's condition or with their chief complaint. TRAVEL OUTSIDE OF THE [place] IN LAST 30 DAYS: No - Related Data Allergies/Adverse Reactions: Cephalosporins Allergy (Severe, Verified 02/23/20 11:03) Throat itching and swelling ciprofloxacin [From Cipro] Allergy (Severe, Verified 02/23/20 11:03) Blistering in mouth and throat ethyl alcohol Allergy (Severe, Verified 02/23/20 11:03) Shortness of Breath, cough, difficulty breathing fluticasone [From Flonase] Allergy (Severe, Verified 02/23/20 11:03) Migraine, nose bleed latex Allergy (Severe, Verified 02/23/20 11:03) RASH Penicillins Allergy (Severe, Verified 02/23/20 11:03) Throat swelling, difficulty breathing cephalexin [From Keflex] Allergy (Verified 02/23/20 11:03) Throat swelling, difficulty breathing dexlansoprazole [From Dexilant] Allergy (Verified 02/23/20 11:03) erythromycin base [From Erythrocin] Allergy (Verified 02/23/20 11:03) Hives fluoxetine [From Prozac] Allergy (Verified 02/23/20 11:03) metronidazole [From Flagyl] Allergy (Verified 02/23/20 11:03) Swelling of Throat prednisone Allergy (Verified 02/23/20 11:03) Tachycardia red dye Allergy (Verified 02/23/20 11:03) sertraline [From Zoloft] Allergy (Verified 02/23/20 11:03) sodium ferric gluconate complex [From Ferrlecit] Allergy (Verified 02/23/20 11:03) sucrose [From Ferrlecit] Allergy (Verified 02/23/20 11:03) aspirin Adverse Reaction (Verified 02/23/20 11:03) N&V Sulfa (Sulfonamide Antibiotics) Adverse Reaction (Verified 02/23/20 11:03) See Comments IV dye Allergy (Uncoded 02/23/20 11:03) arrhythmia vitamin B1 Allergy (Uncoded 02/23/20 11:03) Past Medical History - Social History Family history: None - Past Medical History Cardiac Medical History: Reports: Hx Heart Attack - 2009, no stent, Hx Hypercholesterolemia, Hx Hypertension - HX OF, no meds Denies: Hx Coronary Artery Disease Pulmonary Medical History: Reports: Hx Asthma, Hx COPD - INHALERS Denies: Hx Bronchitis, Hx Pneumonia Neurological Medical History: Reports: Hx Migraine, Hx Seizures - NO MEDS - LAST 2013 - NOT CURRENT. Denies: Hx Cerebrovascular Accident Endocrine Medical History: Reports: Hx Diabetes Mellitus Type 2, Hx Hyperthyroidism Renal/ Medical History: Denies: Hx Peritoneal Dialysis GI Medical History: Reports: Hx Gastroesophageal Reflux Disease Musculoskeltal Medical History: Denies Hx Arthritis Psychiatric Medical History: Reports: Hx Depression Past Surgical History: Reports: Hx Abdominal Surgery, Hx Cholecystectomy, Hx Gynecologic Surgery, Hx Hysterectomy, Hx Nose Surgery, Hx Orthopedic Surgery - Spinal Ablation, Hx Thyroid Surgery, Hx Tubal Ligation - Immunizations Immunizations up to date: Yes Hx Diphtheria, Pertussis, Tetanus Vaccination: No Physical Exam - Vital signs Vitals: Temp Pulse Resp BP Pulse Ox 98.2 F 108 H 20 137/85 H 100 02/23/20 10:23 02/23/20 10:23 02/23/20 10:23 02/23/20 10:23 02/23/20 10:23 Course - Vital Signs Vital signs: Temp Pulse Resp BP Pulse Ox 98.2 F 108 H 20 137/85 H 100 02/23/20 10:23 02/23/20 10:23 02/23/20 10:23 02/23/20 10:23 02/23/20 10:23 Doctor's Discharge - Discharge Referrals: ELIZABETH SMALLS MD [Primary Care Provider] - Follow up as needed
[2020-02-23 11:26] LABS: ABSOLUTE EOSINOPHILS # (AUTO) 0.2 10^3/uL (0.0-0.6); ABSOLUTE LYMPHOCYTES (AUTO) 1.3 10^3/uL (0.5-4.7); ABSOLUTE MONOCYTES (AUTO) 0.5 10^3/uL (0.1-1.4); ABSOLUTE NEUT (AUTO) 7.2 10^3/uL (1.7-8.2); BASOPHILS % (AUTO) 0.4 % (0-2); EOSINOPHILS % (AUTO) 2.3 % (0-6); HEMATOCRIT 46.4 % (36.0-47.0); HEMOGLOBIN 16.2 g/dL (12.0-15.5); LYMPHOCYTES % (AUTO) 13.8 % (13-45); MEAN CORPUSCULAR HEMOGLOBIN 33.1 pg (27.0-33.4); MEAN CORPUSCULAR HGB CONC 34.9 g/dL (32.0-36.0); MEAN CORPUSCULAR VOLUME 95 fl (80-97); MONOCYTES % (AUTO) 5.5 % (3-13); PLATELET COUNT 169 10^3/uL (150-450); RED CELL DISTRIBUTION WIDTH 12.8 % (11.5-14.0); TOTAL CELLS COUNTED % (AUTO) 100 %; WHITE BLOOD COUNT 9.2 10^3/uL (4.0-10.5)
--- NOTE | 2020-02-23 11:32 | RADIOLOGY REPORT (SQ) ---
EXAM DESCRIPTION: CHEST 2 VIEWS IMAGES COMPLETED DATE/TIME: 02/23/2020 11:24 am REASON FOR STUDY: chest pain COMPARISON: None. EXAM PARAMETERS: NUMBER OF VIEWS: two views TECHNIQUE: Digital Frontal and Lateral radiographic views of the chest acquired. RADIATION DOSE: NA LIMITATIONS: none FINDINGS: LUNGS AND PLEURA: No opacities, masses or pneumothorax. No pleural effusion. MEDIASTINUM AND HILAR STRUCTURES: No masses or contour abnormalities. HEART AND VASCULAR STRUCTURES: Heart normal size. No evidence for failure. BONES: No acute findings. HARDWARE: None in the chest. OTHER: No other significant finding. IMPRESSION: NO ACUTE RADIOGRAPHIC FINDING IN THE CHEST. TECHNICAL DOCUMENTATION: JOB ID: [id number] 2010 [employer]- All Rights Reserved Reading location - IP/workstation name: [email or web address]
[2020-02-23 11:51] LABS: ALBUMIN 4.5 g/dL (3.5-5.0); ALKALINE PHOSPHATASE 52 U/L (38-126); ANION GAP 5 (5-19); ASPARTATE AMINO TRANSFERASE 22 U/L (14-36); BILIRUBIN,DIRECT 0.3 mg/dL (0.0-0.4); BILIRUBIN,TOTAL 0.5 mg/dL (0.2-1.3); BLOOD UREA NITROGEN 16 mg/dL (7-20); CALCIUM 9.8 mg/dL (8.4-10.2); CARBON DIOXIDE 30 mmol/L (22-30); CHLORIDE 105 mmol/L (98-107); GLUCOSE 108 mg/dL (75-110); POTASSIUM 4.6 mmol/L (3.6-5.0); TOTAL PROTEIN 7.1 g/dL (6.3-8.2)
--- NOTE | 2020-02-23 14:51 | ER Document Report ---
ED GI/ - General Chief Complaint: Epigastric Pain Stated Complaint: FACIAL SWELLING,HEART RACING Time Seen by Provider: 02/23/20 10:55 Primary Care Provider: ELIZABETH SMALLS MD [Primary Care Provider] - Follow up as needed Mode of Arrival: Ambulatory Notes: CHIEF COMPLAINT: Multiple complaints HPI: 44-year-old female presenting with multiple complaints. Patient felt like she had some swelling to the left face near the cheek and salivary gland. Took no medications for this and states it is going down on its own. Also had some epigastric discomfort after eating a burrito. Has a history of reflux. No shortness of breath. States discomfort has also improved. ROS: See HPI - all other systems were reviewed and are otherwise negative Constitutional: no fever Eyes: no drainage, no blurred vision ENT: no runny nose, no sore throat Cardiovascular: no chest pain Resp: no SOB, no cough GI: no vomiting, no diarrhea, + abdominal pain : no dysuria Integumentary: no rash Allergy: no hives Musculoskeletal: no extremity pain or swelling Neurological: no numbness/tingling, no weakness MEDICATIONS: I agree with the patient medications as charted by the RN. ALLERGIES: I agree with the allergies as charted by the RN. PAST MEDICAL HISTORY/PAST SURGICAL HISTORY: Reviewed and agree as charted by RN. SOCIAL HISTORY: Reviewed and agree as charted by RN. FAMILY HISTORY: No significant familial comorbid conditions directly related to patient complaint EXAM: Reviewed vital signs as charted by RN. CONSTITUTIONAL: Alert and oriented and responds appropriately to questions. Well-appearing; well-nourished HEAD: Normocephalic; atraumatic EYES: PERRL; Conjunctivae clear, sclerae non-icteric ENT: normal nose; no rhinorrhea; moist mucous membranes; pharynx without lesions noted, no uvula edema or deviation, no tonsillar hypertrophy, phonation normal. There is no angioedema. There is no visible facial or neck swelling at this time NECK: Supple without meningismus; non-tender; no cervical lymphadenopathy, no masses. No stridor. CARD: RRR; no murmurs, no clicks, no rubs, no gallops; symmetric distal pulses RESP: Normal chest excursion without splinting or tachypnea; breath sounds clear and equal bilaterally; no wheezes, no rhonchi, no rales, pulse oximetry 98% on room air not hypoxic ABD/GI: Normal bowel sounds; non-distended; soft, non-tender, no rebound, no guarding; no palpable organomegaly or masses. BACK: The back appears normal and is non-tender to palpation, there is no CVA tenderness EXT: Normal ROM in all joints; non-tender to palpation; no cyanosis, no eff usions, no edema SKIN: Normal color for age and race; warm; dry; good turgor; no acute lesions no karis NEURO: Moves all extremities equally; Motor and sensory function intact PSYCH: The patient's mood and manner are appropriate. Grooming and personal hygiene are appropriate. MDM: 44-year-old female presenting for subjective left facial and cheek swelling which is not present on my exam. There is no angioedema. She may take Benadryl for recurrent symptoms. This is in the area of the salivary and parotid glands, she may use hard candies if she feels like this is becoming an issue. Doubt an acute allergic reaction at this time. Patient also had some epigastric discomfort after eating a burrito. Did seem to radiate up, screening labs and cardiac labs were negative for acute findings. Have low suspicion for ACS. EKG sinus rhythm with a ventricular rate of 91, FL 176, QT 360, QTc 443. Questionable borderline inferior Q waves but otherwise normal EKG, interpreted by emergency department physicians. The patient was evaluated during the global COVID-19 pandemic and that diagnosis was suspected/considered upon their initial presentation. Their evaluation, treatment and testing was consistent with current guidelines for patients who present with complaints or symptoms that may be related to COVID-19 TRAVEL OUTSIDE OF THE [place] IN LAST 30 DAYS: No - Related Data Allergies/Adverse Reactions: Cephalosporins Allergy (Severe, Verified 02/23/20 11:03) Throat itching and swelling ciprofloxacin [From Cipro] Allergy (Severe, Verified 02/23/20 11:03) Blistering in mouth and throat ethyl alcohol Allergy (Severe, Verified 02/23/20 11:03) Shortness of Breath, cough, difficulty breathing fluticasone [From Flonase] Allergy (Severe, Verified 02/23/20 11:03) Migraine, nose bleed latex Allergy (Severe, Verified 02/23/20 11:03) RASH Penicillins Allergy (Severe, Verified 02/23/20 11:03) Throat swelling, difficulty breathing cephalexin [From Keflex] Allergy (Verified 02/23/20 11:03) Throat swelling, difficulty breathing dexlansoprazole [From Dexilant] Allergy (Verified 02/23/20 11:03) erythromycin base [From Erythrocin] Allergy (Verified 02/23/20 11:03) Hives fluoxetine [From Prozac] Allergy (Verified 02/23/20 11:03) metronidazole [From Flagyl] Allergy (Verified 02/23/20 11:03) Swelling of Throat prednisone Allergy (Verified 02/23/20 11:03) Tachycardia red dye Allergy (Verified 02/23/20 11:03) sertraline [From Zoloft] Allergy (Verified 02/23/20 11:03) sodium ferric gluconate complex [From Ferrlecit] Allergy (Verified 02/23/20 11:03) sucrose [From Ferrlecit] Allergy (Verified 02/23/20 11:03) aspirin Adverse Reaction (Verified 02/23/20 11:03) N&V Sulfa (Sulfonamide Antibiotics) Adverse Reaction (Verified 02/23/20 11:03) See Comments IV dye Allergy (Uncoded 02/23/20 11:03) arrhythmia vitamin B1 Allergy (Uncoded 02/23/20 11:03) Home Medications: omeprazole. synthroid. macrobid Past Medical History - General Information source: Patient - Social History Smoking Status: Current Every Day Smoker Chew tobacco use (# tins/day): No Frequency of alcohol use: None Drug Abuse: None Family History: Reviewed & Not Pertinent, Malignancy - Past Medical History Cardiac Medical History: Reports: Hx Heart Attack - 2009, no stent, Hx Hypercholesterolemia, Hx Hypertension - HX OF, no meds Denies: Hx Coronary Artery Disease Pulmonary Medical History: Reports: Hx Asthma, Hx COPD - INHALERS Denies: Hx Bronchitis, Hx Pneumonia Neurological Medical History: Reports: Hx Migraine, Hx Seizures - NO MEDS - LAST 2013 - NOT CURRENT. Denies: Hx Cerebrovascular Accident Endocrine Medical History: Reports: Hx Diabetes Mellitus Type 2, Hx Hype rthyroidism Renal/ Medical History: Denies: Hx Peritoneal Dialysis GI Medical History: Reports: Hx Gastroesophageal Reflux Disease Musculoskeletal Medical History: Denies Hx Arthritis Psychiatric Medical History: Reports: Hx Depression Past Surgical History: Reports: Hx Abdominal Surgery, Hx Cholecystectomy, Hx Gynecologic Surgery, Hx Hysterectomy, Hx Nose Surgery, Hx Orthopedic Surgery - Spinal Ablation, Hx Thyroid Surgery, Hx Tubal Ligation - Immunizations Immunizations up to date: Yes Hx Diphtheria, Pertussis, Tetanus Vaccination: No Physical Exam - Vital signs Vitals: Temp Pulse Resp BP Pulse Ox 98.2 F 108 H 20 137/85 H 100 02/23/20 10:23 02/23/20 10:23 02/23/20 10:23 02/23/20 10:23 02/23/20 10:23 Course - Vital Signs Vital signs: Temp Pulse Resp BP Pulse Ox 98.2 F 108 H 20 137/85 H 100 02/23/20 10:23 02/23/20 10:23 02/23/20 10:23 02/23/20 10:23 02/23/20 10:23 - Laboratory Results Result Diagrams: 02/23/20 11:10 02/23/20 11:10 Laboratory Results Interpreted: 02/23/20 11:10 Hgb 16.2 H Critical Laboratory Results Reviewed: No Critical Results - Radiology Results Critical Radiology Results Reviewed: No Critical Results Discharge - Discharge Clinical Impression: Epigastric pain, Facial swelling Condition: Stable Disposition: HOME, SELF-CARE Additional Instructions: Benadryl for any recurrent facial swelling, use hard candies to help decompress the salivary glands. Continue your medications for reflux and avoid spicy or greasy foods. Follow-up with your primary care provider and gastroenterology people for further evaluation and treatment call for appointment Referrals: ELIZABETH SMALLS MD [Primary Care Provider] - Follow up as needed
[2020-02-23 15:03] VITALS: BP 117/70
--- NOTE | 2020-02-23 22:05 | EKG REPORT ---
SEVERITY:- BORDERLINE ECG - SINUS RHYTHM BORDERLINE INFERIOR Q WAVES : Confirmed by: Tomasz Mir 23-Feb-2020 22:05:07
== END 2020-02-23 15:02 | disposition home or self-care (01) ==
LOC: ER 10:18
DX: R10.13 Epigastric pain (principal); R22.9 Localized swelling, mass and lump, unspecified; F17.200 Nicotine dependence, unspecified, uncomplicated; I25.2 Old myocardial infarction; E78.00 Pure hypercholesterolemia, unspecified; I10 Essential (primary) hypertension; E11.9 Type 2 diabetes mellitus without complications
CPT/HCPCS: 36415; 71046; 80053; 84443; 84484; 85025; 93005; 93010; 99285